=== PATIENT | female | born 1970 | race Caucasian/White ===

== ENCOUNTER 2017-06-13 14:27 | Emergency (ER) | payer SELFPAY ==
[~2017-06-13] VITALS: Ht 165.1 cm; Wt 84.9 kg
[2017-06-13 14:30] VITALS: TEMP 37.2; Ht 165.1 cm; Wt 84.9 kg
--- NOTE | 2017-06-13 15:01 | EMERGENCY ROOM VISIT NOTE ---
History Report prepared by Priyank: River Brasher Under the Supervision of: Dr. Armando Turner M.D. First contact with patient: 14:35 Chief Complaint: FOOT PAIN Stated Complaint: MIGHT HAVE INFECTION ON BILAT FEET History of Present Illness The patient is a 47 year old female who presents to the Emergency Room with complaints of worsening erythema on her feet bilaterally that began a week ago. She rates her discomfort as a 2/10 in severity. The patient states that seven weeks ago she noticed she developed nodules on her feet and palms. She states that the areas have been tender to touch. The patient states that her feet changed over the last week and became erythematous and started peeling. She reports that she has also been experiencing nausea and vomited multiple times. The patient states that her vomit has been "mucous like". She reports that her last episode of emesis was four days ago. The patient denies taking medications , fevers, chills, diarrhea, blood in stools, new soaps, using chemicals, and recent travels. The patient states that she has a history of Chron's and was diagnosed 30 years ago. She reports that she recently had a flair up in March with symptoms including nausea and diarrhea. The patient states that she has not been taking medications and has not seen a physician for her condition. She states she has not had health insurance and has not seen a physician regarding her Crohn's or any other medical complaints in quite some time. Source of History: patient Onset: a week ago Position: foot (bilateral) Symptom Intensity: 2/10 Quality: other (erythema) Timing: worsening Associated Symptoms: + nausea, + vomiting, No fevers, No chills, No diarrhea Review of Systems See HPI for pertinent positives and negatives. A total of ten systems were reviewed and were otherwise negative. Past Medical & Surgical Medical Problems: (1) Crohn's disease Family History Diabetes mellitus Social History Smoking Status: Current Every Day Smoker Alcohol Use: none Marital Status: single Housing Status: lives alone Occupation Status: employed Current/Historical Medications Scheduled Naproxen (Aleve), 440 MG PO prn ud Allergies Uncoded Allergies: SULFA (Allergy, Intermediate, rash to face, 06/13/17) Physical Exam Vital Signs Date Time Temp Pulse Resp B/P (MAP) Pulse Ox O2 Delivery O2 Flow Rate FiO2 06/13/17 19:46 153 16 115/72 98 Room Air 06/13/17 16:51 152 06/13/17 16:18 155 16 116/87 99 Room Air 06/13/17 14:30 37.2 98 18 136/97 98 Room Air Physical Exam Physical Exam GENERAL: She is oriented to person, place, and time. She appears well- developed and well-nourished. She does not appear distressed. ____ HENT: Exam performed. Head: Normocephalic and atraumatic. Right Ear: External ear normal. No mastoid tenderness. Left Ear: External ear normal. No mastoid tenderness. Mouth/Throat: The oropharynx is moist. Petechiae noted on the roof of her mouth over the hard and soft palate. No trismus in the jaw. No dental abscesses or uvula swelling. No oropharyngeal exudate or tonsillar abscesses. ____ EYES: Conjunctivae and EOM are normal. Pupils are equal, round, and reactive to light. Right eye exhibits no discharge. Left eye exhibits no discharge. No scleral icterus. ____ NECK: Normal range of motion. Neck supple. No JVD present. No spinous process tenderness present. No carotid bruit present. No rigidity. No tracheal deviation and normal range of motion present. No Brudzinski's sign and no Kernig 's sign noted. ____ CV: Normal rate, regular rhythm, normal heart sounds and intact distal pulses. There is no peripheral edema. Palpable radial pulses bue. ____ PULM/CHEST: Effort normal and breath sounds normal. No respiratory distress. No stridor. She has no wheezes. She has no rales. Chest Wall: She exhibits no tenderness. ____ ABD: The abdomen is soft. Bowel sounds are normal. She has no distension. No mass is present. There is no tenderness. There is no rebound, no guarding, no Alvarez's sign and no tenderness at McBurney's point. Rovsig negative MUSC/SKEL: Normal range of motion. There is no peripheral edema, tenderness or deformity. LYMPH: No cervical adenopathy. ____ NEURO: She is alert and oriented to person, place, and time. She has normal strength. No cranial nerve deficit or sensory deficit. Coordination and gait normal. GCS eye subscore is 4. GCS verbal subscore is 5. GCS motor subscore is 6. Cerebellar tests wnl. ____ SKIN: Over bilateral dorsal feet she has erythema with sloughing of the skin. Nikolsky positive. pustules with some drainage. Palms have nodules that are tender to touch and mildly erythematous. Erythema with mild sloughing around perianal area. Erythematous vulvar plax. ____ PSYCH: She has a normal mood and affect. Her behavior is normal. Judgment and thought content normal. ____ RECTAL: Hemoccult positive. Medical Decision & Procedures ER Provider Diagnostic Interpretation: Radiology results as stated below per my review and radiologist interpretation: RIGHT FOOT 3 VIEWS CLINICAL HISTORY: Foot infection. FINDINGS: 3 views of the right foot are obtained. No prior studies are available for comparison at the time of dictation. The skeletal structures are well mineralized. No fracture is seen. No bony erosion or periostitis is identified. An os naviculari is incidentally noted. The joint spaces of the foot are maintained. Soft tissue edema is present throughout the foot. IMPRESSION: Soft tissue edema with no acute bony abnormality identified. Electronically signed by: Brennan Colón M.D. 06/13/2017 3:35 PM Dictated Date/Time: 06/13/2017 3:34 PM LEFT FOOT 3 VIEWS CLINICAL HISTORY: Foot infection. FINDINGS: 3 views of the left foot are obtained. No prior studies are available for comparison at the time of dictation. The skeletal structures are well mineralized. No fracture is seen. No bony erosion or periostitis is identified. The joint spaces of the foot are maintained. Soft tissue edema is present throughout the foot. IMPRESSION: Soft tissue edema with no acute bony abnormality identified. Electronically signed by: Brennan Colón M.D. 06/13/2017 3:33 PM Dictated Date/Time: 06/13/2017 3:32 PM SINGLE VIEW CHEST CLINICAL HISTORY: Central venous catheter placement. FINDINGS: An AP, portable, upright chest radiograph is obtained. No prior studies are available for comparison at the time of dictation. The examination is degraded by portable technique and patient rotation. A right internal jugular central venous catheter is in place. The tip of the catheter projects over the right atrium. The cardiomediastinal silhouette is unremarkable. The lungs and pleural spaces are clear. No pneumothorax is seen. The bony thorax is grossly intact. There is mild to moderate S-shaped thoracolumbar scoliosis. IMPRESSION: 1. A right internal jugular central venous catheter has been placed. The tip of the catheter projects over the right atrium. 2. No pneumothorax is seen post procedure. 3. The lungs are clear. Electronically signed by: Brennan Colón M.D. 06/13/2017 7:49 PM Dictated Date/Time: 06/13/2017 7:48 PM Laboratory Results 06/13/17 18:35 Red Blood Count 3.08, Mean Corpuscular Volume 72.7, Mean Corpuscular Hemoglobin 22.4, Mean Corpuscular Hemoglobin Concent 30.8, Mean Platelet Volume 7.3, Neutrophils (%) (Auto) 72.3, Lymphocytes (%) (Auto) 11.4, Monocytes (%) (Auto) 13.4, Eosinophils (%) (Auto) 1.2, Basophils (%) (Auto) 0.7, Neutrophils # (Auto ) 4.30, Lymphocytes # (Auto) 0.68, Monocytes # (Auto) 0.80, Eosinophils # (Auto ) 0.07, Basophils # (Auto) 0.04 06/13/17 14:58 Test 06/13/17 14:58 06/13/17 15:57 06/13/17 17:02 06/13/17 17:22 Erythrocyte Sedimentation Rate > 90 mm/hr (0-21) Prothrombin Time 11.9 SECONDS (9.0-12.0) Prothromb Time International Ratio 1.1 (0.9-1.1) Activated Partial Thromboplast Time 28.7 SECONDS (21.0-31.0) Partial Thromboplastin Ratio 1.1 Est Creatinine Clear Calc Drug Dose 86.1 ml/min Estimated GFR () 93.3 Estimated GFR (Non- 80.5 BUN/Creatinine Ratio 8.7 (10-20) Calcium Level 7.8 mg/dl (8.5-10.1) Total Bilirubin 0.3 mg/dl (0.2-1) Direct Bilirubin 0.1 mg/dl (0-0.2) Aspartate Amino Transf (AST/SGOT) 10 U/L (15-37) Alanine Aminotransferase (ALT/SGPT) 10 U/L (12-78) Alkaline Phosphatase 114 U/L (45-117) C-Reactive Protein 22.30 mg/dl (0-0.29) Total Protein 6.9 gm/dl (6.4-8.2) Albumin 1.6 gm/dl (3.4-5.0) Lipase 64 U/L (73-393) Lyme Disease IgG Antibody NEG (NEG) Lyme Disease IgM Antibody NEG (NEG) Monoscreen NEG (NEG) Influenza Type A Antigen Neg for Influ A (NEG) Influenza Type B Antigen Neg for Influ B (NEG) Anti-Streptolysin O Antibody Screen NEG IU/ml (<200 IU) Urine Color YELLOW Urine Appearance CLEAR (CLEAR) Urine pH 6.0 (4.5-7.5) Urine Specific [place] 1.006 (1.000-1.030) Urine Protein NEG (NEG) Urine Glucose (UA) NEG (NEG) Urine Ketones NEG (NEG) Urine Occult Blood NEG (NEG) Urine Nitrite NEG (NEG) Urine Bilirubin NEG (NEG) Urine Urobilinogen NEG (NEG) Urine Leukocyte Esterase NEG (NEG) Urine Test NEG (NEG) Bedside Hemoglobin 9.2 g/dl (12.0-16.0) Bedside Hematocrit 27 % (37-47) Bedside Sodium 137 mEq/L (135-144) Bedside Potassium 3.4 mEq/L (3.3-5.0) Bedside Chloride 102 mEq/L (101-112) Bedside Total CO2 27 mEq/l (24-31) Anion Gap 13.0 mmol/L (16-25) Bedside Blood Urea Nitrogen 5 mg/dl (7-18) Bedside Creatinine 0.7 mg/dl (0.6-1.3) Bedside Glucose (other) 95 mg/dl (70-99) Bedside Ionized Calcium (Beny) 1.08 mmol/l (1.12-1.32) Bedside Troponin I < 0.030 ng/ml (0-0.045) Test 06/13/17 17:27 06/13/17 18:35 06/13/17 18:42 Bedside Lactic Acid Venous 10.33 mmol/L (0.90-1.70) White Blood Count 5.95 K/uL (4.8-10.8) Red Blood Count 3.08 M/uL (4.2-5.4) Hemoglobin 6.9 g/dL (12.0-16.0) Hematocrit 22.4 % (37-47) Mean Corpuscular Volume 72.7 fL (80-100) Mean Corpuscular Hemoglobin 22.4 pg (25-34) Mean Corpuscular Hemoglobin Concent 30.8 g/dl (32-36) Platelet Count 727 K/uL (130-400) Mean Platelet Volume 7.3 fL (7.4-10.4) Neutrophils (%) (Auto) 72.3 % Lymphocytes (%) (Auto) 11.4 % Monocytes (%) (Auto) 13.4 % Eosinophils (%) (Auto) 1.2 % Basophils (%) (Auto) 0.7 % Neutrophils # (Auto) 4.30 K/uL (1.4-6.5) Lymphocytes # (Auto) 0.68 K/uL (1.2-3.4) Monocytes # (Auto) 0.80 K/uL (0.11-0.59) Eosinophils # (Auto) 0.07 K/uL (0-0.5) Basophils # (Auto) 0.04 K/uL (0-0.2) RDW Standard Deviation 42.4 fL (36.4-46.3) RDW Coefficient of Variation 15.7 % (11.5-14.5) Immature Granulocyte % (Auto) 1.0 % Immature Granulocyte # (Auto) 0.06 K/uL (0.00-0.02) Dohle Bodies 1+ Hypochromasia PRESENT Lactic Acid Level 0.4 mmol/L (0.4-2.0) Laboratory results reviewed by me Medications Administered Medications (Trade) Dose Ordered Sig/Allan Route Start Time Stop Time Status Last Admin Dose Admin Sodium Chloride 1,000 ml @ 125 mls/hr Q8H STAT IV 06/13/17 15:04 06/13/17 20:51 DC 06/13/17 15:21 125 MLS/HR Vancomycin HCl 1000 mg/Sodium Chloride 270 ml @ 125 mls/hr NOW STAT IV 06/13/17 16:32 06/13/17 18:41 DC 06/13/17 16:32 125 MLS/HR Potassium Chloride (Klor-Con M10) 40 meq NOW STAT PO 06/13/17 16:38 06/13/17 16:40 DC 06/13/17 16:38 40 MEQ Pantoprazole Sodium 40 mg/ Dextrose 100 ml @ 20 mls/hr Q5H IV 06/13/17 17:15 06/13/17 20:51 DC 06/13/17 17:15 20 MLS/HR Sodium Chloride 1,000 ml @ 125 mls/hr Q8H STAT IV 06/13/17 17:11 06/13/17 20:51 DC 06/13/17 17:11 125 MLS/HR Procedure Central Venous Catheter Indication: Tachycardia and venous access Catheter type: triple lumen Location: right internal jugular Verbal consent was obtained after the risks and benefits were explained, including but not limited to pneumothorax, hemothorax, vessel injury, bleeding, scarring, infection, pain, and bone/joint/nerve damage. At this time, the risks of the procedure are less than the risks of NOT performing the procedure. A time out was taken and the correct patient and site identified. The patient was placed in the Trendelenburg position and the skin was prepped in the standard fashion with chlorhexidine and full sterile drapes applied. The proper landmarks were identified with ultrasound, anesthetized with 1% lidocaine without epinephrine, and the needle was inserted through the skin in the standard fashion. The needle was carefully advanced into blood vessel lumen under ultrasound guidance. The guidewire was placed uneventfully. The vessel is dilated and the catheter was placed. It was sutured into position. There was good blood return from all ports. The patient tolerated the procedure well and there were no complications. Post procedure x-ray was normal. ECG Per My Interpretation Indication: tachycardia Rate (beats per minute): 158 Rhythm: sinus tachycardia Findings: other (FL, QTC, QRS WNL // No ST elevation or depression) Change: REPEAT EKG: ST 144, FL QRS QTC WNL// No ST elevation or depression ED Course 1437: The patient was evaluated in room A11B. A complete history and physical exam was performed. 1504: Ordered Sodium Chloride 1000 ml @ 125 mls/hr IV. 1627: Called to bedside by nursing. The patient was found to be tachycardic with a rate of 150-160. She is not complaining of chest pain, shortness of breath, palpitations, or being anxious. Labs show hemoglobin of 7.9. Platelets 834. ESR elevated greater than 90 CRP elevated at 22.3. Potassium 3.1. Coags within normal limits. Influenza negative. Urine negative. ASO, Lyme, mono negative. Rapid strep negative. RPR, syphilis antibody, rickettsial antibody pending. Normal saline boluses ordered. 1632: Ordered Vancomycin HCl 1000 mg/ Sodium Chloride 270 ml @ 125 mls/hr IV, Pantoprazole Sodium 1 each IV. 1638: Ordered Potassium Chloride 40 meq PO. 1700: Ordered Pantoprazole Sodium 80 mg/Dextrose 120 ml @ 480 mls/hr IV. 1711: Ordered Sodium Chloride 1000 ml @ 125 mls/hr IV. 1715: Ordered Pantoprazole Sodium 40 mg/ Dextrose 100 ml @ 20 mls/hr IV. 1730: Ordered Zosyn 4.5 gm IV. 1736: I discussed the patients case with Dr. Rinaldi, [facility] Learning And Development Officer. He believes the patient should be transferred and assessed at the burn center as he does not feel comfortable admitting the patient. He recommends starting the patient on Clindamycin in addition to the Zosyn and vancomycin. 1741: Ordered Sodium Chloride 1000 ml @ 999 mls/hr IV. 1745: Contacted [facility] transfer center due to the patient having TEN versus staph scalded skin syndrome versus Clarke-Jackson syndrome. Transfer said they will get in touch with the burn center and call me back. 1800: Ordered Clindamycin Phosphate 600 mg/Dextrose 54 ml @ 108 mls/hr IV. 1804: I discussed the patients case with Dr. Brennan, [facility] Surgery. He understands the patient's condition and agrees to accept the patient. The patient will be transferred. He recommends no more intravenous fluids and to transfuse the patient packed red blood cells. 1841: Peripheral IV line infiltrated. I attempted to place a ultrasound peripheral IV but was unsuccessful. 1938: I performed a central line placement. See procedure notes for further detail.The x-ray reviewed by me shows central line is in place. Good flush. Air transfer team is here. Protonix drip is in place. Her repeat hemoglobin was 6.9 and her lactic acid is in normal limits. the POC lactic acid was thought to be due to a lab error. Blood transfusion was ordered for blood cell replacement but blood bank says it will take 30 more minutes for blood to be ready. Given the critical nature of the patient, we have decided to not wait for the packed blood cells to be available. The team flying the patient will be able to transfuse on board with O negative. Vancomycin and Zosyn was given and Clindamycin is running. Medical Decision On presentation the differential diagnosis was initially concerning for toxic epidermal necrolysis versus staphylococcal/streptococcal scalded skin syndrome versus Clarke-Jackson syndrome versus ITP versus TTP. The patient's labs were not concerning for TTP or ITP given her platelets were elevated. Her hemoglobin was low initially at 7.9. Rectal exam was Hemoccult positive, at that time the decision was made to begin Protonix. ESR and CRP were both greatly elevated. Given the concern for a staphylococcal/streptococcal infection, broad-spectrum antibiotics were initiated vancomycin and Zosyn. Initial lactic acid was within normal limits. Initial potassium was low at 3.1 , replaced in the emergency department. During the patient's emergency department stay, she became tachycardic in the 150s. Her tachycardia did not improve with multiple intravenous fluid boluses. Repeat [id number] testing showed a hemoglobin of 9.2 and a lactic acid 10.3, this was thought to be extremely unlikely given that the patient had initial lower hemoglobin and initial lower lactic acid, it was thought that the blood samples were hemolyzed that ran on the [id number] machines. I did discuss the case with the ICU attending at [facility] who stated he thought that the patient would be best treated at a tertiary care center and he did not feel comfortable admitting the patient to the ICU here. He also recommended adding clindamycin to the Zosyn and vancomycin. I contacted [facility] given that they were associated with being a burn center and the possibility of the patient having TEN versus SJS versus severe staph/strep infection. After discussing with Dr. Brennan, burn center specialist to [facility], he advised to give no more fluid boluses and advised to give packed red blood cell transfusion. Patient was made aware of the plan to transfer her and transfuse her packed red blood cells, she and family member at bedside agreed and signed consent. During this time, the patient's peripheral access in her left AC was lost and infiltrated. Her peripheral access in her right AC was still continuing to work fine. We attempted to place an ultrasound-guided peripheral IV, however we were unable to successfully place the peripheral IV under ultrasound. Repeat hemoglobin was 6.9. And lactic acid repeat was 0.4, confirming the inaccuracy of the POC test ran earlier. Given the patient's criticality and the necessity for blood products, antibiotics, Protonix, and other medications, central line was placed. Chest x-ray did show that the central line was in place. After central line was placed near transfer arrived. The patient was transferred to [facility]. Medication Reconcilliation Current Medication List: was personally reviewed by me Blood Pressure Screening Patient's blood pressure: Elevated blood pressure Blood pressure disposition: Elevated BP felt to be situational Consults Time Called: 1725 Consulting Physician: Dr. Rinaldi, [facility] Learning And Development Officer Returned Call: 1736 I discussed the patients case with Dr. Rinaldi [facility] Learning And Development Officer. He believes the patient should be transferred and assessed at the burn center as he does not feel comfortable assessing the patient. He recommends starting the patient on Clindamycin in addition to the Zosyn and vancomycin. Additional Consults: Time Called: 1745 Consulted Physician: Dr. Brennan, [facility] Surgery Returned Call: 1806 Additional Comments: I discussed the patients case with Dr. Brennan, [facility] Surgery. He understands the patient's condition and agrees to accept the patient. The patient will be transferred. Impression Primary Impression: Toxic epidermal necrolysis Additional Impression: GI bleed Critical Care I have personally spent greater than 120 minutes of critical care time in the direct management of this patient. This includes bedside care, interpretation of diagnostic studies, and testing, discussion with consultants, patient, and family members, and other required patient management activities. This 120 minutes is in excess of all separately billable procedures. Scribe Attestation The scribe's documentation has been prepared under my direction and personally reviewed by me in its entirety. I confirm that the note above accurately reflects all work, treatment, procedures, and medical decision making performed by me. The chart was completed utilizing [employer] voice recognition software. Grammatical errors, random word insertions, pronoun errors, and incomplete sentences are an occasional consequence of this system due to software limitations, ambient noise, and hardware issues. Any formal questions or concerns about the content, text, or information contained within the body of this dictation should be directly addressed to the physician for clarification. Departure Information Dispostion Transfer Acute Care Facility Patient Instructions My [facility] Problem Qualifiers Additional Impression: GI bleed GI bleed type/associated pathology: unspecified gastrointestinal hemorrhage type Qualified Codes: K92.2 - Gastrointestinal hemorrhage, unspecified
[2017-06-13] MEDS ORDERED: SODIUM CHLORIDE 0.9% 1000ML 1,000 ML IV STA ×3 (15:04→17:41)
[2017-06-13] MEDS ORDERED: NAPR1TAB9 PO (15:07)
[2017-06-13 15:12] LABS: HEMATOCRIT 26.2 % (37-47); HEMOGLOBIN 7.9 g/dL (12.0-16.0); MEAN CELL VOLUME 74.4 fL (80-100); MEAN CORPUSCULAR HEMOGLOBIN 22.4 pg (25-34); MEAN CORPUSCULAR HGB CONC 30.2 g/dl (32-36); MEAN PLATELET VOLUME 7.6 fL (7.4-10.4); PLATELET COUNT 834 K/uL (130-400); RED CELL DISTRIBUTION WIDTH CV 15.7 % (11.5-14.5); RED CELL DISTRIBUTION WIDTH SD 42.9 fL (36.4-46.3); WHITE BLOOD COUNT 7.85 K/uL (4.8-10.8)
--- NOTE | 2017-06-13 15:34 | DIAGNOSTIC IMAGING REPORT ---
LEFT FOOT 3 VIEWS CLINICAL HISTORY: Foot infection. FINDINGS: 3 views of the left foot are obtained. No prior studies are available for comparison at the time of dictation. The skeletal structures are well mineralized. No fracture is seen. No bony erosion or periostitis is identified. The joint spaces of the foot are maintained. Soft tissue edema is present throughout the foot. IMPRESSION: Soft tissue edema with no acute bony abnormality identified. Electronically signed by: Brennan Colón M.D. 06/13/2017 3:33 PM Dictated Date/Time: 06/13/2017 3:32 PM
[2017-06-13 15:36] LABS: ALBUMIN 1.6 gm/dl (3.4-5.0); BASO % 0.5 %; BASO ABS # 0.04 K/uL (0-0.2); CALCIUM 7.8 mg/dl (8.5-10.1); CREATININE 0.85 mg/dl (0.60-1.20); EOS % 1.1 %; EOS ABS # 0.09 K/uL (0-0.5); IG# 0.03 K/uL (0.00-0.02); LYMPH % 7.5 %; LYMPH ABS # 0.59 K/uL (1.2-3.4); MONO % 11.6 %; MONO ABS # 0.91 K/uL (0.11-0.59); NEUT % 78.9 %; NEUT ABS # 6.19 K/uL (1.4-6.5); POTASSIUM 3.1 mmol/L (3.5-5.1)
--- NOTE | 2017-06-13 15:37 | DIAGNOSTIC IMAGING REPORT ---
RIGHT FOOT 3 VIEWS CLINICAL HISTORY: Foot infection. FINDINGS: 3 views of the right foot are obtained. No prior studies are available for comparison at the time of dictation. The skeletal structures are well mineralized. No fracture is seen. No bony erosion or periostitis is identified. An os naviculari is incidentally noted. The joint spaces of the foot are maintained. Soft tissue edema is present throughout the foot. IMPRESSION: Soft tissue edema with no acute bony abnormality identified. Electronically signed by: Brennan Colón M.D. 06/13/2017 3:35 PM Dictated Date/Time: 06/13/2017 3:34 PM
[2017-06-13 15:40] LABS: MONOSPOT NEG (NEG)
[2017-06-13 15:41] LABS: INR 1.1 (0.9-1.1); PTT PATIENT 28.7 SECONDS (21.0-31.0)
[2017-06-13 15:43] LABS: TOTAL PROTEIN 6.9 gm/dl (6.4-8.2)
[2017-06-13 15:51] LABS: INFLUENZA B ANTIGEN Neg for Influ B (NEG)
[2017-06-13] MEDS ORDERED: VANCOMYCIN IV 1,000 MG in SODIUM CHLORIDE 0.9% 250ML 250 ML IV STA (16:32)
[2017-06-13] MEDS ORDERED: POTASSIUM CHLORIDE 10 MEQ TABCR PO STA (16:38)
[2017-06-13] MEDS ORDERED: VANCOMYCIN CONSULT ACTIVE PRN (16:45)
[2017-06-13] MEDS ORDERED: PANTOprazole INJ 80 MG in DEXTROSE 5% 100ML IV ONE (17:00)
[2017-06-13] MEDS ORDERED: PANTOprazole INJ 40 MG in DEXTROSE 5% 100ML IV SCH (17:15)
[2017-06-13 17:17] LABS: ISTAT CREATININE 0.7 mg/dl (0.6-1.3); ISTAT IONIZED CALCIUM 1.08 mmol/l (1.12-1.32); ISTAT POTASSIUM 3.4 mEq/L (3.3-5.0)
[2017-06-13] MEDS ORDERED: PIPERACILLIN/TAZOBACTAM 4.5 GM/100ML D5W IV STA (17:30)
[2017-06-13] MEDS ORDERED: CLINDAMYCIN 600 MG/54 ML D5W IV ONE (17:45)
[2017-06-13] MEDS ORDERED: CLINDAMYCIN IV 600 MG in DEXTROSE 5% 50ML 50 ML IV ONE (18:00)
[2017-06-13 19:01] LABS: HEMATOCRIT 22.4 % (37-47); HEMOGLOBIN 6.9 g/dL (12.0-16.0); MEAN CELL VOLUME 72.7 fL (80-100); MEAN CORPUSCULAR HEMOGLOBIN 22.4 pg (25-34); MEAN CORPUSCULAR HGB CONC 30.8 g/dl (32-36); MEAN PLATELET VOLUME 7.3 fL (7.4-10.4); PLATELET COUNT 727 K/uL (130-400); RED CELL DISTRIBUTION WIDTH CV 15.7 % (11.5-14.5); RED CELL DISTRIBUTION WIDTH SD 42.4 fL (36.4-46.3); WHITE BLOOD COUNT 5.95 K/uL (4.8-10.8)
[2017-06-13 19:27] LABS: BASO % 0.7 %; BASO ABS # 0.04 K/uL (0-0.2); EOS % 1.2 %; EOS ABS # 0.07 K/uL (0-0.5); IG# 0.06 K/uL (0.00-0.02); LYMPH % 11.4 %; LYMPH ABS # 0.68 K/uL (1.2-3.4); MONO % 13.4 %; NEUT % 72.3 %
[2017-06-13 19:46] VITALS: BP 115/72; PULSE 153; O2SAT 98
--- NOTE | 2017-06-13 19:50 | DIAGNOSTIC IMAGING REPORT ---
SINGLE VIEW CHEST CLINICAL HISTORY: Central venous catheter placement. FINDINGS: An AP, portable, upright chest radiograph is obtained. No prior studies are available for comparison at the time of dictation. The examination is degraded by portable technique and patient rotation. A right internal jugular central venous catheter is in place. The tip of the catheter projects over the right atrium. The cardiomediastinal silhouette is unremarkable. The lungs and pleural spaces are clear. No pneumothorax is seen. The bony thorax is grossly intact. There is mild to moderate S-shaped thoracolumbar scoliosis. IMPRESSION: 1. A right internal jugular central venous catheter has been placed. The tip of the catheter projects over the right atrium. 2. No pneumothorax is seen post procedure. 3. The lungs are clear. Electronically signed by: Brennan Colón M.D. 06/13/2017 7:49 PM Dictated Date/Time: 06/13/2017 7:48 PM
[2017-06-15 03:10] LABS: RAPID PLASMA REAGIN NONREACTIVE (NONREACT)
[2017-06-16 23:06] LABS: R. TYPHI IgG AB Not Detected (Not Detected); R. TYPHI IgM AB Not Detected (Not Detected); RMSF IgG AB Not Detected (Not Detected); RMSF IgM AB Not Detected (Not Detected)
== END 2017-06-13 20:00 | disposition short-term general hospital (02) ==
LOC: C.EDB 14:28 → C.EDA 20:00
DX: L51.2 Toxic epidermal necrolysis [Lyell] (principal); K92.2 Gastrointestinal hemorrhage, unspecified; K50.90 Crohn's disease, unspecified, without complications; Z83.3 Family history of diabetes mellitus; F17.210 Nicotine dependence, cigarettes, uncomplicated; Z88.2 Allergy status to sulfonamides

== ENCOUNTER 2019-11-10 10:37 | Inpatient (IN) ==
--- NOTE | 2019-11-10 11:33 | XRay Report ---
SINGLE VIEW CHEST CLINICAL HISTORY: Sepsis. FINDINGS: An AP, portable, upright chest radiograph is compared to study dated 11/06/2019. The examina tion is degraded by portable technique and patient rotation. The cardiomediastinal silhouette is unr emarkable. Low lung volumes are noted. There are layering pleural effusions with bibasilar atelectasi s. No pneumothorax is seen. The skeletal structures are osteopenic. The bony thorax is grossly intact . IMPRESSION: Layering pleural effusions with bibasilar atelectasis. ACT 112: Negative or not required by law. Electronically signed by: Brennan Colón M.D. 11/10/2019 11:32 AM
--- NOTE | 2019-11-10 11:58 | Emergency Department Note ---
Impression & Plan Atrial tachycardia, UTI (urinary tract infection), Anemia, Hypokalemia, Hypoglycemia ED Provider Note NAME: MORAIMA WISEMAN AGE: 49 SEX: F : 1970 ARRIVES VIA: Ambulance INFORMANT: Patient ED PROVIDER(S): Sundeep Ewing DO CHIEF COMPLAINT: Chest pain and elevated heart rate HPI: Patient is a 53-year-old female who presents to the ER for chest pain. She notes that the symptoms that have been there for the past several days to a week. She is truly uncertain. She also admits that her heart rate has been up. She denies any headache, change in vision, nausea vomiting or diarrhea. No dysuria urgency or frequency. No other exacerbating or remitting factors. History of a CVA with a right-sided deficit and difficulty talking. No other exacerbating or remitting factors. She was sent from [facility] for the elevated heart rate and hypotension. Patient denies any new weakness or numbness. ROS: See above HPI for pertinent positives & negatives. A total of 10 systems reviewed and were otherwise negative. PAST MEDICAL HISTORY:See Below PAST SURGICAL HISTORY:See Below FAMILY HISTORY:See Below SOCIAL HISTORY:See Below HOME MEDICATIONS:See Below ALLERGIES:See Below VITALS:See Below PHYSICAL EXAMINATION: GENERAL: Sitting up in bed, alert, well appearing, well nourished, no distress, non-toxic EYE EXAM: normal conjunctiva. OROPHARYNX: no exudate, no erythema, lips, buccal mucosa, and tongue normal and mucous membranes are moist NECK: supple, no nuchal rigidity, no adenopathy, non-tender LUNGS: Clear to auscultation. Normal chest wall mechanics HEART: Tachycardic, S1 normal and S2 normal ABDOMEN: abdomen soft, non-tender, normo-active bowel sounds, no masses, no rebound or guarding. BACK: Back is symmetrical on inspection and there is no deformity, no midline tenderness, no CVA tenderness. SKIN: no rashes and no bruising UPPER EXTREMITIES: upper extremities are grossly normal. LOWER EXTREMITIES: Bilateral pitting edema. Calves are equal bilateral NEURO EXAM: Awake alert following commands difficulty with speech not moving r ight side MEDICAL DECISION MAKING: Patient is a 49-year-old female who presents the ER for tachycardia and hypotension. She was seen here about 4 days ago and diagnosed with a UTI. IV was established blood work was obtained. Labs show no significant leukocytosis and mild anemia 11.2. INR was unremarkable. BMP with mild hypokalemia. Glucose was low at 69. Patient was given oral Replacement. Lactate was normal. LFTs and troponin were unremarkable. She denies all complaints with the exception of chest pain. EKG appeared to be consistent with previous and showed a sinus tachycardia It was difficult to interpret but in lead II P waves were visualized. Patient was given IV fluids x1 L and heart rate improved mildly. On previous visit this improved significantly. Chest x-ray shows pleural effusion which appears to be worsening.Patient was updated bedside. Patient was given a gram of Rocephin due to the previous UTI. She was discussed with hospitalist and admitted for further work-up. Triage Nursing notes reviewed. Prior medical records reviewed Vital Signs: reviewed and remarkable for Tachycardic Differential diagnosis: Differential diagnoses includes but is not limited to acute coronary syndrome, myocardial infarction, pericarditis, pulmonary embolus, aortic dissection, pneumonia, pneumothorax, musculoskeletal, shingles, esophageal. ER treatment provided: See below Diagnostics interpreted by me: ECG: Sinus tachycardia rate of 130 Normal axis No PVCs Normal QTC TWI in the septal anterior leads EKG #2Sinus rhythm rate of 130 Low voltage Normal axis T wave flattening in the lateral leads No PVCs Normal QTC Cardiac Monitoring: An order was placed for continuous cardiac monitoring. The monitor shows a rate of 133 with sinus rhythm. Laboratory studies: As stated above and show below. Imaging studies: Portable AP upright 1 view the chest shows pleural effusion Consultation(s): Discussed with hospitalist for admission ED COURSE: Procedures: none Critical Care: None Past Med/Surg History Medical History (Updated 11/10/19 @ 17:28 by Sundeep Ewing DO) Aphasia Cerebral infarct Constipation Crohn's disease Dysphagia GERD (gastroesophageal reflux disease) Hemiplegia and hemiparesis following cerebral infarction affecting right dominant side Iron deficiency anemia Major depressive disorder Non-traumatic intracranial hemorrhage senior living resident [facility] [facility] 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 Unspecified severe protein-calorie malnutrition Ventricular tachycardia Surgical History Presence of other cardiac implants and grafts Social History Smoking Status: Former smoker Smoking End Date: years ago; Hx Alcohol Use: No Hx Substance Use: No Preferred Language: Urdu Communication Ability: dysphasia Glass Setter Required: No Beliefs That Will Affect Care: None Current Living Situation: Half-Way Current Living Situation Comment: [facility] resident Other Information That Helps Us Care for You: No Feels Safe at Home: Yes Safety Concerns: Feels Safe At This Time Allergies Allergies Allergy/AdvReac Type Severity Reaction Status Date / Time Sulfa (Sulfonamide Allergy Intermediate RASH TO Verified 11/10/19 12:36 Antibiotics) FACE Home Meds Home Medications Medication Instructions Recorded Confirmed Calmoseptine 1 applic TOPICAL TID PRN 11/02/19 11/10/19 Fleet Enema 118 ml [place] DAILY PRN 11/02/19 11/10/19 Lactobacillus acidoph-L.bulgar 1 tab PO QDL 11/02/19 11/10/19 [Floranex] acetaminophen [Tylenol] 325 mg PO QID PRN 11/02/19 11/10/19 aspirin 81 mg PO QAM 11/02/19 11/10/19 atorvastatin 40 mg PO PM 11/02/19 11/10/19 bisacodyl 5 mg [place] BID PRN 11/02/19 11/10/19 bisacodyl 20 mg PO HS 11/02/19 11/10/19 fluoxetine 20 mg PO QAM 11/02/19 11/10/19 gabapentin 100 mg PO PM 11/02/19 11/10/19 loperamide 2 mg PO TID 11/02/19 11/10/19 magnesium hydroxide [Milk Of 30 ml PO DAILY PRN 11/02/19 11/10/19 Magnesia Concentrated] mirtazapine 15 mg PO PM 11/02/19 11/10/19 ondansetron HCl [Zofran] 4 mg PO Q6H PRN 11/02/19 11/10/19 pantoprazole 20 mg PO QAM 11/02/19 11/10/19 polyethylene glycol 3350 [Miralax] 17 g PO ONCE 11/02/19 11/10/19 thiamine HCl (vitamin B1) 100 mg PO QAM 11/02/19 11/10/19 enoxaparin 40 mg SUBCUT DAILY 11/06/19 11/10/19 metoprolol tartrate 12.5 mg PO BID 11/06/19 11/10/19 multivitamin 1 tab PO DAILY 11/06/19 11/10/19 Previous Rx's Medication Instructions Recorded Saccharomyces samirulardii [Florastor] 250 mg PO BID #20 cap 11/06/19 cefdinir 300 mg PO BID 7 Days #14 cap 11/06/19 Results & Data (ED) Vital Signs Vital Signs - 24 hr 11/10/19 10:44 11/10/19 10:45 11/10/19 10:51 Temperature 36.9 C Temperature Source Oral Pulse Rate 124 H 133 H 134 H Pulse Rate [Left] Pulse Rate from SpO2 Sensor 133 H 133 H Pulse Rhythm [Left] Pulse Strength [Left] Respiratory Rate 20 14 13 Respiratory Effort / Characteristics Non-Labored Spontaneous Respiratory Depth Normal Respiratory Pattern Regular Blood Pressure 116/76 108/77 Blood Pressure [Left Arm] Blood Pressure Mean 89 84 Blood Pressure Mean [Left Arm] Blood Pressure Position [Left Arm] Pulse Oximetry 98 99 99 Oxygen Delivery Method Room Air Sepsis Recent Fever Within 48 Hours No Sepsis New/Unexplained Change in Mental Status No Sepsis Action Taken by Nursing No Action Required 11/10/19 12:05 11/10/19 13:49 Temperature Temperature Source Pulse Rate Pulse Rate [Left] 140 H Pulse Rate from SpO2 Sensor Pulse Rhythm [Left] Regular Pulse Strength [Left] Normal Respiratory Rate 18 Respiratory Effort / Characteristics Non-Labored Spontaneous Respiratory Depth Normal Respiratory Pattern Blood Pressure Blood Pressure [Left Arm] 90/74 L Blood Pressure Mean Blood Pressure Mean [Left Arm] 79 Blood Pressure Position [Left Arm] Lying Pulse Oximetry 98 Oxygen Delivery Method Room Air Room Air Sepsis Recent Fever Within 48 Hours Sepsis New/Unexplained Change in Mental Status Sepsis Action Taken by Nursing Laboratory Data Result diagrams: 11/10/19 12:27 11/10/19 12:27 Lab Results 11/10/19 11/10/19 11/10/19 Range/Units 12:27 12:27 12:27 WBC 6.67 (4.8-10.8) K/uL RBC 3.95 L (4.2-5.4) M/uL Hgb 11.2 L (12.0-16.0) g/dL POC Hgb (12.0-16.0) g/dl Hct 33.1 L (37-47) % POC Hct (37-47) % MCV 83.8 (80-100) fL MCH 28.4 (25-34) pg MCHC 33.8 (32-36) g/dL RDW Std Deviation 50.7 H (36.4-46.3) fL RDW Coeff of Marcelina 16.6 H (11.5-14.5) % Plt Count 334 (130-400) K/uL MPV 9.2 (7.4-10.4) fL Immature Gran % (Auto) 0.1 % Neut % (Auto) 83.2 % Lymph % (Auto) 9.9 % Ward % (Auto) 5.1 % Eos % (Auto) 1.0 % Baso % (Auto) 0.7 % Neut # (Auto) 5.54 (1.4-6.5) K/uL Lymph # (Auto) 0.66 L (1.2-3.4) K/uL Ward # (Auto) 0.34 (0.11-0.59) K/uL Eos # (Auto) 0.07 (0-0.5) K/uL Baso # (Auto) 0.05 (0-0.2) K/uL Immature Gran # (Auto) 0.01 (0.00-0.02) K/uL PT 14.9 H (9.0-12.0) Seconds INR 1.4 H (0.9-1.1) APTT 28.6 (21.0-31.0) Seconds PTT Ratio 1.0 POC Sodium (135-144) mmol/L Sodium 139 (136-145) mmol/L POC Potassium (3.3-5.0) mmol/L Potassium 3.4 L (3.5-5.1) mmol/L POC Chloride (101-112) mmol/L Chloride 110 H (98-107) mmol/L Carbon Dioxide 22 (21-32) mmol/L POC Total CO2 (24-31) mmol/L Anion Gap 7.0 (3-11) POC Anion Gap (16-25) mmol/L POC BUN (7-18) mg/dl BUN 11 (7-18) mg/dl Creatinine 0.61 (0.6-1.2) mg/dl POC Creatinine (0.6-1.3) mg/dl Est Cr Clr Drug Dosing 117.3 ml/min Est GFR ( Amer) 121.7 Est GFR (Non-Af Amer) 105.0 BUN/Creatinine Ratio 17.8 (10-20) Glucose 62 L (70-99) mg/dl POC Glucose (other) (70-99) mg/dl Lactate (0.4-2.0) mmol/L Calcium 7.0 L (8.5-10.1) mg/dl POC Ioniz Calcium Beny (1.12-1.32) mmol/l Magnesium 2.3 (1.8-2.4) mg/dl Total Bilirubin 0.3 (0.2-1) mg/dl AST 61 H (15-37) U/L ALT 42 (12-78) U/L Alkaline Phosphatase 170 H (45-117) U/L Troponin I < 0.015 (0-0.045) ng/ml Total Protein 4.3 L (6.4-8.2) gm/dl Albumin 0.8 L (3.4-5.0) gm/dl Globulin 3.5 (2.5-4.0) gm/dl Albumin/Globulin Ratio 0.2 L (0.9-2) 11/10/19 11/10/19 Range/Units 12:39 12:44 WBC (4.8-10.8) K/uL RBC (4.2-5.4) M/uL Hgb (12.0-16.0) g/dL POC Hgb 11.2 L (12.0-16.0) g/dl Hct (37-47) % POC Hct 33 L (37-47) % MCV (80-100) fL MCH (25-34) pg MCHC (32-36) g/dL RDW Std Deviation (36.4-46.3) fL RDW Coeff of Marcelina (11.5-14.5) % Plt Count (130-400) K/uL MPV (7.4-10.4) fL Immature Gran % (Auto) % Neut % (Auto) % Lymph % (Auto) % Ward % (Auto) % Eos % (Auto) % Baso % (Auto) % Neut # (Auto) (1.4-6.5) K/uL Lymph # (Auto) (1.2-3.4) K/uL Ward # (Auto) (0.11-0.59) K/uL Eos # (Auto) (0-0.5) K/uL Baso # (Auto) (0-0.2) K/uL Immature Gran # (Auto) (0.00-0.02) K/uL PT (9.0-12.0) Seconds INR (0.9-1.1) APTT (21.0-31.0) Seconds PTT Ratio POC Sodium 137 (135-144) mmol/L Sodium (136-145) mmol/L POC Potassium 3.3 (3.3-5.0) mmol/L Potassium (3.5-5.1) mmol/L POC Chloride 102 (101-112) mmol/L Chloride (98-107) mmol/L Carbon Dioxide (21-32) mmol/L POC Total CO2 20 L (24-31) mmol/L Anion Gap (3-11) POC Anion Gap 19.0 (16-25) mmol/L POC BUN 10 (7-18) mg/dl BUN (7-18) mg/dl Creatinine (0.6-1.2) mg/dl POC Creatinine 0.7 (0.6-1.3) mg/dl Est Cr Clr Drug Dosing ml/min Est GFR ( Amer) Est GFR (Non-Af Amer) BUN/Creatinine Ratio (10-20) Glucose (70-99) mg/dl POC Glucose (other) 67 L* (70-99) mg/dl Lactate 0.9 (0.4-2.0) mmol/L Calcium (8.5-10.1) mg/dl POC Ioniz Calcium Beny 1.11 L (1.12-1.32) mmol/l Magnesium (1.8-2.4) mg/dl Total Bilirubin (0.2-1) mg/dl AST (15-37) U/L ALT (12-78) U/L Alkaline Phosphatase (45-117) U/L Troponin I (0-0.045) ng/ml Total Protein (6.4-8.2) gm/dl Albumin (3.4-5.0) gm/dl Globulin (2.5-4.0) gm/dl Albumin/Globulin Ratio (0.9-2) Administered Medications Discontinued Medications Sodium Chloride (Nss 1000ml) 1,000 mls @ 999 mls/hr IV .Q1H1M ONE Stop: 11/10/19 13:00 Last Infusion: 11/10/19 14:42 Dose: 0 mls/hr Documented by: [id number] Admin: 11/10/19 13:41 Dose: 999 mls/hr Documented by: [id number] Ceftriaxone Sodium (Rocephin) 1,000 mg in 50 mls @ 100 mls/hr IV NOW STA Stop: 11/10/19 12:30 Last Infusion: 11/10/19 14:12 Dose: 0 mls/hr Documented by: [id number] Admin: 11/10/19 13:42 Dose: 100 mls/hr Documented by: [id number] Sodium Chloride (Nss 1000ml) 1,000 mls @ 999 mls/hr IV .Q1H1M ONE Stop: 11/10/19 14:28 Last Infusion: 11/10/19 14:44 Dose: 0 mls/hr Documented by: [id number] Admin: 11/10/19 13:43 Dose: 999 mls/hr Documented by: [id number] Discharge Plan Visit Data Chief Complaint: Tachycardia ED Provider: Sundeep Ewing Discharge Problem: Atrial tachycardia, UTI (urinary tract infection), Anemia, Hypokalemia, Hypoglycemia Patient Disposition: Admitted As Inpatient Discharge Instructions Interventions: ED Discharge Assessment Last Done: 11/10/19 15:43 Discharge Problem: UTI (urinary tract infection) Qualifiers: Urinary tract infection type: acute cystitis Hematuria presence: with hematuria Qualified Code(s): N30.01 - Acute cystitis with hematuria Anemia Qualifiers: Anemia type: unspecified type Qualified Code(s): D64.9 - Anemia, unspecified
[2019-11-10] MEDS ORDERED: SODIUM CHLORIDE 0.9% 1000ML 1,000 ML IV ONE ×2 (12:00→13:28)
[2019-11-10] MEDS ORDERED: cefTRIAXone SODIUM 1,000 MG/50 ML BAG IV STA (12:01)
[2019-11-10 12:56] LABS: iSTAT Creatinine 0.7 mg/dl (0.6-1.3); iSTAT Hemoglobin 11.2 g/dl (12.0-16.0); iSTAT Ionized Calcium 1.11 mmol/l (1.12-1.32); iSTAT Potassium 3.3 mmol/L (3.3-5.0)
[2019-11-10 12:56] LABS: Basophils # (auto) 0.05 K/uL (0-0.2); Basophils % (auto) 0.7 %; Eosinophils # (auto) 0.07 K/uL (0-0.5); Hematocrit (blood only) 33.1 % (37-47); Hemoglobin 11.2 g/dL (12.0-16.0); Immature Granulocytes # (auto) 0.01 K/uL (0.00-0.02); Immature Granulocytes % (auto) 0.1 %; Lymphocytes # (auto) 0.66 K/uL (1.2-3.4); Lymphocytes % (auto) 9.9 %; Mean Corpuscular Hemoglobin 28.4 pg (25-34); Mean Corpuscular Hgb Conc 33.8 g/dL (32-36); Mean Corpuscular Volume 83.8 fL (80-100); Mean Platelet Volume 9.2 fL (7.4-10.4); Monocytes # (auto) 0.34 K/uL (0.11-0.59); Monocytes % (auto) 5.1 %; Neutrophils # (auto) 5.54 K/uL (1.4-6.5); Neutrophils % (auto) 83.2 %; Platelet Count 334 K/uL (130-400); RDW Coefficient of Variation 16.6 % (11.5-14.5); RDW Standard Deviation 50.7 fL (36.4-46.3); Red Blood Count 3.95 M/uL (4.2-5.4); White Blood Count 6.67 K/uL (4.8-10.8)
[2019-11-10 13:04] LABS: INR 1.4 (0.9-1.1); Partial Thromboplastin Time 28.6 Seconds (21.0-31.0); Prothrombin Time 14.9 Seconds (9.0-12.0)
[2019-11-10 13:15] LABS: Alanine Aminotransferase 42 U/L (12-78); Albumin Level 0.8 gm/dl (3.4-5.0); Aspartate Aminotransferase 61 U/L (15-37); BUN Creatinine Ratio 17.8 (10-20); Blood Urea Nitrogen 11 mg/dl (7-18); Carbon Dioxide 22 mmol/L (21-32); Chloride 110 mmol/L (98-107); Creatinine Clr Calc Pharmacy 117.3 ml/min; Est GFR (African American) 121.7; Glucose 62 mg/dl (70-99); Magnesium 2.3 mg/dl (1.8-2.4); Potassium 3.4 mmol/L (3.5-5.1); Sodium 139 mmol/L (136-145)
[2019-11-10 13:20] LABS: Albumin Globulin Ratio 0.2 (0.9-2); Alkaline Phosphatase 170 U/L (45-117); Bilirubin,Total 0.3 mg/dl (0.2-1); Globulin 3.5 gm/dl (2.5-4.0); Total Protein 4.3 gm/dl (6.4-8.2); Troponin I < 0.015 ng/ml (0-0.045)
--- NOTE | 2019-11-10 13:45 | Electrocardiogram Report ---
Test Reason : Blood Pressure : / mmHG Vent. Rate : 130 BPM Atrial Rate : 144 BPM P-R Int : 000 ms QRS Dur : 074 ms QT Int : 312 ms P-R-T Axes : 000 028 -46 degrees QTc Int : 459 ms Poor data quality, interpretation may be adversely affected Sinus tachycardia Low voltage QRS Diffuse Minor Nonspecific T wave abnormality Abnormal ECG When compared with ECG of 06-NOV-2019 13:58, No significant change Confirmed by Jaden Tapia ([id number]) on 11/10/2019 1:45:18 PM Referred By: [facility] Confirmed By:Jaden Tapia
--- NOTE | 2019-11-10 13:52 | History & Physical Report ---
Date of Service November 10, 2019 Assessment & Plan (1) Sinus tachycardia: Emergency department requested observation for sinus tachycardia in a patient with a history of the same. He was evaluation on 05 November revealed UTI. Patient was hydrated at that time with some modest improvement of her tachycardia and treated with cephalosporin for an E. coli UTI that was resistant to penicillin and Bactrim. Subsequently in the interim the patient had an endoscopy and colonoscopy due to her history of reflux and anemia with a history of Crohn's disease. Upper endoscopy was normal biopsies were taken. Colonoscopy revealed a poor prep but the examined distal colon was normal Given her sinus tachycardia this point time there is no defined cause or source will have her on the monitor hydrate her escalate doses of beta-blockers. Last TSH check was November 05 which was normal Possible CT angiogram will be undertaken although she has been on prophylactic Lovenox while at the detention has bilateral lower extremity edema, and the exact duration of any lower extremity edema is unknown, ERIC Kumar also orderedr (2) UTI (urinary tract infection): Patient has an E. coli UTI document 04/07 unclear whether this was a play in her tachycardia she has had 3 days of treatment we will continue to treat her for total course of 7 days with ceftriaxone (3) History of cerebrovascular accident: Unfortunate history of cerebrovascular accidents he is maintained on aspirin 81 atorvastatin 40 (4) Dysphagia: Aspiration precautions were undertaken (5) GERD (gastroesophageal reflux disease): Patient continues on pantoprazole (6) Major depressive disorder: Mirtazapine 15 at bedtime gabapentin 100 p.m. fluoxetine 20 every morning (7) DVT prophylaxis: Lovenox for DVT prevention has been at the detention and will be continued History of Present Illness Primary Care Provider: [facility] Allergies Allergy/AdvReac Type Severity Reaction Status Date / Time Sulfa (Sulfonamide Allergy Intermediate RASH TO Verified 11/10/19 12:36 Antibiotics) FACE Home Medications Home Medications Medication Instructions Recorded Confirmed Type Calmoseptine 1 applic TOPICAL TID PRN 11/02/19 11/10/19 History Fleet Enema 118 ml [place] DAILY PRN 11/02/19 11/10/19 History Lactobacillus acidoph-L.bulgar 1 tab PO QDL 11/02/19 11/10/19 History [Floranex] acetaminophen [Tylenol] 325 mg PO QID PRN 11/02/19 11/10/19 History aspirin 81 mg PO QAM 11/02/19 11/10/19 History atorvastatin 40 mg PO PM 11/02/19 11/10/19 History bisacodyl 5 mg [place] BID PRN 11/02/19 11/10/19 History bisacodyl 20 mg PO HS 11/02/19 11/10/19 History fluoxetine 20 mg PO QAM 11/02/19 11/10/19 History gabapentin 100 mg PO PM 11/02/19 11/10/19 History loperamide 2 mg PO TID 11/02/19 11/10/19 History magnesium hydroxide [Milk Of 30 ml PO DAILY PRN 11/02/19 11/10/19 History Magnesia Concentrated] mirtazapine 15 mg PO PM 11/02/19 11/10/19 History ondansetron HCl [Zofran] 4 mg PO Q6H PRN 11/02/19 11/10/19 History pantoprazole 20 mg PO QAM 11/02/19 11/10/19 History polyethylene glycol 3350 [Miralax] 17 g PO ONCE 11/02/19 11/10/19 History thiamine HCl (vitamin B1) 100 mg PO QAM 11/02/19 11/10/19 History Saccharomyces boulardii [Florastor] 250 mg PO BID #20 cap 11/06/19 11/10/19 Rx cefdinir 300 mg PO BID 7 Days #14 cap 11/06/19 11/10/19 Rx enoxaparin 40 mg SUBCUT DAILY 11/06/19 11/10/19 History metoprolol tartrate 12.5 mg PO BID 11/06/19 11/10/19 History multivitamin 1 tab PO DAILY 11/06/19 11/10/19 History Past Med/Surg History Medical History (Updated 11/10/19 @ 17:28 by Sundeep Ewing DO) Aphasia Cerebral infarct Constipation Crohn's disease Dysphagia GERD (gastroesophageal reflux disease) Hemiplegia and hemiparesis following cerebral infarction affecting right dominant side Iron deficiency anemia Major depressive disorder Non-traumatic intracranial hemorrhage longterm resident [place] [facility] 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 Unspecified severe protein-calorie malnutrition Ventricular tachycardia Surgical History Presence of other cardiac implants and grafts Social History Smoking Status: Former smoker Smoking End Date: years ago; Hx Alcohol Use: No Hx Substance Use: No Preferred Language: Nigerien Communication Ability: dysphasia Metal Checker Required: No Beliefs That Will Affect Care: None Current Living Situation: Prison Current Living Situation Comment: [facility] resident Other Information That Helps Us Care for You: No Feels Safe at Home: Yes Safety Concerns: Feels Safe At This Time Review of Systems Review of Systems: Mild distress and fatigue no headache, blurry or double vision no speech or swallowing issues no chest pain, pressure or palpitations no shortness of breath, cough or wheezes no abdominal pain, nausea or vomiting, diarrhea or constipation no dysuria, hematuria or frequency no focal joint pain or swelling no back pain, CVA tenderness or radicular pain no bruising, bleeding or rashes no focal signs of weakness or numbness or altered sensation no complaints or anxiety or depression. Physical Exam Physical Exam: The patient appeared well nourished and normally developed. Vital signs as documented. Head exam is normocephalic atraumatic no scleral icterus Neck is without JVD, thyromegaly, or carotid bruits. Lungs are clear to auscultation, no focal loss of breath sounds Cardiac exam, Rhythm is regular.. No murmurs, rubs or gallops. Abdominal exam reveals normal bowel sounds, soft non tender, no masses Extremities are nonedematous and both pedal pulses are normal. Neurologic exam is alert and oriented, no focal loss of strength or sensation Skin is without bruises or rashes Psychologically is without concerns for anxiety or depression. Results & Data Results & Data ([facility]) Vital Signs (Past 12 Hours) Vital Signs Temp Pulse Pulse Resp BP BP Pulse Ox 11/10/19 13:49 140 H 18 90/74 L 98 11/10/19 10:51 134 H 13 99 11/10/19 10:45 133 H 14 108/77 99 11/10/19 10:44 98.4 F 124 H 20 116/76 98 chest x-ray performed 11/10/2019 shows layering pleural effusions with bibasilar atelectasis no infiltrates EKG shows sinus tachycardia PG Care Time/CCT Total # of Minutes Spent Total Time Spent with Patient: Total time spent is greater than 50% in coordination of care (as documented) at patient's floor/unit and/or counseling patient: Coding Level of Care Code 21574 OBS Care - Level 3 Diagnoses Sinus tachycardia R00.0 UTI (urinary tract infection) N30.00 Hematuria presence: without hematuria Urinary tract infection type: acute cystitis History of cerebrovascular accident Z86.73 Dysphagia R13.10 GERD (gastroesophageal reflux disease) K21.9 Major depressive disorder F32.9 DVT prophylaxis Z29.9 (1) UTI (urinary tract infection) Hematuria presence: without hematuria Urinary tract infection type: acute cystitis Qualified Code(s): N30.00 - Acute cystitis without hematuria
--- NOTE | 2019-11-10 14:05 | Electrocardiogram Report ---
Test Reason : Blood Pressure : / mmHG Vent. Rate : 139 BPM Atrial Rate : 139 BPM P-R Int : 100 ms QRS Dur : 074 ms QT Int : 310 ms P-R-T Axes : 038 015 -82 degrees QTc Int : 471 ms Probable Sinus tachycardia Low voltage QRS Diffuse Minor Nonspecific T wave abnormality Abnormal ECG When compared with ECG of 10-NOV-2019 10:44, No significant change Confirmed by Jaden Tapia ([id number]) on 11/10/2019 2:04:51 PM Referred By: [facility] Confirmed By:Jaden Tapia
[2019-11-10] MEDS ORDERED: NON-FORMULARY MEDICATION (Acetaminophen [Tylenol] 325 MG) PO PRN (16:10)
[2019-11-10] MEDS ORDERED: ENOXAPARIN INJ 40 MG/0.4 ML SYR SQ SCH (16:10)
[2019-11-10] MEDS ORDERED: ALUMINUM/MAGNESIUM SUSP 30 ML UDC PO PRN (16:10)
[2019-11-10] MEDS ORDERED: METOPROLOL TARTRATE 1 MG/ML VIAL IV PRN (16:10)
[2019-11-10] MEDS ORDERED: bisacodyL 5 MG TABEC PO PRN (16:15)
[2019-11-10] MEDS ORDERED: ONDANSETRON 4 MG OD TAB PO PRN (16:19)
[2019-11-10] MEDS ORDERED: LOPERAMIDE HCL 2 MG CAP PO PRN (16:22)
[2019-11-10] MEDS: SACCHAROMYCES BOULARDII 250 MG CAP PO SCH (20:33)
[2019-11-10] MEDS: MIRTAZAPINE TAB 15 MG TAB PO SCH (20:33)
[2019-11-10] MEDS: METOPROLOL TARTRATE 25 MG TAB PO SCH (20:33)
[2019-11-10] MEDS: GABAPENTIN 100 MG CAP PO SCH (20:33)
[2019-11-10] MEDS: ATORVASTATIN 40 MG TAB PO SCH (20:34)
[2019-11-10] MEDS ORDERED: bisacodyL 5 MG TABEC PO SCH (21:00)
[2019-11-10] MEDS ORDERED: OPTIRAY 320 125ml IV ONE (22:37)
--- NOTE | 2019-11-11 01:09 | Communication Note ---
Date of Service: November 11, 2019 Received a call from STAT RAD physician Dr. Eloy Roldan MD at 1:10am. CTA of Chest showing left lower lobe embolism (small clot burden). Venous duplex positive for non-occlusive DVT in left distal popliteal vein. Initiated Heparin ggt. Consult placed for case management to help assess DOAC coverage upon discharge. Resident Activity Tracking Resident Involvement: Resident Care Provided Care Provided: Adult Hospital Medicine
[2019-11-11] MEDS ORDERED: HEPARIN IV BOLUS 5,000 UNITS in SYRINGE 0 ML IV ONE (01:45)
[2019-11-11] MEDS: HEPARIN SODIUM/DEXTROSE 25,000 UNITS/500 ML BAG IV SCH ×3 (01:59→23:19)
--- NOTE | 2019-11-11 06:54 | Communication Note ---
Date of Service: November 11, 2019 Nurse called and informed that ever since patient was started on heparin drip overnight, she developed bruising on L arm, above and below IV site. Bruising progressive (expansion up and down arm and getting darker) since it first appeared. Heparin drip held. Recommend day team reassess and consider Lovenox vs. Doac.
--- NOTE | 2019-11-11 06:55 | Ultrasound Report ---
ULTRASOUND BILATERAL LOWER EXTREMITY VENOUS CLINICAL HISTORY: Lower extremity edema. COMPARISON STUDY: No priors. TECHNIQUE: Real-time, grayscale, and color Doppler sonography of the deep veins of the right and left lower extremity was performed from the inguinal crease to the calf. Compression and augmentation wer e utilized. FINDINGS: Right lower extremity: There is no sonographic evidence of deep venous thrombosis identified througho ut the right lower extremity. The common femoral, superficial femoral, and popliteal veins are patent and normally compressible. The greater saphenous vein and the profunda femoris vein at the junction with the common femoral vein are clear. The visualized calf veins are patent. Soft tissue edema is no jax throughout the right leg. Left lower extremity: There is nearly occlusive deep venous thrombosis identified in the distal left popliteal vein. This extends into the calf within the posterior tibial, peroneal, and anterior tibial veins. The common femoral and superficial femoral veins are patent and normally compressible. The gr eater saphenous vein and the profunda femoris vein at the junction with the common femoral vein are c lear. Soft tissue edema is noted throughout the left leg. IMPRESSION: 1. There is nearly occlusive deep venous thrombosis identified in the left popliteal vein which exten ds into the calf. 2. There is no sonographic evidence of deep venous thrombosis identified in the right lower extremity . ACT 112: Negative or not required by law. Electronically signed by: Brennan Colón M.D. 11/11/2019 6:54 AM
--- NOTE | 2019-11-11 07:42 | CT Scan Report ---
CT ANGIOGRAM OF THE CHEST CLINICAL HISTORY: Dyspnea. COMPARISON STUDY: Chest x-ray dated 11/10/2019. TECHNIQUE: Following the IV administration of 118 cc of Optiray 320, CT angiogram of the chest was pe rformed from the upper abdomen to the thoracic inlet utilizing the pulmonary embolus protocol. Images are reviewed in the axial, sagittal, and coronal planes. 3-D MIPS images are created and assessed. I V contrast was administered without complication. A dose lowering technique was utilized adhering to the principles of ALARA. The examination is compromised by motion artifact. CT DOSE: 355.00 mGy.cm FINDINGS: Thyroid: Imaged portions of the thyroid gland are normal in size and heterogeneous in attenuation. Thoracic aorta: The thoracic aorta is normal in caliber and demonstrates 4-vessel variant arch anatom y. An aberrant right subclavian artery arises as a fourth branch and courses posterior to the esophag us. The arch vessels are patent. No dissection is seen. Pulmonary vasculature: The pulmonary trunk is normal in caliber. There are segmental and subsegmental pulmonary emboli within branches of the right middle, right lower, left upper, and left lower lobe p ulmonary arteries. Heart: The heart is normal in size and there is a small pericardial effusion. Lungs and pleural spaces: Evaluation of the lung parenchyma is degraded by motion artifact. The trach ea and central airways are clear. There are moderate to large bilateral pleural effusions with associ ated atelectasis. Mediastinum: There is no mediastinal lymphadenopathy. Marychuy: Clear. Axillae: There is no axillary lymphadenopathy. Upper abdomen: The liver is steatotic. A small volume of ascites is noted in the upper abdomen. A sma ll hiatal hernia is noted. Skeletal structures: The skeletal structures are osteopenic. Degenerative change and kyphoscoliosis a re noted in the thoracic spine. No lytic or blastic bony lesions are seen. IMPRESSION: 1. There are bilateral segmental and subsegmental pulmonary emboli as above. 2. Moderate to large bilateral pleural effusions with associated atelectasis. 3. Hepatic steatosis. 4. Ascites is noted in the upper abdomen. ACT 112: Negative or not required by law. Electronically signed by: Brennan Colón M.D. 11/11/2019 7:40 AM
[2019-11-11 08:36] LABS: Hematocrit (blood only) 29.7 % (37-47); Hemoglobin 9.9 g/dL (12.0-16.0); Mean Corpuscular Hgb Conc 33.3 g/dL (32-36); Mean Corpuscular Volume 83.9 fL (80-100); Mean Platelet Volume 9.2 fL (7.4-10.4); Platelet Count 284 K/uL (130-400); RDW Coefficient of Variation 16.6 % (11.5-14.5); Red Blood Count 3.54 M/uL (4.2-5.4); White Blood Count 5.15 K/uL (4.8-10.8)
[2019-11-11] MEDS: SACCHAROMYCES BOULARDII 250 MG CAP PO SCH ×2 (08:39→20:18)
[2019-11-11] MEDS: METOPROLOL TARTRATE 25 MG TAB PO SCH ×2 (08:39→20:21)
[2019-11-11] MEDS: ASPIRIN 81 MG ECTAB PO SCH (08:39)
[2019-11-11] MEDS: PANTOprazole 40 MG TAB PO SCH (08:40)
[2019-11-11] MEDS: FLUOXETINE HCL 20 MG CAP PO SCH (08:40)
[2019-11-11] MEDS: MULTIVITAMIN TAB PO SCH (08:40)
[2019-11-11] MEDS: THIAMINE HCL 100 MG TAB PO SCH (08:40)
[2019-11-11] MEDS: LACTOBACILLUS ACIDOPHILUS (FLORANEX) TAB PO SCH (08:40)
[2019-11-11] MEDS ORDERED: ENOXAPARIN INJ 40 MG/0.4 ML SYR SQ SCH (09:00)
[2019-11-11] MEDS ORDERED: SODIUM CHLORIDE 0.9% 1000ML 1,000 ML IV ONE (09:00)
[2019-11-11 09:07] LABS: BUN Creatinine Ratio 17.6 (10-20); Calcium 6.7 mg/dl (8.5-10.1); Creatinine Clr Calc Pharmacy 119.3 ml/min; Est GFR (African American) 122.3; Est GFR (Non-African American) 105.5; Potassium 3.3 mmol/L (3.5-5.1)
[2019-11-11 09:29] LABS: Partial Thromboplastin Ratio > 5.0; Partial Thromboplastin Time > 139.0 Seconds (21.0-31.0)
[2019-11-11 09:35] LABS: Hemoglobin 10.4 g/dL (12.0-16.0); Mean Corpuscular Hemoglobin 28.1 pg (25-34); Mean Corpuscular Volume 83.8 fL (80-100); Mean Platelet Volume 9.5 fL (7.4-10.4); Platelet Count 307 K/uL (130-400); RDW Coefficient of Variation 16.5 % (11.5-14.5); RDW Standard Deviation 50.5 fL (36.4-46.3); White Blood Count 5.07 K/uL (4.8-10.8)
[2019-11-11 09:39] LABS: Mean Corpuscular Hgb Conc 33.5 g/dL (32-36)
--- NOTE | 2019-11-11 10:33 | CT Scan Report ---
CT SCAN OF THE ABDOMEN AND PELVIS WITHOUT IV CONTRAST CLINICAL HISTORY: Abdominal bruising. COMPARISON STUDY: Pelvic ultrasound dated 08/11/2005. TECHNIQUE: CT scan of the abdomen and pelvis is performed from the lung bases to the proximal femora. Images are reviewed in the axial, sagittal, and coronal planes. IV contrast was not administered for this examination as per the referring clinician. The examination is degraded by streak artifact from the arms which could not elevated above the abdomen. There is also mild motion artifact. A dose lowe ring technique was utilized adhering to the principles of ALARA. CT DOSE: 1121.94 mGy.cm FINDINGS: Lung bases: The heart is normal in size noting a small pericardial effusion. There are coronary arter y calcifications. There are moderate pleural effusions with bibasilar consolidation. An electronic de vice is noted in the left chest wall. Liver: The unenhanced liver is normal in size and demonstrates diffusely diminished attenuation consi stent with severe hepatic steatosis. There is no intrahepatic biliary ductal dilatation. Gallbladder: Unremarkable. Spleen: Normal in size and attenuation. Pancreas: The unenhanced pancreas is atrophic and grossly unremarkable. Adrenal glands: Unremarkable. Kidneys: The unenhanced kidneys demonstrate cortical atrophy and are without hydronephrosis. There is retained cortical contrast, is also excreted IV contrast within the renal collecting systems and ure ters. The presence of renal calculi cannot be assessed. There is no evidence of contour deforming lopez al mass lesion. Abdominal vasculature: The abdominal aorta is normal in course and caliber. Bowel: Mild wall thickening suggested throughout the colon, greatest from the transverse colon to the sigmoid. There is minimal pericolonic infiltration. The appearance suggests a mild nonspecific colit is. No bowel obstruction is seen. The appendix is partially visualized and grossly unremarkable. Peritoneum/retroperitoneum: There is a small volume of abdominopelvic ascites. No intraperitoneal melida e air is seen. No hyperdense fluid collection is identified in the peritoneum or retroperitoneal spac e to suggest hematoma. Lymphadenopathy: None. Pelvic viscera: The bladder is normal as visualized, and is filled with excreted IV contrast. The yun favian and adnexa are normal as imaged. Skeletal structures: The skeletal structures are osteopenic. Mild lumbosacral spondylosis is observed . No lytic or blastic lesions are seen. Soft tissues: There is body wall edema. IMPRESSION: 1. Findings suggest a nonspecific colitis. Clinical correlation will be required. 2. Severe hepatic steatosis. 3. There is evidence of fluid overload including body wall edema, moderate pleural effusions, and a s mall volume of abdominopelvic ascites. 4. Retained cortical contrast is noted in the kidneys. This could be seen in the setting of acute lopez al injury and clinical correlation will be required. 5. There is no hyperdense fluid collection identified to suggest hematoma. 6. Additional findings as above. ACT 112: Negative or not required by law. Electronically signed by: Brennan Colón M.D. 11/11/2019 10:32 AM
[2019-11-11] MEDS ORDERED: SODIUM CHLORIDE 0.9% 1000ML 500 ML IV ONE (11:38)
[2019-11-11] MEDS: cefTRIAXone SODIUM 2,000 MG in DEXTROSE 5% 50 ML IV SCH (11:39)
[2019-11-11] MEDS ORDERED: CALCIUM GLUCONATE 10% 10 ML VIAL IV STA (12:24)
[2019-11-11] MEDS ORDERED: ALBUMIN 5% 250 ML IV STA (12:26)
[2019-11-11 12:56] LABS: Partial Thromboplastin Time 55.1 Seconds (21.0-31.0)
[2019-11-11] MEDS ORDERED: CALCIUM GLUCONATE 10% 2,000 MG in SODIUM CHLORIDE 0.9% 50 ML IV SCH (13:00)
--- NOTE | 2019-11-11 13:24 | Electrocardiogram Report ---
Test Reason : Blood Pressure : / mmHG Vent. Rate : 070 BPM Atrial Rate : 072 BPM P-R Int : 000 ms QRS Dur : 074 ms QT Int : 438 ms P-R-T Axes : 000 059 049 degrees QTc Int : 473 ms Poor data quality, interpretation may be adversely affected Probably NSR with sinus arrhythmia Low voltage QRS Nonspecific T wave abnormality Abnormal ECG When compared with ECG of 10-NOV-2019 11:54, No significant change was found Vent. rate has decreased BY 69 BPM Repeat tracing with better baseline Confirmed by Jonnathan Lopes ([id number]) on 11/11/2019 1:24:01 PM Referred By: [facility] Confirmed By:Jonnathan Lopes
[2019-11-11] MEDS ORDERED: POTASSIUM CHLORIDE 20 MEQ TABCR PO STA (13:27)
--- NOTE | 2019-11-11 15:53 | Hospitalist Progress Note ---
Date of Service November 11, 2019 Assessment & Plan (1) Hypotension: Manual BP in both arms read 70/40s. 1L IV bolus immediately begun. Ddx as follows: * Obstructive - Known PE & DVT; however, clot burden relatively small and TTE showed good EF with no indication of RV overload. No pericardial effusion. * Distributive - No indication of sepsis causing low BP. No indication of anaphylaxis. Cortisol was 10 (normal for time of day). * Cardiogenic - TTE showed EF 50-55%. Troponin negative. * Hypovolemic - No indication of RP bleed on CT a/p. Hgb stable. Lactate was normal at 1.5 and she maintained mental status and UOP throughout. In the end, thought to be hypovolemia from colonoscopy prep and being NPO. Her BP responded to fluids. This case was discussed with Dr. Krishnamurthy who felt that without signs of end-organ damage, the patient did not warrant ICU status. Her right leg BP was also slightly higher pointing toward difficult readings with arm blood pressures. (2) Pulmonary embolism: CTA chest on 11/09 shows bilateral pulmonary emboli. Doppler on 11/09 showed left popliteal DVT. - Heparin gtt started on admission; held temporarily due to concern for life- threatening bleed, then restarted the morning of 11/10. - Continue heparin gtt -> Transition to DOAC once stable and if neurology approves. (3) History of cerebrovascular accident: History of large left MCA stroke in 05/2019, treated at [facility]. Had hemorrhagic conversion of the stroke. Thought to be thrombotic. Hypercoagulable work-up was largely negative with some testing planned to be repeated in 12 weeks after discharge. Unclear if any of this was done. - Continue ASA, statin - Neurology consult to weigh in on anticoagulation given the hemorrhagic conversion (4) Sinus tachycardia: Patient has a known history of atrial tachycardia. Implanted loop recorder put in at [facility] during admission for CVA. - HR at [facility] was reportedly as high as 150, again possibly due to hypovolemia and PE. - Today generally normal. High as 115 in context of low BP above. Sometimes down in the 70 range, but then will bump up to 110 again. - Defer cardiology consult at this point given known issue which seems to be returning to normal with treatment of her other medical issues. (5) UTI (urinary tract infection): Patient has an E. coli UTI documented on 11/05. She had 3 days of cefdinir prior to admission. (Started on 11/05). - Continue ceftriaxone for now. (6) Dysphagia: Due to prior stroke. - Aspiration precautions were undertaken - DAM T[employer]ER consulted (7) GERD (gastroesophageal reflux disease): - Continue pantoprazole (8) Major depressive disorder: Pleasant affect today despite medical issues. - Continue fluoxetine, mirtazapine, and gabapentin I spent 75 minutes in the critical care of this patient's life-threatening hypotension including bedside assessment, ordering and interpreting tests, and discussing her care with specialty providers. Admission and Anticipated Discharge Date Admission Date: November 11, 2019 Subjective Called to patient's room by RN at approx. 8:30am for BP 72/60. Patient reports being slightly dizzy and tired, but otherwise denies focal complaints. Reports no fevers/chills, chest pain, shortness of breath, abdominal pain, nausea, or vomiting. Physical Exam Constitutional: WD/WN, vitals as above Eyes: EOM intact bilaterally; no conjunctival abnormality ENMT: external ear and nose normal, oropharynx normal Neck: trachea midline, no thyromegaly normal visual inspection Respiratory: normal respiratory effort, lungs clear to auscultation no respiratory distress Cardiovascular: RRR, no murmur, no edema Gastrointestinal (Abdomen): Inspection/Auscultation: abdomen normal to inspection; abdomen not distended Musculoskeletal: no cyanosis or clubbing, extremities motor strength 5/5 Skin: no rashes, warm and dry Neurologic: awake; + does not move all extremities (Right hemiplegia) Psychiatric: Orientation: alert, oriented to person and cooperative Results & Data Results & Data ([facility]) Vital Signs (Past 12 Hours) Vital Signs Temp Pulse Pulse Resp BP BP Pulse Ox 11/11/19 15:35 36.6 C 109 H 105 H 20 92/66 L 95 11/11/19 14:58 89/50 L 11/11/19 14:50 36.8 C 106 H 20 80/50 L 98 11/11/19 13:50 86/67 L 11/11/19 12:10 84/61 L 11/11/19 11:42 36.7 C 78 17 74/52 L 98 11/11/19 11:30 36.6 C 86 16 82/62 L 100 11/11/19 10:27 74 80/54 L 11/11/19 08:35 72/63 L 11/11/19 07:52 68 11/11/19 07:00 36.6 C 108 H 16 71/58 L 94 11/11/19 05:48 74 16 11/11/19 05:00 68 11/11/19 04:37 36.8 C 56 L 18 96/56 L 96 PG Care Time/CCT Total # of Minutes Spent Total Time Spent with Patient: Total time spent is greater than 50% in coordination of care (as documented) at patient's floor/unit and/or counseling patient: Critical Care Time: Yes Total Critical Care Time: 75 Coding Level of Care Code 37188 Subseq Hosp Care Lvl 3 Diagnoses Hypotension I95.9 Pulmonary embolism I26.99 History of cerebrovascular accident Z86.73 Sinus tachycardia R00.0 UTI (urinary tract infection) N30.00 Hematuria presence: without hematuria Urinary tract infection type: acute cystitis Dysphagia R13.10 GERD (gastroesophageal reflux disease) K21.9 Major depressive disorder F32.9 Additional Codes Critical Care Time - Critical Care Time: Yes ([id number]) (1) UTI (urinary tract infection) Hematuria presence: without hematuria Urinary tract infection type: acute cystitis Qualified Code(s): N30.00 - Acute cystitis without hematuria
[2019-11-11] MEDS ORDERED: VANCOMYCIN CONSULT ACTIVE PRN (18:29)
[2019-11-11] MEDS ORDERED: VANCOMYCIN HCL 2,000 MG in SODIUM CHLORIDE 0.9% 500 ML IV ONE (19:15)
[2019-11-11] MEDS: ATORVASTATIN 40 MG TAB PO SCH (20:18)
[2019-11-11] MEDS: GABAPENTIN 100 MG CAP PO SCH (20:18)
[2019-11-11] MEDS: MIRTAZAPINE TAB 15 MG TAB PO SCH (20:19)
[2019-11-11 22:37] LABS: Partial Thromboplastin Ratio > 5.0
[2019-11-11 22:38] LABS: Partial Thromboplastin Time > 139.0 Seconds (21.0-31.0)
[2019-11-12 01:00] LABS: Partial Thromboplastin Ratio > 5.0
[2019-11-12 01:03] LABS: Partial Thromboplastin Time > 139.0 Seconds (21.0-31.0)
[2019-11-12 02:24] LABS: Partial Thromboplastin Ratio 3.3
[2019-11-12 02:31] LABS: Partial Thromboplastin Time 93.4 Seconds (21.0-31.0)
[2019-11-12] MEDS: VANCOMYCIN HCL 1,000 MG in SODIUM CHLORIDE 0.9% 250 ML IV SCH ×3 (04:01→19:49)
[2019-11-12] MEDS: METOPROLOL TARTRATE 25 MG TAB PO SCH ×2 (05:32→08:06)
[2019-11-12 06:30] LABS: Hematocrit (blood only) 25.1 % (37-47); Hemoglobin 8.4 g/dL (12.0-16.0); Mean Corpuscular Hemoglobin 28.4 pg (25-34); Mean Corpuscular Hgb Conc 33.5 g/dL (32-36); Mean Corpuscular Volume 84.8 fL (80-100); Mean Platelet Volume 9.2 fL (7.4-10.4); Platelet Count 250 K/uL (130-400); RDW Coefficient of Variation 16.6 % (11.5-14.5); RDW Standard Deviation 51.6 fL (36.4-46.3); Red Blood Count 2.96 M/uL (4.2-5.4); White Blood Count 4.05 K/uL (4.8-10.8)
[2019-11-12 06:48] LABS: Albumin Level 0.8 gm/dl (3.4-5.0); BUN Creatinine Ratio 17.1 (10-20); Calcium 6.7 mg/dl (8.5-10.1); Creatinine Clr Calc Pharmacy 148.3 ml/min; Est GFR (African American) 129.9; Est GFR (Non-African American) 112.1; Magnesium 1.8 mg/dl (1.8-2.4); Potassium 3.3 mmol/L (3.5-5.1)
[2019-11-12 06:51] LABS: Albumin Globulin Ratio 0.3 (0.9-2); Bilirubin,Total 0.3 mg/dl (0.2-1); Globulin 2.5 gm/dl (2.5-4.0); Phosphorus 2.5 mg/dl (2.5-4.9); Total Protein 3.3 gm/dl (6.4-8.2)
[2019-11-12] MEDS: FLUOXETINE HCL 20 MG CAP PO SCH (08:06)
[2019-11-12] MEDS: LACTOBACILLUS ACIDOPHILUS (FLORANEX) TAB PO SCH (08:07)
[2019-11-12] MEDS: PANTOprazole 40 MG TAB PO SCH (08:07)
[2019-11-12] MEDS: MULTIVITAMIN TAB PO SCH (08:08)
[2019-11-12] MEDS: THIAMINE HCL 100 MG TAB PO SCH (08:08)
[2019-11-12] MEDS: ASPIRIN 81 MG ECTAB PO SCH (08:08)
[2019-11-12] MEDS: SACCHAROMYCES BOULARDII 250 MG CAP PO SCH ×2 (08:08→19:41)
[2019-11-12 09:26] LABS: Partial Thromboplastin Ratio > 5.0
[2019-11-12 09:28] LABS: Partial Thromboplastin Time > 139.0 Seconds (21.0-31.0)
--- NOTE | 2019-11-12 09:51 | Neurology Consultation ---
Date of Consultation November 12, 2019 Assessment & Plan (1) Pulmonary embolism: Ileana Churchill is a 49 yo woman w/ PMH of prior L MCA stroke c/b hemorrhagic conversion with residual aphasia and right sided weakness, Crohn's disease, GERD, urinary retention, h/o VT, and baseline anemia who initially p/t [facility] with chest pain and tachycardia, found to have bilateral PEs a/w LLE DVT. # H/o L MCA stroke c/b hemorrhagic conversion with residual aphasia/right sided weakness: unfortunately, now has a DVT/bilateral PE and needs to be anticoagulated. She is greater than 3 months outside of her hemorrhagic conversion and the PE definitely requires AC. - continue with heparin high risk gtt - would plan on transitioning to warfarin instead of DOAC in case there is a recurrent ICH as that is easier to reverse if needed - would also have her complete outpatient cancer screening (mammo, gynecologic cancers, colonoscopy) as her stroke and now DVT/PE without a clear cause would be c/f underlying cancer as a trigger - would hold home BP meds given her ongoing hypotension Thank you for this interesting consult. Plan of care discussed with primary team. Please call or text with questions. (2) History of cerebrovascular accident: (3) Hypoalbuminemia due to protein-calorie malnutrition: History of Present Illness Attending Physician: Kyrie Cordero History of Present Illness Ileana Churchill is a 49 yo woman w/ PMH of prior L MCA stroke c/b hemorrhagic conversion with residual aphasia and right sided weakness, Crohn's disease, GERD, urinary retention, h/o VT, and baseline anemia who initially p/t [facility] with chest pain and tachycardia, found to have bilateral PEs a/w LLE DVT. Neurology consulted due to need for anticoagulation in the setting of prior hemorrhagic conversion of large MCA stroke. On examination today, she reports that she is at her baseline in terms of neurologic deficits (aphasia, right sided weakness). Denies any headache, new numbness, tingling or weakness. Review of labs shows WBC 4.05, Hb 9 (down from 10.4), Plts 250, Na 142, K 33, Cl 115, Cr 0.5, glucose 70, calcium 6.7 (low), AST elevated at 58, Alk Phos 138, ALT WNL, albumin low at 0.8, COVID negative. Independently reviewed CT head from 11/06/2019 shows a large area of encephalomalacia in the superior division of the left MCA, small chronic right frontal infarct, no signs of acute hemorrhagic at that time. CTA H&N shows diminutive vessels in the left MCA territory but otherwise no LVO, high grade stenosis or aneurysm noted. She was started on heparin high risk gtt for new PE/DVT on 11/11/19. Repeat CTH on 11/12/19 stable with no new hemorrhage or infarct noted. She is reportedly being transitioned to lovenox temporarily for over-shooting the PTT values. Allergies Allergy/AdvReac Type Severity Reaction Status Date / Time Sulfa (Sulfonamide Allergy Intermediate RASH TO Verified 11/10/19 12:36 Antibiotics) FACE Home Medications Home Medications Medication Instructions Recorded Confirmed Type Calmoseptine 1 applic TOPICAL TID PRN 11/02/19 11/10/19 History Fleet Enema 118 ml MA DAILY PRN 11/02/19 11/10/19 History Lactobacillus acidoph-L.bulgar 1 tab PO QDL 11/02/19 11/10/19 History [Floranex] acetaminophen [Tylenol] 325 mg PO QID PRN 11/02/19 11/10/19 History aspirin 81 mg PO QAM 11/02/19 11/10/19 History atorvastatin 40 mg PO PM 11/02/19 11/10/19 History bisacodyl 5 mg MA BID PRN 11/02/19 11/10/19 History bisacodyl 20 mg PO HS 11/02/19 11/10/19 History fluoxetine 20 mg PO QAM 11/02/19 11/10/19 History gabapentin 100 mg PO PM 11/02/19 11/10/19 History loperamide 2 mg PO TID 11/02/19 11/10/19 History magnesium hydroxide [Milk Of 30 ml PO DAILY PRN 11/02/19 11/10/19 History Magnesia Concentrated] mirtazapine 15 mg PO PM 11/02/19 11/10/19 History ondansetron HCl [Zofran] 4 mg PO Q6H PRN 11/02/19 11/10/19 History pantoprazole 20 mg PO QAM 11/02/19 11/10/19 History polyethylene glycol 3350 [Miralax] 17 g PO ONCE 11/02/19 11/10/19 History thiamine HCl (vitamin B1) 100 mg PO QAM 11/02/19 11/10/19 History Saccharomyces boulardii [Florastor] 250 mg PO BID #20 cap 11/06/19 11/10/19 Rx cefdinir 300 mg PO BID 7 Days #14 cap 11/06/19 11/10/19 Rx enoxaparin 40 mg SUBCUT DAILY 11/06/19 11/10/19 History metoprolol tartrate 12.5 mg PO BID 11/06/19 11/10/19 History multivitamin 1 tab PO DAILY 11/06/19 11/10/19 History Patient History Medical History Aphasia Cerebral infarct Constipation Crohn's disease Dysphagia GERD (gastroesophageal reflux disease) Hemiplegia and hemiparesis following cerebral infarction affecting right dominant side Iron deficiency anemia Major depressive disorder Non-traumatic intracranial hemorrhage skilled nursing resident [facility] 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 Unspecified severe protein-calorie malnutrition Ventricular tachycardia Surgical History Presence of other cardiac implants and grafts Social History Smoking Status: Former smoker Smoking End Date: years ago; Hx Alcohol Use: No Hx Substance Use: No Preferred Language: Vietnamese Communication Ability: Effective Emissions Engineer Required: No Beliefs That Will Affect Care: None Current Living Situation: [facility] Current Living Situation Comment: [facility] resident Other Information That Helps Us Care for You: No Feels Safe at Home: Yes Safety Concerns: Feels Safe At This Time Review of Systems Review of Systems: Difficult to assess 2/2 aphasia but did appear to appropriately answer questions when (see HPI for full 10 point ROS) Exam (Neuro) Physical Exam: General Exam: GEN: NAD, sitting in bed. HEENT: No conjunctival injection, no rhinorrhea. CV: RRR, no peripheral edema PULM: Nonlabored respirations on room air. Neuro Exam: MS: Awake and Alert. Oriented to person, place, and date. Speech fluent and appropriate without dysarthria or paraphasic errors. Language intact including naming, comprehension, repetition. Cognition and memory grossly intact. Attention intact. No neglect. CN: Slight right eye, right visual field cut. No extinction to double simultaneous stimuli. No optic disc edema on fundoscopic exam. PERRLA OU. EOMI without nystagmus. Facial sensation intact to LT. R FP. Hearing intact to conversation. Uvula midline with symmetric palatal elevation. Shoulder shrug normal on the left. Tongue midline. MOTOR: Normal bulk and tone. No pronator drift. LUE strength 5/5 at deltoids, b iceps, triceps, wrist flexors and extensors, and hand grasp. RUE flaccid with increased tone (early spasticity noted). LLE strength 5/5 at iliopsoas, hamstrings, quadriceps, tibialis anterior, and gastrocnemius; RLE strength 5-/5 at iliopsoas/hamstrings/quadriceps/TA/gastroc. REFLEXES: 2+ at L biceps, triceps, brachioradialis, 1+ L patella and trace Achilles; 2+ and brisk in R biceps/triceps/brachioradialis/patella, 2+ R Achilles. Flexor plantar responses in left, right toe mute. SENSORY: Intact to LT without extinction to double simultaneous stimuli. Vibration intact throughout. COORDINATION: No dysmetria or ataxia on [id number] in the LUE. Normal Rick in left hand. GAIT: deferred given physical status Results & Data ([facility]) Vital Signs (Past 12 Hours) Vital Signs Temp Pulse Pulse Resp BP Pulse Ox 11/12/19 08:25 36.8 C 126 H 20 95/63 L 98 11/12/19 03:05 36.6 C 73 20 89/61 L 96 11/11/19 23:31 36.8 C 101 H 20 86/61 L 96 11/11/19 23:27 79 PG Care Time/CCT Total # of Minutes Spent Total Time Spent with Patient: Total time spent is greater than 50% in coordination of care (as documented) at patient's floor/unit and/or counseling patient: Coding Level of Care Code 63003 Initial Inpt Care Lvl 3 Diagnoses Pulmonary embolism I26.99 History of cerebrovascular accident Z86.73 Hypoalbuminemia due to protein-calorie malnutrition E88.09; E46
--- NOTE | 2019-11-12 10:06 | CT Scan Report ---
CT head/brain wo con CLINICAL HISTORY: Stroke. Evaluate for hemorrhage. COMPARISON STUDY: 11/05/1929 TECHNIQUE: Axial CT of the brain is performed from the vertex to the skull base. IV contrast was not administered for this examination. A dose lowering technique was utilized adhering to the principles of ALARA. CT DOSE: 720.23 mGy.cm FINDINGS: No intra or extra-axial mass lesions are visualized. There is no CT evidence of acute cortical infarc tion. There is no evidence of midline shift. There is no acute hemorrhage. No calvarial fractures ar e visualized. There is continued evidence for extensive left MCA distribution infarct. There is an old small right frontal lobe infarct. There is no evidence of pathologic ventricular dilatation. There is no evidence of acute sinusitis IMPRESSION: 1. No significant change in the old large left MCA distribution infarct an old right frontal lobe inf arct 2. No evidence of acute hemorrhage ACT 112: Negative or not required by law. Electronically signed by: Elfego Conn M.D. 11/12/2019 10:05 AM
[2019-11-12 10:17] LABS: Partial Thromboplastin Ratio 1.9
[2019-11-12 10:20] LABS: Partial Thromboplastin Time 52.1 Seconds (21.0-31.0)
--- NOTE | 2019-11-12 10:27 | Electrocardiogram Report ---
Test Reason : Blood Pressure : / mmHG Vent. Rate : 077 BPM Atrial Rate : 241 BPM P-R Int : 000 ms QRS Dur : 076 ms QT Int : 404 ms P-R-T Axes : 000 072 058 degrees QTc Int : 457 ms Normal sinus rhythm Low voltage QRS Septal infarct , age undetermined Nonspecific T wave abnormality Abnormal ECG When compared with ECG of 11-NOV-2019 07:02, No significant change was found Confirmed by Jonnathan Lopes ([id number]) on 11/12/2019 10:27:07 AM Referred By: [facility] Confirmed By:Jonnathan Lopes
[2019-11-12] MEDS ORDERED: Nursing to Pharmacy Communication SCH (10:30)
[2019-11-12] MEDS: cefTRIAXone SODIUM 2,000 MG in DEXTROSE 5% 50 ML IV SCH (11:15)
[2019-11-12] MEDS: ENOXAPARIN 80 MG/0.8 ML SYR SQ SCH ×2 (11:18→19:40)
[2019-11-12 11:52] LABS: Hematocrit (blood only) 27.1 % (37-47)
--- NOTE | 2019-11-12 12:44 | Pharmacy Report ---
Pharmacy Abx Initial Consult - Date of Service November 12, 2019 - Pharmacy Dosing Scope Date of Consult: 11/11/19 Consultation requested by: Dr. Villalpando Pharmacy is consulted to initiate Vancomycin IV dosing therapy, order appropriate labs and adjust drug dose/frequency. - Subjective The patient is a 49 year old F admitted on 11/11/19 11:38. - Objective Height: 5 ft 7 in Weight: 84 kg Vital Signs (Past 12hrs): Vital Signs Temp Pulse Resp BP Pulse Ox 11/12/19 12:20 36.8 C 69 17 87/54 L 99 11/12/19 08:25 36.8 C 126 H 20 95/63 L 98 11/12/19 03:05 36.6 C 73 20 89/61 L 96 Lab Results (24hrs): Laboratory Tests (24 Hours) 11/12/19 11/12/19 11/11/19 06:21 06:21 20:57 WBC 4.05 L Creatinine 0.50 L Est Cr Clr Drug Dosing 148.3 Procalcitonin 0.22 Micro Results: 11/12/19 08:44 Aerobic Blood Culture - Pending Blood Anaerobic Blood Culture - Pending 11/12/19 06:12 Aerobic Blood Culture - Pending Blood Anaerobic Blood Culture - Pending 11/10/19 13:17 Anaerobic Blood Culture - Final Blood - Risk Factors for Resistance * Resident in a halfway or extended-care facility * Antimicrobial use within the last 90 days- Cefdinir (Rx on 11/06/19) for E coli UTI had for 3 days before admission. - Assessment & Plan Assessment 49 year old F, halfway resident, admitted with UTI and bacteremia (blood cxs 1/2 growing gram positive bacilli). Repeat blood cxs drawn today. Vancomycin ordered yesterday. Procalcitonin = 0.22 yesterday. Low likelihood of bacteremia but will await blood culture results. Patient is also on Rocephin daily. Plan Vancomycin IV * Estimated PK Parameters: Vd 0.6 L/kg, [place]iston 0.094 hr-1, t1/2 7.4 hr * Loading dose: 2000 mg (25 mg/kg) * Maintenance dose: 1000 mg IV (13 mg/kg) every 8 hours * Goal trough level for bacteremia: 15 to 20 mcg/mL * Trough level ordered for 11/13/19 before 4th maintenance dose at 0400. Pharmacy will continue to follow and will adjust dose/frequency as necessary. Thank you.
[2019-11-12 16:00] LABS: Hematocrit (blood only) 28.7 % (37-47); Hemoglobin 9.3 g/dL (12.0-16.0)
[2019-11-12] MEDS: GABAPENTIN 100 MG CAP PO SCH (19:41)
[2019-11-12] MEDS: MIRTAZAPINE TAB 15 MG TAB PO SCH (19:42)
[2019-11-12] MEDS: ATORVASTATIN 40 MG TAB PO SCH (19:42)
[2019-11-12] MEDS: POTASSIUM CHLORIDE 20 MEQ TABCR PO SCH (19:42)
[2019-11-12] MEDS: METOPROLOL SUCC 25MG EXT REL TAB PO SCH (19:43)
[2019-11-12 19:56] LABS: Hematocrit (blood only) 29.7 % (37-47); Hemoglobin 9.5 g/dL (12.0-16.0)
--- NOTE | 2019-11-12 22:05 | Hospitalist Progress Note ---
Date of Service November 12, 2019 Assessment & Plan (1) Hypotension: Manual BP in both arms read 70/40s. 1L IV bolus immediately begun. Ddx as follows: * Obstructive - Known PE & DVT; however, clot burden relatively small and TTE showed good EF with no indication of RV overload. No pericardial effusion. * Distributive - No indication of sepsis causing low BP. No indication of anaphylaxis. Cortisol was 10 (normal for time of day). * Cardiogenic - TTE showed EF 50-55%. Troponin negative. * Hypovolemic - No indication of RP bleed on CT a/p. Hgb stable. On day of 11/10 Lactate was normal at 1.5 and she maintained mental status and UOP throughout. In the end, thought to be hypovolemia from colonoscopy prep and being NPO. Her BP responded to fluids. This case was discussed with Dr. Krishnamurthy who felt that without signs of end-organ damage, the patient did not warrant ICU status. Her right leg BP was also slightly higher pointing toward difficult readings with arm blood pressures. On day of 11/11: BP is slightly better, will continue to monitor, due to atrial tachycardia will add long acting metoprolol which should help control heart rate and may have decrease effect on BP. (2) Pulmonary embolism: CTA chest on 11/09 shows bilateral pulmonary emboli. Doppler on 11/09 showed left popliteal DVT. - Heparin gtt started on admission; held temporarily due to concern for life- threatening bleed, then restarted the morning of 11/10. - Patient will need to be transitioned to likely warfarin. will start warfarin 10 mg PO in AM. Will also transition heparin to lovenox as her PTT has remained elevated. (3) History of cerebrovascular accident: History of large left MCA stroke in 05/2019, treated at [facility]. Had hemorrhagic conversion of the stroke. Thought to be thrombotic. Hypercoagulable work-up was largely negative with some testing planned to be repeated in 12 weeks after discharge. Unclear if any of this was done. - Continue ASA, statin - Neurology consult to weigh in on anticoagulation given the hemorrhagic conversion (4) Sinus tachycardia: Patient has a known history of atrial tachycardia. Implanted loop recorder put in at [place] during admission for CVA. - HR at [facility] was reportedly as high as 150, again possibly due to hypovolemia and PE. - Today generally normal. High as 115 in context of low BP above. Sometimes down in the 70 range, but then will bump up to 110 again. - Defer cardiology consult at this point given known issue which seems to be returning to normal with treatment of her other medical issues. Better controlled, will place on toprol XL 25 mg PO PM (5) UTI (urinary tract infection): Patient has an E. coli UTI documented on 11/05. She had 3 days of cefdinir prior to admission. (Started on 11/05). - Continue ceftriaxone for now. (6) Dysphagia: Due to prior stroke. - Aspiration precautions were undertaken - BANK MANAGER consulted (7) GERD (gastroesophageal reflux disease): - Continue pantoprazole (8) Major depressive disorder: Pleasant affect today despite medical issues. - Continue fluoxetine, mirtazapine, and gabapentin Admission and Anticipated Discharge Date Admission Date: November 11, 2019 Subjective 49 yo female reports reports no new symptoms today. As per her monitor, she was tachycardic today. She improved with metoprolol Review of Systems Review of Systems: Mild distress and fatigue no headache, blurry or double vision no speech or swallowing issues no chest pain, pressure or palpitations no shortness of breath, cough or wheezes no abdominal pain, nausea or vomiting, diarrhea or constipation no dysuria, hematuria or frequency no focal joint pain or swelling no back pain, CVA tenderness or radicular pain no bruising, bleeding or rashes no focal signs of weakness or numbness or altered sensation no complaints or anxiety or depression. Physical Exam Physical Exam: Constitutional: WD/WN, vitals as above Eyes: EOM intact bilaterally; no conjunctival abnormality ENMT: external ear and nose normal, oropharynx normal Neck: trachea midline, no thyromegaly normal visual inspection Respiratory: normal respiratory effort, lungs clear to auscultation no respiratory distress Cardiovascular: RRR, no murmur, no edema Gastrointestinal (Abdomen): Inspection/Auscultation: abdomen normal to inspection; abdomen not distended Musculoskeletal: no cyanosis or clubbing, extremities motor strength 5/5 Skin: no rashes, warm and dry Neurologic: awake; + does not move all extremities (Right hemiplegia) Psychiatric: Orientation: alert, oriented to person and cooperative Results & Data Results & Data ([facility]) Vital Signs (Past 12 Hours) Vital Signs Temp Pulse Resp BP Pulse Ox 11/12/19 19:02 36.7 C 80 18 90/58 L 96 11/12/19 15:13 36.4 C L 81 18 88/54 L 96 11/12/19 12:20 36.8 C 69 17 87/54 L 99 PG Care Time/CCT Total # of Minutes Spent Total Time Spent with Patient: Total time spent is greater than 50% in coordination of care (as documented) at patient's floor/unit and/or counseling patient: Coding Level of Care Code 82784 Subseq Hosp Care Lvl 3 Diagnoses Hypotension I95.9 Pulmonary embolism I26.99 History of cerebrovascular accident Z86.73 Sinus tachycardia R00.0 UTI (urinary tract infection) N30.00 Hematuria presence: without hematuria Urinary tract infection type: acute cystitis Dysphagia R13.10 GERD (gastroesophageal reflux disease) K21.9 Major depressive disorder F32.9 Time Spent (min) 35 (1) UTI (urinary tract infection) Hematuria presence: without hematuria Urinary tract infection type: acute cystitis Qualified Code(s): N30.00 - Acute cystitis without hematuria
[2019-11-13 00:09] LABS: Hematocrit (blood only) 27.1 % (37-47); Hemoglobin 8.6 g/dL (12.0-16.0)
[2019-11-13] MEDS: VANCOMYCIN HCL 1,000 MG in SODIUM CHLORIDE 0.9% 250 ML IV SCH (03:25)
[2019-11-13] MEDS ORDERED: VANCOMYCIN TROUGH ONE (03:30)
[2019-11-13 06:04] LABS: BUN Creatinine Ratio 16.2 (10-20); Calcium 6.6 mg/dl (8.5-10.1); Creatinine Clr Calc Pharmacy 157.7 ml/min; Est GFR (African American) 132.6; Est GFR (Non-African American) 114.4; Potassium 3.9 mmol/L (3.5-5.1)
[2019-11-13 06:20] LABS: Hematocrit (blood only) 25.2 % (37-47); Hemoglobin 7.9 g/dL (12.0-16.0); Mean Corpuscular Hemoglobin 27.1 pg (25-34); Mean Corpuscular Hgb Conc 31.3 g/dL (32-36); Mean Corpuscular Volume 86.3 fL (80-100); Platelet Count 102 K/uL (130-400); Platelet Estimate Decreased (Normal); Red Blood Count 2.92 M/uL (4.2-5.4)
[2019-11-13] MEDS: POTASSIUM CHLORIDE 20 MEQ TABCR PO SCH ×2 (07:45→20:02)
[2019-11-13] MEDS: SACCHAROMYCES BOULARDII 250 MG CAP PO SCH ×2 (07:46→20:01)
[2019-11-13] MEDS: THIAMINE HCL 100 MG TAB PO SCH (07:46)
[2019-11-13] MEDS: ENOXAPARIN 80 MG/0.8 ML SYR SQ SCH ×2 (07:46→19:59)
[2019-11-13] MEDS: FLUOXETINE HCL 20 MG CAP PO SCH (07:46)
[2019-11-13] MEDS: ASPIRIN 81 MG ECTAB PO SCH (07:46)
[2019-11-13] MEDS: PANTOprazole 40 MG TAB PO SCH (07:46)
[2019-11-13] MEDS: MULTIVITAMIN TAB PO SCH (07:46)
[2019-11-13] MEDS ORDERED: WARFARIN SOD 5 MG TAB PO ONE (09:07)
[2019-11-13 10:16] LABS: INR 1.4 (0.9-1.1); Prothrombin Time 14.6 Seconds (9.0-12.0)
[2019-11-13 10:33] LABS: Ferritin 343.1 ng/ml (8-388)
[2019-11-13] MEDS: cefTRIAXone SODIUM 2,000 MG in DEXTROSE 5% 50 ML IV SCH (12:19)
[2019-11-13] MEDS: LACTOBACILLUS ACIDOPHILUS (FLORANEX) TAB PO SCH (12:19)
--- NOTE | 2019-11-13 15:04 | Pharmacy Report ---
Pharmacy Abx Dose Short Note - Date of Service November 13, 2019 - Assessment & Plan Assessment 49 year old F receiving vancomycin and ceftriaxone IV empirically for possible sepsis (unknown source) Patient is hypotensive, 1 of 2 blood cultures growing corynebacterium species, follow-up blood cultures show no growth at 24 hours. Patient has been afebrile for duration of admission with no leukocytosis. Questionable need for continued vancomycin at this time. Day # 3 of antimicrobial therapy. Plan Vancomycin * Trough level of 32.6 mcg/mL with recheck of 34.1 is supratherapeutic - this is very surprising given rather conservative dosing of vancomycin * Suspect pre-renal JAIME as patient has been hypotensive. SCr has been stable, but urine output documented as minimal and concentrated overnight. Will monitor. * Will hold vancomycin until random vanco level is below 20 mcg/mL * Recheck random vanco level tomorrow morning * Goal trough level for sepsis : 15 to 20 mcg/mL Ceftriaxone * 2 g IV q24h for continued treatment of outpatient UTI Pharmacy will continue to follow and will adjust dose/frequency as necessary. Thank you.
[2019-11-13] MEDS: MIRTAZAPINE TAB 15 MG TAB PO SCH (20:00)
[2019-11-13] MEDS: GABAPENTIN 100 MG CAP PO SCH (20:00)
[2019-11-13] MEDS: ATORVASTATIN 40 MG TAB PO SCH (20:02)
[2019-11-13] MEDS: METOPROLOL SUCC 25MG EXT REL TAB PO SCH (20:04)
[2019-11-13] MEDS: ONDANSETRON INJ 2 MG/ML 2 ML VIAL IV PRN (20:24)
--- NOTE | 2019-11-13 22:10 | Hospitalist Progress Note ---
Date of Service November 13, 2019 Assessment & Plan (1) Hypotension: Manual BP in both arms read 70/40s. 1L IV bolus immediately begun. Ddx as follows: * Obstructive - Known PE & DVT; however, clot burden relatively small and TTE showed good EF with no indication of RV overload. No pericardial effusion. * Distributive - No indication of sepsis causing low BP. No indication of anaphylaxis. Cortisol was 10 (normal for time of day). * Cardiogenic - TTE showed EF 50-55%. Troponin negative. * Hypovolemic - No indication of RP bleed on CT a/p. Hgb stable. On day of 11/10 Lactate was normal at 1.5 and she maintained mental status and UOP throughout. In the end, thought to be hypovolemia from colonoscopy prep and being NPO. Her BP responded to fluids. This case was discussed with Dr. Krishnamurthy who felt that without signs of end-organ damage, the patient did not warrant ICU status. Her right leg BP was also slightly higher pointing toward difficult readings with arm blood pressures. On day of 11/11: BP is slightly better, will continue to monitor, due to atrial tachycardia will add long acting metoprolol which should help control heart rate and may have decrease effect on BP. on 11/12: BP is borderline. HR is controlled, will continue warfarin. (2) Pulmonary embolism: CTA chest on 11/09 shows bilateral pulmonary emboli. Doppler on 11/09 showed left popliteal DVT. - Heparin gtt started on admission; held temporarily due to concern for life-threatening bleed, then restarted the morning of 11/10. - Patient will need to be transitioned to likely warfarin. will start warfarin 10 mg PO in AM. Will also transition heparin to lovenox as her PTT has remained elevated. (3) History of cerebrovascular accident: History of large left MCA stroke in 05/2019, treated at [facility]. Had hemorrhagic conversion of the stroke. Thought to be thrombotic. Hypercoagulable work-up was largely negative with some testing planned to be repeated in 12 weeks after discharge. Unclear if any of this was done. - Continue ASA, statin - Neurology consult to weigh in on anticoagulation given the hemorrhagic conversion (4) Sinus tachycardia: Patient has a known history of atrial tachycardia. Implanted loop recorder put in at [place] during admission for CVA. - HR at [facility] was reportedly as high as 150, again possibly due to hypovolemia and PE. - Today generally normal. High as 115 in context of low BP above. Sometimes down in the 70 range, but then will bump up to 110 again. - Defer cardiology consult at this point given known issue which seems to be returning to normal with treatment of her other medical issues. Better controlled, will place on toprol XL 25 mg PO PM (5) UTI (urinary tract infection): Patient has an E. coli UTI documented on 11/05. She had 3 days of cefdinir prior to admission. (Started on 11/05). - Continue ceftriaxone for now. (6) Dysphagia: Due to prior stroke. - Aspiration precautions were undertaken - [employer] consulted (7) GERD (gastroesophageal reflux disease): - Continue pantoprazole (8) Major depressive disorder: Pleasant affect today despite medical issues. - Continue fluoxetine, mirtazapine, and gabapentin Admission and Anticipated Discharge Date Admission Date: November 11, 2019 Subjective 49 yo f, reports no new symptoms. Review of Systems Review of Systems: All systems reviewed & are unremarkable except as noted in HPI & below Physical Exam Physical Exam: Constitutional: WD/WN, vitals as above Eyes: EOM intact bilaterally; no conjunctival abnormality ENMT: external ear and nose normal, oropharynx normal Neck: trachea midline, no thyromegaly normal visual inspection Respiratory: normal respiratory effort, lungs clear to auscultation no respiratory distress Cardiovascular: RRR, no murmur, no edema Gastrointestinal (Abdomen): Inspection/Auscultation: abdomen normal to inspection; abdomen not distended Musculoskeletal: no cyanosis or clubbing, extremities motor strength 5/5 Skin: no rashes, warm and dry Neurologic: awake; + does not move all extremities (Right hemiplegia) Psychiatric: Orientation: alert, oriented to person and cooperative Results & Data Results & Data ([facility]) Vital Signs (Past 12 Hours) Vital Signs Temp Pulse Pulse Resp BP Pulse Ox 11/13/19 20:10 37.1 C 70 18 92/60 L 93 11/13/19 16:00 85 11/13/19 15:41 37 C 83 18 89/59 L 92 11/13/19 11:48 36.5 C 82 18 105/71 99 PG Care Time/CCT Total # of Minutes Spent Total Time Spent with Patient: Total time spent is greater than 50% in coordination of care (as documented) at patient's floor/unit and/or counseling patient: Coding Level of Care Code 39863 Subseq Hosp Care Lvl 2 Diagnoses Hypotension I95.9 Pulmonary embolism I26.99 History of cerebrovascular accident Z86.73 Sinus tachycardia R00.0 UTI (urinary tract infection) N30.00 Hematuria presence: without hematuria Urinary tract infection type: acute cystitis Dysphagia R13.10 GERD (gastroesophageal reflux disease) K21.9 Major depressive disorder F32.9 (1) UTI (urinary tract infection) Hematuria presence: without hematuria Urinary tract infection type: acute cystitis Qualified Code(s): N30.00 - Acute cystitis without hematuria
[2019-11-14 06:16] LABS: Hematocrit (blood only) 26.5 % (37-47); Hemoglobin 8.7 g/dL (12.0-16.0); Mean Corpuscular Hemoglobin 28.4 pg (25-34); Mean Corpuscular Hgb Conc 32.8 g/dL (32-36); Mean Corpuscular Volume 86.6 fL (80-100); Mean Platelet Volume 10.3 fL (7.4-10.4); Platelet Count 281 K/uL (130-400); RDW Coefficient of Variation 16.6 % (11.5-14.5); RDW Standard Deviation 52.9 fL (36.4-46.3); Red Blood Count 3.06 M/uL (4.2-5.4); White Blood Count 4.93 K/uL (4.8-10.8)
[2019-11-14 06:20] LABS: INR 2.4 (0.9-1.1); Prothrombin Time 23.9 Seconds (9.0-12.0)
[2019-11-14 06:46] LABS: BUN Creatinine Ratio 17.2 (10-20); Calcium 6.8 mg/dl (8.5-10.1); Creatinine Clr Calc Pharmacy 146.2 ml/min; Est GFR (African American) 129.9; Est GFR (Non-African American) 112.1; Potassium 4.1 mmol/L (3.5-5.1)
[2019-11-14] MEDS: POTASSIUM CHLORIDE 20 MEQ TABCR PO SCH ×3 (07:47→22:08)
[2019-11-14] MEDS: FLUOXETINE HCL 20 MG CAP PO SCH (07:47)
[2019-11-14] MEDS: SACCHAROMYCES BOULARDII 250 MG CAP PO SCH ×3 (07:47→22:08)
[2019-11-14] MEDS: PANTOprazole 40 MG TAB PO SCH (07:47)
[2019-11-14] MEDS: ASPIRIN 81 MG ECTAB PO SCH (07:47)
[2019-11-14] MEDS: MULTIVITAMIN TAB PO SCH (07:47)
[2019-11-14] MEDS: ENOXAPARIN 80 MG/0.8 ML SYR SQ SCH ×2 (07:48→21:40)
[2019-11-14] MEDS: THIAMINE HCL 100 MG TAB PO SCH (07:50)
[2019-11-14] MEDS: LACTOBACILLUS ACIDOPHILUS (FLORANEX) TAB PO SCH (12:03)
--- NOTE | 2019-11-14 12:11 | Gastrointestinal Consultation ---
Date of Consultation November 14, 2019 Assessment & Plan (1) Hepatic steatosis: It is unlikely that her coagulopathy is caused by cirrhosis as not seen on CT, platelets are normal and EGD w/o evidence of portal HTN. 1. Recommend OP fibroscan to document fibrosis if present thought pt does not believe that she would be able to arrange a ride to [place] and this technology is not available in [place]. 2. A review or [facility] records shows that she has been seen by Romain Carrington hemato logy/oncology for thromobocytosis a few months ago. Consider hematology follow up. 3. Consider nutritional cause of elevated INR. Consider Vit K 5mg/day for a week. If improves INR, then likely caused by nutritional issues. Present on Admission?: Yes Supervising Physician Co-Signing Physician Notes I saw and evaluated the patient. We were consulted for evaluation of a slight elevation of the patient's baseline INR to 1.4. She has no known history of liver disease and has been seen in the past by Dr. Carrera had arranged a recent upper endoscopy and colonoscopy. The upper endoscopy was notable for no evidence of portal gastropathy or varices. The patient's colonoscopy was not completed as the bowel preparation was poor. The patient does have a history of an aphasia as result of a prior stroke involving her MCA over 6 months ago. The patient does not recall any history of liver disease but does have imaging which does show steatosis of the liver. Physical examination No scleral icterus Patient with an obvious aphasia, mobility issue noted No spider nevi noted Impression: Patient with a question of a slight elevation of her INR without any obvious evidence of liver disease as her labs are within normal limits and she has no thrombocytopenia. It would certainly be reasonable to do an outpatient evaluation with a fiber scan to see if there is significant scarring within the liver as she does have steatosis. Regard to the elevated INR I would suggest an evaluation by hematology as they may be more good to find an etiology for your service. Please call with any questions or concerns patient to follow-up with Dr. Carrera as an outpatient History of Present Illness Reason for Consultation: INR 1.4 ? cirrhosis Requesting Physician: Dr. Cordero Attending Physician: Kyrie Cordero History of Present Illness Ms. Ileana Churchill is a 49 yr old female with a hx of CVA, GERD, dysphagia, hyperlipidemia and Crohn's who was admitted on 11/09 for tachycardia. She has had excessive bruising and GI is consulted with the question - is her elevated INR secondary to cirrhosis. CT on arrival with IV contrast suggested severe steatosis but no mention of cirrhosis. Platelets are normal (typically decreased in cirrhosis) and she had a recent EGD w/o any evidence of portal HTN or cirrhosis. Regarding risks for cirrhosis, pt does not have a family hx of liver disease or DM. She does not have a personal hx of increased alcohol intake or obesity of DM. She also recently underwent colonoscopy for anemia but not completed due to poor prep. She follows with Dr. Carrera who saw her most recently for Crohn's, mentioned her coagulopathy as w/o a clear cause. Allergies Allergy/AdvReac Type Severity Reaction Status Date / Time Sulfa (Sulfonamide Allergy Intermediate RASH TO Verified 11/10/19 12:36 Antibiotics) FACE Home Medications Home Medications Medication Instructions Recorded Confirmed Type Calmoseptine 1 applic TOPICAL TID PRN 11/02/19 11/10/19 History Fleet Enema 118 ml SC DAILY PRN 11/02/19 11/10/19 History Lactobacillus acidoph-L.bulgar 1 tab PO QDL 11/02/19 11/10/19 History [Floranex] acetaminophen [Tylenol] 325 mg PO QID PRN 11/02/19 11/10/19 History aspirin 81 mg PO QAM 11/02/19 11/10/19 History atorvastatin 40 mg PO PM 11/02/19 11/10/19 History bisacodyl 5 mg SC BID PRN 11/02/19 11/10/19 History bisacodyl 20 mg PO HS 11/02/19 11/10/19 History fluoxetine 20 mg PO QAM 11/02/19 11/10/19 History gabapentin 100 mg PO PM 11/02/19 11/10/19 History loperamide 2 mg PO TID 11/02/19 11/10/19 History magnesium hydroxide [Milk Of 30 ml PO DAILY PRN 11/02/19 11/10/19 History Magnesia Concentrated] mirtazapine 15 mg PO PM 11/02/19 11/10/19 History ondansetron HCl [Zofran] 4 mg PO Q6H PRN 11/02/19 11/10/19 History pantoprazole 20 mg PO QAM 11/02/19 11/10/19 History polyethylene glycol 3350 [Miralax] 17 g PO ONCE 11/02/19 11/10/19 History thiamine HCl (vitamin B1) 100 mg PO QAM 11/02/19 11/10/19 History Saccharomyces boulardii [Florastor] 250 mg PO BID #20 cap 11/06/19 11/10/19 Rx cefdinir 300 mg PO BID 7 Days #14 cap 11/06/19 11/10/19 Rx enoxaparin 40 mg SUBCUT DAILY 11/06/19 11/10/19 History metoprolol tartrate 12.5 mg PO BID 11/06/19 11/10/19 History multivitamin 1 tab PO DAILY 11/06/19 11/10/19 History Patient History Medical History Aphasia Cerebral infarct Constipation Crohn's disease Dysphagia GERD (gastroesophageal reflux disease) Hemiplegia and hemiparesis following cerebral infarction affecting right dominant side Iron deficiency anemia Major depressive disorder Non-traumatic intracranial hemorrhage assisted resident [place] 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 Unspecified severe protein-calorie malnutrition Ventricular tachycardia Surgical History Presence of other cardiac implants and grafts Social History Smoking Status: Former smoker Smoking End Date: years ago; Hx Alcohol Use: No Hx Substance Use: No Preferred Language: British Communication Ability: Effective Hebrew Teacher Required: No Beliefs That Will Affect Care: None Current Living Situation: Retirement Current Living Situation Comment: [facility] resident Other Information That Helps Us Care for You: No Feels Safe at Home: Yes Safety Concerns: Feels Safe At This Time Review of Systems Review of Systems: Gen: weakness from CVA. No fevers/chills/sweats Skin: Increased bruising, unsure for how long. Denies any yellow skin or eyes. No diffuse pruritus. Neuro: debilitated from VCA with general weakness, and right sided right sided arm weakness, aphasic. GI: no nausea/vomiting. No melena or hematochezia. No abdominal pain. Card: + fast heart beats prior to admission, no pain. Resp: no SOB, no cough Ext: no edema Physical Exam Constitutional: + ill appearing (chronically) and average body habitus aphasic, able to speak slowly, parts of words, uses her left hand to try to spell out words Eyes: PERRL, conjunctivae normal, anicteric sclerae ENMT: external ear and nose normal, oropharynx normal Neck: trachea midline, no thyromegaly Respiratory: normal respiratory effort, lungs clear to auscultation Cardiovascular: RRR, no murmur, no edema Gastrointestinal (Abdomen): normal bowel sounds, soft, nontender, no hepatosplenomegaly Musculoskeletal: Extremities: + abnormal strength (right sided weakness) Skin: multiple bruises Neurologic: general weakness, aphasic, right arm weakness Psychiatric: A+Ox3, euthymic affect Lymphatic: no cervical or axillary lymphadenopathy Results & Data ([facility]) Vital Signs (Past 12 Hours) Vital Signs Temp Pulse Pulse Resp BP Pulse Ox 11/14/19 07:14 37.0 C 91 H 14 85/57 L 98 11/14/19 03:59 37.2 C 88 16 88/56 L 94 11/14/19 00:50 82 Laboratory Results WBC 4, Hb 8, Hct 26, Plts 281, Na 141, K 4.1, BUN 4, Cr 0.5. Diagnostic Findings CT abd/pelvis with IV contrast: 1. Findings suggest a nonspecific colitis. Clinical correlation will be required. 2. Severe hepatic steatosis. 3. There is evidence of fluid overload including body wall edema, moderate pleural effusions, and a small volume of abdominopelvic ascites. 4. Retained cortical contrast is noted in the kidneys. This could be seen in the setting of acute renal injury and clinical correlation will be required. 5. There is no hyperdense fluid collection identified to suggest hematoma. 6. Additional findings as above.
--- NOTE | 2019-11-14 18:19 | Critical Care Consultation ---
Date of Consultation November 14, 2019 Assessment & Plan (1) Pulmonary embolism: Reason Critically Ill: Patient is a 49y/o female with past history significant for large L MCA and small R MCA stroke with cerebral edema, and subsequent hemorrhagic conversion (05/2019); transferred to the ICU for concern of undifferentiated shock in the setting of persistent tachycardia, and hypotension with limited urinary output and increasing peripheral edema. Neuro: - CAM ICU negative - baseline of expressive aphasia, with R-sided hemiparesis Cardiac/Vascular: - tachycardic, hypotensive, and with 2+ pitting edema to b/l lower extremities and RUE - Venous doppler (11/09) demonstrated: 1. There is nearly occlusive deep venous thrombosis identified in the left popliteal vein which extends into the calf. 2. There is no sonographic evidence of deep venous thrombosis identified in the right lower extremity. - Echo (11/10) - EF 50-55%, no evidence of right ventricular pressure or volume overload, normal RV size and function - EKG (11/13) sinus tachycardia, no ST abnormalities - 1L NSS bolus given relative increase in tachycardia (150s) upon presentation to ICU, spontaneous reversion to 110s after 0.5L of NSS - Albumin 1.0 - negative troponin, negative BNP - repeat Echo in AM given worsening peripheral edema with persistent tachycardia Respiratory: - Chest CTA 11/09 demonstrated bilateral segmental and subsegmental pulmonary emboli, moderate to large pleural effusions - no increased oxygen requirements GI/Nutrition: - history of Crohn's disease - CT abd/pelv 11/10 demonstrated: 1. Findings suggest a nonspecific colitis. Clinical correlation will be required. 2. Severe hepatic steatosis. 3. There is evidence of fluid overload including body wall edema, moderate pleural effusions, and a small volume of abdominopelvic ascites. 4. Retained cortical contrast is noted in the kidneys. This could be seen in the setting of acute renal injury and clinical correlation will be required. 5. There is no hyperdense fluid collection identified to suggest hematoma. Renal/Lytes: - no significant electrolyte abnormalities : - Plata catheter (placed 11/10) - continue to monitor output ENDO: - TSH 2.67 on admission, no previous history - random Cortisol 23.99 HEME: - Hgd stable, no signs of active bleeding - coagulopathy without clear source; hyper-coag work-up negative per review of [facility] records - INR 2.4 (received Warfarin 5mg on 11/12) - anti-Xa level 1.29 ID: - pro-samantha 0.2 - no current abx, received three days of Rocephin (11/10-11/12) - Blood culture from 11/11 with no growth at 48hrs Lines/IV Access: - PIVx1 LUE DVT Prophylaxis: - Lovenox (2) UTI (urinary tract infection): (3) Dysphagia: (4) History of cerebrovascular accident: (5) Hypoalbuminemia due to protein-calorie malnutrition: (6) Hypotension: Supervising Physician Co-Signing Physician Notes Dr. Carter was resident physician during care of patient. I separately evaluated patient for armstrong portions of the history and the exam. I was present during the critical portion of medical decision making, and I discussed the case with the resident. I generally agree with the findings and plan. Patient becoming more hypotensive, will obtain repeat labs, random cortisol, procalcitonin, I believe this is a pump related issue and anticipate a limited echo tomorrow. We will start with volume expansion and may need to transition to vasoactive medication. Given her venous thromboembolism's and diffuse swelling in extremities I am holding off advanced axis until which time we need to administer vasoactive medications. Patient is critically ill due to hypotension in the setting of acute venous thromboembolic disease. I have personally spent 70 minutes of critical care time in the direct management of this patient. This is a life/limb threatening event. This includes time spent evaluating patient, direct bedside care, chart review, placing orders, interpretation of diagnostic studies, discussion with consultants, patient, and/or family members regarding treatment decisions, as well as other required patient management activities. This time is exclusive of all separately billable procedures, and teaching time and separate from and in addition to any other critical care service time. History of Present Illness Attending Physician: Kyrie Cordero History of Present Illness Patient is a 49y/o female with past history significant for large L MCA and small R MCA stroke with cerebral edema, and subsequent hemorrhagic conversion (05/2019) with residual expressive aphasia and right sided hemiparesis. Transferred to the ICU for concern of shock in the setting of persistent tachycardia (110s), with persistent hypotension, limited urinary output, and increasing peripheral edema. Is able to respond in yes or no statements, and denies pain, shortness of breath. Had two episodes of vomiting this AM, with no associated nausea or abdominal pain. Upon presentation to the ICU, tachycardia worsened to 150s, with continued hypotension, continued to deny chest pain, shortness of breath, nausea, vomiting, dizziness, light-headedness, changes in vision. Allergies Allergy/AdvReac Type Severity Reaction Status Date / Time Sulfa (Sulfonamide Allergy Intermediate RASH TO Verified 11/10/19 12:36 Antibiotics) FACE Home Medications Home Medications Medication Instructions Recorded Confirmed Type Calmoseptine 1 applic TOPICAL TID PRN 11/02/19 11/10/19 History Fleet Enema 118 ml [place] DAILY PRN 11/02/19 11/10/19 History Lactobacillus acidoph-L.bulgar 1 tab PO QDL 11/02/19 11/10/19 History [Floranex] acetaminophen [Tylenol] 325 mg PO QID PRN 11/02/19 11/10/19 History aspirin 81 mg PO QAM 11/02/19 11/10/19 History atorvastatin 40 mg PO PM 11/02/19 11/10/19 History bisacodyl 5 mg [place] BID PRN 11/02/19 11/10/19 History bisacodyl 20 mg PO HS 11/02/19 11/10/19 History fluoxetine 20 mg PO QAM 11/02/19 11/10/19 History gabapentin 100 mg PO PM 11/02/19 11/10/19 History loperamide 2 mg PO TID 11/02/19 11/10/19 History magnesium hydroxide [Milk Of 30 ml PO DAILY PRN 11/02/19 11/10/19 History Magnesia Concentrated] mirtazapine 15 mg PO PM 11/02/19 11/10/19 History ondansetron HCl [Zofran] 4 mg PO Q6H PRN 11/02/19 11/10/19 History pantoprazole 20 mg PO QAM 11/02/19 11/10/19 History polyethylene glycol 3350 [Miralax] 17 g PO ONCE 11/02/19 11/10/19 History thiamine HCl (vitamin B1) 100 mg PO QAM 11/02/19 11/10/19 History Saccharomyces boulardii [Florastor] 250 mg PO BID #20 cap 11/06/19 11/10/19 Rx cefdinir 300 mg PO BID 7 Days #14 cap 11/06/19 11/10/19 Rx enoxaparin 40 mg SUBCUT DAILY 11/06/19 11/10/19 History metoprolol tartrate 12.5 mg PO BID 11/06/19 11/10/19 History multivitamin 1 tab PO DAILY 11/06/19 11/10/19 History Patient History Medical History (Updated 11/15/19 @ 12:02 by Nishant Chou MD) Anemia Aphasia Cerebral infarct Constipation Crohn's disease Dysphagia GERD (gastroesophageal reflux disease) Hemiplegia and hemiparesis following cerebral infarction affecting right dominant side Hepatic steatosis Iron deficiency anemia Major depressive disorder Non-traumatic intracranial hemorrhage [facility] Other secondary thrombocytopenia Pulmonary embolism Retention of urine Status post placement of implantable loop recorder Toxic epidermal necrolysis Unspecified severe protein-calorie malnutrition Social History Smoking Status: Former smoker Smoking End Date: years ago; Hx Alcohol Use: No Hx Substance Use: No Preferred Language: Bruneian Communication Ability: Effective Historical Interpreter Required: No Beliefs That Will Affect Care: None Current Living Situation: [facility] Current Living Situation Comment: [facility] resident Other Information That Helps Us Care for You: No Feels Safe at Home: Yes Safety Concerns: Feels Safe At This Time Review of Systems Review of Systems: All systems reviewed & are unremarkable except as noted in Subjective Physical Exam Constitutional: WD/WN, vitals as above + physical limitations Eyes: PERRL, conjunctivae normal, anicteric sclerae Neck: trachea midline, no thyromegaly Respiratory: normal respiratory effort; no respiratory distress, no labored breathing and no cough Auscultation: no diminished lung sounds, no crackles, no rales and no wheezes Cardiovascular: Rate/Rhythm: + tachycardic Heart Sounds: no gallop, no murmur and no cardiac rub Vessels: no JVD Extremities: + edema (b/l 3+ pitting edema to thigh, 2+ pitting edema to RUE) Gastrointestinal (Abdomen): normal bowel sounds, soft, nontender, no hepatosplenomegaly Musculoskeletal: Extremities: + limited ROM of extremities (RUE & RLE) Skin: + ecchymosis (LUE) Neurologic: + focal motor deficit (R sided hemiparesis) Speech / Cognition: + abnormal speech (expressive aphasia) Cranial Nerves: PERRL, EOM intact bilaterally, normal facial strength, tongue midline, normal hearing, able to rotate head bilaterally and able to elevate shoulders bilaterally Results & Data Results & Data ([facility]) Vital Signs (Past 12 Hours) Vital Signs Temp Pulse Pulse Pulse Resp BP Pulse Ox 11/14/19 17:33 37 C 109 H 109 H 17 96/68 L 99 11/14/19 16:35 110 H 20 81/48 L 100 11/14/19 16:00 122 H 11/14/19 15:39 86/59 L 11/14/19 15:38 36.6 C 113 H 18 74/55 L 98 11/14/19 12:05 36.7 C 113 H 19 87/64 L 99 11/14/19 07:14 37.0 C 91 H 14 85/57 L 98 Laboratory Results 11/14/19 11/14/19 11/14/19 Range/Units 18:09 18:09 18:09 WBC 12.10 H (4.8-10.8) K/uL RBC 3.44 L (4.2-5.4) M/uL Hgb 9.5 L (12.0-16.0) g/dL Hct 29.2 L (37-47) % MCV 84.9 (80-100) fL MCH 27.6 (25-34) pg MCHC 32.5 (32-36) g/dL RDW Std Deviation 51.7 H (36.4-46.3) fL RDW Coeff of Marcelina 16.7 H (11.5-14.5) % Plt Count 351 (130-400) K/uL MPV 10.2 (7.4-10.4) fL Immature Gran % (Auto) 0.3 % Neut % (Auto) 89.2 % Lymph % (Auto) 6.0 % [place] % (Auto) 4.0 % Eos % (Auto) 0.2 % Baso % (Auto) 0.3 % Neut # (Auto) 10.78 H (1.4-6.5) K/uL Lymph # (Auto) 0.73 L (1.2-3.4) K/uL [place] # (Auto) 0.49 (0.11-0.59) K/uL Eos # (Auto) 0.02 (0-0.5) K/uL Baso # (Auto) 0.04 (0-0.2) K/uL Immature Gran # (Auto) 0.04 H (0.00-0.02) K/uL PT (9.0-12.0) Seconds INR (0.9-1.1) Heparin Anti-Xa, LM Wt (< 0.10) IU/ML VBG pH 7.42 H (7.36-7.41) VBG pCO2 33 L (38-50) mmHg VBG pO2 26 mmHg VBG HCO3 21 mmol/L VBG O2 Saturation < 60.0 % VBG Base Excess -3.0 mEq/L Barometric Pressure 733.0 mm/Hg Sodium 141 (136-145) mmol/L Potassium 4.4 (3.5-5.1) mmol/L Chloride 114 H (98-107) mmol/L Carbon Dioxide 21 (21-32) mmol/L Anion Gap 6.0 (3-11) BUN 9 (7-18) mg/dl Creatinine 0.77 (0.6-1.2) mg/dl Est Cr Clr Drug Dosing 94.9 ml/min Est GFR ( Amer) 103.6 Est GFR (Non-Af Amer) 89.4 BUN/Creatinine Ratio 12.0 (10-20) Glucose 105 H (70-99) mg/dl Lactate (0.4-2.0) mmol/L Calcium 7.1 L (8.5-10.1) mg/dl Ionized Calcium (1.12-1.32) mmol/L Total Bilirubin 0.2 (0.2-1) mg/dl AST 71 H (15-37) U/L ALT 58 (12-78) U/L Alkaline Phosphatase 178 H (45-117) U/L Troponin I (0-0.045) ng/ml NT-Pro-B Natriuret Pep (0-900) pg/ml Total Protein 4.4 L (6.4-8.2) gm/dl Albumin 1.0 L (3.4-5.0) gm/dl Globulin 3.4 (2.5-4.0) gm/dl Albumin/Globulin Ratio 0.3 L (0.9-2) Procalcitonin (0-0.5) ng/ml Random Cortisol Nasal Screen MRSA (PCR) (Negative) Random Vancomycin mcg/ml 11/14/19 11/14/19 11/14/19 Range/Units 18:05 18:05 18:05 WBC (4.8-10.8) K/uL RBC (4.2-5.4) M/uL Hgb (12.0-16.0) g/dL Hct (37-47) % MCV (80-100) fL MCH (25-34) pg MCHC (32-36) g/dL RDW Std Deviation (36.4-46.3) fL RDW Coeff of Marcelina (11.5-14.5) % Plt Count (130-400) K/uL MPV (7.4-10.4) fL Immature Gran % (Auto) % Neut % (Auto) % Lymph % (Auto) % [place] % (Auto) % Eos % (Auto) % Baso % (Auto) % Neut # (Auto) (1.4-6.5) K/uL Lymph # (Auto) (1.2-3.4) K/uL [place] # (Auto) (0.11-0.59) K/uL Eos # (Auto) (0-0.5) K/uL Baso # (Auto) (0-0.2) K/uL Immature Gran # (Auto) (0.00-0.02) K/uL PT (9.0-12.0) Seconds INR (0.9-1.1) Heparin Anti-Xa, LM Wt (< 0.10) IU/ML VBG pH (7.36-7.41) VBG pCO2 (38-50) mmHg VBG pO2 mmHg VBG HCO3 mmol/L VBG O2 Saturation % VBG Base Excess mEq/L Barometric Pressure mm/Hg Sodium (136-145) mmol/L Potassium (3.5-5.1) mmol/L Chloride (98-107) mmol/L Carbon Dioxide (21-32) mmol/L Anion Gap (3-11) BUN (7-18) mg/dl Creatinine (0.6-1.2) mg/dl Est Cr Clr Drug Dosing ml/min Est GFR ( Amer) Est GFR (Non-Af Amer) BUN/Creatinine Ratio (10-20) Glucose (70-99) mg/dl Lactate 2.2 H* (0.4-2.0) mmol/L Calcium (8.5-10.1) mg/dl Ionized Calcium 1.06 L (1.12-1.32) mmol/L Total Bilirubin (0.2-1) mg/dl AST (15-37) U/L ALT (12-78) U/L Alkaline Phosphatase (45-117) U/L Troponin I < 0.015 (0-0.045) ng/ml NT-Pro-B Natriuret Pep 659 (0-900) pg/ml Total Protein (6.4-8.2) gm/dl Albumin (3.4-5.0) gm/dl Globulin (2.5-4.0) gm/dl Albumin/Globulin Ratio (0.9-2) Procalcitonin (0-0.5) ng/ml Random Cortisol Nasal Screen MRSA (PCR) (Negative) Random Vancomycin mcg/ml 11/14/19 11/14/19 11/14/19 Range/Units 18:05 18:05 18:05 WBC (4.8-10.8) K/uL RBC (4.2-5.4) M/uL Hgb (12.0-16.0) g/dL Hct (37-47) % MCV (80-100) fL MCH (25-34) pg MCHC (32-36) g/dL RDW Std Deviation (36.4-46.3) fL RDW Coeff of Marcelina (11.5-14.5) % Plt Count (130-400) K/uL MPV (7.4-10.4) fL Immature Gran % (Auto) % Neut % (Auto) % Lymph % (Auto) % [place] % (Auto) % Eos % (Auto) % Baso % (Auto) % Neut # (Auto) (1.4-6.5) K/uL Lymph # (Auto) (1.2-3.4) K/uL [place] # (Auto) (0.11-0.59) K/uL Eos # (Auto) (0-0.5) K/uL Baso # (Auto) (0-0.2) K/uL Immature Gran # (Auto) (0.00-0.02) K/uL PT (9.0-12.0) Seconds INR (0.9-1.1) Heparin Anti-Xa, LM Wt 1.29 (< 0.10) IU/ML VBG pH (7.36-7.41) VBG pCO2 (38-50) mmHg VBG pO2 mmHg VBG HCO3 mmol/L VBG O2 Saturation % VBG Base Excess mEq/L Barometric Pressure mm/Hg Sodium (136-145) mmol/L Potassium (3.5-5.1) mmol/L Chloride (98-107) mmol/L Carbon Dioxide (21-32) mmol/L Anion Gap (3-11) BUN (7-18) mg/dl Creatinine (0.6-1.2) mg/dl Est Cr Clr Drug Dosing ml/min Est GFR ( Amer) Est GFR (Non-Af Amer) BUN/Creatinine Ratio (10-20) Glucose (70-99) mg/dl Lactate (0.4-2.0) mmol/L Calcium (8.5-10.1) mg/dl Ionized Calcium (1.12-1.32) mmol/L Total Bilirubin (0.2-1) mg/dl AST (15-37) U/L ALT (12-78) U/L Alkaline Phosphatase (45-117) U/L Troponin I (0-0.045) ng/ml NT-Pro-B Natriuret Pep (0-900) pg/ml Total Protein (6.4-8.2) gm/dl Albumin (3.4-5.0) gm/dl Globulin (2.5-4.0) gm/dl Albumin/Globulin Ratio (0.9-2) Procalcitonin 0.20 (0-0.5) ng/ml Random Cortisol Pending Nasal Screen MRSA (PCR) (Negative) Random Vancomycin mcg/ml 11/14/19 11/14/19 11/14/19 Range/Units 17:20 05:22 05:22 WBC (4.8-10.8) K/uL RBC (4.2-5.4) M/uL Hgb (12.0-16.0) g/dL Hct (37-47) % MCV (80-100) fL MCH (25-34) pg MCHC (32-36) g/dL RDW Std Deviation (36.4-46.3) fL RDW Coeff of Marcelina (11.5-14.5) % Plt Count (130-400) K/uL MPV (7.4-10.4) fL Immature Gran % (Auto) % Neut % (Auto) % Lymph % (Auto) % [place] % (Auto) % Eos % (Auto) % Baso % (Auto) % Neut # (Auto) (1.4-6.5) K/uL Lymph # (Auto) (1.2-3.4) K/uL [place] # (Auto) (0.11-0.59) K/uL Eos # (Auto) (0-0.5) K/uL Baso # (Auto) (0-0.2) K/uL Immature Gran # (Auto) (0.00-0.02) K/uL PT 23.9 H (9.0-12.0) Seconds INR 2.4 H (0.9-1.1) Heparin Anti-Xa, LM Wt (< 0.10) IU/ML VBG pH (7.36-7.41) VBG pCO2 (38-50) mmHg VBG pO2 mmHg VBG HCO3 mmol/L VBG O2 Saturation % VBG Base Excess mEq/L Barometric Pressure mm/Hg Sodium (136-145) mmol/L Potassium (3.5-5.1) mmol/L Chloride (98-107) mmol/L Carbon Dioxide (21-32) mmol/L Anion Gap (3-11) BUN (7-18) mg/dl Creatinine (0.6-1.2) mg/dl Est Cr Clr Drug Dosing ml/min Est GFR ( Amer) Est GFR (Non-Af Amer) BUN/Creatinine Ratio (10-20) Glucose (70-99) mg/dl Lactate (0.4-2.0) mmol/L Calcium (8.5-10.1) mg/dl Ionized Calcium (1.12-1.32) mmol/L Total Bilirubin (0.2-1) mg/dl AST (15-37) U/L ALT (12-78) U/L Alkaline Phosphatase (45-117) U/L Troponin I (0-0.045) ng/ml NT-Pro-B Natriuret Pep (0-900) pg/ml Total Protein (6.4-8.2) gm/dl Albumin (3.4-5.0) gm/dl Globulin (2.5-4.0) gm/dl Albumin/Globulin Ratio (0.9-2) Procalcitonin (0-0.5) ng/ml Random Cortisol Nasal Screen MRSA (PCR) Negative (Negative) Random Vancomycin 24.6 mcg/ml 11/14/19 11/14/19 Range/Units 05:22 05:22 WBC 4.93 (4.8-10.8) K/uL RBC 3.06 L (4.2-5.4) M/uL Hgb 8.7 L (12.0-16.0) g/dL Hct 26.5 L (37-47) % MCV 86.6 (80-100) fL MCH 28.4 (25-34) pg MCHC 32.8 (32-36) g/dL RDW Std Deviation 52.9 H (36.4-46.3) fL RDW Coeff of Marcelina 16.6 H (11.5-14.5) % Plt Count 281 D (130-400) K/uL MPV 10.3 (7.4-10.4) fL Immature Gran % (Auto) % Neut % (Auto) % Lymph % (Auto) % [place] % (Auto) % Eos % (Auto) % Baso % (Auto) % Neut # (Auto) (1.4-6.5) K/uL Lymph # (Auto) (1.2-3.4) K/uL [place] # (Auto) (0.11-0.59) K/uL Eos # (Auto) (0-0.5) K/uL Baso # (Auto) (0-0.2) K/uL Immature Gran # (Auto) (0.00-0.02) K/uL PT (9.0-12.0) Seconds INR (0.9-1.1) Heparin Anti-Xa, LM Wt (< 0.10) IU/ML VBG pH (7.36-7.41) VBG pCO2 (38-50) mmHg VBG pO2 mmHg VBG HCO3 mmol/L VBG O2 Saturation % VBG Base Excess mEq/L Barometric Pressure mm/Hg Sodium 144 (136-145) mmol/L Potassium 4.1 (3.5-5.1) mmol/L Chloride 117 H (98-107) mmol/L Carbon Dioxide 23 (21-32) mmol/L Anion Gap 4.0 (3-11) BUN 9 (7-18) mg/dl Creatinine 0.50 L (0.6-1.2) mg/dl Est Cr Clr Drug Dosing 146.2 ml/min Est GFR ( Amer) 129.9 Est GFR (Non-Af Amer) 112.1 BUN/Creatinine Ratio 17.2 (10-20) Glucose 74 (70-99) mg/dl Lactate (0.4-2.0) mmol/L Calcium 6.8 L (8.5-10.1) mg/dl Ionized Calcium (1.12-1.32) mmol/L Total Bilirubin (0.2-1) mg/dl AST (15-37) U/L ALT (12-78) U/L Alkaline Phosphatase (45-117) U/L Troponin I (0-0.045) ng/ml NT-Pro-B Natriuret Pep (0-900) pg/ml Total Protein (6.4-8.2) gm/dl Albumin (3.4-5.0) gm/dl Globulin (2.5-4.0) gm/dl Albumin/Globulin Ratio (0.9-2) Procalcitonin (0-0.5) ng/ml Random Cortisol Nasal Screen MRSA (PCR) (Negative) Random Vancomycin mcg/ml Medications Administered Current Inpatient Medications Acetaminophen (Acetaminophen 325 Mg Tab) 650 mg PO Q4H PRN PRN Reason: Pain or Fever Stop: 12/10/19 16:09 Al Hydrox/Mg Hydrox/Simethicone (Aluminum/Magnesium Susp 30 Ml Udc) 15 ml PO Q4H PRN PRN Reason: Dyspepsia Stop: 12/10/19 16:09 Aspirin (Aspirin 81 Mg Ectab) 81 mg PO QAM [facility] Stop: 12/11/19 08:59 Last Admin: 11/14/19 07:47 Dose: 81 mg Documented by: Atorvastatin Calcium (Atorvastatin 40 Mg Tab) 40 mg PO PM [facility]LE[facility] Stop: 12/10/19 20:59 Last Admin: 11/13/19 20:02 Dose: 40 mg Documented by: Bisacodyl (Bisacodyl 5 Mg Tabec) 5 mg PO BID PRN PRN Reason: Constipation Stop: 12/10/19 16:14 Calamine/Phenol (Menthol-Zinc Oxide 360 Appln/120 Gm Tube) 1 appln EXT TID PRN PRN Reason: Skin Irritation Stop: 12/10/19 16:09 Enoxaparin Sodium (Enoxaparin 80 Mg/0.8 Ml Syr) 80 mg SQ Q12 [facility] Stop: 12/12/19 10:59 Last Admin: 11/14/19 07:48 Dose: 80 mg Documented by: Fluoxetine HCl (Fluoxetine Hcl 20 Mg Cap) 20 mg PO QAM [facility] Stop: 12/11/19 08:59 Last Admin: 11/14/19 07:47 Dose: 20 mg Documented by: Gabapentin (Gabapentin 100 Mg Cap) 100 mg PO PM@2029 [facility] Stop: 12/10/19 20:29 Last Admin: 11/13/19 20:00 Dose: 100 mg Documented by: Sodium Chloride (Nss 1000ml) 1,000 mls @ 999 mls/hr IV .Q1H1M [facility] Stop: 11/14/19 19:46 Lactobacillus Acidophilus (Lactobacillus Acidophilus (Floranex) Tab) 4 tab PO QDL [facility] Stop: 12/11/19 11:29 Last Admin: 11/14/19 12:03 Dose: 4 tab Documented by: Loperamide HCl (Loperamide Hcl 2 Mg Cap) 2 mg PO TID PRN PRN Reason: Diarrhea Stop: 12/10/19 16:21 Metoprolol Succinate (Metoprolol Succ 25mg Ext Rel Tab) 25 mg PO QPM [facility] Stop: 12/12/19 20:59 Last Admin: 11/13/19 20:04 Dose: Not Given Documented by: Metoprolol Tartrate (Metoprolol Tartrate 1 Mg/Ml Vial) 5 mg IV Q4 PRN PRN Reason: sbp> 185, dbp >95, HR >120 Stop: 12/10/19 16:09 Metoprolol Tartrate (Metoprolol Tartrate 25 Mg Tab) 12.5 mg PO Q8 [facility] Stop: 12/11/19 20:59 Last Admin: 11/12/19 08:06 Dose: 12.5 mg Documented by: Mirtazapine (Mirtazapine Tab 15 Mg Tab) 15 mg PO PM@2029 [facility] Stop: 12/10/19 20:29 Last Admin: 11/13/19 20:00 Dose: 15 mg Documented by: Multivitamins (Multivitamin Tab) 1 tab PO DAILY [facility] Stop: 12/11/19 08:59 Last Admin: 11/14/19 07:47 Dose: 1 tab Documented by: Ondansetron HCl (Ondansetron 4 Mg Od Tab) 4 mg PO Q6H PRN PRN Reason: Nausea Stop: 12/10/19 16:18 Ondansetron HCl (Ondansetron Inj 2 Mg/Ml 2 Ml Vial) 4 mg IV Q6H PRN PRN Reason: Nausea Stop: 12/10/19 16:09 Last Admin: 11/13/19 20:24 Dose: 4 mg Documented by: Pantoprazole Sodium (Pantoprazole 40 Mg Tab) 40 mg PO QAM [facility] Stop: 12/11/19 08:59 Last Admin: 11/14/19 07:47 Dose: 40 mg Documented by: Potassium Chloride (Potassium Chloride 20 Meq Tabcr) 20 meq PO BID [facility] Stop: 11/15/19 09:01 Last Admin: 11/14/19 07:47 Dose: 20 meq Documented by: Saccharomyces Boulardii (Saccharomyces Boulardii 250 Mg Cap) 250 mg PO BID [facility] Stop: 12/10/19 20:59 Last Admin: 11/14/19 07:47 Dose: 250 mg Documented by: Thiamine HCl (Thiamine Hcl 100 Mg Tab) 100 mg PO QAM [facility] Stop: 12/11/19 08:59 Last Admin: 11/14/19 07:50 Dose: 100 mg Documented by: Resident Activity Tracking Resident Involvement: Resident Care Provided Care Provided: Adult Hospital Medicine (Critical Care) (1) UTI (urinary tract infection) Hematuria presence: with hematuria Urinary tract infection type: acute cystitis Qualified Code(s): N30.01 - Acute cystitis with hematuria
[2019-11-14 18:23] LABS: Basophils # (auto) 0.04 K/uL (0-0.2); Basophils % (auto) 0.3 %; Eosinophils # (auto) 0.02 K/uL (0-0.5); Eosinophils % (auto) 0.2 %; Hematocrit (blood only) 29.2 % (37-47); Hemoglobin 9.5 g/dL (12.0-16.0); Immature Granulocytes # (auto) 0.04 K/uL (0.00-0.02); Immature Granulocytes % (auto) 0.3 %; Lymphocytes # (auto) 0.73 K/uL (1.2-3.4); Mean Corpuscular Hemoglobin 27.6 pg (25-34); Mean Corpuscular Volume 84.9 fL (80-100); Mean Platelet Volume 10.2 fL (7.4-10.4); Monocytes # (auto) 0.49 K/uL (0.11-0.59); Neutrophils # (auto) 10.78 K/uL (1.4-6.5); Neutrophils % (auto) 89.2 %; Platelet Count 351 K/uL (130-400); RDW Coefficient of Variation 16.7 % (11.5-14.5); RDW Standard Deviation 51.7 fL (36.4-46.3); Red Blood Count 3.44 M/uL (4.2-5.4)
--- NOTE | 2019-11-14 18:24 | Cardiology Consultation ---
Date of Consultation November 14, 2019 Assessment & Plan (1) Atrial tachycardia: (2) Hypotension: (3) Pulmonary embolism: (4) Sinus tachycardia: (5) Edema: (6) Status post placement of implantable loop recorder: ASSESSMENT/PLAN: 1. Paroxysmal atrial tachycardia: This was diagnosed at [facility] and was noted on telemetry here but no significant episodes since 11/12/2019. If blood pressure improves, would attempt low-dose beta-billy. Because she has not had any significant episode in the past 2 days, would not necessarily require any treatment currently. If blood pressure remains low and she requires treatment due to symptoms, prolonged episode, or unstable situation, could use amiodarone if necessary but for now, no changes recommended. She has a loop recorder in place from [facility] and this should be followed over time. It would not be unusual for to have more episodes of atrial tachycardia while presenting with pulmonary emboli as she did during this hospitalization. 2. Sinus tachycardia: She does have mild sinus tachycardia at times. This is likely due to her other comorbidities including pulmonary emboli, significant malnutrition, and hypotension. Would not specifically treat the sinus tachycardia, but rather underlying causes. 3. Pulmonary embolism: As per primary service. 4. Hypotension: Etiology uncertain. She is asymptomatic. There is no arrhythmia to explain her continued hypotension. Although she has significant edema, she may be intravascularly hypovolemic. She has no JVD. She is on antibiotics as she did have positive urine culture and blood culture from last week. Unfortunately, given her profound hypoalbuminemia, she will likely con tinue to third space, but if necessary, consider IV fluids to maintain appropriate blood pressure. 5. Edema: Likely due to profound hypoalbuminemia 0.8 on 11/12/2019. 6. Loop recorder: Placed by [facility] electrophysiology. It is unclear if she has follow-up arranged and she is not sure. Will touch base with Dr. Lopes. 7. Disposition: Unfortunately, she has had several significant issues over the past few months including large stroke with resulting expressive aphasia and right hemiparesis and now significant malnutrition. We did discuss today potential for palliative care consultation to help assist in any needs now or in the future but she declines. With lack of adequate nutrition, would expect poor prognosis. Please call with any other questions or concerns from a cardiology perspective. Cardiology will otherwise sign off at this time. Thank you for allowing me to participate in the care of your patient. Please call for any other questions or concerns. Sincerely, Alvin Almeida M.D. History of Present Illness Reason for Consultation: Atrial tachycardia Requesting Physician: Kyrie Cordero Attending Physician: Kyrie Cordero History of Present Illness Ms. Churchill is a pleasant 49-year-old female with history significant for large left MCA and small right MCA ischemic stroke with cerebral edema/brain compression and hemorrhagic conversion in May of 2019, Crohn disease, thrombocytosis, SVT/atrial tachycardia, severe protein caloric malnutrition, right hemiparesis, and loop recorder implantation at [facility] in June of 2019. She was seen in her hospital, 229 bed 1 earlier this afternoon at approximately 3:00 p.m.. On 06/09/2019, she was admitted at [facility] for a large MCA ischemic stroke with hemorrhagic conversion in the left basal ganglia. During her hospital stay, she reportedly was noted to have atrial tachycardia with heart rates as high as 140s that would self terminate after 1-2 minutes. She was treated with metoprolol 37.5 mg twice daily. Cardiology was consulted and placed a loop recorder on 06/15/2019. While hospitalized there, she was seen by Hematology. Iron transfusions were given for anemia and she was evaluated for her thrombocytosis. Neurology followed her for her stroke and hypercoagulable evaluation was performed. She underwent transthoracic ECHO on 06/10/2019 which demonstrated low-normal LV systolic function with mild septal hypokinesis verses abnormal motion consistent with bundle-branch block. EF was 55%. There were no significant valvular abnormalities and no right to left shunt demonstrated with agitated saline administration. She was admitted here on 11/10/2019 with reported chest pain and concern of atrial tachycardia which had been previously diagnosed at [facility]. She was tori gnosed with bilateral segmental and subsegmental pulmonary emboli with moderate to large bilateral pleural effusions as well as hepatic steatosis on CT a on 11/10/2019. Lower extremity ultrasound demonstrated nearly occlusive DVT in the left popliteal vein, extending into the calf on 11/10/2019. She was placed on anticoagulation therapy by primary service. Cardiology was consulted today for atrial tachycardia. She was noted to have episodes of tachycardia, with the most recent spike in heart rate being on 11/12/2019. Based on telemetry, rhythm appeared to be sinus and then she would have abrupt episodes of tachycardia that were self-limiting after several minutes. When her heart rate improved, there was once again an abrupt decrease in heart rate. On telemetry, there appeared to be P waves noted throughout the episodes of tachycardia but given the abrupt change, concern for atrial tachycardia. She has otherwise demonstrated normal sinus rhythm and sinus tachycardia. She has been having issues with hypotension and severe malnutrition. She was given metoprolol succinate 25 mg on 11/12/2019 but this has since been held due to hypotension. She has been completely asymptomatic during the episodes of atrial tachycardia. She has expressive aphasia but is able to answer questions. She denies chest pain, shortness of breath, syncope, near-syncope, palpitations. She is unable to move her right extremities. She has been unable to walk since her stroke. She has been residing at [facility] she has been evaluated here by Neurology and Gastroenterology. IV fluid has been administered with her hypotension and she has had a net positive balance of 6.8 L per documented I&Os. She states that she has not been eating much for the past 2 months. She has no appetite. She reports no issues with swallowing. Review of systems: As above. Review of systems otherwise negative/unremarkable. Family history: No known premature CAD. No history of bleeding or clotting disorder. Social history: She quit smoking in approximately 1999 after approximately 20 pack years. No significant alcohol or drug abuse. She has not been . No children. She currently resides at [facility] since her discharge from the hospital with stroke in June of 2019. She states that she formally worked at [employer]. She was unaccompanied today. She has no siblings. Her parents are alive. Allergies Allergy/AdvReac Type Severity Reaction Status Date / Time Sulfa (Sulfonamide Allergy Intermediate RASH TO Verified 11/10/19 12:36 Antibiotics) FACE Home Medications Home Medications Medication Instructions Recorded Confirmed Type Calmoseptine 1 applic TOPICAL TID PRN 11/02/19 11/10/19 History Fleet Enema 118 ml WI DAILY PRN 11/02/19 11/10/19 History Lactobacillus acidoph-L.bulgar 1 tab PO QDL 11/02/19 11/10/19 History [Floranex] acetaminophen [Tylenol] 325 mg PO QID PRN 11/02/19 11/10/19 History aspirin 81 mg PO QAM 11/02/19 11/10/19 History atorvastatin 40 mg PO PM 11/02/19 11/10/19 History bisacodyl 5 mg WI BID PRN 11/02/19 11/10/19 History bisacodyl 20 mg PO HS 11/02/19 11/10/19 History fluoxetine 20 mg PO QAM 11/02/19 11/10/19 History gabapentin 100 mg PO PM 11/02/19 11/10/19 History loperamide 2 mg PO TID 11/02/19 11/10/19 History magnesium hydroxide [Milk Of 30 ml PO DAILY PRN 11/02/19 11/10/19 History Magnesia Concentrated] mirtazapine 15 mg PO PM 11/02/19 11/10/19 History ondansetron HCl [Zofran] 4 mg PO Q6H PRN 11/02/19 11/10/19 History pantoprazole 20 mg PO QAM 11/02/19 11/10/19 History polyethylene glycol 3350 [Miralax] 17 g PO ONCE 11/02/19 11/10/19 History thiamine HCl (vitamin B1) 100 mg PO QAM 11/02/19 11/10/19 History Saccharomyces boulardii [Florastor] 250 mg PO BID #20 cap 11/06/19 11/10/19 Rx cefdinir 300 mg PO BID 7 Days #14 cap 11/06/19 11/10/19 Rx enoxaparin 40 mg SUBCUT DAILY 11/06/19 11/10/19 History metoprolol tartrate 12.5 mg PO BID 11/06/19 11/10/19 History multivitamin 1 tab PO DAILY 11/06/19 11/10/19 History Patient History Medical History Aphasia Cerebral infarct Constipation Crohn's disease Dysphagia GERD (gastroesophageal reflux disease) Hemiplegia and hemiparesis following cerebral infarction affecting right domina nt side Iron deficiency anemia Major depressive disorder Non-traumatic intracranial hemorrhage residential resident [facility] 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 Unspecified severe protein-calorie malnutrition Ventricular tachycardia Surgical History Presence of other cardiac implants and grafts Social History Smoking Status: Former smoker Smoking End Date: years ago; Hx Alcohol Use: No Hx Substance Use: No Preferred Language: Rwandan Communication Ability: Effective Dispatch Supervisor Required: No Beliefs That Will Affect Care: None Current Living Situation: [facility] Current Living Situation Comment: [facility] resident Other Information That Helps Us Care for You: No Feels Safe at Home: Yes Safety Concerns: Feels Safe At This Time Physical Exam Physical Exam: Gen.: No acute distress. Alert. Expressive aphasia noted. Frail-appearing. HEENT: Anicteric sclera. Neck: No JVD. No bruits. Normal carotid upstrokes bilaterally. Cardiac: PMI was nondisplaced. No ventricular heave. Regular. Normal S1-S2. No murmurs, rubs, or gallops. Pulmonary: Clear to auscultation bilaterally without wheezes, rales, or rhonchi. Abdomen: Soft, nontender, nondistended, with normoactive bowel sounds. No bruits noted. 1+ body wall edema noted. Extremities: 1+ radial pulses bilaterally. 1+ posterior tibialis pulses bilaterally. 3+ bilateral lower extremity edema to the hips. No cyanosis. Psychiatric: Affect appears appropriate. Results & Data ([facility]) Vital Signs (Past 12 Hours) Vital Signs Temp Pulse Pulse Pulse Resp BP Pulse Ox 11/14/19 17:33 37 C 109 H 109 H 17 96/68 L 99 11/14/19 16:35 110 H 20 81/48 L 100 11/14/19 16:00 122 H 11/14/19 15:39 86/59 L 11/14/19 15:38 36.6 C 113 H 18 74/55 L 98 11/14/19 12:05 36.7 C 113 H 19 87/64 L 99 11/14/19 07:14 37.0 C 91 H 14 85/57 L 98 Intake & Output 11/12/19 11/13/19 11/14/19 11/15/19 06:59 06:59 06:59 06:59 Intake Total 3087 / 3087 1773.000 / 1773.000 800 / 800 260 / 260 Output Total 716 / 716 352 / 352 352 / 352 Balance 2371 / 2371 1421.000 / 1421.000 448 / 448 240 / 240 Weight 84 kg 81 kg 81.5 kg Laboratory Results Laboratory Results - last 24 hr 11/14/19 11/14/19 11/14/19 05:22 05:22 05:22 WBC 4.93 RBC 3.06 L Hgb 8.7 L Hct 26.5 L MCV 86.6 MCH 28.4 MCHC 32.8 RDW Std Deviation 52.9 H RDW Coeff of Marcelina 16.6 H Plt Count 281 D MPV 10.3 Immature Gran % (Auto) Neut % (Auto) Lymph % (Auto) Glasscock % (Auto) Eos % (Auto) Baso % (Auto) Neut # (Auto) Lymph # (Auto) Glasscock # (Auto) Eos # (Auto) Baso # (Auto) Immature Gran # (Auto) PT INR Heparin Anti-Xa, LM Wt VBG pH VBG pCO2 VBG pO2 VBG HCO3 VBG O2 Saturation VBG Base Excess Barometric Pressure Sodium 144 Potassium 4.1 Chloride 117 H Carbon Dioxide 23 Anion Gap 4.0 BUN 9 Creatinine 0.50 L Est Cr Clr Drug Dosing 146.2 Est GFR ( Amer) 129.9 Est GFR (Non-Af Amer) 112.1 BUN/Creatinine Ratio 17.2 Glucose 74 Lactate Calcium 6.8 L Ionized Calcium Total Bilirubin AST ALT Alkaline Phosphatase Troponin I NT-Pro-B Natriuret Pep Total Protein Albumin Globulin Albumin/Globulin Ratio Procalcitonin Random Cortisol Nasal Screen MRSA (PCR) Random Vancomycin 24.6 11/14/19 11/14/19 11/14/19 05:22 17:20 18:05 WBC RBC Hgb Hct MCV MCH MCHC RDW Std Deviation RDW Coeff of Marcelina Plt Count MPV Immature Gran % (Auto) Neut % (Auto) Lymph % (Auto) Glasscock % (Auto) Eos % (Auto) Baso % (Auto) Neut # (Auto) Lymph # (Auto) Glasscock # (Auto) Eos # (Auto) Baso # (Auto) Immature Gran # (Auto) PT 23.9 H INR 2.4 H Heparin Anti-Xa, LM Wt VBG pH VBG pCO2 VBG pO2 VBG HCO3 VBG O2 Saturation VBG Base Excess Barometric Pressure Sodium Potassium Chloride Carbon Dioxide Anion Gap BUN Creatinine Est Cr Clr Drug Dosing Est GFR ( Amer) Est GFR (Non-Af Amer) BUN/Creatinine Ratio Glucose Lactate Calcium Ionized Calcium Total Bilirubin AST ALT Alkaline Phosphatase Troponin I NT-Pro-B Natriuret Pep Total Protein Albumin Globulin Albumin/Globulin Ratio Procalcitonin Random Cortisol Pending Nasal Screen MRSA (PCR) Pending Random Vancomycin 11/14/19 11/14/19 11/14/19 18:05 18:05 18:05 WBC RBC Hgb Hct MCV MCH MCHC RDW Std Deviation RDW Coeff of Marcelina Plt Count MPV Immature Gran % (Auto) Neut % (Auto) Lymph % (Auto) Glasscock % (Auto) Eos % (Auto) Baso % (Auto) Neut # (Auto) Lymph # (Auto) Glasscock # (Auto) Eos # (Auto) Baso # (Auto) Immature Gran # (Auto) PT INR Heparin Anti-Xa, LM Wt Pending VBG pH VBG pCO2 VBG pO2 VBG HCO3 VBG O2 Saturation VBG Base Excess Barometric Pressure Sodium Potassium Chloride Carbon Dioxide Anion Gap BUN Creatinine Est Cr Clr Drug Dosing Est GFR ( Amer) Est GFR (Non-Af Amer) BUN/Creatinine Ratio Glucose Lactate Pending Calcium Ionized Calcium Total Bilirubin AST ALT Alkaline Phosphatase Troponin I NT-Pro-B Natriuret Pep Total Protein Albumin Globulin Albumin/Globulin Ratio Procalcitonin Pending Random Cortisol Nasal Screen MRSA (PCR) Random Vancomycin 11/14/19 11/14/19 11/14/19 18:05 18:05 18:09 WBC 12.10 H RBC 3.44 L Hgb 9.5 L Hct 29.2 L MCV 84.9 MCH 27.6 MCHC 32.5 RDW Std Deviation 51.7 H RDW Coeff of Marcelina 16.7 H Plt Count 351 MPV 10.2 Immature Gran % (Auto) 0.3 Neut % (Auto) 89.2 Lymph % (Auto) 6.0 Glasscock % (Auto) 4.0 Eos % (Auto) 0.2 Baso % (Auto) 0.3 Neut # (Auto) 10.78 H Lymph # (Auto) 0.73 L Glasscock # (Auto) 0.49 Eos # (Auto) 0.02 Baso # (Auto) 0.04 Immature Gran # (Auto) 0.04 H PT INR Heparin Anti-Xa, LM Wt VBG pH VBG pCO2 VBG pO2 VBG HCO3 VBG O2 Saturation VBG Base Excess Barometric Pressure Sodium Potassium Chloride Carbon Dioxide Anion Gap BUN Creatinine Est Cr Clr Drug Dosing Est GFR ( Amer) Est GFR (Non-Af Amer) BUN/Creatinine Ratio Glucose Lactate Calcium Ionized Calcium 1.06 L Total Bilirubin AST ALT Alkaline Phosphatase Troponin I Pending NT-Pro-B Natriuret Pep Pending Total Protein Albumin Globulin Albumin/Globulin Ratio Procalcitonin Random Cortisol Nasal Screen MRSA (PCR) Random Vancomycin 11/14/19 11/14/19 18:09 18:09 WBC RBC Hgb Hct MCV MCH MCHC RDW Std Deviation RDW Coeff of Marcelina Plt Count MPV Immature Gran % (Auto) Neut % (Auto) Lymph % (Auto) Glasscock % (Auto) Eos % (Auto) Baso % (Auto) Neut # (Auto) Lymph # (Auto) Glasscock # (Auto) Eos # (Auto) Baso # (Auto) Immature Gran # (Auto) PT INR Heparin Anti-Xa, LM Wt VBG pH 7.42 H VBG pCO2 33 L VBG pO2 26 VBG HCO3 21 VBG O2 Saturation < 60.0 VBG Base Excess -3.0 Barometric Pressure 733.0 Sodium Pending Potassium Pending Chloride Pending Carbon Dioxide Pending Anion Gap Pending BUN Pending Creatinine Pending Est Cr Clr Drug Dosing Pending Est GFR ( Amer) Pending Est GFR (Non-Af Amer) Pending BUN/Creatinine Ratio Pending Glucose Pending Lactate Calcium Pending Ionized Calcium Total Bilirubin Pending AST Pending ALT Pending Alkaline Phosphatase Pending Troponin I NT-Pro-B Natriuret Pep Total Protein Pending Albumin Pending Globulin Pending Albumin/Globulin Ratio Pending Procalcitonin Random Cortisol Nasal Screen MRSA (PCR) Random Vancomycin Diagnostic Findings Predominantly sinus rhythm with episodes of sinus tachycardia and abrupt increases in heart rate, suspicious for atrial tachycardia. Her most prominent episodes of possible atrial tachycardia occurred last on 11/12/2019. CTA of the chest from 11/10/2019 reviewed as noted above in HPI. Lower extremity Doppler from 11/10/2019 reviewed as noted above. Echo 11/11/2019: Normal LV systolic function and wall motion. EF 50-55%. Limited 2D echo. Full echo report from May of 2019 [facility] reviewed as noted above. ECGs personally reviewed: ECG 11/10/2019 at 11:54 a.m.: Possible atrial tachycardia 139 beats per minute. Nonspecific T-wave abnormality. ECG 11/10/2019 at 10:44 a.m.: Sinus tachycardia versus atrial tachycardia at 130 beats per minute. Nonspecific T-wave abnormality. ECG 11/11/2019 at 7:02 a.m.: Probable sinus rhythm 70 beats per minute. Low voltage. Nonspecific T-wave abnormality. ECG 11/11/2026 1:00 a.m.: Sinus rhythm 77 beats per minute. Nonspecific T-wave abnormality. Medications Administered Current Inpatient Medications Acetaminophen (Acetaminophen 325 Mg Tab) 650 mg PO Q4H PRN PRN Reason: Pain or Fever Stop: 12/10/19 16:09 Al Hydrox/Mg Hydrox/Simethicone (Aluminum/Magnesium Susp 30 Ml Udc) 15 ml PO Q4H PRN PRN Reason: Dyspepsia Stop: 12/10/19 16:09 Aspirin (Aspirin 81 Mg Ectab) 81 mg PO QAM [facility] Stop: 12/11/19 08:59 Last Admin: 11/14/19 07:47 Dose: 81 mg Documented by: Atorvastatin Calcium (Atorvastatin 40 Mg Tab) 40 mg PO PM [facility] Stop: 12/10/19 20:59 Last Admin: 11/13/19 20:02 Dose: 40 mg Documented by: Bisacodyl (Bisacodyl 5 Mg Tabec) 5 mg PO BID PRN PRN Reason: Constipation Stop: 12/10/19 16:14 Calamine/Phenol (Menthol-Zinc Oxide 360 Appln/120 Gm Tube) 1 appln EXT TID PRN PRN Reason: Skin Irritation Stop: 12/10/19 16:09 Enoxaparin Sodium (Enoxaparin 80 Mg/0.8 Ml Syr) 80 mg SQ Q12 [facility] Stop: 12/12/19 10:59 Last Admin: 11/14/19 07:48 Dose: 80 mg Documented by: Fluoxetine HCl (Fluoxetine Hcl 20 Mg Cap) 20 mg PO QAM [facility] Stop: 12/11/19 08:59 Last Admin: 11/14/19 07:47 Dose: 20 mg Documented by: Gabapentin (Gabapentin 100 Mg Cap) 100 mg PO PM@2029 [facility] Stop: 12/10/19 20:29 Last Admin: 11/13/19 20:00 Dose: 100 mg Documented by: Lactobacillus Acidophilus (Lactobacillus Acidophilus (Floranex) Tab) 4 tab PO QDL [facility] Stop: 12/11/19 11:29 Last Admin: 11/14/19 12:03 Dose: 4 tab Documented by: Loperamide HCl (Loperamide Hcl 2 Mg Cap) 2 mg PO TID PRN PRN Reason: Diarrhea Stop: 12/10/19 16:21 Metoprolol Succinate (Metoprolol Succ 25mg Ext Rel Tab) 25 mg PO QPM [facility] Stop: 12/12/19 20:59 Last Admin: 11/13/19 20:04 Dose: Not Given Documented by: Metoprolol Tartrate (Metoprolol Tartrate 1 Mg/Ml Vial) 5 mg IV Q4 PRN PRN Reason: sbp> 185, dbp >95, HR >120 Stop: 12/10/19 16:09 Metoprolol Tartrate (Metoprolol Tartrate 25 Mg Tab) 12.5 mg PO Q8 [facility] Stop: 12/11/19 20:59 Last Admin: 11/12/19 08:06 Dose: 12.5 mg Documented by: Mirtazapine (Mirtazapine Tab 15 Mg Tab) 15 mg PO PM@2030 [facility] Stop: 12/10/19 20:29 Last Admin: 11/13/19 20:00 Dose: 15 mg Documented by: Multivitamins (Multivitamin Tab) 1 tab PO DAILY [facility] Stop: 12/11/19 08:59 Last Admin: 11/14/19 07:47 Dose: 1 tab Documented by: Ondansetron HCl (Ondansetron 4 Mg Od Tab) 4 mg PO Q6H PRN PRN Reason: Nausea Stop: 12/10/19 16:18 Ondansetron HCl (Ondansetron Inj 2 Mg/Ml 2 Ml Vial) 4 mg IV Q6H PRN PRN Reason: Nausea Stop: 12/10/19 16:09 Last Admin: 11/13/19 20:24 Dose: 4 mg Documented by: Pantoprazole Sodium (Pantoprazole 40 Mg Tab) 40 mg PO QAM [facility] Stop: 12/11/19 08:59 Last Admin: 11/14/19 07:47 Dose: 40 mg Documented by: Potassium Chloride (Potassium Chloride 20 Meq Tabcr) 20 meq PO BID [facility] Stop: 11/15/19 09:01 Last Admin: 11/14/19 07:47 Dose: 20 meq Documented by: Saccharomyces Boulardii (Saccharomyces Boulardii 250 Mg Cap) 250 mg PO BID [facility] Stop: 09/27/20 20:59 Last Admin: 11/14/19 07:47 Dose: 250 mg Documented by: Thiamine HCl (Thiamine Hcl 100 Mg Tab) 100 mg PO QAM [facility] Stop: 12/11/19 08:59 Last Admin: 11/14/19 07:50 Dose: 100 mg Documented by: PG Care Time/CCT Total # of Minutes Spent Total Time Spent with Patient: Total time spent is greater than 50% in coordination of care (as documented) at patient's floor/unit and/or counseling patient: Coding Level of Care Code 42415 Initial Inpt Care Lvl 3 Diagnoses Atrial tachycardia I47.1 Hypotension I95.9 Pulmonary embolism I26.99 Sinus tachycardia R00.0 Edema R60.9 Status post placement of implantable loop recorder Z95.818
[2019-11-14 18:27] LABS: HCO3 VBG 21 mmol/L; PCO2 VBG 33 mmHg (38-50); PO2 VBG 26 mmHg; pH VBG 7.42 (7.36-7.41)
[2019-11-14 18:28] LABS: Mean Corpuscular Hgb Conc 32.5 g/dL (32-36)
[2019-11-14 18:29] LABS: Oxygen Saturation VBG < 60.0 %
[2019-11-14] MEDS ORDERED: SODIUM CHLORIDE 0.9% 1000ML 1,000 ML IV SCH (18:46)
[2019-11-14 18:56] LABS: Calcium 7.1 mg/dl (8.5-10.1); Creatinine Clr Calc Pharmacy 94.9 ml/min; Est GFR (African American) 103.6; Est GFR (Non-African American) 89.4; Potassium 4.4 mmol/L (3.5-5.1)
[2019-11-14 18:59] LABS: NT Pro B Type Natriuretic Pept 659 pg/ml (0-900); Troponin I < 0.015 ng/ml (0-0.045)
[2019-11-14 19:06] LABS: Albumin Globulin Ratio 0.3 (0.9-2); Bilirubin,Total 0.2 mg/dl (0.2-1); Globulin 3.4 gm/dl (2.5-4.0); Total Protein 4.4 gm/dl (6.4-8.2)
--- NOTE | 2019-11-14 19:19 | XRay Report ---
SINGLE VIEW CHEST CLINICAL HISTORY: Tachycardia. Hypotension. FINDINGS: An AP, portable, upright chest radiograph is compared to study dated 11/10/2019 and correlat ed with chest CT dated 11/11/2019. The examination is degraded by portable technique and patient rotat ion. The cardiomediastinal silhouette is unremarkable. There are low lung volumes. There are layerin g pleural effusions with bibasilar atelectasis. No pneumothorax is seen. The skeletal structures are osteopenic. The bony thorax is grossly intact. IMPRESSION: Layering pleural effusions with bibasilar atelectasis. This is similar to previous. ACT 112: Negative or not required by law. Electronically signed by: Brennan Colón M.D. 11/14/2019 7:18 PM
[2019-11-14] MEDS: ATORVASTATIN 40 MG TAB PO SCH ×2 (21:29→22:08)
[2019-11-14] MEDS: MIRTAZAPINE TAB 15 MG TAB PO SCH ×2 (21:29→22:08)
[2019-11-14] MEDS: GABAPENTIN 100 MG CAP PO SCH ×2 (21:29→22:08)
[2019-11-14] MEDS: METOPROLOL SUCC 25MG EXT REL TAB PO SCH (21:31)
[2019-11-14] MEDS: ONDANSETRON INJ 2 MG/ML 2 ML VIAL IV PRN (21:39)
--- NOTE | 2019-11-14 21:51 | Hospitalist Progress Note ---
Date of Service November 14, 2019 Assessment & Plan (1) Hypotension: Manual BP in both arms read 70/40s. 1L IV bolus immediately begun. Ddx as follows: * Obstructive - Known PE & DVT; however, clot burden relatively small and TTE showed good EF with no indication of RV overload. No pericardial effusion. * Distributive - No indication of sepsis causing low BP. No indication of anaphylaxis. Cortisol was 10 (normal for time of day). * Cardiogenic - TTE showed EF 50-55%. Troponin negative. * Hypovolemic - No indication of RP bleed on CT a/p. Hgb stable. On day of 11/10 Lactate was normal at 1.5 and she maintained mental status and UOP throughout. In the end, thought to be hypovolemia from colonoscopy prep and being NPO. Her BP responded to fluids. This case was discussed with Dr. Krishnamurthy who felt that without signs of end-organ damage, the patient did not warrant ICU status. Her right leg BP was also slightly higher pointing toward difficult readings with arm blood pressures. On day of 11/11: BP is slightly better, will continue to monitor, due to atrial tachycardia will add long acting metoprolol which should help control heart rate and may have decrease effect on BP. on 11/12: BP is borderline. HR is controlled, warfarin 5 mg 11/13 Patient remains hypotensive, not making urine. will transfer to ICU. (2) Pulmonary embolism: CTA chest on 11/09 shows bilateral pulmonary emboli. Doppler on 11/09 showed left popliteal DVT. - Heparin gtt started on admission; held temporarily due to concern for life- threatening bleed, then restarted the morning of 11/10. - Patient will need to be transitioned to likely warfarin. received 5 mg of warfarin. continue lovenox (3) History of cerebrovascular accident: History of large left MCA stroke in 05/2019, treated at [facility]. Had hemorrhagic conversion of the stroke. Thought to be thrombotic. Hypercoagulable work-up was largely negative with some testing planned to be repeated in 12 weeks after discharge. Unclear if any of this was done. - Continue ASA, statin - Neurology consult to weigh in on anticoagulation given the hemorrhagic conversion (4) Sinus tachycardia: Patient has a known history of atrial tachycardia. Implanted loop recorder put in at [employer] during admission for CVA. - HR at [place] was reportedly as high as 150, again possibly due to hypovolemia and PE. - Today generally normal. High as 115 in context of low BP above. Sometimes down in the 70 range, but then will bump up to 110 again. - Defer cardiology consult at this point given known issue which seems to be returning to normal with treatment of her other medical issues. Better controlled, will place on toprol XL 25 mg PO PM (5) UTI (urinary tract infection): Patient has an E. coli UTI documented on 11/05. She had 3 days of cefdinir prior to admission. (Started on 11/05). - Continue ceftriaxone for now. (6) Dysphagia: Due to prior stroke. - Aspiration precautions were undertaken - SENIOR GL ACCOUNTANT consulted (7) GERD (gastroesophageal reflux disease): - Continue pantoprazole (8) Major depressive disorder: Pleasant affect today despite medical issues. - Continue fluoxetine, mirtazapine, and gabapentin Admission and Anticipated Discharge Date Admission Date: November 11, 2019 Subjective Patient reports no new symptoms. D/W nursing, psatient is not making much urine. Review of Systems Review of Systems: All systems reviewed & are unremarkable except as noted in HPI & below Physical Exam Physical Exam: Constitutional: WD/WN, vitals as above Eyes: EOM intact bilaterally; no conjunctival abnormality ENMT: external ear and nose normal, oropharynx normal Neck: trachea midline, no thyromegaly normal visual inspection Respiratory: normal respiratory effort, lungs clear to auscultation no respiratory distress Cardiovascular: RRR, no murmur, no edema Gastrointestinal (Abdomen): Inspection/Auscultation: abdomen normal to inspection; abdomen not distended Musculoskeletal: no cyanosis or clubbing, extremities motor strength 5/5 Skin: no rashes, warm and dry Neurologic: awake; + does not move all extremities (Right hemiplegia) Psychiatric: Orientation: alert, oriented to person and cooperative Results & Data Results & Data ([facility]) Vital Signs (Past 12 Hours) Vital Signs Temp Pulse Pulse Pulse Resp BP Pulse Ox 11/14/19 20:00 36.8 C 11/14/19 17:33 37 C 109 H 109 H 17 96/68 L 99 11/14/19 16:35 110 H 20 81/48 L 100 11/14/19 16:00 122 H 11/14/19 15:39 86/59 L 11/14/19 15:38 36.6 C 113 H 18 74/55 L 98 11/14/19 12:05 36.7 C 113 H 19 87/64 L 99 PG Care Time/CCT Total # of Minutes Spent Total Time Spent with Patient: Total time spent is greater than 50% in coordination of care (as documented) at patient's floor/unit and/or counseling patient: Coding Level of Care Code 40299 Subseq Hosp Care Lvl 3 Diagnoses Hypotension I95.9 Pulmonary embolism I26.99 History of cerebrovascular accident Z86.73 Sinus tachycardia R00.0 UTI (urinary tract infection) N30.00 Hematuria presence: without hematuria Urinary tract infection type: acute cystitis Dysphagia R13.10 GERD (gastroesophageal reflux disease) K21.9 Major depressive disorder F32.9 Time Spent (min) 35 (1) UTI (urinary tract infection) Hematuria presence: without hematuria Urinary tract infection type: acute cystitis Qualified Code(s): N30.00 - Acute cystitis without hematuria
[2019-11-14] MEDS ORDERED: PIPERACILL/TAZOBAC CONSULT ACTIVE PRN (22:05)
[2019-11-14] MEDS ORDERED: STAT IV Infusion **Titration per Protocol STA (22:06)
[2019-11-14] MEDS ORDERED: PIPERACILLIN/TAZOBACTAM 4.5 GM in DEXTROSE 5% 100 ML IV ONE (22:30)
[2019-11-14] MEDS: NOREPINEPHRINE BIT INJ 8 MG in DEXTROSE 5% 500 ML IV SCH (22:50)
--- NOTE | 2019-11-14 22:51 | Procedure Note ---
Procedure Note Date of Service November 14, 2019 Note INTERNAL JUGULAR CENTRAL LINE PROCEDURE NOTE: Procedure: Internal Jugular Central Line Placement Attending: Dr. Domenic Rinaldi Provider: DEAN Bennett Indication: Central Drug Administration, Poor Venous Access, Multiple Lab Draws Necessary Anesthesia: Lidocaine 1% Line was placed emergently as patient is hypotensive and tachycardic requiring vasopressors, with limited peripheral access and multiple failed attempts to establish additional IV access. A time-out was completed verifying correct patient, procedure, site, positioning, and implants(s) or special equipment if applicable. Patients right neck was cleansed and draped in the typical sterile fashion using Chloraprep. The Internal Jugular Vein and Carotid Artery were identified using ultrasound. The superficial tissue was anesthetized using 3 mL of 1% lidocaine without epinephrine under direct visualization with the ultrasound. After adequate anesthetization was achieved, the Internal Jugular vein was cannulated under direct ultrasound guidance using an introducer needle on a syringe. Good venous blood return was maintained prior to removal of syringe from introducer needle. Using Seldinger Technique, a guide wire was advanced through the introducer needle without resistance. The introducer needle was removed and ultrasound images were obtained of the guide wire within the Internal Jugular Vein and saved to the patients medical record. A small incision was made in penetrating fashion at the guide wire insertion site utilizing an 11 blade scalpel. The dilator was advanced to the vessel without resistance. The dilator was exchanged for the triple lumen catheter which was advanced into the vessel without resistance. The guide wire was removed intact from the catheter without issue. Claves were placed on each catheter tip with confirmation of good blood flow from each lumen. Each port was easily flushed with sterile saline. The catheter was placed at 15 cm and sutured in place. BioPatch was applied to the catheter and a sterile Tegaderm dressing was applied over the catheter with careful attention to sterility. Patient tolerated procedure well. No immediate complications were met. Post procedure x-ray was completed, placement was appropriate and no pneumothorax was noted. Images obtained are saved for permanent record Procedural Ultrasound Guidance: Procedure Date: 11/14/2019 Indication: Central line insertion Attending: Dr. Domenic Rinaldi Provider: DEAN Bennett Artery AND Vein visualized: Yes Compressible Vein: Yes Guidewire or Short Catheter seen in vein prior to dilation: Yes Line confirmed in Vein with ultrasound: Yes Images obtained are saved for permanent record. Coding CPT Codes Tubes, Drains, and Vasc Access - Tubes, Drains, and Vasc Access: [id number] Place catheter in vein superior or inferior vena cava ([id number]) Tubes, Drains, and Vasc Access - Tubes, Drains, and Vasc Access: [id number] Ultrasound Guidance For Vascular ([id number]) [facility] [place] Procedure Codes (Charges) Tubes, Drains, and Vasc Access Procedure 1: Tubes, Drains, and Vasc Access: [id number] Place catheter in vein superior or inferior vena cava Procedure 2: Tubes, Drains, and Vasc Access: [id number] Ultrasound Guidance For Vascular
[2019-11-14] MEDS: NORMOSOL-R 1,000 ML IV SCH (23:29)
[2019-11-14] MEDS ORDERED: ALBUMIN 5% 250 ML IV ONE (23:45)
[2019-11-15] MEDS ORDERED: PIPERACILLIN/TAZOBACTAM 4.5 GM in DEXTROSE 5% 100 ML IV SCH (04:00)
[2019-11-15 04:51] LABS: Prothrombin Time 29.7 Seconds (9.0-12.0)
[2019-11-15 04:52] LABS: Hematocrit (blood only) 19.2 % (37-47); Hemoglobin 6.4 g/dL (12.0-16.0); Mean Corpuscular Hemoglobin 28.1 pg (25-34); Mean Corpuscular Hgb Conc 33.3 g/dL (32-36); Mean Corpuscular Volume 84.2 fL (80-100); Mean Platelet Volume 9.9 fL (7.4-10.4); Platelet Count 288 K/uL (130-400); RDW Coefficient of Variation 16.6 % (11.5-14.5); RDW Standard Deviation 50.6 fL (36.4-46.3); Red Blood Count 2.28 M/uL (4.2-5.4)
[2019-11-15 05:01] LABS: Albumin Level 1.2 gm/dl (3.4-5.0); BUN Creatinine Ratio 15.1 (10-20); Bilirubin Direct 0.1 mg/dl (0-0.2); Calcium 6.6 mg/dl (8.5-10.1); Creatinine Clr Calc Pharmacy 119.8 ml/min; Est GFR (African American) 121.7; Magnesium 1.9 mg/dl (1.8-2.4)
[2019-11-15 05:03] LABS: Bilirubin,Total 0.4 mg/dl (0.2-1); Phosphorus 2.7 mg/dl (2.5-4.9); Total Protein 3.6 gm/dl (6.4-8.2)
[2019-11-15 05:16] LABS: Basophils # (auto) 0.03 K/uL (0-0.2); Basophils % (auto) 0.3 %; Eosinophils # (auto) 0.03 K/uL (0-0.5); Eosinophils % (auto) 0.3 %; Immature Granulocytes # (auto) 0.03 K/uL (0.00-0.02); Immature Granulocytes % (auto) 0.3 %; Lymphocytes # (auto) 0.71 K/uL (1.2-3.4); Lymphocytes % (auto) 7.1 %; Monocytes # (auto) 0.42 K/uL (0.11-0.59); Monocytes % (auto) 4.2 %; Neutrophils # (auto) 8.78 K/uL (1.4-6.5); Neutrophils % (auto) 87.8 %; Polychromasia 1+
[2019-11-15] MEDS ORDERED: SODIUM CHLORIDE 0.9% 250 ML IV PRN ×6 (05:27→14:08)
[2019-11-15] MEDS: NORMOSOL-R 1,000 ML IV SCH ×3 (06:26→21:58)
--- NOTE | 2019-11-15 06:58 | XRay Report ---
XR chest 1V portable CLINICAL HISTORY: Line placement COMPARISON STUDY: 11/14/2019 FINDINGS: The cardiac and mediastinal contours remain stable. There is been interval placement of a r ight internal jugular central venous catheter. The tip projects over the atriocaval junction. There i s no pneumothorax. There are bilateral pleural effusions with hazy basilar opacities likely represent ing compressive atelectasis.[ IMPRESSION: Interval placement of a right internal jugular central venous catheter. No evidence of pn eumothorax ACT 112: Negative or not required by law. Electronically signed by: Elfego Conn M.D. 11/15/2019 6:56 AM
--- NOTE | 2019-11-15 07:12 | CT Scan Report ---
ABDOMEN AND PELVIS CT WITHOUT CONTRAST CT DOSE: 1329.19 mGy.cm HISTORY: Hypotension with possible abdominal hemorrhage hypotension, acute hemmorhage TECHNIQUE: Multiaxial CT images of the abdomen and pelvis were performed without contrast. A dose lo wering technique was utilized adhering to the principles of ALARA. COMPARISON STUDY: CT abdomen and pelvis 11/11/2019 FINDINGS: Moderate pleural effusions with dependent bibasilar consolidation. Limited exam secondary to upper ex tremity positioning and lack of IV contrast. No pneumatosis or pneumoperitoneum. Coronary artery calc ifications. Trace pericardial effusion. Diminutive spleen. Pancreas and adrenal glands are unremarkable. Visualized gallbladder is unremarkab le. Severe hepatic steatosis. Kidneys are unremarkable without hydronephrosis. Decompressed or bladde r with Plata catheter. Air within the nondependent bladder is likely secondary to instrumentation. Un remarkable uterus and adnexa. No aortic aneurysm or adenopathy. There is an acute retroperitoneal hem atoma within the right iliacus distribution measuring up to 7.2 x 3.7 x 14.1 cm. [Acute hemorrhage is also noted within the right psoas and iliopsoas distributions. Small hiatal hernia. Small volume of abdominal pelvic ascites. There is wall thickening again noted t hroughout the colon and rectum. Additional wall thickening is noted within several loops of proximal and mid jejunum. Moderate generalized body wall edema. Scattered bone islands of the pelvis. Deminera lized appearance of the bones. Severe disc space narrowing at L5-S1. IMPRESSION: 1. Acute retroperitoneal hematoma of the right iliacus muscle and to a lesser extent within the psoas and iliopsoas distributions. 2. Wall thickening throughout the colon is redemonstrated. New areas of wall thickening are noted wit hin several loops of jejunum. Findings are suggestive of a nonspecific enterocolitis. 3. Fluid overload with moderate pleural effusions, anasarca and small volume of abdominopelvic ascite s. 4. Severe hepatic steatosis. 5. Additional findings as above. ACT 112: Negative or not required by law. The above report was generated using voice recognition software. It may contain grammatical, syntax o r spelling errors. Electronically signed by: Rodolfo Douglass M.D. 11/15/2019 7:10 AM
[2019-11-15] MEDS ORDERED: ACETAMINOPHEN 1000 MG/100 ML IV IV ONE (07:44)
[2019-11-15] MEDS ORDERED: PHYTONADIONE 2.5 MG in SODIUM CHLORIDE 0.9% 50 ML IV SCH (08:00)
--- NOTE | 2019-11-15 08:05 | Critical Care Progress Note ---
Date of Service November 15, 2019 Assessment & Plan (1) Pulmonary embolism: Reason Critically Ill: Patient is a 49y/o female with past history significant for large L MCA and small R MCA stroke with cerebral edema, and subsequent hemorrhagic conversion (05/2019); transferred to the ICU for concern of undifferentiated shock in the setting of persistent tachycardia, and hypotension with limited urinary output and increasing peripheral edema. Now with acute retroperitoneal hematoma, demonstrated on CT from 11/14 and in the setting of continued worsening anemia. Started on transfusion protocol has received 3 units of PRBCs, and 4 units of FFP. 2 units of PRBCs on hold as needed for continued transfusion, if continued worsening despite repletion consideration of repeat CT abdomen reviewed for determination of need for interventional radiology drainage of retroperitoneal hematoma. Neuro: - CAM ICU negative - baseline of expressive aphasia, with R-sided hemiparesis Cardiac/Vascular: - tachycardic, hypotensive, and with 2+ pitting edema to b/l lower extremities and RUE - Venous doppler (11/09) demonstrated: 1. There is nearly occlusive deep venous thrombosis identified in the left popliteal vein which extends into the calf. 2. There is no sonographic evidence of deep venous thrombosis identified in the right lower extremity. - Echo (11/10): EF 50-55%, no evidence of right ventricular pressure or volume overload, normal RV size and function - repeat Echo today demonstrated - EKG (11/13) sinus tachycardia, no ST abnormalities - started on Amiodarone bolus and drip for persistent tachycardia and hypotension, with resultant improvement in her heart rate and hypotension - Albumin 1.0 - negative troponin, negative BNP - repeat Echo in AM given worsening peripheral edema with persistent tachycardia - Vascular surgery consulted; placed IVC filter today Respiratory: - Chest CTA 11/09 demonstrated bilateral segmental and subsegmental pulmonary emboli, moderate to large pleural effusions - no increased oxygen requirements GI/Nutrition: - history of Crohn's disease - Acute retroperitoneal hematoma established on CT from 11/14 - CT abd/pelv 11/10 demonstrated: 1. Findings suggest a nonspecific colitis. Clinical correlation will be required. 2. Severe hepatic steatosis. 3. There is evidence of fluid overload including body wall edema, moderate pleural effusions, and a small volume of abdominopelvic ascites. 4. Retained cortical contrast is noted in the kidneys. This could be seen in the setting of acute renal injury and clinical correlation will be required. 5. There is no hyperdense fluid collection identified to suggest hematoma. - CT abd/pelv 11/14 demonstrated: 1. Acute retroperitoneal hematoma of the right iliacus muscle and to a lesser extent within the psoas and iliopsoas distributions. 2. Wall thickening throughout the colon is redemonstrated. New areas of wall thickening are noted within several loops of jejunum. Findings are suggestive of a nonspecific enterocolitis. 3. Fluid overload with moderate pleural effusions, anasarca and small volume of abdominopelvic ascites. 4. Severe hepatic steatosis. - Tolerating oral intake Renal/Lytes: - no significant electrolyte abnormalities : - Plata catheter (placed 11/10) - continue to monitor output ENDO: - TSH 2.67 on admission, no previous history - random Cortisol 23.99 HEME: - Hgd downtrending to 5.9 - received 3 unit of PRBCs, and 4 units of FFP, and 2.5mg of Vitamin K - continue to monitor H/H q4h - coagulopathy without clear source; hyper-coag work-up negative per review of [facility] [place] - INR 3.0 (received only Warfarin 5mg on 11/12) - anti-Xa level 1.29 ID: - pro-samantha 0.2 - prior to hospitalization had a non-complicated UTI that was treated as an outpatient with cefdinir before admission and then completed treatment with three days of Rocephin (11/10-11/12) - no current infectious source of - Blood culture from 11/11 with no growth at 48hrs Lines/IV Access: - PIV x1 DVT Prophylaxis: - Hold Lovenox in the setting of acute retroperitoneal bleed (2) UTI (urinary tract infection): (3) Dysphagia: (4) History of cerebrovascular accident: (5) Hypoalbuminemia due to protein-calorie malnutrition: (6) Hypotension: Admission and Anticipated Discharge Date Admission Date: November 11, 2019 Supervising Physician Co-Signing Physician Notes Dr. Carter was resident physician during care of patient. I separately evaluated patient for armstrong portions of the history and the exam. I was present during the critical portion of medical decision making, and I discussed the case with the resident. I generally agree with the findings and plan. Patient was discussed on multidisciplinary rounds. She was found to have a retroperitoneal hematoma, we have started blood transfusion. This is difficult because the patient has acute venous thromboembolic disease, we have consulted vascular surgery for a IVC filter placement. She is anticoagulated after a single dose of 5 mg of warfarin, I believe aggressive vitamin K repletion may be prothrombotic therefore we will give her 2.5 mg IV and bridge with FFP. I do not believe PCC should be administered given the thromboembolic disease burden. We will continue to closely monitor her H&H and transfuse as necessary. If the patient decompensates or has continued retroperitoneal bleeding transfer for possible IR intervention might be needed however this in and of itself would be rather difficult. Subjective Overnight had continued intermittent tachycardia persistent hypotension, was given 250mLs of Albumin and transfused 1 unit of PRBCs, additionally had worsening of her INR to 3.0, with no obvious signs of bleed. Was taken for CT of her abdomen given worsening of her anemia. Denies abdominal pain, nausea, vomiting, changes in vision, dizziness, chest pain, shortness of breath. Review of Systems Review of Systems: All systems reviewed & are unremarkable except as noted in Subjective Physical Exam Constitutional: WD/WN, vitals as above + physical limitations Eyes: PERRL, conjunctivae normal, anicteric sclerae Neck: trachea midline, no thyromegaly Respiratory: normal respiratory effort; no respiratory distress, no labored breathing and no cough Auscultation: no diminished lung sounds, no crackles, no rales and no wheezes Cardiovascular: Rate/Rhythm: + tachycardic Heart Sounds: no gallop, no murmur and no cardiac rub Vessels: no JVD Extremities: + edema (b/l 3+ pitting edema to thigh, 2+ pitting edema to RUE) Gastrointestinal (Abdomen): normal bowel sounds, soft, nontender, no hepatosplenomegaly Musculoskeletal: Extremities: + limited ROM of extremities (RUE & RLE) Skin: + ecchymosis (LUE) Neurologic: + focal motor deficit (R sided hemiparesis) Speech / Cognition: + abnormal speech (expressive aphasia) Cranial Nerves: PERRL, EOM intact bilaterally, normal facial strength, tongue midline, normal hearing, able to rotate head bilaterally and able to elevate shoulders bilaterally Results & Data Results & Data ([facility]) Vital Signs (Past 12 Hours) Vital Signs Temp Pulse Resp BP Pulse Ox 11/15/19 07:06 37.1 C 127 H 13 101/73 100 09/02/20 06:50 37.2 C 129 H 17 104/64 98 11/15/19 06:30 87 14 99 11/15/19 06:27 89 16 98/69 L 98 11/15/19 06:25 91 H 17 121/62 98 11/15/19 05:57 93 H 19 94/59 L 95 11/15/19 05:45 117 H 15 98 11/15/19 05:42 113 H 14 83/67 L 98 11/15/19 05:30 90 18 98 11/15/19 05:27 92 H 19 96/55 L 97 11/15/19 05:15 87 19 99 11/15/19 05:12 97 H 13 97/64 L 99 11/15/19 05:00 105 H 16 99 11/15/19 04:57 86 19 95/65 L 100 11/15/19 04:45 92 H 15 97 11/15/19 04:42 99 H 17 101/59 L 96 11/15/19 04:30 104 H 14 99 11/15/19 04:27 126 H 15 94/60 L 98 11/15/19 04:15 124 H 14 97 11/15/19 04:12 121 H 15 86/61 L 96 11/15/19 04:00 124 H 15 95 11/15/19 03:57 124 H 17 89/63 L 95 11/15/19 03:42 86 16 96/60 L 97 11/15/19 03:39 37.2 C 11/15/19 03:30 91 H 16 99 11/15/19 03:27 104 H 16 95/63 L 11/15/19 03:15 97 H 18 97 11/15/19 03:11 91 H 17 104/58 L 98 11/15/19 03:00 95 H 16 98 11/15/19 02:56 92 H 16 101/64 98 11/15/19 02:45 133 H 14 99 11/15/19 02:41 124 H 16 102/61 97 11/15/19 02:30 123 H 14 98 11/15/19 02:26 117 H 14 90/63 L 99 11/15/19 02:15 126 H 15 97 11/15/19 02:11 126 H 17 88/63 L 97 11/15/19 02:00 130 H 16 96 11/15/19 01:57 133 H 16 101/63 97 11/15/19 01:45 94 H 17 99 11/15/19 01:41 99 H 16 118/66 100 11/15/19 01:30 95 H 15 100 11/15/19 01:26 130 H 15 94/71 L 99 11/15/19 01:15 124 H 16 98 11/15/19 01:11 132 H 12 99/66 L 100 11/15/19 01:00 124 H 13 99 11/15/19 00:56 131 H 14 97/64 L 99 11/15/19 00:45 133 H 17 100 11/15/19 00:41 126 H 13 95/69 L 100 11/15/19 00:30 126 H 14 100 11/15/19 00:26 130 H 13 97/69 L 100 11/15/19 00:15 118 H 17 100 11/15/19 00:12 128 H 18 92/64 L 90 11/15/19 00:00 36.6 C 96 H 15 97 11/14/19 23:57 94 H 14 96/61 L 11/14/19 23:45 95 H 14 98 11/14/19 23:41 94 H 16 100/64 98 11/14/19 23:33 100 H 11/14/19 23:30 100 H 14 98 11/14/19 23:27 96 H 16 84/72 L 100 11/14/19 23:15 103 H 16 98 11/14/19 23:12 96 H 13 78/67 L 100 11/14/19 23:00 95 H 15 100 11/14/19 22:57 103 H 15 58/28 L 95 11/14/19 22:45 114 H 14 98 11/14/19 22:31 103 H 22 87/56 L 99 11/14/19 22:30 141 H 19 99 11/14/19 22:22 144 H 17 82/57 L 99 11/14/19 22:05 151 H 16 78/58 L 97 11/14/19 22:03 155 H 18 77/56 L 11/14/19 22:02 159 H 20 11/14/19 21:30 125 H 21 72/52 L 97 11/14/19 21:00 121 H 14 11/14/19 20:30 111 H 15 Laboratory Results 11/15/19 11/15/19 11/15/19 Range/Units 12:01 05:16 04:26 WBC (4.8-10.8) K/uL RBC (4.2-5.4) M/uL Hgb 5.9 L* (12.0-16.0) g/dL Hct 17.4 L* (37-47) % MCV (80-100) fL MCH (25-34) pg MCHC (32-36) g/dL RDW Std Deviation (36.4-46.3) fL RDW Coeff of Marcelina (11.5-14.5) % Plt Count (130-400) K/uL MPV (7.4-10.4) fL Immature Gran % (Auto) % Neut % (Auto) % Lymph % (Auto) % [place] % (Auto) % Eos % (Auto) % Baso % (Auto) % Neut # (Auto) (1.4-6.5) K/uL Lymph # (Auto) (1.2-3.4) K/uL [place] # (Auto) (0.11-0.59) K/uL Eos # (Auto) (0-0.5) K/uL Baso # (Auto) (0-0.2) K/uL Immature Gran # (Auto) (0.00-0.02) K/uL Polychromasia PT (9.0-12.0) Seconds INR (0.9-1.1) Heparin Anti-Xa, LM Wt (< 0.10) IU/ML VBG pH (7.36-7.41) VBG pCO2 (38-50) mmHg VBG pO2 mmHg VBG HCO3 mmol/L VBG O2 Saturation % VBG Base Excess mEq/L Barometric Pressure mm/Hg Sodium (136-145) mmol/L Potassium (3.5-5.1) mmol/L Chloride (98-107) mmol/L Carbon Dioxide (21-32) mmol/L Anion Gap (3-11) BUN (7-18) mg/dl Creatinine (0.6-1.2) mg/dl Est Cr Clr Drug Dosing ml/min Est GFR ( Amer) Est GFR (Non-Af Amer) BUN/Creatinine Ratio (10-20) Glucose (70-99) mg/dl POC Glucose 119 H (70-99) mg/dl Lactate (0.4-2.0) mmol/L Calcium (8.5-10.1) mg/dl Ionized Calcium (1.12-1.32) mmol/L Phosphorus (2.5-4.9) mg/dl Magnesium (1.8-2.4) mg/dl Total Bilirubin (0.2-1) mg/dl Direct Bilirubin (0-0.2) mg/dl AST (15-37) U/L ALT (12-78) U/L Alkaline Phosphatase (45-117) U/L Troponin I (0-0.045) ng/ml NT-Pro-B Natriuret Pep (0-900) pg/ml Total Protein (6.4-8.2) gm/dl Albumin (3.4-5.0) gm/dl Globulin (2.5-4.0) gm/dl Albumin/Globulin Ratio (0.9-2) Procalcitonin 0.17 (0-0.5) ng/ml Random Cortisol mcg/dl Nasal Screen MRSA (PCR) (Negative) Blood Type Antibody Screen Crossmatch 11/15/19 11/15/19 11/15/19 Range/Units 04:26 04:26 04:26 WBC 10.00 (4.8-10.8) K/uL RBC 2.28 L (4.2-5.4) M/uL Hgb 6.4 L* D (12.0-16.0) g/dL Hct 19.2 L* (37-47) % MCV 84.2 (80-100) fL MCH 28.1 (25-34) pg MCHC 33.3 (32-36) g/dL RDW Std Deviation 50.6 H (36.4-46.3) fL RDW Coeff of Marcelina 16.6 H (11.5-14.5) % Plt Count 288 (130-400) K/uL MPV 9.9 (7.4-10.4) fL Immature Gran % (Auto) 0.3 % Neut % (Auto) 87.8 % Lymph % (Auto) 7.1 % [place] % (Auto) 4.2 % Eos % (Auto) 0.3 % Baso % (Auto) 0.3 % Neut # (Auto) 8.78 H (1.4-6.5) K/uL Lymph # (Auto) 0.71 L (1.2-3.4) K/uL [place] # (Auto) 0.42 (0.11-0.59) K/uL Eos # (Auto) 0.03 (0-0.5) K/uL Baso # (Auto) 0.03 (0-0.2) K/uL Immature Gran # (Auto) 0.03 H (0.00-0.02) K/uL Polychromasia 1+ PT 29.7 H (9.0-12.0) Seconds INR 3.0 H (0.9-1.1) Heparin Anti-Xa, LM Wt (< 0.10) IU/ML VBG pH (7.36-7.41) VBG pCO2 (38-50) mmHg VBG pO2 mmHg VBG HCO3 mmol/L VBG O2 Saturation % VBG Base Excess mEq/L Barometric Pressure mm/Hg Sodium 141 (136-145) mmol/L Potassium 4.0 (3.5-5.1) mmol/L Chloride 115 H (98-107) mmol/L Carbon Dioxide 21 (21-32) mmol/L Anion Gap 5.0 (3-11) BUN 9 (7-18) mg/dl Creatinine 0.61 (0.6-1.2) mg/dl Est Cr Clr Drug Dosing 119.8 ml/min Est GFR ( Amer) 121.7 Est GFR (Non-Af Amer) 105.0 BUN/Creatinine Ratio 15.1 (10-20) Glucose 115 H (70-99) mg/dl POC Glucose (70-99) mg/dl Lactate (0.4-2.0) mmol/L Calcium 6.6 L (8.5-10.1) mg/dl Ionized Calcium (1.12-1.32) mmol/L Phosphorus 2.7 (2.5-4.9) mg/dl Magnesium 1.9 (1.8-2.4) mg/dl Total Bilirubin 0.4 (0.2-1) mg/dl Direct Bilirubin 0.1 (0-0.2) mg/dl AST 38 H (15-37) U/L ALT 36 (12-78) U/L Alkaline Phosphatase 117 (45-117) U/L Troponin I (0-0.045) ng/ml NT-Pro-B Natriuret Pep (0-900) pg/ml Total Protein 3.6 L (6.4-8.2) gm/dl Albumin 1.2 L (3.4-5.0) gm/dl Globulin (2.5-4.0) gm/dl Albumin/Globulin Ratio (0.9-2) Procalcitonin (0-0.5) ng/ml Random Cortisol mcg/dl Nasal Screen MRSA (PCR) (Negative) Blood Type Antibody Screen Crossmatch 11/15/19 11/14/19 11/14/19 Range/Units 01:01 23:19 18:09 WBC (4.8-10.8) K/uL RBC (4.2-5.4) M/uL Hgb (12.0-16.0) g/dL Hct (37-47) % MCV (80-100) fL MCH (25-34) pg MCHC (32-36) g/dL RDW Std Deviation (36.4-46.3) fL RDW Coeff of Marcelina (11.5-14.5) % Plt Count (130-400) K/uL MPV (7.4-10.4) fL Immature Gran % (Auto) % Neut % (Auto) % Lymph % (Auto) % [place] % (Auto) % Eos % (Auto) % Baso % (Auto) % Neut # (Auto) (1.4-6.5) K/uL Lymph # (Auto) (1.2-3.4) K/uL [place] # (Auto) (0.11-0.59) K/uL Eos # (Auto) (0-0.5) K/uL Baso # (Auto) (0-0.2) K/uL Immature Gran # (Auto) (0.00-0.02) K/uL Polychromasia PT (9.0-12.0) Seconds INR (0.9-1.1) Heparin Anti-Xa, LM Wt (< 0.10) IU/ML VBG pH 7.42 H (7.36-7.41) VBG pCO2 33 L (38-50) mmHg VBG pO2 26 mmHg VBG HCO3 21 mmol/L VBG O2 Saturation < 60.0 % VBG Base Excess -3.0 mEq/L Barometric Pressure 733.0 mm/Hg Sodium (136-145) mmol/L Potassium (3.5-5.1) mmol/L Chloride (98-107) mmol/L Carbon Dioxide (21-32) mmol/L Anion Gap (3-11) BUN (7-18) mg/dl Creatinine (0.6-1.2) mg/dl Est Cr Clr Drug Dosing ml/min Est GFR ( Amer) Est GFR (Non-Af Amer) BUN/Creatinine Ratio (10-20) Glucose (70-99) mg/dl POC Glucose 118 H (70-99) mg/dl Lactate 1.5 (0.4-2.0) mmol/L Calcium (8.5-10.1) mg/dl Ionized Calcium (1.12-1.32) mmol/L Phosphorus (2.5-4.9) mg/dl Magnesium (1.8-2.4) mg/dl Total Bilirubin (0.2-1) mg/dl Direct Bilirubin (0-0.2) mg/dl AST (15-37) U/L ALT (12-78) U/L Alkaline Phosphatase (45-117) U/L Troponin I (0-0.045) ng/ml NT-Pro-B Natriuret Pep (0-900) pg/ml Total Protein (6.4-8.2) gm/dl Albumin (3.4-5.0) gm/dl Globulin (2.5-4.0) gm/dl Albumin/Globulin Ratio (0.9-2) Procalcitonin (0-0.5) ng/ml Random Cortisol mcg/dl Nasal Screen MRSA (PCR) (Negative) Blood Type Antibody Screen Crossmatch 11/14/19 11/14/19 11/14/19 Range/Units 18:09 18:09 18:05 WBC 12.10 H (4.8-10.8) K/uL RBC 3.44 L (4.2-5.4) M/uL Hgb 9.5 L (12.0-16.0) g/dL Hct 29.2 L (37-47) % MCV 84.9 (80-100) fL MCH 27.6 (25-34) pg MCHC 32.5 (32-36) g/dL RDW Std Deviation 51.7 H (36.4-46.3) fL RDW Coeff of Marcelina 16.7 H (11.5-14.5) % Plt Count 351 (130-400) K/uL MPV 10.2 (7.4-10.4) fL Immature Gran % (Auto) 0.3 % Neut % (Auto) 89.2 % Lymph % (Auto) 6.0 % [place] % (Auto) 4.0 % Eos % (Auto) 0.2 % Baso % (Auto) 0.3 % Neut # (Auto) 10.78 H (1.4-6.5) K/uL Lymph # (Auto) 0.73 L (1.2-3.4) K/uL [place] # (Auto) 0.49 (0.11-0.59) K/uL Eos # (Auto) 0.02 (0-0.5) K/uL Baso # (Auto) 0.04 (0-0.2) K/uL Immature Gran # (Auto) 0.04 H (0.00-0.02) K/uL Polychromasia PT (9.0-12.0) Seconds INR (0.9-1.1) Heparin Anti-Xa, LM Wt (< 0.10) IU/ML VBG pH (7.36-7.41) VBG pCO2 (38-50) mmHg VBG pO2 mmHg VBG HCO3 mmol/L VBG O2 Saturation % VBG Base Excess mEq/L Barometric Pressure mm/Hg Sodium 141 (136-145) mmol/L Potassium 4.4 (3.5-5.1) mmol/L Chloride 114 H (98-107) mmol/L Carbon Dioxide 21 (21-32) mmol/L Anion Gap 6.0 (3-11) BUN 9 (7-18) mg/dl Creatinine 0.77 (0.6-1.2) mg/dl Est Cr Clr Drug Dosing 94.9 ml/min Est GFR ( Amer) 103.6 Est GFR (Non-Af Amer) 89.4 BUN/Creatinine Ratio 12.0 (10-20) Glucose 105 H (70-99) mg/dl POC Glucose (70-99) mg/dl Lactate (0.4-2.0) mmol/L Calcium 7.1 L (8.5-10.1) mg/dl Ionized Calcium (1.12-1.32) mmol/L Phosphorus (2.5-4.9) mg/dl Magnesium (1.8-2.4) mg/dl Total Bilirubin 0.2 (0.2-1) mg/dl Direct Bilirubin (0-0.2) mg/dl AST 71 H (15-37) U/L ALT 58 (12-78) U/L Alkaline Phosphatase 178 H (45-117) U/L Troponin I (0-0.045) ng/ml NT-Pro-B Natriuret Pep (0-900) pg/ml Total Protein 4.4 L (6.4-8.2) gm/dl Albumin 1.0 L (3.4-5.0) gm/dl Globulin 3.4 (2.5-4.0) gm/dl Albumin/Globulin Ratio 0.3 L (0.9-2) Procalcitonin (0-0.5) ng/ml Random Cortisol mcg/dl Nasal Screen MRSA (PCR) (Negative) Blood Type A Positive Antibody Screen NEGATIVE Crossmatch See Detail 11/14/19 11/14/19 11/14/19 Range/Units 18:05 18:05 18:05 WBC (4.8-10.8) K/uL RBC (4.2-5.4) M/uL Hgb (12.0-16.0) g/dL Hct (37-47) % MCV (80-100) fL MCH (25-34) pg MCHC (32-36) g/dL RDW Std Deviation (36.4-46.3) fL RDW Coeff of Marcelina (11.5-14.5) % Plt Count (130-400) K/uL MPV (7.4-10.4) fL Immature Gran % (Auto) % Neut % (Auto) % Lymph % (Auto) % [place] % (Auto) % Eos % (Auto) % Baso % (Auto) % Neut # (Auto) (1.4-6.5) K/uL Lymph # (Auto) (1.2-3.4) K/uL [place] # (Auto) (0.11-0.59) K/uL Eos # (Auto) (0-0.5) K/uL Baso # (Auto) (0-0.2) K/uL Immature Gran # (Auto) (0.00-0.02) K/uL Polychromasia PT (9.0-12.0) Seconds INR (0.9-1.1) Heparin Anti-Xa, LM Wt (< 0.10) IU/ML VBG pH (7.36-7.41) VBG pCO2 (38-50) mmHg VBG pO2 mmHg VBG HCO3 mmol/L VBG O2 Saturation % VBG Base Excess mEq/L Barometric Pressure mm/Hg Sodium (136-145) mmol/L Potassium (3.5-5.1) mmol/L Chloride (98-107) mmol/L Carbon Dioxide (21-32) mmol/L Anion Gap (3-11) BUN (7-18) mg/dl Creatinine (0.6-1.2) mg/dl Est Cr Clr Drug Dosing ml/min Est GFR ( Amer) Est GFR (Non-Af Amer) BUN/Creatinine Ratio (10-20) Glucose (70-99) mg/dl POC Glucose (70-99) mg/dl Lactate 2.2 H* (0.4-2.0) mmol/L Calcium (8.5-10.1) mg/dl Ionized Calcium 1.06 L (1.12-1.32) mmol/L Phosphorus (2.5-4.9) mg/dl Magnesium (1.8-2.4) mg/dl Total Bilirubin (0.2-1) mg/dl Direct Bilirubin (0-0.2) mg/dl AST (15-37) U/L ALT (12-78) U/L Alkaline Phosphatase (45-117) U/L Troponin I < 0.015 (0-0.045) ng/ml NT-Pro-B Natriuret Pep 659 (0-900) pg/ml Total Protein (6.4-8.2) gm/dl Albumin (3.4-5.0) gm/dl Globulin (2.5-4.0) gm/dl Albumin/Globulin Ratio (0.9-2) Procalcitonin (0-0.5) ng/ml Random Cortisol mcg/dl Nasal Screen MRSA (PCR) (Negative) Blood Type Antibody Screen Crossmatch 11/14/19 11/14/19 11/14/19 Range/Units 18:05 18:05 18:05 WBC (4.8-10.8) K/uL RBC (4.2-5.4) M/uL Hgb (12.0-16.0) g/dL Hct (37-47) % MCV (80-100) fL MCH (25-34) pg MCHC (32-36) g/dL RDW Std Deviation (36.4-46.3) fL RDW Coeff of Marcelina (11.5-14.5) % Plt Count (130-400) K/uL MPV (7.4-10.4) fL Immature Gran % (Auto) % Neut % (Auto) % Lymph % (Auto) % [place] % (Auto) % Eos % (Auto) % Baso % (Auto) % Neut # (Auto) (1.4-6.5) K/uL Lymph # (Auto) (1.2-3.4) K/uL [place] # (Auto) (0.11-0.59) K/uL Eos # (Auto) (0-0.5) K/uL Baso # (Auto) (0-0.2) K/uL Immature Gran # (Auto) (0.00-0.02) K/uL Polychromasia PT (9.0-12.0) Seconds INR (0.9-1.1) Heparin Anti-Xa, LM Wt 1.29 (< 0.10) IU/ML VBG pH (7.36-7.41) VBG pCO2 (38-50) mmHg VBG pO2 mmHg VBG HCO3 mmol/L VBG O2 Saturation % VBG Base Excess mEq/L Barometric Pressure mm/Hg Sodium (136-145) mmol/L Potassium (3.5-5.1) mmol/L Chloride (98-107) mmol/L Carbon Dioxide (21-32) mmol/L Anion Gap (3-11) BUN (7-18) mg/dl Creatinine (0.6-1.2) mg/dl Est Cr Clr Drug Dosing ml/min Est GFR ( Amer) Est GFR (Non-Af Amer) BUN/Creatinine Ratio (10-20) Glucose (70-99) mg/dl POC Glucose (70-99) mg/dl Lactate (0.4-2.0) mmol/L Calcium (8.5-10.1) mg/dl Ionized Calcium (1.12-1.32) mmol/L Phosphorus (2.5-4.9) mg/dl Magnesium (1.8-2.4) mg/dl Total Bilirubin (0.2-1) mg/dl Direct Bilirubin (0-0.2) mg/dl AST (15-37) U/L ALT (12-78) U/L Alkaline Phosphatase (45-117) U/L Troponin I (0-0.045) ng/ml NT-Pro-B Natriuret Pep (0-900) pg/ml Total Protein (6.4-8.2) gm/dl Albumin (3.4-5.0) gm/dl Globulin (2.5-4.0) gm/dl Albumin/Globulin Ratio (0.9-2) Procalcitonin 0.20 (0-0.5) ng/ml Random Cortisol 23.99 mcg/dl Nasal Screen MRSA (PCR) (Negative) Blood Type Antibody Screen Crossmatch 11/14/19 Range/Units 17:20 WBC (4.8-10.8) K/uL RBC (4.2-5.4) M/uL Hgb (12.0-16.0) g/dL Hct (37-47) % MCV (80-100) fL MCH (25-34) pg MCHC (32-36) g/dL RDW Std Deviation (36.4-46.3) fL RDW Coeff of Marcelina (11.5-14.5) % Plt Count (130-400) K/uL MPV (7.4-10.4) fL Immature Gran % (Auto) % Neut % (Auto) % Lymph % (Auto) % [place] % (Auto) % Eos % (Auto) % Baso % (Auto) % Neut # (Auto) (1.4-6.5) K/uL Lymph # (Auto) (1.2-3.4) K/uL [place] # (Auto) (0.11-0.59) K/uL Eos # (Auto) (0-0.5) K/uL Baso # (Auto) (0-0.2) K/uL Immature Gran # (Auto) (0.00-0.02) K/uL Polychromasia PT (9.0-12.0) Seconds INR (0.9-1.1) Heparin Anti-Xa, LM Wt (< 0.10) IU/ML VBG pH (7.36-7.41) VBG pCO2 (38-50) mmHg VBG pO2 mmHg VBG HCO3 mmol/L VBG O2 Saturation % VBG Base Excess mEq/L Barometric Pressure mm/Hg Sodium (136-145) mmol/L Potassium (3.5-5.1) mmol/L Chloride (98-107) mmol/L Carbon Dioxide (21-32) mmol/L Anion Gap (3-11) BUN (7-18) mg/dl Creatinine (0.6-1.2) mg/dl Est Cr Clr Drug Dosing ml/min Est GFR ( Amer) Est GFR (Non-Af Amer) BUN/Creatinine Ratio (10-20) Glucose (70-99) mg/dl POC Glucose (70-99) mg/dl Lactate (0.4-2.0) mmol/L Calcium (8.5-10.1) mg/dl Ionized Calcium (1.12-1.32) mmol/L Phosphorus (2.5-4.9) mg/dl Magnesium (1.8-2.4) mg/dl Total Bilirubin (0.2-1) mg/dl Direct Bilirubin (0-0.2) mg/dl AST (15-37) U/L ALT (12-78) U/L Alkaline Phosphatase (45-117) U/L Troponin I (0-0.045) ng/ml NT-Pro-B Natriuret Pep (0-900) pg/ml Total Protein (6.4-8.2) gm/dl Albumin (3.4-5.0) gm/dl Globulin (2.5-4.0) gm/dl Albumin/Globulin Ratio (0.9-2) Procalcitonin (0-0.5) ng/ml Random Cortisol mcg/dl Nasal Screen MRSA (PCR) Negative (Negative) Blood Type Antibody Screen Crossmatch Medications Administered Current Inpatient Medications Acetaminophen (Acetaminophen 325 Mg Tab) 650 mg PO Q4H PRN PRN Reason: Pain or Fever Stop: 12/10/19 16:09 Al Hydrox/Mg Hydrox/Simethicone (Aluminum/Magnesium Susp 30 Ml Udc) 15 ml PO Q4H PRN PRN Reason: Dyspepsia Stop: 12/10/19 16:09 Aspirin (Aspirin 81 Mg Ectab) 81 mg PO QAM [facility] Stop: 12/11/19 08:59 Last Admin: 11/15/19 09:11 Dose: Not Given Documented by: Atorvastatin Calcium (Atorvastatin 40 Mg Tab) 40 mg PO PM [facility] Stop: 12/10/19 20:59 Last Admin: 11/14/19 22:08 Dose: Not Given Documented by: Bisacodyl (Bisacodyl 5 Mg Tabec) 5 mg PO BID PRN PRN Reason: Constipation Stop: 12/10/19 16:14 Calamine/Phenol (Menthol-Zinc Oxide 360 Appln/120 Gm Tube) 1 appln EXT TID PRN PRN Reason: Skin Irritation Stop: 12/10/19 16:09 Enoxaparin Sodium (Enoxaparin 80 Mg/0.8 Ml Syr) 80 mg SQ Q12 [facility] Stop: 12/12/19 10:59 Last Admin: 11/14/19 21:40 Dose: 80 mg Documented by: Fluoxetine HCl (Fluoxetine Hcl 20 Mg Cap) [facility] Stop: 12/11/19 08:59 Last Admin: 11/15/19 09:12 Dose: Not Given Documented by: Gabapentin (Gabapentin 100 Mg Cap) 100 mg PO PM@2030 [facility] Stop: 12/10/19 20:29 Last Admin: 11/14/19 22:08 Dose: Not Given Documented by: Norepinephrine Bitartrate 8 mg (/ Dextrose) 508 mls @ 9.315 mls/hr IV .Q24H [facility]; Protocol Stop: 12/14/19 22:14 Last Titration: 11/15/19 07:14 Dose: 0.03 mcg/kg/min, 9.3 mls/hr Documented by: Parenteral Electrolytes (Normosol-R) 1,000 mls @ 125 mls/hr IV .Q8H [facility] Stop: 12/14/19 23:14 Last Admin: 11/15/19 06:26 Dose: 125 mls/hr Documented by: Sodium Chloride (Nss) 250 mls @ 15 mls/hr IV .[id number] PRN PRN Reason: For Transfusion Stop: 11/15/19 15:27 Sodium Chloride (Nss) 250 mls @ 15 mls/hr IV .[id number] PRN PRN Reason: For Transfusion Stop: 11/15/19 17:31 Amiodarone HCl/Dextrose (Nexterone / D5w) 360 mg in 200 mls @ 33.333 mls/hr IV ONE ONE Stop: 11/15/19 14:23 Last Admin: 11/15/19 09:09 Dose: 33.3 mls/hr Documented by: Amiodarone HCl/Dextrose (Nexterone / D5w) 360 mg in 200 mls @ 16.667 mls/hr IV .Q12H [facility] Stop: 12/15/19 14:44 Sodium Chloride (Nss) 250 mls @ 15 mls/hr IV .[id number] PRN PRN Reason: For Transfusion Stop: 11/15/19 20:20 Loperamide HCl (Loperamide Hcl 2 Mg Cap) 2 mg PO TID PRN PRN Reason: Diarrhea Stop: 12/10/19 16:21 Metoprolol Succinate (Metoprolol Succ 25mg Ext Rel Tab) 25 mg PO QPM [facility] Stop: 12/12/19 20:59 Last Admin: 11/14/19 21:31 Dose: Not Given Documented by: Metoprolol Tartrate (Metoprolol Tartrate 1 Mg/Ml Vial) 5 mg IV Q4 PRN PRN Reason: sbp> 185, dbp >95, HR >120 Stop: 12/10/19 16:09 Metoprolol Tartrate (Metoprolol Tartrate 25 Mg Tab) 12.5 mg PO Q8 [facility] Stop: 12/11/19 20:59 Last Admin: 11/12/19 08:06 Dose: 12.5 mg Documented by: Mirtazapine (Mirtazapine Tab 15 Mg Tab) 15 mg PO PM@2030 [facility] Stop: 12/10/19 20:29 Last Admin: 11/14/19 22:08 Dose: Not Given Documented by: Multivitamins (Multivitamin Tab) 1 tab PO DAILY [facility] Stop: 12/11/19 08:59 Last Admin: 11/15/19 09:11 Dose: Not Given Documented by: Ondansetron HCl (Ondansetron 4 Mg Od Tab) 4 mg PO Q6H PRN PRN Reason: Nausea Stop: 12/10/19 16:18 Ondansetron HCl (Ondansetron Inj 2 Mg/Ml 2 Ml Vial) 4 mg IV Q6H PRN PRN Reason: Nausea Stop: 12/10/19 16:09 Last Admin: 11/14/19 21:39 Dose: 4 mg Documented by: Pantoprazole Sodium ([facility]oprazole 40 Mg Tab) [facility] Stop: 12/11/19 08:59 Last Admin: 11/15/19 09:11 Dose: Not Given Documented by: Thiamine HCl (Thiamine Hcl 100 Mg Tab) [facility] Stop: 12/11/19 08:59 Last Admin: 11/15/19 09:12 Dose: Not Given Documented by: Critical Care Time Critical Care Time: Yes Total Critical Care Time: 95 I have personally spent 95 minutes of critical care time in the direct management of this patient. This is a life/limb threatening event. This includes time spent evaluating patient, direct bedside care, chart review, placing orders, interpretation of diagnostic studies, discussion with consultants, patient, and/or family members regarding treatment decisions, as well as other required patient management activities. This time is exclusive of all separately billable procedures, and teaching time and separate from and in addition to any other critical care service time. Resident Activity Tracking Resident Involvement: Resident Care Provided Care Provided: Adult Hospital Medicine (Critical Care) (1) UTI (urinary tract infection) Hematuria presence: with hematuria Urinary tract infection type: acute cystitis Qualified Code(s): N30.01 - Acute cystitis with hematuria
[2019-11-15] MEDS ORDERED: AMIODARONE / D5W 150 MG/100 ML BAG IV STA (08:24)
[2019-11-15] MEDS ORDERED: STAT IV Infusion **Titration per Protocol STA (08:24)
[2019-11-15] MEDS ORDERED: AMIODARONE IV BOLUS & DRIP IV STA (08:24)
[2019-11-15] MEDS ORDERED: AMIODARONE / D5W 360 MG/200 ML BAG IV ONE (08:24)
[2019-11-15] MEDS ORDERED: 0.2 MICRON FILTER SET 1 EA IV ONE (09:00)
[2019-11-15] MEDS: ASPIRIN 81 MG ECTAB PO SCH (09:11)
[2019-11-15] MEDS: PANTOprazole 40 MG TAB PO SCH (09:11)
[2019-11-15] MEDS: SACCHAROMYCES BOULARDII 250 MG CAP PO SCH (09:11)
[2019-11-15] MEDS: MULTIVITAMIN TAB PO SCH (09:11)
[2019-11-15] MEDS: POTASSIUM CHLORIDE 20 MEQ TABCR PO SCH (09:11)
[2019-11-15] MEDS: FLUOXETINE HCL 20 MG CAP PO SCH (09:12)
[2019-11-15] MEDS: THIAMINE HCL 100 MG TAB PO SCH (09:12)
--- NOTE | 2019-11-15 10:08 | Billing Data ---
Date of Service November 15, 2019 Coding Level of Care Code Critical Care 1st 30-74 mins Time Spent (min) 55
--- NOTE | 2019-11-15 10:09 | Billing Data ---
Date of Service November 14, 2019 Coding Level of Care Code Critical Care 1st 30-74 mins Time Spent (min) 70
--- NOTE | 2019-11-15 10:32 | XCELERA ---
[id number]
[2019-11-15] MEDS ORDERED: CEFAZOLIN 1000MG 1,000 MG/7.5 ML SYR IV ONE (11:08)
--- NOTE | 2019-11-15 11:08 | Consultation ---
Date of Consultation November 15, 2019 Assessment & Plan (1) Pulmonary embolism: Pt with PE, and now with severe anemia d/t acute bleeding and coagulopathy. AC stopped currently. Recommend IVC filter insertion by Dr Covarrubias. Planning for later today. Will discuss with her POA for consent. Patient was seen, examined, and chart reviewed. Agree with exam and treatment plan of the Vascular PA. I have discussed the risks options and benefits of the procedure with the patient's mother. The patient's mother understands the risks options and benefits and agrees to the procedure. (2) Anemia: see above Anemia type: unspecified type Qualified Code(s): D64.9 - Anemia, unspecified History of Present Illness Reason for Consultation: PE, iliac/psoas bleed, anemia Attending Physician: Kyrie Cordero History of Present Illness 49 yo f with multiple medical problems, including crohn's disease, GERD, hx of CVA in 05/2019 and subsequent R sided hemiplegia, admitted with PE and severe sinus tachycardia, seen in consultation today after her hgb decreased to 6.4 this AM and AC was stopped. Pt unable to verbalize anything at this time d/t somnolence and hepatic encephalopathy. According to pt chart, pt found to have acute bleeding in R iliac and psoas muscles on CT this morning. INR is elevated at 3, but platelets are normal. Unknown if previous hx of DVT/PE in past. Allergies Allergy/AdvReac Type Severity Reaction Status Date / Time Sulfa (Sulfonamide Allergy Intermediate RASH TO Verified 11/10/19 12:36 Antibiotics) FACE Home Medications Home Medications Medication Instructions Recorded Confirmed Type Calmoseptine 1 applic TOPICAL TID PRN 11/02/19 11/10/19 History Fleet Enema 118 ml FL DAILY PRN 11/02/19 11/10/19 History Lactobacillus acidoph-L.bulgar 1 tab PO QDL 11/02/19 11/10/19 History [Floranex] acetaminophen [Tylenol] 325 mg PO QID PRN 11/02/19 11/10/19 History aspirin 81 mg PO QAM 11/02/19 11/10/19 History atorvastatin 40 mg PO PM 11/02/19 11/10/19 History bisacodyl 5 mg FL BID PRN 11/02/19 11/10/19 History bisacodyl 20 mg PO HS 11/02/19 11/10/19 History fluoxetine 20 mg PO QAM 11/02/19 11/10/19 History gabapentin 100 mg PO PM 11/02/19 11/10/19 History loperamide 2 mg PO TID 11/02/19 11/10/19 History magnesium hydroxide [Milk Of 30 ml PO DAILY PRN 11/02/19 11/10/19 History Magnesia Concentrated] mirtazapine 15 mg PO PM 11/02/19 11/10/19 History ondansetron HCl [Zofran] 4 mg PO Q6H PRN 11/02/19 11/10/19 History pantoprazole 20 mg PO QAM 11/02/19 11/10/19 History polyethylene glycol 3350 [Miralax] 17 g PO ONCE 11/02/19 11/10/19 History thiamine HCl (vitamin B1) 100 mg PO QAM 11/02/19 11/10/19 History Saccharomyces boulardii [Florastor] 250 mg PO BID #20 cap 11/06/19 11/10/19 Rx cefdinir 300 mg PO BID 7 Days #14 cap 11/06/19 11/10/19 Rx enoxaparin 40 mg SUBCUT DAILY 11/06/19 11/10/19 History metoprolol tartrate 12.5 mg PO BID 11/06/19 11/10/19 History multivitamin 1 tab PO DAILY 11/06/19 11/10/19 History Patient History Medical History Aphasia Cerebral infarct Constipation Crohn's disease Dysphagia GERD (gastroesophageal reflux disease) Hemiplegia and hemiparesis following cerebral infarction affecting right dominant side Iron deficiency anemia Major depressive disorder Non-traumatic intracranial hemorrhage correction resident [facility] Other secondary thrombocytopenia Retention of urine Status post placement of implantable loop recorder Toxic epidermal necrolysis Unspecified severe protein-calorie malnutrition Social History Smoking Status: Former smoker Smoking End Date: years ago; Hx Alcohol Use: No Hx Substance Use: No Preferred Language: Frisian Communication Ability: Effective Specialty Department Supervisor Required: No Beliefs That Will Affect Care: None Current Living Situation: Group Home Current Living Situation Comment: [facility] resident Other Information That Helps Us Care for You: No Feels Safe at Home: Yes Safety Concerns: Feels Safe At This Time Review of Systems Review of Systems: Unobtainable due to cognitive status Physical Exam Constitutional: + ill appearing, + disheveled, + lethargic and + edematous (general); + uncooperative and not in distress Neck: normal visual inspection (R central line noted) Respiratory: normal respiratory effort; no respiratory distress Auscultation: + diminished lung sounds and + crackles (bases) Cardiovascular: Rate/Rhythm: + tachycardic Vessels: posterior tibial pulses present, dorsalis pedis pulses present, brachial pulses present and radial pulses present; + abnormal peripheral pulses Extremities: normal capillary refill and + edema (+4 BLE, BUE) Gastrointestinal (Abdomen): Inspection/Auscultation: normal bowel sounds Percussion/Palpation: abdomen nontender Skin: no rashes, warm and dry Neurologic: + focal motor deficit, + confused and + obtunded; + does not move all extremities Psychiatric: Orientation: + not alert and + not oriented x 3 Results & Data ([facility]) Vital Signs (Past 12 Hours) Vital Signs Temp Pulse Resp BP Pulse Ox 11/15/19 10:33 37.1 C 103 H 14 109/71 99 11/15/19 09:57 37.3 C 118 H 18 113/67 99 11/15/19 09:40 37.3 C 20 99/73 L 100 11/15/19 09:04 36.9 C 116 H 14 102/74 98 11/15/19 08:54 37.0 C 122 H 15 102/74 95 11/15/19 08:26 36.9 C 127 H 18 113/69 99 11/15/19 07:21 36.9 C 106 H 14 100/76 99 11/15/19 07:06 37.1 C 127 H 13 101/73 100 11/15/19 06:50 37.2 C 129 H 17 104/64 98 11/15/19 06:30 87 14 99 11/15/19 06:27 89 16 98/69 L 98 11/15/19 06:25 91 H 17 121/62 98 11/15/19 05:57 93 H 19 94/59 L 95 11/15/19 05:45 117 H 15 98 11/15/19 05:42 113 H 14 83/67 L 98 11/15/19 05:30 90 18 98 11/15/19 05:27 92 H 19 96/55 L 97 11/15/19 05:15 87 19 99 11/15/19 05:12 97 H 13 97/64 L 99 11/15/19 05:00 105 H 16 99 11/15/19 04:57 86 19 95/65 L 100 11/15/19 04:45 92 H 15 97 11/15/19 04:42 99 H 17 101/59 L 96 11/15/19 04:30 104 H 14 99 11/15/19 04:27 126 H 15 94/60 L 98 11/15/19 04:15 124 H 14 97 11/15/19 04:12 121 H 15 86/61 L 96 11/15/19 04:00 124 H 15 95 11/15/19 03:57 124 H 17 89/63 L 95 11/15/19 03:42 86 16 96/60 L 97 11/15/19 03:39 37.2 C 11/15/19 03:30 91 H 16 99 11/15/19 03:27 104 H 16 95/63 L 11/15/19 03:15 97 H 18 97 11/15/19 03:11 91 H 17 104/58 L 98 11/15/19 03:00 95 H 16 98 11/15/19 02:56 92 H 16 101/64 98 11/15/19 02:45 133 H 14 99 11/15/19 02:41 124 H 16 102/61 97 11/15/19 02:30 123 H 14 98 11/15/19 02:26 117 H 14 90/63 L 99 11/15/19 02:15 126 H 15 97 11/15/19 02:11 126 H 17 88/63 L 97 11/15/19 02:00 130 H 16 96 11/15/19 01:57 133 H 16 101/63 97 11/15/19 01:45 94 H 17 99 11/15/19 01:41 99 H 16 118/66 100 11/15/19 01:30 95 H 15 100 11/15/19 01:26 130 H 15 94/71 L 99 11/15/19 01:15 124 H 16 98 11/15/19 01:11 132 H 12 99/66 L 100 11/15/19 01:00 124 H 13 99 11/15/19 00:56 131 H 14 97/64 L 99 11/15/19 00:45 133 H 17 100 11/15/19 00:41 126 H 13 95/69 L 100 11/15/19 00:30 126 H 14 100 11/15/19 00:26 130 H 13 97/69 L 100 11/15/19 00:15 118 H 17 100 11/15/19 00:12 128 H 18 92/64 L 90 11/15/19 00:00 36.6 C 96 H 15 97 11/14/19 23:57 94 H 14 96/61 L 11/14/19 23:45 95 H 14 98 11/14/19 23:41 94 H 16 100/64 98 11/14/19 23:33 100 H 11/14/19 23:30 100 H 14 98 11/14/19 23:27 96 H 16 84/72 L 100 11/14/19 23:15 103 H 16 98 11/14/19 23:12 96 H 13 78/67 L 100 11/14/19 23:00 95 H 15 100 11/14/19 22:57 103 H 15 58/28 L 95
[2019-11-15] MEDS ORDERED: LIDOCAINE HCL 1% 20 ML VIAL ONE (11:26)
[2019-11-15] MEDS ORDERED: MIDAZOLAM HCL 1 MG/ML 2ML VIAL ONE (11:40)
[2019-11-15] MEDS ORDERED: LIDOCAINE HCL 2% 2 ML VIAL/AMP(20MG/ML) INFIL ONE (11:40)
[2019-11-15] MEDS ORDERED: PROPOFOL IV EMULSION 10 MG/ML 20 ML VIAL IV ONE (11:40)
[2019-11-15] MEDS ORDERED: ONDANSETRON INJ 2 MG/ML 2 ML VIAL ONE (11:40)
[2019-11-15] MEDS ORDERED: fentaNYL citrate 100 MCG/2 ML VIAL ONE (11:41)
--- NOTE | 2019-11-15 12:05 | Anesthesiology Consultation ---
Date of Service November 15, 2019 Assessment & Plan (1) Encounter for pre-operative examination: Chart Review Chart Review: Acceptable Risk for Surgery and Patient NOT seen in Pre Admission Testing covid negative. Patient's mother consented on patient's behalf as patient is unable to do so herself. She is very high risk and plan is for local only with anesthesia monitoring given her instability. She has received 1 unit PRBC today and given her elevated INR she was given dose of vitamin K and is on her third unit of FFP. Consults Requested none History Surgery Operation Date: 11/15/19 11:40 Proposed Procedures p Inferior Vena Cava Filter Placement - Bear Covarrubias MD Height/Weight Height: 5 ft 7 in Weight: 84.5 kg Allergies Allergy/AdvReac Type Severity Reaction Status Date / Time Sulfa (Sulfonamide Allergy Intermediate RASH TO Verified 11/10/19 12:36 Antibiotics) FACE Medications Home Medications Medication Instructions Recorded Confirmed Last Taken Calmoseptine 1 applic TOPICAL TID PRN 11/02/19 11/10/19 11/05/19 Fleet Enema 118 ml DC DAILY PRN 11/02/19 11/10/19 Unknown Lactobacillus acidoph-L.bulgar 1 tab PO QDL 11/02/19 11/10/19 11/09/19 [Floranex] acetaminophen [Tylenol] 325 mg PO QID PRN 11/02/19 11/10/19 11/08/19 aspirin 81 mg PO QAM 11/02/19 11/10/19 11/08/19 08:00 atorvastatin 40 mg PO PM 11/02/19 11/10/19 11/09/19 bisacodyl 5 mg DC BID PRN 11/02/19 11/10/19 Unknown bisacodyl 20 mg PO HS 11/02/19 11/10/19 11/08/19 fluoxetine 20 mg PO QAM 11/02/19 11/10/19 11/09/19 gabapentin 100 mg PO PM 11/02/19 11/10/19 11/09/19 loperamide 2 mg PO TID 11/02/19 11/10/19 11/08/19 12:30 magnesium hydroxide [Milk Of 30 ml PO DAILY PRN 11/02/19 11/10/19 Unknown Magnesia Concentrated] mirtazapine 15 mg PO PM 11/02/19 11/10/19 11/09/19 ondansetron HCl [Zofran] 4 mg PO Q6H PRN 11/02/19 11/10/19 11/02/19 12:37 pantoprazole 20 mg PO QAM 11/02/19 11/10/19 11/10/19 polyethylene glycol 3350 [Miralax] 17 g PO ONCE 11/02/19 11/10/19 11/08/19 thiamine HCl (vitamin B1) 100 mg PO QAM 11/02/19 11/10/19 11/06/19 Saccharomyces boulardii [Florastor] 250 mg PO BID #20 cap 11/06/19 11/10/19 11/09/19 cefdinir 300 mg PO BID 7 Days #14 cap 11/06/19 11/10/19 11/09/19 enoxaparin 40 mg SUBCUT DAILY 11/06/19 11/10/19 10/25/19 metoprolol tartrate 12.5 mg PO BID 11/06/19 11/10/19 10/30/19 13:00 multivitamin 1 tab PO DAILY 11/06/19 11/10/19 11/09/19 Active Medications Generic Name Dose Route Start Last Admin Trade Name Freq PRN Reason Stop Dose Admin Aspirin 81 mg 11/11/19 09:00 11/15/19 09:11 Aspirin 81 Mg Ectab PO 12/11/19 08:59 Not Given QAM HARLEEN Atorvastatin Calcium 40 mg 11/10/19 21:00 11/14/19 22:08 Atorvastatin 40 Mg Tab PO 12/10/19 20:59 Not Given PM HARLEEN Enoxaparin Sodium 80 mg 11/12/19 11:00 11/14/19 21:40 Enoxaparin 80 Mg/0.8 Ml Syr SQ 12/12/19 10:59 80 mg Q12 HARLEEN Administration Fluoxetine HCl 20 mg 11/11/19 09:00 11/15/19 09:12 Fluoxetine Hcl 20 Mg Cap PO 12/11/19 08:59 Not Given QAM HARLEEN Gabapentin 100 mg 11/10/19 20:30 11/14/19 22:08 Gabapentin 100 Mg Cap PO 12/10/19 20:29 Not Given PM@2030 HARLEEN Norepinephrine Bitartrate 8 mg 508 mls @ 9.315 mls/hr 11/14/19 22:15 11/15/19 07:14 / Dextrose IV 12/14/19 22:14 0.03 mcg/kg/min .Q24H HARLEEN 9.3 mls/hr Titration Protocol 0.03 MCG/KG/MIN Parenteral Electrolytes 1,000 mls @ 125 mls/hr 11/14/19 23:15 11/15/19 06:26 Normosol-R IV 12/14/19 23:14 125 mls/hr .Q8H HARLEEN Administration Amiodarone HCl/Dextrose 360 mg in 200 mls @ 33.333 mls/hr 11/15/19 08:24 11/15/19 09:09 Nexterone / D5w IV 11/15/19 14:23 33.3 mls/hr ONE ONE Administration Metoprolol Succinate 25 mg 11/12/19 21:00 11/14/19 21:31 Metoprolol Succ 25mg Ext Rel Tab PO 12/12/19 20:59 Not Given QPM HARLEEN Metoprolol Tartrate 12.5 mg 11/11/19 21:00 11/12/19 08:06 Metoprolol Tartrate 25 Mg Tab PO 12/11/19 20:59 12.5 mg Q8 HARLEEN Administration Mirtazapine 15 mg 11/10/19 20:30 11/14/19 22:08 Mirtazapine Tab 15 Mg Tab PO 12/10/19 20:29 Not Given PM@2030 HARLEEN Multivitamins 1 tab 11/11/19 09:00 11/15/19 09:11 Multivitamin Tab PO 12/11/19 08:59 Not Given DAILY [facility] Ondansetron HCl 4 mg 11/10/19 16:10 11/14/19 21:39 Ondansetron Inj 2 Mg/Ml 2 Ml Vial IV 12/10/19 16:09 4 mg Q6H PRN Administration Nausea Pantoprazole Sodium 40 mg 11/11/19 09:00 11/15/19 09:11 Pantoprazole 40 Mg Tab PO 12/11/19 08:59 Not Given QAM HARLEEN Thiamine HCl 100 mg 11/11/19 09:00 11/15/19 09:12 Thiamine Hcl 100 Mg Tab PO 12/11/19 08:59 Not Given QAM HARLEEN Past Medical History Medical History (Updated 11/15/19 @ 12:02 by Nishant Chou MD) Anemia Aphasia Cerebral infarct Constipation Crohn's disease Dysphagia GERD (gastroesophageal reflux disease) Hemiplegia and hemiparesis following cerebral infarction affecting right dominant side Hepatic steatosis Iron deficiency anemia Major depressive disorder Non-traumatic intracranial hemorrhage [facility] Other secondary thrombocytopenia Pulmonary embolism Retention of urine Status post placement of implantable loop recorder Toxic epidermal necrolysis Unspecified severe protein-calorie malnutrition Past Surgical History colonoscopy/EGD recently without issue. Presence of cardiac implant and grafts. Social History Smoking Status: Former smoker Smoking End Date: years ago Hx Alcohol Use: No Hx Substance Use: No Physical Exam Vital Signs Last Vital Signs Temp 37.2 C 11/15/19 11:38 Pulse 73 11/15/19 11:38 Resp 12 11/15/19 11:38 BP 94/63 L 11/15/19 11:38 Pulse Ox 98 11/15/19 11:38 Testing Laboratory Results 11/15/19 04:26 11/15/19 04:26 PT 29.7 Seconds (9.0-12.0) H 11/15/19 04:26 INR 3.0 (0.9-1.1) H 11/15/19 04:26 APTT 52.1 Seconds (21.0-31.0) H* 11/12/19 09:41 Blood Type A Positive 11/14/19 18:05 Antibody Screen NEGATIVE 11/14/19 18:05 11/12/19 08:44 Aerobic Blood Culture - Preliminary Blood No growth in Aerobic bottle after 48 hours. Anaerobic Blood Culture - Preliminary No growth in Anaerobic bottle after 48 hours. 11/12/19 06:12 Aerobic Blood Culture - Preliminary Blood No growth in Aerobic bottle after 48 hours. Anaerobic Blood Culture - Preliminary No growth in Anaerobic bottle after 48 hours. 11/10/19 12:27 Aerobic Blood Culture - Preliminary Blood No growth in Aerobic bottle after 48 hours. Anaerobic Blood Culture - Preliminary Corynebacterium species 11/10/19 13:17 Aerobic Blood Culture - Preliminary Blood No growth in Aerobic bottle after 48 hours. Anaerobic Blood Culture - Final 11/15/19 05:16 POC Glucose 119 H Electrocardiogram Date: 11/14/19 Findings: + ST @ Nonspecific T wave abnormality. Chest X-Ray Date: 11/14/19 XR chest 1V portable CLINICAL HISTORY: Line placement COMPARISON STUDY: 11/14/2019 FINDINGS: The cardiac and mediastinal contours remain stable. There is been interval placement of a right internal jugular central venous catheter. The tip projects over the atriocaval junction. There is no pneumothorax. There are bilateral pleural effusions with hazy basilar opacities likely representing compressive atelectasis.[ IMPRESSION: Interval placement of a right internal jugular central venous catheter. No evidence of pneumothorax Echocardiogram Date: 11/15/19 Normal LV zie and function. EF 55-60%. No RWMA. Mild LVH No valvular regurg.
[2019-11-15 12:27] LABS: Hematocrit (blood only) 17.4 % (37-47); Hemoglobin 5.9 g/dL (12.0-16.0)
[2019-11-15] MEDS ORDERED: VISIPAQUE IV ONE (12:44)
--- NOTE | 2019-11-15 12:50 | Post Operative Brief Note ---
Immediate Post Op Note v1 Date of Surgery November 15, 2019 Pre & Post Diagnosis Operation Date: 11/15/19 11:40 Pre-Op Diagnosis: Acute Deep Vein Thrombosis and Pulmonary Emboli, Contra-indication for Anticoagulation Post-Op Diagnosis: Acute Deep Vein Thrombosis and Pulmonary Emboli, Contra-indication for Anticoagulation I identified the patient and participated in the time-out.: Yes Procedure Operation Date: 11/15/19 11:40 Actual Procedures p Inferior Vena Cava Filter Placement, Right Femoral Approach, Ultrasound for Localization, Fluoroscopy for Positioning(Right) - Bear Covarrubias MD Surgeon Bear Covarrubias MD Director Housekeeping MD Analy Estimated Blood Loss 0 Findings Consistent with Post-Op Diagnosis Anesthesia Type Local Complications none Disposition Accompanied Patient To Recovery: No Disposition: Recovery Room
--- NOTE | 2019-11-15 12:56 | Operative Report ---
Post Operative Report Pre & Post Diagnosis Operation Date: 11/15/19 11:40 Pre-Op Diagnosis: Acute Deep Vein Thrombosis and Pulmonary Emboli, Contra-indication for Anticoagulation Post-Op Diagnosis: Acute Deep Vein Thrombosis and Pulmonary Emboli, Contra-indication for A nticoagulation I identified the patient and participated in the time-out.: Yes Procedure Operation Date: 11/15/19 11:40 Actual Procedures p Inferior Vena Cava Filter Placement, Right Femoral Approach, Ultrasound for Localization, Fluoroscopy for Positioning(Right) - Bear Covarrubias MD Surgeon Bear Covarrubias MD Director Employee Safety And Health MD Analy Estimated Blood Loss 0 Findings Consistent with Post-Op Diagnosis Specimens none Anesthesia Type General Complications none Disposition Disposition: Surgical ICU Indications This is a 49 yo female who has dvt and pe and has a contraindication for heparin. Filter was recommended. Description of Procedure The patient was brought to the angio suite and placed in the supine position. The patient was identified and a timeout performed. The right groin was prepped and draped in the usual fashion. The right femoral vein was located with ultrasound. It was patent, compressed easily, and had no filling defects. The vein was then punctured under ultrasound visualization. A guidewire was then passed centrally into the inferior vena cava under fluoroscopic guidance. The puncture site was then dilated and the filter sheath inserted. It was passed to the infra renal vena cava. A venacavagram was done which showed no cava clot and an acceptable size. The renal veins were identified. The filter was then passed through the sheath and deployed in the infra renal vena cava in an upright position. Satisfied with the positioning of the filter, the sheath was removed. Pressure was applied to the puncture site. Adequate hemostasis was obtained and a sterile dressing was applied. The patient left the operation room in satisfactory condition and tolerated the procedure well. All needle and sponge counts were correct at the end of the procedure. I attest to the content of the Intraoperative Record and any orders documented therein. Any exceptions are noted below.
--- NOTE | 2019-11-15 14:18 | Billing Data ---
Date of Service November 15, 2019 Coding Level of Care Code Critical Care ea addt'l 30 min Time Spent (min) 95
[2019-11-15] MEDS: AMIODARONE / D5W 360 MG/200 ML BAG IV SCH (14:29)
--- NOTE | 2019-11-15 15:10 | Anesthesiology Progress Note ---
Date of Service November 15, 2019 Anesthesia Post Procedure Vital Signs Vital Signs: Temp Pulse Pulse Pulse Resp BP BP 11/15/19 14:58 36.9 C 71 17 86/53 L 11/15/19 14:43 36.9 C 71 12 92/54 L 11/15/19 14:27 36.6 C 82 16 90/61 L 11/15/19 14:21 36.6 C 83 15 90/61 L 11/15/19 14:12 36.6 C 108 H 17 91/69 L 11/15/19 13:45 36.5 C 99 H 17 88/61 L 11/15/19 13:37 36.6 C 106 H 19 91/69 L 11/15/19 13:02 36.4 C L 103 H 20 89/55 L 11/15/19 11:59 37 C 85 18 98/67 L 11/15/19 11:56 37.2 C 108 H 17 96/70 L 11/15/19 11:38 37.2 C 73 12 94/63 L 11/15/19 10:33 37.1 C 103 H 14 109/71 11/15/19 09:57 37.3 C 118 H 18 113/67 11/15/19 09:40 37.3 C 20 99/73 L 11/15/19 09:04 36.9 C 116 H 14 102/74 11/15/19 08:54 37.0 C 122 H 15 102/74 11/15/19 08:26 36.9 C 127 H 18 113/69 11/15/19 08:00 85 11/15/19 07:21 36.9 C 106 H 14 100/76 11/15/19 07:06 37.1 C 127 H 13 101/73 11/15/19 06:50 37.2 C 129 H 17 104/64 11/15/19 06:30 87 14 11/15/19 06:27 89 16 98/69 L 11/15/19 06:25 91 H 17 121/62 11/15/19 05:57 93 H 19 94/59 L 11/15/19 05:45 117 H 15 11/15/19 05:42 113 H 14 83/67 L 11/15/19 05:30 90 18 11/15/19 05:27 92 H 19 96/55 L 11/15/19 05:15 87 19 09/02/20 05:12 97 H 13 97/64 L 11/15/19 05:00 105 H 16 11/15/19 04:57 86 19 95/65 L 11/15/19 04:45 92 H 15 11/15/19 04:42 99 H 17 101/59 L 11/15/19 04:30 104 H 14 11/15/19 04:27 126 H 15 94/60 L 11/15/19 04:15 124 H 14 11/15/19 04:12 121 H 15 86/61 L 11/15/19 04:00 124 H 15 11/15/19 03:57 124 H 17 89/63 L 11/15/19 03:42 86 16 96/60 L 11/15/19 03:39 37.2 C 11/15/19 03:30 91 H 16 11/15/19 03:27 104 H 16 95/63 L 11/15/19 03:15 97 H 18 11/15/19 03:11 91 H 17 104/58 L 11/15/19 03:00 95 H 16 11/15/19 02:56 92 H 16 101/64 11/15/19 02:45 133 H 14 11/15/19 02:41 124 H 16 102/61 11/15/19 02:30 123 H 14 11/15/19 02:26 117 H 14 90/63 L 11/15/19 02:15 126 H 15 11/15/19 02:11 126 H 17 88/63 L 11/15/19 02:00 130 H 16 11/15/19 01:57 133 H 16 101/63 11/15/19 01:45 94 H 17 11/15/19 01:41 99 H 16 118/66 11/15/19 01:30 95 H 15 11/15/19 01:26 130 H 15 94/71 L 11/15/19 01:15 124 H 16 11/15/19 01:11 132 H 12 99/66 L 11/15/19 01:00 124 H 13 11/15/19 00:56 131 H 14 97/64 L 11/15/19 00:45 133 H 17 11/15/19 00:41 126 H 13 95/69 L 11/15/19 00:30 126 H 14 11/15/19 00:26 130 H 13 97/69 L 11/15/19 00:15 118 H 17 11/15/19 00:12 128 H 18 92/64 L 11/15/19 00:00 36.6 C 96 H 15 11/14/19 23:57 94 H 14 96/61 L 11/14/19 23:45 95 H 14 11/14/19 23:41 94 H 16 100/64 11/14/19 23:33 100 H 11/14/19 23:30 100 H 14 11/14/19 23:27 96 H 16 84/72 L 11/14/19 23:15 103 H 16 11/14/19 23:12 96 H 13 78/67 L 11/14/19 23:00 95 H 15 11/14/19 22:57 103 H 15 58/28 L 11/14/19 22:45 114 H 14 11/14/19 22:31 103 H 22 87/56 L 11/14/19 22:30 141 H 19 11/14/19 22:22 144 H 17 82/57 L 11/14/19 22:05 151 H 16 78/58 L 11/14/19 22:03 155 H 18 77/56 L 11/14/19 22:02 159 H 20 11/14/19 21:30 125 H 21 72/52 L 11/14/19 21:00 121 H 14 11/14/19 20:30 111 H 15 11/14/19 20:00 36.8 C 130 H 16 11/14/19 19:42 154 H 22 95/55 L 11/14/19 19:30 146 H 11 L 11/14/19 19:00 159 H 23 11/14/19 17:33 37 C 109 H 109 H 17 96/68 L 11/14/19 16:35 110 H 20 81/48 L 11/14/19 16:00 122 H 11/14/19 15:39 86/59 L 11/14/19 15:38 36.6 C 113 H 18 74/55 L Pulse Ox 11/15/19 14:58 96 11/15/19 14:43 97 11/15/19 14:27 94 11/15/19 14:21 92 11/15/19 14:12 93 11/15/19 13:45 94 11/15/19 13:37 93 11/15/19 13:02 95 11/15/19 11:59 100 11/15/19 11:56 100 11/15/19 11:38 98 11/15/19 10:33 99 11/15/19 09:57 99 11/15/19 09:40 100 11/15/19 09:04 98 11/15/19 08:54 95 11/15/19 08:26 99 11/15/19 08:00 11/15/19 07:21 99 11/15/19 07:06 100 11/15/19 06:50 98 11/15/19 06:30 99 11/15/19 06:27 98 11/15/19 06:25 98 11/15/19 05:57 95 11/15/19 05:45 98 11/15/19 05:42 98 11/15/19 05:30 98 11/15/19 05:27 97 11/15/19 05:15 99 11/15/19 05:12 99 11/15/19 05:00 99 11/15/19 04:57 100 11/15/19 04:45 97 11/15/19 04:42 96 11/15/19 04:30 99 11/15/19 04:27 98 11/15/19 04:15 97 11/15/19 04:12 96 11/15/19 04:00 95 11/15/19 03:57 95 11/15/19 03:42 97 11/15/19 03:39 11/15/19 03:30 99 11/15/19 03:27 11/15/19 03:15 97 11/15/19 03:11 98 11/15/19 03:00 98 11/15/19 02:56 98 11/15/19 02:45 99 11/15/19 02:41 97 11/15/19 02:30 98 11/15/19 02:26 99 11/15/19 02:15 97 11/15/19 02:11 97 11/15/19 02:00 96 11/15/19 01:57 97 11/15/19 01:45 99 11/15/19 01:41 100 11/15/19 01:30 100 11/15/19 01:26 99 11/15/19 01:15 98 11/15/19 01:11 100 11/15/19 01:00 99 11/15/19 00:56 99 11/15/19 00:45 100 11/15/19 00:41 100 11/15/19 00:30 100 11/15/19 00:26 100 11/15/19 00:15 100 11/15/19 00:12 90 11/15/19 00:00 97 11/14/19 23:57 11/14/19 23:45 98 11/14/19 23:41 98 11/14/19 23:33 11/14/19 23:30 98 11/14/19 23:27 100 11/14/19 23:15 98 11/14/19 23:12 100 11/14/19 23:00 100 11/14/19 22:57 95 11/14/19 22:45 98 11/14/19 22:31 99 11/14/19 22:30 99 11/14/19 22:22 99 11/14/19 22:05 97 11/14/19 22:03 11/14/19 22:02 11/14/19 21:30 97 11/14/19 21:00 11/14/19 20:30 11/14/19 20:00 100 11/14/19 19:42 99 11/14/19 19:30 98 11/14/19 19:00 97 11/14/19 17:33 99 11/14/19 16:35 100 11/14/19 16:00 11/14/19 15:39 11/14/19 15:38 98 Transfer of Care Handoff Completed per policy Notes Mental Status: alert / awake / arousable and participated in evaluation Patient Amnestic to Procedure: Yes Nausea / Vomiting: adequately controlled Pain: adequately controlled Airway Patency, RR, SpO2: stable & adequate BP & HR: stable & adequate Hydration State: stable & adequate Anesthetic Complications: no major complications apparent and Pt Satisfied with anesthetic care
[2019-11-15] MEDS: MIRTAZAPINE TAB 15 MG TAB PO SCH (20:42)
[2019-11-15] MEDS: METOPROLOL SUCC 25MG EXT REL TAB PO SCH (20:42)
[2019-11-15] MEDS: ATORVASTATIN 40 MG TAB PO SCH (20:42)
--- NOTE | 2019-11-15 21:07 | Electrocardiogram Report ---
Test Reason : Blood Pressure : / mmHG Vent. Rate : 156 BPM Atrial Rate : 156 BPM P-R Int : 128 ms QRS Dur : 066 ms QT Int : 256 ms P-R-T Axes : 046 022 212 degrees QTc Int : 412 ms Possible Atrial tachycardia Low voltage QRS Nonspecific T wave abnormality Abnormal ECG When compared with ECG of 12-NOV-2019 07:01, Vent. rate has increased BY 79 BPM Criteria for Septal infarct are no longer Present Atrial tachycardia has replaced Sinus rhythm Confirmed by Ward Almeida ([id number]) on 11/15/2019 9:06:42 PM Referred By: [facility] Confirmed By:Ward Almeida
--- NOTE | 2019-11-15 22:45 | Hospitalist Progress Note ---
Date of Service November 15, 2019 Assessment & Plan (1) Hypotension: Manual BP in both arms read 70/40s. 1L IV bolus immediately begun. Ddx as follows: * Obstructive - Known PE & DVT; however, clot burden relatively small and TTE showed good EF with no indication of RV overload. No pericardial effusion. * Distributive - No indication of sepsis causing low BP. No indication of anaphylaxis. Cortisol was 10 (normal for time of day). * Cardiogenic - TTE showed EF 50-55%. Troponin negative. * Hypovolemic - No indication of RP bleed on CT a/p. Hgb stable. On day of 11/10 Lactate was normal at 1.5 and she maintained mental status and UOP throughout. In the end, thought to be hypovolemia from colonoscopy prep and being NPO. Her BP responded to fluids. This case was discussed with Dr. Krishnamurthy who felt that without signs of end-organ damage, the patient did not warrant ICU status. Her right leg BP was also slightly higher pointing toward difficult readings with arm blood pressures. On day of 11/11: BP is slightly better, will continue to monitor, due to atrial tachycardia will add long acting metoprolol which should help control heart rate and may have decrease effect on BP. on 11/12: BP is borderline. HR is controlled, warfarin 5 mg 11/13 Patient remains hypotensive, not making urine. will transfer to ICU. 11/14 Patient found to have hematoma and anemia. Anticoagulant is stopped. Plan is for possible IVC filter On vasopressors (2) Pulmonary embolism: CTA chest on 11/09 shows bilateral pulmonary emboli. Doppler on 11/09 showed left popliteal DVT. - Heparin gtt started on admission; held temporarily due to concern for life- threatening bleed, then restarted the morning of 11/10. - stop lovenox as stated above. (3) History of cerebrovascular accident: History of large left MCA stroke in 05/2019, treated at [facility]. Had hemorrhagic conversion of the stroke. Thought to be thrombotic. Hypercoagulable work-up was largely negative with some testing planned to be repeated in 12 weeks after discharge. Unclear if any of this was done. - Continue ASA, statin - Neurology consult to weigh in on anticoagulation given the hemorrhagic conversion (4) Sinus tachycardia: Patient has a known history of atrial tachycardia. Implanted loop recorder put in at [facility] during admission for CVA. - HR at [facility] was reportedly as high as 150, again possibly due to hypovolemia and PE. - Today generally normal. High as 115 in context of low BP above. Sometimes down in the 70 range, but then will bump up to 110 again. - Defer cardiology consult at this point given known issue which seems to be returning to normal with treatment of her other medical issues. Better controlled, toprol on hold (5) UTI (urinary tract infection): Patient has an E. coli UTI documented on 11/05. She had 3 days of cefdinir prior to admission. (Started on 11/05). - Continue ceftriaxone for now. (6) Dysphagia: Due to prior stroke. 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 - Continue fluoxetine, mirtazapine, and gabapentin Admission and Anticipated Discharge Date Admission Date: November 11, 2019 Subjective Patient reports no new complaints. Review of Systems Review of Systems: All systems reviewed & are unremarkable except as noted in HPI & below Physical Exam Physical Exam: Constitutional: WD/WN, vitals as above Eyes: EOM intact bilaterally; no conjunctival abnormality ENMT: external ear and nose normal, oropharynx normal Neck: trachea midline, no thyromegaly normal visual inspection Respiratory: normal respiratory effort, lungs clear to auscultation no respiratory distress Cardiovascular: RRR, no murmur, no edema Gastrointestinal (Abdomen): Inspection/Auscultation: abdomen normal to inspection; abdomen not distended Musculoskeletal: no cyanosis or clubbing, extremities motor strength 5/5 Skin: no rashes, warm and dry Neurologic: awake; + does not move all extremities (Right hemiplegia) Psychiatric: Orientation: alert, oriented to person and cooperative Results & Data Results & Data ([facility]) Vital Signs (Past 12 Hours) Vital Signs Temp Pulse Pulse Resp BP BP Pulse Ox 11/15/19 21:49 79 16 84/58 L 99 11/15/19 21:45 82 17 99 11/15/19 21:34 81 16 87/56 L 98 11/15/19 21:30 80 16 99 11/15/19 21:19 82 17 85/60 L 99 11/15/19 21:15 79 17 99 09/02/20 21:04 96 H 16 92/69 L 99 11/15/19 21:00 80 17 100 11/15/19 20:49 77 17 97/66 L 99 11/15/19 20:45 88 19 98 11/15/19 20:35 95 H 20 106/67 11/15/19 20:00 36.8 C 11/15/19 19:49 77 17 92/62 L 99 11/15/19 19:45 81 18 100 11/15/19 19:34 78 16 91/62 L 99 11/15/19 19:19 77 16 92/71 L 99 11/15/19 18:04 36.9 C 73 17 106/63 99 11/15/19 17:04 90 17 111/58 L 100 11/15/19 16:46 36.9 C 109 H 17 106/78 97 11/15/19 16:31 37.0 C 70 16 106/78 97 11/15/19 16:16 36.9 C 71 16 101/71 98 11/15/19 16:00 36.9 C 71 22 102/67 99 11/15/19 15:28 36.9 C 71 24 102/67 97 11/15/19 14:58 36.9 C 71 17 86/53 L 96 11/15/19 14:43 36.9 C 71 12 92/54 L 97 11/15/19 14:27 36.6 C 82 16 90/61 L 94 11/15/19 14:21 36.6 C 83 15 90/61 L 92 11/15/19 14:12 36.6 C 108 H 17 91/69 L 93 11/15/19 13:45 36.5 C 99 H 17 88/61 L 94 11/15/19 13:37 36.6 C 106 H 19 91/69 L 93 11/15/19 13:02 36.4 C L 103 H 20 89/55 L 95 11/15/19 11:59 37 C 85 18 98/67 L 100 11/15/19 11:56 37.2 C 108 H 17 96/70 L 100 11/15/19 11:38 37.2 C 73 12 94/63 L 98 PG Care Time/CCT Total # of Minutes Spent Total Time Spent with Patient: Total time spent is greater than 50% in coordination of care (as documented) at patient's floor/unit and/or counseling patient: Coding Level of Care Code 27010 Subseq Hosp Care Lvl 3 Diagnoses Hypotension I95.9 Pulmonary embolism I26.99 History of cerebrovascular accident Z86.73 Sinus tachycardia R00.0 UTI (urinary tract infection) N30.00 Hematuria presence: without hematuria Urinary tract infection type: acute cystitis Dysphagia R13.10 GERD (gastroesophageal reflux disease) K21.9 Major depressive disorder F32.9 Time Spent (min) 35 (1) UTI (urinary tract infection) Hematuria presence: without hematuria Urinary tract infection type: acute cystitis Qualified Code(s): N30.00 - Acute cystitis without hematuria
[2019-11-16] MEDS: NOREPINEPHRINE BIT INJ 8 MG in DEXTROSE 5% 500 ML IV SCH (00:40)
[2019-11-16] MEDS: AMIODARONE / D5W 360 MG/200 ML BAG IV SCH ×2 (01:58→15:05)
[2019-11-16] MEDS ORDERED: MoRPHine SULFATE 2 MG/ML CARP IV STA (02:26)
[2019-11-16] MEDS ORDERED: MoRPHine SULFATE 2 MG/ML CARP ONE (02:29)
[2019-11-16 04:54] LABS: INR 1.4 (0.9-1.1); Prothrombin Time 14.8 Seconds (9.0-12.0)
[2019-11-16 05:03] LABS: Hematocrit (blood only) 18.7 % (37-47); Hemoglobin 6.6 g/dL (12.0-16.0); Mean Corpuscular Hemoglobin 30.1 pg (25-34); Mean Corpuscular Hgb Conc 35.3 g/dL (32-36); Mean Corpuscular Volume 85.4 fL (80-100); Mean Platelet Volume 9.3 fL (7.4-10.4); Platelet Count 169 K/uL (130-400); RDW Coefficient of Variation 15.8 % (11.5-14.5); RDW Standard Deviation 49.1 fL (36.4-46.3); Red Blood Count 2.19 M/uL (4.2-5.4); White Blood Count 8.68 K/uL (4.8-10.8)
[2019-11-16 05:05] LABS: Basophils # (auto) 0.03 K/uL (0-0.2); Basophils % (auto) 0.3 %; Eosinophils # (auto) 0.08 K/uL (0-0.5); Eosinophils % (auto) 0.9 %; Immature Granulocytes # (auto) 0.05 K/uL (0.00-0.02); Immature Granulocytes % (auto) 0.6 %; Lymphocytes # (auto) 0.39 K/uL (1.2-3.4); Lymphocytes % (auto) 4.5 %; Monocytes # (auto) 0.38 K/uL (0.11-0.59); Monocytes % (auto) 4.4 %; Neutrophils # (auto) 7.75 K/uL (1.4-6.5); Neutrophils % (auto) 89.3 %; RBC Morphology Unremarkable
[2019-11-16] MEDS ORDERED: SODIUM CHLORIDE 0.9% 250 ML IV PRN ×3 (05:07→07:49)
[2019-11-16 05:08] LABS: BUN Creatinine Ratio 15.3 (10-20); Calcium 6.4 mg/dl (8.5-10.1); Creatinine Clr Calc Pharmacy 154.9 ml/min; Est GFR (African American) 131.6; Est GFR (Non-African American) 113.6; Magnesium 1.8 mg/dl (1.8-2.4); Phosphorus 2.1 mg/dl (2.5-4.9); Potassium 2.9 mmol/L (3.5-5.1)
[2019-11-16] MEDS ORDERED: POTASSIUM PHOS 3 MMOL/1 ML INFUSION IV STA (05:14)
[2019-11-16] MEDS ORDERED: MAGNESIUM SULFATE / D5W 1 GM/100 ML BAG IV ONE (05:30)
[2019-11-16] MEDS: POTASSIUM CHLORIDE / WTR 20 MEQ/100 ML PLCT IV SCH ×2 (05:45→08:07)
[2019-11-16] MEDS: NORMOSOL-R 1,000 ML IV SCH ×2 (05:48→20:09)
[2019-11-16] MEDS ORDERED: POTASSIUM PHOSPHATE 15 MMOL in SODIUM CHLORIDE 0.9% 250 ML IV ONE (06:00)
[2019-11-16 07:07] LABS: Fibrinogen 129 mg/dl (184-400)
[2019-11-16] MEDS: ASPIRIN 81 MG ECTAB PO SCH (08:37)
[2019-11-16] MEDS: PANTOprazole 40 MG TAB PO SCH (08:37)
[2019-11-16] MEDS: FLUOXETINE HCL 20 MG CAP PO SCH (08:37)
[2019-11-16] MEDS: MULTIVITAMIN TAB PO SCH (08:37)
[2019-11-16] MEDS: THIAMINE HCL 100 MG TAB PO SCH (08:38)
--- NOTE | 2019-11-16 08:44 | Critical Care Progress Note ---
Date of Service November 16, 2019 Assessment & Plan (1) Pulmonary embolism: Reason Critically Ill: Patient is a 49y/o female with past history significant for large L MCA and small R MCA stroke with cerebral edema, and subsequent hemorrhagic conversion (05/2019); transferred to the ICU for concern of undifferentiated shock in the setting of persistent tachycardia, and hypotension with limited urinary output and increasing peripheral edema. Now with acute retroperitoneal hematoma, demonstrated on CT from 11/14 and in the setting of continued worsening anemia. Started on transfusion protocol has received total 5 units of PRBCs, and 4 units of FFP. Neuro: - CAM ICU negative - baseline of expressive aphasia, with R-sided hemiparesis Cardiac/Vascular: - Improved tachycardia, hypotensive, and with 2+ pitting edema to b/l lower extremities and RUE - Venous doppler (11/09) demonstrated: 1. There is nearly occlusive deep venous thrombosis identified in the left popliteal vein which extends into the calf. 2. There is no sonographic evidence of deep venous thrombosis identified in t he right lower extremity. - Echo (11/10): EF 50-55%, no evidence of right ventricular pressure or volume overload, normal RV size and function - repeat Echo today demonstrated - EKG (11/13) sinus tachycardia, no ST abnormalities - completed 24-hour amiodarone load, transition to 200 mg p.o. amiodarone - Albumin 1.0 - IVC filter placed on 11/14 by vascular surgery Respiratory: - Chest CTA 11/09 demonstrated bilateral segmental and subsegmental pulmonary emboli, moderate to large pleural effusions - CXR did not demonstrate concern for pneumothorax following loss of right IJ - no increased oxygen requirements GI/Nutrition: - history of Crohn's disease - Acute retroperitoneal hematoma established on CT from 11/14 - CT abd/pelv 11/10 demonstrated: 1. Findings suggest a nonspecific colitis. Clinical correlation will be required. 2. Severe hepatic steatosis. 3. There is evidence of fluid overload including body wall edema, moderate pleural effusions, and a small volume of abdominopelvic ascites. 4. Retained cortical contrast is noted in the kidneys. This could be seen in the setting of acute renal injury and clinical correlation will be required. 5. There is no hyperdense fluid collection identified to suggest hematoma. - CT abd/pelv 11/14 demonstrated: 1. Acute retroperitoneal hematoma of the right iliacus muscle and to a lesser extent within the psoas and iliopsoas distributions. 2. Wall thickening throughout the colon is re-demonstrated. New areas of wall thickening are noted within several loops of jejunum. Findings are suggestive of a nonspecific enterocolitis. 3. Fluid overload with moderate pleural effusions, anasarca and small volume of abdominopelvic ascites. 4. Severe hepatic steatosis. - Tolerating oral intake Renal/Lytes: - no significant electrolyte abnormalities : - Plata catheter (placed 11/10) - continue to monitor output ENDO: - TSH 2.67 on admission, no previous history - random Cortisol 23.99 - Gave 50 mg Solu-Cortef x1 HEME: - Hgd 6.6, platelet 169, fibrinogen 120 - received total of 5 unit of PRBCs, and 4 units of FFP, 2.5mg of Vitamin K, and 1 unit cryoprecipitate - Transfusion reaction labs - H/H to be checked at 1400, with continued monitoring H/H q6h - coagulopathy without clear source; hyper-coag work-up negative per review of [facility] records - INR downtrending to 1.4 (received only Warfarin 5mg on 11/12) - anti-Xa level 1.29 ID: - pro-samantha 0.2 - prior to hospitalization had a non-complicated UTI that was treated as an outpatient with cefdinir before admission and then completed treatment with three days of Rocephin (11/10-11/12) - no current infectious source - Blood culture from 11/11 with no growth at 48hrs Lines/IV Access: - PIV x1 - Right IJ incidentally pulled, will attempt to secure new central DVT Prophylaxis: - Hold Lovenox in the setting of acute retroperitoneal bleed Admission and Anticipated Discharge Date Admission Date: November 11, 2019 Supervising Physician Co-Signing Physician Notes Dr. Carter was resident physician during care of patient. I separately evaluated patient for armstrong portions of the history and the exam. I was present during the critical portion of medical decision making, and I discussed the case with the resident. I generally agree with the findings and plan. Patient was discussed on multidisciplinary rounds. Patient tolerated her IVC filter yesterday Continued blood loss will give additional 2 units for ongoing hemorrhage, I still believe that this can be managed conservatively with blood transfusion: IVC filter was certainly necessary, this would complicate IR approach. If there continues to be ongoing blood loss will consider transfer, FFP for hypofibrinogenemia. Later patient did have acute hypoxia after pulling out central line. FFP infusion was almost completed, we sent labs for possible transfusion reaction I believe that to be less likely. Other considerations could be worsening venous thromboembolic burden and poor forward flow given recurrent tachycardia. Previously the patient had bouts of tachycardia and became rather symptomatic, and treating the patient with beta-blockers it improved not only her discomfort but also improved her oxygenation. Subjective Overnight patient required additional transfusion for continued treatment of her anemia. In total she has received 5 units of PRBCs, 4 units of FFP, 2.5mg of vitamin K. She continues to feel relatively improved/okay from previous worsening. Event report: At approximately 1150, patient pulled right IJ. Brennan Randle PA-C, was at bedside, and called for implementation project coordinator team to report to bedside, Dr. Rinaldi and myself reported to bedside. Pressure was applied to supraclavicular space where IJ previously resided for 10 minutes, with Tegaderm placed over site. Simultaneously to IJ removal patient had development of hypoxia requiring oxygen supplementation and was in sinus tachycardic to the 150s on monitor. 2.5 mg of IV Lopressor was given, this initially made no change to her heart rate, and a second round of 2.5 mg IV Lopressor was ultimately given, which resulted in improvement of her overall tachycardia. Chest x-ray was obtained demonstrating no concern for pneumothorax, or mediastinal shifting. Review of Systems Review of Systems: All systems reviewed & are unremarkable except as noted in Subjective Physical Exam Constitutional: WD/WN, vitals as above + physical limitations Eyes: PERRL, conjunctivae normal, anicteric sclerae Neck: trachea midline, no thyromegaly Respiratory: normal respiratory effort; no respiratory distress, no labored breathing and no cough Auscultation: no diminished lung sounds, no crackles, no rales and no wheezes Cardiovascular: Rate/Rhythm: + tachycardic Heart Sounds: no gallop, no murmur and no cardiac rub Vessels: no JVD Extremities: + edema (b/l 3+ pitting edema to thigh, 2+ pitting edema to RUE) Gastrointestinal (Abdomen): normal bowel sounds, soft, nontender, no hepatosplenomegaly Musculoskeletal: Extremities: + limited ROM of extremities (RUE & RLE) Skin: + ecchymosis (LUE) Neurologic: + focal motor deficit (R sided hemiparesis) Speech / Cognition: + abnormal speech (expressive aphasia) Cranial Nerves: PERRL, EOM intact bilaterally, normal facial strength, tongue midline, normal hearing, able to rotate head bilaterally and able to elevate shoulders bilaterally Results & Data Results & Data ([facility]) Vital Signs (Past 12 Hours) Vital Signs Temp Pulse Resp BP Pulse Ox 11/16/19 08:30 37 C 78 18 113/84 98 11/16/19 08:15 36.7 C 84 20 106/86 95 11/16/19 08:00 36.7 C 110 H 16 105/73 98 11/16/19 06:38 36.9 C 77 16 109/70 98 11/16/19 06:20 81 16 105/64 99 11/16/19 06:15 86 16 99 11/16/19 06:08 36.9 C 84 16 108/65 98 11/16/19 06:05 87 15 108/65 98 11/16/19 06:00 86 15 99 11/16/19 05:53 36.9 C 86 16 99/71 L 99 11/16/19 05:49 81 16 99/71 L 98 11/16/19 05:45 84 15 99 11/16/19 05:37 36.8 C 90 15 97/68 L 98 11/16/19 05:34 85 15 97/68 L 97 11/16/19 05:30 90 16 97 11/16/19 05:20 87 15 84/70 L 98 11/16/19 05:15 93 H 16 97 11/16/19 05:05 89 16 92/65 L 98 11/16/19 04:49 92 H 22 107/81 98 11/16/19 04:35 91 H 17 94/75 L 98 11/16/19 04:19 81 17 91/66 L 97 11/16/19 04:04 82 17 90/60 L 98 11/16/19 04:00 36.8 C 11/16/19 03:50 81 20 94/62 L 97 11/16/19 03:35 80 18 94/70 L 98 11/16/19 03:20 92 H 16 112/47 L 97 11/16/19 03:05 91 H 21 100/65 98 11/16/19 02:50 91 H 16 92/63 L 100 11/16/19 02:34 87 18 91/66 L 11/16/19 02:19 87 18 96/65 L 100 11/16/19 02:15 88 22 97 11/16/19 02:05 93 H 23 106/63 99 11/16/19 02:00 91 H 17 99 11/16/19 01:49 82 15 100/66 98 11/16/19 01:45 85 15 98 11/16/19 01:34 87 15 90/60 L 98 11/16/19 01:30 86 15 98 11/16/19 01:19 82 15 87/57 L 98 11/16/19 01:15 82 17 97 11/16/19 01:04 102 H 20 90/64 L 98 11/16/19 00:49 80 16 95/69 L 98 11/16/19 00:34 79 16 88/63 L 100 11/16/19 00:19 74 16 97/60 L 99 11/16/19 00:04 73 16 90/65 L 99 11/16/19 00:00 36.8 C 11/15/19 23:59 82 11/15/19 23:49 98 H 16 96/63 L 96 11/15/19 23:34 69 14 95/58 L 99 11/15/19 23:19 77 23 98/55 L 97 11/15/19 23:04 77 20 95/57 L 97 11/15/19 22:49 74 28 H 86/58 L 97 11/15/19 22:34 72 18 84/52 L 100 11/15/19 22:19 73 16 102/56 L 100 11/15/19 22:04 81 17 83/52 L 97 11/15/19 21:49 79 16 84/58 L 99 11/15/19 21:45 82 17 99 11/15/19 21:34 81 16 87/56 L 98 11/15/19 21:30 80 16 99 11/15/19 21:19 82 17 85/60 L 99 11/15/19 21:15 79 17 99 11/15/19 21:04 96 H 16 92/69 L 99 11/15/19 21:00 80 17 100 11/15/19 20:49 77 17 97/66 L 99 11/15/19 20:45 88 19 98 Critical Care Time Critical Care Time: Yes Total Critical Care Time: 100 I have personally spent 100 minutes of critical care time in the direct management of this patient. This is a life/limb threatening event. This includes time spent evaluating patient, direct bedside care, chart review, placing orders, interpretation of diagnostic studies, discussion with consultants, patient, and/or family members regarding treatment decisions, as well as other required patient management activities. This time is exclusive of all separately billable procedures, and teaching time and separate from and in addition to any other critical care service time. Resident Activity Tracking Resident Involvement: Resident Care Provided Care Provided: Adult Hospital Medicine (Critical Care)
--- NOTE | 2019-11-16 09:40 | Billing Data ---
Date of Service November 16, 2019 Coding Level of Care Code Critical Care 1st - mins
[2019-11-16] MEDS ORDERED: HYDROCORTISONE SOD 100 MG in SYRINGE 0 ML IV STA (09:57)
[2019-11-16] MEDS ORDERED: HYDROCORTISONE SOD 50 MG in SYRINGE 0 ML IV STA (10:01)
[2019-11-16] MEDS ORDERED: ADENOSINE IV SOLN 3 MG/ML 2 ML VIAL IV ONE (11:40)
[2019-11-16] MEDS ORDERED: METOPROLOL TARTRATE 1 MG/ML VIAL IV STA ×2 (11:45→11:52)
--- NOTE | 2019-11-16 13:14 | XRay Report ---
XR chest 1V portable HISTORY: 49 years-old Female Pulled IJ, hypoxia acute hypoxia. Right IJ central venous catheter jennifer ellyn COMPARISON: Chest radiograph 11/14/2019 TECHNIQUE: Portable AP view of the chest FINDINGS: Cardiac silhouette is upper limits of normal in size. Hypoinflation. Pulmonary vascular congestion. L ayering pleural effusions with bibasilar consolidative opacities. Interval removal of the right IJ ce ntral venous catheter. No pneumothorax. Degenerative changes of the shoulders and spine. Loop recorde r device. IVC filter. Convex right curvature of the midthoracic spine. IMPRESSION: 1. Interval removal of the right IJ central venous catheter. No pneumothorax. 2. Pulmonary vascular congestion. 3. Layering pleural effusions with persistent bibasilar consolidative opacities. ACT 112: Negative or not required by law. The above report was generated using voice recognition software. It may contain grammatical, syntax o r spelling errors. Electronically signed by: Rodolfo Douglass M.D. 11/16/2019 12:50 PM
[2019-11-16 13:47] LABS: Blood Urine Trace (Negative)
[2019-11-16] MEDS ORDERED: [UNRECOGNIZED DRUG - REMARK] ONE (15:00)
[2019-11-16 15:40] LABS: Hematocrit (blood only) 29.3 % (37-47); Hemoglobin 10.3 g/dL (12.0-16.0)
[2019-11-16] MEDS: AMIODARONE 200 MG TAB PO SCH (17:22)
[2019-11-16 19:46] LABS: Fibrinogen 178 mg/dl (184-400); INR 1.2 (0.9-1.1)
[2019-11-16] MEDS: ATORVASTATIN 40 MG TAB PO SCH (20:09)
[2019-11-16] MEDS: MIRTAZAPINE TAB 15 MG TAB PO SCH (20:10)
[2019-11-16 22:37] LABS: Hematocrit (blood only) 25.6 % (37-47); Hemoglobin 9.2 g/dL (12.0-16.0)
--- NOTE | 2019-11-16 22:50 | Hospitalist Progress Note ---
Date of Service November 16, 2019 Assessment & Plan (1) Hypotension: Patient is a 49y/o female with past history significant for large L MCA and small R MCA stroke with cerebral edema, and subsequent hemorrhagic conversion (05/2019); Patient became hypotensive and was having low urine output . Patient was found to have acute retroperitoneal hematoma, demonstrated on CT from 11/14 and in the setting of continued worsening anemia. Transfusion protocol was started by the ICU team: total of 5 units of PRBCs, and 4 units of FFP have been transfused. Hold anticoagulation. Plan is for IVC filter (2) Pulmonary embolism: CTA chest on 11/09 shows bilateral pulmonary emboli. Doppler on 11/09 showed left popliteal DVT. - Heparin gtt started on admission; then lovenox, then warfarin. However, due to hematoma, this is being held. (3) History of cerebrovascular accident: History of large left MCA stroke in 05/2019, treated at [facility]. Had hemorrhagic conversion of the stroke. Thought to be thrombotic. Hypercoagulable work-up was largely negative with some testing planned to be repeated in 12 weeks after discharge. Unclear if any of this was done. - Continue ASA, statin - Neurology consult to weigh in on anticoagulation given the hemorrhagic conversion (4) Sinus tachycardia: Patient has a known history of atrial tachycardia. Implanted loop recorder put in at [facility] during admission for CVA. - HR at [facility] was reportedly as high as 150, again possibly due to hypovolemia and PE. - Today generally normal. High as 115 in context of low BP above. Sometimes down in the 70 range, but then will bump up to 110 again. - Defer cardiology consult at this point given known issue which seems to be returning to normal with treatment of her other medical issues. Toprol is held due to hypotension Amiodarone has been started (5) UTI (urinary tract infection): Patient has an E. coli UTI documented on 11/05. She had 3 days of cefdinir prior to admission. (Started on 11/05). - completed treatment (6) Dysphagia: Due to prior stroke. - Aspiration precautions were undertaken - SURGICAL TECHNOLOGY INSTRUCTOR consulted (7) GERD (gastroesophageal reflux disease): - Continue pantoprazole (8) Major depressive disorder: Pleasant affect today despite medical issues. - Continue fluoxetine, mirtazapine, and gabapentin Admission and Anticipated Discharge Date Admission Date: November 11, 2019 Subjective Patient reports no new symptoms. Review of Systems Review of Systems: All systems reviewed & are unremarkable except as noted in HPI & below Physical Exam Physical Exam: Constitutional: WD/WN, vitals as above Eyes: EOM intact bilaterally; no conjunctival abnormality ENMT: external ear and nose normal, oropharynx normal Neck: trachea midline, no thyromegaly normal visual inspection Respiratory: normal respiratory effort, lungs clear to auscultation no respiratory distress Cardiovascular: RRR, no murmur, no edema Gastrointestinal (Abdomen): Inspection/Auscultation: abdomen normal to inspection; abdomen not distended Musculoskeletal: no cyanosis or clubbing, extremities motor strength 5/5 Skin: no rashes, warm and dry Neurologic: awake; + does not move all extremities (Right hemiplegia) Psychiatric: Orientation: alert, oriented to person and cooperative Results & Data Results & Data ([facility]) Vital Signs (Past 12 Hours) Vital Signs Temp Pulse Resp BP Pulse Ox 11/16/19 22:07 113 H 16 95/66 L 95 11/16/19 21:59 115 H 17 100/67 94 11/16/19 21:00 81 17 96 11/16/19 20:00 37 C 86 17 103/64 97 11/16/19 19:00 87 17 97 11/16/19 17:44 83 18 95/75 L 96 11/16/19 17:29 82 16 106/78 97 11/16/19 17:14 87 18 94/72 L 91 11/16/19 17:00 94 H 18 98/78 L 96 11/16/19 16:29 85 15 98/73 L 95 11/16/19 16:14 36.8 C 86 28 H 96/70 L 95 11/16/19 16:01 82 18 95 11/16/19 15:59 81 15 105/71 95 11/16/19 15:44 87 30 H 100/80 94 11/16/19 15:29 87 30 H 87/71 L 95 11/16/19 15:01 87 30 H 94 11/16/19 14:59 87 31 H 91/63 L 94 11/16/19 14:44 85 19 87/67 L 94 11/16/19 14:33 78 17 106/70 95 11/16/19 14:00 83 19 96 11/16/19 13:44 84 15 89/67 L 94 11/16/19 13:31 82 17 95 11/16/19 13:29 79 17 93/67 L 95 11/16/19 13:14 112 H 20 98/63 L 95 11/16/19 13:00 118 H 21 11/16/19 12:52 110 H 11/16/19 12:44 94 H 19 105/74 11/16/19 12:31 90 22 94 11/16/19 12:29 89 20 101/66 93 11/16/19 12:13 129 H 26 H 136/77 96 11/16/19 12:08 36.8 C 117 H 24 112/87 86 L 11/16/19 12:00 132 H 28 H 96 11/16/19 11:55 124 H 26 H 92 11/16/19 11:51 134 H 112/87 11/16/19 11:44 144 H 29 H 112/87 85 L 11/16/19 11:34 139 H 21 107/80 86 L 11/16/19 11:30 135 H 18 89 L 11/16/19 11:29 129 H 29 H 91/80 L 89 L 11/16/19 11:13 120 H 16 111/82 96 11/16/19 11:00 81 17 98 11/16/19 10:58 37 C 83 16 100/78 97 PG Care Time/CCT Total # of Minutes Spent Total Time Spent with Patient: Total time spent is greater than 50% in coordination of care (as documented) at patient's floor/unit and/or counseling patient: Coding Level of Care Code 07260 Subseq Hosp Care Lvl 3 Diagnoses Hypotension I95.9 Pulmonary embolism I26.99 History of cerebrovascular accident Z86.73 Sinus tachycardia R00.0 UTI (urinary tract infection) N30.00 Hematuria presence: without hematuria Urinary tract infection type: acute cystitis Dysphagia R13.10 GERD (gastroesophageal reflux disease) K21.9 Major depressive disorder F32.9 Time Spent (min) 35 (1) UTI (urinary tract infection) Hematuria presence: without hematuria Urinary tract infection type: acute cystitis Qualified Code(s): N30.00 - Acute cystitis without hematuria
[2019-11-16] MEDS ORDERED: CALCIUM GLUCONATE 10% 1,000 MG in SODIUM CHLORIDE 0.9% 50 ML IV ONE (23:30)
[2019-11-17] MEDS: NORMOSOL-R 1,000 ML IV SCH ×2 (04:06→08:05)
[2019-11-17 04:18] LABS: Hematocrit (blood only) 26.2 % (37-47); Hemoglobin 9.3 g/dL (12.0-16.0)
[2019-11-17 04:42] LABS: Albumin Globulin Ratio 0.5 (0.9-2); Albumin Level 1.2 gm/dl (3.4-5.0); Bilirubin,Total 0.5 mg/dl (0.2-1); Calcium 6.6 mg/dl (8.5-10.1); Creatinine Clr Calc Pharmacy 134.3 ml/min; Est GFR (African American) 125.1; Globulin 2.3 gm/dl (2.5-4.0); Magnesium 2.1 mg/dl (1.8-2.4); Phosphorus 2.7 mg/dl (2.5-4.9); Potassium 4.2 mmol/L (3.5-5.1); Total Protein 3.5 gm/dl (6.4-8.2)
[2019-11-17 04:58] LABS: Fibrinogen 178 mg/dl (184-400); INR 1.2 (0.9-1.1); Prothrombin Time 12.4 Seconds (9.0-12.0)
--- NOTE | 2019-11-17 06:24 | Critical Care Progress Note ---
Date of Service November 17, 2019 Assessment & Plan (1) Pulmonary embolism: Reason Critically Ill: Patient is a 49y/o female with past history significant for large L MCA and small R MCA stroke with cerebral edema, and subsequent hemorrhagic conversion (05/2019); transferred to the ICU for concern of undifferentiated shock in the setting of persistent tachycardia, and hypotension with limited urinary output and increasing peripheral edema. Now with acute retroperitoneal hematoma, demonstrated on CT from 11/14 and in the setting of continued worsening anemia. Started on transfusion protocol has received total 5 units of PRBCs, and 4 units of FFP. Neuro: - CAM ICU negative - baseline of expressive aphasia, with R-sided hemiparesis Cardiac/Vascular: - Improved tachycardia, hypotensive, and with 2+ pitting edema to b/l lower extremities and RUE - Venous doppler (11/09) demonstrated: 1. There is nearly occlusive deep venous thrombosis identified in the left popliteal vein which extends into the calf. 2. There is no sonographic evidence of deep venous thrombosis identified in t he right lower extremity. - Echo (11/10): EF 50-55%, no evidence of right ventricular pressure or volume overload, normal RV size and function - repeat Echo today demonstrated - EKG (11/13) sinus tachycardia, no ST abnormalities - completed 24-hour amiodarone load, transition to 200 mg p.o. amiodarone - Albumin 1.0 - IVC filter placed on 11/14 by vascular surgery Respiratory: - Chest CTA 11/09 demonstrated bilateral segmental and subsegmental pulmonary emboli, moderate to large pleural effusions - CXR did not demonstrate concern for pneumothorax following loss of right IJ - no increased oxygen requirements GI/Nutrition: - history of Crohn's disease - Acute retroperitoneal hematoma established on CT from 11/14 - CT abd/pelv 11/10 demonstrated: 1. Findings suggest a nonspecific colitis. Clinical correlation will be required. 2. Severe hepatic steatosis. 3. There is evidence of fluid overload including body wall edema, moderate pleural effusions, and a small volume of abdominopelvic ascites. 4. Retained cortical contrast is noted in the kidneys. This could be seen in the setting of acute renal injury and clinical correlation will be required. 5. There is no hyperdense fluid collection identified to suggest hematoma. - CT abd/pelv 11/14 demonstrated: 1. Acute retroperitoneal hematoma of the right iliacus muscle and to a lesser extent within the psoas and iliopsoas distributions. 2. Wall thickening throughout the colon is re-demonstrated. New areas of wall thickening are noted within several loops of jejunum. Findings are suggestive of a nonspecific enterocolitis. 3. Fluid overload with moderate pleural effusions, anasarca and small volume of abdominopelvic ascites. 4. Severe hepatic steatosis. - Tolerating oral intake Renal/Lytes: -Calcium 6.6, mag 2.1, phos 2.7 -Received 1 g IV calcium gluconate overnight -likely contributions from transfusions -Continue to monitor and replete per ICU protocol : - Plata catheter (placed 11/10) - continue to monitor output ENDO: - TSH 2.67 on admission, no previous history of diabetes or thyroid disorder - random Cortisol 23.99 - Received 50 mg Solu-Cortef x1 yesterday HEME: - Hgd 9.3, fibrinogen 178 - received total of 5 unit of PRBCs, and 4 units of FFP, 2.5mg of Vitamin K, and 1 unit cryoprecipitate - Transfusion reaction labs - H/H to be checked at 1400, with continued monitoring H/H q6h - coagulopathy without clear source; hyper-coag work-up negative per review of [facility] [place] - INR downtrending to 1.2 (received only Warfarin 5mg on 11/12) ID: - pro-samantha 0.2 - prior to hospitalization had a non-complicated UTI that was treated as an outpatient with cefdinir before admission and then completed treatment with three days of Rocephin (11/10-11/12) - no current concern for infectious source - Blood culture from 11/11 with no growth at 48hrs Lines/IV Access: - PIV x1 - Right IJ incidentally pulled, will attempt to secure new central DVT Prophylaxis: - Hold Lovenox in the setting of acute retroperitoneal bleed Admission and Anticipated Discharge Date Admission Date: November 11, 2019 Supervising Physician Co-Signing Physician Notes Dr. Carter was resident physician during care of patient. I separately evaluated patient for armstrong portions of the history and the exam. I was present during the critical portion of medical decision making, and I discussed the case with the resident. I generally agree with the findings and plan. Patient was discussed on multidisciplinary rounds. Patient's blood counts have stabilized in the last 24 hours. She remains a little low with fibrinogen and I believe there is reason for fibrinogen consumption given the large retroperitoneal hematoma. At this point I believe conservative treatment has succeeded. She has finished her amiodarone infusion and is on oral amiodarone in hopes to prevent recurrent tachycardia. If her blood pressures remain stable we will attempt to start some beta-blockade. Beta-blockade may be better long-term than amiodarone. Unfortunately the patient is at risk for both bleeding as well as venous thromboemboli and 1 could argue arterial thrombi given her recent stroke. She has an IVC filter in place and at this time systemic anticoagulation is contraindicated given her retroperitoneal hematoma. We will continue with antiplatelet medication. Palliative care has seen the patient, a repeat visit may be prudent as the additional conditions that the patient has acquired might change her outlook on aggressive resuscitative efforts and events of cardiac arrest. Given the multiple significant and life-threatening comorbidities I do not believe the patient has a likelihood of survival given current statistics of in-hospital cardiac arrest survivability in the general population. Most significantly right now if the patient were to suffer massive pulmonary embolism TPA would be very controversial given previous hemorrhagic transformation of the stroke. Patient remains critically ill due to pulmonary embolism, acute retroperitoneal hematoma while on systemic anticoagulation, ongoing hemorrhage and acute hypoxic respiratory failure. Subjective Patient with no acute events overnight, did not require any additional transfus ions. Denies abdominal pain, nausea, vomiting, shortness breath, dizziness, lightheadedness, chest pain, palpitations. Was repleted with 1 g IV calcium gluconate for continued symptomatic hypocalcemia. Review of Systems Review of Systems: All systems reviewed & are unremarkable except as noted in Subjective Physical Exam Constitutional: WD/WN, vitals as above + physical limitations Eyes: PERRL, conjunctivae normal, anicteric sclerae Neck: trachea midline, no thyromegaly Respiratory: normal respiratory effort; no respiratory distress, no labored breathing and no cough Auscultation: no diminished lung sounds, no crackles, no rales and no wheezes Cardiovascular: Rate/Rhythm: + tachycardic Heart Sounds: no gallop, no murmur and no cardiac rub Vessels: no JVD Extremities: + edema (b/l 3+ pitting edema to thigh, 2+ pitting edema to RUE) Gastrointestinal (Abdomen): normal bowel sounds, soft, nontender, no h epatosplenomegaly Musculoskeletal: Extremities: + limited ROM of extremities (RUE & RLE) Skin: + ecchymosis (LUE) Neurologic: + focal motor deficit (R sided hemiparesis) Speech / Cognition: + abnormal speech (expressive aphasia) Cranial Nerves: PERRL, EOM intact bilaterally, normal facial strength, tongue midline, normal hearing, able to rotate head bilaterally and able to elevate shoulders bilaterally Results & Data Results & Data ([facility]) Vital Signs (Past 12 Hours) Vital Signs Temp Pulse Resp BP Pulse Ox 11/17/19 06:00 80 13 92/54 L 94 11/17/19 05:00 81 16 95 11/17/19 04:00 36.7 C 88 14 117/67 92 11/17/19 03:00 72 15 92/53 L 93 11/17/19 02:00 77 24 93/60 L 93 11/17/19 01:00 94 H 13 92 11/17/19 00:00 36.9 C 90 17 106/61 92 11/16/19 23:00 83 16 94 11/16/19 22:07 113 H 16 95/66 L 95 11/16/19 21:59 115 H 17 100/67 94 11/16/19 21:00 81 17 96 11/16/19 20:00 37 C 86 17 103/64 97 11/16/19 19:00 87 17 97 Laboratory Results 11/17/19 11/17/19 11/17/19 Range/Units 04:09 04:09 04:09 Hgb 9.3 L Hct 26.2 L PT (9.0-12.0) Seconds INR (0.9-1.1) Fibrinogen (184-400) mg/dl Sodium 142 (136-145) mmol/L Potassium 4.2 D (3.5-5.1) mmol/L Chloride 113 H (98-107) mmol/L Carbon Dioxide 22 (21-32) mmol/L Anion Gap 7.0 (3-11) BUN 7 (7-18) mg/dl Creatinine 0.56 L (0.6-1.2) mg/dl Est Cr Clr Drug Dosing 134.3 ml/min Est GFR ( Amer) 125.1 Est GFR (Non-Af Amer) 108.0 BUN/Creatinine Ratio 12.0 (10-20) Glucose 92 (70-99) mg/dl Calcium 6.6 L (8.5-10.1) mg/dl Ionized Calcium 1.05 L (1.12-1.32) mmol/L Phosphorus 2.7 (2.5-4.9) mg/dl Magnesium 2.1 (1.8-2.4) mg/dl Total Bilirubin 0.5 (0.2-1) mg/dl AST 30 (15-37) U/L ALT 22 (12-78) U/L Alkaline Phosphatase 93 (45-117) U/L Total Protein 3.5 L (6.4-8.2) gm/dl Albumin 1.2 L (3.4-5.0) gm/dl Globulin 2.3 L (2.5-4.0) gm/dl Albumin/Globulin Ratio 0.5 L (0.9-2) Urine Blood (Negative) Urine RBC (Auto) (0-4) /hpf Blood Type Antibody Screen Crossmatch Transfusion React Date Transfusion React Time Tx React Symptoms Reaction Clerical Check Lab Clerical Err Check React Component Return Volume Returned Pre-Trans Blood Type Pre-Trans Vis Hemolysis Pre-Trans DANTE (Negative) Pre-Trans DANTE IgG (Negative) Pre-Trans DANTE Poly (Negative) Pre-Trans DANTE C3b, C3d (Negative) Post-Trans Blood Type Post-Tx Visible Hemolys Post-Trans DANTE (Negative) Post-Trans DANTE IgG (Negative) Post-Trans DANTE Poly (Negative) Post-Trans DANTE C3b, C3d (Negative) Post-Trans Ur Hemoglobin Reaction Path Interpret Transfusion Serv Com 11/17/19 11/16/19 11/16/19 Range/Units 04:09 22:21 22:21 Hgb 9.2 L Hct 25.6 L PT 12.4 H (9.0-12.0) Seconds INR 1.2 H (0.9-1.1) Fibrinogen 178 L (184-400) mg/dl Sodium (136-145) mmol/L Potassium (3.5-5.1) mmol/L Chloride (98-107) mmol/L Carbon Dioxide (21-32) mmol/L Anion Gap (3-11) BUN (7-18) mg/dl Creatinine (0.6-1.2) mg/dl Est Cr Clr Drug Dosing ml/min Est GFR ( Amer) Est GFR (Non-Af Amer) BUN/Creatinine Ratio (10-20) Glucose (70-99) mg/dl Calcium (8.5-10.1) mg/dl Ionized Calcium 1.01 L (1.12-1.32) mmol/L Phosphorus (2.5-4.9) mg/dl Magnesium (1.8-2.4) mg/dl Total Bilirubin (0.2-1) mg/dl AST (15-37) U/L ALT (12-78) U/L Alkaline Phosphatase (45-117) U/L Total Protein (6.4-8.2) gm/dl Albumin (3.4-5.0) gm/dl Globulin (2.5-4.0) gm/dl Albumin/Globulin Ratio (0.9-2) Urine Blood (Negative) Urine RBC (Auto) (0-4) /hpf Blood Type Antibody Screen Crossmatch Transfusion React Date Transfusion React Time Tx React Symptoms Reaction Clerical Check Lab Clerical Err Check React Component Return Volume Returned Pre-Trans Blood Type Pre-Trans Vis Hemolysis Pre-Trans DANTE (Negative) Pre-Trans DANTE IgG (Negative) Pre-Trans DANTE Poly (Negative) Pre-Trans DANTE C3b, C3d (Negative) Post-Trans Blood Type Post-Tx Visible Hemolys Post-Trans DANTE (Negative) Post-Trans DANTE IgG (Negative) Post-Trans DANTE Poly (Negative) Post-Trans DANTE C3b, C3d (Negative) Post-Trans Ur Hemoglobin Reaction Path Interpret Transfusion Serv Com 11/16/19 11/16/19 11/16/19 Range/Units 18:51 18:51 15:22 Hgb 10.3 L D Hct 29.3 L PT 13.0 H (9.0-12.0) Seconds INR 1.2 H (0.9-1.1) Fibrinogen 178 L D Cancelled (184-400) mg/dl Sodium (136-145) mmol/L Potassium (3.5-5.1) mmol/L Chloride (98-107) mmol/L Carbon Dioxide (21-32) mmol/L Anion Gap (3-11) BUN (7-18) mg/dl Creatinine (0.6-1.2) mg/dl Est Cr Clr Drug Dosing ml/min Est GFR ( Amer) Est GFR (Non-Af Amer) BUN/Creatinine Ratio (10-20) Glucose (70-99) mg/dl Calcium (8.5-10.1) mg/dl Ionized Calcium (1.12-1.32) mmol/L Phosphorus (2.5-4.9) mg/dl Magnesium (1.8-2.4) mg/dl Total Bilirubin (0.2-1) mg/dl AST (15-37) U/L ALT (12-78) U/L Alkaline Phosphatase (45-117) U/L Total Protein (6.4-8.2) gm/dl Albumin (3.4-5.0) gm/dl Globulin (2.5-4.0) gm/dl Albumin/Globulin Ratio (0.9-2) Urine Blood (Negative) Urine RBC (Auto) (0-4) /hpf Blood Type Antibody Screen Crossmatch Transfusion React Date Transfusion React Time Tx React Symptoms Reaction Clerical Check Lab Clerical Err Check React Component Return Volume Returned Pre-Trans Blood Type Pre-Trans Vis Hemolysis Pre-Trans DANTE (Negative) Pre-Trans DANTE IgG (Negative) Pre-Trans DANTE Poly (Negative) Pre-Trans DANTE C3b, C3d (Negative) Post-Trans Blood Type Post-Tx Visible Hemolys Post-Trans DANTE (Negative) Post-Trans DANTE IgG (Negative) Post-Trans DANTE Poly (Negative) Post-Trans DANTE C3b, C3d (Negative) Post-Trans Ur Hemoglobin Reaction Path Interpret Transfusion Serv Com 11/16/19 11/16/19 11/16/19 Range/Units 14:21 14:21 13:25 Hgb Cancelled Hct Cancelled PT (9.0-12.0) Seconds INR (0.9-1.1) Fibrinogen (184-400) mg/dl Sodium (136-145) mmol/L Potassium (3.5-5.1) mmol/L Chloride (98-107) mmol/L Carbon Dioxide (21-32) mmol/L Anion Gap (3-11) BUN (7-18) mg/dl Creatinine (0.6-1.2) mg/dl Est Cr Clr Drug Dosing ml/min Est GFR ( Amer) Est GFR (Non-Af Amer) BUN/Creatinine Ratio (10-20) Glucose (70-99) mg/dl Calcium (8.5-10.1) mg/dl Ionized Calcium 0.99 L (1.12-1.32) mmol/L Phosphorus (2.5-4.9) mg/dl Magnesium (1.8-2.4) mg/dl Total Bilirubin (0.2-1) mg/dl AST (15-37) U/L ALT (12-78) U/L Alkaline Phosphatase (45-117) U/L Total Protein (6.4-8.2) gm/dl Albumin (3.4-5.0) gm/dl Globulin (2.5-4.0) gm/dl Albumin/Globulin Ratio (0.9-2) Urine Blood Trace H (Negative) Urine RBC (Auto) 10-30 H (0-4) /hpf Blood Type Antibody Screen Crossmatch Transfusion React Date Transfusion React Time Tx React Symptoms Reaction Clerical Check Lab Clerical Err Check React Component Return Volume Returned Pre-Trans Blood Type Pre-Trans Vis Hemolysis Pre-Trans DANTE (Negative) Pre-Trans DANTE IgG (Negative) Pre-Trans DANTE Poly (Negative) Pre-Trans DANTE C3b, C3d (Negative) Post-Trans Blood Type Post-Tx Visible Hemolys Post-Trans DANTE (Negative) Post-Trans DANTE IgG (Negative) Post-Trans DANTE Poly (Negative) Post-Trans DANTE C3b, C3d (Negative) Post-Trans Ur Hemoglobin Reaction Path Interpret Transfusion Serv Com 11/16/19 11/16/19 11/14/19 Range/Units 12:28 04:26 18:05 Hgb Hct PT (9.0-12.0) Seconds INR (0.9-1.1) Fibrinogen 129 L (184-400) mg/dl Sodium (136-145) mmol/L Potassium (3.5-5.1) mmol/L Chloride (98-107) mmol/L Carbon Dioxide (21-32) mmol/L Anion Gap (3-11) BUN (7-18) mg/dl Creatinine (0.6-1.2) mg/dl Est Cr Clr Drug Dosing ml/min Est GFR ( Amer) Est GFR (Non-Af Amer) BUN/Creatinine Ratio (10-20) Glucose (70-99) mg/dl Calcium (8.5-10.1) mg/dl Ionized Calcium (1.12-1.32) mmol/L Phosphorus (2.5-4.9) mg/dl Magnesium (1.8-2.4) mg/dl Total Bilirubin (0.2-1) mg/dl AST (15-37) U/L ALT (12-78) U/L Alkaline Phosphatase (45-117) U/L Total Protein (6.4-8.2) gm/dl Albumin (3.4-5.0) gm/dl Globulin (2.5-4.0) gm/dl Albumin/Globulin Ratio (0.9-2) Urine Blood (Negative) Urine RBC (Auto) (0-4) /hpf Blood Type A Positive Antibody Screen NEGATIVE Crossmatch See Detail Transfusion React Date 11/16/19 Transfusion React Time 1208 Tx React Symptoms HYPOXIA Reaction Clerical Check None Found Lab Clerical Err Check None Found React Component Return POOLED CRYO Volume Returned 10 Pre-Trans Blood Type A POSITIVE Pre-Trans Vis Hemolysis No Pre-Trans DANTE Negative (Negative) Pre-Trans DANTE IgG Neg (Negative) Pre-Trans DANTE Poly Neg (Negative) Pre-Trans DANTE C3b, C3d Neg (Negative) Post-Trans Blood Type A POSITIVE Post-Tx Visible Hemolys No Post-Trans DANTE Negative (Negative) Post-Trans DANTE IgG Neg (Negative) Post-Trans DANTE Poly Neg (Negative) Post-Trans DANTE C3b, C3d Neg (Negative) Post-Trans Ur Hemoglobin TRACE BLOOD Reaction Path Interpret Transfusion Serv Com Pending Medications Administered Current Inpatient Medications Acetaminophen (Acetaminophen 325 Mg Tab) 650 mg PO Q4H PRN PRN Reason: Pain or Fever Stop: 12/10/19 16:09 Al Hydrox/Mg Hydrox/Simethicone (Aluminum/Magnesium Susp 30 Ml Udc) 15 ml PO Q4H PRN PRN Reason: Dyspepsia Stop: 12/10/19 16:09 Amiodarone HCl (Amiodarone 200 Mg Tab) 200 mg PO BIDM [facility] Stop: 12/16/19 16:59 Last Admin: 11/16/19 17:22 Dose: 200 mg Documented by: Aspirin (Aspirin 81 Mg Ectab) 81 mg PO QAM [facility] Stop: 12/11/19 08:59 Last Admin: 11/16/19 08:37 Dose: 81 mg Documented by: Atorvastatin Calcium (Atorvastatin 40 Mg Tab) 40 mg PO PM [facility] Stop: 12/10/19 20:59 Last Admin: 11/16/19 20:09 Dose: 40 mg Documented by: Bisacodyl (Bisacodyl 5 Mg Tabec) 5 mg PO BID PRN PRN Reason: Constipation Stop: 12/10/19 16:14 Calamine/Phenol (Menthol-Zinc Oxide 360 Appln/120 Gm Tube) 1 appln EXT TID PRN PRN Reason: Skin Irritation Stop: 12/10/19 16:09 Enoxaparin Sodium (Enoxaparin 80 Mg/0.8 Ml Syr) 80 mg SQ Q12 [facility] Stop: 12/12/19 10:59 Last Admin: 11/14/19 21:40 Dose: 80 mg Documented by: Fluoxetine HCl (Fluoxetine Hcl 20 Mg Cap) 20 mg PO QAM [facility] Stop: 12/11/19 08:59 Last Admin: 11/16/19 08:37 Dose: 20 mg Documented by: Gabapentin (Gabapentin 100 Mg Cap) 100 mg PO PM@2030 [facility] Stop: 12/10/19 20:29 Last Admin: 11/14/19 22:08 Dose: Not Given Documented by: Heparin Sodium (Beef Lung) (Heparin 10 Unit/Ml 5 Ml Flush) 5 ml FLUSH PRN PRN PRN Reason: Flush Stop: 12/15/19 22:46 Norepinephrine Bitartrate 8 mg (/ Dextrose) 508 mls @ 15.526 mls/hr IV .Q24H [facility]; Protocol Stop: 12/14/19 22:14 Last Titration: 11/16/19 11:35 Dose: Infused Documented by: Parenteral Electrolytes (Normosol-R) 1,000 mls @ 125 mls/hr IV .Q8H [facility] Stop: 12/14/19 23:14 Last Admin: 11/17/19 04:06 Dose: 125 mls/hr Documented by: Loperamide HCl (Loperamide Hcl 2 Mg Cap) 2 mg PO TID PRN PRN Reason: Diarrhea Stop: 12/10/19 16:21 Metoprolol Succinate (Metoprolol Succ 25mg Ext Rel Tab) 25 mg PO QPM [facility] Stop: 12/12/19 20:59 Last Admin: 11/14/19 21:31 Dose: Not Given Documented by: Metoprolol Tartrate (Metoprolol Tartrate 1 Mg/Ml Vial) 5 mg IV Q4 PRN PRN Reason: sbp> 185, dbp >95, HR >120 Stop: 12/10/19 16:09 Metoprolol Tartrate (Metoprolol Tartrate 25 Mg Tab) 12.5 mg PO Q8 [facility] Stop: 12/11/19 20:59 Last Admin: 11/12/19 08:06 Dose: 12.5 mg Documented by: Mirtazapine (Mirtazapine Tab 15 Mg Tab) 15 mg PO PM@2030 [facility] Stop: 12/10/19 20:29 Last Admin: 11/16/19 20:10 Dose: 15 mg Documented by: Multivitamins (Multivitamin Tab) 1 tab PO DAILY [facility] Stop: 12/11/19 08:59 Last Admin: 11/16/19 08:37 Dose: 1 tab Documented by: Ondansetron HCl (Ondansetron 4 Mg Od Tab) 4 mg PO Q6H PRN PRN Reason: Nausea Stop: 12/10/19 16:18 Ondansetron HCl (Ondansetron Inj 2 Mg/Ml 2 Ml Vial) 4 mg IV Q6H PRN PRN Reason: Nausea Stop: 12/10/19 16:09 Last Admin: 11/14/19 21:39 Dose: 4 mg Documented by: Pantoprazole Sodium (Pantoprazole 40 Mg Tab) 40 mg PO QAM [facility] Stop: 12/11/19 08:59 Last Admin: 11/16/19 08:37 Dose: 40 mg Documented by: Thiamine HCl (Thiamine Hcl 100 Mg Tab) 100 mg PO QAM [facility] Stop: 12/11/19 08:59 Last Admin: 11/16/19 08:38 Dose: 100 mg Documented by: Critical Care Time Critical Care Time: Yes Total Critical Care Time: 50 I have personally spent 50 minutes of critical care time in the direct management of this patient. This is a life/limb threatening event. This includes time spent evaluating patient, direct bedside care, chart review, placing orders, interpretation of diagnostic studies, discussion with consultants, patient, and/or family members regarding treatment decisions, as well as other required patient management activities. This time is exclusive of all separately billable procedures, and teaching time and separate from and in addition to any other critical care service time. Resident Activity Tracking Resident Involvement: Resident Care Provided Care Provided: Adult [facility] Medicine (Critical Care)
[2019-11-17] MEDS: NOREPINEPHRINE BIT INJ 8 MG in DEXTROSE 5% 500 ML IV SCH (07:13)
[2019-11-17] MEDS: MULTIVITAMIN TAB PO SCH (08:07)
[2019-11-17] MEDS: ASPIRIN 81 MG ECTAB PO SCH (08:07)
[2019-11-17] MEDS: FLUOXETINE HCL 20 MG CAP PO SCH (08:07)
[2019-11-17] MEDS: AMIODARONE 200 MG TAB PO SCH ×2 (08:07→18:01)
[2019-11-17] MEDS: PANTOprazole 40 MG TAB PO SCH (08:07)
[2019-11-17] MEDS: THIAMINE HCL 100 MG TAB PO SCH (08:07)
--- NOTE | 2019-11-17 09:32 | Billing Data ---
Date of Service November 17, 2019 Coding Level of Care Code Critical Care 1st - mins
[2019-11-17] MEDS ORDERED: CALCIUM GLUCONATE 10% 1,000 MG in SODIUM CHLORIDE 0.9% 50 ML IV ONE (10:00)
[2019-11-17 10:08] LABS: Hematocrit (blood only) 24.8 % (37-47); Hemoglobin 8.7 g/dL (12.0-16.0)
[2019-11-17] MEDS: METOPROLOL TARTRATE 25 MG TAB PO SCH ×2 (10:52→21:07)
--- NOTE | 2019-11-17 15:12 | Hospitalist Progress Note ---
Date of Service November 17, 2019 Assessment & Plan (1) Retroperitoneal bleed: Noted on CT a/p on 11/14. - Required 5 units PRBCs, 4 FFP, and 1 cryo all on 11/14 & 11/15. - IVC filter placed on 11/[address] Covarrubias - Now off all anticoagulation (2) Pulmonary embolism: CTA chest on 11/09 shows bilateral pulmonary emboli. Doppler on 11/09 showed left popliteal DVT. - Heparin gtt started on admission; held temporarily due to concern for life-threatening bleed, then restarted the morning of 11/10. - Stopped for good on 11/14 with RP bleed - Now with IVC filter (3) History of cerebrovascular accident: History of large left MCA stroke in 05/2019, treated at [facility]. Had hemorrhagic conversion of the stroke. Thought to be thrombotic. Hypercoagulable work-up was largely negative with some testing planned to be repeated in 12 weeks after discharge. Unclear if any of this was done. - Continue ASA, statin - Neurology consulted - Appreciate consult (4) Sinus tachycardia: Patient has a known history of atrial tachycardia. Implanted loop recorder put in at [place] during admission for CVA. - HR at [facility] was reportedly as high as 150, again possibly due to hypovolemia and PE. - Today generally normal. High as 115 in context of low BP above. Sometimes down in the 70 range, but then will bump up to 110 again. - Cardiology consulted -> Appreciate recs (5) UTI (urinary tract infection): Patient has an E. coli UTI documented on 11/05. She had 3 days of cefdinir prior to admission. (Started on 11/05). - Finished ceftriaxone x 3 days (6) Dysphagia: Due to prior stroke. - Aspiration precautions were undertaken - PERSONAL INVESTMENT ADVISER consulted - Appreciate recs (7) GERD (gastroesophageal reflux disease): - Continue pantoprazole (8) Major depressive disorder: Pleasant affect today despite medical issues. - Continue fluoxetine, mirtazapine, and gabapentin Admission and Anticipated Discharge Date Admission Date: November 11, 2019 Subjective No major issues today. Reports no fevers/chills, chest pain, shortness of breath, abdominal pain, nausea, or vomiting. Physical Exam Constitutional: WD/WN, vitals as above Eyes: EOM intact bilaterally; no conjunctival abnormality ENMT: external ear and nose normal, oropharynx normal Neck: trachea midline, no thyromegaly normal visual inspection Respiratory: normal respiratory effort, lungs clear to auscultation no respiratory distress Cardiovascular: RRR, no murmur, no edema Gastrointestinal (Abdomen): Inspection/Auscultation: abdomen normal to inspection; abdomen not distended Musculoskeletal: no cyanosis or clubbing, extremities motor strength 5/5 Skin: no rashes, warm and dry Neurologic: awake; + does not move all extremities (Right hemiplegia) Psychiatric: Orientation: alert, oriented to person and cooperative Results & Data Results & Data ([facility]) Vital Signs (Past 12 Hours) Vital Signs Temp Pulse Resp BP Pulse Ox 11/17/19 14:07 75 20 95/58 L 94 11/17/19 12:07 36.9 C 78 16 94/63 L 97 11/17/19 10:07 83 15 122/65 94 11/17/19 10:00 102 H 15 95 11/17/19 08:07 73 17 101/69 94 11/17/19 08:00 67 11/17/19 06:00 80 13 92/54 L 94 11/17/19 05:00 81 16 95 11/17/19 04:00 36.7 C 88 14 117/67 92 PG Care Time/CCT Total # of Minutes Spent Total Time Spent with Patient: Total time spent is greater than 50% in coordination of care (as documented) at patient's floor/unit and/or counseling patient: Coding Level of Care Code 93295 Subseq Hosp Care Lvl 3 Diagnoses Retroperitoneal bleed R58 Pulmonary embolism I26.99 History of cerebrovascular accident Z86.73 Sinus tachycardia R00.0 UTI (urinary tract infection) N30.00 Hematuria presence: without hematuria Urinary tract infection type: acute cystitis Dysphagia R13.10 GERD (gastroesophageal reflux disease) K21.9 Major depressive disorder F32.9 (1) UTI (urinary tract infection) Hematuria presence: without hematuria Urinary tract infection type: acute cystitis Qualified Code(s): N30.00 - Acute cystitis without hematuria
[2019-11-17 16:59] LABS: Hematocrit (blood only) 28.4 % (37-47); Hemoglobin 9.8 g/dL (12.0-16.0)
[2019-11-17] MEDS: ATORVASTATIN 40 MG TAB PO SCH (21:06)
[2019-11-17] MEDS: MIRTAZAPINE TAB 15 MG TAB PO SCH (21:07)
--- NOTE | 2019-11-18 05:42 | Critical Care Progress Note ---
Date of Service November 18, 2019 Assessment & Plan (1) Pulmonary embolism: Reason Critically Ill: Patient is a 49y/o female with past history significant for large L MCA and small R MCA stroke with cerebral edema, and subsequent hemorrhagic conversion (05/2019); transferred to the ICU for concern of undifferentiated shock in the setting of persistent tachycardia, and hypotension with limited urinary output and increasing peripheral edema. Now with acute retroperitoneal hematoma, demonstrated on CT from 11/14 and in the setting of continued worsening anemia. Started on transfusion protocol has received total 5 units of PRBCs, and 4 units of FFP. Neuro: - CAM ICU negative - baseline of expressive aphasia, with R-sided hemiparesis Cardiac/Vascular: - Improved tachycardia, hypotensive, and with 2+ pitting edema to b/l lower extremities and RUE - Venous doppler (11/09) demonstrated: 1. There is nearly occlusive deep venous thrombosis identified in the left popliteal vein which extends into the calf. 2. There is no sonographic evidence of deep venous thrombosis identified in t he right lower extremity. - Echo (11/10): EF 50-55%, no evidence of right ventricular pressure or volume overload, normal RV size and function - repeat Echo today demonstrated - EKG (11/13) sinus tachycardia, no ST abnormalities - Transitioned to 200 mg p.o. amiodarone twice daily for control of tachycardia - IVC filter placed on 11/14 by vascular surgery - Started on midodrine 5 mg 3 times daily, for overall improvement in cardiac output -Given patient's low protein and albumin, increasing fluid load with potentially increase overall peripheral edema and increased congestion -Given propensity for sinus tachycardia/SVT, heart rate modulators would be counterproductive Respiratory: - Chest CTA 11/09 demonstrated bilateral segmental and subsegmental pulmonary emboli, moderate to large pleural effusions - CXR did not demonstrate concern for pneumothorax following loss of right IJ - no increased oxygen requirements GI/Nutrition: - history of Crohn's disease - Acute retroperitoneal hematoma established on CT from 11/14 - CT abd/pelv 11/10 demonstrated: 1. Findings suggest a nonspecific colitis. Clinical correlation will be required. 2. Severe hepatic steatosis. 3. There is evidence of fluid overload including body wall edema, moderate pleural effusions, and a small volume of abdominopelvic ascites. 4. Retained cortical contrast is noted in the kidneys. This could be seen in the setting of acute renal injury and clinical correlation will be required. 5. There is no hyperdense fluid collection identified to suggest hematoma. - CT abd/pelv 11/14 demonstrated: 1. Acute retroperitoneal hematoma of the right iliacus muscle and to a lesser extent within the psoas and iliopsoas distributions. 2. Wall thickening throughout the colon is re-demonstrated. New areas of wall thickening are noted within several loops of jejunum. Findings are suggestive of a nonspecific enterocolitis. 3. Fluid overload with moderate pleural effusions, anasarca and small volume of abdominopelvic ascites. 4. Severe hepatic steatosis. 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, and loss of overall muscle mass demonstrated by cheek and temporal wasting, in the setting of hypoproteinemia and hypoalbuminemia Renal/Lytes: -Calcium 6.6, mag 2.1, phos 2.7 -Received 1 g IV calcium gluconate overnight -likely contributions from transfusions -Continue to monitor and replete per ICU protocol : - Plata catheter (placed 11/10) -Continues to have low urinary output - continue to monitor output ENDO: - TSH 2.67 on admission, no previous history of diabetes or thyroid disorder - random Cortisol 23.99 - Received 50 mg Solu-Cortef x1 HEME: - Hgd 8.6, fibrinogen 178 - received total of 5 unit of PRBCs, and 4 units of FFP, 2.5mg of Vitamin K, and 1 unit cryoprecipitate - Transfusion reaction labs negative - coagulopathy without clear source; hyper-coag work-up negative per review of [facility] records - INR downtrending to 1.2 (received only Warfarin 5mg on 11/12) ID: - pro-samantha 0.2 - prior to hospitalization had a non-complicated UTI that was treated as an outpatient with cefdinir before admission and then completed treatment with three days of Rocephin (11/10-11/12) - no current concern for infectious source - Blood culture from 11/11 with no growth at 48hrs Lines/IV Access: - PIV x1 DVT Prophylaxis: - Hold Lovenox in the setting of retroperitoneal bleed, in future could be restarted on Lovenox as outpatient after continuing to remain stable - IVC filter (2) Protein calorie malnutrition: Admission and Anticipated Discharge Date Admission Date: November 11, 2019 Supervising Physician Co-Signing Physician Notes Dr. Carter was resident physician during care of patient. I separately evaluated patient for armstrong portions of the history and the exam. I was present during the critical portion of medical decision making, and I discussed the case with the resident. I generally agree with the findings and plan. Patient has had marginal urine output however creatinine still appropriate. We will start midodrine today for relative hypotension, echo reviewed: Minimal concern for inability to tolerate increased afterload from left-sided heart. No obvious pulmonary hypertension from thromboembolic disease noted. Patient remains critically ill due to hypotension. Subjective Patient with no acute events overnight, did not require any additional transfusions. Denies abdominal pain, nausea, vomiting, shortness breath, dizziness, lightheadedness, chest pain, palpitations. Review of Systems Review of Systems: All systems reviewed & are unremarkable except as noted in Subjective Physical Exam Constitutional: WD/WN, vitals as above + malnourished Temporal & cheek wasting Eyes: PERRL, conjunctivae normal, anicteric sclerae Neck: trachea midline, no thyromegaly Respiratory: normal respiratory effort; no respiratory distress, no labored breathing and no cough Auscultation: no diminished lung sounds, no crackles, no rales and no wheezes Cardiovascular: Rate/Rhythm: + tachycardic Heart Sounds: no gallop, no murmur and no cardiac rub Vessels: no JVD Extremities: + edema (b/l 3+ pitting edema to thigh, 2+ pitting edema to RUE) Gastrointestinal (Abdomen): normal bowel sounds, soft, nontender, no hepatosplenomegaly Musculoskeletal: Extremities: + limited ROM of extremities (RUE & RLE) Skin: + ecchymosis (LUE) Neurologic: + focal motor deficit (R sided hemiparesis) Speech / Cognition: + abnormal speech (expressive aphasia) Cranial Nerves: PERRL, EOM intact bilaterally, normal facial strength, tongue midline, normal hearing, able to rotate head bilaterally and able to elevate shoulders bilaterally Results & Data Results & Data ([facility]) Vital Signs (Past 12 Hours) Vital Signs Temp Pulse Resp BP Pulse Ox 11/18/19 00:07 65 17 78/54 L 11/18/19 00:00 68 14 11/17/19 23:00 104 H 18 95 11/17/19 22:30 71 16 95 11/17/19 22:07 77 17 99/60 L 95 11/17/19 22:00 76 19 95 11/17/19 21:30 76 16 94 11/17/19 21:05 103 H 16 101/66 96 11/17/19 21:00 74 16 96 11/17/19 20:30 75 17 96 11/17/19 20:07 74 17 97/65 L 97 11/17/19 20:00 36.8 C 83 16 99 11/17/19 19:30 87 18 95 11/17/19 19:00 80 17 96 11/17/19 18:30 88 19 93 11/17/19 18:07 109 H 14 106/73 95 11/17/19 18:00 116 H 17 94 Laboratory Results 11/18/19 11/18/19 11/18/19 Range/Units 05:08 05:08 05:08 Hgb 8.6 L (12.0-16.0) g/dL Hct 25.2 L (37-47) % PT 12.1 H (9.0-12.0) Seconds INR 1.2 H (0.9-1.1) Sodium 142 (136-145) mmol/L Potassium 3.2 L D (3.5-5.1) mmol/L Chloride 114 H (98-107) mmol/L Carbon Dioxide 25 (21-32) mmol/L Anion Gap 3.0 (3-11) BUN 8 (7-18) mg/dl Creatinine 0.47 L (0.6-1.2) mg/dl Est Cr Clr Drug Dosing 161.0 ml/min Est GFR ( Amer) 132.6 Est GFR (Non-Af Amer) 114.4 BUN/Creatinine Ratio 16.9 (10-20) Glucose 69 L (70-99) mg/dl Calcium 6.8 L (8.5-10.1) mg/dl Ionized Calcium (1.12-1.32) mmol/L Phosphorus 1.9 L (2.5-4.9) mg/dl Magnesium 2.1 (1.8-2.4) mg/dl Total Bilirubin 0.7 (0.2-1) mg/dl AST 27 (15-37) U/L ALT 20 (12-78) U/L Alkaline Phosphatase 105 (45-117) U/L Total Protein 3.6 L (6.4-8.2) gm/dl Albumin 1.1 L (3.4-5.0) gm/dl Globulin 2.5 (2.5-4.0) gm/dl Albumin/Globulin Ratio 0.4 L (0.9-2) Crossmatch 11/17/19 11/17/19 11/17/19 Range/Units 16:49 16:13 16:13 Hgb 9.8 L Cancelled (12.0-16.0) g/dL Hct 28.4 L Cancelled (37-47) % PT (9.0-12.0) Seconds INR (0.9-1.1) Sodium (136-145) mmol/L Potassium (3.5-5.1) mmol/L Chloride (98-107) mmol/L Carbon Dioxide (21-32) mmol/L Anion Gap (3-11) BUN (7-18) mg/dl Creatinine (0.6-1.2) mg/dl Est Cr Clr Drug Dosing ml/min Est GFR ( Amer) Est GFR (Non-Af Amer) BUN/Creatinine Ratio (10-20) Glucose (70-99) mg/dl Calcium (8.5-10.1) mg/dl Ionized Calcium 1.06 L (1.12-1.32) mmol/L Phosphorus (2.5-4.9) mg/dl Magnesium (1.8-2.4) mg/dl Total Bilirubin (0.2-1) mg/dl AST (15-37) U/L ALT (12-78) U/L Alkaline Phosphatase (45-117) U/L Total Protein (6.4-8.2) gm/dl Albumin (3.4-5.0) gm/dl Globulin (2.5-4.0) gm/dl Albumin/Globulin Ratio (0.9-2) Crossmatch 11/17/19 11/17/19 11/14/19 Range/Units 09:48 09:48 18:05 Hgb 8.7 L (12.0-16.0) g/dL Hct 24.8 L (37-47) % PT (9.0-12.0) Seconds INR (0.9-1.1) Sodium (136-145) mmol/L Potassium (3.5-5.1) mmol/L Chloride (98-107) mmol/L Carbon Dioxide (21-32) mmol/L Anion Gap (3-11) BUN (7-18) mg/dl Creatinine (0.6-1.2) mg/dl Est Cr Clr Drug Dosing ml/min Est GFR ( Amer) Est GFR (Non-Af Amer) BUN/Creatinine Ratio (10-20) Glucose (70-99) mg/dl Calcium (8.5-10.1) mg/dl Ionized Calcium 1.08 L (1.12-1.32) mmol/L Phosphorus (2.5-4.9) mg/dl Magnesium (1.8-2.4) mg/dl Total Bilirubin (0.2-1) mg/dl AST (15-37) U/L ALT (12-78) U/L Alkaline Phosphatase (45-117) U/L Total Protein (6.4-8.2) gm/dl Albumin (3.4-5.0) gm/dl Globulin (2.5-4.0) gm/dl Albumin/Globulin Ratio (0.9-2) Crossmatch See Detail Medications Administered Current Inpatient Medications Acetaminophen (Acetaminophen 325 Mg Tab) 650 mg PO Q4H PRN PRN Reason: Pain or Fever Stop: 12/10/19 16:09 Al Hydrox/Mg Hydrox/Simethicone (Aluminum/Magnesium Susp 30 Ml Udc) 15 ml PO Q4H PRN PRN Reason: Dyspepsia Stop: 12/10/19 16:09 Amiodarone HCl (Amiodarone 200 Mg Tab) 200 mg PO BIDM REPLACED BY [facility] Stop: 12/16/19 16:59 Last Admin: 11/18/19 08:06 Dose: 200 mg Documented by: Aspirin (Aspirin 81 Mg Ectab) 81 mg PO QAM REPLACED BY [facility] Stop: 12/11/19 08:59 Last Admin: 11/18/19 08:06 Dose: 81 mg Documented by: Atorvastatin Calcium (Atorvastatin 40 Mg Tab) 40 mg PO PM REPLACED BY [facility] Stop: 12/10/19 20:59 Last Admin: 11/17/19 21:06 Dose: 40 mg Documented by: Bisacodyl (Bisacodyl 5 Mg Tabec) 5 mg PO BID PRN PRN Reason: Constipation Stop: 12/10/19 16:14 Calamine/Phenol (Menthol-Zinc Oxide 360 Appln/120 Gm Tube) 1 appln EXT TID PRN PRN Reason: Skin Irritation Stop: 12/10/19 16:09 Fluoxetine HCl (Fluoxetine Hcl 20 Mg Cap) 20 mg PO QAM REPLACED BY [facility] Stop: 12/11/19 08:59 Last Admin: 11/18/19 08:06 Dose: 20 mg Documented by: Heparin Sodium (Beef Lung) (Heparin 10 Unit/Ml 5 Ml Flush) 5 ml FLUSH PRN PRN PRN Reason: Flush Stop: 12/15/19 22:46 Loperamide HCl (Loperamide Hcl 2 Mg Cap) 2 mg PO TID PRN PRN Reason: Diarrhea Stop: 12/10/19 16:21 Metoprolol Tartrate (Metoprolol Tartrate 25 Mg Tab) 12.5 mg PO BID REPLACED BY [facility] Stop: 12/17/19 09:59 Last Admin: 11/18/19 08:06 Dose: Not Given Documented by: Midodrine (Midodrine Hcl 2.5 Mg Tab) 5 mg PO TID@0800,1200,1700 REPLACED BY [facility] Stop: 12/18/19 11:59 Last Admin: 11/18/19 09:40 Dose: 5 mg Documented by: Mirtazapine (Mirtazapine Tab 15 Mg Tab) 15 mg PO PM@2030 REPLACED BY [facility] Stop: 12/10/19 20:29 Last Admin: 11/17/19 21:07 Dose: 15 mg Documented by: Multivitamins (Multivitamin Tab) 1 tab PO DAILY REPLACED BY [facility] Stop: 12/11/19 08:59 Last Admin: 11/18/19 08:06 Dose: 1 tab Documented by: Ondansetron HCl (Ondansetron 4 Mg Od Tab) 4 mg PO Q6H PRN PRN Reason: Nausea Stop: 12/10/19 16:18 Ondansetron HCl (Ondansetron Inj 2 Mg/Ml 2 Ml Vial) 4 mg IV Q6H PRN PRN Reason: Nausea Stop: 12/10/19 16:09 Last Admin: 11/14/19 21:39 Dose: 4 mg Documented by: Pantoprazole Sodium (Pantoprazole 40 Mg Tab) 40 mg PO QAM REPLACED BY [facility] Stop: 12/11/19 08:59 Last Admin: 11/18/19 08:06 Dose: 40 mg Documented by: Thiamine HCl (Thiamine Hcl 100 Mg Tab) 100 mg PO QAM [facility] Stop: 12/11/19 08:59 Last Admin: 11/18/19 08:06 Dose: 100 mg Documented by: Critical Care Time Critical Care Time: Yes Total Critical Care Time: 40 I have personally spent 40 minutes of critical care time in the direct management of this patient. This is a life/limb threatening event. This includes time spent evaluating patient, direct bedside care, chart review, placing orders, interpretation of diagnostic studies, discussion with consultants, patient, and/or family members regarding treatment decisions, as well as other required patient management activities. This time is exclusive of all separately billable procedures, and teaching time and separate from and in addition to any other critical care service time. Resident Activity Tracking Resident Involvement: Resident Care Provided Care Provided: Adult [facility] Medicine (Critical Care)
[2019-11-18 05:43] LABS: INR 1.2 (0.9-1.1); Prothrombin Time 12.1 Seconds (9.0-12.0)
[2019-11-18 05:52] LABS: Albumin Globulin Ratio 0.4 (0.9-2); Albumin Level 1.1 gm/dl (3.4-5.0); BUN Creatinine Ratio 16.9 (10-20); Bilirubin,Total 0.7 mg/dl (0.2-1); Calcium 6.8 mg/dl (8.5-10.1); Est GFR (African American) 132.6; Est GFR (Non-African American) 114.4; Globulin 2.5 gm/dl (2.5-4.0); Magnesium 2.1 mg/dl (1.8-2.4); Phosphorus 1.9 mg/dl (2.5-4.9); Potassium 3.2 mmol/L (3.5-5.1); Total Protein 3.6 gm/dl (6.4-8.2)
[2019-11-18 06:08] LABS: Hematocrit (blood only) 25.2 % (37-47); Hemoglobin 8.6 g/dL (12.0-16.0)
[2019-11-18] MEDS: AMIODARONE 200 MG TAB PO SCH ×2 (08:06→17:32)
[2019-11-18] MEDS: ASPIRIN 81 MG ECTAB PO SCH (08:06)
[2019-11-18] MEDS: FLUOXETINE HCL 20 MG CAP PO SCH (08:06)
[2019-11-18] MEDS: METOPROLOL TARTRATE 25 MG TAB PO SCH ×2 (08:06→20:33)
[2019-11-18] MEDS: PANTOprazole 40 MG TAB PO SCH (08:06)
[2019-11-18] MEDS: MULTIVITAMIN TAB PO SCH (08:06)
[2019-11-18] MEDS: THIAMINE HCL 100 MG TAB PO SCH (08:06)
[2019-11-18] MEDS: MIDODRINE HCL 2.5 MG TAB PO SCH ×2 (09:40→17:31)
--- NOTE | 2019-11-18 09:48 | Billing Data ---
Date of Service November 18, 2019 Coding Level of Care Code 45251 Subseq Hosp Care Lvl 3
--- NOTE | 2019-11-18 14:10 | Hospitalist Progress Note ---
Date of Service November 18, 2019 Assessment & Plan (1) Retroperitoneal bleed: Noted on CT a/p on 11/14. - Required 5 units PRBCs, 4 FFP, and 1 cryo all on 11/14 & 11/15. - IVC filter placed on 11/[address] Covarrubias - Now off all anticoagulation -> Hgb down 1 point today to 8.6, though bouncing slightly. (2) Pulmonary embolism: CTA chest on 11/09 shows bilateral pulmonary emboli. Doppler on 11/09 showed left popliteal DVT. - Heparin gtt started on admission; held temporarily due to concern for life- threatening bleed, then restarted the morning of 11/10. - Stopped for good on 11/14 with RP bleed - Now with IVC filter (3) History of cerebrovascular accident: History of large left MCA stroke in 05/2019, treated at [facility]. Had hemorrhagic conversion of the stroke. Thought to be thrombotic. Hypercoagulable work-up was largely negative with some testing planned to be repeated in 12 weeks after discharge. Unclear if any of this was done. - Continue ASA, statin - Neurology consulted - Appreciate consult (4) Sinus tachycardia: Patient has a known history of atrial tachycardia. Implanted loop recorder put in at [place] during admission for CVA. - HR at [place] was reportedly as high as 150, again possibly due to hypovolemia and PE. - Today generally normal. High as 115 in context of low BP above. Sometimes down in the 70 range, but then will bump up to 110 again. - Cardiology consulted -> Appreciate recs - Started amiodarone 200 mg PO BID on 11/15; metoprolol 12.5 mg PO BID on 11/16. Midodrine 5 mg PO BID started on 11/17 for continued low blood pressure. (5) UTI (urinary tract infection): Patient has an E. coli UTI documented on 11/05. She had 3 days of cefdinir prior to admission. (Started on 11/05). - Finished ceftriaxone x 3 days (6) Dysphagia: Due to prior stroke. 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 * Alternate solids and liquids * Alert and upright for meals * Meds in a carrier (applesauce/pudding) * Single bites/small sips (7) GERD (gastroesophageal reflux disease): - Continue pantoprazole (8) Major depressive disorder: Pleasant affect today despite medical issues. - Continue fluoxetine, mirtazapine, and gabapentin Admission and Anticipated Discharge Date Admission Date: November 11, 2019 Subjective Reports some mild shortness of breath, but no cough. Otherwise stable. Reports no fevers/chills, chest pain, abdominal pain, nausea, or vomiting. Physical Exam Constitutional: WD/WN, vitals as above Eyes: EOM intact bilaterally; no conjunctival abnormality ENMT: external ear and nose normal, oropharynx normal Neck: trachea midline, no thyromegaly normal visual inspection Respiratory: normal respiratory effort, lungs clear to auscultation no respiratory distress Cardiovascular: RRR, no murmur, no edema Gastrointestinal (Abdomen): Inspection/Auscultation: abdomen normal to inspection; abdomen not distended Musculoskeletal: no cyanosis or clubbing, extremities motor strength 5/5 Skin: no rashes, warm and dry Neurologic: awake; + does not move all extremities (Right hemiplegia) Psychiatric: Orientation: alert, oriented to person and cooperative Results & Data Results & Data ([facility]) Vital Signs (Past 12 Hours) Vital Signs Pulse Resp BP Pulse Ox 11/18/19 06:00 68 14 96 11/18/19 05:00 72 15 99 11/18/19 04:05 64 14 92/54 L 96 11/18/19 04:00 64 14 96 11/18/19 03:49 62 23 78/54 L 95 11/18/19 03:00 67 13 94 PG Care Time/CCT Total # of Minutes Spent Total Time Spent with Patient: Total time spent is greater than 50% in coordination of care (as documented) at patient's floor/unit and/or counseling patient: Coding Level of Care Code 89274 Subseq Hosp Care Lvl 3 Diagnoses Retroperitoneal bleed R58 Pulmonary embolism I26.99 History of cerebrovascular accident Z86.73 Sinus tachycardia R00.0 UTI (urinary tract infection) N30.00 Hematuria presence: without hematuria Urinary tract infection type: acute cystitis Dysphagia R13.10 GERD (gastroesophageal reflux disease) K21.9 Major depressive disorder F32.9 (1) UTI (urinary tract infection) Hematuria presence: without hematuria Urinary tract infection type: acute cystitis Qualified Code(s): N30.00 - Acute cystitis without hematuria
[2019-11-18] MEDS: MIRTAZAPINE TAB 15 MG TAB PO SCH (20:33)
[2019-11-18] MEDS: ATORVASTATIN 40 MG TAB PO SCH (20:33)
[2019-11-19 04:24] LABS: Hematocrit (blood only) 27.5 % (37-47); Hemoglobin 9.2 g/dL (12.0-16.0)
[2019-11-19 04:33] LABS: INR 1.1 (0.9-1.1); Prothrombin Time 11.9 Seconds (9.0-12.0)
[2019-11-19 04:41] LABS: Albumin Level 1.1 gm/dl (3.4-5.0); BUN Creatinine Ratio 19.8 (10-20); Calcium 6.8 mg/dl (8.5-10.1); Creatinine Clr Calc Pharmacy 161.6 ml/min; Est GFR (African American) 132.6; Est GFR (Non-African American) 114.4; Potassium 3.5 mmol/L (3.5-5.1)
[2019-11-19 04:45] LABS: Albumin Globulin Ratio 0.4 (0.9-2); Globulin 2.8 gm/dl (2.5-4.0); Phosphorus 1.9 mg/dl (2.5-4.9); Total Protein 3.9 gm/dl (6.4-8.2)
[2019-11-19] MEDS ORDERED: POTASSIUM PHOS 3 MMOL/1 ML INFUSION IV STA (05:03)
[2019-11-19] MEDS ORDERED: POTASSIUM PHOSPHATE 21 MMOL in SODIUM CHLORIDE 0.9% 500 ML IV ONE (05:30)
[2019-11-19] MEDS: METOPROLOL TARTRATE 25 MG TAB PO SCH ×3 (08:05→20:46)
[2019-11-19] MEDS: AMIODARONE 200 MG TAB PO SCH ×2 (08:05→17:15)
[2019-11-19] MEDS: MULTIVITAMIN TAB PO SCH (08:05)
[2019-11-19] MEDS: FLUOXETINE HCL 20 MG CAP PO SCH (08:06)
[2019-11-19] MEDS: THIAMINE HCL 100 MG TAB PO SCH (08:06)
[2019-11-19] MEDS: ASPIRIN 81 MG ECTAB PO SCH (08:06)
[2019-11-19] MEDS: PANTOprazole 40 MG TAB PO SCH (08:06)
[2019-11-19] MEDS: MIDODRINE HCL 2.5 MG TAB PO SCH ×3 (08:06→17:14)
--- NOTE | 2019-11-19 09:26 | Critical Care Progress Note ---
Date of Service November 19, 2019 Assessment & Plan (1) Pulmonary embolism: Reason Critically Ill: [] PLAN: Neuro: History of CVA followed with hemorrhagic conversion -This is a medical contraindication to thrombolytic therapy Hemiplegia and hemiparesis following cerebral infarction affecting right dominant side -Physical therapy and Occupational Therapy shelter resident secondary to significant functional deficits Resp: Bilateral pleural effusions -As a consequence of severe protein calorie malnutrition -Given chronic appearance and lack of fever I do not believe these represent empyemas -Given significant protein calorie malnutrition I do not believe drainage of these would be advisable at risk for increased protein loss Pulmonary embolism -Systemic anticoagulation therapy contraindicated secondary to retroperitoneal hematoma -Suspect secondary to venous thromboembolism: IVC filter placed this admission CV: Hypotension: Resolved Sinus tachycardia -Reviewed cardiology notes -Continue amiodarone as beta-billy contraindicated at this time -Patient appears to be hypoperfused when tachycardia exceeds 120s Fluids/Renal: Hypophosphatemia -Enteral electrolyte replacement to minimize additional fluid Intravascular volume depletion -Complicated by severe protein calorie malnutrition and failure to thrive -Large amount of insensible losses: Weeping from IV sites: Significant peripheral edema ID: Concern for possible urinary tract infection -Completed 3 days of Rocephin which would provide adequate coverage for non-complicated UTI Afebrile GI/Nutrition: Severe protein calorie malnutrition as evidenced by albumin 1, severe peripheral edema Failure to thrive -Severe functional limitations -Severe protein calorie malnutrition -Diagnosed with major depressive disorder Heme: Acute blood loss anemia in the setting of chronic anemia -From spontaneous retroperitoneal hematoma Left popliteal DVT Pulmonary embolism -Systemic anticoagulation contraindicated secondary to retroperitoneal bleeding -Thrombolytic therapy contraindicated given history of hemorrhagic conversion of stroke -Mechanical DVT prophylaxis contraindicated secondary to venous thromboembolic disease Need for systemic anticoagulation -This will need to be addressed by primary care physician weeks to months down the road DVT prophylaxis: Pharmacologic and mechanical prophylaxis contraindicated, IVC filter in place Endocrine: ICU hyperglycemia protocol TSH within normal limits Vascular access: Peripheral IV -No vessel of adequate size for PICC line -Patient self discontinued CVC Code Status: Full -Previously refused palliative care evaluation -With additional complications it may be prudent to discuss goals of care, I believe the patient is at very high risk for both medical complications and morbidity and mortality Disposition: Acute medical conditions appear to have stabilized and is stable for downgrade out of ICU (2) Protein calorie malnutrition: (3) Retroperitoneal bleed: (4) Edema: (5) Atrial tachycardia: (6) Major depressive disorder: (7) Hypoalbuminemia due to protein-calorie malnutrition: (8) History of cerebrovascular accident: (9) Failure to thrive in adult: (10) Contraindication to anticoagulation therapy: (11) S/P insertion of IVC (inferior vena caval) filter: (12) Deep vein thrombosis (DVT) of popliteal vein of left lower extremity: (13) Contraindication to thrombolytic therapy: (14) Acute blood loss anemia: Admission and Anticipated Discharge Date Admission Date: November 11, 2019 Subjective Blood pressure improved today Patient with no acute events overnight, did not require any additional transf usions. Denies abdominal pain, nausea, vomiting, shortness breath, dizziness, lightheadedness, chest pain, palpitations. Review of Systems Review of Systems: All systems reviewed & are unremarkable except as noted in Subjective Physical Exam Physical Exam: General: No acute distress, appears older than stated age I have reviewed the recorded vital signs Neurological: RASS score: 0, Moves all left-sided extremities, Psychological: GCS 15 following complex commands Eyes: Pupils are equal, round and reactive to light, anicteric sclera. Symmetrical lids. HENT: Oropharynx Clear, moist Mucous Membranes. Neck: Supple. Symmetric. trachea midline. No thyromegaly. Cardiovascular: Normal peripheral perfusion. Distal pulses and capillary refill intact. No JVD. Respiratory: Respirations are non-labored, no accessory muscle use. Breath sounds are equal. Gastrointestinal: Soft. Non-distended. Lymphatic: No cervical lymphadenopathy. Musculoskeletal: No deformity. Severe generalized peripheral edema Constitutional: WD/WN, vitals as above + physical limitations Eyes: PERRL, conjunctivae normal, anicteric sclerae Neck: trachea midline, no thyromegaly Respiratory: normal respiratory effort; no respiratory distress, no labored breathing and no cough Auscultation: no diminished lung sounds, no crackles, no rales and no wheezes Cardiovascular: Heart Sounds: no gallop, no murmur and no cardiac rub Vessels: no JVD Extremities: + edema (b/l 3+ pitting edema to thigh, 2+ pitting edema to RUE) Gastrointestinal (Abdomen): normal bowel sounds, soft, nontender, no hepatosplenomegaly Musculoskeletal: Extremities: + limited ROM of extremities (RUE & RLE) Skin: + ecchymosis (LUE) Neurologic: + focal motor deficit (R sided hemiparesis) Speech / Cognition: + abnormal speech (expressive aphasia) Cranial Nerves: PERRL, EOM intact bilaterally, normal facial strength, tongue midline, normal hearing and able to rotate head bilaterally Results & Data Results & Data ([facility]) Vital Signs (Past 12 Hours) Vital Signs Temp Pulse Resp BP Pulse Ox 11/19/19 06:00 36.8 C 87 18 96 11/19/19 05:51 102 H 28 H 103/69 91 11/19/19 05:21 88 13 95/65 L 94 11/19/19 05:00 91 H 13 93 11/19/19 04:51 85 13 92/64 L 95 11/19/19 04:06 93 H 14 96/60 L 93 11/19/19 04:00 88 12 94 11/19/19 03:06 81 13 84/64 L 92 11/19/19 03:00 79 13 93 11/19/19 02:06 81 12 99/58 L 95 11/19/19 02:00 36.6 C 86 14 93 11/19/19 01:06 84 13 101/52 L 95 11/19/19 01:00 88 13 94 Laboratory Results 11/19/19 11/19/19 11/19/19 Range/Units 04:03 04:03 04:03 Hgb 9.2 L (12.0-16.0) g/dL Hct 27.5 L (37-47) % PT 11.9 (9.0-12.0) Seconds INR 1.1 (0.9-1.1) Sodium 142 (136-145) mmol/L Potassium 3.5 (3.5-5.1) mmol/L Chloride 114 H (98-107) mmol/L Carbon Dioxide 25 (21-32) mmol/L Anion Gap 3.0 (3-11) BUN 9 (7-18) mg/dl Creatinine 0.47 L (0.6-1.2) mg/dl Est Cr Clr Drug Dosing 161.6 ml/min Est GFR ( Amer) 132.6 Est GFR (Non-Af Amer) 114.4 BUN/Creatinine Ratio 19.8 (10-20) Glucose 75 (70-99) mg/dl Calcium 6.8 L (8.5-10.1) mg/dl Phosphorus 1.9 L (2.5-4.9) mg/dl Magnesium 2.0 (1.8-2.4) mg/dl Total Bilirubin 1.0 (0.2-1) mg/dl AST 32 (15-37) U/L ALT 21 (12-78) U/L Alkaline Phosphatase 123 H (45-117) U/L Total Protein 3.9 L (6.4-8.2) gm/dl Albumin 1.1 L (3.4-5.0) gm/dl Globulin 2.8 (2.5-4.0) gm/dl Albumin/Globulin Ratio 0.4 L (0.9-2) Coding Level of Care Code 35993 Subseq Hosp Care Lvl 3 Diagnoses Pulmonary embolism I26.99 Protein calorie malnutrition E46 Retroperitoneal bleed R58 Edema R60.9 Atrial tachycardia I47.1 Major depressive disorder F32.9 Hypoalbuminemia due to protein-calorie malnutrition E88.09; E46 History of cerebrovascular accident Z86.73 Failure to thrive in adult R62.7 Contraindication to anticoagulation therapy Z53.09 S/P insertion of IVC (inferior vena caval) filter Z95.828 Deep vein thrombosis (DVT) of popliteal vein of left lower extremity I82.432 Contraindication to thrombolytic therapy Z53.09 Acute blood loss anemia D62
--- NOTE | 2019-11-19 13:33 | Hospitalist Progress Note ---
Date of Service November 19, 2019 Assessment & Plan (1) Edema: NOT heart failure. Iatrogenic in the context of multiple transfusions for RP bleed. - Gentle Lasix given baseline low blood pressure. Will trial 10 mg IV and assess response. (2) Hypotension: Ongoing issue. On 11/10, she seemed to have acute change in her BP from 100/70 to 70/60. However, she continued to mentate well, lactate was normal, and no other evidence of end-organ damage. CT a/p showed no RP bleed (at that time) and stat echo showed good EF, no effusion, no right-heart strain. At that time, pulm/cc doctor did NOT feel her BP represented shock and declined ICU transfer. With small fluid boluses, she eventually maintained a BP ~90/60 and did ok. - Presently BP sitting around 90/60, with some lower readings in the 80s. - Continue midodrine - Continue low dose beta-billy and amiodarone for atrial tachycardia. When HR > 120 from tachycardia, she seems to lose perfusion. (3) Retroperitoneal bleed: Noted on CT a/p on 11/14. - Required 5 units PRBCs, 4 FFP, and 1 cryo all on 11/14 & 11/15. - IVC filter placed on 11/[address] Covarrubias. - Now off all anticoagulation -> Hgb stable today at 9.2, though bouncing slightly. (4) Pulmonary embolism: CTA chest on 11/09 shows bilateral pulmonary emboli. Doppler on 11/09 showed left popliteal DVT. - Heparin gtt started on admission; held temporarily due to concern for life- threatening bleed, then restarted the morning of 11/10. - Stopped for good on 11/14 with RP bleed - Now with IVC filter (5) Sinus tachycardia: Patient has a known history of atrial tachycardia. Implanted loop recorder put in at [place] during admission for CVA. - HR at [place] was reportedly as high as 150, again possibly due to hypovolemia and PE. - Cardiology consulted -> Appreciate recs - Started amiodarone 200 mg PO BID on 11/15; metoprolol 12.5 mg PO BID on 11/16. Midodrine 5 mg PO TID started on 11/17 for continued low blood pressure. (6) History of cerebrovascular accident: History of large left MCA stroke in 05/2019, treated at [facility]. Had hemorrhagic conversion of the stroke. Thought to be thrombotic. Hypercoagulable work-up was largely negative with some testing planned to be repeated in 12 weeks after discharge. Unclear if any of this was done. - Continue ASA, statin - Neurology consulted - Appreciate consult (7) UTI (urinary tract infection): Patient has an E. coli UTI documented on 11/05. She had 3 days of cefdinir prior to admission. (Started on 11/05). - Finished ceftriaxone x 3 days (8) Dysphagia: Due to prior stroke. - Aspiration precautions were undertaken - CENTRIFUGAL SEPARATOR consulted - Appreciate recs; no major concerns. * Alternate solids and liquids * Alert and upright for meals * Meds in a carrier (applesauce/pudding) * Single bites/small sips (9) GERD (gastroesophageal reflux disease): - Continue pantoprazole (10) Major depressive disorder: Pleasant affect today despite medical issues. - Continue fluoxetine, mirtazapine, and gabapentin Admission and Anticipated Discharge Date Admission Date: November 11, 2019 Subjective Still feels breathing is ok, but not ideal. Does feel swelling in the arms/legs is still present. Reports no fevers/chills, chest pain, abdominal pain, nausea, or vomiting. Physical Exam Constitutional: WD/WN, vitals as above Eyes: EOM intact bilaterally; no conjunctival abnormality ENMT: external ear and nose normal, oropharynx normal Neck: trachea midline, no thyromegaly normal visual inspection Respiratory: normal respiratory effort, lungs clear to auscultation no respiratory distress Cardiovascular: RRR, no murmur, no edema Gastrointestinal (Abdomen): Inspection/Auscultation: abdomen normal to ins pection; abdomen not distended Musculoskeletal: no cyanosis or clubbing, extremities motor strength 5/5 Skin: no rashes, warm and dry Neurologic: awake; + does not move all extremities (Right hemiplegia) Psychiatric: Orientation: alert, oriented to person and cooperative Results & Data Results & Data ([facility]) Vital Signs (Past 12 Hours) Vital Signs Temp Pulse Resp BP Pulse Ox 11/19/19 13:00 79 15 97 11/19/19 12:51 84 15 89/58 L 95 11/19/19 12:21 82 17 82/53 L 98 11/19/19 12:00 78 16 98 11/19/19 11:51 84 16 86/55 L 98 11/19/19 11:30 78 17 97 11/19/19 11:22 78 18 82/53 L 95 11/19/19 11:00 74 14 96 11/19/19 10:51 73 15 76/47 L 97 11/19/19 10:30 79 15 97 11/19/19 10:21 75 15 86/58 L 96 11/19/19 10:00 74 15 96 11/19/19 09:51 75 15 93/58 L 96 11/19/19 09:30 74 14 98 11/19/19 09:21 71 13 85/60 L 98 11/19/19 09:00 76 16 97 11/19/19 08:52 81 23 88/55 L 96 11/19/19 08:30 97 H 19 94 11/19/19 08:00 97 H 14 95 11/19/19 07:51 92 H 15 91/62 L 96 11/19/19 07:30 107 H 16 96 11/19/19 07:20 90 14 92/55 L 96 11/19/19 07:00 89 15 97 11/19/19 06:51 83 14 89/64 L 96 11/19/19 06:30 85 14 97 11/19/19 06:20 88 13 96/58 L 97 11/19/19 06:00 36.8 C 87 18 96 11/19/19 05:51 102 H 28 H 103/69 91 11/19/19 05:21 88 13 95/65 L 94 11/19/19 05:00 91 H 13 93 11/19/19 04:51 85 13 92/64 L 95 11/19/19 04:06 93 H 14 96/60 L 93 11/19/19 04:00 88 12 94 11/19/19 03:06 81 13 84/64 L 92 11/19/19 03:00 79 13 93 11/19/19 02:06 81 12 99/58 L 95 11/19/19 02:00 36.6 C 86 14 93 PG Care Time/CCT Total # of Minutes Spent Total Time Spent with Patient: Total time spent is greater than 50% in coordination of care (as documented) at patient's floor/unit and/or counseling patient: Coding Level of Care Code 69091 Subseq Hosp Care Lvl 3 Diagnoses Edema R60.9 Hypotension I95.9 Retroperitoneal bleed R58 Pulmonary embolism I26.99 Sinus tachycardia R00.0 History of cerebrovascular accident Z86.73 UTI (urinary tract infection) N30.00 Hematuria presence: without hematuria Urinary tract infection type: acute cystitis Dysphagia R13.10 GERD (gastroesophageal reflux disease) K21.9 Major depressive disorder F32.9 (1) UTI (urinary tract infection) Hematuria presence: without hematuria Urinary tract infection type: acute cystitis Qualified Code(s): N30.00 - Acute cystitis without hematuria
[2019-11-19] MEDS ORDERED: FUROSEMIDE 10 MG in SYRINGE 0 ML IV ONE (15:15)
[2019-11-19] MEDS: MIRTAZAPINE TAB 15 MG TAB PO SCH (20:47)
[2019-11-19] MEDS: ATORVASTATIN 40 MG TAB PO SCH (20:47)
[2019-11-20 06:20] LABS: Hematocrit (blood only) 31.5 % (37-47); Hemoglobin 10.1 g/dL (12.0-16.0); Mean Corpuscular Hemoglobin 30.2 pg (25-34); Mean Corpuscular Hgb Conc 32.1 g/dL (32-36); Mean Corpuscular Volume 94.3 fL (80-100); Mean Platelet Volume 9.9 fL (7.4-10.4); Platelet Count 271 K/uL (130-400); RDW Coefficient of Variation 18.7 % (11.5-14.5); RDW Standard Deviation 60.3 fL (36.4-46.3); Red Blood Count 3.34 M/uL (4.2-5.4); White Blood Count 2.54 K/uL (4.8-10.8)
[2019-11-20 06:31] LABS: INR 1.4 (0.9-1.1); Prothrombin Time 14.2 Seconds (9.0-12.0)
[2019-11-20 06:51] LABS: BUN Creatinine Ratio 17.8 (10-20); Calcium 7.3 mg/dl (8.5-10.1); Creatinine Clr Calc Pharmacy 121.7 ml/min; Est GFR (African American) 121.7; Magnesium 1.9 mg/dl (1.8-2.4); Potassium 3.9 mmol/L (3.5-5.1)
[2019-11-20 06:59] LABS: Albumin Globulin Ratio 0.3 (0.9-2); Bilirubin,Total 1.3 mg/dl (0.2-1); Globulin 3.1 gm/dl (2.5-4.0); Phosphorus 2.9 mg/dl (2.5-4.9); Total Protein 4.1 gm/dl (6.4-8.2)
[2019-11-20] MEDS: METOPROLOL TARTRATE 25 MG TAB PO SCH (08:05)
[2019-11-20] MEDS: MIDODRINE HCL 2.5 MG TAB PO SCH ×3 (08:05→17:53)
[2019-11-20] MEDS: MULTIVITAMIN TAB PO SCH (08:06)
[2019-11-20] MEDS: FLUOXETINE HCL 20 MG CAP PO SCH (08:06)
[2019-11-20] MEDS: AMIODARONE 200 MG TAB PO SCH ×2 (08:06→17:53)
[2019-11-20] MEDS: THIAMINE HCL 100 MG TAB PO SCH (08:06)
[2019-11-20] MEDS: ASPIRIN 81 MG ECTAB PO SCH (08:06)
[2019-11-20] MEDS: PANTOprazole 40 MG TAB PO SCH (08:06)
[2019-11-20] MEDS: ONDANSETRON INJ 2 MG/ML 2 ML VIAL IV PRN (08:18)
--- NOTE | 2019-11-20 09:39 | Hospitalist Progress Note ---
Date of Service November 20, 2019 Assessment & Plan (1) Abdominal pain: With worsening lower abdominal pain on the morning of 11/19 with nausea and vomiting. Repeat CT scan of the abdomen/pelvis shows significant increase in right-sided retroperitoneal hemorrhage impaired previous as well as increased right-sided intramuscular hemorrhage in the iliopsoas and iliacus No other cause found for nausea on CT scan-no obstruction or evidence of infection. -Blood pressures are too low to tolerate any opioid pain medications-if absolutely necessary, could trial low-dose of fentanyl IV -Discussed case with brush cutter at [facility] who said no indication for IR unless hemoglobin was dropping -Follow CBC serially (2) Nausea & vomiting: Secondary to abdominal pain worsening retroperitoneal bleed Zofran as needed (3) Hypotension: Ongoing issue. On 11/10, she seemed to have acute change in her BP from 100/70 to 70/60. However, she continued to mentate well, lactate was normal, and no other evidence of end-organ damage. CT a/p showed no RP bleed (at that time) and stat echo showed good EF, no effusion, no right-heart strain. At that time, pulm/cc doctor did NOT feel her BP represented shock and declined ICU transfer. With small fluid boluses, she eventually maintained a BP ~90/60 and did ok. Blood pressure back now consistently in the 70s-80s systolic with slight drop in hemoglobin and increase in retroperitoneal bleed since 5 days ago Severe hypoalbuminemia is contributing as well She is mentating well, lactate is normal again on 11/19 -Gave 1 bolus of IV albumin as per brush cutter - Continue midodrine 5 mg p.o. 3 times daily and wean off as able to -No indication for vasopressors at this time as per brush cutter -Hold low dose beta-billy -Can continue amiodarone for atrial tachycardia (4) Retroperitoneal bleed: Noted on CT a/p on 11/14. - Required 5 units PRBCs, 4 FFP, and 1 cryo all on 11/14 & 11/15. - IVC filter placed on 11/[address] Covarrubias due to DVT/PE and inability to anticoagulate. -Remains off all anticoagulation -> Hgb dropped slightly through the day today at 8.8 from 10.1 yesterday With worsening of RP and pelvic intramuscular bleed as above on CT scan on 11/19 -No indication for IR at this time as per my discussion with [facility] brush cutter unless hemoglobin drops further -Follow CBC (5) Pulmonary embolism: CTA chest on 11/09 shows bilateral pulmonary emboli. Doppler on 11/09 showed left popliteal DVT. - Heparin gtt started on admission; held temporarily due to concern for life- threatening bleed, then restarted the morning of 11/10. - Stopped for good on 11/14 with RP bleed - Now with IVC filter in place (6) Sinus tachycardia: Patient has a known history of atrial tachycardia. Implanted loop recorder put in at [place] during admission for CVA. - HR at [place] was reportedly as high as 150, again possibly due to hypovolemia and PE. - Cardiology consulted -> Appreciate recs No PAT in many days - Started amiodarone 200 mg PO BID on 11/15; metoprolol 12.5 mg PO BID on 11/16. Midodrine 5 mg PO TID started on 11/17 for continued low blood pressure. -Hold metoprolol (7) History of cerebrovascular accident: History of large left MCA stroke in 05/2019, treated at [facility]. Had hemorrhagic conversion of the stroke. Thought to be thrombotic. Hypercoagulable work-up was largely negative with some testing planned to be repeated in 12 weeks after discharge. Unclear if any of this was done. - Continue ASA cautiously in the setting of bleed, statin - Neurology consulted - Appreciate consult (8) UTI (urinary tract infection): Patient has an E. coli UTI documented on 11/05. She had 3 days of cefdinir prior to admission. (Started on 11/05). - Finished ceftriaxone x 3 days (9) Dysphagia: Due to prior stroke. 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 * Alternate solids and liquids * Alert and upright for meals * Meds in a carrier (applesauce/pudding) * Single bites/small sips (10) GERD (gastroesophageal reflux disease): - Continue pantoprazole (11) Major depressive disorder: Pleasant affect today despite medical issues. - Continue fluoxetine, mirtazapine, and gabapentin (12) Edema: NOT heart failure. Iatrogenic in the context of multiple transfusions for RP bleed. - Gentle Lasix given baseline low blood pressure x10 mg IV was given on 11/18 -Giving IV albumin today Follow urine output-seems low at this point, unclear if accurately recorded (13) DVT prophylaxis: None Disposition-transferred to ICU Admission and Anticipated Discharge Date Admission Date: November 11, 2019 Subjective Pt developed lower abd pain and nausea with dry heaving this AM. She felt a little lightheaded.Because of her expressive aphasia, communication was difficult but it seemed as if the abd pain was new. She denied chest pain or SOB. BPs still low but was mentating. Repeat STAT CBC showed hgb was stable, but repeat CT abd/pel showed significant increase in RP bleed and intramuscular bleed in pelvis. I discussed the case with the [place] [employer] and she was transferred down to the ICU for hypotension, worsening bleed. I also called to [facility] and discussed the case with the employee relations director [place] [employer] who suggested no transfer unless hgb drops as IR would not be indicated. Hypotension most likely from hypoalbuminemia. Review of Systems Review of Systems: All systems reviewed & are unremarkable except as noted in HPI & below Physical Exam Constitutional: cooperative and + edematous; no acute distress, + not healthy appearing and not lethargic Eyes: + eyelid abnormality (right periorbital ecchymosis) and + anicteric sclerae ENMT: external ear and nose normal, oropharynx normal Neck: trachea midline, no thyromegaly Respiratory: normal respiratory effort, lungs clear to auscultation Cardiovascular: Rate/Rhythm: regular rate and regular rhythm Heart Sounds: no murmur Extremities: + edema (3+ pitting edema in all extremities) Chest (Breasts): Chest: normal inspection of chest Gastrointestinal (Abdomen): Inspection/Auscultation: normal bowel sounds; abdomen not distended Percussion/Palpation: + abdomen tender (Across lower abdomen) and abdomen soft; no guarding and abdomen not rigid Musculoskeletal: Extremities: no cyanosis and no clubbing Skin: no rashes, warm and dry Neurologic: + focal motor deficit (Right-sided hemiparesis) and awake; not confused Speech / Cognition: + expressive aphasia; normal cognition Psychiatric: Orientation: alert, oriented to person, oriented to place and cooperative Affect: euthymic affect Lymphatic: no lymphedema Results & Data Results & Data ([facility]) Vital Signs (Past 12 Hours) Vital Signs Temp Pulse Resp BP Pulse Ox 11/20/19 07:18 37.4 C 98 H 18 83/43 L 95 11/20/19 03:11 37 C 87 16 83/52 L 97 11/19/19 23:42 36.8 C 80 18 80/44 L 96 Laboratory Results 11/20/19 11/20/19 11/20/19 Range/Units 14:18 14:18 11:38 WBC (4.8-10.8) K/uL RBC (4.2-5.4) M/uL Hgb 8.8 L (12.0-16.0) g/dL Hct 27.0 L (37-47) % MCV (80-100) fL MCH (25-34) pg MCHC (32-36) g/dL RDW Std Deviation (36.4-46.3) fL RDW Coeff of Marcelina (11.5-14.5) % Plt Count (130-400) K/uL MPV (7.4-10.4) fL PT (9.0-12.0) Seconds INR (0.9-1.1) Sodium (136-145) mmol/L Potassium (3.5-5.1) mmol/L Chloride (98-107) mmol/L Carbon Dioxide (21-32) mmol/L Anion Gap (3-11) BUN (7-18) mg/dl Creatinine (0.6-1.2) mg/dl Est Cr Clr Drug Dosing ml/min Est GFR ( Amer) Est GFR (Non-Af Amer) BUN/Creatinine Ratio (10-20) Glucose (70-99) mg/dl Lactate 1.4 (0.4-2.0) mmol/L Calcium (8.5-10.1) mg/dl Phosphorus (2.5-4.9) mg/dl Magnesium (1.8-2.4) mg/dl Total Bilirubin (0.2-1) mg/dl AST (15-37) U/L ALT (12-78) U/L Alkaline Phosphatase (45-117) U/L Total Protein (6.4-8.2) gm/dl Albumin (3.4-5.0) gm/dl Globulin (2.5-4.0) gm/dl Albumin/Globulin Ratio (0.9-2) Random Cortisol 37.39 mcg/dl Cortisol AM Sample (4.3-22.4) mcg/dl 11/20/19 11/20/19 11/20/19 Range/Units 09:53 09:53 09:29 WBC 3.04 L (4.8-10.8) K/uL RBC 3.18 L (4.2-5.4) M/uL Hgb 9.8 L (12.0-16.0) g/dL Hct 29.7 L (37-47) % MCV 93.4 (80-100) fL MCH 30.8 (25-34) pg MCHC 33.0 (32-36) g/dL RDW Std Deviation 60.6 H (36.4-46.3) fL RDW Coeff of Marcelina 18.7 H (11.5-14.5) % Plt Count 246 (130-400) K/uL MPV 9.9 (7.4-10.4) fL PT (9.0-12.0) Seconds INR (0.9-1.1) Sodium (136-145) mmol/L Potassium (3.5-5.1) mmol/L Chloride (98-107) mmol/L Carbon Dioxide (21-32) mmol/L Anion Gap (3-11) BUN (7-18) mg/dl Creatinine (0.6-1.2) mg/dl Est Cr Clr Drug Dosing ml/min Est GFR ( Amer) Est GFR (Non-Af Amer) BUN/Creatinine Ratio (10-20) Glucose (70-99) mg/dl Lactate 1.6 (0.4-2.0) mmol/L Calcium (8.5-10.1) mg/dl Phosphorus (2.5-4.9) mg/dl Magnesium (1.8-2.4) mg/dl Total Bilirubin (0.2-1) mg/dl AST (15-37) U/L ALT (12-78) U/L Alkaline Phosphatase (45-117) U/L Total Protein (6.4-8.2) gm/dl Albumin (3.4-5.0) gm/dl Globulin (2.5-4.0) gm/dl Albumin/Globulin Ratio (0.9-2) Random Cortisol mcg/dl Cortisol AM Sample 38.55 H (4.3-22.4) mcg/dl 11/20/19 11/20/19 11/20/19 Range/Units 05:56 05:56 05:56 WBC 2.54 L (4.8-10.8) K/uL RBC 3.34 L (4.2-5.4) M/uL Hgb 10.1 L (12.0-16.0) g/dL Hct 31.5 L (37-47) % MCV 94.3 (80-100) fL MCH 30.2 (25-34) pg MCHC 32.1 (32-36) g/dL RDW Std Deviation 60.3 H (36.4-46.3) fL RDW Coeff of Marcelina 18.7 H (11.5-14.5) % Plt Count 271 (130-400) K/uL MPV 9.9 (7.4-10.4) fL PT 14.2 H (9.0-12.0) Seconds INR 1.4 H (0.9-1.1) Sodium 138 (136-145) mmol/L Potassium 3.9 (3.5-5.1) mmol/L Chloride 109 H (98-107) mmol/L Carbon Dioxide 22 (21-32) mmol/L Anion Gap 7.0 (3-11) BUN 11 (7-18) mg/dl Creatinine 0.61 (0.6-1.2) mg/dl Est Cr Clr Drug Dosing 121.7 ml/min Est GFR ( Amer) 121.7 Est GFR (Non-Af Amer) 105.0 BUN/Creatinine Ratio 17.8 (10-20) Glucose 59 L (70-99) mg/dl Lactate (0.4-2.0) mmol/L Calcium 7.3 L (8.5-10.1) mg/dl Phosphorus 2.9 D (2.5-4.9) mg/dl Magnesium 1.9 (1.8-2.4) mg/dl Total Bilirubin 1.3 H (0.2-1) mg/dl AST 23 (15-37) U/L ALT 17 (12-78) U/L Alkaline Phosphatase 115 (45-117) U/L Total Protein 4.1 L (6.4-8.2) gm/dl Albumin 1.0 L (3.4-5.0) gm/dl Globulin 3.1 (2.5-4.0) gm/dl Albumin/Globulin Ratio 0.3 L (0.9-2) Random Cortisol mcg/dl Cortisol AM Sample (4.3-22.4) mcg/dl Diagnostic Findings CT abdomen/pelvis noncontrast: IMPRESSION: 1. There has been a significant increase in right-sided retroperitoneal hemorrhage as compared to the 11/15/2019 examination. Right-sided intramuscular hemorrhage (iliopsoas and iliacus) has also modestly increased. 2. A small volume of abdominopelvic ascites, moderate pleural effusions, body wall edema are similar to previous and suggest fluid overload. 3. An IVC filter is new from previous. 4. Severe hepatic steatosis. 5. Colonic wall thickening appears improved from previous. PG Care Time/CCT Total # of Minutes Spent Total Time Spent with Patient: Total time spent is greater than 50% in coordination of care (as documented) at patient's floor/unit and/or counseling patient: Coding Level of Care Code 73396 Subseq Hosp Care Lvl 3 Diagnoses Abdominal pain R10.9 Nausea & vomiting R11.2 Hypotension I95.9 Retroperitoneal bleed R58 Pulmonary embolism I26.99 Sinus tachycardia R00.0 History of cerebrovascular accident Z86.73 UTI (urinary tract infection) N30.00 Hematuria presence: without hematuria Urinary tract infection type: acute cystitis Dysphagia R13.10 GERD (gastroesophageal reflux disease) K21.9 Major depressive disorder F32.9 Edema R60.9 DVT prophylaxis Z29.9 (1) UTI (urinary tract infection) Hematuria presence: without hematuria Urinary tract infection type: acute cystitis Qualified Code(s): N30.00 - Acute cystitis without hematuria
[2019-11-20 09:42] LABS: Hematocrit (blood only) 29.7 % (37-47); Hemoglobin 9.8 g/dL (12.0-16.0); Mean Corpuscular Hemoglobin 30.8 pg (25-34); Mean Corpuscular Volume 93.4 fL (80-100); Mean Platelet Volume 9.9 fL (7.4-10.4); Platelet Count 246 K/uL (130-400); RDW Coefficient of Variation 18.7 % (11.5-14.5); RDW Standard Deviation 60.6 fL (36.4-46.3); Red Blood Count 3.18 M/uL (4.2-5.4); White Blood Count 3.04 K/uL (4.8-10.8)
[2019-11-20] MEDS ORDERED: ALBUMIN 5% 250 ML IV SCH (10:00)
[2019-11-20] MEDS: ALBUMIN 5% 250 ML IV SCH ×2 (10:31→11:40)
--- NOTE | 2019-11-20 11:06 | CT Scan Report ---
CT SCAN OF THE ABDOMEN AND PELVIS WITHOUT IV CONTRAST CLINICAL HISTORY: Follow-up retroperitoneal hematoma. COMPARISON STUDY: Abdominal CT scans dated 11/15/2019 and 11/11/2019. TECHNIQUE: CT scan of the abdomen and pelvis is performed from the lung bases to the proximal femora. Images are reviewed in the axial, sagittal, and coronal planes. IV contrast was not administered for this examination as per the referring clinician. The examination is degraded by streak artifact from the arms which could not elevated above the abdomen. There is also mild motion artifact. A dose lowe ring technique was utilized adhering to the principles of ALARA. CT DOSE: 966.02 mGy.cm FINDINGS: Lung bases: The heart is normal in size noting a small pericardial effusion. There are coronary arter y calcifications. There are moderate pleural effusions with bibasilar consolidation. An electronic de vice is noted in the left chest wall. Liver: The unenhanced liver is normal in size and demonstrates diffusely diminished attenuation consi stent with severe hepatic steatosis. There is no intrahepatic biliary ductal dilatation. Gallbladder: Unremarkable. Spleen: Normal in size and attenuation. Pancreas: The unenhanced pancreas is atrophic and grossly unremarkable. Adrenal glands: Unremarkable. Kidneys: The unenhanced kidneys demonstrate cortical atrophy and are without hydronephrosis. No renal calculi are identified. There is no evidence of contour deforming renal mass lesion. Abdominal vasculature: The abdominal aorta is normal in course and caliber. An IVC filter is new from previous. Bowel: There is no bowel obstruction. Colonic wall thickening appears improved from previous. The octaviano endix is not clearly visualized. Peritoneum/retroperitoneum: No intraperitoneal free air is seen. Intramuscular hemorrhage is again se en within the right iliopsoas and iliacus muscles. This appears to have modestly increased from the examination. There has been a significant increase in the right-sided retroperitoneal hemorrh age, with layering blood products hematocrit level seen anterior to the iliopsoas musculature and wit h blood products layering in the right paracolic gutter. The retroperitoneal hemorrhage measures at l east 13 cm in craniocaudal length. There is a small volume of perihepatic, perisplenic, and pelvic as cites. No intraperitoneal hemorrhage is clearly identified. Lymphadenopathy: None. Pelvic viscera: The bladder is decompressed around a Plata catheter and not well evaluated. Foci of i ntraluminal gas are likely related to instrumentation. The uterus and adnexa are normal as imaged. Skeletal structures: The skeletal structures are osteopenic. Mild lumbosacral spondylosis is observed . No lytic or blastic lesions are seen. Soft tissues: There is body wall edema. IMPRESSION: 1. There has been a significant increase in right-sided retroperitoneal hemorrhage as compared to the 11/15/2019 examination. Right-sided intramuscular hemorrhage (iliopsoas and iliacus) has also modestly increased. 2. A small volume of abdominopelvic ascites, moderate pleural effusions, body wall edema are similar to previous and suggest fluid overload. 3. An IVC filter is new from previous. 4. Severe hepatic steatosis. 5. Colonic wall thickening appears improved from previous. 6. Additional findings as above. ACT 112: Negative or not required by law. Electronically signed by: Brennan Colón M.D. 11/20/2019 11:04 AM
--- NOTE | 2019-11-20 11:45 | Critical Care Progress Note ---
Date of Service November 20, 2019 Assessment & Plan (1) Hypotension: 49-year-old female with past medical history of large left MCA and small right MCA stroke with cerebral edema and subsequent hemorrhagic conversion May 2019, she was initially in the ICU and downgraded yesterday which is 11/19/2019 for persistent tachycardia and undifferentiated shock and retroperitoneal hematoma which was found on CT 11/15/2019. Patient also has history of pulmonary embolism diagnosed 828 with left popliteal DVT Patient had received total 5 units PRBC and 4 units of FFP. IVC filter was plac ed 11/15/[address] Covarrubias Patient was downgraded on 11/19/2019 on midodrine 5 mg 3 times daily. She was started on metoprolol 12.5 mg twice daily as well. 11/20/2019 is when ICU was recalled given the patient was again hypotensive. Patient was awake alert oriented. Not in any acute distress. --Hypotension Undifferentiated Patient got Lasix 10 mg 09/02/2019 Patient has been on metoprolol 12.5 every 12 hours with last dose being 11/20/2019 8 AM The above could be the most likely cause of hypotension given that lactic acid is within normal limit 1.6 and cortisol is 35.5 Patient has no other signs of sepsis. Afebrile, respiratory rate within normal limit. Patient's hemoglobin has been stable. PT/INR 14.2/1.4 11/20/19 CT abdomen pelvis 11/20/2019: Increasing right-sided retroperitoneal hemorrhage as compared to 11/15/2019. Right-sided intramuscular hemorrhage has also modestly increased. --Retroperitoneal bleed Initially noted on CT 11/15/2019 Increase in size compared to CT chest 11/15/2019 --Acute PE with left popliteal DVT Contraindication to anticoagulation given retroperitoneal bleed as well as history of hemorrhagic conversion of MCA Status post IVC filter placement 11/15/2019 Currently off anticoagulation --Anasarca with bilateral pleural effusion Likely secondary to protein calorie malnutrition with albumin of 1 Continue with nutrition Echo showed EF 55-60% with mild LVH and small pericardial effusion, right ventricular size and function were normal. --History of CVA Large MCA 06/02/2019 --Prophylaxis VTE: Contraindicated GI: Pantoprazole Lines: Peripheral Diet: Regular Plan: Given the patient got metoprolol in the morning. I will give the patient 5% albumin 500 mL IV. Will think about giving IV glucagon if there is any signs of endorgan damage. Given the lactate is normal at 1.6 and cortisol is high and patient maintaining her mental status, I do not think there is endorgan damage currently. No need for any vasopressor support for the time being. There is increasing right-sided retroperitoneal hemorrhage along with modestly increase in the intramuscular hematoma. Repeat H&H later today. Patient's INR is 1.4. I am going to give patient vitamin K 2.5 mg IV to reverse the INR. Given there is increase in size of retroperitoneal bleed although there is no drop in hemoglobin. Will get an opinion from IR to see if they might be able to embolize the vessel which might be oozing. Unfortunately we do not have IR here. Patient might need to be transferred for that purpose if any intervention is indicated. I have personally spent 63 minutes of critical care time in the direct ma nagement of this patient. This is a life/limb threatening event. This includes time spent evaluating patient, direct bedside care, chart review, placing orders, interpretation of diagnostic studies, discussion with consultants, patient, and family members, as well as other required patient management activities. This time is exclusive of all separately billable procedures, and teaching time and separate from and in addition to any other critical care service time. Please note the above document was generated using voice recognition software. It may contain grammatical, syntax or spelling errors. (2) Deep vein thrombosis (DVT) of popliteal vein of left lower extremity: (3) Hemiplegia and hemiparesis following cerebral infarction affecting right dominant side: Admission and Anticipated Discharge Date Admission Date: November 11, 2019 Subjective I was called to evaluate the patient on the floor as a systolic blood pressure was in the mid 60s with map being in the low 50s to high 40s. At the time of examination patient was awake alert oriented x3. She was moving her left extremity. She denied any dizziness, no chest pain, no nausea or vomiting. No headache. Blood pressure was 65/45 which improved to 72/46 with leg raise. Patient was verbalizing. There was no new deficit. Patient's heart rate was in the low 80s. Patient has got Lasix on 11/19/2019 as well as metoprolol 12.5 mg in the morning. Review of Systems Review of Systems: All systems reviewed & are unremarkable except as noted in Subjective Physical Exam Physical Exam: Constitutional: No acute distress HEENT: EOMI, PERRLA Respiratory system: Decreased air entry bilaterally, no wheeze, no rhonchi, no crackles CVS: S1-S2 positive, no murmurs or gallops Abdomen: Soft, nontender, nondistended, positive bowel sounds x4 Extremities: +1 pulses bilaterally radialis/dorsalis pedis, no cyanosis, +3 pitting edema bilateral lower extremity as well as right upper extremity. Anasarca Right groin has dressing on which is oozing blood-tinged fluid. Left upper extremity strength 5 out of 5, left lower extremity strength 4 out of 5, right upper extremity and right lower extremity strength 2 out of 5 Neuro: Awake alert oriented x3 Psych: Normal mood and affect G/U: Positive Plata Skin: no rashes, warm and dry Lymphatic: + lymphedema Results & Data Results & Data ([facility]) Vital Signs (Past 12 Hours) Vital Signs Temp Pulse Resp BP Pulse Ox 11/20/19 07:18 37.4 C 98 H 18 83/43 L 95 11/20/19 03:11 37 C 87 16 83/52 L 97 11/19/19 23:42 36.8 C 80 18 80/44 L 96 11/20/19 09:29 11/20/19 05:56 Coding Level of Care Code Critical Care 1st 30-74 mins Diagnoses Hypotension I95.9 Deep vein thrombosis (DVT) of popliteal vein of left lower extremity I82.432 Hemiplegia and hemiparesis following cerebral infarction affecting right dominant side I69.351 Time Spent (min) 63
[2019-11-20] MEDS ORDERED: PHYTONADIONE 2.5 MG in SODIUM CHLORIDE 0.9% 50 ML IV ONE (12:30)
[2019-11-20 14:29] LABS: Hemoglobin 8.8 g/dL (12.0-16.0)
[2019-11-20 19:42] LABS: Hematocrit (blood only) 29.7 % (37-47); Hemoglobin 9.9 g/dL (12.0-16.0); Mean Corpuscular Hemoglobin 30.5 pg (25-34); Mean Corpuscular Hgb Conc 33.3 g/dL (32-36); Mean Corpuscular Volume 91.4 fL (80-100); Mean Platelet Volume 10.4 fL (7.4-10.4); Platelet Count 212 K/uL (130-400); RDW Standard Deviation 60.7 fL (36.4-46.3); Red Blood Count 3.25 M/uL (4.2-5.4); White Blood Count 7.94 K/uL (4.8-10.8)
[2019-11-20 19:43] LABS: Platelet Estimate Normal (Normal)
[2019-11-20] MEDS: ATORVASTATIN 40 MG TAB PO SCH (21:01)
[2019-11-20] MEDS: MIRTAZAPINE TAB 15 MG TAB PO SCH (21:01)
[2019-11-20] MEDS ORDERED: ALBUMIN 5% 250 ML IV ONE (22:30)
--- NOTE | 2019-11-21 00:46 | Procedure Note ---
Procedure Note Date of Service November 21, 2019 Procedure: [facility] Home Indwelling Peripherally Inserted IV Catheter Placement Attending: Dr. Cramer APC: Michele Del Rio PA-C Indication: Need for IV Access, Poor Vascular Access Anesthesia: None Verbal consent was obtained from patient prior to performing the procedure. A time-out was completed verifying correct patient, procedure, site, positioning, and implant(s) or special equipment if applicable. Utilizing bedside ultrasound, vascularity of the RIGHT upper extremity was assessed. V essel size was noted for appropriate catheter selection and skin was marked with gentle pressure. Patients RIGHT upper extremity was prepped and draped in the usual sterile fashion utilizing chlorhexidine. Ultrasound guidance was used to aid needle placement. A 22 g Endurance Catheter was introduced into the RIGHT brachial vein under direct ultrasound guidance. Guide wire was easily deployed without resistance. Catheter was threaded over the guide wire without resistance and the entire apparatus was removed intact. Good venous blood return was noted in the catheter. The IV catheter was easily flushed with sterile saline flush. Sterile clave was attached to the end of the catheter and good blood return was again noted. Tourniquet was released. StatLock device and sterile dressing were applied. The patient tolerated the procedure well. Blood Loss: Minimal Complications: None Procedural Ultrasound Guidance: Procedure Date: 11/21/2019 Indication: Poor Vascular Access Attending: Dr. Cramer APC: Michele Del Rio PA-C Artery/Veins Identified: YES Access confirmed in Vein with ultrasound: YES Complications: NONE Patient tolerated procedure: WELL Coding CPT Codes Tubes, Drains, and Vasc Access - Tubes, Drains, and Vasc Access: [id number] Venipuncture, Age 1/>Req phys skill, (sep proc), Dx/Tx (not rtn) ([id number]) [facility] [place]odes (Charges) Tubes, Drains, and Vasc Access Procedure 3: Tubes, Drains, and Vasc Access: [id number] Venipuncture, Age 1/>Req phys skill, (sep proc), Dx/Tx (not rtn)
[2019-11-21] MEDS ORDERED: ALBUMIN 5% 250 ML IV ONE (01:30)
[2019-11-21 04:44] LABS: Basophils # (auto) 0.01 K/uL (0-0.2); Basophils % (auto) 0.3 %; Eosinophils # (auto) 0.02 K/uL (0-0.5); Eosinophils % (auto) 0.5 %; Hematocrit (blood only) 24.1 % (37-47); Hemoglobin 7.8 g/dL (12.0-16.0); Immature Granulocytes # (auto) 0.02 K/uL (0.00-0.02); Immature Granulocytes % (auto) 0.5 %; Lymphocytes # (auto) 0.25 K/uL (1.2-3.4); Lymphocytes % (auto) 6.3 %; Mean Corpuscular Hemoglobin 30.5 pg (25-34); Mean Corpuscular Hgb Conc 32.4 g/dL (32-36); Mean Corpuscular Volume 94.1 fL (80-100); Mean Platelet Volume 9.6 fL (7.4-10.4); Monocytes # (auto) 0.14 K/uL (0.11-0.59); Monocytes % (auto) 3.5 %; Neutrophils # (auto) 3.56 K/uL (1.4-6.5); Neutrophils % (auto) 88.9 %; Platelet Count 221 K/uL (130-400); RDW Coefficient of Variation 18.9 % (11.5-14.5); RDW Standard Deviation 62.8 fL (36.4-46.3); Red Blood Count 2.56 M/uL (4.2-5.4)
[2019-11-21 04:54] LABS: INR 1.6 (0.9-1.1); Prothrombin Time 16.1 Seconds (9.0-12.0)
[2019-11-21 05:04] LABS: Basophilic Stippling 1+; Dohle Bodies 1+
[2019-11-21 05:07] LABS: BUN Creatinine Ratio 21.7 (10-20); Calcium 6.9 mg/dl (8.5-10.1); Creatinine Clr Calc Pharmacy 137.4 ml/min; Est GFR (African American) 126.6; Est GFR (Non-African American) 109.3; Magnesium 1.8 mg/dl (1.8-2.4); Potassium 3.9 mmol/L (3.5-5.1)
[2019-11-21] MEDS ORDERED: DEXTROSE 50% 50 ML SYRINGE IV ONE (05:11)
[2019-11-21] MEDS ORDERED: PHYTONADIONE 2.5 MG in SODIUM CHLORIDE 0.9% 50 ML IV ONE (07:45)
[2019-11-21] MEDS: PANTOprazole 40 MG TAB PO SCH (07:58)
[2019-11-21] MEDS: FLUOXETINE HCL 20 MG CAP PO SCH (07:58)
[2019-11-21] MEDS: ASPIRIN 81 MG ECTAB PO SCH (07:58)
[2019-11-21] MEDS: MULTIVITAMIN TAB PO SCH (07:58)
[2019-11-21] MEDS: THIAMINE HCL 100 MG TAB PO SCH (07:59)
[2019-11-21] MEDS: AMIODARONE 200 MG TAB PO SCH (07:59)
[2019-11-21] MEDS: MIDODRINE HCL 2.5 MG TAB PO SCH ×3 (07:59→16:04)
[2019-11-21 08:33] LABS: Albumin Level 1.3 gm/dl (3.4-5.0); Bilirubin Direct 0.5 mg/dl (0-0.2); Bilirubin,Total 1.5 mg/dl (0.2-1); Total Protein 3.9 gm/dl (6.4-8.2)
--- NOTE | 2019-11-21 08:58 | Critical Care Progress Note ---
Date of Service November 21, 2019 Assessment & Plan (1) Hypotension: 49-year-old female with past medical history of large left MCA and small right MCA stroke with cerebral edema and subsequent hemorrhagic conversion May 2019, she was initially in the ICU and downgraded yesterday which is 11/19/2019 for persistent tachycardia and undifferentiated shock and retroperitoneal hematoma which was found on CT 11/15/2019. Patient also has history of pulmonary embolism diagnosed 828 with left popliteal DVT Patient had received total 5 units PRBC and 4 units of FFP. IVC filter was plac ed 11/15/[address] Covarrubias Patient was downgraded on 11/19/2019 on midodrine 5 mg 3 times daily. She was started on metoprolol 12.5 mg twice daily as well. 11/20/2019 is when ICU was recalled given the patient was again hypotensive. Patient was awake alert oriented. Not in any acute distress. --Hypotension Undifferentiated Patient got Lasix 10 mg 11/19/2019 Patient has been on metoprolol 12.5 every 12 hours with last dose being 11/20/2019 8 AM The above could be the most likely cause of hypotension given that lactic acid is within normal limit and cortisol is 35.5 Patient has no other signs of sepsis. Afebrile, respiratory rate within normal limit. Patient's hemoglobin has been stable. CT abdomen pelvis 11/20/2019: Increasing right-sided retroperitoneal hemorrhage as compared to 11/15/2019. Right-sided intramuscular hemorrhage has also modestly increased. --Retroperitoneal bleed Initially noted on CT 11/15/2019 Increase in size compared to CT chest 11/15/2019 [facility] was called by Dr. Calles for possible IR guided intervention. They said as there is no drop in hemoglobin there is no indication right now. Patient hemoglobin is gradually trending down. --Hyperbilirubinemia T bili of 1.5, direct bili of 0.5 Reticulocyte has been ordered It could be from amiodarone that the patient is getting Given that the AST, ALT and alk phos are within normal that I do not think this is secondary to hypertension or gallbladder issues. --Acute PE with left popliteal DVT Contraindication to anticoagulation given retroperitoneal bleed as well as history of hemorrhagic conversion of MCA Status post IVC filter placement 11/15/2019 Currently off anticoagulation --Anasarca with bilateral pleural effusion Likely secondary to protein calorie malnutrition with albumin of 1 Continue with nutrition Echo showed EF 55-60% with mild LVH and small pericardial effusion, right ventricular size and function were normal. --History of CVA Large MCA 06/02/2019 --Prophylaxis VTE: Contraindicated because of active bleed GI: Pantoprazole Lines: Peripheral Diet: Regular Plan: In/out: +1025, urine output 100 mL Patient lactate has been within normal limits of 1.4. No endorgan damage. I will increase her midodrine to 7.5 mg every 8 hours. Bilirubin has been trending up gradually. She came in with bilirubin of 0.4 right now is 1.5 with direct bili of 0.5. Patient has been started on amiodarone because of sinus tachycardia as per the notes. I will hold amiodarone and trended. Follow-up reticulocyte count. AST, ALT and alk phos are within normal limit. INR today was 1.6 and will give another 2.5 mg of vitamin K IV Hemoglobin today 7.8 it has gone down gradually from 9.9. I will repeat H&H at 12. If it is still trending down will need to speak with IR. Patient has been having episodes of hypoglycemia because of poor intake. On asking patient today why she not eating she says she is sometimes having difficulty swallowing just the reason. The main problem with the patient is nutrition given her albumin is only 1.3. I will put an NGT in the patient and start her on feeding to increase her nutrition. Nutrition consult. We will also get GI involved again to see if they are able to put a PEG tube in her for nutrition purposes. I have personally spent 37 minutes of critical care time in the direct labert gement of this patient. This is a life/limb threatening event. This includes time spent evaluating patient, direct bedside care, chart review, placing orders, interpretation of diagnostic studies, discussion with consultants, patient, and family members, as well as other required patient management activities. This time is exclusive of all separately billable procedures, and teaching time and separate from and in addition to any other critical care service time. Please note the above document was generated using voice recognition software. It may contain grammatical, syntax or spelling errors. (2) Deep vein thrombosis (DVT) of popliteal vein of left lower extremity: (3) Hemiplegia and hemiparesis following cerebral infarction affecting right dominant side: Admission and Anticipated Discharge Date Admission Date: November 11, 2019 Physical Exam Physical Exam: Constitutional: No acute distress HEENT: EOMI, PERRLA, right periorbital bruise Respiratory system: Decreased air entry bilaterally, no wheeze, no rhonchi, no crackles CVS: S1-S2 positive, no murmurs or gallops Abdomen: Soft, right lower quadrant tenderness, no rebound, positive bowel sounds x4 Extremities: +1 pulses bilaterally radialis/dorsalis pedis, no cyanosis, +3 pitting edema bilateral lower extremity as well as right upper extremity. Anasarca Right groin has dressing on which is oozing blood-tinged fluid. Left upper extremity strength 5 out of 5, left lower extremity strength 4 out of 5, right upper extremity and right lower extremity strength 2 out of 5 Neuro: Awake alert oriented x3 Psych: Normal mood and affect G/U: Positive Plata Skin: no rashes, warm and dry Lymphatic: + lymphedema Results & Data Results & Data ([facility]) Vital Signs (Past 12 Hours) Vital Signs Temp Pulse Resp BP Pulse Ox 11/21/19 06:31 86 17 83/57 L 97 11/21/19 05:31 85 19 89/45 L 97 11/21/19 04:32 88 16 80/46 L 98 11/21/19 03:00 87 15 97/39 L 97 11/21/19 02:18 86 15 85/36 L 98 11/21/19 01:43 87 19 73/45 L 11/21/19 01:29 99 H 31 H 96/72 L 98 11/21/19 01:13 95 H 19 97/49 L 99 11/21/19 00:00 37.1 C 89 17 87/44 L 98 11/20/19 23:04 81 17 82/55 L 100 11/20/19 22:54 86 17 80/48 L 100 11/20/19 22:14 79 14 74/42 L 98 11/20/19 21:51 79 16 77/44 L 98 11/20/19 20:52 36.7 C 82 16 82/59 L 97 11/21/19 04:36 11/21/19 04:36 Coding Level of Care Code Critical Care 1st 30-74 mins Diagnoses Hypotension I95.9 Deep vein thrombosis (DVT) of popliteal vein of left lower extremity I82.432 Hemiplegia and hemiparesis following cerebral infarction affecting right dominant side I69.351 Time Spent (min) 37
[2019-11-21 09:36] LABS: Reticulocyte % 7.6 % (0.5-2.0); Reticulocytes # 0.21 10^6/uL (0.02-0.10)
[2019-11-21] MEDS: CARBOHYDRATES FOR HYPOGLYCEMIA PO PRN (11:35)
--- NOTE | 2019-11-21 12:01 | XRay Report ---
SINGLE VIEW CHEST CLINICAL HISTORY: PICC placement. FINDINGS: An AP, portable, upright chest radiograph is compared to study dated 11/16/2019. The examinat ion is degraded by portable technique and patient rotation. An enteric tube has been placed. The tip projects below the diaphragm over the stomach. A right PICC line has been placed. The tip projects ov er the right atrium. The cardiomediastinal silhouette is partially obscured. The pulmonary vasculatur e is congested. Low lung volumes are noted. There are layering pleural effusions with bibasilar conso lidation. No pneumothorax is seen. The skeletal structures are osteopenic. The bony thorax is grossly intact. IMPRESSION: 1. A right PICC line and an enteric tube have been placed as above. 2. There is pulmonary vascular congestion. 3. Layering pleural effusions with bibasilar consolidation. ACT 112: Negative or not required by law. Electronically signed by: Brennan Colón M.D. 11/21/2019 11:59 AM
[2019-11-21] MEDS: PEPTAMEN INTENSE VHP 1.0 CAL 1,000 ML BAG OG SCH (12:02)
[2019-11-21 12:26] LABS: Hematocrit (blood only) 27.8 % (37-47); Hemoglobin 9.3 g/dL (12.0-16.0)
[2019-11-21] MEDS: ALBUMIN 25% 50 ML IV SCH ×2 (15:26→16:04)
--- NOTE | 2019-11-21 16:04 | Hospitalist Progress Note ---
Date of Service November 21, 2019 Assessment & Plan (1) Abdominal pain: With worsening lower abdominal pain on the morning of 11/19 with nausea and vomiting. Repeat CT scan of the abdomen/pelvis shows significant increase in right-sided retroperitoneal hemorrhage impaired previous as well as increased right-sided intramuscular hemorrhage in the iliopsoas and iliacus No other cause found for nausea on CT scan-no obstruction or evidence of infection. Improved today, no transfer for IR as hgb remains fairly stable -Discussed case with gas roller operator at [facility] who said no indication for IR unless hemoglobin was dropping -Follow CBC serially -ensure moving bowels (2) Nausea & vomiting: Secondary to abdominal pain worsening retroperitoneal bleed although had another episode today and hgb remains stable -unclear if from pain? Constipation? Zofran as needed (3) Hypotension: Ongoing issue. On 11/10, she seemed to have acute change in her BP from 100/70 to 70/60. However, she continued to mentate well, lactate was normal, and no other evidence of end-organ damage. CT a/p showed no RP bleed (at that time) and stat echo showed good EF, no effusion, no right-heart strain. At that time, pulm/cc doctor did NOT feel her BP represented shock and declined ICU transfer. With small fluid boluses, she eventually maintained a BP ~90/60 and did ok. Blood pressure on 11/19 back consistently in the 70s-80s systolic with slight drop in hemoglobin and increase in retroperitoneal bleed since 5 days prior Severe hypoalbuminemia is contributing as well Continues to be mentating well, lactate is again normal, hemoglobin only slight drop from yesterday -Gave 1 bolus of IV albumin as per gas roller operator on 11/19 -Giving IV albumin and Lasix today given anasarca -Increase midodrine to 7.5 mg p.o. 3 times daily and wean off as able to -No indication for vasopressors at this time as per gas roller operator and can transfer out of the ICU -Continue to hold low dose beta-billy (4) Retroperitoneal bleed: Noted on CT a/p on 11/14. - Required 5 units PRBCs, 4 FFP, and 1 cryo all on 11/14 & 11/15. - IVC filter placed on 11/[address] Covarrubias due to DVT/PE and inability to antic oagulate. -Remains off all anticoagulation -> Hgb dropped slightly again today this morning to 7.8, but then repeat later in the day was back up to 9.3-likely lab error With worsening of RP and pelvic intramuscular bleed as above on CT scan on 11/19, abdominal pain improved today as above, hopefully has stabilized -No indication for IR at this time as per my discussion with [facility] gas roller operator unless hemoglobin drops further -Okay to continue aspirin given history of large stroke -Follow CBC (5) Pulmonary embolism: Was originally admitted for sinus tachycardia and found to have DVT and bilateral PEs CTA chest on 11/09 shows bilateral pulmonary emboli. Doppler on 11/09 showed left popliteal DVT. - Heparin gtt started on admission; held temporarily due to concern for life- threatening bleed, then restarted the morning of 11/10. - Stopped for good on 11/14 with RP bleed - Now with IVC filter in place (6) Anasarca: Secondary to hypoalbuminemia from very poor nutrition -IV albumin, Lasix Starting tube feeds (7) Sinus tachycardia: Patient has a known history of paroxysmal atrial tachycardia. Implanted loop recorder put in at [place] during admission for CVA. - HR at [place] [place] was reportedly as high as 150, again possibly due to hypovolemia and PE as well as atrial tachycardia. - Cardiology consulted -> Appreciate recs No PAT in many days except briefly with PICC line placement today - Started amiodarone 200 mg PO BID on 11/15; metoprolol 12.5 mg PO BID on 11/16. Midodrine started on 11/17 for continued low blood pressure. -Now with hypotension, continue to hold metoprolol -Amiodarone on hold now due to elevated bilirubin (8) History of cerebrovascular accident: History of large left MCA stroke in 05/2019, treated at [facility]. Had hemorrhagic conversion of the stroke. Thought to be thrombotic. Hypercoagulable work-up was largely negative with some testing planned to be repeated in 12 weeks after discharge. Unclear if any of this was done. - Continue ASA cautiously in the setting of bleed, continue statin - Neurology consulted - Appreciate consult (9) Hypoglycemia: With hypoglycemia on 11/20, very poor p.o. intake -Starting tube feeds -Order Accu-Cheks every 4 hours, glucagon and D50 protocol as needed (10) Atrial tachycardia: As above, paroxysmal atrial tachycardia Holding amiodarone now Monitor on telemetry (11) Acute blood loss anemia: Hemoglobin dropped due to retroperitoneal bleed as above -Stabilized -Follow CBC (12) Deep vein thrombosis (DVT) of popliteal vein of left lower extremity: Left, secondary to hypoproteinemia, massive anasarca -No anticoagulation as above secondary to severe retroperitoneal bleed Now with IVC filter in place (13) S/P insertion of IVC (inferior vena caval) filter: As above (14) Hemiplegia and hemiparesis following cerebral infarction affecting right dominant side: As above, secondary to left MCA stroke Bedbound, total care Continue aspirin, statin (15) Protein calorie malnutrition: With severe protein calorie malnutrition Albumin 1.0, with anasarca, hypoglycemia, and starvation ketoacidosis Starting tube feeds today through NG tube She is able to swallow as per speech evaluation, but perhaps major depressive disorder is contributing -She does not want a PEG tube ever Reminded her that NG tube is temporary -Continue Remeron and consider increasing to 30 mg (16) Coagulopathy: INR remains elevated, worse today 1.6 Was given IV vitamin K on 11/19 and again today 11/20 We will start tube feeds which should help -Add p.o. vitamin K daily tomorrow if INR remains elevated (17) Hyperbilirubinemia: Bilirubin up to 1.5 today, direct bilirubin mildly elevated at 0.5 Other LFTs negative/normal Reticulocyte count elevated but would be appropriate for acute bleed Could be from amiodarone-gas roller operator has held this for now Follow LFTs in the morning (18) GERD (gastroesophageal reflux disease): - Continue pantoprazole (19) UTI (urinary tract infection): Patient has an E. coli UTI documented on 11/05. She had 3 days of cefdinir prior to admission. (Started on 11/05). - Finished ceftriaxone x 3 days (20) Major depressive disorder: With depressed affect, minimal p.o. intake - Continue fluoxetine, mirtazapine, and gabapentin -Consider increasing mirtazapine as above (21) Dysphagia: Due to prior stroke. - Aspiration precautions were undertaken - [employer]IA PROGRAM DIRECTOR consulted - Appreciate recs; no major concerns. Thinks she may need psychiatric consultation * Alternate solids and liquids * Alert and upright for meals * Meds in a carrier (applesauce/pudding) * Single bites/small sips (22) DVT prophylaxis: None due to existing DVT and extremely delicate skin with anasarca as well as acute bleed Disposition-stable for downgrade from ICU to PCU Continued stay Admission and Anticipated Discharge Date Admission Date: November 11, 2019 Subjective Pt had lost her IV last night and had PICC line placed. Had some atrial tach to 120s and this resolved with pulling back PICC line. BPs remain low but slightly improved. She reports her abd pain is improved. She did vomit again today and has been hypoglycemic. She is really eating minimally. Pail Tester placed an NGT and pt agreeable to starting tube feeds that way, but ONLY temporary. SHe absolutely does not want to discuss having a PEG tube and says she would never want that. Overall nutritional status very poor. Review of Systems Review of Systems: All systems reviewed & are unremarkable except as noted in HPI & below Physical Exam Constitutional: cooperative and + edematous; no acute distress, + not healthy appearing and not lethargic Eyes: + eyelid abnormality (right periorbital ecchymosis) and + anicteric sclerae ENMT: Nose: + external nose abnormality (NGT in place) Neck: trachea midline, no thyromegaly Respiratory: normal respiratory effort, lungs clear to auscultation Cardiovascular: Rate/Rhythm: regular rate and regular rhythm Heart Sounds: no murmur Extremities: + edema (3+ pitting edema in all extremities) Chest (Breasts): Chest: normal inspection of chest Gastrointestinal (Abdomen): Inspection/Auscultation: normal bowel sounds; abdomen not distended Percussion/Palpation: + abdomen tender (Across lower abdomen, minimal, improved) and abdomen soft; no guarding and abdomen not rigid Musculoskeletal: Extremities: no cyanosis and no clubbing Skin: no rashes, warm and dry Neurologic: + focal motor deficit (Right-sided hemiparesis) and awake; not confused Speech / Cognition: + expressive aphasia; normal cognition Psychiatric: Orientation: alert and cooperative Affect: + depressed affect Genitourinary: Plata in place Lymphatic: no lymphedema Results & Data Results & Data ([facility]) Vital Signs (Past 12 Hours) Vital Signs Temp Pulse Pulse Resp BP BP Pulse Ox 11/21/19 12:00 130 H 11/21/19 10:22 86 15 87/43 L 100 11/21/19 10:00 82 17 100 11/21/19 09:31 36.6 C 91 H 20 78/46 L 99 11/21/19 09:00 87 16 99 11/21/19 08:31 83 20 75/49 L 100 11/21/19 08:00 37.2 C 82 90 17 84/45 L 99 11/21/19 07:31 83 16 84/45 L 100 11/21/19 06:31 86 17 83/57 L 97 11/21/19 05:31 85 19 89/45 L 97 11/21/19 04:32 88 16 80/46 L 98 PG Care Time/CCT Total # of Minutes Spent Total Time Spent with Patient: Total time spent is greater than 50% in coordination of care (as documented) at patient's floor/unit and/or counseling patient: Coding Level of Care Code 48643 Subseq Hosp Care Lvl 3 Diagnoses Abdominal pain R10.9 Nausea & vomiting R11.2 Hypotension I95.9 Retroperitoneal bleed R58 Pulmonary embolism I26.99 Anasarca R60.1 Sinus tachycardia R00.0 History of cerebrovascular accident Z86.73 Hypoglycemia E16.2 Atrial tachycardia I47.1 Acute blood loss anemia D62 Deep vein thrombosis (DVT) of popliteal vein of left lower extremity I82.432 S/P insertion of IVC (inferior vena caval) filter Z95.828 Hemiplegia and hemiparesis following cerebral infarction affecting right dominant side I69.351 Protein calorie malnutrition E46 Coagulopathy D68.9 Hyperbilirubinemia E80.6 GERD (gastroesophageal reflux disease) K21.9 UTI (urinary tract infection) N30.00 Hematuria presence: without hematuria Urinary tract infection type: acute cystitis Major depressive disorder F32.9 Dysphagia R13.10 DVT prophylaxis Z29.9 (1) UTI (urinary tract infection) Hematuria presence: without hematuria Urinary tract infection type: acute cystitis Qualified Code(s): N30.00 - Acute cystitis without hematuria
[2019-11-21] MEDS ORDERED: FUROSEMIDE 20 MG in SYRINGE 0 ML IV ONE (17:15)
[2019-11-21] MEDS ORDERED: GLUCAGON FOR INJ 1 MG VIAL SQ PRN (17:21)
[2019-11-21] MEDS ORDERED: GLUCOSE 40% GEL 15 GM TUBE PO PRN (17:21)
[2019-11-21] MEDS ORDERED: GLUCOSE 10 TABS/TUBE PO PRN (17:21)
[2019-11-21] MEDS ORDERED: DEXTROSE 50% 50 ML SYRINGE IV PRN (17:21)
--- NOTE | 2019-11-21 18:17 | Electrocardiogram Report ---
Test Reason : Blood Pressure : / mmHG Vent. Rate : 134 BPM Atrial Rate : 134 BPM P-R Int : 126 ms QRS Dur : 070 ms QT Int : 270 ms P-R-T Axes : 041 033 057 degrees QTc Int : 403 ms Poor data quality, interpretation may be adversely affected Sinus tachycardia Low voltage QRS Nonspecific ST and T wave abnormality Abnormal ECG Confirmed by Uche Pennington ([id number]) on 11/21/2019 6:16:58 PM Referred By: [facility] Confirmed By:Jose Pennington
[2019-11-21] MEDS: MIRTAZAPINE TAB 15 MG TAB PO SCH (20:17)
[2019-11-21] MEDS: ATORVASTATIN 40 MG TAB PO SCH (20:17)
[2019-11-21] MEDS: ACETAMINOPHEN 325 MG TAB PO PRN (23:47)
[2019-11-22] MEDS ORDERED: ALBUMIN 5% 250 ML IV ONE ×2 (02:15→04:30)
[2019-11-22 02:29] LABS: Hematocrit (blood only) 23.8 % (37-47); Hemoglobin 8.1 g/dL (12.0-16.0)
[2019-11-22] MEDS ORDERED: IOVERSOL 100ml IV ONE (03:21)
[2019-11-22 03:53] LABS: Appearance Urine Cloudy (Clear); Bacteria Urine Automated 4+ (Negative); Blood Urine Negative (Negative); Color Urine Orange; Glucose Urine UA Negative (Negative); Ketones Urine Negative (Negative); Leukocyte Esterase Urine 2+ (Negative); Nitrite Urine Positive (Negative); Protein Urine Trace (Negative); RBC Urine Automated >30 /hpf (0-4); Specific Gravity Urine 1.035 (1.000-1.030); Urobilinogen Urine Negative (Negative); WBC Urine Automated >30 /hpf (0-5)
[2019-11-22] MEDS ORDERED: cefTRIAXone SODIUM 2,000 MG in DEXTROSE 5% 50 ML IV SCH (04:00)
[2019-11-22 04:06] LABS: Bilirubin Urine Negative (Negative); Ictotest Urine Negative (Negative)
[2019-11-22] MEDS ORDERED: STAT IV Infusion **Titration per Protocol STA ×2 (04:29→07:48)
--- NOTE | 2019-11-22 04:30 | Critical Care Progress Note ---
Date of Service November 22, 2019 Assessment & Plan (1) Hypotension: 49-year-old female with past medical history of large left MCA and small right MCA stroke with cerebral edema and subsequent hemorrhagic conversion May 2019, she was initially in the ICU and downgraded yesterday which is 11/19/2019 for persistent tachycardia and undifferentiated shock and retroperitoneal hematoma which was found on CT 11/15/2019. Patient also has history of pulmonary embolism diagnosed 11/09 with left popliteal DVT Patient had received total 5 units PRBC and 4 units of FFP. IVC filter was placed 11/15/[address] Covarrubias Patient was downgraded on 11/19/2019 on midodrine 5 mg 3 times daily. She was started on metoprolol 12.5 mg twice daily as well. 11/20/2019 is when ICU was recalled given the patient was again hypotensive. Patient was awake alert oriented. Not in any acute distress. --Hypotension Undifferentiated Patient developed tachycardia overnight as well as worsening hypotensive with systolic blood pressures in the 50s to 60s. She is symptomatic as she has had lightheadedness and complaints of feeling dizzy which is new from her baseline. Fever is new as well. Possibly sepsis from unknown source at this time. Received appropriate doses of albumin for volume expansion. H&H concerning for acute drop. CT of the abdomen pelvis demonstrated no change in retroperitoneal bleeding. Transfuse PRBCs. Lactate elevated likely in the setting of ischemia possibly from hypoperfusion. Currently on Levophed. --Retroperitoneal bleed Initially noted on CT 11/15/2019 Increase in size compared to CT chest 11/15/2019. Repeat CT today demonstrates no significant change at this time. Chen was called by Dr. Calles for possible IR guided intervention. They said as there is no drop in hemoglobin there is no indication right now. --Acute PE with left popliteal DVT Contraindication to anticoagulation given retroperitoneal bleed as well as history of hemorrhagic conversion of MCA Status post IVC filter placement 11/15/2019 Currently off anticoagulation --Anasarca with bilateral pleural effusion Likely secondary to protein calorie malnutrition with albumin of 1 Continue with nutrition Echo showed EF 55-60% with mild LVH and small pericardial effusion, right ventricular size and function were normal. --History of CVA Large MCA 06/02/2019 --Prophylaxis VTE: Contraindicated because of active bleed GI: Pantoprazole Lines: Peripheral Diet: Regular Plan: Patient presents to the ICU with worsening hypotensive with systolic blood pressures in the 50s. This is worsening from her baseline over the last 48 hours and the patient is now complaining of dizziness and lightheadedness which is new for her. Additionally, the patient has developed fevers. Blood cultures were obtained. Orders were placed for broad-spectrum antibiotics to include Zosyn as well as vancomycin which are appropriate in the patient's condition and recent long-term stay in the hospital. Patient has a single-lumen PICC line at 22-gauge catheter in her right hand. Patient consents verbally to emergent LEFT internal jugular CVL placement as well as arterial line placement. Will transfuse PRBCs. Trend lactate. Broad-spectrum antibiotics. Case reviewed with general surgery. They are reviewing films, however it does not suggest worsening RP bleeding. Will continue to cover with antibiotics regardless. Initial discussions with Rena were regarding IR. While this certainly could be a consideration, the RP bleed does not appear to have worsened which would have prompted the need for transfer. Appreciate general surgery's ongoing input. At this point, we will continue to aggressively resuscitate and cover for the likelihood of sepsis. I have personally spent 65 minutes of critical care time in the direct management of this patient. This is a life/limb threatening event. This includes time spent evaluating patient, direct bedside care, chart review, placing orders, interpretation of diagnostic studies, discussion with consultants, patient, and family members, as well as other required patient management activities. This time is exclusive of all separately billable procedures, and teaching time and separate from and in addition to any other critical care service time. (2) Deep vein thrombosis (DVT) of popliteal vein of left lower extremity: (3) Hemiplegia and hemiparesis following cerebral infarction affecting right dominant side: Admission and Anticipated Discharge Date Admission Date: November 11, 2019 Subjective Patient had been transferred to the telemetry floor during previous shift. Throughout the night, patient developed worsening hypotension with sustained blood pressures in the 50s systolically. Previously, the patient had maintained systolic blood pressures in the 60s and 70s without any significant symptoms. Of concern, the patient developed a heart rate into the 140s in addition to a fever in excess of 38 C. Patient was treated with albumin on the floor as well as Tylenol. Despite these measures, the patient maintained with blood pressures in the 50s to 60s consistently and complaints of lightheadedness. I was approached by hospitalist staff as they were concerned with ongoing presentation and new onset of fever. CT of the abdomen pelvis was obtained as the patient did have a drop in her H&H. Antibiotics were ordered as were blood cultures. Patient was transferred to the ICU. Review of Systems Review of Systems: Unobtainable due to cognitive status Physical Exam Physical Exam: VITAL SIGNS - Vital signs and nursing notes were reviewed. GENERAL - 49-year-old female appearing her stated age who is in moderate distress. Aphasic. SKIN - Diffuse body edema with skin weeping. HEAD - NC/AT. EYES - PERRL with EOMI bilaterally. Palpebral conjunctiva pale and moist with no injection noted. EARS - No deformities of external structures noted on gross examination bilaterally. NOSE - Midline and without cyanosis. MOUTH/OROPHARYNX - Without perioral cyanosis. NECK - Neck with FROM. Supple to palpation. No nuchal rigidity. LUNGS - Chest wall symmetric without accessory muscle use, intercostals retractions, or central cyanosis. Breath sounds distant bilaterally. CARDIAC - RRR with S1/S2. No murmur, rubs, or gallops appreciated. ABDOMEN - Abdominal contour flat without pulsations or visible masses. Negative Justin's or Qiu Kasper's Signs. BS normoactive all four quadrants. Moderate tenderness to palpation appreciated in the RLQ. No guarding. No Rebound Tenderness. Negative Vovsing's. Negative Alvarez's. No palpable masses, hepatosplenomegaly, or ascites noted. EXTREMITIES - Diffuse edema to the upper and lower extremities bilaterally. +2/5 radial and dorsalis pedis pulses palpated throughout. RIGHT sided hemiparesis. NEUROLOGIC - RIGHT sided hemiparesis noted. Expressive aphasia. Generalized weakness. PSYCH - A&O to person and place. Able to answer "YES/NO" questions appropriately. Results & Data Results & Data ([facility]) Vital Signs (Past 12 Hours) Vital Signs Temp Pulse Pulse Resp BP BP Pulse Ox 11/22/19 04:09 123 H 63/35 L 11/22/19 03:52 122 H 55/31 L 90 11/22/19 03:18 36.7 C 121 H 77/47 L 92 11/22/19 00:50 38.1 C H 132 H 16 99/65 L 96 11/21/19 23:47 38.7 C H 128 H 22 104/68 96 11/21/19 20:00 104 H 11/21/19 19:46 37.2 C 99 H 20 81/49 L 93 11/21/19 18:22 100 H 20 88/49 L 98 11/21/19 18:00 102 H 19 98 11/21/19 17:52 101 H 18 93/51 L 97 11/21/19 17:22 101 H 17 88/54 L 98 11/21/19 17:00 105 H 17 99 11/21/19 16:52 102 H 17 91/47 L 99 Coding Level of Care Code Critical Care 1st 30-74 mins Diagnoses Hypotension I95.9 Deep vein thrombosis (DVT) of popliteal vein of left lower extremity I82.432 Hemiplegia and hemiparesis following cerebral infarction affecting right dominant side I69.351 Time Spent (min) 65
[2019-11-22] MEDS ORDERED: VANCOMYCIN CONSULT ACTIVE PRN ×2 (04:33→04:37)
[2019-11-22] MEDS ORDERED: PIPERACILL/TAZOBAC CONSULT ACTIVE PRN ×2 (04:33→04:37)
[2019-11-22] MEDS ORDERED: PIPERACILLIN/TAZOBACTAM 4.5 GM in DEXTROSE 5% 100 ML IV STA (04:36)
[2019-11-22] MEDS ORDERED: VANCOMYCIN HCL 2,000 MG in SODIUM CHLORIDE 0.9% 500 ML IV ONE (04:37)
[2019-11-22] MEDS ORDERED: VANCOMYCIN HCL 2,000 MG in SODIUM CHLORIDE 0.9% 500 ML IV STA (04:43)
[2019-11-22 04:44] LABS: Hematocrit (blood only) 21.5 % (37-47); Hematocrit (blood only) 21.6 % (37-47); Hemoglobin 7.1 g/dL (12.0-16.0); Mean Corpuscular Hemoglobin 30.3 pg (25-34); Mean Corpuscular Volume 91.9 fL (80-100); Mean Platelet Volume 9.5 fL (7.4-10.4); Platelet Count 165 K/uL (130-400); RDW Coefficient of Variation 18.6 % (11.5-14.5); RDW Standard Deviation 61.2 fL (36.4-46.3); Red Blood Count 2.34 M/uL (4.2-5.4); Reticulocyte % 5.5 % (0.5-2.0); Reticulocytes # 0.13 10^6/uL (0.02-0.10); White Blood Count 2.26 K/uL (4.8-10.8)
[2019-11-22] MEDS ORDERED: SODIUM CHLORIDE 0.9% 250 ML IV PRN (04:46)
--- NOTE | 2019-11-22 04:46 | Communication Note ---
Date of Service: November 22, 2019 Evaluated patient secondary to decreasing blood pressure, tachycardia to the 130's and symptomatic lightheadedness and abdominal pain. on my exam patient was very lighheaded and lethargic, abdomen very tender and right flank tender. sent for stat CT which shows a stable retroperitoneal hemorrhage and large b/l pleural effusions. Respiratory status okay Infused bolus of albumin pressures continued to drop as low as 55/31 and got H and H showing a drop from 8.1 to 7.1. Transferred patient to ICU.
[2019-11-22] MEDS: NOREPINEPHRINE BIT INJ 8 MG in DEXTROSE 5% 500 ML IV SCH ×2 (04:53→12:36)
[2019-11-22 04:54] LABS: INR 1.6 (0.9-1.1)
[2019-11-22 05:06] LABS: BUN Creatinine Ratio 15.6 (10-20); Calcium 7.1 mg/dl (8.5-10.1); Creatinine Clr Calc Pharmacy 89.4 ml/min; Est GFR (African American) 94.6; Est GFR (Non-African American) 81.6; Magnesium 1.7 mg/dl (1.8-2.4); Potassium 3.2 mmol/L (3.5-5.1)
--- NOTE | 2019-11-22 05:06 | Procedure Note ---
Procedure Note Date of Service November 22, 2019 Procedure: Arterial Line Placement Attending: Dr. Cramer APC: Michele Del Rio PA-C Indication: Monitoring on Pressors Anesthesia: Lidocaine 1% Emergent consent implied in the setting of worsening clinical status and need for close hemodynamic monitoring in the acutely anemic patient with possible underlying sepsis syndrome. A time-out was completed verifying correct patient, procedure, site, positioning, and implant(s) or special equipment if applicable. Allens test was performed to ensure adequate perfusion. Patients LEFT wrist was prepped and draped in the usual sterile fashion. Ultrasound guidance was used to aid needle placement. A 20g Arrow arterial line was introduced into the LEFT Radial artery. Catheter was threaded, and the needle was removed with appropriate blood return. Good waveform was observed. The patient tolerated the procedure well. Confirmation of placement with ultrasound. Blood Loss: Minimal Complications: None Procedural Ultrasound Guidance: Procedure Date: 11/22/2019 Indication: Pressors, ABGs, Frequent labs, Poor Access Attending: Dr. Cramer APC: Michele Del Rio PA-C Artery Identified: YES Line confirmed in Artery with ultrasound: YES Complications: NONE Patient tolerated procedure: WELL Coding CPT Codes Tubes, Drains, and Vasc Access - Tubes, Drains, and Vasc Access: [id number] Place Catheter In Artery ([id number]) [facility] [place] Codes (Charges) Tubes, Drains, and Vasc Access Procedure 4: Tubes, Drains, and Vasc Access: [id number] Place Catheter In Artery
[2019-11-22 05:07] LABS: Albumin Level 1.6 gm/dl (3.4-5.0); BUN Creatinine Ratio 14.7 (10-20); Calcium 7.1 mg/dl (8.5-10.1); Creatinine Clr Calc Pharmacy 89.4 ml/min; Est GFR (African American) 94.6; Est GFR (Non-African American) 81.6; Magnesium 1.6 mg/dl (1.8-2.4); Potassium 3.3 mmol/L (3.5-5.1)
[2019-11-22 05:11] LABS: Dohle Bodies 1+; Immature Granulocytes # (auto) 0.02 K/uL (0.00-0.02); Immature Granulocytes % (auto) 0.9 %; Lymphocytes # (auto) 0.12 K/uL (1.2-3.4); Lymphocytes % (auto) 5.3 %; Monocytes # (auto) 0.13 K/uL (0.11-0.59); Monocytes % (auto) 5.8 %; Neutrophils # (auto) 1.99 K/uL (1.4-6.5)
[2019-11-22 05:22] LABS: Bilirubin,Total 2.4 mg/dl (0.2-1); Phosphorus 1.5 mg/dl (2.5-4.9); Total Protein 3.7 gm/dl (6.4-8.2)
[2019-11-22 05:24] LABS: Phosphorus 1.5 mg/dl (2.5-4.9)
--- NOTE | 2019-11-22 05:44 | Procedure Note ---
Procedure Note Date of Service November 22, 2019 Procedure: Internal Jugular Central Line Placement Attending: Dr. Cramer APC: Michele Del Rio PA-C Indication: Central Drug Administration, Poor Venous Access, Multiple Lab Draws Necessary, etc. Anesthesia: Lidocaine 1% Emergent consent implied in the setting of profound hypotension and poor peripheral access requiring the initiation of vasopressors as well as multiple medications including antibiotics, blood products, etc. A time-out was completed verifying correct patient, procedure, site, positioning, and implants(s) or special equipment if applicable. Patients LEFT Neck was cleansed and draped in the typical sterile fashion using Chloraprep. The Internal Jugular Vein and Carotid Artery were identified using ultrasound. The superficial tissue was anesthetized using 3.0 mL of 1% lidocaine without epinephrine under direct visualization with the ultrasound. After adequate anes thetization was achieved, the Internal Jugular vein was cannulated under direct ultrasound guidance using an introducer needle on a syringe. Good venous blood return was maintained prior to removal of syringe from introducer needle. Using Seldinger Technique, a guide wire was advanced through the introducer needle without resistance. The introducer needle was removed and ultrasound images were obtained of the guide wire within the Internal Jugular Vein and saved to the patients medical record. The dilator was advanced to the vessel without resistance. The dilator was exchanged for the triple lumen catheter which was advanced into the vessel without resistance. The guide wire was removed intact from the catheter without issue. Claves were placed on each catheter tip with confirmation of good blood flow from each lumen. Each port was easily flushed with sterile saline. The catheter was placed at 18 cm and sutured in place. BioPatch was applied to the catheter and a sterile Tegaderm dressing was applied over the catheter with careful attention to sterility. Patient tolerated procedure well. No immediate complications were met. Post procedure x-ray was completed, placement was appropriate and no pneumothorax was noted. Images obtained are saved for permanent record Procedural Ultrasound Guidance: Procedure Date: 11/22/2019 Indication: Pressors, Poor Peripheral Access, Multiple lab draws Attending: Dr. Cramer APC: Michele Del Rio PA-C Artery AND Vein visualized: YES Compressible Vein: YES Guidewire or Short Catheter seen in vein prior to dilation: YES Line confirmed in Vein with ultrasound: YES Images obtained are saved for permanent record. Coding CPT Codes Tubes, Drains, and Vasc Access - Tubes, Drains, and Vasc Access: [id number] Insertion Of Non-tunneled Catheter Age 3 Yrs> ([id number]) [facility] [place] Codes (Charges) Tubes, Drains, and Vasc Access Procedure 5: Tubes, Drains, and Vasc Access: [id number] Insertion Of Non-tunneled Catheter Age 3 Yrs>
[2019-11-22] MEDS ORDERED: MAGNESIUM SULFATE / D5W 1 GM/100 ML BAG IV ONE ×3 (05:47→11:00)
[2019-11-22] MEDS ORDERED: POTASSIUM PHOS 3 MMOL/1 ML INFUSION IV STA ×2 (05:47→09:59)
[2019-11-22] MEDS ORDERED: POTASSIUM PHOSPHATE 24 MMOL in SODIUM CHLORIDE 0.9% 500 ML IV ONE (06:30)
--- NOTE | 2019-11-22 06:52 | Surgery Consultation ---
Date of Consultation November 22, 2019 Assessment & Plan (1) Retroperitoneal hemorrhage: It does not appear the patient has a difficult increase in her retroperitoneal hematoma-I will review her CAT scan with the radiologist when they arrive-the reading shows no significant increase from 11/20/2019 If it did show ongoing bleeding the initial treatment would be interventional radiology-she would be a very poor risk for surgical intervention Her underlying myelopathy and severely low albumin added to her inability to produce clotting factors The PET fact that she has ascites can lead to some abdominal pain I do not believe surgical intervention will improve this situation History of Present Illness Attending Physician: Libra Calles MD History of Present Illness 49-year-old female we are asked to evaluate for retroperitoneal hemorrhage and a drop in her H&H In May she sustained a severe left CVA with right hemiparesis She was admitted in late October with shortness of breath and found to have pulmonary emboli and anticoagulated She developed a drop in her hemoglobin and found to have a right retroperitoneal hemorrhage on CAT scan 11/15/2019 A Lidia filter was placed On 11/20/2019 she underwent repeat CAT scan which showed some enlargement of the retroperitoneal hemorrhage There is been some consideration of IR in [place] however it did not appear her blood count changed drastically She had some recent hypotension with a fluctuation in her H&H since 11/20/2019 and repeat CAT scan today on 11/22/2019 Does not show significant change in the retroperitoneal hemorrhage to my reading She does have very large bilateral pleural effusions and intra-abdominal ascites with anasarca Her albumin on admission was 0.8 and has increased to 1.6 but fluctuated up and down Her pro time is 16 showing underlying coagulopathy Allergies Allergy/AdvReac Type Severity Reaction Status Date / Time Sulfa (Sulfonamide Allergy Intermediate RASH TO Verified 11/10/19 12:36 Antibiotics) FACE Home Medications Home Medications Medication Instructions Recorded Confirmed Type Calmoseptine 1 applic TOPICAL TID PRN 11/02/19 11/10/19 History Fleet Enema 118 ml MT DAILY PRN 11/02/19 11/10/19 History Lactobacillus acidoph-L.bulgar 1 tab PO QDL 11/02/19 11/10/19 History [Floranex] acetaminophen [Tylenol] 325 mg PO QID PRN 11/02/19 11/10/19 History aspirin 81 mg PO QAM 11/02/19 11/10/19 History atorvastatin 40 mg PO PM 11/02/19 11/10/19 History bisacodyl 5 mg MT BID PRN 11/02/19 11/10/19 History bisacodyl 20 mg PO HS 11/02/19 11/10/19 History fluoxetine 20 mg PO QAM 11/02/19 11/10/19 History gabapentin 100 mg PO PM 11/02/19 11/10/19 History loperamide 2 mg PO TID 11/02/19 11/10/19 History magnesium hydroxide [Milk Of 30 ml PO DAILY PRN 11/02/19 11/10/19 History Magnesia Concentrated] mirtazapine 15 mg PO PM 11/02/19 11/10/19 History ondansetron HCl [Zofran] 4 mg PO Q6H PRN 11/02/19 11/10/19 History pantoprazole 20 mg PO QAM 11/02/19 11/10/19 History polyethylene glycol 3350 [Miralax] 17 g PO ONCE 11/02/19 11/10/19 History thiamine HCl (vitamin B1) 100 mg PO QAM 11/02/19 11/10/19 History Saccharomyces boulardii [Florastor] 250 mg PO BID #20 cap 11/06/19 11/10/19 Rx enoxaparin 40 mg SUBCUT DAILY 11/06/19 11/10/19 History metoprolol tartrate 12.5 mg PO BID 11/06/19 11/10/19 History multivitamin 1 tab PO DAILY 11/06/19 11/10/19 History Patient History Medical History (Updated 11/22/19 @ 06:49 by Darío Cast MD, FACS) Anemia Aphasia Cerebral infarct Constipation Crohn's disease Dysphagia GERD (gastroesophageal reflux disease) Hemiplegia and hemiparesis following cerebral infarction affecting right dominant side Hepatic steatosis Iron deficiency anemia Major depressive disorder Non-traumatic intracranial hemorrhage correction resident [place] [facility] Other secondary thrombocytopenia Pulmonary embolism Retention of urine Status post placement of implantable loop recorder Toxic epidermal necrolysis Unspecified severe protein-calorie malnutrition Social History Smoking Status: Former smoker Smoking End Date: years ago; Hx Alcohol Use: No Hx Substance Use: No Preferred Language: Algerian Communication Ability: Effective Automobile Inspector Required: No Beliefs That Will Affect Care: None Current Living Situation: Intermediate Current Living Situation Comment: [facility] resident Other Information That Helps Us Care for You: No Feels Safe at Home: Yes Safety Concerns: Feels Safe At This Time Review of Systems Review of Systems: All systems reviewed & are unremarkable except as noted in HPI & below Physical Exam Physical Exam: Patient is responsive, she appears critically ill She is on Levophed Constitutional: + ill appearing; no acute distress Eyes: + anicteric sclerae Respiratory: + labored breathing (Mild labored breathing) Cardiovascular: Rate/Rhythm: + tachycardic Gastrointestinal (Abdomen): Abdomen is moderately distended she does not have any peritoneal signs Skin: Patient has significant edema and skin is cool no cyanosis Neurologic: awake Results & Data ([facility]) Vital Signs (Past 12 Hours) Vital Signs Temp Pulse Pulse Resp BP BP Pulse Ox 11/22/19 06:38 36.7 C 119 H 16 98/51 L 96 11/22/19 06:15 36.6 C 130 H 18 90/46 L 94 11/22/19 06:00 36.6 C 123 H 22 91/45 L 93 11/22/19 05:43 36.6 C 117 H 26 H 96/40 L 92 11/22/19 05:15 110 H 26 H 92 11/22/19 05:00 109 H 29 H 97 11/22/19 04:45 126 H 29 H 91 11/22/19 04:30 121 H 30 H 96 11/22/19 04:25 120 H 34 H 74/29 L 88 L 11/22/19 04:24 114 H 27 H 66/50 L 11/22/19 04:22 105 H 15 11/22/19 04:09 123 H 63/35 L 11/22/19 04:00 122 H 92/42 L 11/22/19 03:52 122 H 55/31 L 90 11/22/19 03:45 123 H 11/22/19 03:30 128 H 11/22/19 03:18 36.7 C 121 H 77/47 L 92 11/22/19 03:15 126 H 11/22/19 03:00 121 H 11/22/19 02:58 124 H 11/22/19 02:15 135 H 11/22/19 02:00 129 H 11/22/19 01:45 131 H 11/22/19 01:30 131 H 11/22/19 01:15 127 H 11/22/19 01:00 129 H 11/22/19 00:50 38.1 C H 132 H 16 99/65 L 96 11/22/19 00:45 132 H 11/22/19 00:30 134 H 11/22/19 00:15 132 H 11/22/19 00:00 133 H 11/21/19 23:50 133 H 11/21/19 23:47 38.7 C H 128 H 22 104/68 96 11/21/19 23:30 125 H 11/21/19 23:15 124 H 11/21/19 23:00 122 H 11/21/19 22:45 120 H 11/21/19 22:30 120 H 11/21/19 22:15 114 H 11/21/19 22:00 117 H 11/21/19 21:45 113 H 11/21/19 21:30 103 H 11/21/19 21:15 113 H 11/21/19 21:00 110 H 11/21/19 20:45 102 H 11/21/19 20:30 94 H 11/21/19 20:15 101 H 11/21/19 20:00 97 H 11/21/19 19:46 37.2 C 99 H 20 81/49 L 93 11/21/19 19:45 99 H 11/21/19 19:35 100 H 11/21/19 19:22 91 H 19 81/46 L 98 11/21/19 19:15 101 H 17 98 11/21/19 19:00 106 H 19 98 11/21/19 18:52 102 H 19 92/48 L 98 11/21/19 18:45 103 H 17 99 PG Care Time/CCT Total # of Minutes Spent Total Time Spent with Patient: Total time spent is greater than 50% in coordination of care (as documented) at patient's floor/unit and/or counseling patient: Coding Level of Care Code 90839 Inpt Consult Level 4 Diagnoses Retroperitoneal hemorrhage R58
[2019-11-22 06:55] LABS: Toxic Vacuolation 1+
--- NOTE | 2019-11-22 07:32 | CT Scan Report ---
CT SCAN OF THE ABDOMEN AND PELVIS WITH IV CONTRAST CLINICAL HISTORY: Follow-up retroperitoneal hematoma. COMPARISON STUDY: Abdominal CT scans dated 11/20/2019, 11/15/2019, and 11/11/2019. TECHNIQUE: Following the IV administration of 93 cc of Optiray 320, CT scan of the abdomen and pelvis is performed from the lung bases to the proximal femora. Images are reviewed in the axial, sagittal, and coronal planes. IV contrast was administered without complication. The examination is degraded b y streak artifact from the arms which could not elevated above the abdomen. There is also mild motion artifact. A dose lowering technique was utilized adhering to the principles of ALARA. CT DOSE: 1087.78 mGycm FINDINGS: Lung bases: The heart is normal in size noting a small pericardial effusion. There are coronary arter y calcifications. There are moderate to large pleural effusions with bibasilar consolidation. An elec tronic device is noted in the left chest wall. Liver: The contrast-enhanced liver is normal in size and demonstrates diffusely diminished attenuatio n consistent with severe hepatic steatosis. There is no intrahepatic biliary ductal dilatation. The h epatic veins and portal veins are patent. Gallbladder: Unremarkable. Spleen: Normal in size and attenuation. Pancreas: The pancreas is atrophic and grossly unremarkable. Adrenal glands: Unremarkable. Kidneys: The contrast-enhanced kidneys demonstrate cortical atrophy and are without hydronephrosis. T he kidneys enhance symmetrically. Abdominal vasculature: The abdominal aorta is normal in course and caliber. An IVC filter is in place . Question deep venous thrombosis versus artifact within the right common femoral vein on axial image #[id number]. Bowel: An enteric tube is new from previous and terminates in the stomach. There is no bowel obstruct ion. Circumferential rectal wall thickening is noted. The appendix is not clearly visualized. Peritoneum/retroperitoneum: No intraperitoneal free air is seen. Intramuscular hemorrhage is again id entified within the right iliopsoas and iliacus muscles. This has not appreciably changed as compared to 11/20/2019 examination. There has been no significant change in the appearance of a right-sided ret roperitoneal hemorrhage, with layering blood products/hematocrit level seen anterior to the iliopsoas musculature and with blood products layering in the right paracolic gutter. The retroperitoneal hemo rrhage measures at least 13 cm in craniocaudal length. No active extravasation is identified at the t blanca of examination. There is a small volume of perihepatic, perisplenic, and pelvic ascites which is unchanged. No intraperitoneal hemorrhage is clearly identified. Lymphadenopathy: None. Pelvic viscera: The bladder is decompressed around a Plata catheter and not well evaluated. Foci of i ntraluminal gas are likely related to instrumentation. The uterus and adnexa are normal as imaged. Skeletal structures: The skeletal structures are osteopenic. Mild lumbosacral spondylosis is observed . No lytic or blastic lesions are seen. Soft tissues: There is body wall edema. IMPRESSION: 1. There has been no significant change in the appearance of right-sided retroperitoneal hemorrhage a nd intramuscular hemorrhage when compared to 11/20/2019 examination. 2. A small volume of abdominopelvic ascites, moderate to large pleural effusions, body wall edema are also similar to previous and suggest fluid overload. 3. Question artifact versus deep venous thrombosis in the right common femoral vein. 4. Severe hepatic steatosis. 5. Circumferential thickening of the rectal wall is again noted. 6. Additional findings as above. ACT 112: Negative or not required by law. Electronically signed by: Brennan Colón M.D. 11/22/2019 7:31 AM
[2019-11-22] MEDS: MIDODRINE HCL 2.5 MG TAB PO SCH ×3 (07:55→18:27)
[2019-11-22] MEDS: THIAMINE HCL 100 MG TAB PO SCH (07:56)
--- NOTE | 2019-11-22 08:00 | XRay Report ---
SINGLE VIEW CHEST CLINICAL HISTORY: Central venous catheter placement. FINDINGS: An AP, portable, upright chest radiograph is compared to study dated 11/16/2019. The examinat ion is degraded by portable technique and patient rotation. A right PICC line and an enteric tube are unchanged in position. A left internal jugular central venous catheter has been placed. The tip proj ects over the cavoatrial junction. The cardiomediastinal silhouette is partially obscured. There is p ulmonary vascular congestion. Low lung volumes are noted. There are layering pleural effusions with b ibasilar consolidation. No pneumothorax is seen. The skeletal structures are osteopenic. The bony tho rax is grossly intact. IMPRESSION: 1. A left internal jugular central venous catheter has been placed as above. No pneumothorax is seen post procedure. 2. Pulmonary vascular congestion is unchanged to slightly worsened from yesterday. 3. Layering pleural effusions with bibasilar consolidation. ACT 112: Negative or not required by law. Electronically signed by: Brennan Colón M.D. 11/22/2019 7:58 AM
[2019-11-22 08:35] LABS: Fibrinogen 268 mg/dl (184-400)
[2019-11-22] MEDS ORDERED: FUROSEMIDE 20 MG in SYRINGE 0 ML IV ONE ×2 (09:15→18:35)
[2019-11-22] MEDS: PIPERACILLIN/TAZOBACTAM 4.5 GM in DEXTROSE 5% 100 ML IV SCH ×2 (09:40→17:59)
[2019-11-22] MEDS ORDERED: PHYTONADIONE 2.5 MG in SODIUM CHLORIDE 0.9% 50 ML IV ONE (10:30)
[2019-11-22] MEDS ORDERED: POTASSIUM PHOSPHATE 40 MMOL in SODIUM CHLORIDE 0.9% 1000ML 1,000 ML IV ONE (10:30)
--- NOTE | 2019-11-22 10:30 | Communication Note ---
Date of Service: November 22, 2019 49-year-old female with past medical history of large left MCA and small right MCA stroke with cerebral edema and subsequent hemorrhagic conversion May 2019, she was initially in the ICU and downgraded yesterday which is 11/19/2019 for persistent tachycardia and undifferentiated shock and retroperitoneal hematoma which was found on CT 11/15/2019. Patient also has history of pulmonary embolism diagnosed 828 with left popliteal DVT Patient had received total 5 units PRBC and 4 units of FFP. IVC filter was placed 11/15/[address] Covarrubias Patient was downgraded on 11/19/2019 on midodrine 5 mg 3 times daily. She was started on metoprolol 12.5 mg twice daily as well. 11/20/2019 is when ICU was recalled given the patient was again hypotensive. Patient was awake alert oriented. Not in any acute distress. 11/21/2019: During the ICU stay patient was hemodynamically stable and subsequently downgraded later in the evening. 11/22/2019: Early in the morning patient was found to be hypotensive systolic blood pressure in the 55, lethargic and complaining of dizziness. This is the first time the patient has complained of dizziness with low blood pressure. H&H repeat was 7.1 which had gone down from 8.8. Patient got 2 more units of PRBC Repeat CT abdomen pelvis showed 13 cm retroperitoneal bleed which has not hopper ed significantly from 11/20/2019. --New onset fever with shock With elevated procalcitonin and lactic acidosis. Patient has hx of low BP but never had lactic acidosis before Fever could be from retroperitoneal bleed itself. Retroperitoneal bleed has been found to cause fever The CT abdomen pelvis also showed possibility of right lower extremity DVT which can also cause fever The only question is why the procalcitonin elevated. For the time being I will continue with broad-spectrum antibiotics and follow-up septic work-up Patient has significant bilateral pleural effusions at the time of admission most likely because of her underlying albumin. I do not think that they are the cause of sepsis. But I would like to get some volume out to make sure that they are not the cause of it. --Retroperitoneal bleed With a drop in hemoglobin Surgery has been on board did not think she will be a surgical candidate given the significant low albumin If the hemoglobin keeps on dropping the next best step would be to have IR to embolize the vessel which might be using. Patient got 2 more units of PRBC 11/22/2019 Plan: Continue with broad-spectrum antibiotics. Continue with vasopressor support to keep map greater than 60 Patient got 2 units of PRBC already We will try to diurese the patient. Possible thoracentesis today when the patient is more alert. Overall prognosis of the patient is guarded. I have personally spent 27 minutes of critical care time in the direct management of this patient. This is a life/limb threatening event. This includes time spent evaluating patient, direct bedside care, chart review, placing orders, interpretation of diagnostic studies, discussion with consultants, patient, and family members, as well as other required patient management activities. This time is exclusive of all separately billable procedures, and teaching time and separate from and in addition to any other critical care service time. Please note the above document was generated using voice recognition software. It may contain grammatical, syntax or spelling errors. Coding Level of Care Code Critical Care jim devlin'l 30 min Time Spent (min) 27
--- NOTE | 2019-11-22 11:15 | Ultrasound Report ---
RIGHT LOWER EXTREMITY VENOUS DOPPLER CLINICAL HISTORY: Potential femoral thrombosis COMPARISON STUDY: Bilateral lower extremity venous Doppler ultrasound November 10, 2019. CT of the abd omen and pelvis November 22, 2019. TECHNIQUE: Sonography of the deep venous system of the right lower extremity was performed. Compress ion and augmentation were evaluated. FINDINGS: Note is made of a small focus of nonocclusive thrombus within the right common femoral vein as shown on CT of November 22, 2019. No additional sites of deep venous thrombus within the right lo wer extremity are noted. Right lower extremity edema is noted. IMPRESSION: Small focus of nonocclusive deep venous thrombus within the right common femoral vein, as shown on CT of November 22, 2019. ACT 112: Negative or not required by law. Electronically signed by: Grupo Hopper M.D. 11/22/2019 11:14 AM
[2019-11-22] MEDS: PANTOprazole 40 MG in SYRINGE 0 ML IV SCH (11:19)
--- NOTE | 2019-11-22 12:26 | Pharmacy Report ---
Pharmacy Abx Dose Short Note - Date of Service November 22, 2019 - Assessment & Plan Assessment * 49 year old F receiving VANCOMYCIN + ZOSYN for treatment of sepsis/septic shock of unknown origin. Patient developed new fever, tachycardia and procal his risen acutely to 13.18 in the setting of increased pressor requirements * Multiple risk factors for resistant organism: hospitalized > 5 days, [place] resident, receipt of IV abx in last 90 days, etc * MRSA nasal swab negative x 2 however last performed > 1 week ago * UA did show pyuria * Blood and urine cx's are pending * SCr did increase from 0.54 to 0.83 in last 24 hrs which could be significant given this patient's underlying malnutrition. UOP remains poor < 0.5mL/kg/hr. Plan Vancomycin * This patient was given vancomycin earlier this admission and was dosed using AUC method which led to supratherapeutic levels (dose used was 1gm Q 8 hrs). In fact, based upon multiple random levels obtained it appears the half-life for vancomycin exceeds 24hrs in this patient. * Patient did receive a loading dose 2000mg (~24mg/kg) x 1 this AM * Will check random level w/ AM labs tomorrow. * Plan is to redose vancomycin when level 15-20 or anticipated to fall within this range * Goal trough level for septic shock of unknown origin : 15 to 20 mcg/mL Zosyn * eCrCl > 20, BMI < 35, however critically ill. Reasonable to continue 4.5gm ext-infusion Q 8 hrs at this time Pharmacy will continue to follow and will adjust dose/frequency as necessary. Thank you.
[2019-11-22] MEDS: MULTI VIT W/MINERALS LIQUID 15 ML UDP NG SCH (12:35)
[2019-11-22] MEDS: FLUOXETINE HCL 20 MG/5 ML UDP NG SCH (12:35)
[2019-11-22] MEDS ORDERED: VANCOMYCIN HCL 1,500 MG in SODIUM CHLORIDE 0.9% 500 ML IV SCH (14:00)
[2019-11-22] MEDS ORDERED: VANCOMYCIN HCL 1,000 MG in SODIUM CHLORIDE 0.9% 250 ML IV SCH (14:00)
[2019-11-22] MEDS: VASOPRESSIN 20 UNITS in 0.9 % SODIUM CHLORIDE 100 ML IV SCH ×2 (14:49→17:59)
[2019-11-22] MEDS: MULTIVITAMIN TAB PO SCH (14:57)
[2019-11-22] MEDS: FLUOXETINE HCL 20 MG CAP PO SCH (14:58)
[2019-11-22] MEDS: PANTOprazole 40 MG TAB PO SCH (14:58)
--- NOTE | 2019-11-22 16:08 | Hospitalist Progress Note ---
Date of Service November 22, 2019 Assessment & Plan (1) Hypotension: This patient is a 49-year-old female with a history of large left MCA territory and small right MCA territory strokes with right-sided hemiplegia, depression, who presented from a [facility] initially with sinus tachycardia and was found to have left lower extremity DVT and multiple bilateral PEs. She is gone on to have a prolonged hospital stay due to a spontaneous retroperitoneal hemorrhage and ongoing hypotension. Ongoing issue. Now critically ill on vasopressors as of 11/20 On 11/10, she seemed to have acute change in her BP from 100/70 to 70/60. However, she continued to mentate well, lactate was normal, and no other evidence of end-organ damage. CT a/p showed no RP bleed (at that time) and stat echo showed good EF, no effusion, no right-heart strain. At that time, pulm/cc doctor did NOT feel her BP represented shock and declined ICU transfer. With small fluid boluses, she eventually maintained a BP ~90/60 and did ok. Blood pressure on 11/19 back consistently in the 70s-80s systolic with slight drop in hemoglobin and increase in retroperitoneal bleed since 5 days prior Severe hypoalbuminemia is contributing as well as anemia and bleeding On 11/20, spiked fever and suspected sepsis with UTI although fever from RP bleed cannot be ruled out. Blood pressures again dropped to the 50s systolic and she had a central line placed and was started on Levophed Lactate is elevated secondary to hypoperfusion. Arterial line was placed on 11/20. Mentation is now improving on 11/21 and blood pressures are improved back to the 80s systolic Transfused 2 units PRBCs on 11/21 Has received a couple of intermittent boluses of IV albumin -Continue midodrine to 7.5 mg per NG tube 3 times daily and wean off as able to -Continue Levophed and wean off as able to -Unable to give tube feeds at this time to increase albumin as she has refeeding syndrome (2) Fever: As above, spiked fever on the evening of 11/20. Chest x-ray with large bilateral pleural effusions although critical care does not think this is infected. Urinalysis seems positive for UTI, although has had Plata catheter in place for extended period of time and could be contamination Does have diarrhea-check for C. difficile which was negative No wounds or skin breakdown or cellulitis areas Could also be fever from retroperitoneal hemorrhage; could also have seeded infection in the RP bleed -Follow urine culture, blood cultures -Continue empiric Zosyn and vancomycin -Pulmonology is considering performing thoracentesis to rule out parapneumonic effusion -Consider exchanging out Plata catheter Tylenol as needed for fever (3) Abdominal pain: With worsening lower abdominal pain on the morning of 11/19 with nausea and vomiting. Repeat CT scan of the abdomen/pelvis showed significant increase in right-sided retroperitoneal hemorrhage compared to previous as well as increased right-sided intramuscular hemorrhage in the iliopsoas and iliacus No other cause found for nausea on CT scan-no obstruction or evidence of infection. -Discussed case with hot packer at [facility] on 11/19 who said no indication for IR unless hemoglobin was dropping Hemoglobin did drop today, but could be from receiving IV albumin bolus and hemodilution especially given that repeat CT of the abdomen/pelvis on 11/21 shows no increase in size of bleed -Follow CBC serially Abdominal pain is improved now (4) Nausea & vomiting: Possibly secondary to abdominal pain and worsening retroperitoneal bleed- now improved Zofran as needed Keeping n.p.o. Has NG tube in place but tube feeds are on hold (5) Retroperitoneal bleed: Noted on CT a/p on 11/14. - Required 5 units PRBCs, 4 FFP, and 1 cryo all on 11/14 & 11/15. - IVC filter placed on 11/[address] Covarrubias due to DVT/PE and inability to anticoagulate. With worsening of RP and pelvic intramuscular bleed as above on CT scan on 11/[address] scan on 11/21 stable from 11/19 Now with hemoglobin slightly down to 7.1 as above-transfuse another 2 units on 11/21 of PRBCs -Okay to continue aspirin given history of large stroke -Follow CBC (6) Pulmonary embolism: Was originally admitted for sinus tachycardia and found to have DVT and bilateral PEs CTA chest on 11/09 shows bilateral pulmonary emboli. Doppler on 11/09 showed left popliteal DVT. - Heparin gtt started on admission; held temporarily due to concern for life- threatening bleed, then restarted the morning of 11/10. - Stopped for good on 11/14 with RP bleed - Now with IVC filter in place CT abdomen/pelvis on 11/21 shows suspected right common femoral vein DVT. Lower extremity venous Doppler on 11/21 confirms DVT now in the right common femoral vein-this could also be causing fever (7) Anasarca: Secondary to profound hypoalbuminemia from very poor nutrition. Patient's mother reports that she has not been eating much for over a year. Suspect that depression plays a role in this especially in the setting of significant stroke -IV albumin has been given, Lasix was given x1 but then had severe hypotension- we will hold off in any further at this time Tube feeds were started on 11/20 but now on hold due to hypotension, refeeding syndrome, and on vasopressors (8) Sinus tachycardia: Patient has a known history of paroxysmal atrial tachycardia. Implanted loop recorder put in at [place] during admission for CVA. - HR at [place] was reportedly as high as 150, again possibly due to hypovolemia and PE as well as atrial tachycardia. - Cardiology consulted -> Appreciate recs With some tachycardia with profound hypotension, now improved - Started amiodarone 200 mg PO BID on 11/15; metoprolol 12.5 mg PO BID on 11/16. Midodrine started on 11/17 for continued low blood pressure. -Now with hypotension, continue to hold metoprolol -Amiodarone on hold now due to elevated bilirubin (9) History of cerebrovascular accident: History of large left MCA stroke and smaller right MCA distribution stroke in 05/2019, treated at [facility]. Had hemorrhagic conversion of the stroke. Thought to be thrombotic possibly due to reactive thrombocytosis to severe anemia. Hypercoagulable work-up was largely negative with some testing planned to be repeated in 12 weeks after discharge. Unclear if any of this was done. She has a loop recorder which is only showing paroxysmal atrial tachycardia but no atrial fibrillation or flutter -TRE was mildly positive at that time and will now be repeated - Continue ASA cautiously in the setting of bleed, continue statin - Neurology consulted - Appreciate consult (10) Hypoglycemia: With hypoglycemia on 11/20 and some on 11/21, very poor p.o. intake -Tube feeds have been started as above but are now on hold again due to ref eeding syndrome -Continue Accu-Cheks every 4 hours, glucagon and D50 protocol as needed (11) Atrial tachycardia: As above, paroxysmal atrial tachycardia Holding amiodarone now Monitor on telemetry (12) Acute blood loss anemia: Hemoglobin dropped due to retroperitoneal bleed as above As above, transfuse again today for hemoglobin 7.1 -Follow CBC (13) Deep vein thrombosis (DVT) of popliteal vein of left lower extremity: Left, secondary to hypoproteinemia, massive anasarca Also now with new DVT on 11/21 and right common femoral vein -No anticoagulation as above secondary to severe retroperitoneal bleed Now with IVC filter in place (14) S/P insertion of IVC (inferior vena caval) filter: As above (15) Hemiplegia and hemiparesis following cerebral infarction affecting right dominant side: As above, secondary to left MCA stroke Bedbound, total care Continue aspirin, statin (16) Protein calorie malnutrition: With severe protein calorie malnutrition Albumin 1.0 and now up to 1.6 with IV albumin, with anasarca, hypoglycemia, and starvation ketoacidosis Started tube feeds on 11/20 through NG tube, but now on hold for refeeding syndr ome She is able to swallow as per speech evaluation, but perhaps major depressive disorder is contributing -She does not want a PEG tube ever Reminded her that NG tube is temporary -Continue Remeron and consider increasing to 30 mg Replace electrolytes including phosphorus, potassium (17) Coagulopathy: INR remains elevated, again today 1.6. Likely a nutritional deficiency of vitamin K, but also with some possible hepatic congestion contributing to coagulopathy Was given IV vitamin K on 11/19 and again on 11/20 Tube feeds for nutrition are now on hold -Giving another dose of vitamin K 2.5 mg IV today (18) Hyperbilirubinemia: Bilirubin continues to increase up to 2.4 today, direct bilirubin elevated at 1.0 Other LFTs negative/normal Reticulocyte count elevated but would be appropriate for acute bleed Could be from amiodarone-hot packer has held this for now Could also be hypoperfusion of the liver from hypotension Follow LFTs in the morning (19) GERD (gastroesophageal reflux disease): - Continue pantoprazole through the IV (20) UTI (urinary tract infection): Patient had an E. coli UTI documented on 11/05. She had 3 days of cefdinir prior to admission. (Started on 11/05). -She had finished ceftriaxone x 3 days here early in the course Now with repeat UA on 11/21 that seems positive for recurrent infection although she has had Plata catheter in place throughout the admission -Follow urine culture -Now on Zosyn and vancomycin as above (21) Major depressive disorder: With depressed affect, minimal p.o. intake - Continue fluoxetine, mirtazapine, and gabapentin -Consider increasing mirtazapine as above (22) Dysphagia: Due to prior stroke. - Aspiration precautions were undertaken - [employer] consulted - Appreciate recs; no major concerns. Thinks she may need psychiatric consultation * Alternate solids and liquids * Alert and upright for meals * Meds in a carrier (applesauce/pudding) * Single bites/small sips (23) DVT prophylaxis: None due to existing DVTs bilaterally and extremely delicate skin with anasarca as well as acute bleed Disposition-continued stay in the ICU Discussed her condition with the patient's permission with her mother, Rosalind, at phone number [phone]. Rosalind states that she will come to try to visit she has not seen her daughter except for one brief visit through a window at the rehab several months ago. She did not understand that her daughter was total care and had right-sided hemiplegia as she was asking questions such as when can the patient come home and will she be able to drive a car again. I feel that she will better understand the patient's poor prognosis when she sees her in person. Patient reiterates again today that she is a full code Admission and Anticipated Discharge Date Admission Date: November 11, 2019 Subjective Patient became severely hypotensive into the 50s systolic overnight and spiked a fever. She was lightheaded and had a decrease in her mental status. She was again transferred down to the ICU and had a central line placed in the left internal jugular vein as well as an arterial line. She was started on Levophed, Zosyn, vancomycin, and given further IV albumin. She had a repeat CT scan of the abdomen pelvis which showed an unchanged retroperitoneal hemorrhage from previous. Urinalysis was collected which did seem consistent with a UTI although was collected from a Plata catheter which is been in place since admission. When I saw her later in the day, she was mentating better. Said she still had some abdominal pain but was improved. No further nausea or vomiting but her tub e feeds had been held for refeeding syndrome. She denied chest pain or shortness of breath. She also started having frequent loose stools today and a C. difficile test was negative. I discussed the case with the hot packer. Review of Systems Review of Systems: All systems reviewed & are unremarkable except as noted in HPI & below Physical Exam Constitutional: cooperative and + edematous; no acute distress, + not healthy appearing and not lethargic Eyes: + eyelid abnormality (right periorbital ecchymosis) and + anicteric sclerae ENMT: Nose: + external nose abnormality (NGT in place) Neck: trachea midline, no thyromegaly Respiratory: normal respiratory effort; no respiratory distress Auscultation: + diminished lung sounds (At the bases bilaterally); no crackles, no rhonchi and no wheezes Cardiovascular: Rate/Rhythm: regular rhythm and + tachycardic Heart Sounds: no murmur Extremities: + edema (3+ pitting edema in all extremities) Chest (Breasts): Chest: normal inspection of chest Gastrointestinal (Abdomen): normal bowel sounds, soft, nontender, no hepatosplenomegaly Inspection/Auscultation: normal bowel sounds; abdomen not distended Percussion/Palpation: + abdomen tender (Across lower abdomen, minimal, improved) and abdomen soft; no guarding and abdomen not rigid Musculoskeletal: Extremities: no cyanosis and no clubbing Skin: no rashes, warm and dry Neurologic: + focal motor deficit (Right-sided hemiparesis) and awake; not confused Speech / Cognition: + expressive aphasia; normal cognition Psychiatric: Orientation: alert and cooperative Affect: + depressed affect Genitourinary: Plata catheter in place draining clear yellow urine Results & Data Results & Data ([facility]) Vital Signs (Past 12 Hours) Vital Signs Temp Pulse Pulse Resp BP BP Pulse Ox 11/22/19 14:15 105 H 31 H 92 11/22/19 14:01 104 H 28 H 98 11/22/19 14:00 94 H 27 H 84/57 L 97 11/22/19 13:45 101 H 26 H 97 11/22/19 13:30 107 H 29 H 96 11/22/19 13:15 100 H 26 H 97 11/22/19 13:01 95 H 26 H 97 11/22/19 13:00 101 H 27 H 88/55 L 97 11/22/19 12:45 101 H 26 H 97 11/22/19 12:30 110 H 21 96 11/22/19 12:15 107 H 20 96 11/22/19 12:01 135 H 23 96 11/22/19 12:00 131 H 23 81/57 L 96 11/22/19 11:45 137 H 21 96 11/22/19 11:30 135 H 23 96 11/22/19 11:15 134 H 26 H 95 11/22/19 11:01 130 H 27 H 103/60 95 11/22/19 11:00 36.9 C 117 H 27 H 88/56 L 95 11/22/19 10:45 139 H 31 H 96 11/22/19 10:30 36.9 C 135 H 26 H 93/54 L 95 11/22/19 10:15 130 H 29 H 95 11/22/19 10:01 131 H 30 H 93 11/22/19 10:00 37 C 129 H 30 H 102/66 94 11/22/19 09:45 133 H 24 93 11/22/19 09:30 37.1 C 127 H 20 95/59 L 92 11/22/19 09:15 124 H 20 91 11/22/19 09:01 127 H 24 93 11/22/19 09:00 124 H 22 98/66 L 91 11/22/19 08:59 37.1 C 126 H 16 99/60 L 91 11/22/19 08:45 126 H 20 91 11/22/19 08:41 37.1 C 130 H 16 100/59 L 91 11/22/19 08:30 130 H 20 90 11/22/19 08:23 37.1 C 124 H 16 101/60 91 11/22/19 08:15 125 H 21 90 11/22/19 08:01 129 H 23 91 11/22/19 08:00 132 H 26 H 99/63 L 92 11/22/19 07:45 115 H 20 90 11/22/19 07:30 115 H 20 91 11/22/19 07:15 118 H 20 90 11/22/19 07:13 36.7 C 115 H 16 98/50 L 97 11/22/19 07:01 118 H 21 91 11/22/19 07:00 117 H 21 97/54 L 91 11/22/19 06:45 36.7 C 119 H 16 104/51 L 97 11/22/19 06:38 36.7 C 119 H 16 98/51 L 96 11/22/19 06:15 36.6 C 130 H 18 90/46 L 94 11/22/19 06:00 36.6 C 123 H 22 91/45 L 93 11/22/19 05:43 36.6 C 117 H 26 H 96/40 L 92 11/22/19 05:15 110 H 26 H 92 11/22/19 05:00 109 H 29 H 97 11/22/19 04:45 126 H 29 H 91 11/22/19 04:30 121 H 30 H 96 11/22/19 04:25 120 H 34 H 74/29 L 88 L 11/22/19 04:24 114 H 27 H 66/50 L 11/22/19 04:22 105 H 15 11/22/19 04:09 123 H 63/35 L Laboratory Results Laboratory results reviewed Diagnostic Findings Chest x-ray and CT abdomen/pelvis images personally reviewed by me PG Care Time/CCT Total # of Minutes Spent Total Time Spent with Patient: Total time spent is greater than 50% in coordination of care (as documented) at patient's floor/unit and/or counseling patient: Coding Level of Care Code 27827 Subseq Hosp Care Lvl 3 Diagnoses Hypotension I95.9 Fever R50.9 Abdominal pain R10.9 Nausea & vomiting R11.2 Retroperitoneal bleed R58 Pulmonary embolism I26.99 Anasarca R60.1 Sinus tachycardia R00.0 History of cerebrovascular accident Z86.73 Hypoglycemia E16.2 Atrial tachycardia I47.1 Acute blood loss anemia D62 Deep vein thrombosis (DVT) of popliteal vein of left lower extremity I82.432 S/P insertion of IVC (inferior vena caval) filter Z95.828 Hemiplegia and hemiparesis following cerebral infarction affecting right dominant side I69.351 Protein calorie malnutrition E46 Coagulopathy D68.9 Hyperbilirubinemia E80.6 GERD (gastroesophageal reflux disease) K21.9 UTI (urinary tract infection) N30.00 Hematuria presence: without hematuria Urinary tract infection type: acute cystitis Major depressive disorder F32.9 Dysphagia R13.10 DVT prophylaxis Z29.9 (1) UTI (urinary tract infection) Hematuria presence: without hematuria Urinary tract infection type: acute cystitis Qualified Code(s): N30.00 - Acute cystitis without hematuria
[2019-11-22] MEDS: MENTHOL-ZINC OXIDE 360 APPLN/120 GM TUBE EXT PRN (17:58)
[2019-11-22 18:15] LABS: BUN Creatinine Ratio 14.8 (10-20); Calcium 6.8 mg/dl (8.5-10.1); Creatinine Clr Calc Pharmacy 96.1 ml/min; Est GFR (African American) 108.7; Est GFR (Non-African American) 93.8; Magnesium 2.6 mg/dl (1.8-2.4); Phosphorus 5.1 mg/dl (2.5-4.9); Potassium 4.1 mmol/L (3.5-5.1)
[2019-11-22] MEDS ORDERED: LOPERAMIDE HCL 2 MG CAP PO STA (18:33)
[2019-11-22] MEDS ORDERED: LOPERAMIDE HCL 2 MG CAP PO PRN (18:34)
[2019-11-22] MEDS ORDERED: ALBUMIN 25% 50 ML IV ONE (18:45)
[2019-11-22] MEDS ORDERED: FUROSEMIDE 40 MG/4 ML VIAL IV ONE (18:45)
[2019-11-22 19:58] LABS: Hematocrit (blood only) 35.8 % (37-47); Hemoglobin 12.1 g/dL (12.0-16.0)
[2019-11-22] MEDS: MIRTAZAPINE TAB 15 MG TAB NG SCH (20:53)
[2019-11-22] MEDS: ATORVASTATIN 40 MG TAB NG SCH (20:53)
[2019-11-22] MEDS: THIAMINE HCL 100 MG TAB NG SCH (20:54)
[2019-11-23 00:12] LABS: Hematocrit (blood only) 35.9 % (37-47); Hemoglobin 12.3 g/dL (12.0-16.0)
[2019-11-23] MEDS: VASOPRESSIN 20 UNITS in 0.9 % SODIUM CHLORIDE 100 ML IV SCH ×3 (01:30→19:34)
[2019-11-23] MEDS: PIPERACILLIN/TAZOBACTAM 4.5 GM in DEXTROSE 5% 100 ML IV SCH ×3 (01:32→17:14)
[2019-11-23] MEDS: NOREPINEPHRINE BIT INJ 8 MG in DEXTROSE 5% 500 ML IV SCH ×2 (02:51→03:00)
[2019-11-23 05:10] LABS: INR 1.6 (0.9-1.1); Prothrombin Time 16.9 Seconds (9.0-12.0)
[2019-11-23 05:11] LABS: Basophils # (auto) 0.01 K/uL (0-0.2); Basophils % (auto) 0.1 %; Eosinophils # (auto) 0.02 K/uL (0-0.5); Eosinophils % (auto) 0.1 %; Hematocrit (blood only) 36.2 % (37-47); Hemoglobin 12.4 g/dL (12.0-16.0); Immature Granulocytes # (auto) 0.29 K/uL (0.00-0.02); Immature Granulocytes % (auto) 1.9 %; Lymphocytes # (auto) 0.41 K/uL (1.2-3.4); Lymphocytes % (auto) 2.6 %; Mean Corpuscular Hemoglobin 30.5 pg (25-34); Mean Corpuscular Hgb Conc 34.3 g/dL (32-36); Mean Corpuscular Volume 89.2 fL (80-100); Mean Platelet Volume 10.5 fL (7.4-10.4); Monocytes # (auto) 0.68 K/uL (0.11-0.59); Monocytes % (auto) 4.3 %; Neutrophils # (auto) 14.23 K/uL (1.4-6.5); Nucleated RBC # (auto) 0.02 K/uL (0-0); Nucleated RBC % (auto) 0.1 %; Platelet Count 107 K/uL (130-400); RDW Coefficient of Variation 17.7 % (11.5-14.5); RDW Standard Deviation 56.7 fL (36.4-46.3); Red Blood Count 4.06 M/uL (4.2-5.4); White Blood Count 15.64 K/uL (4.8-10.8)
[2019-11-23 06:00] LABS: Albumin Level 1.7 gm/dl (3.4-5.0); BUN Creatinine Ratio 15.5 (10-20); Bilirubin Direct 1.3 mg/dl (0-0.2); Bilirubin,Total 2.7 mg/dl (0.2-1); Calcium 6.8 mg/dl (8.5-10.1); Creatinine Clr Calc Pharmacy 101.6 ml/min; Est GFR (African American) 116.3; Est GFR (Non-African American) 100.3; Magnesium 2.2 mg/dl (1.8-2.4); Phosphorus 4.7 mg/dl (2.5-4.9); Total Protein 4.1 gm/dl (6.4-8.2)
[2019-11-23] MEDS ORDERED: CALCIUM GLUCONATE 10% 10 ML VIAL IV STA (06:11)
[2019-11-23 06:23] LABS: Potassium 3.4 mmol/L (3.5-5.1)
[2019-11-23] MEDS ORDERED: CALCIUM GLUCONATE 10% 1,000 MG in SODIUM CHLORIDE 0.9% 50 ML IV SCH (06:30)
--- NOTE | 2019-11-23 07:41 | Surgery Progress Note ---
Date of Service November 23, 2019 Assessment & Plan (1) Retroperitoneal hemorrhage: Patient does not appear to have ongoing bleeding into her retroperitoneum Her H&H has stabilized She continues with underlying coagulopathy and severe hypoalbuminemia Continues to require pressure support Appears renal function is adequate with good urine output and some diuresis We will continue to follow her Admission and Anticipated Discharge Date Admission Date: November 11, 2019 Subjective Hematocrit is 36 Patient responsive Continues on IV pressure support Her H&H is stable and actually increased from her transfusions Hematocrit is 36 Physical Exam Physical Exam: She has minimal abdominal distention Constitutional: + ill appearing; no acute distress Eyes: + anicteric sclerae Respiratory: no respiratory distress Cardiovascular: Rate/Rhythm: regular rate Skin: no rashes, warm and dry Neurologic: Lethargic Results & Data ([facility]) Vital Signs (Past 12 Hours) Vital Signs Temp Pulse Resp BP Pulse Ox 11/23/19 06:00 78 18 11/23/19 05:00 79 19 96 11/23/19 04:00 36.8 C 80 20 95 11/23/19 03:00 80 20 95 11/23/19 02:00 82 21 96 11/23/19 01:02 83 20 96 11/23/19 01:01 83 20 84/60 L 96 11/23/19 01:00 81 21 96 11/23/19 00:01 82 20 11/23/19 00:00 36.9 C 82 18 92 11/22/19 23:00 81 20 95 11/22/19 22:15 82 24 97 11/22/19 21:45 91 H 30 H 96 11/22/19 21:30 96 H 28 H 97 11/22/19 21:15 99 H 37 H 96 11/22/19 21:00 94 H 33 H 97 11/22/19 20:30 102 H 32 H 95 11/22/19 20:02 36.7 C 99 H 31 H 103/83 98 PG Care Time/CCT Total # of Minutes Spent Total Time Spent with Patient: Total time spent is greater than 50% in coordination of care (as documented) at patient's floor/unit and/or counseling patient: Coding Level of Care Code 47948 Subseq Hosp Care Lvl 3 Diagnoses Retroperitoneal hemorrhage R58
[2019-11-23] MEDS ORDERED: VANCOMYCIN HCL 1,000 MG in SODIUM CHLORIDE 0.9% 250 ML IV ONE (07:45)
[2019-11-23] MEDS: ALBUMIN 25% 50 ML IV SCH ×2 (08:07→21:19)
[2019-11-23] MEDS: MULTI VIT W/MINERALS LIQUID 15 ML UDP NG SCH (08:10)
[2019-11-23] MEDS: FLUOXETINE HCL 20 MG/5 ML UDP NG SCH (08:10)
[2019-11-23] MEDS: MIDODRINE HCL 2.5 MG TAB PO SCH ×3 (08:11→17:07)
[2019-11-23] MEDS: THIAMINE HCL 100 MG TAB NG SCH ×2 (08:12→21:19)
[2019-11-23] MEDS: FUROSEMIDE 40 MG in SYRINGE 0 ML IV SCH ×2 (08:54→22:31)
--- NOTE | 2019-11-23 08:57 | Critical Care Progress Note ---
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 Patient also has history of pulmonary embolism diagnosed 828 with left popliteal DVT Patient had received total 5 units PRBC and 4 units of FFP. IVC filter was barry warren 11/15/[address] Covarrubias Patient was downgraded on 11/19/2019 on midodrine 5 mg 3 times daily. She was started on metoprolol 12.5 mg twice daily as well. 11/20/2019 is when ICU was recalled given the patient was again hypotensive. Patient was awake alert oriented. Not in any acute distress. 11/21/2019: During the ICU stay patient was hemodynamically stable and subsequently downgraded later in the evening. 11/22/2019: Early in the morning patient was found to be hypotensive systolic blood pressure in the 55, lethargic and complaining of dizziness. This is the first time the patient has complained of dizziness with low blood pressure. H&H repeat was 7.1 which had gone down from 8.8. --New onset fever with shock Urine culture growing gram-negative bacilli With elevated procalcitonin and lactic acidosis. Patient has hx of low BP but never had lactic acidosis before Fever could be from retroperitoneal bleed itself. Retroperitoneal bleed has been found to cause fever Right lower extremity DVT which can also cause fever Continue with antibiotics Procalcitonin > 200 Patient has significant bilateral pleural effusions at the time of admission most likely because of her underlying albumin. I do not think that they are the cause of sepsis. --Retroperitoneal bleed Initially noted on CT 11/15/2019 with increased in size on 11/20/19. Repeat CT 11/22/19 showed stability of the retroperitoneal bled with drop in Hb Surgery has been on board did not think she will be a surgical candidate given the significant low albumin If the hemoglobin keeps on dropping the next best step would be to have IR to embolize the vessel which might be using. Patient got 2 more units of PRBC 11/22/2019 --Refeeding syndrome Patient was started on NGT feeding to increase her nutritional status but developed significant electrolyte abnormality This is most likely from refeeding syndrome. Would like to have potassium greater than 4, phosphorus greater than 3, magnesium greater than 2 for at least 24-48 hours before starting full feedings. Currently continue with D5 to keep blood sugar between 100-140. --Hyperbilirubinemia T bili of 2.7, direct bili of 1.3 It could be from amiodarone that the patient is getting Given that the AST, ALT and alk phos are within normal that I do not think this is secondary to hypertension or gallbladder issues. --Acute PE with left popliteal DVT and non occlusive Right common femoral DVT Contraindication to anticoagulation given retroperitoneal bleed as well as history of hemorrhagic conversion of MCA Status post IVC filter placement 11/15/2019 Currently off anticoagulation --Anasarca with bilateral pleural effusion Likely secondary to protein calorie malnutrition with albumin of 1 Continue with nutrition Echo showed EF 55-60% with mild LVH and small pericardial effusion, right ventricular size and function were normal. --History of CVA Large MCA 06/02/2019 --Prophylaxis VTE: Contraindicated because of active bleed GI: Pantoprazole Lines: Right arm pick, left IJ, left radial arterial, NGT, Plata Diet: Regular Plan: In/out: +3.6 L, urine output 1.5 L Patient's lactate has gone down back to 1.9. Procalcitonin is greater than 200 and urine culture is growing gram-negative bacilli. Patient had urinary catheter since the time of presentation. Most likely the source of infection is UTI. We will change the Plata catheter today. Continue with antibiotics. Will discontinue vancomycin. Hemoglobin is 12.1 today. Unsure of's hemoglobin is 7.1 was a true value given she got only 2 units of PRBC and it went from 7.1-12.1. We will repeat H&H later today. Patient's phosphorus and magnesium are within normal limit. We will try to restart topical feeds today. Will repeat BMP later today along with mag and Annmarie to make sure they are even repleted. Patient needs diuresis I am going to give patient 25% albumin followed by 40 of Lasix. We will try to do thoracentesis on the right side today. Her INR is 1.6 she has been getting vitamin K 2.5 IV since last 3 days with no change. Will give another 2.5 today. Overall prognosis of the patient is guarded. I have personally spent 33 minutes of critical care time in the direct management of this patient. This is a life/limb threatening event. This includes time spent evaluating patient, direct bedside care, chart review, placing orders, interpretation of diagnostic studies, discussion with consultants, patient, and family members, as well as other required patient management activities. This time is exclusive of all separately billable procedures, and teaching time and separate from and in addition to any other critical care service time. Please note the above document was generated using voice recognition software. It may contain grammatical, syntax or spelling errors. (2) Deep vein thrombosis (DVT) of popliteal vein of left lower extremity: (3) Hemiplegia and hemiparesis following cerebral infarction affecting right dominant side: Admission and Anticipated Discharge Date Admission Date: November 11, 2019 Subjective Patient seen and examined at bedside. No acute distress, no adverse events overnight. Patient got 2 units of PRBC yesterday hemoglobin today is 12.1. Patient is on 0.16 of levo fed and 0.04 units of vasopressin at the time of examination with map of 71 I advised the nurse to titrate down vasopressors to goal map between 60-65 Afebrile since coming to the ICU Review of Systems Review of Systems: All systems reviewed & are unremarkable except as noted in Subjective Physical Exam Physical Exam: Constitutional: No acute distress HEENT: EOMI, PERRLA, right periorbital bruise Respiratory system: Decreased air entry bilaterally, no wheeze, no rhonchi, minimal crackles bilateral lower lobes CVS: S1-S2 positive, no murmurs or gallops Abdomen: Soft, right lower quadrant tenderness, no rebound, positive bowel sounds x4 Extremities: +1 pulses bilaterally radialis/dorsalis pedis, no cyanosis, +3 pitting edema bilateral lower extremity as well as right upper extremity. Anasarca Left upper extremity strength 5 out of 5, left lower extremity strength 4 out of 5, right upper extremity and right lower extremity strength 2 out of 5 Neuro: Awake alert oriented x3 Psych: Normal mood and affect G/U: Positive Plata Skin: no rashes, warm and dry Lymphatic: + lymphedema Results & Data Results & Data ([facility]) Vital Signs (Past 12 Hours) Vital Signs Temp Pulse Resp BP Pulse Ox 09/10/20 06:00 78 18 11/23/19 05:00 79 19 96 11/23/19 04:00 36.8 C 80 20 95 11/23/19 03:00 80 20 95 11/23/19 02:00 82 21 96 11/23/19 01:02 83 20 96 11/23/19 01:01 83 20 84/60 L 96 11/23/19 01:00 81 21 96 11/23/19 00:01 82 20 11/23/19 00:00 36.9 C 82 18 92 11/22/19 23:00 81 20 95 11/22/19 22:15 82 24 97 11/22/19 21:45 91 H 30 H 96 11/22/19 21:30 96 H 28 H 97 11/22/19 21:15 99 H 37 H 96 11/22/19 21:00 94 H 33 H 97 11/23/19 04:45 11/23/19 04:45 Microbiology 11/22/19 03:45 Urine,Clean Catch Urine Culture - Preliminary Gram negative bacilli Coding Level of Care Code Critical Care 1st 30-74 mins Diagnoses Hypotension I95.9 Deep vein thrombosis (DVT) of popliteal vein of left lower extremity I82.432 Hemiplegia and hemiparesis following cerebral infarction affecting right domina nt side I69.351 Time Spent (min) 33
[2019-11-23] MEDS ORDERED: THIAMINE HCL 100 MG TAB NG SCH (09:00)
[2019-11-23] MEDS ORDERED: POTASSIUM PHOS 3 MMOL/1 ML INFUSION IV STA (09:37)
[2019-11-23] MEDS: POTASSIUM CHLORIDE / WTR 20 MEQ/100 ML PLCT IV SCH ×2 (10:08→12:38)
[2019-11-23] MEDS ORDERED: PHYTONADIONE 2.5 MG in SODIUM CHLORIDE 0.9% 50 ML IV ONE (10:15)
[2019-11-23 10:22] LABS: Anti Nuclear Antibody Screen NEGATIVE (NEGATIVE); Haptoglobin 98 mg/dL (43-212)
[2019-11-23] MEDS ORDERED: POTASSIUM PHOSPHATE 15 MMOL in SODIUM CHLORIDE 0.9% 250 ML IV ONE (10:30)
[2019-11-23] MEDS ORDERED: HEPARIN SQ 5000 UNIT HEART ALERT CARP ONE (11:34)
[2019-11-23] MEDS: PANTOprazole 40 MG in SYRINGE 0 ML IV SCH (11:37)
[2019-11-23] MEDS: NOREPINEPHRINE BIT INJ 16 MG in DEXTROSE 5% 500 ML IV SCH (11:45)
[2019-11-23] MEDS ORDERED: HEPARIN SOD 5,000 UNIT/0.5 ML VIAL SQ STA (11:45)
[2019-11-23] MEDS: ACETAMINOPHEN 325 MG TAB PO PRN (11:47)
--- NOTE | 2019-11-23 11:56 | Procedure Note ---
Procedure Note Date of Service November 23, 2019 Procedure: Diagnostic therapeutic ultrasound-guided catheter thoracentesis Impress Associate: Dr. Vashti Cramer Indication: Pleural effusion Consent: Signed by patient and verified with timeout prior to procedure Anesthesia: 1% lidocaine without epinephrine local. Procedure: Consent was verified and timeout performed. Appropriate imaging studies were reviewed prior to the procedure. Patient was placed in a seated position and limited thoracic ultrasound was performed of the left right chest. See separate imaging. Appropriate site above the diaphragm for thoracentesis was selected. The skin was prepped and draped in normal sterile fashion. Lidocaine was used for local analgesia. Fluid was aspirated via the finder needle. A small skin natalie was made with the scalpel and the catheter over the needle apparatus was advanced over the rib into the pleural space. Using the syringe one-way valve system, a total of 550 mL's of hemorrhagic fluid was removed. The catheter was removed and observed to be intact. A sterile dressing was applied. Post procedure chest x-ray was ordered. Fluid was sent for labs, culture and cytology. The patient tolerated the procedure without obvious complication Good lung sliding was appreciated postprocedure. I did not take too much fluid out given that it was hemorrhagic and patient has very low albumin and might be taking out oncotic pressure if I take too much fluid out. Unfortunately we are not able to do hematocrit on the fluid. Blood Loss: < 3cc Coding CPT Codes Pulmonary/Thoracic - Pulmonary and Thoracic: 94478 Thoracentesis w imaging ([id number]) [facility] [place] Procedure Codes (Charges) Pulmonary/Thoracic Procedure 1: Pulmonary and Thoracic: 59268 Thoracentesis w imaging
[2019-11-23 11:57] LABS: Hematocrit (blood only) 35.1 % (37-47); Hemoglobin 12.1 g/dL (12.0-16.0)
[2019-11-23 12:11] LABS: Glucose Pleural Fluid 114 mg/dl
--- NOTE | 2019-11-23 12:16 | XRay Report ---
XR chest 1V portable HISTORY: 49 years-old Female S/P Thoracentesis COMPARISON: Chest radiograph 11/22/2019 TECHNIQUE: Portable AP view of the chest FINDINGS: Patient is slightly rotated. Enteric tube is present with distal tip overlying the abdominal right up per quadrant in the expected location of the distal gastric lumen. A right-sided PICC is noted with d istal tip in the region of the right atrium. Left IJ central venous catheter distal tip terminates in the region of the mid SVC. Loop recorder device. No pneumothorax. Left greater than right pleural ef fusions with left midlung and left greater right bibasilar consolidation. Pulmonary vascular congesti on with interstitial coarsening. Ill-defined opacity of the right upper lung. Bones appear grossly in tact. IMPRESSION: 1. Cardiomegaly with persistent pulmonary edema. 2. Left greater than right pleural effusions with left midlung and bibasilar predominant consolidatio n. 3. Lines and tubes as above. 4. No pneumothorax. ACT 112: Negative or not required by law. The above report was generated using voice recognition software. It may contain grammatical, syntax o r spelling errors. Electronically signed by: Rodolfo Douglass M.D. 11/23/2019 12:15 PM
[2019-11-23 12:26] LABS: Albumin Level 1.7 gm/dl (3.4-5.0); Bilirubin,Total 2.7 mg/dl (0.2-1); Total Protein 3.6 gm/dl (6.4-8.2)
[2019-11-23 12:31] LABS: Appearance Pleural Fluid BLOODY; Basophils, Fluid 0 %; Color Pleural Fluid RED; Eosinophils, Fluid 0 %; Lymphocytes, Fluid 9 %; Mono,Macrophage,Mesothelial 21 %; Neutrophils, Fluid 70 %; RBC Pleural Fluid (A) 222000 /uL; Source Pleural Fluid RIGHT LUNG; WBC Pleural Fluid (A) 327 /uL
[2019-11-23 12:39] LABS: Amylase Pleural Fluid 14 U/L; LDH Pleural Fluid 91 U/L; Total Protein Pleural Fluid 0.8 g/dl
[2019-11-23] MEDS: MENTHOL-ZINC OXIDE 360 APPLN/120 GM TUBE EXT PRN ×2 (12:56→17:31)
[2019-11-23] MEDS: LOPERAMIDE LIQUID 120 ML BOTTLE PO PRN ×2 (17:25→21:46)
[2019-11-23] MEDS: PEPTAMEN INTENSE VHP 1.0 CAL 1,000 ML BAG OG SCH (17:33)
--- NOTE | 2019-11-23 18:25 | Hospitalist Progress Note ---
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 She has gone on to have a prolonged hospital stay due to a spontaneous retroperitoneal hemorrhage,ongoing hypotension, and now Plata catheter associated UTI and sepsis with septic shock. Ongoing issue. Now critically ill on vasopressors as of 11/20 On 11/10, she seemed to have acute change in her BP from 100/70 to 70/60. However, she continued to mentate well, lactate was normal, and no other evidence of end-organ damage. CT a/p showed no RP bleed (at that time) and stat echo showed good EF, no effusion, no right-heart strain. At that time, pulm/cc doctor did NOT feel her BP represented shock and declined ICU transfer. With small fluid boluses, she eventually maintained a BP ~90/60 and did ok. Blood pressure on 11/19 back consistently in the 70s-80s systolic with slight drop in hemoglobin and increase in retroperitoneal bleed since 5 days prior Severe hypoalbuminemia is contributing as well as anemia and bleeding On 11/20, spiked fever and now with sepsis with UTI although fever from RP bleed cannot be ruled out. Blood pressures again dropped to the 50s systolic and she had a central line placed and was started on Levophed and vasopressin Lactate is elevated secondary to hypoperfusion. Arterial line was placed on 11/20. Mentation is now improving on 11/21 and blood pressures are improved back to the 80s systolic Transfused 2 units PRBCs on 11/21 Has received a couple of intermittent boluses of IV albumin -Continue midodrine to 7.5 mg per NG tube 3 times daily and wean off as able to -Continue Levophed, vasopressin, and wean off as able to -Treating for sepsis with antibiotics as below (2) Sepsis: As above, spiked fever on the evening of 11/20. Chest x-ray with large bilateral pleural effusions although critical care does not think this is infected. Now status post thoracentesis on 11/22-pending cultures With septic shock as above Urinalysis seems positive for UTI, with Plata catheter in place for extended period of time-exchange Plata catheter today Does have diarrhea-check for C. difficile which was negative No wounds or skin breakdown or cellulitis areas Could also be fever from retroperitoneal hemorrhage; could also have seeded infection in the RP bleed -Follow urine culture-growing gram-negative rods -Follow blood cultures-no growth to date -Continue empiric Zosyn -Can now discontinue vancomycin (3) Pleural effusion: With large bilateral pleural effusions Now status post thoracentesis with 600 mLs removed from the left side on 11/22- bloody pleural fluid, pH 7.43, protein and LDH consistent with transudative process, amylase 14. Gram stain without organisms, culture pending, cytology pending. Follow cultures, AFB on pleural fluid HIV pending, hepatitis C negative Likely a result of low oncotic pressure from hypoalbuminemia plus also could have some, fluid coming from the retroperitoneal space which would account for the high RBCs in the setting of retroperitoneal bleeding (4) Abdominal pain: With worsening lower abdominal pain on the morning of 11/19 with nausea and vomiting. Repeat CT scan of the abdomen/pelvis showed significant increase in right-sided retroperitoneal hemorrhage compared to previous as well as increased right-sided intramuscular hemorrhage in the iliopsoas and iliacus No other cause found for nausea on CT scan-no obstruction or evidence of infection. -Discussed case with bowling ball grader at [facility] on 11/19 who said no indication for IR unless hemoglobin was dropping Hemoglobin did drop to 7.1 on 11/21, but could be from receiving IV albumin bolus and hemodilution especially given that repeat CT of the abdomen/pelvis on 11/21 shows no increase in size of bleed Hemoglobin significantly up today to 12.1 from 7.1 after only 2 units of PRBCs were given. Suspect spurious lab value either for the 7.1 or the 12.1 -Follow CBC serially Abdominal pain is improved now (5) Nausea & vomiting: Possibly secondary to abdominal pain and worsening retroperitoneal bleed- now improved Zofran as needed Can eat as tolerated Has NG tube in place but tube feeds were on hold for refeeding syndrome- replacing electrolytes and will restart feeds at low dose likely tomorrow (6) Retroperitoneal bleed: Noted on CT a/p on 11/14. - Required 5 units PRBCs, 4 FFP, and 1 cryo all on 11/14 & 11/15. - IVC filter placed on 11/[address] Covarrubias due to DVT/PE and inability to anticoagulate. With worsening of RP and pelvic intramuscular bleed as above on CT scan on 11/[address] scan on 11/21 stable from 11/19 Now with hemoglobin slightly down to 7.1 as above-transfused another 2 units on 11/21 of PRBCs -Okay to continue aspirin given history of large stroke -Follow CBC (7) Pulmonary embolism: Was originally admitted for sinus tachycardia and found to have DVT and bilateral PEs CTA chest on 11/09 shows bilateral pulmonary emboli. Doppler on 11/09 showed left popliteal DVT. - Heparin gtt started on admission; held temporarily due to concern for life- threatening bleed, then restarted the morning of 11/10. - Stopped for good on 11/14 with RP bleed - Now with IVC filter in place CT abdomen/pelvis on 11/21 shows suspected right common femoral vein DVT. Lower extremity venous Doppler on 11/21 confirms DVT now in the right common femoral vein-this could also be causing fever (8) Anasarca: Secondary to profound hypoalbuminemia from very poor nutrition. Patient's mother reports that she has not been eating much for over a year. Suspect that depression plays a role in this especially in the setting of significant stroke -IV albumin has been given on multiple occasions, now giving IV albumin and Lasix together and attempt to diurese as per bowling ball grader Tube feeds were started on 11/20 but now on hold due to hypotension, refeeding syndrome, and on vasopressors (9) Sinus tachycardia: Patient has a known history of paroxysmal atrial tachycardia. Implanted loop recorder put in at [place] during admission for CVA. - HR at [facility] was reportedly as high as 150, again possibly due to hypovolemia and PE as well as atrial tachycardia. - Cardiology consulted -> Appreciate recs With some tachycardia with profound hypotension, now improved - Started amiodarone 200 mg PO BID on 11/15; metoprolol 12.5 mg PO BID on 11/16. Midodrine started on 11/17 for continued low blood pressure. -Now with hypotension, continue to hold metoprolol -Amiodarone on hold now due to elevated bilirubin (10) History of cerebrovascular accident: History of large left MCA stroke and smaller right MCA distribution stroke in 05/2019, treated at [facility]. Had hemorrhagic conversion of the stroke. Thought to be thrombotic possibly due to reactive thrombocytosis to severe anemia. Hypercoagulable work-up was largely negative with some testing planned to be repeated in 12 weeks after discharge. Unclear if any of this was done. She has a loop recorder which is only showing paroxysmal atrial tachycardia but no atrial fibrillation or flutter -TRE was mildly positive at that time and is now negative - Continue ASA cautiously in the setting of bleed, continue statin - Neurology consulted - Appreciate consult (11) Hypoglycemia: With hypoglycemia on 11/20 and some on 11/21, very poor p.o. intake -Tube feeds were started as above but are now on hold again due to refeeding syndrome -Continue Accu-Cheks every 4 hours, glucagon and D50 protocol as needed, is now on D5W (12) Atrial tachycardia: As above, paroxysmal atrial tachycardia Holding amiodarone now Monitor on telemetry (13) Acute blood loss anemia: Hemoglobin dropped due to retroperitoneal bleed as above As above, transfused again for hemoglobin 7.1 on 11/21, hemoglobin now up to 12.1 as above, may be spurious -Follow CBC (14) Deep vein thrombosis (DVT) of popliteal vein of left lower extremity: Left, secondary to hypoproteinemia, massive anasarca Also now with new DVT on 11/21 and right common femoral vein -No anticoagulation as above secondary to severe retroperitoneal bleed Now with IVC filter in place (15) S/P insertion of IVC (inferior vena caval) filter: As above (16) Hemiplegia and hemiparesis following cerebral infarction affecting right dominant side: As above, secondary to left MCA stroke Bedbound, total care Continue aspirin, statin (17) Protein calorie malnutrition: With severe protein calorie malnutrition Albumin 1.0 and now up to 1.6 with IV albumin, with anasarca, hypoglycemia, and starvation ketoacidosis Started tube feeds on 11/20 through NG tube, but now on hold for refeeding syndrome She is able to swallow as per speech evaluation, but perhaps major depressive disorder is contributing -She does not want a PEG tube ever Reminded her that NG tube is temporary -Continue Remeron and consider increasing to 30 mg Replace electrolytes including phosphorus, potassium (18) Coagulopathy: INR remains elevated, again today 1.6 despite several days in a row of receiving IV vitamin K. Likely a nutritional deficiency of vitamin K, but also with some possible hepatic congestion contributing to coagulopathy Was given IV vitamin K on 11/19 and again on 11/20, 11/21 Tube feeds for nutrition are now on hold (19) Hyperbilirubinemia: Bilirubin continues to increase up to 2.7 today, direct bilirubin elevated at 1.3 Other LFTs negative/normal Reticulocyte count elevated but would be appropriate for acute bleed Could be from amiodarone-bowling ball grader has held this for now Could also be hypoperfusion of the liver from hypotension Follow LFTs in the morning (20) GERD (gastroesophageal reflux disease): - Continue pantoprazole through the IV (21) UTI (urinary tract infection): Patient had an E. coli UTI documented on 11/05. She had 3 days of cefdinir prior to admission. (Started on 11/05). -She had finished ceftriaxone x 3 days here early in the course Now with repeat UA on 11/21 is positive for recurrent infection-she has had Plata catheter in place throughout the admission-therefore this is a Plata catheter associated UTI -Follow urine culture-growing gram-negative rods -Continue Zosyn (22) Major depressive disorder: With depressed affect, minimal p.o. intake - Continue fluoxetine, mirtazapine, and gabapentin -Consider increasing mirtazapine as above (23) Dysphagia: Due to prior stroke. - Aspiration precautions were undertaken - WAREHOUSE SELECTOR consulted - Appreciate recs; no major concerns. Thinks she may need psychiatric consultation * Alternate solids and liquids * Alert and upright for meals * Meds in a carrier (applesauce/pudding) * Single bites/small sips (24) Thrombocytopenia: Platelets down to 107, fibrin degradation products are elevated, INR is elevated, fibrinogen is normal, may be secondary to sepsis or early DIC Follow CBC (25) DVT prophylaxis: None due to existing DVTs bilaterally and extremely delicate skin with anasarca as well as acute bleed Disposition-continued stay in the ICU, prognosis quite guarded Discussed her condition with the patient's permission with her mother, Rosalind, at phone number [phone] on 11/21. Rosalind states that she will come to try to visit she has not seen her daughter except for one brief visit through a window at the rehab several months ago. She did not understand that her daughter was total care and had right-sided hemiplegia as she was asking questions such as when can the patient come home and will she be able to drive a car again. I feel that she will better understand the patient's poor prognosis when she sees her in person. Patient is a full code Admission and Anticipated Discharge Date Admission Date: November 11, 2019 Physical Exam Constitutional: cooperative and + edematous; no acute distress, + not healthy appearing and not lethargic Eyes: + eyelid abnormality (right periorbital ecchymosis) and + anicteric sclerae ENMT: external ear and nose normal, oropharynx normal Nose: + external nose abnormality (NGT in place) Neck: trachea midline, no thyromegaly Respiratory: normal respiratory effort, lungs clear to auscultation normal respiratory effort; no respiratory distress Auscultation: + diminished lung sounds (At the bases bilaterally); no crackles, no rhonchi and no wheezes Cardiovascular: RRR, no murmur, no edema Rate/Rhythm: regular rhythm and + tachycardic Heart Sounds: no murmur Extremities: + edema (3+ pitting edema in all extremities) Chest (Breasts): Chest: normal inspection of chest Gastrointestinal (Abdomen): normal bowel sounds, soft, nontender, no hepatosplenomegaly Inspection/Auscultation: normal bowel sounds; abdomen not distended Percussion/Palpation: + abdomen tender (Across lower abdomen, minimal, improved) and abdomen soft; no guarding and abdomen not rigid Musculoskeletal: Extremities: no cyanosis and no clubbing Skin: no rashes, warm and dry Neurologic: + focal motor deficit (Right-sided hemiparesis) and awake; not confused Speech / Cognition: + expressive aphasia; normal cognition Psychiatric: A+Ox3, euthymic affect Orientation: alert and cooperative Affect: + depressed affect Lymphatic: no lymphedema Results & Data Results & Data ([facility]) Vital Signs (Past 12 Hours) Vital Signs Temp Pulse Resp Pulse Ox 11/23/19 15:38 103 H 11/23/19 14:00 103 H 21 94 11/23/19 13:45 100 H 23 94 11/23/19 13:30 99 H 24 96 11/23/19 13:15 98 H 24 96 11/23/19 13:00 93 H 26 H 96 11/23/19 12:45 111 H 32 H 94 11/23/19 12:30 91 H 29 H 11/23/19 12:15 99 H 30 H 11/23/19 12:00 37.1 C 109 H 36 H 95 11/23/19 11:45 100 H 33 H 96 11/23/19 11:30 97 H 32 H 11/23/19 11:15 142 H 34 H 11/23/19 11:00 112 H 26 H 94 11/23/19 10:45 126 H 28 H 94 11/23/19 10:30 129 H 31 H 94 11/23/19 10:15 116 H 28 H 94 11/23/19 10:00 117 H 34 H 94 11/23/19 09:45 106 H 26 H 94 11/23/19 09:30 106 H 27 H 94 11/23/19 09:15 108 H 27 H 94 11/23/19 09:00 108 H 24 11/23/19 08:45 108 H 25 H 90 11/23/19 08:30 95 H 27 H 95 11/23/19 08:15 97 H 22 96 11/23/19 08:00 93 H 23 96 11/23/19 07:45 37.2 C 86 20 95 11/23/19 07:30 81 20 93 11/23/19 07:15 82 20 95 11/23/19 07:00 79 19 95 PG Care Time/CCT Total # of Minutes Spent Total Time Spent with Patient: Total time spent is greater than 50% in coordination of care (as documented) at patient's floor/unit and/or counseling patient: Coding Level of Care Code 16294 Subseq Hosp Care Lvl 3 Diagnoses Hypotension I95.9 Sepsis A41.9 Pleural effusion J90 Abdominal pain R10.9 Nausea & vomiting R11.2 Retroperitoneal bleed R58 Pulmonary embolism I26.99 Anasarca R60.1 Sinus tachycardia R00.0 History of cerebrovascular accident Z86.73 Hypoglycemia E16.2 Atrial tachycardia I47.1 Acute blood loss anemia D62 Deep vein thrombosis (DVT) of popliteal vein of left lower extremity I82.432 S/P insertion of IVC (inferior vena caval) filter Z95.828 Hemiplegia and hemiparesis following cerebral infarction affecting right dominant side I69.351 Protein calorie malnutrition E46 Coagulopathy D68.9 Hyperbilirubinemia E80.6 GERD (gastroesophageal reflux disease) K21.9 UTI (urinary tract infection) N30.00 Hematuria presence: without hematuria Urinary tract infection type: acute cystitis Major depressive disorder F32.9 Dysphagia R13.10 Thrombocytopenia D69.6 DVT prophylaxis Z29.9 (1) UTI (urinary tract infection) Hematuria presence: without hematuria Urinary tract infection type: acute cystitis Qualified Code(s): N30.00 - Acute cystitis without hematuria
[2019-11-23] MEDS: MIRTAZAPINE TAB 15 MG TAB NG SCH (21:19)
[2019-11-23] MEDS: ATORVASTATIN 40 MG TAB NG SCH (21:20)
[2019-11-24] MEDS: PIPERACILLIN/TAZOBACTAM 4.5 GM in DEXTROSE 5% 100 ML IV SCH (02:13)
[2019-11-24] MEDS: VASOPRESSIN 20 UNITS in 0.9 % SODIUM CHLORIDE 100 ML IV SCH (04:03)
[2019-11-24 05:35] LABS: Bilirubin Direct 0.8 mg/dl (0-0.2)
[2019-11-24 05:37] LABS: Albumin Level 1.2 gm/dl (3.4-5.0); BUN Creatinine Ratio 21.7 (10-20); Bilirubin,Total 2.5 mg/dl (0.2-1); Calcium 5.1 mg/dl (8.5-10.1); Creatinine Clr Calc Pharmacy 179.9 ml/min; Est GFR (African American) 140.9; Est GFR (Non-African American) 121.6; Magnesium 1.4 mg/dl (1.8-2.4); Phosphorus 3.1 mg/dl (2.5-4.9); Potassium 2.6 mmol/L (3.5-5.1); Total Protein 2.9 gm/dl (6.4-8.2)
[2019-11-24 05:41] LABS: Hematocrit (blood only) 26.6 % (37-47); Hemoglobin 9.2 g/dL (12.0-16.0); Mean Corpuscular Hemoglobin 30.9 pg (25-34); Mean Corpuscular Hgb Conc 34.6 g/dL (32-36); Mean Corpuscular Volume 89.3 fL (80-100); Mean Platelet Volume 12.1 fL (7.4-10.4); Platelet Count 53 K/uL (130-400); RDW Coefficient of Variation 17.6 % (11.5-14.5); RDW Standard Deviation 57.5 fL (36.4-46.3); Red Blood Count 2.98 M/uL (4.2-5.4); White Blood Count 11.38 K/uL (4.8-10.8)
[2019-11-24 05:42] LABS: Eosinophils # (auto) 0.07 K/uL (0-0.5); Eosinophils % (auto) 0.6 %; Immature Granulocytes # (auto) 0.13 K/uL (0.00-0.02); Immature Granulocytes % (auto) 1.1 %; Lymphocytes # (auto) 0.38 K/uL (1.2-3.4); Lymphocytes % (auto) 3.3 %; Monocytes # (auto) 0.43 K/uL (0.11-0.59); Monocytes % (auto) 3.8 %; Neutrophils # (auto) 10.37 K/uL (1.4-6.5); Neutrophils % (auto) 91.2 %; Platelet Estimate Decreased (Normal)
--- NOTE | 2019-11-24 07:00 | Surgery Progress Note ---
Date of Service November 24, 2019 Assessment & Plan (1) Retroperitoneal hemorrhage: Admission and Anticipated Discharge Date Admission Date: November 11, 2019 I believe the patient's H&H fluctuates with her intravascular status Specifically depending on her albumin/IV albumin I doubt there is any acute bleeding into her retroperitoneum No urgent surgical intervention is planned Subjective Patient is lethargic but responsive He continues to be on pressors with hypotension Her heart rate is normal this morning Her hematocrit fluctuates-down some this morning She also has thrombocytopenia with a platelet count of 53 Physical Exam Constitutional: + ill appearing; no acute distress Eyes: + anicteric sclerae Respiratory: no respiratory distress Cardiovascular: Rate/Rhythm: regular rate Gastrointestinal (Abdomen): Inspection/Auscultation: abdomen not distended Results & Data ([facility]) Vital Signs (Past 12 Hours) Vital Signs Temp Pulse Resp Pulse Ox 11/24/19 06:00 87 17 96 11/24/19 05:00 92 H 20 11/24/19 04:00 36.8 C 70 16 94 11/24/19 03:00 72 18 94 11/24/19 02:00 73 18 94 11/24/19 01:00 77 18 93 11/24/19 00:00 36.6 C 82 21 94 11/23/19 23:00 79 20 95 11/23/19 22:00 78 24 96 11/23/19 21:00 81 28 H 96 11/23/19 20:00 94 H 31 H 94 11/23/19 19:54 103 H 11/23/19 19:00 76 19 95 PG Care Time/CCT Total # of Minutes Spent Total Time Spent with Patient: Total time spent is greater than 50% in coordination of care (as documented) at patient's floor/unit and/or counseling patient: Coding Level of Care Code 64713 Subseq Hosp Care Lvl 3 Diagnoses Retroperitoneal hemorrhage R58
--- NOTE | 2019-11-24 07:12 | XRay Report ---
XR chest 1V portable HISTORY: 49 years-old Female resp failure/ effusion acute respiratory failure COMPARISON: Chest radiograph 11/23/2019 TECHNIQUE: Portable AP view of the chest FINDINGS: Right sided PICC, left IJ central venous catheter and enteric tubes appear to be in unchanged positio darryl. Cardiomegaly with persistent bilateral mixed interstitial and alveolar opacities. Slightly prog ressed opacities throughout the right lung. No pneumothorax. Unchanged pleural effusions with bibasil ar consolidation. Sigmoidal thoracolumbar scoliosis. Bones appear grossly intact. Loop recorder [id number] [id number] IMPRESSION: 1. Stable positioning of life-support lines and tubes. 2. Cardiomegaly with persistent bilateral mixed interstitial and alveolar opacities, moderately worse matheus on the right suggestive of pulmonary edema and/or multifocal pneumonia. 3. Unchanged pleural effusions with bibasilar consolidation. ACT 112: Negative or not required by law. The above report was generated using voice recognition software. It may contain grammatical, syntax o r spelling errors. Electronically signed by: Rodolfo Douglass M.D. 11/24/2019 7:11 AM
[2019-11-24] MEDS: MAGNESIUM SULFATE / D5W 1 GM/100 ML BAG IV SCH ×3 (08:08→13:06)
[2019-11-24] MEDS: MIDODRINE HCL 2.5 MG TAB PO SCH ×3 (08:08→16:50)
[2019-11-24] MEDS: POTASSIUM CHLORIDE / WTR 20 MEQ/100 ML PLCT IV SCH ×2 (08:08→13:44)
[2019-11-24] MEDS: MULTI VIT W/MINERALS LIQUID 15 ML UDP NG SCH (08:09)
[2019-11-24] MEDS: FLUOXETINE HCL 20 MG/5 ML UDP NG SCH (08:09)
[2019-11-24] MEDS: THIAMINE HCL 100 MG TAB NG SCH ×2 (08:32→20:49)
[2019-11-24] MEDS: ERTAPENEM SODIUM 1,000 MG in SODIUM CHLORIDE 0.9% 50 ML IV SCH (08:32)
[2019-11-24] MEDS ORDERED: CALCIUM GLUCONATE 10% 2,000 MG in SODIUM CHLORIDE 0.9% 50 ML IV ONE (10:30)
--- NOTE | 2019-11-24 11:05 | Critical Care Progress Note ---
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 Patient also has history of pulmonary embolism diagnosed 828 with left popliteal DVT Patient had received total 5 units PRBC and 4 units of FFP. IVC filter was barry warren 11/15/[address] Covarrubias Patient was downgraded on 11/19/2019 on midodrine 5 mg 3 times daily. She was started on metoprolol 12.5 mg twice daily as well. 11/20/2019 is when ICU was recalled given the patient was again hypotensive. Patient was awake alert oriented. Not in any acute distress. 11/21/2019: During the ICU stay patient was hemodynamically stable and subsequently downgraded later in the evening. 11/22/2019: Early in the morning patient was found to be hypotensive systolic blood pressure in the 55, lethargic and complaining of dizziness. This is the first time the patient has complained of dizziness with low blood pressure. H&H repeat was 7.1 which had gone down from 8.8. --New onset fever with shock Urine culture growing gram-negative bacilli --> E. coli ESBL With elevated procalcitonin and lactic acidosis. Patient has hx of low BP but never had lactic acidosis before Fever could be from retroperitoneal bleed itself. Retroperitoneal bleed has been found to cause fever Right lower extremity DVT which can also cause fever Continue with antibiotics Procalcitonin > 200 --> 84 Patient has significant bilateral pleural effusions at the time of admission most likely because of her underlying albumin. I do not think that they are the cause of sepsis. --Bilateral pleural effusion Likely from her low albumin Status post right-sided thoracentesis 11/23/2019 showing hemorrhagic fluid but as per lights criteria it is transudative. Patient did not have hematocrit sign upon bedside ultrasound and there has been no hematocrit sign appreciated on multiple CT abdomen pelvis done on the lower part of the pleural effusion. I do not think this is hemothorax. This is most likely slow oozing from underlying chronic effusions that she has. Unfortunately we are not able to do hematocrit here. --Retroperitoneal bleed Initially noted on CT 11/15/2019 with increased in size on 11/20/19. Repeat CT 11/22/19 showed stability of the retroperitoneal bled with drop in Hb Surgery has been on board did not think she will be a surgical candidate given the significant low albumin If the hemoglobin keeps on dropping the next best step would be to have IR to embolize the vessel which might be using. Patient got 2 more units of PRBC 11/22/2019 --Refeeding syndrome Patient was started on NGT feeding to increase her nutritional status but developed significant electrolyte abnormality This is most likely from refeeding syndrome. Would like to have potassium greater than 4, phosphorus greater than 3, magnesium greater than 2 for at least 24-48 hours before starting full feedings. Currently continue with D5 to keep blood sugar between 100-140. --Hyperbilirubinemia Has started to trend down as of 11/24/2019 It could be from amiodarone that the patient is getting Given that the AST, ALT and alk phos are within normal that I do not think this is secondary to hypertension or gallbladder issues. --Acute PE with left popliteal DVT and non occlusive Right common femoral DVT Contraindication to anticoagulation given retroperitoneal bleed as well as history of hemorrhagic conversion of MCA Status post IVC filter placement 11/15/2019 Currently off anticoagulation --Anasarca with bilateral pleural effusion Likely secondary to protein calorie malnutrition with albumin of 1 Continue with nutrition Echo showed EF 55-60% with mild LVH and small pericardial effusion, right ventricular size and function were normal. --History of CVA Large MCA 06/02/2019 --Thrombocytopenia New in onset after coming to ICU on 11/22/2019 Patient had normal fibrinogen as well as haptoglobin and factor VIII on 11/22/2019 which rules out DIC. Seems to be sepsis induced Continue to monitor. --Prophylaxis VTE: Contraindicated because of active bleed GI: Pantoprazole Lines: Right arm pick, left IJ, left radial arterial, NGT, Plata Diet: Regular Plan: In/out: +1.4 L , urine output 995 mL Patient growing ESBL in the urine. Change antibiotics to ertapenem. High anion gap metabolic acidosis. Delta delta less than 1. Gap plus non-gap. Non-gap could be from the bowel movements that the patient had poor urine. We will get urine lites. Etiology of gap is unsure. Her lactate is 1.7 and beta hydroxybutyric acid is also within normal limit. Hemoglobin today is 9.2. We will repeat H&H later today. Potassium magnesium being replaced today. Diuretics and feeding on hold as the patient has severe electrolyte abnormalities. Chest x-ray from today shows reaccumulation of the right-sided pleural fluid. Overall prognosis of the patient is guarded. I think we need to get ethics committee involved in the patient's care. I have personally spent 35 minutes of critical care time in the direct management of this patient. This is a life/limb threatening event. This includes time spent evaluating patient, direct bedside care, chart review, placing orders, interpretation of diagnostic studies, discussion with consultants, patient, and family members, as well as other required patient management activities. This time is exclusive of all separately billable procedures, and teaching time and separate from and in addition to any other critical care service time. Please note the above document was generated using voice recognition software. It may contain grammatical, syntax or spelling errors. (2) Deep vein thrombosis (DVT) of popliteal vein of left lower extremity: (3) Hemiplegia and hemiparesis following cerebral infarction affecting right dominant side: Admission and Anticipated Discharge Date Admission Date: November 11, 2019 Subjective Patient seen and examined at bedside. On Levophed 0.04. Vasopressin has been stopped. Her systolic blood pressure in the 80s map around 60-62. Patient is in no acute distress. Says that the belly pain has gone down. She did have a thoracentesis done on the right side yesterday which showed hemorrhagic pleural effusion. Denies any shortness of breath no chest pain. Answer the questions in yes and no as she is patient has expressive aphasia. No fever since coming to the ICU. Review of Systems Review of Systems: All systems reviewed & are unremarkable except as noted in Subjective Physical Exam Physical Exam: Constitutional: No acute distress HEENT: EOMI, PERRLA, right periorbital bruise Respiratory system: Decreased air entry bilaterally, no wheeze, no rhonchi, minimal crackles bilateral lower lobes CVS: S1-S2 positive, no murmurs or gallops Abdomen: Soft, right lower quadrant tenderness, no rebound, positive bowel sounds x4 Extremities: +1 pulses bilaterally radialis/dorsalis pedis, no cyanosis, +3 pitting edema bilateral lower extremity as well as right upper extremity. Anasarca Left upper extremity strength 5 out of 5, left lower extremity strength 4 out of 5, right upper extremity and right lower extremity strength 2 out of 5 Patient has purplish hue of bilateral foot and distal toes with good capillary refill. Neuro: Awake alert oriented x3 Psych: Normal mood and affect G/U: Positive Plata changed 11/23/2019 Skin: no rashes, warm and dry Lymphatic: + lymphedema Results & Data Results & Data ([facility] [place]) Vital Signs (Past 12 Hours) Vital Signs Temp Pulse Resp Pulse Ox 11/24/19 10:00 81 16 97 11/24/19 09:30 89 18 98 11/24/19 08:30 81 20 95 11/24/19 08:00 37 C 81 16 95 11/24/19 07:30 74 16 92 11/24/19 07:00 74 19 96 11/24/19 06:30 75 17 94 11/24/19 06:00 87 17 96 11/24/19 05:00 92 H 20 11/24/19 04:00 36.8 C 70 16 94 11/24/19 03:00 72 18 94 11/24/19 02:00 73 18 94 11/24/19 01:00 77 18 93 11/24/19 00:00 36.6 C 82 21 94 11/23/19 23:00 79 20 95 11/24/19 04:42 11/24/19 04:42 Coding Level of Care Code Critical Care 1st 30-74 mins Diagnoses Hypotension I95.9 Deep vein thrombosis (DVT) of popliteal vein of left lower extremity I82.432 Hemiplegia and hemiparesis following cerebral infarction affecting right dominant side I69.351 Time Spent (min) 35
[2019-11-24] MEDS: POTASSIUM ACETATE 20 MEQ in 0.9 % SODIUM CHLORIDE 100 ML IV SCH ×2 (11:30→13:06)
[2019-11-24] MEDS: PANTOprazole 40 MG in SYRINGE 0 ML IV SCH (11:30)
[2019-11-24 12:11] LABS: Hematocrit (blood only) 33.2 % (37-47); Hemoglobin 11.4 g/dL (12.0-16.0); Mean Corpuscular Hemoglobin 30.6 pg (25-34); Mean Corpuscular Hgb Conc 34.3 g/dL (32-36); Mean Corpuscular Volume 89.2 fL (80-100); RDW Coefficient of Variation 17.7 % (11.5-14.5); RDW Standard Deviation 57.1 fL (36.4-46.3); Red Blood Count 3.72 M/uL (4.2-5.4); White Blood Count 16.63 K/uL (4.8-10.8)
[2019-11-24 12:17] LABS: Mean Platelet Volume 11.5 fL (7.4-10.4); Platelet Count 48 K/uL (130-400)
[2019-11-24 12:30] LABS: Eosinophils # (auto) 0.09 K/uL (0-0.5); Eosinophils % (auto) 0.5 %; Immature Granulocytes # (auto) 0.08 K/uL (0.00-0.02); Immature Granulocytes % (auto) 0.5 %; Lymphocytes # (auto) 0.42 K/uL (1.2-3.4); Lymphocytes % (auto) 2.5 %; Monocytes # (auto) 0.43 K/uL (0.11-0.59); Monocytes % (auto) 2.6 %; Neutrophils # (auto) 15.61 K/uL (1.4-6.5); Neutrophils % (auto) 93.9 %
[2019-11-24] MEDS: ACETAMINOPHEN 325 MG TAB PO PRN (14:41)
[2019-11-24] MEDS: NOREPINEPHRINE BIT INJ 16 MG in DEXTROSE 5% 500 ML IV SCH ×2 (17:03→19:12)
[2019-11-24 17:25] LABS: BUN Creatinine Ratio 14.7 (10-20); Calcium 7.1 mg/dl (8.5-10.1); Creatinine Clr Calc Pharmacy 104.7 ml/min; Est GFR (Non-African American) 101.8; Magnesium 2.6 mg/dl (1.8-2.4); Phosphorus 3.5 mg/dl (2.5-4.9); Potassium 3.9 mmol/L (3.5-5.1)
[2019-11-24] MEDS ORDERED: POTASSIUM PHOS 3 MMOL/1 ML INFUSION IV STA (17:34)
[2019-11-24] MEDS ORDERED: POTASSIUM PHOSPHATE 15 MMOL in SODIUM CHLORIDE 0.9% 250 ML IV ONE (18:00)
[2019-11-24] MEDS ORDERED: FUROSEMIDE 40 MG in SYRINGE 0 ML IV ONE (18:00)
--- NOTE | 2019-11-24 19:50 | Hospitalist Progress Note ---
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 She has gone on to have a prolonged hospital stay due to a spontaneous retroperitoneal hemorrhage,ongoing hypotension, and now Plata catheter associated UTI and sepsis with septic shock. Her course has also been complicated by profound protein calorie malnutrition and hypoalbuminemia with anasarca. Continues to remain and ongoing issue; critically ill on vasopressors as of 11/20 On 11/10, she seemed to have acute change in her BP from 100/70 to 70/60. However, she continued to mentate well, lactate was normal, and no other evidence of end-organ damage. CT a/p showed no RP bleed (at that time) and stat echo showed good EF, no effusion, no right-heart strain. At that time, pulm/cc doctor did NOT feel her BP represented shock and declined ICU transfer. With small fluid boluses, she eventually maintained a BP ~90/60 and did ok. Blood pressure on 11/19 back consistently in the 70s-80s systolic with slight drop in hemoglobin and increase in retroperitoneal bleed since 5 days prior Severe hypoalbuminemia is contributing as well as anemia and bleeding On 11/20, spiked fever and now with sepsis with UTI although fever from RP bleed cannot be ruled out. Blood pressures again dropped to the 50s systolic and she had a central line placed and was started on Levophed and vasopressin Lactate is elevated secondary to hypoperfusion. Arterial line was placed on 11/20. Mentation is now improved since 11/21 and blood pressures are remaining low, weaned off vasopressin and remains on Levophed Transfused 2 units PRBCs on 11/21 Has received a couple of intermittent boluses of IV albumin -Continue midodrine to 7.5 mg per NG tube 3 times daily and wean off as able to -Continue Levophed and wean off as able to -Treating for sepsis with antibiotics as below -Ultimately, needs improved nutrition to improve albumin which has been limited by refeeding syndrome (2) Sepsis: With septic shock and lactic acidosis as above Spiked fever on the evening of 11/20. Chest x-ray with large bilateral pleural effusions although critical care does not think this is infected. Now status post thoracentesis on 11/22-culture no growth to date. Negative for C. difficile despite diarrhea Urinalysis consistent with UTI, with Plata catheter in place for extended period of time-exchanged Plata catheter on 11/22 Urine culture growing ESBL E. coli Could also be fever from retroperitoneal hemorrhage; could also have seeded infection in the RP bleed Leukocytosis is worsening today, procalcitonin is down to 88 from greater than 200 -Was on Zosyn, now changed to ertapenem as per auto parts delivery driver presumably for less volume and once daily dosing/ease of administration -Follow blood cultures-no growth to date (3) UTI (urinary tract infection): Patient had an E. coli UTI documented on 11/05. She had 3 days of cefdinir prior to admission. (Started on 11/05). -She had finished ceftriaxone x 3 days here early in the course Now with repeat UA on 11/21 is positive for recurrent infection-she has had Plata catheter in place throughout the admission-therefore this is a Plata catheter associated UTI Urine culture as above with ESBL E. coli -Continue antibiotics in the form of ertapenem-would complete 14-day course as long as Plata catheter remains in place (4) Thrombocytopenia: Platelets down again today to 53, fibrin degradation products are elevate d, INR is elevated, fibrinogen is normal, factor VIII activity is normal/high, DIC is ruled out Likely secondary to sepsis No evidence of further bleeding at this time, hemoglobin is labile but stable overall Follow CBC (5) Pleural effusion: With large bilateral pleural effusions Now status post thoracentesis with 600 mLs removed from the left side on 11/22- bloody pleural fluid, pH 7.43, protein and LDH consistent with transudative process, amylase 14. Gram stain without organisms, culture pending, cytology negative Follow cultures, AFB on pleural fluid HIV negative, hepatitis C negative Likely a result of low oncotic pressure from hypoalbuminemia plus also could have some, fluid coming from the retroperitoneal space which would account for the high RBCs in the setting of retroperitoneal bleeding (6) Abdominal pain: With worsening lower abdominal pain on the morning of 11/19 with nausea and vomiting. Repeat CT scan of the abdomen/pelvis showed significant increase in right-sided retroperitoneal hemorrhage compared to previous as well as increased right-sided intramuscular hemorrhage in the iliopsoas and iliacus No other cause found for nausea on CT scan-no obstruction or evidence of infection. -Discussed case with auto parts delivery driver at [facility] on 11/19 who said no indication for IR unless hemoglobin was dropping Hemoglobin did drop to 7.1 on 11/21, but could be from receiving IV albumin bolus and hemodilution especially given that repeat CT of the abdomen/pelvis on 11/21 shows no increase in size of bleed. She was transfused 2 more units PRBCs on 11/21 Hemoglobin remains overall stable anywhere from - but is highly labile- curious if this is spurious from the lab? Abdominal pain is improved now. C. difficile is negative (7) Nausea & vomiting: Possibly secondary to abdominal pain and worsening retroperitoneal bleed- now improved but is also not eating anything by mouth and tube feeds have been turned off due to refeeding syndrome Zofran as needed Has NG tube in place (8) Retroperitoneal bleed: Noted on CT a/p on 11/14. - Required 5 units PRBCs, 4 FFP, and 1 cryo all on 11/14 & 11/15. - IVC filter placed on 11/[address] Covarrubias due to DVT/PE and inability to anticoagulate. With worsening of RP and pelvic intramuscular bleed as above on CT scan on 11/[address] scan on 11/21 stable from 11/19 Then with hemoglobin down to 7.1 on 11/21-transfused another 2 units on 11/21 of PRBCs Hemoglobin now up anywhere from - -Now holding aspirin due to thrombocytopenia -Follow CBC (9) Pulmonary embolism: Was originally admitted for sinus tachycardia and found to have DVT and bilateral PEs CTA chest on 11/09 shows bilateral pulmonary emboli. Doppler on 11/09 showed left popliteal DVT. - Heparin gtt started on admission; held temporarily due to concern for life- threatening bleed, then restarted the morning of 11/10. - Stopped for good on 11/14 with RP bleed - Now with IVC filter in place CT abdomen/pelvis on 11/21 shows suspected right common femoral vein DVT. Lower extremity venous Doppler on 11/21 confirms DVT now in the right common femoral vein Will never be a good candidate for anticoagulation (10) Anasarca: Secondary to profound hypoalbuminemia from very poor nutrition. Patient's mother reports that she has not been eating much for over a year even prior to her stroke. Suspect that depression plays a role in this especially in the setting of significant stroke -IV albumin has been given on multiple occasions, then received IV albumin and Lasix together and attempt to diurese as per auto parts delivery driver Today is receiving IV Lasix by itself as per auto parts delivery driver Tube feeds were started on 11/20 but then on hold due to hypotension, refeeding syndrome, and on vasopressors Tube feeds were restarted again on 11/22 and again had severe electrolyte abnormalities on 11/23 Tube feeds now on hold Patient is indeed able to eat by mouth and has no trouble with swallowing, but chooses to eat minimally. Will keep n.p.o. for now, no tube feeds, and continue to replace electrolytes before trial of feeding again (11) Acute blood loss anemia: Hemoglobin dropped due to retroperitoneal bleed as above As above, transfused again for hemoglobin 7.1 on 11/21, hemoglobin now up to 11 as above -Follow CBC (12) Deep vein thrombosis (DVT) of popliteal vein of left lower extremity: Left, secondary to hypoproteinemia, massive anasarca Also now with new DVT on 11/21 and right common femoral vein -No anticoagulation as above secondary to severe retroperitoneal bleed Now with IVC filter in place (13) S/P insertion of IVC (inferior vena caval) filter: As above (14) Hemiplegia and hemiparesis following cerebral infarction affecting right dominant side: As above, secondary to large left MCA stroke and small right MCA stroke with asymptomatic hemorrhagic conversion as per notes from [facility] Bedbound, total care Continue statin but now hold aspirin due to thrombocytopenia (15) Protein calorie malnutrition: With severe protein calorie malnutrition Albumin severely low at 1.1 with anasarca, intermittent hypoglycemia, and starvation ketoacidosis Started tube feeds on 11/20 through NG tube and again a trial on 11/22 which resulted in refeeding syndrome and severe electrolyte abnormalities each time She is able to swallow as per speech evaluation, but perhaps major depressive disorder is contributing -She does not want a PEG tube ever Reminded her that NG tube is temporary -Continue Remeron and consider increasing to 30 mg for appetite stimulation and to treat depression -Consider psychiatry consultation Continue to replace electrolytes including phosphorus, potassium, magnesium, calcium (16) Coagulopathy: INR remains elevated at 1.6 despite several days in a row of receiving IV vitamin K. Likely a nutritional deficiency of vitamin K, but also with some possible hepatic congestion contributing to coagulopathy Was given IV vitamin K on 11/19 and again on 11/20, 11/21 Tube feeds for nutrition are now on hold (17) Hyperbilirubinemia: Bilirubin peaked at 2.7, direct bilirubin elevated at 1.3, now both trending downward Other LFTs negative/normal Reticulocyte count elevated but would be appropriate for acute bleed Could be from amiodarone-auto parts delivery driver has held this for now Could also be hypoperfusion of the liver from hypotension Follow LFTs in the morning (18) GERD (gastroesophageal reflux disease): - Continue pantoprazole through the IV (19) Major depressive disorder: With depressed affect, minimal p.o. intake - Continue fluoxetine, mirtazapine, and gabapentin -Consider increasing mirtazapine as above Consider psychiatry consult as above (20) Dysphagia: Due to prior stroke. - Aspiration precautions were undertaken - STENOTYPE OPERATOR consulted - Appreciate recs; no major concerns. Thinks she may need psychiatric consultation * Alternate solids and liquids * Alert and upright for meals * Meds in a carrier (applesauce/pudding) * Single bites/small sips (21) Atrial tachycardia: As above, paroxysmal atrial tachycardia. Tachycardia has now improved Holding amiodarone now Monitor on telemetry (22) Hypoglycemia: With hypoglycemia on 11/20 and some on 11/21, very poor p.o. intake -Tube feeds were started as above but are now on hold again due to refeeding syndrome -Continue Accu-Cheks every 4 hours, glucagon and D50 protocol as needed (23) History of cerebrovascular accident: History of large left MCA stroke and smaller right MCA distribution stroke in 05/2019, treated at [facility]. Had hemorrhagic conversion of the stroke. Thought to be thrombotic possibly due to reactive thrombocytosis to severe anemia. Hypercoagulable work-up was largely negative with some testing planned to be repeated in 12 weeks after discharge. Unclear if any of this was done. She has a loop recorder which is only showing paroxysmal atrial tachycardia but no atrial fibrillation or flutter -TRE was mildly positive at that time and is now negative -Now holding ASA due to thrombocytopenia -Continue statin - Neurology consulted - Appreciate consult (24) Sinus tachycardia: Patient has a known history of paroxysmal atrial tachycardia. Implanted loop recorder put in at [facility] during admission for CVA. - HR at [facility] was reportedly as high as 150, again possibly due to hypovolemia and PE as well as atrial tachycardia. - Cardiology consulted -> Appreciate recs With some tachycardia with profound hypotension, now improved - Started amiodarone 200 mg PO BID on 11/15; metoprolol 12.5 mg PO BID on 11/16. Midodrine started on 11/17 for continued low blood pressure. -Now with hypotension, continue to hold metoprolol -Amiodarone on hold now due to elevated bilirubin (25) DVT prophylaxis: None due to existing DVTs bilaterally and extremely delicate skin with anasarca as well as acute bleed Disposition-continued stay in the ICU, prognosis quite guarded Discussed her condition with the patient's permission with her mother, Rosalind, at phone number [phone] on 11/21. Rosalind states that she will come to try to visit she has not seen her daughter except for one brief visit through a window at the rehab several months ago. She did not understand that her daughter was total care and had right-sided hemiplegia as she was asking questions such as when can the patient come home and will she be able to drive a car again. I feel that she will better understand the patient's poor prognosis when she sees her in person. Patient is a full code Jointer Operator would like to discuss her case with the ethics committee given that she is refusing to eat and refusing PEG tube, get once full escalation of care and is a full code as these are not congruent with each other. Apparently patient has declined palliative consultation in the past. Admission and Anticipated Discharge Date Admission Date: November 11, 2019 Subjective Patient was weaned off vasopressin today and was weaned down on Levophed to a low-dose, blood pressures remained quite low. She is mentating and awake and answers questions appropriately with her expressive aphasia mostly with one-word answers. She indicates that her abdominal pain is still there but improved. Denies chest pain, but does admit to some shortness of breath. She is not hypoxic. Review of Systems Review of Systems: All systems reviewed & are unremarkable except as noted in HPI & below Physical Exam Constitutional: cooperative and + edematous; no acute distress, + not healthy appearing and not lethargic Eyes: + eyelid abnormality (right periorbital ecchymosis) and + anicteric sclerae ENMT: Nose: + external nose abnormality (NGT in place) Neck: trachea midline, no thyromegaly + abnormal visual inspection (Left IJ central venous catheter present) Respiratory: normal respiratory effort; no respiratory distress Auscultation: + diminished lung sounds (At the bases bilaterally); no crackles, no rhonchi and no wheezes Cardiovascular: Rate/Rhythm: regular rate and regular rhythm Heart Sounds: no murmur Extremities: + edema (3+ pitting edema in all extremities) and + vascular access device (Right upper extremity PICC line) Chest (Breasts): Chest: normal inspection of chest Gastrointestinal (Abdomen): Inspection/Auscultation: normal bowel sounds; abdomen not distended Percussion/Palpation: + abdomen tender (Across lower abdomen, minimal, improved) and abdomen soft; no guarding and abdomen not rigid Musculoskeletal: Extremities: no cyanosis and no clubbing Skin: no rashes, warm and dry Neurologic: + focal motor deficit (Right-sided hemiparesis) and awake; not confused Speech / Cognition: + expressive aphasia; normal cognition Psychiatric: Orientation: alert and cooperative Affect: + depressed affect Genitourinary: Plata catheter in place Results & Data Results & Data ([facility]) Vital Signs (Past 12 Hours) Vital Signs Temp Pulse Resp Pulse Ox 11/24/19 19:30 86 18 100 11/24/19 19:00 78 14 99 11/24/19 18:30 77 13 99 11/24/19 18:00 82 16 99 11/24/19 17:00 86 20 99 11/24/19 16:00 36.3 C L 87 17 98 11/24/19 15:00 89 16 98 11/24/19 14:00 87 16 99 11/24/19 13:00 90 17 99 11/24/19 12:00 36.4 C L 85 19 98 11/24/19 11:00 94 H 17 96 11/24/19 10:00 81 16 97 11/24/19 09:30 89 18 98 11/24/19 08:30 81 20 95 11/24/19 08:00 37 C 81 16 95 Laboratory Results 11/24/19 11/24/19 11/24/19 Range/Units 16:57 16:57 12:20 WBC (4.8-10.8) K/uL RBC (4.2-5.4) M/uL Hgb (12.0-16.0) g/dL Hct (37-47) % MCV (80-100) fL MCH (25-34) pg MCHC (32-36) g/dL RDW Std Deviation (36.4-46.3) fL RDW Coeff of Marcelina (11.5-14.5) % Plt Count (130-400) K/uL MPV (7.4-10.4) fL Immature Gran % (Auto) % Neut % (Auto) % Lymph % (Auto) % [place] % (Auto) % Eos % (Auto) % Baso % (Auto) % Neut # (Auto) (1.4-6.5) K/uL Lymph # (Auto) (1.2-3.4) K/uL [place] # (Auto) (0.11-0.59) K/uL Eos # (Auto) (0-0.5) K/uL Baso # (Auto) (0-0.2) K/uL Immature Gran # (Auto) (0.00-0.02) K/uL Platelet Estimate (Normal) Sodium 139 (136-145) mmol/L Potassium 3.9 D (3.5-5.1) mmol/L Chloride 111 H (98-107) mmol/L Carbon Dioxide 20 L (21-32) mmol/L Anion Gap 8.0 (3-11) BUN 10 (7-18) mg/dl Creatinine 0.67 (0.6-1.2) mg/dl Est Cr Clr Drug Dosing 104.7 ml/min Est GFR ( Amer) 118.0 Est GFR (Non-Af Amer) 101.8 BUN/Creatinine Ratio 14.7 (10-20) Glucose 77 (70-99) mg/dl POC Glucose (other) 89 (70-99) mg/dl Lactate (0.4-2.0) mmol/L Calcium 7.1 L D (8.5-10.1) mg/dl Phosphorus 3.5 Cancelled (2.5-4.9) mg/dl Magnesium 2.6 H Cancelled (1.8-2.4) mg/dl Total Bilirubin (0.2-1) mg/dl Direct Bilirubin (0-0.2) mg/dl AST (15-37) U/L ALT (12-78) U/L Alkaline Phosphatase (45-117) U/L Total Protein (6.4-8.2) gm/dl Albumin (3.4-5.0) gm/dl Beta-Hydroxybutyric Acd (0.2-2.81) mg/dl Procalcitonin (0-0.5) ng/ml Random Vancomycin mcg/ml HIV 1&2 Ab/P24 Ag 4thGn (Neg) Ref Lab Test Result 11/24/19 11/24/19 11/24/19 Range/Units 12:02 10:08 08:29 WBC 16.63 H (4.8-10.8) K/uL RBC 3.72 L (4.2-5.4) M/uL Hgb 11.4 L (12.0-16.0) g/dL Hct 33.2 L (37-47) % MCV 89.2 (80-100) fL MCH 30.6 (25-34) pg MCHC 34.3 (32-36) g/dL RDW Std Deviation 57.1 H (36.4-46.3) fL RDW Coeff of Marcelina 17.7 H (11.5-14.5) % Plt Count 48 L (130-400) K/uL MPV 11.5 H (7.4-10.4) fL Immature Gran % (Auto) 0.5 % Neut % (Auto) 93.9 % Lymph % (Auto) 2.5 % Archuleta % (Auto) 2.6 % Eos % (Auto) 0.5 % Baso % (Auto) 0.0 % Neut # (Auto) 15.61 H (1.4-6.5) K/uL Lymph # (Auto) 0.42 L (1.2-3.4) K/uL [place] # (Auto) 0.43 (0.11-0.59) K/uL Eos # (Auto) 0.09 (0-0.5) K/uL Baso # (Auto) 0.00 (0-0.2) K/uL Immature Gran # (Auto) 0.08 H (0.00-0.02) K/uL Platelet Estimate (Normal) Sodium (136-145) mmol/L Potassium (3.5-5.1) mmol/L Chloride (98-107) mmol/L Carbon Dioxide (21-32) mmol/L Anion Gap (3-11) BUN (7-18) mg/dl Creatinine (0.6-1.2) mg/dl Est Cr Clr Drug Dosing ml/min Est GFR ( Amer) Est GFR (Non-Af Amer) BUN/Creatinine Ratio (10-20) Glucose (70-99) mg/dl POC Glucose (other) 84 (70-99) mg/dl Lactate (0.4-2.0) mmol/L Calcium (8.5-10.1) mg/dl Phosphorus (2.5-4.9) mg/dl Magnesium (1.8-2.4) mg/dl Total Bilirubin (0.2-1) mg/dl Direct Bilirubin (0-0.2) mg/dl AST (15-37) U/L ALT (12-78) U/L Alkaline Phosphatase (45-117) U/L Total Protein (6.4-8.2) gm/dl Albumin (3.4-5.0) gm/dl Beta-Hydroxybutyric Acd (0.2-2.81) mg/dl Procalcitonin (0-0.5) ng/ml Random Vancomycin mcg/ml HIV 1&2 Ab/P24 Ag 4thGn Neg (Neg) Ref Lab Test Result 11/24/19 11/24/19 11/24/19 Range/Units 08:15 08:15 04:42 WBC (4.8-10.8) K/uL RBC (4.2-5.4) M/uL Hgb (12.0-16.0) g/dL Hct (37-47) % MCV (80-100) fL MCH (25-34) pg MCHC (32-36) g/dL RDW Std Deviation (36.4-46.3) fL RDW Coeff of Marcelina (11.5-14.5) % Plt Count (130-400) K/uL MPV (7.4-10.4) fL Immature Gran % (Auto) % Neut % (Auto) % Lymph % (Auto) % [place] % (Auto) % Eos % (Auto) % Baso % (Auto) % Neut # (Auto) (1.4-6.5) K/uL Lymph # (Auto) (1.2-3.4) K/uL [place] # (Auto) (0.11-0.59) K/uL Eos # (Auto) (0-0.5) K/uL Baso # (Auto) (0-0.2) K/uL Immature Gran # (Auto) (0.00-0.02) K/uL Platelet Estimate (Normal) Sodium (136-145) mmol/L Potassium (3.5-5.1) mmol/L Chloride (98-107) mmol/L Carbon Dioxide (21-32) mmol/L Anion Gap (3-11) BUN (7-18) mg/dl Creatinine (0.6-1.2) mg/dl Est Cr Clr Drug Dosing ml/min Est GFR ( Amer) Est GFR (Non-Af Amer) BUN/Creatinine Ratio (10-20) Glucose (70-99) mg/dl POC Glucose (other) (70-99) mg/dl Lactate 1.7 (0.4-2.0) mmol/L Calcium (8.5-10.1) mg/dl Phosphorus (2.5-4.9) mg/dl Magnesium (1.8-2.4) mg/dl Total Bilirubin (0.2-1) mg/dl Direct Bilirubin (0-0.2) mg/dl AST (15-37) U/L ALT (12-78) U/L Alkaline Phosphatase (45-117) U/L Total Protein (6.4-8.2) gm/dl Albumin (3.4-5.0) gm/dl Beta-Hydroxybutyric Acd 2.77 (0.2-2.81) mg/dl Procalcitonin 84.75 H (0-0.5) ng/ml Random Vancomycin mcg/ml HIV 1&2 Ab/P24 Ag 4thGn (Neg) Ref Lab Test Result 11/24/19 11/24/19 11/24/19 Range/Units 04:42 04:42 04:42 WBC 11.38 H (4.8-10.8) K/uL RBC 2.98 L (4.2-5.4) M/uL Hgb 9.2 L (12.0-16.0) g/dL Hct 26.6 L (37-47) % MCV 89.3 (80-100) fL MCH 30.9 (25-34) pg MCHC 34.6 (32-36) g/dL RDW Std Deviation 57.5 H (36.4-46.3) fL RDW Coeff of Marcelina 17.6 H (11.5-14.5) % Plt Count 53 L D (130-400) K/uL MPV 12.1 H (7.4-10.4) fL Immature Gran % (Auto) 1.1 % Neut % (Auto) 91.2 % Lymph % (Auto) 3.3 % Archule[place] % (Auto) 3.8 % Eos % (Auto) 0.6 % Baso % (Auto) 0.0 % Neut # (Auto) 10.37 H (1.4-6.5) K/uL Lymph # (Auto) 0.38 L (1.2-3.4) K/uL [place] # (Auto) 0.43 (0.11-0.59) K/uL Eos # (Auto) 0.07 (0-0.5) K/uL Baso # (Auto) 0.00 (0-0.2) K/uL Immature Gran # (Auto) 0.13 H (0.00-0.02) K/uL Platelet Estimate Decreased L (Normal) Sodium 143 (136-145) mmol/L Potassium 2.6 L D (3.5-5.1) mmol/L Chloride 121 H (98-107) mmol/L Carbon Dioxide 13 L (21-32) mmol/L Anion Gap 9.0 (3-11) BUN 8 (7-18) mg/dl Creatinine 0.39 L D (0.6-1.2) mg/dl Est Cr Clr Drug Dosing 179.9 ml/min Est GFR ( Amer) 140.9 Est GFR (Non-Af Amer) 121.6 BUN/Creatinine Ratio 21.7 H (10-20) Glucose 78 (70-99) mg/dl POC Glucose (other) (70-99) mg/dl Lactate (0.4-2.0) mmol/L Calcium 5.1 L* D (8.5-10.1) mg/dl Phosphorus 3.1 D (2.5-4.9) mg/dl Magnesium 1.4 L (1.8-2.4) mg/dl Total Bilirubin 2.5 H (0.2-1) mg/dl Direct Bilirubin 0.8 H (0-0.2) mg/dl AST 15 (15-37) U/L ALT 7 L (12-78) U/L Alkaline Phosphatase 41 L (45-117) U/L Total Protein 2.9 L (6.4-8.2) gm/dl Albumin 1.2 L (3.4-5.0) gm/dl Beta-Hydroxybutyric Acd (0.2-2.81) mg/dl Procalcitonin (0-0.5) ng/ml Random Vancomycin 11.3 mcg/ml HIV 1&2 Ab/P24 Ag 4thGn (Neg) Ref Lab Test Result 11/24/19 11/23/19 11/23/19 Range/Units 04:10 23:40 21:05 WBC (4.8-10.8) K/uL RBC (4.2-5.4) M/uL Hgb (12.0-16.0) g/dL Hct (37-47) % MCV (80-100) fL MCH (25-34) pg MCHC (32-36) g/dL RDW Std Deviation (36.4-46.3) fL RDW Coeff of Marcelina (11.5-14.5) % Plt Count (130-400) K/uL MPV (7.4-10.4) fL Immature Gran % (Auto) % Neut % (Auto) % Lymph % (Auto) % [place] % (Auto) % Eos % (Auto) % Baso % (Auto) % Neut # (Auto) (1.4-6.5) K/uL Lymph # (Auto) (1.2-3.4) K/uL [place] # (Auto) (0.11-0.59) K/uL Eos # (Auto) (0-0.5) K/uL Baso # (Auto) (0-0.2) K/uL Immature Gran # (Auto) (0.00-0.02) K/uL Platelet Estimate (Normal) Sodium (136-145) mmol/L Potassium (3.5-5.1) mmol/L Chloride (98-107) mmol/L Carbon Dioxide (21-32) mmol/L Anion Gap (3-11) BUN (7-18) mg/dl Creatinine (0.6-1.2) mg/dl Est Cr Clr Drug Dosing ml/min Est GFR ( Amer) Est GFR (Non-Af Amer) BUN/Creatinine Ratio (10-20) Glucose (70-99) mg/dl POC Glucose (other) 96 91 91 (70-99) mg/dl Lactate (0.4-2.0) mmol/L Calcium (8.5-10.1) mg/dl Phosphorus (2.5-4.9) mg/dl Magnesium (1.8-2.4) mg/dl Total Bilirubin (0.2-1) mg/dl Direct Bilirubin (0-0.2) mg/dl AST (15-37) U/L ALT (12-78) U/L Alkaline Phosphatase (45-117) U/L Total Protein (6.4-8.2) gm/dl Albumin (3.4-5.0) gm/dl Beta-Hydroxybutyric Acd (0.2-2.81) mg/dl Procalcitonin (0-0.5) ng/ml Random Vancomycin mcg/ml HIV 1&2 Ab/P24 Ag 4thGn (Neg) Ref Lab Test Result 11/23/19 Range/Units 11:30 WBC (4.8-10.8) K/uL RBC (4.2-5.4) M/uL Hgb (12.0-16.0) g/dL Hct (37-47) % MCV (80-100) fL MCH (25-34) pg MCHC (32-36) g/dL RDW Std Deviation (36.4-46.3) fL RDW Coeff of Marcelina (11.5-14.5) % Plt Count (130-400) K/uL MPV (7.4-10.4) fL Immature Gran % (Auto) % Neut % (Auto) % Lymph % (Auto) % [place] % (Auto) % Eos % (Auto) % Baso % (Auto) % Neut # (Auto) (1.4-6.5) K/uL Lymph # (Auto) (1.2-3.4) K/uL [place] # (Auto) (0.11-0.59) K/uL Eos # (Auto) (0-0.5) K/uL Baso # (Auto) (0-0.2) K/uL Immature Gran # (Auto) (0.00-0.02) K/uL Platelet Estimate (Normal) Sodium (136-145) mmol/L Potassium (3.5-5.1) mmol/L Chloride (98-107) mmol/L Carbon Dioxide (21-32) mmol/L Anion Gap (3-11) BUN (7-18) mg/dl Creatinine (0.6-1.2) mg/dl Est Cr Clr Drug Dosing ml/min Est GFR ( Amer) Est GFR (Non-Af Amer) BUN/Creatinine Ratio (10-20) Glucose (70-99) mg/dl POC Glucose (other) (70-99) mg/dl Lactate (0.4-2.0) mmol/L Calcium (8.5-10.1) mg/dl Phosphorus (2.5-4.9) mg/dl Magnesium (1.8-2.4) mg/dl Total Bilirubin (0.2-1) mg/dl Direct Bilirubin (0-0.2) mg/dl AST (15-37) U/L ALT (12-78) U/L Alkaline Phosphatase (45-117) U/L Total Protein (6.4-8.2) gm/dl Albumin (3.4-5.0) gm/dl Beta-Hydroxybutyric Acd (0.2-2.81) mg/dl Procalcitonin (0-0.5) ng/ml Random Vancomycin mcg/ml HIV 1&2 Ab/P24 Ag 4thGn (Neg) Ref Lab Test Result Diagnostic Findings Chest x-ray image personally reviewed by me and agree with the following report: XR chest 1V portable HISTORY: 49 years-old Female resp failure/ effusion acute respiratory failure COMPARISON: Chest radiograph 11/23/2019 TECHNIQUE: Portable AP view of the chest FINDINGS: Right sided PICC, left IJ central venous catheter and enteric tubes appear to be in unchanged positioning. Cardiomegaly with persistent bilateral mixed interstitial and alveolar opacities. Slightly progressed opacities throughout the right lung. No pneumothorax. Unchanged pleural effusions with bibasilar consolidation. Sigmoidal thoracolumbar scoliosis. Bones appear grossly intact. Loop recorder device. IMPRESSION: 1. Stable positioning of life-support lines and tubes. 2. Cardiomegaly with persistent bilateral mixed interstitial and alveolar opacities, moderately worsened on the right suggestive of pulmonary edema and/or multifocal pneumonia. 3. Unchanged pleural effusions with bibasilar consolidation. PG Care Time/CCT Total # of Minutes Spent Total Time Spent with Patient: Total time spent is greater than 50% in coordination of care (as documented) at patient's floor/unit and/or counseling patient: Coding Level of Care Code 58153 Subseq Hosp Care Lvl 3 Diagnoses Hypotension I95.9 Sepsis A41.9 UTI (urinary tract infection) N30.00 Hematuria presence: without hematuria Urinary tract infection type: acute cystitis Thrombocytopenia D69.6 Pleural effusion J90 Abdominal pain R10.9 Nausea & vomiting R11.2 Retroperitoneal bleed R58 Pulmonary embolism I26.99 Anasarca R60.1 Acute blood loss anemia D62 Deep vein thrombosis (DVT) of popliteal vein of left lower extremity I82.432 S/P insertion of IVC (inferior vena caval) filter Z95.828 Hemiplegia and hemiparesis following cerebral infarction affecting right dominant side I69.351 Protein calorie malnutrition E46 Coagulopathy D68.9 Hyperbilirubinemia E80.6 GERD (gastroesophageal reflux disease) K21.9 Major depressive disorder F32.9 Dysphagia R13.10 Atrial tachycardia I47.1 Hypoglycemia E16.2 History of cerebrovascular accident Z86.73 Sinus tachycardia R00.0 DVT prophylaxis Z29.9 (1) UTI (urinary tract infection) Hematuria presence: without hematuria Urinary tract infection type: acute cystitis Qualified Code(s): N30.00 - Acute cystitis without hematuria
[2019-11-24] MEDS: MENTHOL-ZINC OXIDE 360 APPLN/120 GM TUBE EXT PRN (20:00)
[2019-11-24] MEDS: MIRTAZAPINE TAB 15 MG TAB NG SCH (20:48)
[2019-11-24] MEDS: ATORVASTATIN 40 MG TAB NG SCH (20:49)
[2019-11-24] MEDS: CARBOHYDRATES FOR HYPOGLYCEMIA PO PRN (23:59)
[2019-11-25] MEDS: MENTHOL-ZINC OXIDE 360 APPLN/120 GM TUBE EXT PRN ×4 (00:01→21:18)
[2019-11-25 05:02] LABS: Mean Corpuscular Hgb Conc 34.5 g/dL (32-36)
[2019-11-25 05:23] LABS: Hemoglobin 11.4 g/dL (12.0-16.0); Mean Corpuscular Hemoglobin 30.8 pg (25-34); Mean Corpuscular Volume 89.2 fL (80-100); RDW Coefficient of Variation 17.5 % (11.5-14.5); White Blood Count 11.97 K/uL (4.8-10.8)
[2019-11-25 05:46] LABS: Platelet Count 53 K/uL (130-400)
[2019-11-25 05:47] LABS: Echinocytes 1+; Eosinophils # (auto) 0.17 K/uL (0-0.5); Eosinophils % (auto) 1.4 %; Giant Platelets 1+; Immature Granulocytes # (auto) 0.04 K/uL (0.00-0.02); Immature Granulocytes % (auto) 0.3 %; Lymphocytes # (auto) 0.35 K/uL (1.2-3.4); Lymphocytes % (auto) 2.9 %; Monocytes # (auto) 0.38 K/uL (0.11-0.59); Monocytes % (auto) 3.2 %; Neutrophils # (auto) 11.03 K/uL (1.4-6.5); Neutrophils % (auto) 92.2 %; Platelet Estimate Decreased (Normal)
[2019-11-25 05:52] LABS: BUN Creatinine Ratio 12.4 (10-20); Calcium 7.1 mg/dl (8.5-10.1); Creatinine Clr Calc Pharmacy 97.4 ml/min; Est GFR (African American) 112.4; Magnesium 2.4 mg/dl (1.8-2.4); Phosphorus 3.9 mg/dl (2.5-4.9); Potassium 3.6 mmol/L (3.5-5.1)
[2019-11-25] MEDS ORDERED: ICU ELECTROLYTE REPLACEMENT PROTOCOL PRN (07:47)
[2019-11-25] MEDS: ERTAPENEM SODIUM 1,000 MG in SODIUM CHLORIDE 0.9% 50 ML IV SCH (08:22)
[2019-11-25] MEDS: MULTI VIT W/MINERALS LIQUID 15 ML UDP NG SCH (08:23)
[2019-11-25] MEDS: THIAMINE HCL 100 MG TAB NG SCH ×2 (08:23→21:55)
[2019-11-25] MEDS: ALBUMIN 25% 50 ML IV SCH ×2 (08:23→21:57)
[2019-11-25] MEDS: MIDODRINE HCL 2.5 MG TAB PO SCH ×3 (08:23→16:43)
[2019-11-25] MEDS ORDERED: POTASSIUM PHOS 3 MMOL/1 ML INFUSION IV STA (09:46)
[2019-11-25] MEDS ORDERED: POTASSIUM CHLORIDE / WTR 20 MEQ/100 ML PLCT IV SCH (10:00)
[2019-11-25] MEDS: FUROSEMIDE 40 MG in SYRINGE 0 ML IV SCH ×2 (10:12→23:18)
[2019-11-25] MEDS: FLUOXETINE HCL 20 MG/5 ML UDP NG SCH (10:12)
[2019-11-25] MEDS ORDERED: POTASSIUM PHOSPHATE 15 MMOL in SODIUM CHLORIDE 0.9% 250 ML IV ONE (10:30)
--- NOTE | 2019-11-25 11:01 | Critical Care Progress Note ---
Date of Service November 25, 2019 Assessment & Plan (1) Hypotension: 49-year-old female with past medical history of large left MCA and small right MCA stroke with cerebral edema and subsequent hemorrhagic conversion May 2019, she was initially in the ICU and downgraded yesterday which is 11/19/2019 for persistent tachycardia and undifferentiated shock and retroperitoneal hematoma which was found on CT 11/15/2019. Patient also has history of pulmonary embolism diagnosed 828 with left popliteal DVT Patient had received total 5 units PRBC and 4 units of FFP. IVC filter was barry warren 11/15/[address] Covarrubias Patient was downgraded on 11/19/2019 on midodrine 5 mg 3 times daily. She was started on metoprolol 12.5 mg twice daily as well. 11/20/2019 is when ICU was recalled given the patient was again hypotensive. Patient was awake alert oriented. Not in any acute distress. 11/21/2019: During the ICU stay patient was hemodynamically stable and subsequently downgraded later in the evening. 11/22/2019: Early in the morning patient was found to be hypotensive systolic blood pressure in the 55, lethargic and complaining of dizziness. This is the first time the patient has complained of dizziness with low blood pressure. H&H repeat was 7.1 which had gone down from 8.8. --Septic shock Urine culture growing gram-negative bacilli --> E. coli ESBL With elevated procalcitonin and lactic acidosis. Patient has hx of low BP but never had lactic acidosis before Fever could be from retroperitoneal bleed itself. Retroperitoneal bleed has been found to cause fever Right lower extremity DVT which can also cause fever Continue with antibiotics Procalcitonin > 200 --> 84 Patient has significant bilateral pleural effusions at the time of admission most likely because of her underlying albumin. I do not think that they are the cause of sepsis. --Bilateral pleural effusion Likely from her low albumin Status post right-sided thoracentesis 11/23/2019 showing hemorrhagic fluid but as per lights criteria it is transudative. Patient did not have hematocrit sign upon bedside ultrasound and there has been no hematocrit sign appreciated on multiple CT abdomen pelvis done on the lower part of the pleural effusion. I do not think this is hemothorax. This is most likely slow oozing from underlying chronic effusions that she has. Unfortunately we are not able to do hematocrit here. --Retroperitoneal bleed Initially noted on CT 11/15/2019 with increased in size on 11/20/19. Repeat CT 11/22/19 showed stability of the retroperitoneal bled with drop in Hb Surgery has been on board did not think she will be a surgical candidate given the significant low albumin If the hemoglobin keeps on dropping the next best step would be to have IR to embolize the vessel which might be using. Patient got 2 more units of PRBC 11/22/2019 --Refeeding syndrome Patient was started on NGT feeding to increase her nutritional status but developed significant electrolyte abnormality This is most likely from refeeding syndrome. Would like to have potassium greater than 4, phosphorus greater than 3, magnesium greater than 2 for at least 24-48 hours before starting full feedings. Currently continue with D5 to keep blood sugar between 100-140. --Hyperbilirubinemia Has started to trend down as of 11/24/2019 It could be from amiodarone that the patient is getting Given that the AST, ALT and alk phos are within normal that I do not think this is secondary to hypertension or gallbladder issues. --Acute PE with left popliteal DVT and non occlusive Right common femoral DVT Contraindication to anticoagulation given retroperitoneal bleed as well as history of hemorrhagic conversion of MCA Status post IVC filter placement 11/15/2019 Currently off anticoagulation --Anasarca with bilateral pleural effusion Likely secondary to protein calorie malnutrition with albumin of 1 Continue with nutrition Echo showed EF 55-60% with mild LVH and small pericardial effusion, right ventricular size and function were normal. --History of CVA Large MCA 06/02/2019 --Thrombocytopenia New in onset after coming to ICU on 11/22/2019 Patient had normal fibrinogen as well as haptoglobin and factor VIII on 11/22/2019 which rules out DIC. Seems to be sepsis induced Continue to monitor. --Prophylaxis VTE: Contraindicated because of active bleed GI: Pantoprazole Lines: Right arm picc, left IJ, left radial arterial, NGT, Plata Diet: Tube feeds trophic Plan: In/out: + 200 L , urine output 1455 mL Continue with antibiotics for ESBL E. coli in the urine. WBC trending down Hemoglobin is stable Diuretics and feeding on hold as the patient has severe electrolyte abnormali ties. Chest x-ray from today shows reaccumulation of the right-sided pleural fluid. Restart Lasix with 25% albumin twice daily. Try to keep patient negative balance. We will start the patient on potassium 20-minute equivalence twice daily via the NGT along with Mag-Ox 400 mg twice daily. Overall prognosis of the patient is guarded. We will need to get ethics committee involved to see what will be a goals of care going forward from here. I have personally spent 35 minutes of critical care time in the direct management of this patient. This is a life/limb threatening event. This includes time spent evaluating patient, direct bedside care, chart review, placing orders, interpretation of diagnostic studies, discussion with consultants, patient, and family members, as well as other required patient management activities. This time is exclusive of all separately billable procedures, and teaching time and separate from and in addition to any other critical care service time. Please note the above document was generated using voice recognition software. It may contain grammatical, syntax or spelling errors. (2) Deep vein thrombosis (DVT) of popliteal vein of left lower extremity: (3) Hemiplegia and hemiparesis following cerebral infarction affecting right dominant side: Admission and Anticipated Discharge Date Admission Date: November 11, 2019 Subjective Patient seen and examined at bedside. No acute distress, no adverse events overnight. Patient was on 0.02 Levophed at the time of examination. She was off vasopressor support for 5 to 6 hours yesterday but when her systolic blood pressure went to 70s she was restarted at low-dose. Patient answers questions with yes and no. Denies any significant abdominal pain. Denies any respiratory distress. No chest pain. Review of Systems Review of Systems: All systems reviewed & are unremarkable except as noted in Subjective Physical Exam Physical Exam: Constitutional: No acute distress HEENT: EOMI, PERRLA, right periorbital bruise Respiratory system: Decreased air entry bilaterally, no wheeze, no rhonchi, minimal crackles bilateral lower lobes CVS: S1-S2 positive, no murmurs or gallops Abdomen: Soft, right lower quadrant tenderness, no rebound, positive bowel sounds x4 Extremities: +1 pulses bilaterally radialis/dorsalis pedis, no cyanosis, +3 pitting edema bilateral lower extremity as well as right upper extremity. Anasarca Left upper extremity strength 5 out of 5, left lower extremity strength 4 out of 5, right upper extremity and right lower extremity strength 2 out of 5 Patient has purplish hue of bilateral foot and distal toes with good capillary refill. Neuro: Awake alert to self and place Psych: Normal mood and affect G/U: Positive Plata changed 11/23/2019 Skin: no rashes, warm and dry Lymphatic: + lymphedema Results & Data Results & Data ([facility]) Vital Signs (Past 12 Hours) Vital Signs Temp Pulse Resp BP Pulse Ox 11/25/19 10:15 96 H 16 97 11/25/19 10:00 36.9 C 89 16 98 11/25/19 09:45 96 H 14 97 11/25/19 09:30 89 13 97 11/25/19 09:15 93 H 13 96 11/25/19 09:00 91 H 14 97 11/25/19 08:45 94 H 15 98 11/25/19 08:30 94 H 16 97 11/25/19 08:15 95 H 15 97 11/25/19 08:00 91 H 16 97 11/25/19 07:45 98 H 17 97 11/25/19 07:30 94 H 17 98 11/25/19 07:15 85 13 98 11/25/19 07:00 87 12 98 11/25/19 06:00 87 15 99 11/25/19 05:00 88 20 97 11/25/19 04:51 100 H 17 130/79 89 L 11/25/19 04:50 101 H 19 125/82 11/25/19 04:00 87 14 95 11/25/19 03:00 97 H 14 95 11/25/19 02:00 98 H 14 95 11/25/19 01:00 91 H 16 98 11/25/19 00:00 36.3 C L 101 H 17 99 11/24/19 23:00 91 H 16 97 11/25/19 04:34 11/25/19 04:34 Coding Level of Care Code Critical Care 1st 30-74 mins Diagnoses Hypotension I95.9 Deep vein thrombosis (DVT) of popliteal vein of left lower extremity I82.432 Hemiplegia and hemiparesis following cerebral infarction affecting right dominant side I69.351 Time Spent (min) 35
[2019-11-25] MEDS: PANTOprazole 40 MG in SYRINGE 0 ML IV SCH (11:04)
[2019-11-25] MEDS ORDERED: POTASSIUM PHOSPHATE MONOBASIC 500 MG TAB PO SCH (12:00)
[2019-11-25] MEDS ORDERED: POT PHOSPHATE MONOBASIC W/ SOD TAB PO SCH (12:00)
[2019-11-25] MEDS: ACETAMINOPHEN 325 MG TAB PO PRN ×2 (12:09→17:34)
[2019-11-25] MEDS: LOPERAMIDE LIQUID 120 ML BOTTLE PO PRN (12:09)
[2019-11-25] MEDS: POT PHOSPHATE MONOBASIC W/ SOD TAB NG SCH ×2 (12:09→21:58)
[2019-11-25] MEDS ORDERED: PROSOURCE NO CARB 30 ML/PKT PO ONE (14:30)
[2019-11-25 14:39] LABS: Calcium 7.1 mg/dl (8.5-10.1); Creatinine Clr Calc Pharmacy 109.6 ml/min; Est GFR (African American) 119.7; Est GFR (Non-African American) 103.3; Magnesium 2.2 mg/dl (1.8-2.4); Potassium 3.4 mmol/L (3.5-5.1)
[2019-11-25 14:44] LABS: Phosphorus 5.1 mg/dl (2.5-4.9)
[2019-11-25] MEDS: POTASSIUM CHLORIDE / WTR 20 MEQ/100 ML PLCT IV SCH ×2 (15:22→17:08)
[2019-11-25] MEDS: PROSOURCE NO CARB 30 ML/PKT NG SCH (15:23)
[2019-11-25] MEDS: PEPTAMEN INTENSE VHP 1.0 CAL 1,000 ML BAG GT SCH (15:23)
--- NOTE | 2019-11-25 19:30 | Hospitalist Progress Note ---
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 She has gone on to have a prolonged hospital stay due to a spontaneous retroperitoneal hemorrhage,ongoing hypotension, and now Plata catheter associated UTI and sepsis with septic shock. Her course has also been complicated by profound protein calorie malnutrition and hypoalbuminemia with anasarca. Continues to remain an ongoing issue; was on vasopressors from 11/20, but weaned off on 11/24 On 11/10, she seemed to have acute change in her BP from 100/70 to 70/60. However, she continued to mentate well, lactate was normal, and no other evidence of end-organ damage. CT a/p showed no RP bleed (at that time) and stat echo showed good EF, no effusion, no right-heart strain. At that time, pulm/cc doctor did NOT feel her BP represented shock and declined ICU transfer. With small fluid boluses, she eventually maintained a BP ~90/60 and did ok. Blood pressure on 11/19 back consistently in the 70s-80s systolic with slight drop in hemoglobin and increase in retroperitoneal bleed since 5 days prior Severe hypoalbuminemia is contributing as well as anemia and bleeding On 11/20, spiked fever and then had hypotension secondary to sepsis with UTI although fever from RP bleed cannot be ruled out. Blood pressures again dropped to the 50s systolic and she had a central line placed and was started on Levophed and vasopressin Lactate is elevated secondary to hypoperfusion. Arterial line was placed on 11/20. Mentation is now improved since 11/21 and blood pressures are remaining low, weaned off vasopressin and now off Levophed Transfused 2 units PRBCs on 11/21 Has received intermittent boluses of IV albumin -Continue midodrine to 7.5 mg per NG tube 3 times daily and wean off as able to -Treating for sepsis with antibiotics as below -Ultimately, needs improved nutrition to improve albumin which has been limited by refeeding syndrome-this was reiterated today with the patient and her friend at the bedside who will encourage her to eat (2) Sepsis: With septic shock and lactic acidosis as above Spiked fever on the evening of 11/20. Chest x-ray with large bilateral pleural effusions although critical care does not think this is infected. Now status post thoracentesis on 11/22-culture no growth to date. Negative for C. difficile despite diarrhea Urinalysis consistent with UTI, with Plata catheter in place for extended period of time-exchanged Plata catheter on 11/22 Urine culture growing ESBL E. coli Could also be fever from retroperitoneal hemorrhage; could also have seeded infection in the RP bleed Leukocytosis is now improving, procalcitonin is down to 88 from greater than 200 -Was on Zosyn, now changed to ertapenem as per wet char conveyor tender presumably for less volume and once daily dosing/ease of administration -Follow blood cultures-no growth to date (3) UTI (urinary tract infection): Patient had an E. coli UTI documented on 11/05. She had 3 days of cefdinir prior to admission. (Started on 11/05). -She had finished ceftriaxone x 3 days here early in the course As above, now with repeat UA on 11/21 is positive for recurrent infection-she has had Plata catheter in place throughout the admission-therefore this is a Plata catheter associated UTI Urine culture as above with ESBL E. coli -Continue antibiotics in the form of ertapenem-would complete 14-day course as long as Plata catheter remains in place (4) Thrombocytopenia: Platelets improved to 53, fibrin degradation products are elevated, INR is elevated, fibrinogen is normal, factor VIII activity is normal/high, DIC is ruled out Likely secondary to sepsis No evidence of further bleeding at this time, hemoglobin is labile but stable overall Follow CBC (5) Pleural effusion: With large bilateral pleural effusions Now status post thoracentesis with 600 mLs removed from the left side on 11/22- bloody pleural fluid, pH 7.43, protein and LDH consistent with transudative process, amylase 14. Gram stain without organisms, culture pending, cytology negative Follow cultures, AFB on pleural fluid HIV negative, hepatitis C negative Likely a result of low oncotic pressure from hypoalbuminemia plus also could h ave some, fluid coming from the retroperitoneal space which would account for the high RBCs in the setting of retroperitoneal bleeding (6) Abdominal pain: With worsening lower abdominal pain on the morning of 9/7 with nausea and vomiting. Repeat CT scan of the abdomen/pelvis showed significant increase in right-sided retroperitoneal hemorrhage compared to previous as well as increased right-sided intramuscular hemorrhage in the iliopsoas and iliacus No other cause found for nausea on CT scan-no obstruction or evidence of infection. -Discussed case with wet char conveyor tender at [facility] on 11/19 who said no indication for IR unless hemoglobin was dropping Hemoglobin did drop to 7.1 on 11/21, but could be from receiving IV albumin bolus and hemodilution especially given that repeat CT of the abdomen/pelvis on 11/21 shows no increase in size of bleed. She was transfused 2 more units PRBCs on 11/21 Hemoglobin remains overall stable anywhere from - but is highly labile- curious if this is spurious from the lab? Abdominal pain is improved now. C. difficile is negative (7) Nausea & vomiting: Possibly secondary to abdominal pain and worsening retroperitoneal bleed- now resolved but has low appetite, refuses to eat by mouth Zofran as needed Has NG tube in place (8) Retroperitoneal bleed: Noted on CT a/p on 11/14. - Required 5 units PRBCs, 4 FFP, and 1 cryo all on 11/14 & 11/15. - IVC filter placed on 11/[address] Covarrubias due to DVT/PE and inability to anticoagulate. With worsening of RP and pelvic intramuscular bleed as above on CT scan on 11/[address] scan on 11/21 stable from 11/19 Then with hemoglobin down to 7.1 on 11/21-transfused another 2 units on 11/21 of CO BCs Hemoglobin now up and stable at 11 -Now holding aspirin due to thrombocytopenia -Follow CBC (9) Pulmonary embolism: Was originally admitted for sinus tachycardia and found to have DVT and bilateral PEs CTA chest on 11/09 shows bilateral pulmonary emboli. Doppler on 11/09 showed left popliteal DVT. - Heparin gtt started on admission; held temporarily due to concern for life- threatening bleed, then restarted the morning of 11/10. - Stopped for good on 11/14 with RP bleed - Now with IVC filter in place CT abdomen/pelvis on 11/21 shows suspected right common femoral vein DVT. Lower extremity venous Doppler on 11/21 confirms DVT now in the right common femoral vein Will never be a good candidate for anticoagulation (10) Anasarca: Secondary to profound hypoalbuminemia from very poor nutrition. Patient's mother reports that she has not been eating much for over a year even prior to her stroke. Suspect that depression plays a role in this especially in the setting of significant stroke-patient confirms and agrees with this assessment -IV albumin has been given on multiple occasions, then received IV albumin and Lasix together and attempt to diurese as per wet char conveyor tender Continue with IV albumin and Lasix today, is diuresing somewhat Tube feeds were started on 11/20 but then on hold due to hypotension, refeeding syndrome, and on vasopressors Tube feeds were restarted again on 11/22 and again had severe electrolyte abnormalities on 11/23 Tube feeds restarted at trophic rate on 11/24 Patient is indeed able to eat by mouth and has no trouble with swallowing, but chooses to eat minimally. Follow I's and O's, daily weights (11) Acute blood loss anemia: Hemoglobin dropped due to retroperitoneal bleed as above As above, transfused again for hemoglobin 7.1 on 11/21, hemoglobin now up to 11 as above -Follow CBC (12) Deep vein thrombosis (DVT) of popliteal vein of left lower extremity: Left, secondary to hypoproteinemia, massive anasarca Also now with new DVT on 11/21 and right common femoral vein -No anticoagulation as above secondary to severe retroperitoneal bleed Now with IVC filter in place (13) S/P insertion of IVC (inferior vena caval) filter: As above (14) Hemiplegia and hemiparesis following cerebral infarction affecting right dominant side: As above, secondary to large left MCA stroke and small right MCA stroke with asymptomatic hemorrhagic conversion as per notes from [facility] Bedbound, total care Continue statin but now hold aspirin due to thrombocytopenia (15) Protein calorie malnutrition: With severe protein calorie malnutrition Albumin severely low at 1.1 with anasarca, intermittent hypoglycemia, and starvation ketoacidosis Started tube feeds on 11/20 through NG tube and again a trial on 11/22 which resulted in refeeding syndrome and severe electrolyte abnormalities each time She is able to swallow as per speech evaluation, but perhaps major depressive disorder is contributing -She does not want a PEG tube ever Reminded her that NG tube is temporary -Continue Remeron and consider increasing to 30 mg for appetite stimulation and to treat depression-discussed with patient but will hold off on doing this for now as it can cause excessive sedation and may affect mental status -Consider psychiatry consultation Continue to replace electrolytes including phosphorus, potassium, magnesium, calcium (16) Coagulopathy: INR remains elevated at 1.6 despite several days in a row of receiving IV vitamin K. Likely a nutritional deficiency of vitamin K, but also with some possible hepatic congestion contributing to coagulopathy Was given IV vitamin K on 11/19 and again on 11/20, 11/21 Tube feeds restarted today (17) Hyperbilirubinemia: Bilirubin peaked at 2.7, direct bilirubin elevated at 1.3, now both trending downward Other LFTs negative/normal Reticulocyte count elevated but would be appropriate for acute bleed Could be from amiodarone-wet char conveyor tender has held this for now Could also be hypoperfusion of the liver from hypotension Follow LFTs in the morning (18) GERD (gastroesophageal reflux disease): - Continue pantoprazole through the IV (19) Major depressive disorder: With depressed affect, minimal p.o. intake - Continue fluoxetine, mirtazapine, and gabapentin -Consider increasing mirtazapine as above Consider psychiatry consult as above (20) Dysphagia: Due to prior stroke. - Aspiration precautions were undertaken - SCRIPT READER consulted - Appreciate recs; no major concerns. Thinks she may need psychiatric consultation * Alternate solids and liquids * Alert and upright for meals * Meds in a carrier (applesauce/pudding) * Single bites/small sips (21) Atrial tachycardia: As above, paroxysmal atrial tachycardia. Tachycardia has now improved Holding amiodarone now Monitor on telemetry (22) Hypoglycemia: With hypoglycemia on 11/20 and some on 11/21 and on the evening of 11/23, very poor p.o. intake -Tube feeds were started as above -Continue Accu-Cheks every 4 hours, glucagon and D50 protocol as needed (23) History of cerebrovascular accident: History of large left MCA stroke and smaller right MCA distribution stroke in 05/2019, treated at [facility]. Had hemorrhagic conversion of the stroke. Thought to be thrombotic possibly due to reactive thrombocytosis to severe anemia. Hypercoagulable work-up was largely negative with some testing p lanned to be repeated in 12 weeks after discharge. Unclear if any of this was done. She has a loop recorder which is only showing paroxysmal atrial tachycardia but no atrial fibrillation or flutter -TRE was mildly positive at that time and is now negative -Now holding ASA due to thrombocytopenia -Continue statin - Neurology consulted - Appreciate consult (24) Sinus tachycardia: Patient has a known history of paroxysmal atrial tachycardia. Implanted loop recorder put in at [facility] during admission for CVA. - HR at [facility] was reportedly as high as 150, again possibly due to hypovolemia and PE as well as atrial tachycardia. - Cardiology consulted -> Appreciate recs With some tachycardia with profound hypotension, now improved - Started amiodarone 200 mg PO BID on 11/15; metoprolol 12.5 mg PO BID on 11/16. Midodrine started on 11/17 for continued low blood pressure. -Now with hypotension, continue to hold metoprolol -Amiodarone on hold now due to elevated bilirubin (25) DVT prophylaxis: None due to existing DVTs bilaterally and extremely delicate skin with anasarca as well as acute bleed Disposition-continued stay in the ICU, prognosis quite guarded Discussed her condition with the patient's permission with her mother, Rosalind, at phone number [phone] on 11/21. Rosalind states that she will come to try to visit she has not seen her daughter except for one brief visit through a window at the rehab several months ago. She did not understand that her daughter was total care and had right-sided hemiplegia as she was asking questions such as when can the patient come home and will she be able to drive a car again. I feel that she will better understand the patient's poor prognosis when she sees her in person. Patient is a full code Rebeamer would like to discuss her case with the ethics committee given that she is refusing to eat and refusing PEG tube, get once full escalation of care and is a full code as these are not congruent with each other. Apparently patient has declined palliative consultation in the past. Admission and Anticipated Discharge Date Admission Date: November 11, 2019 Subjective Patient was weaned off Levophed today and blood pressures remain in the 80s systolic through the arterial line. She was started on trophic feeds through the tube again and electrolytes have been replaced. She reports only some abdominal pain. She had 1 bite of eggs today but refused to even have her food trays brought in the room. When asked if she has a poor appetite she says yes. When asked if she feels depressed she says yes. She thinks that her lack of eating comes from her depression when I asked if this is the case. She answers only yes and no questions. She was given IV Lasix today and is diuresing but continues to weep fluid from her extremities as per nursing. Review of Systems Review of Systems: All systems reviewed & are unremarkable except as noted in HPI & below Physical Exam Constitutional: cooperative and + edematous; no acute distress, + not healthy appearing and not lethargic Eyes: + eyelid abnormality (right periorbital ecchymosis) and + anicteric sclerae ENMT: Nose: + external nose abnormality (NGT in place) Neck: trachea midline, no thyromegaly + abnormal visual inspection (Left IJ central venous catheter present) Respiratory: normal respiratory effort; no respiratory distress Auscultation: + diminished lung sounds (At the bases bilaterally); no crackles, no rhonchi and no wheezes Cardiovascular: Rate/Rhythm: regular rate and regular rhythm Heart Sounds: no murmur Extremities: + edema (3+ pitting edema in all extremities) and + vascular access device (Right upper extremity PICC line) Chest (Breasts): Chest: normal inspection of chest Gastrointestinal (Abdomen): normal bowel sounds, soft, nontender, no hepatosplenomegaly Inspection/Auscultation: normal bowel sounds; abdomen not distended Percussion/Palpation: + abdomen tender (Across lower abdomen, minimal, improved) and abdomen soft; no guarding and abdomen not rigid Musculoskeletal: Extremities: no cyanosis and no clubbing Skin: no rashes, warm and dry Neurologic: + focal motor deficit (Right-sided hemiparesis) and awake; not confused Speech / Cognition: + expressive aphasia; normal cognition Psychiatric: Orientation: alert and cooperative Affect: + depressed affect Mood: + depressed mood Genitourinary: Plata catheter in place draining clear yellow urine Results & Data Results & Data ([facility]) Vital Signs (Past 12 Hours) Vital Signs Temp Pulse Resp Pulse Ox 11/25/19 18:30 95 H 17 98 11/25/19 18:15 105 H 21 97 11/25/19 18:00 86 11 L 100 11/25/19 17:45 89 16 100 11/25/19 17:30 89 21 98 11/25/19 17:15 87 18 90 11/25/19 17:00 36.9 C 84 13 100 11/25/19 16:45 83 16 99 11/25/19 16:30 85 13 98 11/25/19 16:15 89 14 100 11/25/19 16:00 86 15 100 11/25/19 15:30 86 15 100 11/25/19 15:00 88 13 100 11/25/19 14:30 85 13 98 11/25/19 14:00 36.9 C 82 13 98 11/25/19 13:30 81 15 98 11/25/19 13:00 84 13 97 11/25/19 12:30 92 H 17 99 11/25/19 12:00 36.7 C 94 H 19 98 11/25/19 11:30 95 H 19 95 11/25/19 11:00 93 H 16 98 11/25/19 10:30 89 14 98 11/25/19 10:15 96 H 16 97 11/25/19 10:00 36.9 C 89 16 98 11/25/19 09:45 96 H 14 97 11/25/19 09:30 89 13 97 11/25/19 09:15 93 H 13 96 11/25/19 09:00 91 H 14 97 11/25/19 08:45 94 H 15 98 11/25/19 08:30 94 H 16 97 11/25/19 08:15 95 H 15 97 11/25/19 08:00 91 H 16 97 11/25/19 07:45 98 H 17 97 11/25/19 07:30 94 H 17 98 Laboratory Results Laboratory values reviewed PG Care Time/CCT Total # of Minutes Spent Total Time Spent with Patient: Total time spent is greater than 50% in coordination of care (as documented) at patient's floor/unit and/or counseling patient: Coding Level of Care Code 10341 Subseq Hosp Care Lvl 3 Diagnoses Hypotension I95.9 Sepsis A41.9 UTI (urinary tract infection) N30.00 Hematuria presence: without hematuria Urinary tract infection type: acute cystitis Thrombocytopenia D69.6 Pleural effusion J90 Abdominal pain R10.9 Nausea & vomiting R11.2 Retroperitoneal bleed R58 Pulmonary embolism I26.99 Anasarca R60.1 Acute blood loss anemia D62 Deep vein thrombosis (DVT) of popliteal vein of left lower extremity I82.432 S/P insertion of IVC (inferior vena caval) filter Z95.828 Hemiplegia and hemiparesis following cerebral infarction affecting right dominant side I69.351 Protein calorie malnutrition E46 Coagulopathy D68.9 Hyperbilirubinemia E80.6 GERD (gastroesophageal reflux disease) K21.9 Major depressive disorder F32.9 Dysphagia R13.10 Atrial tachycardia I47.1 Hypoglycemia E16.2 History of cerebrovascular accident Z86.73 Sinus tachycardia R00.0 DVT prophylaxis Z29.9 (1) UTI (urinary tract infection) Hematuria presence: without hematuria Urinary tract infection type: acute cystitis Qualified Code(s): N30.00 - Acute cystitis without hematuria
[2019-11-25] MEDS ORDERED: LORazepam 2 MG/4 ML VIAL ONE (20:39)
[2019-11-25] MEDS ORDERED: LORazepam 2 MG/4 ML VIAL IV STA (20:44)
[2019-11-25] MEDS: CARBOHYDRATES FOR HYPOGLYCEMIA PO PRN (21:45)
[2019-11-25] MEDS: MIRTAZAPINE TAB 15 MG TAB NG SCH (21:52)
[2019-11-25] MEDS: ATORVASTATIN 40 MG TAB NG SCH (21:52)
[2019-11-25] MEDS: MAGNESIUM OXIDE 400 MG TAB PO SCH (21:53)
[2019-11-25] MEDS: POTASSIUM CHLORIDE 20 MEQ/15 ML UDC PO SCH (22:14)
[2019-11-25 23:49] LABS: BUN Creatinine Ratio 12.5 (10-20); Calcium 6.9 mg/dl (8.5-10.1); Creatinine Clr Calc Pharmacy 97.4 ml/min; Est GFR (African American) 112.4; Magnesium 2.2 mg/dl (1.8-2.4); Phosphorus 4.4 mg/dl (2.5-4.9); Potassium 4.1 mmol/L (3.5-5.1)
[2019-11-26] MEDS: MENTHOL-ZINC OXIDE 360 APPLN/120 GM TUBE EXT PRN ×3 (00:31→16:49)
[2019-11-26] MEDS: LOPERAMIDE LIQUID 120 ML BOTTLE PO PRN ×4 (00:31→20:21)
[2019-11-26 04:57] LABS: Mean Corpuscular Hgb Conc 33.3 g/dL (32-36)
[2019-11-26 05:02] LABS: Hematocrit (blood only) 30.6 % (37-47); Hemoglobin 10.2 g/dL (12.0-16.0); Mean Corpuscular Hemoglobin 30.4 pg (25-34); Mean Corpuscular Volume 91.1 fL (80-100); RDW Coefficient of Variation 17.8 % (11.5-14.5); RDW Standard Deviation 58.7 fL (36.4-46.3); Red Blood Count 3.36 M/uL (4.2-5.4); White Blood Count 14.62 K/uL (4.8-10.8)
[2019-11-26 05:03] LABS: Platelet Count 64 K/uL (130-400)
[2019-11-26 05:32] LABS: Basophils # (auto) 0.01 K/uL (0-0.2); Basophils % (auto) 0.1 %; Echinocytes 1+; Eosinophils # (auto) 0.19 K/uL (0-0.5); Eosinophils % (auto) 1.3 %; Immature Granulocytes # (auto) 0.08 K/uL (0.00-0.02); Immature Granulocytes % (auto) 0.5 %; Lymphocytes # (auto) 0.35 K/uL (1.2-3.4); Lymphocytes % (auto) 2.4 %; Monocytes # (auto) 0.29 K/uL (0.11-0.59); Neutrophils % (auto) 93.7 %
[2019-11-26 05:57] LABS: BUN Creatinine Ratio 12.9 (10-20); Calcium 7.3 mg/dl (8.5-10.1); Creatinine Clr Calc Pharmacy 109.6 ml/min; Est GFR (African American) 119.7; Est GFR (Non-African American) 103.3; Magnesium 2.2 mg/dl (1.8-2.4); Phosphorus 4.2 mg/dl (2.5-4.9); Potassium 3.4 mmol/L (3.5-5.1)
[2019-11-26] MEDS: POTASSIUM CHLORIDE / WTR 20 MEQ/100 ML PLCT IV SCH ×2 (06:36→08:24)
--- NOTE | 2019-11-26 07:19 | CT Scan Report ---
CT head/brain wo con CLINICAL HISTORY: new onset seizure COMPARISON STUDY: 11/12/2019 TECHNIQUE: Axial CT of the brain is performed from the vertex to the skull base. IV contrast was not administered for this examination. A dose lowering technique was utilized adhering to the principles of ALARA. CT DOSE: 729.78 mGycm FINDINGS: No intra or extra-axial mass lesions are visualized. There is no CT evidence of acute cortical infarc tion. There is no evidence of midline shift. There is no acute hemorrhage. No calvarial fractures ar e visualized. There is an old extensive left MCA distribution infarct. There is an old right frontal lobe infarct. There is compensatory dilatation of the left lateral ventricle. There is no significant hydrocephalus There is no evidence of acute sinusitis IMPRESSION: 1. No significant change from the prior study. Old left MCA distribution infarct an old right frontal lobe infarct 2. No acute intracranial findings ACT 112: Negative or not required by law. Electronically signed by: Elfego Conn M.D. 11/26/2019 7:18 AM
[2019-11-26] MEDS: FLUOXETINE HCL 20 MG/5 ML UDP NG SCH (08:23)
[2019-11-26] MEDS: THIAMINE HCL 100 MG TAB NG SCH ×2 (08:23→20:22)
[2019-11-26] MEDS: MULTI VIT W/MINERALS LIQUID 15 ML UDP NG SCH (08:23)
[2019-11-26] MEDS: MAGNESIUM OXIDE 400 MG TAB PO SCH ×2 (08:23→20:23)
[2019-11-26] MEDS: MIDODRINE HCL 2.5 MG TAB PO SCH ×3 (08:23→16:49)
[2019-11-26] MEDS: POTASSIUM CHLORIDE 20 MEQ/15 ML UDC PO SCH ×2 (08:23→20:21)
[2019-11-26] MEDS: CEFTOLOZANE/TAZOBACTAM 1,500 MG in DEXTROSE 5% 100 ML IV SCH ×2 (08:57→16:50)
[2019-11-26] MEDS ORDERED: levETIRAcetam 500 MG in 0.9 % SODIUM CHLORIDE 100 ML IV SCH (09:00)
--- NOTE | 2019-11-26 10:02 | Critical Care Progress Note ---
Date of Service November 26, 2019 Assessment & Plan (1) Hypotension: 49-year-old female with past medical history of large left MCA and small right MCA stroke with cerebral edema and subsequent hemorrhagic conversion May 2019, she was initially in the ICU and downgraded yesterday which is 11/19/2019 for persistent tachycardia and undifferentiated shock and retroperitoneal hematoma which was found on CT 11/15/2019. Patient also has history of pulmonary embolism diagnosed 828 with left popliteal DVT Patient had received total 5 units PRBC and 4 units of FFP. IVC filter was barry warren 11/15/[address] Covarrubias Patient was downgraded on 11/19/2019 on midodrine 5 mg 3 times daily. She was started on metoprolol 12.5 mg twice daily as well. 11/20/2019 is when ICU was recalled given the patient was again hypotensive. Patient was awake alert oriented. Not in any acute distress. 11/21/2019: During the ICU stay patient was hemodynamically stable and subsequently downgraded later in the evening. 11/22/2019: Early in the morning patient was found to be hypotensive systolic blood pressure in the 55, lethargic and complaining of dizziness. This is the first time the patient has complained of dizziness with low blood pressure. H&H repeat was 7.1 which had gone down from 8.8. --Septic shock Urine culture growing gram-negative bacilli --> E. coli ESBL With elevated procalcitonin and lactic acidosis. Patient has hx of low BP but never had lactic acidosis before Fever could be from retroperitoneal bleed itself. Retroperitoneal bleed has been found to cause fever Right lower extremity DVT which can also cause fever Continue with antibiotics Procalcitonin > 200 --> 84 Patient has significant bilateral pleural effusions at the time of admission most likely because of her underlying albumin. I do not think that they are the cause of sepsis. --New onset seizure lens blocker 11/26/2019 Patient's electrolytes were within normal limit CT head did not show any significant change compared to before Patient was started on ertapenem for ESBL I think this likely the cause of it. Will change to ceftalozone --Bilateral pleural effusion Likely from her low albumin Status post right-sided thoracentesis 11/23/2019 showing hemorrhagic fluid but as per lights criteria it is transudative. Patient did not have hematocrit sign upon bedside ultrasound and there has been no hematocrit sign appreciated on multiple CT abdomen pelvis done on the lower part of the pleural effusion. I do not think this is hemothorax. This is most likely slow oozing from underlying chronic effusions that she has. Unfortunately we are not able to do hematocrit here. --Retroperitoneal bleed Initially noted on CT 11/15/2019 with increased in size on 11/20/19. Repeat CT 11/22/19 showed stability of the retroperitoneal bled with drop in Hb Surgery has been on board did not think she will be a surgical candidate given the significant low albumin If the hemoglobin keeps on dropping the next best step would be to have IR to embolize the vessel which might be using. Patient got 2 more units of PRBC 11/22/2019 --Refeeding syndrome Patient was started on NGT feeding to increase her nutritional status but developed significant electrolyte abnormality This is most likely from refeeding syndrome. Would like to have potassium greater than 4, phosphorus greater than 3, magnesium greater than 2 for at least 24-48 hours before starting full feedings. Currently continue with D5 to keep blood sugar between 100-140. --Hyperbilirubinemia Has started to trend down as of 11/24/2019 It could be from amiodarone that the patient is getting Given that the AST, ALT and alk phos are within normal that I do not think this is secondary to hypertension or gallbladder issues. --Acute PE with left popliteal DVT and non occlusive Right common femoral DVT Contraindication to anticoagulation given retroperitoneal bleed as well as history of hemorrhagic conversion of MCA Status post IVC filter placement 11/15/2019 Currently off anticoagulation --Anasarca with bilateral pleural effusion Likely secondary to protein calorie malnutrition with albumin of 1 Continue with nutrition Echo showed EF 55-60% with mild LVH and small pericardial effusion, right ventricular size and function were normal. --History of CVA Large MCA 06/02/2019 --Thrombocytopenia New in onset after coming to ICU on 11/22/2019 Patient had normal fibrinogen as well as haptoglobin and factor VIII on 11/22/2019 which rules out DIC. Seems to be sepsis induced Continue to monitor. --Prophylaxis VTE: Contraindicated because of active bleed GI: Pantoprazole Lines: Right arm picc, left IJ, left radial arterial, NGT, Plata Diet: Tube feeds trophic Plan: In/out: -1 L, urine output [id number] This is a first-time patient has been negative balance. Continue with diuretics after giving 25% albumin twice daily. New onset seizures likely from ertapenem. Continue with Keppra for the time being. Follow-up with neurology recommendations. Ertapenem discontinued. Ceftolozane/tazobactam started for ESBL. Continue with replacing electrolytes keep potassium around 4, phosphorus greater than 3, magnesium greater than 2. Continue with trophic feeds Overall prognosis of the patient is guarded. Need to get ethics committee involved to see what will be a goals of care going forward from here. I have personally spent 33 minutes of critical care time in the direct man agement of this patient. This is a life/limb threatening event. This includes time spent evaluating patient, direct bedside care, chart review, placing orders, interpretation of diagnostic studies, discussion with consultants, patient, and family members, as well as other required patient management activities. This time is exclusive of all separately billable procedures, and teaching time and separate from and in addition to any other critical care service time. Please note the above document was generated using voice recognition software. It may contain grammatical, syntax or spelling errors. (2) Deep vein thrombosis (DVT) of popliteal vein of left lower extremity: (3) Hemiplegia and hemiparesis following cerebral infarction affecting right dominant side: Admission and Anticipated Discharge Date Admission Date: November 11, 2019 Subjective Patient seen and examined at bedside. No acute distress. Overnight patient had 1 episode of tonic-clonic seizure. She got 2 mg of Ativan around 3:30 AM At the time of examination patient was still somnolent from that likely. Pupils were dilated but reactive to light. Afebrile. Patient is making good amount of urine. Review of Systems Review of Systems: All systems reviewed & are unremarkable except as noted in Subjective Physical Exam Physical Exam: Constitutional: No acute distress HEENT: PERRLA, right periorbital bruise Respiratory system: Decreased air entry bilaterally, no wheeze, no rhonchi, minimal crackles bilateral lower lobes CVS: S1-S2 positive, no murmurs or gallops Abdomen: Soft, right lower quadrant tenderness, no rebound, positive bowel sounds x4 Extremities: +1 pulses bilaterally radialis/dorsalis pedis, no cyanosis, +3 pitting edema bilateral lower extremity as well as right upper extremity. Anasarca Left upper extremity strength 5 out of 5, left lower extremity strength 4 out of 5, right upper extremity and right lower extremity strength 2 out of 5 Purplish hue of bilateral foot has resolved Neuro: Somnolent, positive corneal, positive pupillary Psych: Unable to assess today G/U: Positive Plata changed 11/23/2019 Skin: no rashes, warm and dry Lymphatic: + lymphedema Results & Data Results & Data ([facility]) Vital Signs (Past 12 Hours) Vital Signs Temp Pulse Resp Pulse Ox 11/26/19 06:00 90 12 99 11/26/19 05:00 82 9 L 98 11/26/19 04:00 80 11 L 98 11/26/19 03:00 80 14 98 11/26/19 02:00 81 12 98 11/26/19 01:07 85 11/26/19 01:00 85 12 98 11/26/19 00:00 36.8 C 86 13 97 11/25/19 22:30 88 13 97 11/26/19 04:35 11/26/19 04:35 Coding Level of Care Code Critical Care 1st 30-74 mins Diagnoses Hypotension I95.9 Deep vein thrombosis (DVT) of popliteal vein of left lower extremity I82.432 Hemiplegia and hemiparesis following cerebral infarction affecting right dominant side I69.351 Time Spent (min) 33
[2019-11-26] MEDS: POT PHOSPHATE MONOBASIC W/ SOD TAB NG SCH ×2 (10:16→20:32)
[2019-11-26] MEDS: FUROSEMIDE 40 MG in SYRINGE 0 ML IV SCH ×2 (10:16→21:44)
--- NOTE | 2019-11-26 10:54 | Neurology Progress Note ---
Date of Service November 26, 2019 Assessment & Plan (1) New onset seizure: (2) History of cerebrovascular accident: (3) Pulmonary embolism: (4) Hypoalbuminemia due to protein-calorie malnutrition: This patient has a background of a large left middle cerebral artery stroke in May of 2019 ( as well as a small right posterior frontal stroke at the same time) resulting in severe expressive greater than receptive aphasia, severe right freddy paresis and right freddy sensory deficits. She has been stable with her neurologic deficits throughout this hospitalization, complicated by DVT, pulmonary emboli, hypoalbuminemia with protein calorie malnutrition and anasarca, E coli UTI leading to sepsis and thrombocytopenia. Last evening she had new onset of a seizure with seem generalized (although a focal component could have been missed by the time the nurse came into the room). Certainly, she has a number of reasons to explain seizures especially in lieu of her previous stroke. Antidepressant such as fluoxetine and mirtazapine can lower seizure threshold but she has been on these since May. Ertapenum is associated with seizures particularly in elderly patients with J[employer]IOR [employer]IMATOR injury. the patient has had no seizures since her initial event last night. Her neurologic examination is difficult, as I believe she is somewhat obtunded by the [address] scan of the head did not show any acute changes. Recommendations: 1. discontinue Keppra as this would not be a good anticonvulsant for someone with the depression and other mood issues she has. 2. she is off ertapenum 3. keep fluoxetine and mirtazapine for now. 4. hold on additional neurologic testing or anticonvulsants at this time. Should she have an additional seizure, then I would give her 1 gram of valproic acid IV followed by 250 milligrams IV Q 8 hours (checking daily a.m. levels ). Again, if she has another seizure we could consider repeat MRI and/or EEG. Overall, I spent a total of 110 minutes with this case including review of records, review of CT films, direct evaluation the patient at bedside, and discussing the case with RN at bedside, Dr. Cramer, and Dr. Calles, including differential diagnosis and treatment options. Admission and Anticipated Discharge Date Admission Date: November 11, 2019 Subjective Patient has suffered a large left middle cerebral artery stroke on June 09, 2019. at that time CT angiography showed occluded left middle cerebral artery with edema and some midline shift left to right. She was transferred to . MRI of the brain showed a large left middle cerebral artery stroke with secondary hemorrhagic conversion in the left basal ganglia. She also had a small right posterior frontal stroke noted. an echocardiogram showed no shunt she did have thrombocytosis and anemia. He was uncertain whether not the strokes or embolic verses thrombotic from hypotension. She was left with a dense expressive some receptive aphasia as well as right freddy paresis and right freddy sensory deficits. She was discharged on 81 milligram aspirin tablet daily as well as atorvastatin 40 milligrams a day and fluoxetine 20 milligrams a day. Patient was admitted November 10 with left lower extremity DVT resulting in multiple pulmonary emboli. She had right femoral vein pulmonary emboli as well. She is not an anticoagulant candidate so she was treated with IVC filter. She had a spontaneous retroperitoneal hemorrhage this hospitalization and has significant nutritional issues with hypoalbuminemia and anasarca. She had an E coli UTI with sepsis last week. Hypotension has been a significant problem for this patient and she has thrombocytopenia. She has been taken off aspirin. Patient initiated ertapenem on November 23. Her last dose was in the evening November 24. During the day November 24, she was as awake and alert as she has been this hospitalization. In the evening of November 24, around 1999 she was doing well. Nursing noted decreased responsiveness, head turning to the left, and jerking of all extremities lasting up to several minutes around 2034. she was given 2 milligrams of lorazepam intravenously , as well as 2 grams levetiracetam intravenously. She was then put on 500 milligrams levetiracetam every 12 hours. She has had no further seizures . A CT scan of the head showed no acute changes. Today, CBC shows anemia and white count of 14.6. Chem profile shows potassium of 3.4. Calcium was slightly low at 7.3 and phosphorus and magnesium were unremarkable. The patient is very sleepy from the Ativan and cannot give a history. Review of Systems Review of Systems: Unobtainable due to reduced consciousness Results & Data ([facility]) Vital Signs (Past 12 Hours) Vital Signs Temp Pulse Resp Pulse Ox 11/26/19 08:00 90 11/26/19 06:00 90 12 99 11/26/19 05:00 82 9 L 98 11/26/19 04:00 80 11 L 98 11/26/19 03:00 80 14 98 11/26/19 02:00 81 12 98 11/26/19 01:07 85 11/26/19 01:00 85 12 98 11/26/19 00:00 36.8 C 86 13 97 Exam (Neuro) Physical Exam: She is in bed with her eyes closed breathing regularly at a respiratory rate of about 14. she has little spontaneous movement. Her head is turned half way to the right. Pulse is regular in the 80s and blood pressure recently was 160/83. With voice she will open her eyes some but with stimulation ( shout and deep pain) she will not really alert more and drifts back to sleep easily. She has moaning and some withdrawal in all 4 limbs. She has increased tone and spasticity in the right arm and leg with decreased tone in the left arm and leg. Eyes are midline and she can track some to the right and fully to the left. She has positive corneal reflexes and has no facial asymmetry. She clenches her jaw shot and will not open her mouth. Reflexes are 2/4 on the right with a couple of beats of clonus in the right ankle and 1/4 on the left. Toes are neutral To plantar stimulation on the right and downgoing on the Left. PG Care Time/CCT Total # of Minutes Spent Total Time Spent with Patient: Total time spent is greater than 50% in coordination of care (as documented) at patient's floor/unit and/or counseling patient: Coding Level of Care Code 36350 Subseq Hosp Care Lvl 3 Diagnoses New onset seizure R56.9 History of cerebrovascular accident Z86.73 Pulmonary embolism I26.99 Hypoalbuminemia due to protein-calorie malnutrition E88.09; E46 Time Spent (min) 110 Comment Add [id number] and [id number] to the [id number]
[2019-11-26] MEDS: PANTOprazole 40 MG in SYRINGE 0 ML IV SCH (11:59)
[2019-11-26] MEDS: ACETAMINOPHEN 325 MG TAB PO PRN ×2 (11:59→16:50)
[2019-11-26 15:04] LABS: BUN Creatinine Ratio 12.7 (10-20); Calcium 7.1 mg/dl (8.5-10.1); Creatinine Clr Calc Pharmacy 107.9 ml/min; Est GFR (African American) 119.1; Est GFR (Non-African American) 102.8
[2019-11-26] MEDS: PROSOURCE NO CARB 30 ML/PKT NG SCH (16:49)
[2019-11-26] MEDS: MIRTAZAPINE TAB 15 MG TAB NG SCH (20:22)
[2019-11-26] MEDS: ATORVASTATIN 40 MG TAB NG SCH (20:22)
--- NOTE | 2019-11-26 20:40 | Hospitalist Progress Note ---
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 She has gone on to have a prolonged hospital stay due to a spontaneous retroperitoneal hemorrhage,ongoing hypotension, and now Plata catheter associated UTI and sepsis with septic shock. Her course has also been complicated by profound protein calorie malnutrition and hypoalbuminemia with anasarca. And now with new onset seizure on 11/24. Hypotension continues to remain an ongoing issue but is improving; was on vasopressors from 11/20, but weaned off on 11/24. Blood pressures remain soft. Historically on 11/10, she seemed to have acute change in her BP from 100/70 to 70/60. However, she continued to mentate well, lactate was normal, and no other evidence of end-organ damage. CT a/p showed no RP bleed (at that time) and stat echo showed good EF, no effusion, no right-heart strain. At that time, pulm/cc doctor did NOT feel her BP represented shock and declined ICU transfer. With small fluid boluses, she eventually maintained a BP ~90/60 and did ok. Blood pressure on 11/19 back consistently in the 70s-80s systolic with slight drop in hemoglobin and increase in retroperitoneal bleed since 5 days prior Severe hypoalbuminemia is contributing as well as anemia and bleeding On 11/20, spiked fever and then had hypotension secondary to sepsis with UTI alt dori fever from RP bleed cannot be ruled out. Blood pressures again dropped to the 50s systolic and she had a central line placed and was started on Levophed and vasopressin Lactate is elevated secondary to hypoperfusion. Arterial line was placed on 11/20. Mentation was then improved since 11/21, weaned off vasopressin and now off Levophed Transfused 2 units PRBCs on 11/21 Continues now on twice daily IV albumin with Lasix -Continue midodrine to 7.5 mg per NG tube 3 times daily and wean off as able to -Treating for sepsis with antibiotics as below -Ultimately, needs improved nutrition to improve albumin which has been limited by refeeding syndrome-this was reiterated today with the patient and her friend at the bedside who will encourage her to eat (2) Sepsis: With septic shock and lactic acidosis as above Spiked fever on the evening of 11/20. Chest x-ray with large bilateral pleural effusions although critical care does not think this is infected. Now status post thoracentesis on 11/22-culture no growth to date. Negative for C. difficile despite diarrhea Urinalysis consistent with UTI, with Plata catheter in place for extended period of time-exchanged Plata catheter on 11/22 Urine culture growing ESBL E. coli Could also be fever from retroperitoneal hemorrhage; could also have seeded infection in the RP bleed Leukocytosis is now improving, procalcitonin is down to 88 from greater than 200 -Was on Zosyn, then changed to ertapenem as per tumblers supervisor presumably for less volume and once daily dosing/ease of administration-however, ertapenem now felt to have caused seizure 11/24-changed to ceftolozane/tazobactam -Would finish out 14-day course of antibiotics-end date would be 12/04 -Follow blood cultures-no growth to date (3) New onset seizure: Had a generalized tonic-clonic seizure on the evening of 11/24, was given IV Ativan and has been obtunded since that time but maintaining airway -Initially was loaded with Keppra, but due to severe depression, we will not continue on Keppra as per neurology recommendations -Continue to observe, no EEG needed She has history of large left MCA territory stroke and small right frontal stroke in the past, therefore putting her at risk for seizure. Ertapenem was also felt to be contributing potentially and was discontinued -If has recurrent seizure, neurology recommends loading with Depakote (4) UTI (urinary tract infection): Patient had an E. coli UTI documented on 11/05. She had 3 days of cefdinir prior to admission. (Started on 11/05). -She had finished ceftriaxone x 3 days here early in the course As above, now with repeat UA on 11/21 is positive for recurrent infection-she has had Plata catheter in place throughout the admission-therefore this is a Plata catheter associated UTI Urine culture as above with ESBL E. coli -Continue antibiotics as above (5) Thrombocytopenia: Platelets improved to 64, fibrin degradation products are elevated, INR is elevated, fibrinogen is normal, factor VIII activity is normal/high, DIC is ruled out Likely secondary to sepsis No evidence of further bleeding at this time, hemoglobin is labile but stable overall Follow CBC (6) Pleural effusion: With large bilateral pleural effusions Now status post thoracentesis with 600 mLs removed from the left side on 11/22- bloody pleural fluid, pH 7.43, protein and LDH consistent with transudative process, amylase 14. Gram stain without organisms, culture pending, cytology negative Follow cultures, AFB on pleural fluid HIV negative, hepatitis C negative Likely a result of low oncotic pressure from hypoalbuminemia plus also could have some, fluid coming from the retroperitoneal space which would account for the high RBCs in the setting of retroperitoneal bleeding (7) Abdominal pain: With worsening lower abdominal pain on the morning of 11/19 with nausea and vomiting. Repeat CT scan of the abdomen/pelvis showed significant increase in right-sided retroperitoneal hemorrhage compared to previous as well as increased right-sided intramuscular hemorrhage in the iliopsoas and iliacus No other cause found for nausea on CT scan-no obstruction or evidence of infection. -Discussed case with tumblers supervisor at [facility] on 11/19 who said no indication for IR unless hemoglobin was dropping Hemoglobin did drop to 7.1 on 11/21, but could be from receiving IV albumin bolus and hemodilution especially given that repeat CT of the abdomen/pelvis on 11/21 shows no increase in size of bleed. She was transfused 2 more units PRBCs on 11/21 Hemoglobin remains overall stable at 10 Abdominal pain is now resolved C. difficile is negative (8) Nausea & vomiting: Possibly secondary to abdominal pain and worsening retroperitoneal bleed- now resolved but has low appetite, refuses to eat by mouth Zofran as needed Has NG tube in place Now resolved (9) Retroperitoneal bleed: Noted on CT a/p on 11/14. - Required 5 units PRBCs, 4 FFP, and 1 cryo all on 11/14 & 11/15. - IVC filter placed on 11/[address] Covarrubias due to DVT/PE and inability to anticoagulate. With worsening of RP and pelvic intramuscular bleed as above on CT scan on 11/[address] scan on 11/21 stable from 11/19 Then with hemoglobin down to 7.1 on 11/21-transfused another 2 units on 11/21 of PRBCs Hemoglobin now up and stable at 10 -Continue holding aspirin due to thrombocytopenia -Follow CBC (10) Pulmonary embolism: Was originally admitted for sinus tachycardia and found to have DVT and bilateral PEs CTA chest on 11/09 shows bilateral pulmonary emboli. Doppler on 11/09 showed left popliteal DVT. - Heparin gtt started on admission; held temporarily due to concern for life- threatening bleed, then restarted the morning of 11/10. - Stopped for good on 11/14 with RP bleed - Now with IVC filter in place CT abdomen/pelvis on 11/21 shows suspected right common femoral vein DVT. Lower extremity venous Doppler on 11/21 confirms DVT now in the right common femoral vein Will never be a good candidate for anticoagulation (11) Anasarca: Secondary to profound hypoalbuminemia from very poor nutrition. Patient's mother reports that she has not been eating much for over a year even prior to her stroke. Suspect that depression plays a role in this especially in the setting of significant stroke-patient confirms and agrees with this assessment -IV albumin has been given on multiple occasions, then received IV albumin and Lasix together and attempt to diurese as per tumblers supervisor Continue with IV albumin and Lasix today twice daily, is diuresing pretty well and edema finally seems improved on 11/25 Tube feeds were started on 11/20 but then on hold due to hypotension, refeeding syndrome, and on vasopressors Tube feeds were restarted again on 11/22 and again had severe electrolyte abnormalities on 11/23 Tube feeds restarted at trophic rate on 11/24 and continue Patient is indeed able to eat by mouth and has no trouble with swallowing, but chooses to eat minimally. Follow I's and O's, daily weights (12) Acute blood loss anemia: Hemoglobin dropped due to retroperitoneal bleed as above As above, transfused again for hemoglobin 7.1 on 11/21, hemoglobin now up to 10 as above -Follow CBC (13) Deep vein thrombosis (DVT) of popliteal vein of left lower extremity: Left, secondary to hypoproteinemia, massive anasarca Also now with new DVT on 11/21 and right common femoral vein -No anticoagulation as above secondary to severe retroperitoneal bleed Now with IVC filter in place (14) S/P insertion of IVC (inferior vena caval) filter: As above (15) Hemiplegia and hemiparesis following cerebral infarction affecting right dominant side: As above, secondary to large left MCA stroke and small right MCA stroke with asymptomatic hemorrhagic conversion as per notes from [facility] Bedbound, total care Continue statin but placed aspirin on hold due to thrombocytopenia-now that platelets are greater than 50,000, consider restarting aspirin (16) Protein calorie malnutrition: With severe protein calorie malnutrition Albumin severely low at 1.1 with anasarca, intermittent hypoglycemia, and starvation ketoacidosis Started tube feeds on 11/20 through NG tube and again a trial on 11/22 which resulted in refeeding syndrome and severe electrolyte abnormalities each time She is able to swallow as per speech evaluation, but perhaps major depressive disorder is contributing -She does not want a PEG tube ever Reminded her that NG tube is temporary -Continue Remeron and consider increasing to 30 mg for appetite stimulation and to treat depression-discussed with patient but will hold off on doing this for now as it can cause excessive sedation and may affect mental status -Consider psychiatry consultation Continue to replace electrolytes including phosphorus, potassium, magnesium, calcium (17) Coagulopathy: INR remains elevated at 1.6 despite several days in a row of receiving IV vitamin K. Likely a nutritional deficiency of vitamin K, but also with some possible hepatic congestion contributing to coagulopathy Was given IV vitamin K on 11/19 and again on 11/20, 11/21 Tube feeds restarted on 11/24 (18) Hyperbilirubinemia: Bilirubin peaked at 2.7, direct bilirubin elevated at 1.3, now both trending downward Other LFTs negative/normal Reticulocyte count elevated but would be appropriate for acute bleed Could be from amiodarone-tumblers supervisor has held this for now Could also be hypoperfusion of the liver from hypotension Follow LFTs in the morning (19) GERD (gastroesophageal reflux disease): - Continue pantoprazole through the IV (20) Major depressive disorder: With depressed affect, minimal p.o. intake - Continue fluoxetine, mirtazapine -Consider increasing mirtazapine as above although this can lower the seizure threshold Consider psychiatry consult as above (21) Dysphagia: Due to prior stroke. - Aspiration precautions were undertaken - AWAKE OVERNIGHT MONITOR consulted - Appreciate recs; no major concerns. Thinks she may need psychiatric consultation * Alternate solids and liquids * Alert and upright for meals * Meds in a carrier (applesauce/pudding) * Single bites/small sips (22) Atrial tachycardia: As above, paroxysmal atrial tachycardia. Tachycardia has now been resolved for many days Have since discontinued amiodarone due to elevated LFTs Continue to monitor on telemetry (23) Hypoglycemia: With hypoglycemia on 11/20 and some on 11/21 and on the evening of 11/23, very poor p.o. intake -Tube feeds were started as above and now improved -Continue Accu-Cheks every 4 hours, glucagon and D50 protocol as needed (24) History of cerebrovascular accident: History of large left MCA stroke and smaller right MCA distribution stroke in 05/2019, treated at [facility]. Had hemorrhagic conversion of the stroke. Thought to be thrombotic possibly due to reactive thrombocytosis to severe anemia. Hypercoagulable work-up was largely negative except for mildly positive TRE She has a loop recorder which is only showing paroxysmal atrial tachycardia but no atrial fibrillation or flutter -TRE was mildly positive at that time and is now negative -Now with generalized seizure as above -Now holding ASA due to thrombocytopenia-consider restarting again now that platelets are greater than 50,000 as above -Continue statin - Neurology consulted - Appreciate consult (25) Sinus tachycardia: Patient has a known history of paroxysmal atrial tachycardia. Implanted loop recorder put in at [place] during admission for CVA. - HR at [facility] was reportedly as high as 150, again possibly due to hypovolemia and PE as well as atrial tachycardia. - Cardiology consulted -> Appreciate recs With some tachycardia with profound hypotension, now improved - Started amiodarone 200 mg PO BID on 11/15; metoprolol 12.5 mg PO BID on 11/16. Midodrine started on 11/17 for continued low blood pressure. -Now with hypotension, continue to hold metoprolol -Amiodarone on hold now due to elevated bilirubin and does not need to be restarted (26) DVT prophylaxis: None due to existing DVTs bilaterally and extremely delicate skin with anasarca as well as acute bleed Disposition-continued stay in the ICU, prognosis quite guarded Discussed her condition with the patient's permission with her mother, Rosalind, at phone number [phone] on 11/21. Rosalind states that she will come to try to visit she has not seen her daughter except for one brief visit through a window at the rehab several months ago. She did not understand that her daughter was total care and had right-sided hemiplegia as she was asking questions such as when can the patient come home and will she be able to drive a car again. I feel that she will better understand the patient's poor prognosis when she sees her in person. Patient is a full code Letter Carrier would like to discuss her case with the ethics committee given that she is refusing to eat and refusing PEG tube, get once full escalation of care and is a full code as these are not congruent with each other. Apparently patient has declined palliative consultation in the past. Admission and Anticipated Discharge Date Admission Date: November 11, 2019 Subjective Patient had a generalized tonic-clonic seizure that lasted about 3 minutes last evening as per nursing report. She was given 2 mg of IV Ativan has been obtunded ever since. She would not wake up for me with loud verbal and with tactile stimuli. She did groan a little bit. Blood pressures remain soft but off Levophed now for 24 hours, arterial line in place and registering systolics as high as 90. She was loaded with Keppra but after my discussion with neurology this morning, given her severe depression, decided to discontinue Keppra. I also discussed the case with the tumblers supervisor who feels that perhaps the ertapenem caused the seizure. She also has a history of bilateral strokes and is at high risk for seizure. She is continuing to diurese today and her edema is significantly improved. Review of Systems Review of Systems: Unobtainable due to cognitive status and Unobtainable due to reduced consciousness Physical Exam Constitutional: + edematous; no acute distress and + not healthy appearing Eyes: + eyelid abnormality (right periorbital ecchymosis) and + anicteric sclerae ENMT: external ear and nose normal, oropharynx normal Nose: + external nose abnormality (NGT in place) Neck: trachea midline, no thyromegaly + abnormal visual inspection (Left IJ central venous catheter present) Respiratory: normal respiratory effort; no respiratory distress Au scultation: + diminished lung sounds (At the bases bilaterally); no crackles, no rhonchi and no wheezes Cardiovascular: Rate/Rhythm: regular rate and regular rhythm Heart Sounds: no murmur Extremities: + edema (2+ pitting edema in all extremities significantly improved from yesterday) and + vascular access device (Right upper extremity PICC line) Chest (Breasts): Chest: normal inspection of chest Gastrointestinal (Abdomen): normal bowel sounds, soft, nontender, no hepatosplenomegaly Musculoskeletal: Extremities: no cyanosis and no clubbing Skin: no rashes, warm and dry Neurologic: + obtunded; + not awake Genitourinary: Plata catheter in place draining clear yellow urine Results & Data Results & Data ([facility]) Vital Signs (Past 12 Hours) Vital Signs Temp Pulse Resp BP Pulse Ox 11/26/19 20:01 100 H 11 L 98 11/26/19 20:00 36.3 C L 100 H 11 L 109/70 98 11/26/19 19:00 36.3 C L 89 13 98 11/26/19 18:01 100 H 13 97 11/26/19 18:00 37.3 C 100 H 13 116/52 L 97 11/26/19 17:00 123 H 16 97 11/26/19 16:01 96 H 11 L 98 11/26/19 16:00 37.1 C 96 H 11 L 86/59 L 98 11/26/19 15:00 100 H 10 L 98 11/26/19 14:01 109 H 13 98 11/26/19 14:00 37.0 C 109 H 13 129/77 98 11/26/19 13:00 103 H 10 L 97 11/26/19 12:01 108 H 14 97 11/26/19 12:00 108 H 10 L 126/60 97 11/26/19 11:50 92 H 16 147/76 H 11/26/19 11:00 37.2 C 93 H 12 11/26/19 10:30 92 H 12 11/26/19 10:00 36.8 C 85 12 11/26/19 09:30 81 13 11/26/19 09:00 79 11 L Laboratory Results 11/26/19 11/26/19 11/26/19 Range/Units 20:18 16:36 14:27 WBC (4.8-10.8) K/uL RBC (4.2-5.4) M/uL Hgb (12.0-16.0) g/dL Hct (37-47) % MCV (80-100) fL MCH (25-34) pg MCHC (32-36) g/dL RDW Std Deviation (36.4-46.3) fL RDW Coeff of Marcelina (11.5-14.5) % Plt Count (130-400) K/uL Immature Gran % (Auto) % Neut % (Auto) % Lymph % (Auto) % Chambers % (Auto) % Eos % (Auto) % Baso % (Auto) % Neut # (Auto) (1.4-6.5) K/uL Lymph # (Auto) (1.2-3.4) K/uL Chambers # (Auto) (0.11-0.59) K/uL Eos # (Auto) (0-0.5) K/uL Baso # (Auto) (0-0.2) K/uL Immature Gran # (Auto) (0.00-0.02) K/uL Echinocytes Sodium 144 (136-145) mmol/L Potassium 4.0 D (3.5-5.1) mmol/L Chloride 113 H (98-107) mmol/L Carbon Dioxide 23 (21-32) mmol/L Anion Gap 8.0 (3-11) BUN 8 (7-18) mg/dl Creatinine 0.65 (0.6-1.2) mg/dl Est Cr Clr Drug Dosing 107.9 ml/min Est GFR ( Amer) 119.1 Est GFR (Non-Af Amer) 102.8 BUN/Creatinine Ratio 12.7 (10-20) Glucose 83 (70-99) mg/dl POC Glucose 85 75 (70-99) mg/dl Calcium 7.1 L (8.5-10.1) mg/dl Phosphorus (2.5-4.9) mg/dl Magnesium (1.8-2.4) mg/dl Specimen Hemolysis 11/26/19 11/26/19 11/26/19 Range/Units 11:03 04:35 04:35 WBC 14.62 H (4.8-10.8) K/uL RBC 3.36 L (4.2-5.4) M/uL Hgb 10.2 L (12.0-16.0) g/dL Hct 30.6 L (37-47) % MCV 91.1 (80-100) fL MCH 30.4 (25-34) pg MCHC 33.3 (32-36) g/dL RDW Std Deviation 58.7 H (36.4-46.3) fL RDW Coeff of Marcelina 17.8 H (11.5-14.5) % Plt Count 64 L (130-400) K/uL Immature Gran % (Auto) 0.5 % Neut % (Auto) 93.7 % Lymph % (Auto) 2.4 % Chambers % (Auto) 2.0 % Eos % (Auto) 1.3 % Baso % (Auto) 0.1 % Neut # (Auto) 13.70 H (1.4-6.5) K/uL Lymph # (Auto) 0.35 L (1.2-3.4) K/uL Chambers # (Auto) 0.29 (0.11-0.59) K/uL Eos # (Auto) 0.19 (0-0.5) K/uL Baso # (Auto) 0.01 (0-0.2) K/uL Immature Gran # (Auto) 0.08 H (0.00-0.02) K/uL Echinocytes 1+ Sodium 143 (136-145) mmol/L Potassium 3.4 L D (3.5-5.1) mmol/L Chloride 114 H (98-107) mmol/L Carbon Dioxide 22 (21-32) mmol/L Anion Gap 7.0 (3-11) BUN 8 (7-18) mg/dl Creatinine 0.64 (0.6-1.2) mg/dl Est Cr Clr Drug Dosing 109.6 ml/min Est GFR ( Amer) 119.7 Est GFR (Non-Af Amer) 103.3 BUN/Creatinine Ratio 12.9 (10-20) Glucose 92 (70-99) mg/dl POC Glucose 90 (70-99) mg/dl Calcium 7.3 L (8.5-10.1) mg/dl Phosphorus 4.2 (2.5-4.9) mg/dl Magnesium 2.2 (1.8-2.4) mg/dl Specimen Hemolysis 11/26/19 11/25/19 Range/Units 02:26 23:00 WBC (4.8-10.8) K/uL RBC (4.2-5.4) M/uL Hgb (12.0-16.0) g/dL Hct (37-47) % MCV (80-100) fL MCH (25-34) pg MCHC (32-36) g/dL RDW Std Deviation (36.4-46.3) fL RDW Coeff of Marcelina (11.5-14.5) % Plt Count (130-400) K/uL Immature Gran % (Auto) % Neut % (Auto) % Lymph % (Auto) % Chambers % (Auto) % Eos % (Auto) % Baso % (Auto) % Neut # (Auto) (1.4-6.5) K/uL Lymph # (Auto) (1.2-3.4) K/uL Chambers # (Auto) (0.11-0.59) K/uL Eos # (Auto) (0-0.5) K/uL Baso # (Auto) (0-0.2) K/uL Immature Gran # (Auto) (0.00-0.02) K/uL Echinocytes Sodium 143 (136-145) mmol/L Potassium 4.1 D (3.5-5.1) mmol/L Chloride 114 H (98-107) mmol/L Carbon Dioxide 22 (21-32) mmol/L Anion Gap 7.0 (3-11) BUN 9 (7-18) mg/dl Creatinine 0.72 (0.6-1.2) mg/dl Est Cr Clr Drug Dosing 97.4 ml/min Est GFR ( Amer) 112.4 Est GFR (Non-Af Amer) 97.0 BUN/Creatinine Ratio 12.5 (10-20) Glucose 86 (70-99) mg/dl POC Glucose 97 (70-99) mg/dl Calcium 6.9 L (8.5-10.1) mg/dl Phosphorus 4.4 (2.5-4.9) mg/dl Magnesium 2.2 (1.8-2.4) mg/dl Specimen Hemolysis PG Care Time/CCT Total # of Minutes Spent Total Time Spent with Patient: Total time spent is greater than 50% in coordination of care (as documented) at patient's floor/unit and/or counseling patient: Coding Level of Care Code 84766 Subseq Hosp Care Lvl 2 Diagnoses Hypotension I95.9 Sepsis A41.9 New onset seizure R56.9 UTI (urinary tract infection) N30.00 Hematuria presence: without hematuria Urinary tract infection type: acute cystitis Thrombocytopenia D69.6 Pleural effusion J90 Abdominal pain R10.9 Nausea & vomiting R11.2 Retroperitoneal bleed R58 Pulmonary embolism I26.99 Anasarca R60.1 Acute blood loss anemia D62 Deep vein thrombosis (DVT) of popliteal vein of left lower extremity I82.432 S/P insertion of IVC (inferior vena caval) filter Z95.828 Hemiplegia and hemiparesis following cerebral infarction affecting right dominant side I69.351 Protein calorie malnutrition E46 Coagulopathy D68.9 Hyperbilirubinemia E80.6 GERD (gastroesophageal reflux disease) K21.9 Major depressive disorder F32.9 Dysphagia R13.10 Atrial tachycardia I47.1 Hypoglycemia E16.2 History of cerebrovascular accident Z86.73 Sinus tachycardia R00.0 DVT prophylaxis Z29.9 (1) UTI (urinary tract infection) Hematuria presence: without hematuria Urinary tract infection type: acute cystitis Qualified Code(s): N30.00 - Acute cystitis without hematuria
[2019-11-26] MEDS: ALBUMIN 25% 50 ML IV SCH (21:23)
[2019-11-27] MEDS: CEFTOLOZANE/TAZOBACTAM 1,500 MG in DEXTROSE 5% 100 ML IV SCH ×3 (00:19→18:35)
[2019-11-27 05:55] LABS: Basophils # (auto) 0.02 K/uL (0-0.2); Basophils % (auto) 0.1 %; Eosinophils # (auto) 0.21 K/uL (0-0.5); Eosinophils % (auto) 1.5 %; Hematocrit (blood only) 31.9 % (37-47); Hemoglobin 10.6 g/dL (12.0-16.0); Immature Granulocytes # (auto) 0.09 K/uL (0.00-0.02); Immature Granulocytes % (auto) 0.6 %; Lymphocytes # (auto) 0.38 K/uL (1.2-3.4); Lymphocytes % (auto) 2.7 %; Mean Corpuscular Hemoglobin 30.6 pg (25-34); Mean Corpuscular Hgb Conc 33.2 g/dL (32-36); Mean Corpuscular Volume 92.2 fL (80-100); Mean Platelet Volume 13.4 fL (7.4-10.4); Monocytes # (auto) 0.24 K/uL (0.11-0.59); Monocytes % (auto) 1.7 %; Neutrophils # (auto) 13.01 K/uL (1.4-6.5); Neutrophils % (auto) 93.4 %; Platelet Count 106 K/uL (130-400); Platelet Estimate Decreased (Normal); RDW Standard Deviation 59.4 fL (36.4-46.3); Red Blood Count 3.46 M/uL (4.2-5.4); White Blood Count 13.95 K/uL (4.8-10.8)
[2019-11-27 06:17] LABS: Potassium 3.7 mmol/L (3.5-5.1)
[2019-11-27 06:18] LABS: BUN Creatinine Ratio 14.3 (10-20); Calcium 7.2 mg/dl (8.5-10.1); Creatinine Clr Calc Pharmacy 103.2 ml/min; Est GFR (African American) 117.4; Est GFR (Non-African American) 101.3
[2019-11-27] MEDS ORDERED: MAGNESIUM SULFATE / D5W 1 GM/100 ML BAG IV ONE (06:41)
[2019-11-27] MEDS ORDERED: POTASSIUM CHLORIDE / WTR 20 MEQ/100 ML PLCT IV ONE (06:41)
[2019-11-27] MEDS: MULTI VIT W/MINERALS LIQUID 15 ML UDP NG SCH (08:12)
[2019-11-27] MEDS: MIDODRINE HCL 2.5 MG TAB PO SCH (08:12)
[2019-11-27] MEDS: MAGNESIUM OXIDE 400 MG TAB PO SCH ×2 (08:13→20:57)
[2019-11-27] MEDS: THIAMINE HCL 100 MG TAB NG SCH ×2 (08:13→20:56)
[2019-11-27] MEDS: POTASSIUM CHLORIDE 20 MEQ/15 ML UDC PO SCH ×2 (08:13→20:57)
[2019-11-27] MEDS: MENTHOL-ZINC OXIDE 360 APPLN/120 GM TUBE EXT PRN (08:17)
--- NOTE | 2019-11-27 09:18 | Critical Care Progress Note ---
Date of Service November 27, 2019 Assessment & Plan (1) Hypotension: (2) Deep vein thrombosis (DVT) of popliteal vein of left lower extremity: Reason Critically Ill: CVA with residual deficits with subsequent hemorrhagic conversion with acute retroperitoneal hematoma complicated by failure to thrive, persistent hypotension, sinus tachycardia PLAN: Neuro: History of CVA followed with hemorrhagic conversion -This is a medical contraindication to thrombolytic therapy Hemiplegia and hemiparesis following cerebral infarction affecting right dominant side -Physical therapy and Occupational Therapy long-term resident secondary to significant functional deficits - 81 mg ASA: Reinitiated as general surgery does not believe there is ongoing hemorrhagic losses Possible seizure -Antibiotic change, reviewed neurology notes Resp: Bilateral pleural effusions -As a consequence of severe protein calorie malnutrition -Status post thoracentesis 11/22 -No growth to date Pulmonary embolism -Systemic anticoagulation therapy contraindicated secondary to retroperitoneal hematoma -Suspect secondary to venous thromboembolism: IVC filter 11/15/2019 Bilateral pleural effusions CV: Hypotension -Check lactic acid to evaluate for hypoperfusion -Lactate previously normal -Midodrine increased to 10 mg p.o. 3 times daily Sinus tachycardia: Resolved -Reviewed cardiology notes -Continue amiodarone as beta-billy contraindicated at this time -Patient appears to be hypoperfused when tachycardia exceeds 120s Fluids/Renal: Indwelling Plata -Severe skin/hygiene breakdown requiring continued Plata ID: Fourth-generation cephalosporin for ESBL E. coli: Complicated urinary tract infection GI/Nutrition: Severe protein calorie malnutrition -Peptamen VHP at 10 -Prosource no carb given in addition -Anabolic steroids contraindicated given venous thromboembolic disease Refeeding syndrome -Aggressive phosphate replacement Loose stools -Loperamide -Previous C. difficile negative no significant change in quantity or quality Anasarca Heme: Acute blood loss anemia -Vitamins and minerals to include iron and vitamin C DVT prophylaxis: Chemical prophylaxis and mechanical prophylaxis are contraindicated due to retroperitoneal bleeding and known lower extremity venous thromboembolism IVC filter in place Endocrine: ICU hyperglycemia protocol Skin: Multiple decubiti Vascular access: Right upper extremity PICC placed 11/21: Left internal jugular triple-lumen placed: 11/21 Code Status: Full code -Pending ethics and reevaluation by palliative care and capacity evaluation: Second physician by [facility] Disposition: ICU I believe the patient has reached an end-stage terminal condition without meaningful chance of recovery. She has had persistent ongoing functional deficits from her stroke and subsequent hemorrhagic conversion. She now has significant venous thromboembolic disease which precludes her from systemic anticoagulation as well as pro anabolic medications. She has significant protein calorie malnutrition ongoing losses and failure to thrive. We will attempt to have a discussion with the patient, her family, and multiple medical providers. (3) Hemiplegia and hemiparesis following cerebral infarction affecting right dominant side: Admission and Anticipated Discharge Date Admission Date: November 11, 2019 Supervising Physician Co-Signing Physician Notes Patient was discussed in multidisciplinary rounds. Physical Exam Physical Exam: General: No acute distress, appears older than stated age I have reviewed the recorded vital signs Neurological: RASS score: 0, Moves all left-sided extremities, Psychological: GCS 15 following complex commands Eyes: Pupils are equal, round and reactive to light, anicteric sclera. Symme trical lids. HENT: Oropharynx Clear, moist Mucous Membranes. Neck: Supple. Symmetric. trachea midline. No thyromegaly. Cardiovascular: Normal peripheral perfusion. Distal pulses and capillary refill intact. No JVD. Respiratory: Respirations are non-labored, no accessory muscle use. Breath sounds are equal. Gastrointestinal: Soft. Non-distended. Lymphatic: No cervical lymphadenopathy. Musculoskeletal: No deformity. Severe generalized peripheral edema Results & Data Results & Data ([facility]) Vital Signs (Past 12 Hours) Vital Signs Temp Pulse Resp BP Pulse Ox 11/27/19 07:38 106 H 11/27/19 06:01 106 H 12 95 11/27/19 06:00 105 H 12 114/69 95 11/27/19 05:05 103 H 13 134/67 94 11/27/19 05:00 93 H 12 94 11/27/19 04:00 116 H 19 93 11/27/19 03:00 36.8 C 91 H 11 L 94 11/27/19 02:30 89 11 L 95 11/27/19 02:15 91 H 11 L 95 11/27/19 02:00 83 13 78/45 L 96 11/27/19 01:00 89 11 L 97 11/27/19 00:01 91 H 11 L 97 11/27/19 00:00 36.6 C 88 10 L 80/61 L 98 11/26/19 23:00 88 12 97 11/26/19 22:00 93 H 10 L 90/59 L 98 Coding Level of Care Code Critical Care 1st 30-74 mins Diagnoses Hypotension I95.9 Deep vein thrombosis (DVT) of popliteal vein of left lower extremity I82.432 Hemiplegia and hemiparesis following cerebral infarction affecting right domin ant side I69.351 Time Spent (min) 50 Comment I have personally spent 50 minutes of critical care time in the direct management of this patient. This is a life/limb threatening event. This includes time spent evaluating patient, direct bedside care, chart review, placing orders, interpretation of diagnostic studies, discussion with consultants, patient, and/or family members regarding treatment decisions, as well as other required patient management activities. This time is exclusive of all separately billable procedures, and teaching time and separate from and in addition to any other critical care service time.
[2019-11-27] MEDS: FLUOXETINE HCL 20 MG/5 ML UDP NG SCH (12:15)
[2019-11-27] MEDS: PANTOprazole 40 MG in SYRINGE 0 ML IV SCH (12:17)
[2019-11-27] MEDS: ALBUMIN 25% 50 ML IV SCH ×2 (12:18→21:01)
[2019-11-27] MEDS: POT PHOSPHATE MONOBASIC W/ SOD TAB NG SCH ×2 (12:22→21:01)
--- NOTE | 2019-11-27 12:44 | Palliative Care Consultation ---
Date of Consultation November 27, 2019 Assessment & Plan (1) Goals of care, counseling/discussion: Patient is a 49-year-old female with a past medical history of a large left MCA CVA on June 09, 2019 with resultant dense right hemiparesis. Patient was at [facility] from 06/08- 06/28 and was transferred to [facility]. Patient was at [facility] until 07/25 when she was transferred to [facility] for further therapies. Patient was sent to [facility] on 11/09 for tachycardia, hypotension, and mild hypoxia. Patient's O2 sats were 88%, heart rate was between 150 and 170. Patient received IV hydration for hypotension- also required pressors, was weaned off pressors on 11/24, pressors were restarted. Patient had an echo which was within normal limits on 11/10, she had a recent colonoscopy with EGD prior to this admission 11/08 due to history of GERD and Crohn's-no abnormalities were found, biopsies were negative for malignancy or any acute issues. Due to hypoxia patient underwent a CTA that showed bilateral emboli with a moderate to large pleural effusion-she had her left pleural effusion tapped on 11/22-was 600 cc removed. Pleural fluid studies showed transudate. Patient had a Doppler was found to have a left distal nonocclusive popliteal vein thrombosis. Patient had been on Lovenox at [facility]. Patient was not on full AC due to prior CVA with hemorrhagic conversion in May. An IVC filter was placed on 11/14. While in the hospital she continued to be tachycardic with low blood pressures, she had decreased urine output and increased edema and was transferred to the ICU on 11/13. Patient's albumin on admission was 0.8, her hemoglobin continued to drop-she was found to have right retroperitoneal bleed extending into the muscle on 11/19-she was transfused 2 units on 11/21 for hemoglobin of 7.1. On 11/24 patient exhibited seizure activity- even though she is at risk for seizures due to her stroke she had not had any prior, it was felt that may be ertapenem had triggered a seizure-this was discontinued and patient was placed on Zerbaxa for ESBL E. coli UTI. Patient was noted to have a UTI prior to admission-despite antibiotics her urine was still positive on 11/21. -Saw patient in room 110-patient was mainly nonverbal, tried to mouth some words but were difficult to understand. Asked the patient yes and no questions, she would nod her head yes and would try to speak if the answer was other than yes. Asked her multiple times in several different ways regarding resuscitation- discussed with patient that resuscitation would likely bring her back at a lower functional status than she is right now-patient indicated she did not want to be resuscitated. CODE STATUS will be changed to DNR/DNI. Of note, admission records from [facility] show that she was a DNR there. Patient gave me permission to speak with her mother, Rosalind An, . Her mother stated that she will go along with Ileana's wishes. -Also talked with patient regarding transition to comfort care-she did indicate she would consider it, indicated she would like some time to think about it, we will follow-up with her tomorrow. Patient's mother stated she will try to get into visit. -Patient's mother reports she had been speaking to the patient daily by phone, was able to understand her speech on the phone-she is going to try to come in this evening and visit if her son can bring her in. -Increasing edema-patient is receiving IV albumin followed by IV Lasix-has only been able to diurese approximately 300 cc. -Hypotension-patient is on midodrine 10 mg 3 times daily, is also continue to require intermittent pressor support. -Nutrition-patient was taking some p.o., had been on dronabinol 5 mg 3 times daily at [facility]-was eating very little, is currently on NG tube feeds. Patient had previously made statements regarding no PEG tube-patient did indicate those continue to be her current wishes. -Patient was started on Prozac after her stroke for neuro restorative as well as depressive symptoms-she had been doing well at [facility]. -CVA-patient with dense right hemiparesis. Patient's expressive aphasia and dysphagia had improved while at [facility] -patient appears to have worsening deficits from when I was involved with her care at [facility]. -Will continue to follow and assist patient and family with medical decision making. PPS-30%, will review records from [facility] regarding functional status at the time of discharge on 07/25. (2) Hemiplegia and hemiparesis following cerebral infarction affecting right dominant side: (3) Deep vein thrombosis (DVT) of popliteal vein of left lower extremity: Not a candidate for AC (4) S/P insertion of IVC (inferior vena caval) filter: (5) Protein calorie malnutrition: Poor p.o. intake, had been on dronabinol prior to admission (6) Retroperitoneal bleed: Hemoglobin stable (7) UTI (urinary tract infection): E. coli ESBL-on 0 Baxa IV Hematuria presence: with hematuria Urinary tract infection type: acute cystitis Qualified Code(s): N30.01 - Acute cystitis with hematuria (8) Dysphagia: Able to take some p.o. (9) New onset seizure: (10) Pleural effusion: Status post TAB-600 cc removed on 11/22 (11) Retroperitoneal hemorrhage: Monitoring CBCs (12) Hypotension: On midodrine 10 mg 3 times daily plus pressors when needed (13) Anasarca: Attempting to diurese with IV albumin followed by IV Lasix-minimal increased urine output. History of Present Illness Reason for Consultation: Address CODE STATUS and Goals of care Requesting Physician: Brennan Randle PA-C Attending Physician: Sundeep Hagen DO History of Present Illness Patient is a 49-year-old female with a past medical history of a large left MCA CVA on June 09, 2019 with resultant dense right hemiparesis. Patient was at [facility] from 06/08- 06/28 and was transferred to [facility]. Patient was at [facility] until 07/25 when she was transferred to [facility] for further therapies. Patient was sent to [facility] on 11/09 for tachycardia, hypotension, and mild hypoxia. Patient's O2 sats were 88%, heart rate was between 150 and 170. Patient received IV hydration for hypotension-also required pressors, was weaned off pressors on 11/24, pressors were restarted. Patient had an echo which was within normal limits on 11/10, she had a recent colonoscopy with EGD prior to this admission 11/08 due to history of GERD and Crohn's-no abnormalities were found, biopsies were negative for malignancy or any acute issues. Due to hypoxia patient underwent a CTA that showed bilateral emboli with a moderate to large pleural effusion-she had her left pleural effusion tapped on 11/22-was 600 cc removed. Pleural fluid studies showed transudate. Patient had a Doppler was found to have a left distal nonocclusive popliteal vein thrombosis. Patient had been on Lovenox at [facility]. Patient was not on full AC due to prior CVA with hemorrhagic conversion in May. An IVC filter was placed on 11/14. While in the hospital she continued to be tachycardic with low blood pressures, she had decreased urine output and increased edema and was transferred to the ICU on 11/13. Patient's albumin on admission was 0.8, her hemoglobin continued to drop-she was found to have right retroperitoneal bleed extending into the muscle on 11/19-she was transfused 2 units on 11/21 for hemoglobin of 7.1. On 11/24 patient exhibited seizure activity- even though she is at risk for seizures due to her stroke she had not had any prior, it was felt that may be ertapenem had triggered a seizure-this was discontinued and patient was placed on Zerbaxa for ESBL E. coli UTI. Patient was noted to have a UTI prior to admission-despite antibiotics her urine was still positive on 11/21. -Saw patient in room 110-patient was mainly nonverbal, tried to mouth some words but were difficult to understand. Asked the patient yes and no questions, she would nod her head yes and would try to speak if the answer was other than yes. Asked her multiple times in several different ways regarding resuscitation- discussed with patient that resuscitation would likely bring her back at a lower functional status than she is right now-patient indicated she did not want to be resuscitated. CODE STATUS will be changed to DNR/DNI. Of note, admission records from [facility] show that she was a DNR there. Patient gave me permission to speak with her mother, Rosalind An, . Her mother stated that she will go along with Ileana's wishes. -Also talked with patient regarding transition to comfort care-she did indicate she would consider it, indicated she would like some time to think about it, we will follow-up with her tomorrow. Patient's mother stated she will try to get into visit. -Patient's mother reports she had been speaking to the patient daily by phone, was able to understand her speech on the phone-she is going to try to come in this evening and visit if her son can bring her in. -Increasing edema-patient is receiving IV albumin followed by IV Lasix-has only been able to diurese approximately 300 cc. -Hypotension-patient is on midodrine 10 mg 3 times daily, is also continue to require intermittent pressor support. -Nutrition-patient was taking some p.o., had been on dronabinol 5 mg 3 times daily at [facility]-was eating very little, is currently on NG tube feeds. Patient had previously made statements regarding no PEG tube-patient did indicate those continue to be her current wishes. -Patient was started on Prozac after her stroke for neuro restorative as well as depressive symptoms-she had been doing well at [facility]. -CVA-patient with dense right hemiparesis. Patient's expressive aphasia and dysphagia had improved while at [facility] -patient appears to have worsening deficits from when I was involved with her care at [facility]. -Will continue to follow and assist patient and family with medical decision making. PPS-30%, will review records from [facility] regarding functional status at the time of discharge on 07/25. Allergies Allergy/AdvReac Type Severity Reaction Status Date / Time Sulfa (Sulfonamide Allergy Intermediate RASH TO Verified 11/10/19 12:36 Antibiotics) FACE Home Medications Home Medications Medication Instructions Recorded Confirmed Type Calmoseptine 1 applic TOPICAL TID PRN 11/02/19 11/10/19 History Fleet Enema 118 ml VT DAILY PRN 11/02/19 11/10/19 History Lactobacillus acidoph-L.bulgar 1 tab PO QDL 11/02/19 11/10/19 History [Floranex] acetaminophen [Tylenol] 325 mg PO QID PRN 11/02/19 11/10/19 History aspirin 81 mg PO QAM 11/02/19 11/10/19 History atorvastatin 40 mg PO PM 11/02/19 11/10/19 History bisacodyl 5 mg VT BID PRN 11/02/19 11/10/19 History bisacodyl 20 mg PO HS 11/02/19 11/10/19 History fluoxetine 20 mg PO QAM 11/02/19 11/10/19 History gabapentin 100 mg PO PM 11/02/19 11/10/19 History loperamide 2 mg PO TID 11/02/19 11/10/19 History magnesium hydroxide [Milk Of 30 ml PO DAILY PRN 11/02/19 11/10/19 History Magnesia Concentrated] mirtazapine 15 mg PO PM 11/02/19 11/10/19 History ondansetron HCl [Zofran] 4 mg PO Q6H PRN 11/02/19 11/10/19 History pantoprazole 20 mg PO QAM 11/02/19 11/10/19 History polyethylene glycol 3350 [Miralax] 17 g PO ONCE 11/02/19 11/10/19 History thiamine HCl (vitamin B1) 100 mg PO QAM 11/02/19 11/10/19 History Saccharomyces boulardii [Florastor] 250 mg PO BID #20 cap 11/06/19 11/10/19 Rx enoxaparin 40 mg SUBCUT DAILY 11/06/19 11/10/19 History metoprolol tartrate 12.5 mg PO BID 11/06/19 11/10/19 History multivitamin 1 tab PO DAILY 11/06/19 11/10/19 History Patient History Medical History Anemia Aphasia Cerebral infarct Constipation Crohn's disease Dysphagia GERD (gastroesophageal reflux disease) Hemiplegia and hemiparesis following cerebral infarction affecting right dominant side Hepatic steatosis Iron deficiency anemia Major depressive disorder Non-traumatic intracranial hemorrhage [facility] resident [facility] Other secondary thrombocytopenia Pulmonary embolism Retention of urine Status post placement of implantable loop recorder Toxic epidermal necrolysis Unspecified severe protein-calorie malnutrition Social History Smoking Status: Former smoker Smoking End Date: years ago; Hx Alcohol Use: No Hx Substance Use: No Preferred Language: [place] Communication Ability: Effective Auto Emissions Technician Required: No Beliefs That Will Affect Care: None Current Living Situation: Group Home Current Living Situation Comment: [facility] resident Other Information That Helps Us Care for You: No Feels Safe at Home: Yes Safety Concerns: Feels Safe At This Time Review of Systems Review of Systems: Unobtainable due to cognitive status Physical Exam Physical Exam: PE: Patient awake, will open her eyes when speaking to her. HEENT: EOMI, hearing within normal limits Respirations: Unlabored, no rhonchi, diminished breath sounds at bases CV: Tachycardic, pitting edema to the level of the groin bilaterally Abdomen: Soft, nontender. Area of erythema right lower quadrant and right upper thigh Extremities: Appear well perfused, 3+ pitting edema Neuro: Patient unable to follow simple commands, asked her to blink twice-she blinked repetitively. She did not move fingers on either hand or toes Results & Data ([facility]) Vital Signs (Past 12 Hours) Vital Signs Temp Pulse Resp BP Pulse Ox 11/27/19 07:38 106 H 11/27/19 06:01 106 H 12 95 11/27/19 06:00 105 H 12 114/69 95 11/27/19 05:05 103 H 13 134/67 94 11/27/19 05:00 93 H 12 94 11/27/19 04:00 116 H 19 93 11/27/19 03:00 98.2 F 91 H 11 L 94 11/27/19 02:30 89 11 L 95 11/27/19 02:15 91 H 11 L 95 11/27/19 02:00 83 13 78/45 L 96 11/27/19 01:00 89 11 L 97 PG Care Time/CCT Total # of Minutes Spent Total Time Spent with Patient: Total time spent 100 minutes with greater than 50% of the time spent at bedside on 2 separate visits discussing goals of care and CODE STATUS with patient as well as collaborating with attending physicians and patient's mother by phone. Prolonged Care Time Prolonged Care Time: Yes Total Prolonged Care Time: 30 Coding Level of Care Code 73211 Inpt Consult Level 3 Diagnoses Goals of care, counseling/discussion Z71.89 Hemiplegia and hemiparesis following cerebral infarction affecting right dominant side I69.351 Deep vein thrombosis (DVT) of popliteal vein of left lower extremity I82.432 S/P insertion of IVC (inferior vena caval) filter Z95.828 Protein calorie malnutrition E46 Retroperitoneal bleed R58 UTI (urinary tract infection) N30.01 Hematuria presence: with hematuria Urinary tract infection type: acute cystitis Dysphagia R13.10 New onset seizure R56.9 Pleural effusion J90 Retroperitoneal hemorrhage R58 Hypotension I95.9 Anasarca R60.1 Additional Codes Prolonged Care Time - Prolonged Care Time: Yes ([id number]) Time Spent (min) 100 Critical Care Time Prolonged Care Time Prolonged Care Time: Yes Total Prolonged Care Time: 30 100
[2019-11-27] MEDS: MIDODRINE HCL 10 MG TAB PO SCH ×2 (12:56→18:37)
[2019-11-27] MEDS: FUROSEMIDE 40 MG in SYRINGE 0 ML IV SCH ×2 (12:57→21:56)
--- NOTE | 2019-11-27 13:28 | Neurology Progress Note ---
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 with chest pain and tachycardia, found to have bilateral PEs a/w LLE DVT. # H/o L MCA stroke c/b hemorrhagic conversion with residual aphasia/right sided weakness: unfortunately, now has a DVT/bilateral PE and needs to be anticoagulated. She is greater than 3 months outside of her hemorrhagic con version and there is no neurologic contraindication to AC if she needs it going forward (https://[email or web address].org/doi/pdf/[email or web address]/[email or web address]) - continue aspirin 81mg daily - if she survives this initial period, would recommend transitioning to warfarin instead of DOAC as that is easier to reverse if needed - would also have her complete outpatient cancer screening (mammo, gynecologic cancers, colonoscopy) as her stroke and now DVT/PE without a clear cause would be c/f underlying cancer as a trigger # Possible seizure: - agree with transitioning antibiotics as has already been completed - if she has another seizure, would recommend loading with 1g keppra and starting keppra 500mg bid (this would be preferred over depakote given age, co- morbidities with potential for side effects, and low albumin status) Thank you for this interesting consult. Plan of care discussed with primary team. Please call or text with questions. Admission and Anticipated Discharge Date Admission Date: November 11, 2019 Subjective NAEs overnight. No further seizures noted. She is significantly weaker on examination today than when I saw her about 2 weeks ago. She endorsed having a headache. Review of Systems Review of Systems: Difficult to assess 2/2 aphasia but did appear to appropriately answer questions when (see HPI for full 10 point ROS) Results & Data ([facility]) Vital Signs (Past 12 Hours) Vital Signs Temp Pulse Resp BP Pulse Ox 11/27/19 07:38 106 H 11/27/19 06:01 106 H 12 95 11/27/19 06:00 105 H 12 114/69 95 09/14/20 05:05 103 H 13 134/67 94 11/27/19 05:00 93 H 12 94 11/27/19 04:00 116 H 19 93 11/27/19 03:00 36.8 C 91 H 11 L 94 11/27/19 02:30 89 11 L 95 11/27/19 02:15 91 H 11 L 95 11/27/19 02:00 83 13 78/45 L 96 Exam (Neuro) Physical Exam: General Exam: GEN: NAD, sitting in bed. HEENT: No conjunctival injection, no rhinorrhea. CV: RRR, no peripheral edema PULM: Nonlabored respirations on room air. Neuro Exam: MS: Drowsy but easily arousable. Oriented to person, place, not date. Speech fluent without dysarthria, + paraphasic errors. Language intact including naming, comprehension, not repetition. Cognition and memory mildly impaired. Attention intact. No neglect. CN: Slight right eye, right visual field cut. PERRLA OU. EOMI without nystagmus. Facial sensation intact to LT. R FP. Hearing intact to conversation. Uvula midline with symmetric palatal elevation. Shoulder shrug normal on the left. Tongue midline. MOTOR: Normal bulk, decreased tone throughout. No pronator drift. LUE antigravity with drift to bed, 4-/5 hand grasp. RUE flaccid with increased tone (early spasticity noted). LLE strength 4-5/5 at iliopsoas, 3/5 tibialis anterior, and 4-/5 gastrocnemius; RLE strength 3/5 at iliopsoas/hamstrings/quadriceps/TA/gastroc. REFLEXES: 2+ at L biceps, triceps, brachioradialis, 1+ L patella and trace Achilles; 2+ and brisk in R biceps/triceps/brachioradialis/patella, 2+ R Achilles. Flexor plantar responses in left, right toe mute. SENSORY: Intact to LT without extinction to double simultaneous stimuli. Vibration intact throughout. COORDINATION: unable to assess 2/2 weakness GAIT: deferred given physical status PG Care Time/CCT Total # of Minutes Spent Total Time Spent with Patient: Total time spent is greater than 50% in coordination of care (as documented) at patient's floor/unit and/or counseling patient: Coding Level of Care Code 66538 Subseq Hosp Care Lvl 3 Diagnoses New onset seizure R56.9 History of cerebrovascular accident Z86.73 Pulmonary embolism I26.99
[2019-11-27] MEDS ORDERED: ACETAMINOPHEN 1,000 MG/100 ML VIAL IV PRN (15:55)
--- NOTE | 2019-11-27 16:56 | Electroencephalogram ---
EEG Procedure Note Date of Service November 27, 2019 Start / End Times Start Time: 6:06am End Time: 6:26am Referring Physician Addison Baez History possible seizure Home Medication List Home Medications Medication Instructions Recorded Confirmed Type Calmoseptine 1 applic TOPICAL TID PRN 11/02/19 11/10/19 History Fleet Enema 118 ml NJ DAILY PRN 11/02/19 11/10/19 History Lactobacillus acidoph-L.bulgar 1 tab PO QDL 11/02/19 11/10/19 History [Floranex] acetaminophen [Tylenol] 325 mg PO QID PRN 11/02/19 11/10/19 History aspirin 81 mg PO QAM 11/02/19 11/10/19 History atorvastatin 40 mg PO PM 11/02/19 11/10/19 History bisacodyl 5 mg NJ BID PRN 11/02/19 11/10/19 History bisacodyl 20 mg PO HS 11/02/19 11/10/19 History fluoxetine 20 mg PO QAM 11/02/19 11/10/19 History gabapentin 100 mg PO PM 11/02/19 11/10/19 History loperamide 2 mg PO TID 11/02/19 11/10/19 History magnesium hydroxide [Milk Of 30 ml PO DAILY PRN 11/02/19 11/10/19 History Magnesia Concentrated] mirtazapine 15 mg PO PM 11/02/19 11/10/19 History ondansetron HCl [Zofran] 4 mg PO Q6H PRN 11/02/19 11/10/19 History pantoprazole 20 mg PO QAM 11/02/19 11/10/19 History polyethylene glycol 3350 [Miralax] 17 g PO ONCE 11/02/19 11/10/19 History thiamine HCl (vitamin B1) 100 mg PO QAM 11/02/19 11/10/19 History Saccharomyces boulardii [Florastor] 250 mg PO BID #20 cap 11/06/19 11/10/19 Rx enoxaparin 40 mg SUBCUT DAILY 11/06/19 11/10/19 History metoprolol tartrate 12.5 mg PO BID 11/06/19 11/10/19 History multivitamin 1 tab PO DAILY 11/06/19 11/10/19 History Inpatient Medication List Acetaminophen (Acetaminophen 325 Mg Tab) 650 mg PO Q4H PRN PRN Reason: Pain or Fever Stop: 12/10/19 16:09 Last Admin: 11/26/19 16:50 Dose: 650 mg Documented by: [id number] Admin: 11/26/19 11:59 Dose: 650 mg Documented by: [id number] Admin: 11/25/19 17:34 Dose: 650 mg Documented by: [id number] Admin: 11/25/19 12:09 Dose: 650 mg Documented by: [id number] Admin: 11/24/19 14:41 Dose: 650 mg Documented by: [id number] Admin: 11/23/19 11:47 Dose: 650 mg Documented by: [id number] Admin: 11/21/19 23:47 Dose: 650 mg Documented by: [id number] Amiodarone HCl (Amiodarone 200 Mg Tab) 200 mg PO BIDM [facility] Stop: 12/16/19 16:59 Last Admin: 11/21/19 07:59 Dose: 200 mg Documented by: [id number] Admin: 11/20/19 17:53 Dose: 200 mg Documented by: [id number] Admin: 11/20/19 08:06 Dose: 200 mg Documented by: [id number] Admin: 11/19/19 17:15 Dose: 200 mg Documented by: [id number] Admin: 11/19/19 08:05 Dose: 200 mg Documented by: [id number] Admin: 11/18/19 17:32 Dose: 200 mg Documented by: [id number] Admin: 11/18/19 08:06 Dose: 200 mg Documented by: [id number] Admin: 11/17/19 18:01 Dose: 200 mg Documented by: [id number] Admin: 11/17/19 08:07 Dose: 200 mg Documented by: [id number] Admin: 11/16/19 17:22 Dose: 200 mg Documented by: [id number] Atorvastatin Calcium (Atorvastatin 40 Mg Tab) 40 mg NG PM [facility] Stop: 12/10/19 20:59 Last Admin: 11/26/19 20:22 Dose: 40 mg Documented by: [id number] Admin: 11/25/19 21:52 Dose: 40 mg Documented by: [id number] Admin: 11/24/19 20:49 Dose: 40 mg Documented by: [id number] Admin: 11/23/19 21:20 Dose: 40 mg Documented by: [id number] Admin: 11/22/19 20:53 Dose: 40 mg Documented by: [id number] Calamine/Phenol (Menthol-Zinc Oxide 360 Appln/120 Gm Tube) 1 appln EXT TID PRN PRN Reason: Skin Irritation Stop: 12/10/19 16:09 Last Admin: 11/27/19 08:17 Dose: 1 appln Documented by: [id number] Admin: 11/26/19 16:49 Dose: 1 appln Documented by: [id number] Admin: 11/26/19 08:30 Dose: 1 appln Documented by: [id number] Admin: 11/26/19 00:31 Dose: 1 appln Documented by: [id number] Admin: 11/25/19 21:18 Dose: 1 appln Documented by: [id number] Admin: 11/25/19 12:15 Dose: 1 appln Documented by: [id number] Admin: 11/25/19 04:00 Dose: 1 appln Documented by: [id number] Admin: 11/25/19 00:01 Dose: 1 appln Documented by: [id number] Admin: 11/24/19 20:00 Dose: 1 appln Documented by: [id number] Admin: 11/23/19 17:31 Dose: 1 appln Documented by: [id number] Admin: 11/23/19 12:56 Dose: 1 appln Documented by: [id number] Admin: 11/22/19 17:58 Dose: 1 appln Documented by: [id number] Dextrose (Dextrose 50% 50 Ml Syringe) 25 - 50 ml IV UD PRN; Protocol PRN Reason: Hypoglycemia Protocol Stop: 12/21/19 17:20 Last Admin: 11/21/19 20:33 Dose: 25 ml Documented by: [id number] Fluoxetine HCl (Fluoxetine Hcl 20 Mg/5 Ml Udp) 20 mg NG QAM [facility] Stop: 12/22/19 13:59 Last Admin: 11/27/19 12:15 Dose: 20 mg Documented by: [id number] Admin: 11/26/19 08:23 Dose: 20 mg Documented by: [id number] Admin: 11/25/19 10:12 Dose: 20 mg Documented by: [id number] Admin: 11/24/19 08:09 Dose: 20 mg Documented by: [id number] Admin: 11/23/19 08:10 Dose: 20 mg Documented by: [id number] Admin: 11/22/19 12:35 Dose: 20 mg Documented by: [id number] Pantoprazole Sodium 40 mg/ (Syringe) 10 mls @ 5 mls/min IV DAILY@1100 [facility] Stop: 12/22/19 10:59 Last Admin: 11/27/19 12:17 Dose: 5 mls/min Documented by: [id number] Admin: 11/26/19 11:59 Dose: 5 mls/min Documented by: [id number] Admin: 11/25/19 11:04 Dose: 5 mls/min Documented by: [id number] Admin: 11/24/19 11:30 Dose: 5 mls/min Documented by: [id number] Admin: 11/23/19 11:37 Dose: 5 mls/min Documented by: [id number] Admin: 11/22/19 11:19 Dose: 5 mls/min Documented by: [id number] Furosemide 40 mg/ Syringe 4 mls @ 4 mls/min IV BID@1000,2200 [facility] Stop: 12/23/19 09:59 Last Admin: 11/27/19 12:57 Dose: 4 mls/min Documented by: [id number] Admin: 11/26/19 21:44 Dose: 4 mls/min Documented by: [id number] Admin: 11/26/19 10:16 Dose: 4 mls/min Documented by: [id number] Admin: 11/25/19 23:18 Dose: 4 mls/min Documented by: [id number] Admin: 11/25/19 10:12 Dose: 4 mls/min Documented by: [id number] Admin: 11/23/19 22:31 Dose: 4 mls/min Documented by: [id number] Admin: 11/23/19 08:54 Dose: 4 mls/min Documented by: [id number] Norepinephrine Bitartrate 16 (mg/ Dextrose) 516 mls @ 0 mls/hr IV .Q0M [facility]; Pro tocol Stop: 12/23/19 11:14 Last Titration: 11/25/19 08:42 Dose: 0 mcg/kg/min, 0 mls/hr Documented by: [id number] Titration: 11/25/19 07:12 Dose: 0.02 mcg/kg/min, 3.3 mls/hr Documented by: [id number] Cosigned by: [id number] Titration: 11/25/19 05:00 Dose: 0.02 mcg/kg/min, 3.3 mls/hr Documented by: [id number] Titration: 11/25/19 02:00 Dose: 0.04 mcg/kg/min, 6.5 mls/hr Documented by: [id number] Admin: 11/24/19 19:12 Dose: 0.02 mcg/kg/min, 3.3 mls/hr Documented by: [id number] Cosigned by: [id number] Titration: 11/24/19 19:12 Dose: 0.02 mcg/kg/min, 3.3 mls/hr Documented by: [id number] Cosigned by: [id number] Admin: 11/24/19 17:03 Dose: Not Given Documented by: [id number] Titration: 11/24/19 12:51 Dose: 0.02 mcg/kg/min, 3.3 mls/hr Documented by: [id number] Titration: 11/24/19 09:24 Dose: 0.04 mcg/kg/min, 6.5 mls/hr Documented by: [id number] Titration: 11/24/19 07:10 Dose: 0.02 mcg/kg/min, 3.3 mls/hr Documented by: [id number] Cosigned by: [id number] Titration: 11/24/19 06:13 Dose: 0.02 mcg/kg/min, 3.3 mls/hr Documented by: [id number] Titration: 11/24/19 05:22 Dose: 0.03 mcg/kg/min, 4.9 mls/hr Documented by: [id number] Titration: 11/24/19 04:19 Dose: 0.05 mcg/kg/min, 8.1 mls/hr Documented by: [id number] Titration: 11/24/19 00:20 Dose: 0.07 mcg/kg/min, 11.4 mls/hr Documented by: [id number] Titration: 11/23/19 23:20 Dose: 0.09 mcg/kg/min, 14.7 mls/hr Documented by: [id number] Cosigned by: [id number] Titration: 11/23/19 21:53 Dose: 0.09 mcg/kg/min, 14.7 mls/hr Documented by: [id number] Titration: 11/23/19 17:31 Dose: 0.1 mcg/kg/min, 16.3 mls/hr Documented by: [id number] Titration: 11/23/19 15:54 Dose: 0.13 mcg/kg/min, 21.2 mls/hr Documented by: [id number] Titration: 11/23/19 15:10 Dose: 0.15 mcg/kg/min, 24.4 mls/hr Documented by: [id number] Cosigned by: [id number] Titration: 11/23/19 14:24 Dose: 0.15 mcg/kg/min, 24.4 mls/hr Documented by: [id number] Titration: 11/23/19 13:42 Dose: 0.1 mcg/kg/min, 16.3 mls/hr Documented by: [id number] Admin: 11/23/19 11:45 Dose: 0.12 mcg/kg/min, 19.6 mls/hr Documented by: [id number] Cosigned by: [id number] Ceftolozane/Tazobactam 1,500 (mg/ Dextrose) 111.4 mls @ 111.4 mls/hr IV Q8H [facility] Stop: 12/06/19 07:59 Last Infusion: 11/27/19 09:18 Dose: 0 mls/hr Documented by: [id number] Admin: 11/27/19 08:11 Dose: 111 mls/hr Documented by: [id number] Infusion: 11/27/19 01:20 Dose: 0 mls/hr Documented by: [id number] Admin: 11/27/19 00:19 Dose: 111 mls/hr Documented by: [id number] Infusion: 11/26/19 17:53 Dose: 0 mls/hr Documented by: [id number] Admin: 11/26/19 16:50 Dose: 111 mls/hr Documented by: [id number] Infusion: 11/26/19 10:11 Dose: 0 mls/hr Documented by: [id number] Admin: 11/26/19 08:57 Dose: 111.4 mls/hr Documented by: [id number] Albumin Human (Albumin 25%) 50 mls @ 200 mls/hr IV BID@0264,2652 [facility] Stop: 12/26/19 21:44 Last Infusion: 11/27/19 12:57 Dose: 0 mls/hr Documented by: [id number] Admin: 11/27/19 12:18 Dose: 200 mls/hr Documented by: [id number] Infusion: 11/26/19 21:38 Dose: 0 mls/hr Documented by: [id number] Admin: 11/26/19 21:23 Dose: 200 mls/hr Documented by: [id number] Loperamide HCl (Loperamide Liquid 120 Ml Bottle) 2 mg PO PRN PRN PRN Reason: loose stools Stop: 12/23/19 17:10 Last Admin: 11/26/19 20:21 Dose: 2 mg Documented by: [id number] Admin: 11/26/19 08:22 Dose: 2 mg Documented by: [id number] Admin: 11/26/19 02:27 Dose: 2 mg Documented by: [id number] Admin: 11/26/19 00:31 Dose: 2 mg Documented by: [id number] Admin: 11/25/19 12:09 Dose: 2 mg Documented by: [id number] Admin: 11/23/19 21:46 Dose: 2 mg Documented by: [id number] Admin: 11/23/19 17:25 Dose: 2 mg Documented by: [id number] Magnesium Oxide (Magnesium Oxide 400 Mg Tab) 400 mg PO BID [facility] Stop: 12/25/19 20:59 Last Admin: 11/27/19 08:13 Dose: 400 mg Documented by: [id number] Admin: 11/26/19 20:23 Dose: 400 mg Documented by: [id number] Admin: 11/26/19 08:23 Dose: 400 mg Documented by: [id number] Admin: 11/25/19 21:53 Dose: 400 mg Documented by: [id number] Midodrine (Midodrine Hcl 10 Mg Tab) 10 mg PO TID@0800,1200,1700 [facility] Stop: 12/27/19 11:59 Last Admin: 11/27/19 12:56 Dose: 10 mg Documented by: [id number] Mirtazapine (Mirtazapine Tab 15 Mg Tab) 15 mg NG PM@2030 [facility] Stop: 12/22/19 20:29 Last Admin: 11/26/19 20:22 Dose: 15 mg Documented by: [id number] Admin: 11/25/19 21:52 Dose: 15 mg Documented by: [id number] Admin: 11/24/19 20:48 Dose: 15 mg Documented by: [id number] Admin: 11/23/19 21:19 Dose: 15 mg Documented by: [id number] Admin: 11/22/19 20:53 Dose: 15 mg Documented by: [id number] Miscellaneous (Carbohydrates For Hypoglycemia ) 15 - 30 gm PO UD PRN PRN Reason: Hypoglycemia Protocol Stop: 12/21/19 17:20 Last Admin: 11/25/19 21:45 Dose: 15 gm Documented by: [id number] Admin: 11/24/19 23:59 Dose: 15 gm Documented by: [id number] Admin: 11/21/19 11:35 Dose: 15 gm Documented by: [id number] Miscellaneous (Icu Electrolyte Replacement Protocol) 1 ea N/A UD PRN PRN Reason: for e-lyte repletion Stop: 12/02/19 07:46 Last Admin: 11/25/19 08:55 Dose: 1 ea Documented by: [id number] Multivitamins/Minerals (Multi Vit W/Minerals Liquid 15 Ml Udp) 15 ml NG DAILY [facility] Stop: 12/22/19 13:59 Last Admin: 11/27/19 08:12 Dose: 15 ml Documented by: [id number] Admin: 11/26/19 08:23 Dose: 15 ml Documented by: [id number] Admin: 11/25/19 08:23 Dose: 15 ml Documented by: [id number] Admin: 11/24/19 08:09 Dose: 15 ml Documented by: [id number] Admin: 11/23/19 08:10 Dose: 15 ml Documented by: [id number] Admin: 11/22/19 12:35 Dose: 15 ml Documented by: [id number] Nutritional Formula (Peptamen Intense Vhp 1.0 Vitaliy 1,000 Ml Bag) 10 ml GT UD [facility]; Protocol Stop: 12/25/19 14:24 Last Admin: 11/25/19 15:23 Dose: 1,000 ml Documented by: [id number] Nutritional Formula (Prosource No Carb 30 Ml/Pkt) 30 ml NG DAILY@1600 [facility] Stop: 12/06/19 16:01 Last Admin: 11/26/19 16:49 Dose: 30 ml Documented by: [id number] Admin: 11/25/19 15:23 Dose: Not Given Documented by: [id number] Ondansetron HCl (Ondansetron Inj 2 Mg/Ml 2 Ml Vial) 4 mg IV Q6H PRN PRN Reason: Nausea Stop: 12/10/19 16:09 Last Admin: 11/20/19 08:18 Dose: 4 mg Documented by: [id number] Admin: 11/14/19 21:39 Dose: 4 mg Documented by: [id number] Admin: 11/13/19 20:24 Dose: 4 mg Documented by: [id number] Potassium Chloride (Potassium Chloride 20 Meq/15 Ml Udc) 20 meq PO BID [facility] Stop: 12/25/19 20:59 Last Admin: 11/27/19 08:13 Dose: 20 meq Documented by: [id number] Admin: 11/26/19 20:21 Dose: 20 meq Documented by: [id number] Admin: 11/26/19 08:23 Dose: 20 meq Documented by: [id number] Admin: 11/25/19 22:14 Dose: 20 meq Documented by: [id number] Potassium Phosphate (Pot Phosphate Monobasic W/ Sod Tab) 2 tab NG BID [facility] Stop: 12/25/19 11:59 Last Admin: 11/27/19 12:22 Dose: 2 tab Documented by: [id number] Admin: 11/26/19 20:32 Dose: 2 tab Documented by: [id number] Admin: 11/26/19 10:16 Dose: 2 tab Documented by: [id number] Admin: 11/25/19 21:58 Dose: 2 tab Documented by: [id number] Admin: 11/25/19 12:09 Dose: 2 tab Documented by: [id number] Thiamine HCl (Thiamine Hcl 100 Mg Tab) 100 mg NG BID [facility] Stop: 12/22/19 20:59 Last Admin: 11/27/19 08:13 Dose: 100 mg Documented by: [id number] Admin: 11/26/19 20:22 Dose: 100 mg Documented by: [id number] Admin: 11/26/19 08:23 Dose: 100 mg Documented by: [id number] Admin: 11/25/19 21:55 Dose: 100 mg Documented by: [id number] Admin: 11/25/19 08:23 Dose: 100 mg Documented by: [id number] Admin: 11/24/19 20:49 Dose: 100 mg Documented by: [id number] Admin: 11/24/19 08:32 Dose: 100 mg Documented by: [id number] Admin: 11/23/19 21:19 Dose: 100 mg Documented by: [id number] Admin: 11/23/19 08:12 Dose: 100 mg Documented by: [id number] Admin: 11/22/19 20:54 Dose: 100 mg Documented by: [id number] Discontinued Medications Acetaminophen (Acetaminophen 1000 Mg/100 Ml Iv) 1,000 mg IV ONCE ONE Stop: 11/15/19 07:45 Last Admin: 11/15/19 08:02 Dose: 1,000 mg Documented by: [id number] Adenosine (Adenosine Iv Soln 3 Mg/Ml 2 Ml Vial) Confirm Administered Dose 6 mg IV .STK-MED ONE Stop: 11/16/19 11:41 Last Admin: 11/16/19 12:48 Dose: Not Given Documented by: [id number] Aspirin (Aspirin 81 Mg Ectab) [facility] [place] Stop: 12/11/19 08:59 Last Admin: 11/21/19 07:58 Dose: 81 mg Documented by: [id number] Admin: 11/20/19 08:06 Dose: 81 mg Documented by: [id number] Admin: 11/19/19 08:06 Dose: 81 mg Documented by: [id number] Admin: 11/18/19 08:06 Dose: 81 mg Documented by: [id number] Admin: 11/17/19 08:07 Dose: 81 mg Documented by: [id number] Admin: 11/16/19 08:37 Dose: 81 mg Documented by: [id number] Admin: 11/15/19 09:11 Dose: Not Given Documented by: [id number] Admin: 11/14/19 07:47 Dose: 81 mg Documented by: [id number] Admin: 11/13/19 07:46 Dose: 81 mg Documented by: [id number] Admin: 11/12/19 08:08 Dose: 81 mg Documented by: [id number] Admin: 11/11/19 08:39 Dose: 81 mg Documented by: [id number] Atorvastatin Calcium (Atorvastatin 40 Mg Tab) 40 mg PO PM [facility] Stop: 12/10/19 20:59 Last Admin: 11/21/19 20:17 Dose: 40 mg Documented by: [id number] Admin: 11/20/19 21:01 Dose: 40 mg Documented by: [id number] Admin: 11/19/19 20:47 Dose: 40 mg Documented by: [id number] Admin: 11/18/19 20:33 Dose: 40 mg Documented by: [id number] Admin: 11/17/19 21:06 Dose: 40 mg Documented by: [id number] Admin: 11/16/19 20:09 Dose: 40 mg Documented by: [id number] Admin: 11/15/19 20:42 Dose: 40 mg Documented by: [id number] Admin: 11/14/19 22:08 Dose: Not Given Documented by: [id number] Admin: 11/13/19 20:02 Dose: 40 mg Documented by: [id number] Admin: 11/12/19 19:42 Dose: 40 mg Documented by: [id number] Admin: 11/11/19 20:18 Dose: 40 mg Documented by: [id number] Admin: 11/10/19 20:34 Dose: 40 mg Documented by: [id number] Dextrose (Dextrose 50% 50 Ml Syringe) Confirm Administered Dose 50 ml IV .STK- MED [facility] Stop: 11/21/19 05:12 Last Admin: 11/21/19 05:13 Dose: 50 ml Documented by: [id number] Enoxaparin Sodium (Enoxaparin 80 Mg/0.8 Ml Syr) 80 mg SQ Q12 [facility] Stop: 12/12/19 10:59 Last Admin: 11/14/19 21:40 Dose: 80 mg Documented by: [id number] Admin: 11/14/19 07:48 Dose: 80 mg Documented by: [id number] Admin: 11/13/19 19:59 Dose: 80 mg Documented by: [id number] Admin: 11/13/19 07:46 Dose: 80 mg Documented by: [id number] Admin: 11/12/19 19:40 Dose: 80 mg Documented by: [id number] Admin: 11/12/19 11:18 Dose: 80 mg Documented by: [id number] Fluoxetine HCl (Fluoxetine Hcl 20 Mg Cap) 20 mg PO QAM [facility] Stop: 12/11/19 08:59 Last Admin: 11/22/19 14:58 Dose: Not Given Documented by: [id number] Admin: 11/21/19 07:58 Dose: 20 mg Documented by: [id number] Admin: 11/20/19 08:06 Dose: 20 mg Documented by: [id number] Admin: 11/19/19 08:06 Dose: 20 mg Documented by: [id number] Admin: 11/18/19 08:06 Dose: 20 mg Documented by: [id number] Admin: 11/17/19 08:07 Dose: 20 mg Documented by: [id number] Admin: 11/16/19 08:37 Dose: 20 mg Documented by: [id number] Admin: 11/15/19 09:12 Dose: Not Given Documented by: [id number] Admin: 11/14/19 07:47 Dose: 20 mg Documented by: [id number] Admin: 11/13/19 07:46 Dose: 20 mg Documented by: [id number] Admin: 11/12/19 08:06 Dose: 20 mg Documented by: [id number] Admin: 11/11/19 08:40 Dose: 20 mg Documented by: [id number] Furosemide (Furosemide 40 Mg/4 Ml Vial) 20 mg IV 1845 ONE Stop: 11/22/19 18:46 Last Admin: 11/22/19 19:13 Dose: 20 mg Documented by: [id number] Gabapentin (Gabapentin 100 Mg Cap) 100 mg PO PM@2030 [facility] Stop: 12/10/19 20:29 Last Admin: 11/14/19 22:08 Dose: Not Given Documented by: [id number] Admin: 11/13/19 20:00 Dose: 100 mg Documented by: [id number] Admin: 11/12/19 19:41 Dose: 100 mg Documented by: [id number] Admin: 11/11/19 20:18 Dose: 100 mg Documented by: [id number] Admin: 11/10/19 20:33 Dose: 100 mg Documented by: [id number] Heparin Sodium (Beef Lung) (Heparin Sq 5000 Unit Heart Alert Carp) Confirm Administered Dose 5,000 units .ROUTE .STK-MED ONE Stop: 11/23/19 11:35 Last Admin: 11/23/19 12:49 Dose: Not Given Documented by: [id number] Heparin Sodium/Sodium Chloride (Heparin In Nss Infusion 1000 Unit/500 Ml (2 U/Ml) Bag) Confirm Administered Dose 1,000 units IV .STK-MED ONE Stop: 11/15/19 11:27 Last Admin: 11/15/19 12:46 Dose: 40 units Documented by: [id number] Sodium Chloride (Nss 1000ml) 1,000 mls @ 999 mls/hr IV .Q1H1M ONE Stop: 11/10/19 13:00 Last Infusion: 11/10/19 14:42 Dose: 0 mls/hr Documented by: [id number] Admin: 11/10/19 13:41 Dose: 999 mls/hr Documented by: [id number] Ceftriaxone Sodium (Rocephin) 1,000 mg in 50 mls @ 100 mls/hr IV NOW STA Stop: 11/10/19 12:30 Last Infusion: 11/10/19 14:12 Dose: 0 mls/hr Documented by: [id number] Admin: 11/10/19 13:42 Dose: 100 mls/hr Documented by: [id number] Sodium Chloride (Nss 1000ml) 1,000 mls @ 999 mls/hr IV .Q1H1M ONE Stop: 11/10/19 14:28 Last Infusion: 11/10/19 14:44 Dose: 0 mls/hr Documented by: [id number] Admin: 11/10/19 13:43 Dose: 999 mls/hr Documented by: [id number] Ceftriaxone Sodium 2,000 mg/ (Dextrose) 50 mls @ 100 mls/hr IV Q24H [facility]; Protocol Stop: 11/21/19 11:59 Last Infusion: 11/13/19 12:50 Dose: 0 mls/hr Documented by: [id number] Admin: 11/13/19 12:19 Dose: 100 mls/hr Documented by: [id number] Infusion: 11/12/19 11:48 Dose: 0 mls/hr Documented by: [id number] Admin: 11/12/19 11:15 Dose: 100 mls/hr Documented by: [id number] Infusion: 11/11/19 12:09 Dose: 0 mls/hr Documented by: [id number] Admin: 11/11/19 11:39 Dose: 100 mls/hr Documented by: [id number] Heparin Sodium/Dextrose (Heparin Sodium/Dextrose) 25,000 units in 500 mls @ 16 mls/hr IV .Q24H [facility]; Protocol Stop: 12/11/19 01:14 Last Titration: 11/12/19 09:53 Dose: 0 units/hr, 0 mls/hr Documented by: [id number] Cosigned by: [id number] Titration: 11/12/19 09:37 Dose: 0 units/hr, 0 mls/hr Documented by: [id number] Cosigned by: [id number] Titration: 11/12/19 02:35 Dose: 800 units/hr, 16 mls/hr Documented by: [id number] Cosigned by: [id number] Admin: 11/11/19 23:19 Dose: Not Given Documented by: [id number] Titration: 11/11/19 22:44 Dose: 0 units/hr, 0 mls/hr Documented by: [id number] Cosigned by: [id number] Admin: 11/11/19 14:53 Dose: 1,000 units/hr, 20 mls/hr Documented by: [id number] Cosigned by: [id number] Titration: 11/11/19 14:53 Dose: 0 units/hr, 0 mls/hr Documented by: [id number] Cosigned by: [id number] Titration: 11/11/19 06:30 Dose: 0 units/hr, 0 mls/hr Documented by: [id number] Cosigned by: [id number] Admin: 11/11/19 01:59 Dose: 1,200 units/hr, 24 mls/hr Documented by: [id number] Cosigned by: [id number] Heparin Sodium (Porcine) 5,000 (units/ Syringe) 5 mls @ 10 mls/min IV NOW ONE Stop: 11/11/19 01:46 Last Admin: 11/11/19 01:59 Dose: 10 mls/min Documented by: [id number] Cosigned by: [id number] Sodium Chloride (Nss 1000ml) 1,000 mls @ 999 mls/hr IV .Q1H1M ONE Stop: 11/11/19 10:00 Last Infusion: 11/11/19 10:06 Dose: 0 mls/hr Documented by: [id number] Admin: 11/11/19 09:05 Dose: 999 mls/hr Documented by: [id number] Sodium Chloride (Nss 1000ml) 500 mls @ 999 mls/hr IV .Q31M ONE Stop: 11/11/19 12:08 Last Infusion: 11/11/19 12:15 Dose: 0 mls/hr Documented by: [id number] Admin: 11/11/19 11:44 Dose: 999 mls/hr Documented by: [id number] Albumin Human (Albumin 5%) 250 mls @ 500 mls/hr IV NOW STA Stop: 11/11/19 12:55 Last Infusion: 11/11/19 14:01 Dose: 0 mls/hr Documented by: [id number] Admin: 11/11/19 13:31 Dose: 500 mls/hr Documented by: [id number] Calcium Gluconate 2,000 mg/ (Sodium Chloride) 70 mls @ 280 mls/hr IV TODAY@1300 [facility] Stop: 11/11/19 13:14 Last Infusion: 11/11/19 14:18 Dose: 0 mls/hr Documented by: [id number] Admin: 11/11/19 14:03 Dose: 280 mls/hr Documented by: [id number] Vancomycin HCl 2,000 mg/ (Sodium Chloride) 540 mls @ 200 mls/hr IV NOW ONE Stop: 11/11/19 21:56 Last Infusion: 11/11/19 22:59 Dose: 0 mls/hr Documented by: [id number] Admin: 11/11/19 20:17 Dose: 200 mls/hr Documented by: [id number] Vancomycin HCl 1,000 mg/ (Sodium Chloride) 270 mls @ 125 mls/hr IV Q8H [facility] Stop: 11/26/19 03:59 Last Infusion: 11/13/19 05:35 Dose: 0 mls/hr Documented by: [id number] Admin: 11/13/19 03:25 Dose: 125 mls/hr Documented by: [id number] Infusion: 11/12/19 21:59 Dose: 0 mls/hr Documented by: [id number] Admin: 11/12/19 19:49 Dose: 125 mls/hr Documented by: [id number] Infusion: 11/12/19 13:35 Dose: 0 mls/hr Documented by: [id number] Admin: 11/12/19 11:17 Dose: 125 mls/hr Documented by: [id number] Infusion: 11/12/19 06:11 Dose: 0 mls/hr Documented by: [id number] Admin: 11/12/19 04:01 Dose: 125 mls/hr Documented by: [id number] Sodium Chloride (Nss 1000ml) 1,000 mls @ 999 mls/hr IV .Q1H1M [facility] Stop: 11/14/19 19:46 Last Infusion: 11/14/19 23:06 Dose: 0 mls/hr Documented by: [id number] Infusion: 11/14/19 21:31 Dose: 250 mls/hr Documented by: [id number] Infusion: 11/14/19 19:46 Dose: 0 mls/hr Documented by: [id number] Admin: 11/14/19 19:15 Dose: 999 mls/hr Documented by: [id number] Piperacillin Sod/Tazobactam (Sod 4.5 gm/ Dextrose) 120 mls @ 30 mls/hr IV Q8H [facility]; Protocol Stop: 11/25/19 03:59 Last Infusion: 11/15/19 07:18 Dose: 0 mls/hr Documented by: [id number] Admin: 11/15/19 03:18 Dose: 30 mls/hr Documented by: [id number] Norepinephrine Bitartrate 8 mg (/ Dextrose) 508 mls @ 15.526 mls/hr IV .Q24H [facility]; Protocol Stop: 12/14/19 22:14 Last Admin: 11/17/19 07:13 Dose: Not Given Documented by: [id number] Titration: 11/16/19 11:35 Dose: 0 mcg/kg/min, 0 mls/hr Documented by: [id number] Titration: 11/16/19 07:18 Dose: 0.05 mcg/kg/min, 15.5 mls/hr Documented by: [id number] Cosigned by: [id number] Admin: 11/16/19 00:40 Dose: Not Given Documented by: [id number] Titration: 11/15/19 22:22 Dose: 0.05 mcg/kg/min, 15.5 mls/hr Documented by: [id number] Titration: 11/15/19 19:00 Dose: 0.03 mcg/kg/min, 9.3 mls/hr Documented by: [id number] Cosigned by: [id number] Titration: 11/15/19 07:14 Dose: 0.03 mcg/kg/min, 9.3 mls/hr Documented by: [id number] Cosigned by: [id number] Titration: 11/15/19 04:28 Dose: 0.03 mcg/kg/min, 9.3 mls/hr Documented by: [id number] Titration: 11/15/19 03:18 Dose: 0.02 mcg/kg/min, 6.2 mls/hr Documented by: [id number] Titration: 11/15/19 01:58 Dose: 0.03 mcg/kg/min, 9.3 mls/hr Documented by: [id number] Titration: 11/15/19 01:34 Dose: 0.04 mcg/kg/min, 12.4 mls/hr Documented by: [id number] Admin: 11/14/19 22:50 Dose: 0.05 mcg/kg/min, 15.5 mls/hr Documented by: [id number] Cosigned by: [id number] Piperacillin Sod/Tazobactam (Sod 4.5 gm/ Dextrose) 120 mls @ 200 mls/hr IV NOW ONE; Protocol Stop: 11/14/19 23:05 Last Infusion: 11/14/19 23:07 Dose: 0 mls/hr Documented by: [id number] Admin: 11/14/19 22:21 Dose: 200 mls/hr Documented by: [id number] Parenteral Electrolytes (Normosol-R) 1,000 mls @ 125 mls/hr IV .Q8H [facility] Stop: 12/14/19 23:14 Last Infusion: 11/17/19 09:47 Dose: 0 mls/hr Documented by: [id number] Admin: 11/17/19 08:05 Dose: Not Given Documented by: [id number] Admin: 11/17/19 04:06 Dose: 125 mls/hr Documented by: [id number] Infusion: 11/17/19 04:06 Dose: 125 mls/hr Documented by: [id number] Admin: 11/16/19 20:09 Dose: 125 mls/hr Documented by: [id number] Infusion: 11/16/19 13:48 Dose: 125 mls/hr Documented by: [id number] Admin: 11/16/19 05:48 Dose: 125 mls/hr Documented by: [id number] Infusion: 11/16/19 05:48 Dose: 125 mls/hr Documented by: [id number] Admin: 11/15/19 21:58 Dose: 125 mls/hr Documented by: [id number] Infusion: 11/15/19 21:58 Dose: 125 mls/hr Documented by: [id number] Infusion: 11/15/19 19:00 Dose: 125 mls/hr Documented by: [id number] Admin: 11/15/19 14:30 Dose: 125 mls/hr Documented by: [id number] Infusion: 11/15/19 14:26 Dose: 125 mls/hr Documented by: [id number] Admin: 11/15/19 06:26 Dose: 125 mls/hr Documented by: [id number] Infusion: 11/15/19 06:26 Dose: 125 mls/hr Documented by: [id number] Admin: 11/14/19 23:29 Dose: 125 mls/hr Documented by: [id number] Albumin Human (Albumin 5%) 250 mls @ 500 mls/hr IV NOW ONE Stop: 11/15/19 00:14 Last Infusion: 11/15/19 00:21 Dose: 0 mls/hr Documented by: [id number] Admin: 11/14/19 23:51 Dose: 500 mls/hr Documented by: [id number] Phytonadione 2.5 mg/ Sodium (Chloride) 50.25 mls @ 100.5 mls/hr IV TODAY@0800 [facility] Stop: 11/15/19 08:29 Last Infusion: 11/15/19 08:32 Dose: 0 mls/hr Documented by: [id number] Admin: 11/15/19 08:02 Dose: 100.5 mls/hr Documented by: [id number] Amiodarone HCl/Dextrose (Nexterone / D5w) 150 mg in 100 mls @ 600 mls/hr IV NOW STA Stop: 11/15/19 08:33 Last Infusion: 11/15/19 09:20 Dose: 0 mls/hr Documented by: [id number] Cosigned by: [id number] Admin: 11/15/19 09:09 Dose: 600 mls/hr Documented by: [id number] Cosigned by: [id number] Amiodarone HCl/Dextrose (Nexterone / D5w) 360 mg in 200 mls @ 33.333 mls/hr IV ONE ONE Stop: 11/15/19 14:23 Last Infusion: 11/15/19 14:45 Dose: 0 mls/hr Documented by: [id number] Cosigned by: [id number] Admin: 11/15/19 09:09 Dose: 33.3 mls/hr Documented by: [id number] Cosigned by: [id number] Amiodarone HCl/Dextrose (Nexterone / D5w) 360 mg in 200 mls @ 16.667 mls/hr IV .Q12H [facility] Stop: 11/16/19 15:00 Last Admin: 11/16/19 15:05 Dose: Not Given Documented by: [id number] Infusion: 11/16/19 15:02 Dose: 0 mg/min, 0 mls/hr Documented by: [id number] Cosigned by: [id number] Infusion: 11/16/19 07:18 Dose: 0.5 mg/min, 16.7 mls/hr Documented by: [id number] Cosigned by: [id number] Admin: 11/16/19 01:58 Dose: 0.5 mg/min, 16.7 mls/hr Documented by: [id number] Cosigned by: [id number] Infusion: 11/16/19 01:58 Dose: 0.5 mg/min, 16.7 mls/hr Documented by: [id number] Cosigned by: [id number] Infusion: 11/15/19 19:00 Dose: 0.5 mg/min, 16.7 mls/hr Documented by: [id number] Cosigned by: [id number] Admin: 11/15/19 14:29 Dose: 0.5 mg/min, 16.7 mls/hr Documented by: [id number] Cosigned by: [id number] Cefazolin Sodium (Ancef 1000mg) 1,000 mg in 7.5 mls @ 2.5 mls/min IV PREOP ONE; Protocol Stop: 11/15/19 11:10 Last Admin: 11/15/19 12:10 Dose: Not Given Documented by: [id number] Potassium Chloride (K Maged / Wtr) 20 meq in 100 mls @ 50 mls/hr IV Q2H [facility] Stop: 11/16/19 09:44 Last Infusion: 11/16/19 10:10 Dose: 0 mls/hr Documented by: [id number] Admin: 11/16/19 08:07 Dose: 50 mls/hr Documented by: [id number] Infusion: 11/16/19 07:45 Dose: 50 mls/hr Documented by: [id number] Admin: 11/16/19 05:45 Dose: 50 mls/hr Documented by: [id number] Magnesium Sulfate/Dextrose (Magnesium Sulfate / D5w) 1 gm in 100 mls @ 50 mls/hr IV ONE ONE Stop: 11/16/19 07:29 Last Infusion: 11/16/19 07:45 Dose: 0 mls/hr Documented by: [id number] Admin: 11/16/19 05:43 Dose: 50 mls/hr Documented by: [id number] Potassium Phosphate 15 mmol/ (Sodium Chloride) 255 mls @ 88 mls/hr IV ONE ONE Stop: 11/16/19 08:53 Last Infusion: 11/16/19 08:45 Dose: 0 mls/hr Documented by: [id number] Admin: 11/16/19 05:48 Dose: 88 mls/hr Documented by: [id number] Hydrocortisone Sodium (Succinate 100 mg/ Syringe) 2 mls @ 4 mls/min IV NOW STA Stop: 11/16/19 09:58 Last Admin: 11/17/19 07:57 Dose: Not Given Documented by: [id number] Hydrocortisone Sodium (Succinate 50 mg/ Syringe) 1 mls @ 4 mls/min IV NOW STA Stop: 11/16/19 10:02 Last Admin: 11/16/19 10:52 Dose: 4 mls/min Documented by: [id number] Calcium Gluconate 1,000 mg/ (Sodium Chloride) 60 mls @ 240 mls/hr IV NOW ONE Stop: 11/16/19 23:44 Last Infusion: 11/16/19 23:45 Dose: 0 mls/hr Documented by: [id number] Admin: 11/16/19 23:27 Dose: 240 mls/hr Documented by: [id number] Calcium Gluconate 1,000 mg/ (Sodium Chloride) 60 mls @ 240 mls/hr IV ONE ONE Stop: 11/17/19 10:14 Last Infusion: 11/17/19 10:53 Dose: 0 mls/hr Documented by: [id number] Admin: 11/17/19 10:14 Dose: 240 mls/hr Documented by: [id number] Potassium Phosphate 21 mmol/ (Sodium Chloride) 507 mls @ 88 mls/hr IV ONE ONE Stop: 11/19/19 11:15 Last Infusion: 11/19/19 12:43 Dose: 0 mls/hr Documented by: [id number] Admin: 11/19/19 06:43 Dose: 88 mls/hr Documented by: [id number] Furosemide 10 mg/ Syringe 1 mls @ 4 mls/min IV ONE ONE Stop: 11/19/19 15:16 Last Admin: 11/19/19 15:43 Dose: 4 mls/min Documented by: [id number] Albumin Human (Albumin 5%) 250 mls @ 240 mls/hr IV Q1H [facility] Stop: 11/20/19 12:14 Last Infusion: 11/20/19 12:52 Dose: 0 mls/hr Documented by: [id number] Admin: 11/20/19 11:40 Dose: 240 mls/hr Documented by: [id number] Infusion: 11/20/19 11:34 Dose: 240 mls/hr Documented by: [id number] Admin: 11/20/19 10:31 Dose: 240 mls/hr Documented by: [id number] Phytonadione 2.5 mg/ Sodium (Chloride) 50.25 mls @ 100.5 mls/hr IV 1230 ONE Stop: 11/20/19 12:59 Last Infusion: 11/20/19 13:50 Dose: 0 mls/hr Documented by: [id number] Admin: 11/20/19 12:32 Dose: 100.5 mls/hr Documented by: [id number] Albumin Human (Albumin 5%) 250 mls @ 500 mls/hr IV ONE ONE Stop: 11/20/19 22:59 Last Infusion: 11/20/19 23:16 Dose: 0 mls/hr Documented by: [id number] Admin: 11/20/19 22:38 Dose: 500 mls/hr Documented by: [id number] Albumin Human (Albumin 5%) 250 mls @ 500 mls/hr IV ONE ONE Stop: 11/21/19 01:59 Last Infusion: 11/21/19 03:19 Dose: 0 mls/hr Documented by: [id number] Admin: 11/21/19 01:45 Dose: 500 mls/hr Documented by: [id number] Phytonadione 2.5 mg/ Sodium (Chloride) 50.25 mls @ 100.5 mls/hr IV ONE ONE Stop: 11/21/19 08:14 Last Infusion: 11/21/19 08:30 Dose: 0 mls/hr Documented by: [id number] Admin: 11/21/19 07:59 Dose: 100.5 mls/hr Documented by: [id number] Albumin Human (Albumin 25%) 50 mls @ 50 mls/hr IV TODAY@1515,1615 [facility] Stop: 11/21/19 17:14 Last Infusion: 11/21/19 17:08 Dose: 0 mls/hr Documented by: [id number] Admin: 11/21/19 16:04 Dose: 50 mls/hr Documented by: [id number] Infusion: 11/21/19 16:04 Dose: 50 mls/hr Documented by: [id number] Admin: 11/21/19 15:26 Dose: 50 mls/hr Documented by: [id number] Furosemide 20 mg/ Syringe 2 mls @ 4 mls/min IV ONE ONE Stop: 11/21/19 17:16 Last Admin: 11/21/19 17:09 Dose: 4 mls/min Documented by: [id number] Albumin Human (Albumin 5%) 250 mls @ 500 mls/hr IV ONE ONE Stop: 11/22/19 02:44 Last Infusion: 11/22/19 03:56 Dose: 0 mls/hr Documented by: [id number] Admin: 11/22/19 03:15 Dose: 500 mls/hr Documented by: [id number] Ceftriaxone Sodium 2,000 mg/ (Dextrose) 70 mls @ 100 mls/hr IV Q24H [facility]; Cj col Stop: 11/27/19 03:59 Last Admin: 11/22/19 05:05 Dose: Not Given Documented by: [id number] Albumin Human (Albumin 5%) 250 mls @ 500 mls/hr IV ONE ONE Stop: 11/22/19 04:59 Last Infusion: 11/22/19 05:25 Dose: 0 mls/hr Documented by: [id number] Admin: 11/22/19 04:53 Dose: 500 mls/hr Documented by: [id number] Norepinephrine Bitartrate 8 mg (/ Dextrose) 508 mls @ 51.328 mls/hr IV .Q9H54M [facility]; Protocol Stop: 12/22/19 04:29 Last Titration: 11/23/19 15:10 Dose: 0 mcg/kg/min, 0 mls/hr Documented by: [id number] Titration: 11/23/19 07:11 Dose: 0.16 mcg/kg/min, 51.3 mls/hr Documented by: [id number] Cosigned by: [id number] Titration: 11/23/19 06:57 Dose: 0.16 mcg/kg/min, 51.3 mls/hr Documented by: [id number] Titration: 11/23/19 06:49 Dose: 0.14 mcg/kg/min, 44.9 mls/hr Documented by: [id number] Titration: 11/23/19 03:54 Dose: 0.16 mcg/kg/min, 51.3 mls/hr Documented by: [id number] Admin: 11/23/19 03:00 Dose: Not Given Documented by: [id number] Admin: 11/23/19 02:51 Dose: 0.18 mcg/kg/min, 57.7 mls/hr Documented by: [id number] Cosigned by: [id number] Titration: 11/23/19 02:51 Dose: 0.18 mcg/kg/min, 57.7 mls/hr Documented by: [id number] Cosigned by: [id number] Titration: 11/23/19 00:16 Dose: 0.18 mcg/kg/min, 57.7 mls/hr Documented by: [id number] Titration: 11/22/19 23:47 Dose: 0.16 mcg/kg/min, 51.3 mls/hr Documented by: [id number] Titration: 11/22/19 22:49 Dose: 0.14 mcg/kg/min, 44.9 mls/hr Documented by: [id number] Cosigned by: [id number] Titration: 11/22/19 22:26 Dose: 0.12 mcg/kg/min, 38.5 mls/hr Documented by: [id number] Titration: 11/22/19 17:43 Dose: 0.1 mcg/kg/min, 32.1 mls/hr Documented by: [id number] Titration: 11/22/19 16:36 Dose: 0.09 mcg/kg/min, 28.9 mls/hr Documented by: [id number] Titration: 11/22/19 14:56 Dose: 0.07 mcg/kg/min, 22.5 mls/hr Documented by: [id number] Cosigned by: [id number] Admin: 11/22/19 12:36 Dose: 0.07 mcg/kg/min, 22.5 mls/hr Documented by: [id number] Cosigned by: [id number] Titration: 11/22/19 12:36 Dose: 0.07 mcg/kg/min, 22.5 mls/hr Documented by: [id number] Cosigned by: [id number] Titration: 11/22/19 12:20 Dose: 0.07 mcg/kg/min, 22.5 mls/hr Documented by: [id number] Titration: 11/22/19 11:00 Dose: 0.05 mcg/kg/min, 16 mls/hr Documented by: [id number] Titration: 11/22/19 10:15 Dose: 0.12 mcg/kg/min, 38.5 mls/hr Documented by: [id number] Titration: 11/22/19 09:36 Dose: 0.17 mcg/kg/min, 54.5 mls/hr Documented by: [id number] Titration: 11/22/19 07:45 Dose: 0.22 mcg/kg/min, 70.6 mls/hr Documented by: [id number] Titration: 11/22/19 07:00 Dose: 0.26 mcg/kg/min, 83.4 mls/hr Documented by: [id number] Titration: 11/22/19 06:08 Dose: 0.3 mcg/kg/min, 96.2 mls/hr Documented by: [id number] Titration: 11/22/19 06:04 Dose: 0.25 mcg/kg/min, 80.2 mls/hr Documented by: [id number] Admin: 11/22/19 04:53 Dose: 0.05 mcg/kg/min, 16 mls/hr Documented by: [id number] Cosigned by: [id number] Piperacillin Sod/Tazobactam (Sod 4.5 gm/ Dextrose) 120 mls @ 240 mls/hr IV NOW STA; Protocol Stop: 11/22/19 05:05 Last Infusion: 11/22/19 05:46 Dose: 0 mls/hr Documented by: [id number] Admin: 11/22/19 05:26 Dose: 240 mls/hr Documented by: [id number] Vancomycin HCl 2,000 mg/ (Sodium Chloride) 540 mls @ 200 mls/hr IV NOW STA Stop: 11/22/19 07:24 Last Infusion: 11/22/19 08:15 Dose: 0 mls/hr Documented by: [id number] Admin: 11/22/19 05:26 Dose: 200 mls/hr Documented by: [id number] Piperacillin Sod/Tazobactam (Sod 4.5 gm/ Dextrose) 120 mls @ 30 mls/hr IV Q8H [facility]; Protocol Stop: 12/02/19 09:59 Last Infusion: 11/24/19 06:12 Dose: 0 mls/hr Documented by: [id number] Admin: 11/24/19 02:13 Dose: 30 mls/hr Documented by: [id number] Infusion: 11/23/19 21:20 Dose: 0 mls/hr Documented by: [id number] Admin: 11/23/19 17:14 Dose: 30 mls/hr Documented by: [id number] Infusion: 11/23/19 14:29 Dose: 0 mls/hr Documented by: [id number] Admin: 11/23/19 10:09 Dose: 30 mls/hr Documented by: [id number] Infusion: 11/23/19 06:00 Dose: 0 mls/hr Documented by: [id number] Admin: 11/23/19 01:32 Dose: 30 mls/hr Documented by: [id number] Infusion: 11/22/19 21:59 Dose: 0 mls/hr Documented by: [id number] Admin: 11/22/19 17:59 Dose: 30 mls/hr Documented by: [id number] Infusion: 11/22/19 13:45 Dose: 0 mls/hr Documented by: [id number] Admin: 11/22/19 09:40 Dose: 30 mls/hr Documented by: [id number] Magnesium Sulfate/Dextrose (Magnesium Sulfate / D5w) 1 gm in 100 mls @ 50 mls/hr IV ONE ONE Stop: 11/22/19 07:46 Last Infusion: 11/22/19 08:10 Dose: 0 mls/hr Documented by: [id number] Admin: 11/22/19 06:03 Dose: 50 mls/hr Documented by: [id number] Potassium Phosphate 24 mmol/ (Sodium Chloride) 508 mls @ 125 mls/hr IV ONE ONE Stop: 11/22/19 10:33 Last Infusion: 11/22/19 11:00 Dose: 0 mls/hr Documented by: [id number] Admin: 11/22/19 06:38 Dose: 125 mls/hr Documented by: [id number] Vasopressin 20 units/ Sodium (Chloride) 101 mls @ 12.12 mls/hr IV .Q8H20M [facility] Stop: 12/22/19 07:59 Last Infusion: 11/24/19 13:42 Dose: 0 unit/min, 0 mls/hr Documented by: [id number] Infusion: 11/24/19 07:10 Dose: 0.04 unit/min, 12.1 mls/hr Documented by: [id number] Cosigned by: [id number] Admin: 11/24/19 04:03 Dose: 0.04 unit/min, 12.1 mls/hr Documented by: [id number] Cosigned by: [id number] Infusion: 11/24/19 03:55 Dose: 0.04 unit/min, 12.1 mls/hr Documented by: [id number] Cosigned by: [id number] Infusion: 11/23/19 23:20 Dose: 0.04 unit/min, 12.1 mls/hr Documented by: [id number] Cosigned by: [id number] Admin: 11/23/19 19:34 Dose: 0.04 unit/min, 12.1 mls/hr Documented by: [id number] Cosigned by: [id number] Infusion: 11/23/19 19:16 Dose: 0.04 unit/min, 12.1 mls/hr Documented by: [id number] Cosigned by: [id number] Infusion: 11/23/19 15:10 Dose: 0.04 unit/min, 12.1 mls/hr Documented by: [id number] Cosigned by: [id number] Admin: 11/23/19 10:55 Dose: 0.04 unit/min, 12.1 mls/hr Documented by: [id number] Cosigned by: [id number] Infusion: 11/23/19 09:51 Dose: 0.04 unit/min, 12.1 mls/hr Documented by: [id number] Cosigned by: [id number] Infusion: 11/23/19 07:11 Dose: 0.04 unit/min, 12.1 mls/hr Documented by: [id number] Cosigned by: [id number] Admin: 11/23/19 01:30 Dose: 0.04 unit/min, 12.1 mls/hr Documented by: [id number] Cosigned by: [id number] Infusion: 11/23/19 01:30 Dose: 0.04 unit/min, 12.1 mls/hr Documented by: [id number] Cosigned by: [id number] Infusion: 11/22/19 22:49 Dose: 0.04 unit/min, 12.1 mls/hr Documented by: [id number] Cosigned by: [id number] Admin: 11/22/19 17:59 Dose: 0.04 unit/min, 12.1 mls/hr Documented by: [id number] Cosigned by: [id number] Admin: 11/22/19 14:49 Dose: Not Given Documented by: [id number] Magnesium Sulfate/Dextrose (Magnesium Sulfate / D5w) 1 gm in 100 mls @ 50 mls/hr IV ONE ONE Stop: 11/22/19 09:47 Last Infusion: 11/22/19 11:15 Dose: 0 mls/hr Documented by: [id number] Admin: 11/22/19 09:04 Dose: 50 mls/hr Documented by: [id number] Furosemide 20 mg/ Syringe 2 mls @ 4 mls/min IV ONE ONE Stop: 11/22/19 09:16 Last Admin: 11/22/19 09:37 Dose: 4 mls/min Documented by: [id number] Magnesium Sulfate/Dextrose (Magnesium Sulfate / D5w) 1 gm in 100 mls @ 50 mls/hr IV ONE ONE Stop: 11/22/19 12:59 Last Infusion: 11/22/19 13:22 Dose: 0 mls/hr Documented by: [id number] Admin: 11/22/19 11:22 Dose: 50 mls/hr Documented by: [id number] Phytonadione 2.5 mg/ Sodium (Chloride) 50.25 mls @ 100.5 mls/hr IV ONE ONE Stop: 11/22/19 10:59 Last Infusion: 11/22/19 11:10 Dose: 0 mls/hr Documented by: [id number] Admin: 11/22/19 10:37 Dose: 100.5 mls/hr Documented by: [id number] Potassium Phosphate 40 mmol/ (Sodium Chloride) 1,013.3333 mls @ 100 mls/hr IV ONE ONE Stop: 11/22/19 20:37 Last Infusion: 11/23/19 01:22 Dose: 0 mls/hr Documented by: [id number] Infusion: 11/22/19 20:46 Dose: 0 mls/hr Documented by: [id number] Admin: 11/22/19 10:38 Dose: 100 mls/hr Documented by: [id number] Albumin Human (Albumin 25%) 50 mls @ 50 mls/hr IV 1845 ONE Stop: 11/22/19 19:44 Last Infusion: 11/22/19 19:57 Dose: 0 mls/hr Documented by: [id number] Admin: 11/22/19 18:57 Dose: 50 mls/hr Documented by: [id number] Calcium Gluconate 1,000 mg/ (Sodium Chloride) 60 mls @ 240 mls/hr IV 0630 [facility] Stop: 11/23/19 06:44 Last Infusion: 11/23/19 06:57 Dose: 0 mls/hr Documented by: [id number] Admin: 11/23/19 06:39 Dose: 240 mls/hr Documented by: [id number] Vancomycin HCl 1,000 mg/ (Sodium Chloride) 270 mls @ 125 mls/hr IV ONE ONE Stop: 11/23/19 09:54 Last Infusion: 11/23/19 10:20 Dose: 0 mls/hr Documented by: [id number] Admin: 11/23/19 08:05 Dose: 125 mls/hr Documented by: [id number] Albumin Human (Albumin 25%) 50 mls @ 50 mls/hr IV BID [facility] Stop: 11/26/19 08:59 Last Infusion: 11/25/19 22:57 Dose: 0 mls/hr Documented by: [id number] Admin: 11/25/19 21:57 Dose: 50 mls/hr Documented by: [id number] Infusion: 11/25/19 09:41 Dose: 0 mls/hr Documented by: [id number] Admin: 11/25/19 08:23 Dose: 50 mls/hr Documented by: [id number] Infusion: 11/23/19 23:18 Dose: 0 mls/hr Documented by: [id number] Admin: 11/23/19 21:19 Dose: 50 mls/hr Documented by: [id number] Infusion: 11/23/19 09:15 Dose: 0 mls/hr Documented by: [id number] Admin: 11/23/19 08:07 Dose: 50 mls/hr Documented by: [id number] Potassium Chloride (K Maged / Wtr) 20 meq in 100 mls @ 50 mls/hr IV Q2H [facility] Stop: 11/23/19 13:59 Last Infusion: 11/23/19 15:10 Dose: 0 mls/hr Documented by: [id number] Admin: 11/23/19 12:38 Dose: 50 mls/hr Documented by: [id number] Infusion: 11/23/19 12:08 Dose: 50 mls/hr Documented by: [id number] Admin: 11/23/19 10:08 Dose: 50 mls/hr Documented by: [id number] Phytonadione 2.5 mg/ Sodium (Chloride) 50.25 mls @ 100.5 mls/hr IV ONE ONE Stop: 11/23/19 10:44 Last Infusion: 11/23/19 11:30 Dose: 0 mls/hr Documented by: [id number] Admin: 11/23/19 10:56 Dose: 100.5 mls/hr Documented by: [id number] Potassium Phosphate 15 mmol/ (Sodium Chloride) 255 mls @ 88 mls/hr IV ONE ONE Stop: 11/23/19 13:23 Last Infusion: 11/23/19 15:10 Dose: 0 mls/hr Documented by: [id number] Admin: 11/23/19 11:33 Dose: 88 mls/hr Documented by: [id number] Magnesium Sulfate/Dextrose (Magnesium Sulfate / D5w) 1 gm in 100 mls @ 50 mls/hr IV Q2H [facility] Stop: 11/24/19 13:59 Last Infusion: 11/24/19 15:11 Dose: 0 mls/hr Documented by: [id number] Admin: 11/24/19 13:06 Dose: 50 mls/hr Documented by: [id number] Infusion: 11/24/19 13:04 Dose: 50 mls/hr Documented by: [id number] Admin: 11/24/19 11:04 Dose: 50 mls/hr Documented by: [id number] Infusion: 11/24/19 10:08 Dose: 50 mls/hr Documented by: [id number] Admin: 11/24/19 08:08 Dose: 50 mls/hr Documented by: [id number] Potassium Chloride (K Maged / Wtr) 20 meq in 100 mls @ 50 mls/hr IV Q2H [facility] Stop: 11/24/19 13:59 Last Admin: 11/24/19 13:44 Dose: Not Given Documented by: [id number] Infusion: 11/24/19 13:43 Dose: 0 mls/hr Documented by: [id number] Admin: 11/24/19 08:08 Dose: 50 mls/hr Documented by: [id number] Ertapenem 1,000 mg/ Sodium (Chloride) 60 mls @ 120 mls/hr IV Q24H [facility] Stop: 12/04/19 07:59 Last Infusion: 11/25/19 08:58 Dose: 0 mls/hr Documented by: [id number] Admin: 11/25/19 08:22 Dose: 120 mls/hr Documented by: [id number] Infusion: 11/24/19 09:22 Dose: 0 mls/hr Documented by: [id number] Admin: 11/24/19 08:32 Dose: 120 mls/hr Documented by: [id number] Potassium Acetate 20 meq/ (Sodium Chloride) 110 mls @ 55 mls/hr IV Q2H [facility] Stop: 11/24/19 14:59 Last Infusion: 11/24/19 15:11 Dose: 0 mls/hr Documented by: [id number] Admin: 11/24/19 13:06 Dose: 55 mls/hr Documented by: [id number] Infusion: 11/24/19 13:06 Dose: 55 mls/hr Documented by: [id number] Admin: 11/24/19 11:30 Dose: 55 mls/hr Documented by: [id number] Calcium Gluconate 2,000 mg/ (Sodium Chloride) 70 mls @ 280 mls/hr IV NOW ONE Stop: 11/24/19 10:44 Last Infusion: 11/24/19 13:41 Dose: 0 mls/hr Documented by: [id number] Admin: 11/24/19 11:29 Dose: 280 mls/hr Documented by: [id number] Furosemide 40 mg/ Syringe 4 mls @ 4 mls/min IV ONE ONE Stop: 11/24/19 18:01 Last Admin: 11/24/19 20:48 Dose: 4 mls/min Documented by: [id number] Potassium Phosphate 15 mmol/ (Sodium Chloride) 255 mls @ 88 mls/hr IV ONE ONE Stop: 11/24/19 20:53 Last Infusion: 11/24/19 20:54 Dose: 0 mls/hr Documented by: [id number] Admin: 11/24/19 18:00 Dose: 88 mls/hr Documented by: [id number] Potassium Phosphate 15 mmol/ (Sodium Chloride) 255 mls @ 88 mls/hr IV ONE ONE Stop: 11/25/19 13:23 Last Infusion: 11/25/19 13:40 Dose: 0 mls/hr Documented by: [id number] Admin: 11/25/19 10:12 Dose: 88 mls/hr Documented by: [id number] Potassium Chloride (K Maged / Wtr) 20 meq in 100 mls @ 50 mls/hr IV Q2H [facility]; Protocol Stop: 11/25/19 19:29 Last Infusion: 11/25/19 19:08 Dose: 0 mls/hr Documented by: [id number] Admin: 11/25/19 17:08 Dose: 50 mls/hr Documented by: [id number] Infusion: 11/25/19 17:08 Dose: 50 mls/hr Documented by: [id number] Admin: 11/25/19 15:22 Dose: 50 mls/hr Documented by: [id number] Lorazepam (Ativan) 2 mg in 4 mls @ 4 mls/min IV NOW STA Stop: 11/25/19 20:45 Last Admin: 11/25/19 21:13 Dose: Not Given Documented by: [id number] Levetiracetam 2,000 mg/ Sodium (Chloride) 270 mls @ 999 mls/hr IV NOW STA; Protocol Stop: 11/25/19 20:59 Last Infusion: 11/25/19 21:12 Dose: 0 mls/hr Documented by: [id number] Admin: 11/25/19 20:55 Dose: 999 mls/hr Documented by: [id number] Levetiracetam 500 mg/ Sodium (Chloride) 105 mls @ 420 mls/hr IV Q12H [facility]; Protocol Stop: 12/26/19 08:59 Last Infusion: 11/26/19 08:54 Dose: 0 mls/hr Documented by: [id number] Admin: 11/26/19 08:23 Dose: 420 mls/hr Documented by: [id number] Potassium Chloride (K Maged / Wtr) 20 meq in 100 mls @ 50 mls/hr IV Q2H [facility] Stop: 11/26/19 10:05 Last Infusion: 11/26/19 10:12 Dose: 0 mls/hr Documented by: [id number] Admin: 11/26/19 08:24 Dose: 50 mls/hr Documented by: [id number] Infusion: 11/26/19 08:24 Dose: 50 mls/hr Documented by: [id number] Admin: 11/26/19 06:36 Dose: 50 mls/hr Documented by: [id number] Potassium Chloride (K Maged / Wtr) 20 meq in 100 mls @ 50 mls/hr IV ONE ONE Stop: 11/27/19 08:40 Last Infusion: 11/27/19 10:33 Dose: 0 mls/hr Documented by: [id number] Admin: 11/27/19 08:11 Dose: 50 mls/hr Documented by: [id number] Magnesium Sulfate/Dextrose (Magnesium Sulfate / D5w) 1 gm in 100 mls @ 50 mls/hr IV ONE ONE Stop: 11/27/19 08:40 Last Infusion: 11/27/19 10:33 Dose: 0 mls/hr Documented by: [id number] Admin: 11/27/19 08:11 Dose: 50 mls/hr Documented by: [id number] Iodixanol (Visipaque) 10 ml IV UD ONE Stop: 11/15/19 12:45 Last Admin: 11/15/19 12:45 Dose: 10 ml Documented by: [id number] Ioversol (Optiray 320 125ml) 118 ml IV ONCE ONE Stop: 11/10/19 22:38 Last Admin: 11/10/19 22:38 Dose: 1 ml Documented by: [id number] Ioversol (Ioversol 100ml) 100 ml IV ONCE ONE Stop: 11/22/19 03:22 Last Admin: 11/22/19 03:22 Dose: 93 ml Documented by: [id number] Lactobacillus Acidophilus (Lactobacillus Acidophilus (Floranex) Tab) 4 tab PO QDL [facility] Stop: 12/11/19 11:29 Last Admin: 11/14/19 12:03 Dose: 4 tab Documented by: [id number] Admin: 11/13/19 12:19 Dose: 4 tab Documented by: [id number] Admin: 11/12/19 08:07 Dose: 4 tab Documented by: [id number] Admin: 11/11/19 08:40 Dose: 4 tab Documented by: [id number] Lidocaine HCl (Lidocaine Hcl 1% 20 Ml Vial) Confirm Administered Dose 20 ml .ROUTE .STK-MED ONE Stop: 11/15/19 11:27 Last Admin: 11/15/19 12:45 Dose: 4 ml Documented by: [id number] Loperamide HCl (Loperamide Hcl 2 Mg Cap) 4 mg PO NOW STA Stop: 11/22/19 18:34 Last Admin: 11/22/19 18:57 Dose: 4 mg Documented by: [id number] Lorazepam (Lorazepam 2 Mg/4 Ml Vial) Confirm Administered Dose 2 mg .ROUTE .STK- MED ONE Stop: 11/25/19 20:40 Last Admin: 11/25/19 20:41 Dose: 2 mg Documented by: [id number] Metoprolol Succinate (Metoprolol Succ 25mg Ext Rel Tab) 25 mg PO QPM [facility] Stop: 12/12/19 20:59 Last Admin: 11/14/19 21:31 Dose: Not Given Documented by: [id number] Admin: 11/13/19 20:04 Dose: Not Given Documented by: [id number] Admin: 11/12/19 19:43 Dose: 25 mg Documented by: [id number] Metoprolol Tartrate (Metoprolol Tartrate 25 Mg Tab) 25 mg PO BID [facility] Stop: 12/10/19 20:59 Last Admin: 11/11/19 08:39 Dose: Not Given Documented by: [id number] Admin: 11/10/19 20:33 Dose: 25 mg Documented by: [id number] Metoprolol Tartrate (Metoprolol Tartrate 25 Mg Tab) 12.5 mg PO Q8 [facility] Stop: 12/11/19 20:59 Last Admin: 11/12/19 08:06 Dose: 12.5 mg Documented by: [id number] Admin: 11/12/19 05:32 Dose: Not Given Documented by: [id number] Admin: 11/11/19 20:21 Dose: Not Given Documented by: [id number] Metoprolol Tartrate (Metoprolol Tartrate 1 Mg/Ml Vial) 2.5 mg IV NOW STA Stop: 11/16/19 11:46 Last Admin: 11/16/19 11:51 Dose: 2.5 mg Documented by: [id number] Metoprolol Tartrate (Metoprolol Tartrate 1 Mg/Ml Vial) 2.5 mg IV NOW STA Stop: 11/16/19 11:53 Last Admin: 11/16/19 12:52 Dose: 2.5 mg Documented by: [id number] Metoprolol Tartrate (Metoprolol Tartrate 25 Mg Tab) 12.5 mg PO BID [facility] Stop: 12/17/19 09:59 Last Admin: 11/20/19 08:05 Dose: 12.5 mg Documented by: [id number] Admin: 11/19/19 20:46 Dose: 12.5 mg Documented by: [id number] Admin: 11/19/19 09:00 Dose: Not Given Documented by: [id number] Admin: 11/18/19 20:33 Dose: Not Given Documented by: [id number] Admin: 11/18/19 08:06 Dose: Not Given Documented by: [id number] Admin: 11/17/19 21:07 Dose: 12.5 mg Documented by: [id number] Admin: 11/17/19 10:52 Dose: 12.5 mg Documented by: [id number] Midodrine (Midodrine Hcl 2.5 Mg Tab) 5 mg PO TID@0800,1200,1700 [facility] Stop: 12/18/19 11:59 Last Admin: 11/20/19 17:53 Dose: 5 mg Documented by: [id number] Admin: 11/20/19 12:32 Dose: 5 mg Documented by: [id number] Admin: 11/20/19 08:05 Dose: 5 mg Documented by: [id number] Admin: 11/19/19 17:14 Dose: 5 mg Documented by: [id number] Admin: 11/19/19 12:09 Dose: 5 mg Documented by: [id number] Admin: 11/19/19 08:06 Dose: 5 mg Documented by: [id number] Admin: 11/18/19 17:31 Dose: 5 mg Documented by: [id number] Admin: 11/18/19 09:40 Dose: 5 mg Documented by: [id number] Midodrine (Midodrine Hcl 2.5 Mg Tab) 7.5 mg PO TID@0800,1200,1700 [facility] Stop: 12/21/19 07:59 Last Admin: 11/27/19 08:12 Dose: 7.5 mg Documented by: [id number] Admin: 11/26/19 16:49 Dose: 7.5 mg Documented by: [id number] Admin: 11/26/19 11:59 Dose: 7.5 mg Documented by: [id number] Admin: 11/26/19 08:23 Dose: 7.5 mg Documented by: [id number] Admin: 11/25/19 16:43 Dose: 7.5 mg Documented by: [id number] Admin: 11/25/19 11:04 Dose: 7.5 mg Documented by: [id number] Admin: 11/25/19 08:23 Dose: 7.5 mg Documented by: [id number] Admin: 11/24/19 16:50 Dose: 7.5 mg Documented by: [id number] Admin: 11/24/19 13:04 Dose: 7.5 mg Documented by: [id number] Admin: 11/24/19 08:08 Dose: 7.5 mg Documented by: [id number] Admin: 11/23/19 17:07 Dose: 7.5 mg Documented by: [id number] Admin: 11/23/19 11:47 Dose: 7.5 mg Documented by: [id number] Admin: 11/23/19 08:11 Dose: 7.5 mg Documented by: [id number] Admin: 11/22/19 18:27 Dose: 7.5 mg Documented by: [id number] Admin: 11/22/19 12:36 Dose: 7.5 mg Documented by: [id number] Admin: 11/22/19 07:55 Dose: 7.5 mg Documented by: [id number] Admin: 11/21/19 16:04 Dose: 7.5 mg Documented by: [id number] Admin: 11/21/19 12:04 Dose: 7.5 mg Documented by: [id number] Admin: 11/21/19 07:59 Dose: 7.5 mg Documented by: [id number] Mirtazapine (Mirtazapine Tab 15 Mg Tab) 15 mg PO PM@2030 [facility] Stop: 12/10/19 20:29 Last Admin: 11/21/19 20:17 Dose: 15 mg Documented by: [id number] Admin: 11/20/19 21:01 Dose: 15 mg Documented by: [id number] Admin: 11/19/19 20:47 Dose: 15 mg Documented by: [id number] Admin: 11/18/19 20:33 Dose: 15 mg Documented by: [id number] Admin: 11/17/19 21:07 Dose: 15 mg Documented by: [id number] Admin: 11/16/19 20:10 Dose: 15 mg Documented by: [id number] Admin: 11/15/19 20:42 Dose: 15 mg Documented by: [id number] Admin: 11/14/19 22:08 Dose: Not Given Documented by: [id number] Admin: 11/13/19 20:00 Dose: 15 mg Documented by: [id number] Admin: 11/12/19 19:42 Dose: 15 mg Documented by: [id number] Admin: 11/11/19 20:19 Dose: 15 mg Documented by: [id number] Admin: 11/10/19 20:33 Dose: 15 mg Documented by: [id number] Miscellaneous (Amiodarone Infusion~Stop Order) 1 ea N/A TODAY@1500 ONE Stop: 11/16/19 15:01 Last Admin: 11/16/19 15:02 Dose: 1 ea Documented by: [id number] Morphine Sulfate (Morphine Sulfate 2 Mg/Ml Carp) 1 mg IV NOW STA Stop: 11/16/19 02:27 Last Admin: 11/16/19 02:34 Dose: 1 mg Documented by: [id number] Morphine Sulfate (Morphine Sulfate 2 Mg/Ml Carp) Confirm Administered Dose 2 mg .ROUTE .STK-MED ONE Stop: 11/16/19 02:30 Last Admin: 11/16/19 02:33 Dose: Not Given Documented by: [id number] Multivitamins (Multivitamin Tab) 1 tab PO DAILY HARLEEN Stop: 12/11/19 08:59 Last Admin: 11/22/19 14:57 Dose: Not Given Documented by: [id number] Admin: 11/21/19 07:58 Dose: 1 tab Documented by: [id number] Admin: 11/20/19 08:06 Dose: 1 tab Documented by: [id number] Admin: 11/19/19 08:05 Dose: 1 tab Documented by: [id number] Admin: 11/18/19 08:06 Dose: 1 tab Documented by: [id number] Admin: 11/17/19 08:07 Dose: 1 tab Documented by: [id number] Admin: 11/16/19 08:37 Dose: 1 tab Documented by: [id number] Admin: 11/15/19 09:11 Dose: Not Given Documented by: [id number] Admin: 11/14/19 07:47 Dose: 1 tab Documented by: [id number] Admin: 11/13/19 07:46 Dose: 1 tab Documented by: [id number] Admin: 11/12/19 08:08 Dose: 1 tab Documented by: [id number] Admin: 11/11/19 08:40 Dose: 1 tab Documented by: [id number] Nutritional Formula (Peptamen Intense Vhp 1.0 Vitaliy 1,000 Ml Bag) 1,000 ml OG .CONTINUOUS HARLEEN; Protocol Stop: 12/21/19 10:59 Last Admin: 11/23/19 17:33 Dose: 1,000 ml Documented by: [id number] Admin: 11/21/19 12:02 Dose: 1,000 ml Documented by: [id number] Nutritional Formula (Prosource No Carb 30 Ml/Pkt) 30 ml PO ONE ONE Stop: 11/25/19 14:31 Last Admin: 11/25/19 15:23 Dose: 30 ml Documented by: [id number] Ondansetron HCl (Ondansetron 4 Mg Od Tab) 4 mg PO Q6H PRN PRN Reason: Nausea Stop: 12/10/19 16:18 Last Admin: 11/21/19 12:40 Dose: 4 mg Documented by: [id number] Pantoprazole Sodium (Pantoprazole 40 Mg Tab) 40 mg PO QAM HARLEEN Stop: 12/11/19 08:59 Last Admin: 11/22/19 14:58 Dose: Not Given Documented by: [id number] Admin: 11/21/19 07:58 Dose: 40 mg Documented by: [id number] Admin: 11/20/19 08:06 Dose: 40 mg Documented by: [id number] Admin: 11/19/19 08:06 Dose: 40 mg Documented by: [id number] Admin: 11/18/19 08:06 Dose: 40 mg Documented by: [id number] Admin: 11/17/19 08:07 Dose: 40 mg Documented by: [id number] Admin: 11/16/19 08:37 Dose: 40 mg Documented by: [id number] Admin: 11/15/19 09:11 Dose: Not Given Documented by: [id number] Admin: 11/14/19 07:47 Dose: 40 mg Documented by: [id number] Admin: 11/13/19 07:46 Dose: 40 mg Documented by: [id number] Admin: 11/12/19 08:07 Dose: 40 mg Documented by: [id number] Admin: 11/11/19 08:40 Dose: 40 mg Documented by: [id number] Potassium Chloride (Potassium Chloride 20 Meq Tabcr) 40 meq PO NOW STA Stop: 11/11/19 13:28 Last Admin: 11/11/19 14:55 Dose: 40 meq Documented by: [id number] Potassium Chloride (Potassium Chloride 20 Meq Tabcr) 20 meq PO BID HARLEEN Stop: 11/15/19 09:01 Last Admin: 11/15/19 09:11 Dose: Not Given Documented by: [id number] Admin: 11/14/19 22:08 Dose: Not Given Documented by: [id number] Admin: 11/14/19 07:47 Dose: 20 meq Documented by: [id number] Admin: 11/13/19 20:02 Dose: 20 meq Documented by: [id number] Admin: 11/13/19 07:45 Dose: 20 meq Documented by: [id number] Admin: 11/12/19 19:42 Dose: 20 meq Documented by: [id number] Saccharomyces Boulardii (Saccharomyces Boulardii 250 Mg Cap) 250 mg PO BID HARLEEN Stop: 12/10/19 20:59 Last Admin: 11/15/19 09:11 Dose: Not Given Documented by: [id number] Admin: 11/14/19 22:08 Dose: Not Given Documented by: [id number] Admin: 11/14/19 07:47 Dose: 250 mg Documented by: [id number] Admin: 11/13/19 20:01 Dose: 250 mg Documented by: [id number] Admin: 11/13/19 07:46 Dose: 250 mg Documented by: [id number] Admin: 11/12/19 19:41 Dose: 250 mg Documented by: [id number] Admin: 11/12/19 08:08 Dose: 250 mg Documented by: [id number] Admin: 11/11/19 20:18 Dose: 250 mg Documented by: [id number] Admin: 11/11/19 08:39 Dose: 250 mg Documented by: [id number] Admin: 11/10/19 20:33 Dose: 250 mg Documented by: [id number] Thiamine HCl (Thiamine Hcl 100 Mg Tab) [facility] [place] Stop: 12/11/19 08:59 Last Admin: 11/22/19 07:56 Dose: 100 mg Documented by: [id number] Admin: 11/21/19 07:59 Dose: 100 mg Documented by: [id number] Admin: 11/20/19 08:06 Dose: 100 mg Documented by: [id number] Admin: 11/19/19 08:06 Dose: 100 mg Documented by: [id number] Admin: 11/18/19 08:06 Dose: 100 mg Documented by: [id number] Admin: 11/17/19 08:07 Dose: 100 mg Documented by: [id number] Admin: 11/16/19 08:38 Dose: 100 mg Documented by: [id number] Admin: 11/15/19 09:12 Dose: Not Given Documented by: [id number] Admin: 11/14/19 07:50 Dose: 100 mg Documented by: [id number] Admin: 11/13/19 07:46 Dose: 100 mg Documented by: [id number] Admin: 11/12/19 08:08 Dose: 100 mg Documented by: [id number] Admin: 11/11/19 08:40 Dose: 100 mg Documented by: [id number] Warfarin Sodium (Warfarin Sod 5 Mg Tab) 5 mg PO NOW ONE Stop: 11/13/19 09:08 Last Admin: 11/13/19 10:21 Dose: 5 mg Documented by: [id number] Description This is a 21 electrode EEG with a single channel dedicated to limited EKG. The electrodes were placed in accordance with the International 10-20 system. History: sepsis 2/2 UTI, seizure Rx: ativan Start/Stop: 6:06am/6:26am Attending reading: Karen Avendaño EEG Description: EEG background: Background was intermixed 5-7 Hz theta slowing in the left hemisphere, 8-12 Hz alpha in the right hemisphere, with overriding very brief, 1-5 second episodes of 2-3 Hz generalized delta slowing (frontal predominant) with two instances of very brief 1 second generalized attenuation noted in the latter half of the recording. No clear well formed posterior dominant rhythm was observed. The EEG is nearly continuous. There is variability and reactivity present. Activation and reactivity: Photic stimulation performed without any abnormalities noted. No photic driving observed. Hyperventilation was not performed. Sleep: No sleep architecture was noted. Epileptiform discharges: No clear epileptiform discharges were observed. Rhythmic and periodic patterns: None Seizures: None Impression: This was an abnormal EEG given the left sided focal slowing (likely related to prior left MCA territory stroke), generalized slowing with very brief periods of attenuation consistent with a moderate toxic/metabolic encephalopathy. No clear seizures or epileptiform discharges were seen. [facility] EEG Procedure Codes Indication for Procedure (1) New onset seizure: (2) Sepsis: Neurology Neurology: [id number] EEG include record awake & drowsy
--- NOTE | 2019-11-27 18:15 | Hospitalist Progress Note ---
Date of Service November 27, 2019 Assessment & Plan (1) Retroperitoneal hemorrhage: This patient is a 49-year-old female with a Hx of stroke in May 2019, Crohn's disease, depression, with LLE DVT and multiple bilateral PEs. She has had a prolonged hospital stay due to a spontaneous retroperitoneal hemorrhage and septic shock secondary to a UTI. Her course has also been complicated by profound protein calorie malnutrition and hypoalbuminemia with anasarca and new onset seizure on 11/24. Sepsis with Septic Shock -Resolving -continue abx treatment per ICU recommendations Retroperitoneal Bleed -Hgb stable -follow CBC Seizure -new onset -hold ertapenem as potential cause -EEG ordered today -appreciate neurology consult PE -IVC filter in place currently Anasarca -due to profound hypoalbuminemia Hemiplegia and hemiparesis following cerebral infarction affecting right dominant side: - secondary to large left MCA stroke and small right MCA stroke with asymptomatic hemorrhagic conversion as per notes from [facility] GERD (gastroesophageal reflux disease): - Continue pantoprazole through the IV Major depressive disorder: -Continue fluoxetine, mirtazapine CODE STATUS: DNR/DNI Admission and Anticipated Discharge Date Admission Date: November 11, 2019 Supervising Physician Co-Signing Physician Notes I personally examined the patient and verified all armstrong points of history and exam, discussed case, and agree with decision making with Dr Ann. case d/w ICU and palliative. pt sleeping comfortably. vitals noted nad heent nc at mmm breathing unlabored NGT wtihout breakdown. shock/UTI/sepsis/retroperitoneal bleed/seizure - continue current care. d/w palliative - pt opted for DNR status and is considering ?ongoing care vs comfort measures only. does appear comfortable at this time and quite reasonable to continue current care as she weighs her options otherwise as above Subjective Pt laying in bed, nonverbal. responsive to questions by nodding, quickly falls back asleep. Review of Systems Review of Systems: Unobtainable due to cognitive status Physical Exam Physical Exam: General: Laying in bed, No acute distress Skin: No noted rashes or bruises Psych: Cannot be determined Neuro: lethargic HEENT: NC/AT Chest: Nontender to palpation. CV: RRR, Normal s1, s2. No murmurs appreciated Resp: Breath sounds clear bilaterally, no increased effort of breathing. Abdomen: Soft, nontender, nondistended. Extremities: ++ edema in lower extremities bilaterally. Results & Data Results & Data ([facility]) Vital Signs (Past 12 Hours) Vital Signs Pulse 11/27/19 12:00 106 H 11/27/19 07:38 106 H Resident Activity Tracking Resident Involvement: Resident Care Provided Care Provided: Adult Hospital Medicine
--- NOTE | 2019-11-27 18:30 | Billing Data ---
Date of Service November 27, 2019 Coding Level of Care Code 88703 Subseq Hosp Care Lvl 1
[2019-11-27] MEDS: PROSOURCE NO CARB 30 ML/PKT NG SCH (18:37)
[2019-11-27 20:31] LABS: HIV 1 RNA PCR Copies/ML <20 Copies/mL; HIV-1 RNA Log Copies/mL <1.30 Log cps/mL
[2019-11-27] MEDS: MIRTAZAPINE TAB 15 MG TAB NG SCH (20:57)
[2019-11-27] MEDS: ATORVASTATIN 40 MG TAB NG SCH (20:58)
[2019-11-28] MEDS: CEFTOLOZANE/TAZOBACTAM 1,500 MG in DEXTROSE 5% 100 ML IV SCH ×3 (00:41→15:24)
[2019-11-28] MEDS: LOPERAMIDE LIQUID 120 ML BOTTLE PO PRN (01:03)
[2019-11-28 04:27] LABS: Hematocrit (blood only) 28.9 % (37-47); Hemoglobin 9.6 g/dL (12.0-16.0); Mean Corpuscular Hemoglobin 30.5 pg (25-34); Mean Corpuscular Hgb Conc 33.2 g/dL (32-36); Mean Corpuscular Volume 91.7 fL (80-100); Mean Platelet Volume 12.8 fL (7.4-10.4); Platelet Count 136 K/uL (130-400); RDW Coefficient of Variation 17.9 % (11.5-14.5); RDW Standard Deviation 59.1 fL (36.4-46.3); Red Blood Count 3.15 M/uL (4.2-5.4); White Blood Count 12.95 K/uL (4.8-10.8)
[2019-11-28 04:50] LABS: BUN Creatinine Ratio 14.2 (10-20); Calcium 7.3 mg/dl (8.5-10.1); Creatinine Clr Calc Pharmacy 101.7 ml/min; Est GFR (African American) 116.8; Est GFR (Non-African American) 100.8; Magnesium 2.1 mg/dl (1.8-2.4); Phosphorus 3.8 mg/dl (2.5-4.9); Potassium 3.4 mmol/L (3.5-5.1)
[2019-11-28 04:56] LABS: Basophils # (auto) 0.01 K/uL (0-0.2); Basophils % (auto) 0.1 %; Eosinophils # (auto) 0.17 K/uL (0-0.5); Eosinophils % (auto) 1.3 %; Immature Granulocytes # (auto) 0.09 K/uL (0.00-0.02); Immature Granulocytes % (auto) 0.7 %; Lymphocytes % (auto) 3.1 %; Monocytes # (auto) 0.29 K/uL (0.11-0.59); Monocytes % (auto) 2.2 %; Neutrophils # (auto) 11.99 K/uL (1.4-6.5); Neutrophils % (auto) 92.6 %
[2019-11-28] MEDS: POTASSIUM CHLORIDE / WTR 20 MEQ/100 ML PLCT IV SCH ×2 (06:03→08:56)
[2019-11-28] MEDS: PEPTAMEN INTENSE VHP 1.0 CAL 1,000 ML BAG GT SCH (06:28)
[2019-11-28] MEDS: MAGNESIUM OXIDE 400 MG TAB PO SCH ×2 (08:57→21:40)
[2019-11-28] MEDS: MULTI VIT W/MINERALS LIQUID 15 ML UDP NG SCH (08:57)
[2019-11-28] MEDS: FERROUS SULFATE 325 MG/7.4 ML UDP PO SCH (08:58)
[2019-11-28] MEDS: ASPIRIN 81 MG CHEW NG SCH (08:58)
[2019-11-28] MEDS: FLUOXETINE HCL 20 MG/5 ML UDP NG SCH (08:58)
[2019-11-28] MEDS: MIDODRINE HCL 10 MG TAB PO SCH ×3 (08:58→16:39)
[2019-11-28] MEDS: POTASSIUM CHLORIDE 20 MEQ/15 ML UDC PO SCH ×2 (08:59→21:39)
[2019-11-28] MEDS: THIAMINE HCL 100 MG TAB NG SCH ×2 (08:59→21:41)
[2019-11-28] MEDS: ASCORBIC ACID 500 MG TAB PO SCH (08:59)
[2019-11-28] MEDS ORDERED: MULTI VIT W/MINERALS LIQUID 15 ML UDP PO SCH (09:00)
[2019-11-28] MEDS: POT PHOSPHATE MONOBASIC W/ SOD TAB NG SCH ×2 (09:04→21:53)
[2019-11-28] MEDS: ALBUMIN 25% 50 ML IV SCH (09:05)
[2019-11-28] MEDS: FUROSEMIDE 40 MG in SYRINGE 0 ML IV SCH (11:08)
[2019-11-28] MEDS: PANTOprazole 40 MG in SYRINGE 0 ML IV SCH (11:08)
--- NOTE | 2019-11-28 13:55 | Critical Care Progress Note ---
Date of Service November 28, 2019 Assessment & Plan (1) Hypotension: 49-year-old female with past medical history of large left MCA and small right MCA stroke with cerebral edema and subsequent hemorrhagic conversion May 2019, she was initially in the ICU and downgraded yesterday which is 11/19/2019 for persistent tachycardia and undifferentiated shock and retroperitoneal hematoma which was found on CT 11/15/2019. Patient also has history of pulmonary embolism diagnosed 828 with left popliteal DVT Patient with a very complex recent medical history and past medical history. In summary she is being treated for an ESBL UTI with ceftolozane/tazobactam. She continues to be minimally responsive and hypotensive. We are continuing IV diuresis. I decreased Lasix to 40 mg once daily given her hyponatremia. Continuing to p.o. amiodarone. Holding all anticoagulation given her recent retroperitoneal hematoma and hemorrhagic pleural effusion. Her prognosis is extremely poor. A full palliative approach with comfort measures only would be very appropriate. Palliative care is following the patient. She is currently DNR/DNI. She is being transferred to the floor. (2) Deep vein thrombosis (DVT) of popliteal vein of left lower extremity: (3) Hemiplegia and hemiparesis following cerebral infarction affecting right dominant side: Admission and Anticipated Discharge Date Admission Date: November 11, 2019 Subjective Patient very altered. Very lethagic. No acute events. Review of Systems Review of Systems: Unobtainable due to cognitive status Physical Exam Constitutional: chronically ill appearing Eyes: PERRL, conjunctivae normal, anicteric sclerae Respiratory: crackles b/l lower lobes Cardiovascular: RRR, no murmur, no edema Gastrointestinal (Abdomen): normal bowel sounds, soft, nontender, no hepatosplenomegaly Musculoskeletal: no cyanosis or clubbing, extremities motor strength 5/5 Skin: no rashes, warm and dry Neurologic: + obtunded Results & Data Results & Data ([facility]) Vital Signs (Past 12 Hours) Vital Signs Temp Pulse Resp BP Pulse Ox 11/28/19 06:01 97 H 12 96 11/28/19 06:00 99 H 11 L 103/60 96 11/28/19 04:01 98.2 F 95 H 12 94 11/28/19 04:00 91 H 12 98/53 L 95 11/28/19 03:00 93 H 12 94 11/28/19 02:01 104 H 11 L 93 11/28/19 02:00 99 H 10 L 108/54 L 94 Reviewed labs, vitals, imaging Coding Level of Care Code 21343 Subseq Hosp Care Lvl 2 Diagnoses Hypotension I95.9 Deep vein thrombosis (DVT) of popliteal vein of left lower extremity I82.432 Hemiplegia and hemiparesis following cerebral infarction affecting right dominant side I69.351
[2019-11-28] MEDS ORDERED: NYSTATIN POWDER 15GM BTL EXT PRN (15:28)
[2019-11-28] MEDS: PROSOURCE NO CARB 30 ML/PKT NG SCH (16:40)
--- NOTE | 2019-11-28 17:05 | Palliative Care Progress Note ---
Date of Service November 28, 2019 Assessment & Plan (1) Goals of care, counseling/discussion: Patient is a 49-year-old female with a past medical history of a large left MCA CVA on June 09, 2019 with resultant dense right hemiparesis. Patient was at [facility] from 06/08- 06/28 and was transferred to [facility]. Patient was at [facility] until 07/25 when she was transferred to [facility] for further therapies. Patient was sent to [facility] on 11/09 for tachycardia, hypotension, and mild hypoxia. Patient's O2 sats were 88%, heart rate was between 150 and 170. Patient received IV hydration for hypotension- also required pressors, was weaned off pressors on 11/24, pressors were restarted. Patient had an echo which was within normal limits on 11/10, she had a recent colonoscopy with EGD prior to this admission 11/08 due to history of GERD and Crohn's-no abnormalities were found, biopsies were negative for malignancy or any acute issues. Due to hypoxia patient underwent a CTA that showed bilateral emboli with a moderate to large pleural effusion-she had her left pleural effusion tapped on 11/22-was 600 cc removed. Pleural fluid studies showed transudate. Patient had a Doppler was found to have a left distal nonocclusive popliteal vein thrombosis. Patient had been on Lovenox at [facility]. Patient was not on full AC due to prior CVA with hemorrhagic conversion in May. An IVC filter was placed on 11/14. While in the hospital she continued to be tachycardic with low blood pressures, she had decreased urine output and increased edema and was transferred to the ICU on 11/13. Patient's albumin on admission was 0.8, her hemoglobin continued to drop-she was found to have right retroperitoneal bleed extending into the muscle on 11/19-she was transfused 2 units on 11/21 for hemoglobin of 7.1. On 11/24 patient exhibited seizure activity- even though she is at risk for seizures due to her stroke she had not had any prior, it was felt that may be ertapenem had triggered a seizure-this was discontinued and patient was placed on Zerbaxa for ESBL E. coli UTI. Patient was noted to have a UTI prior to admission-despite antibiotics her urine was still positive on 11/21. -Saw patient in room 110-patient was mainly nonverbal, tried to mouth some words but were difficult to understand. Asked the patient yes and no questions, she would nod her head yes and would try to speak if the answer was other than yes. - CODE STATUS changed to DNR/DNI on 11/26. Of note, admission records from [facility] show that she was a DNR there. -Also spoke with patient regarding transition to comfort care-she did indicate she would consider it, indicated she was not ready to transition to comfort care at this time, agreed to continue to consider it -Patient's mother reports she had been speaking to the patient daily by phone, was able to understand her speech on the phone-she is going to try to come in this evening and visit if her son can bring her in. -Increasing edema-patient is receiving IV albumin followed by IV Lasix-has only been able to diurese approximately 300 cc over the previous 24 hours-continue Lasix -Hypotension-patient is on midodrine 10 mg 3 times daily -Nutrition-patient was taking some p.o., had been on dronabinol 5 mg 3 times daily at [facility]-was eating very little, is currently on NG tube feeds. Patient had previously made statements regarding no PEG tube-patient did indicate those continue to be her current wishes. -Patient was started on Prozac after her stroke for neuro restorative as well as depressive symptoms-she had been doing well at [facility]. -CVA-patient with dense right hemiparesis. Patient's expressive aphasia and dysphagia had improved while at [facility] -patient appears to have worsening deficits from when I was involved with her care at [facility]. -Will continue to follow and assist patient and family with medical decision making. PPS-30% (2) Hemiplegia and hemiparesis following cerebral infarction affecting right dominant side: (3) Deep vein thrombosis (DVT) of popliteal vein of left lower extremity: Not a candidate for AC (4) S/P insertion of IVC (inferior vena caval) filter: (5) Protein calorie malnutrition: Poor p.o. intake, had been on dronabinol prior to admission (6) Retroperitoneal bleed: Hemoglobin stable (7) UTI (urinary tract infection): E. coli ESBL-on IV Zerbaxa (8) Dysphagia: Able to take some p.o. (9) New onset seizure: (10) Pleural effusion: Status post Tap-600 cc removed on 11/22 (11) Hypotension: On midodrine 10 mg 3 times daily (12) Anasarca: Continue diuresis Admission and Anticipated Discharge Date Admission Date: November 11, 2019 Subjective Patient arousable, able to respond by nodding, tries to speak at times, speech unclear. Spoke with patient yesterday regarding transitioning to comfort care-patient indicated she wanted to continue treatment at this time, did agree to continue to consider transitioning to comfort care. Patient understands she is not getting better, not making much progress with her current treatment. Review of Systems Review of Systems: Unable to obtain a reliable ROS as patient only able to nod, speech is not understandable Physical Exam Physical Exam: PE: Patient alert, appears comfortable HEENT: EOMI, gaze focused, NG tube in place Respirations: Diminished breath sounds bilaterally, poor inspiratory effort CV: Regular rate, 3+ pitting edema Abdomen: Soft, nontender Neuro: Appears to understand simple questions, able to nod yes, tries to speak but speech is mumbled. Results & Data ([facility]) Vital Signs (Past 12 Hours) Vital Signs Pulse Resp BP Pulse Ox 11/28/19 16:00 94 H 117/69 11/28/19 15:00 94 H 11 L 126/70 95 11/28/19 14:00 99 H 15 121/71 95 11/28/19 13:00 89 17 113/67 95 11/28/19 12:00 88 19 115/68 96 11/28/19 11:00 92 H 15 107/60 97 11/28/19 10:00 106 H 16 97/58 L 93 11/28/19 09:19 98 H 12 114/71 97 11/28/19 08:00 95 H 15 98/63 L 96 11/28/19 07:00 94 H 11/28/19 06:01 97 H 12 96 11/28/19 06:00 99 H 11 L 103/60 96 PG Care Time/CCT Total # of Minutes Spent Total Time Spent with Patient: Total time spent 35 minutes with greater than 50% of the time spent at bedside discussing patient's goals as well as collaborating with ICU attending physician on the unit. Coding Level of Care Code 86892 Subseq Hosp Care Lvl 3 Diagnoses Goals of care, counseling/discussion Z71.89 Hemiplegia and hemiparesis following cerebral infarction affecting right dominant side I69.351 Deep vein thrombosis (DVT) of popliteal vein of left lower extremity I82.432 S/P insertion of IVC (inferior vena caval) filter Z95.828 Protein calorie malnutrition E46 Retroperitoneal bleed R58 UTI (urinary tract infection) N30.01 Hematuria presence: with hematuria Urinary tract infection type: acute cystitis Dysphagia R13.10 New onset seizure R56.9 Pleural effusion J90 Hypotension I95.9 Anasarca R60.1 Time Spent (min) 35 (1) UTI (urinary tract infection) Hematuria presence: with hematuria Urinary tract infection type: acute cystitis Qualified Code(s): N30.01 - Acute cystitis with hematuria
--- NOTE | 2019-11-28 18:00 | Hospitalist Progress Note ---
Date of Service November 28, 2019 Assessment & Plan (1) Retroperitoneal hemorrhage: This patient is a 49-year-old female with a Hx of stroke in May 2019, Crohn's disease, depression, with LLE DVT and multiple bilateral PEs. She has had a prolonged hospital stay due to a spontaneous retroperitoneal hemorrhage and septic shock secondary to a UTI. Her course has also been complicated by profound protein calorie malnutrition and hypoalbuminemia with anasarca and new onset seizure on 11/24. Sepsis with Septic Shock -Resolving -continue abx treatment -stable for transfer to [facility] [place] Retroperitoneal Bleed -Hgb staying stable -follow CBC and clinical status Seizure -new onset -holding ertapenem as potential cause -EEG ordered today -appreciate neurology consult PE -IVC filter in place currently, breathing on room air Anasarca -due to profound hypoalbuminemia, follow, on tube feeds, cautious diuretic Hemiplegia and hemiparesis following cerebral infarction affecting right dominant side: - secondary to large left MCA stroke and small right MCA stroke with asymptomatic hemorrhagic conversion as per notes from [facility] GERD (gastroesophageal reflux disease): - Continue pantoprazole through the IV Major depressive disorder: -Continue fluoxetine, mirtazapine CODE STATUS: DNR/DNI stable for telemetry Admission and Anticipated Discharge Date Admission Date: November 11, 2019 Subjective resting comfortably. d/w nursing. no new problems. ICU input appreciated - safe for transfer out of ICU. palliative ongoing discussions w family Physical Exam Physical Exam: gen resting comfortably nad heent nc at mmm NGT without local breakdown. skin no pallor or icterus Results & Data Results & Data ([facility]) Vital Signs (Past 12 Hours) Vital Signs Pulse Resp BP Pulse Ox 11/28/19 16:00 94 H 117/69 11/28/19 15:00 94 H 11 L 126/70 95 11/28/19 14:00 99 H 15 121/71 95 11/28/19 13:00 89 17 113/67 95 11/28/19 12:00 88 19 115/68 96 11/28/19 11:00 92 H 15 107/60 97 11/28/19 10:00 106 H 16 97/58 L 93 11/28/19 09:19 98 H 12 114/71 97 11/28/19 08:00 95 H 15 98/63 L 96 11/28/19 07:00 94 H 11/28/19 06:01 97 H 12 96 11/28/19 06:00 99 H 11 L 103/60 96 PG Care Time/CCT Total # of Minutes Spent Total Time Spent with Patient: Total time spent is greater than 50% in coordination of care (as documented) at patient's floor/unit and/or counseling patient: Coding Level of Care Code 45825 Subseq Hosp Care Lvl 1 Diagnoses Retroperitoneal hemorrhage R58
[2019-11-28] MEDS: MIRTAZAPINE TAB 15 MG TAB NG SCH (21:40)
[2019-11-28] MEDS: ATORVASTATIN 40 MG TAB NG SCH (21:40)
[2019-11-29] MEDS: CEFTOLOZANE/TAZOBACTAM 1,500 MG in DEXTROSE 5% 100 ML IV SCH ×3 (00:55→17:18)
[2019-11-29 06:41] LABS: Hematocrit (blood only) 28.8 % (37-47); Hemoglobin 9.4 g/dL (12.0-16.0); Mean Corpuscular Hemoglobin 30.5 pg (25-34); Mean Corpuscular Hgb Conc 32.6 g/dL (32-36); Mean Corpuscular Volume 93.5 fL (80-100); Mean Platelet Volume 12.7 fL (7.4-10.4); Platelet Count 191 K/uL (130-400); RDW Coefficient of Variation 18.1 % (11.5-14.5); RDW Standard Deviation 60.5 fL (36.4-46.3); Red Blood Count 3.08 M/uL (4.2-5.4); White Blood Count 12.15 K/uL (4.8-10.8)
[2019-11-29 07:07] LABS: ALC (manual) 0.32 K/uL (1.2-3.4); ANC (manual) 11.51 K/uL (1.4-6.5); Anisocytosis Present; Eosinophils # (manual) 0.22 K/uL (0-0.5); Eosinophils % (manual) 1.8 %; Lymphocytes # (manual) 0.32 K/uL (1.2-3.4); Lymphocytes % (manual) 2.6 %; Monocytes # (manual) 0.11 K/uL (0.11-0.59); Monocytes % (manual) 0.9 %; Neutrophils # (manual) 11.51 K/uL (1.4-6.5); Neutrophils % (manual) 94.7 %; Poikilocytosis Present
[2019-11-29 07:09] LABS: BUN Creatinine Ratio 16.2 (10-20); Calcium 7.8 mg/dl (8.5-10.1); Est GFR (African American) 103.6; Est GFR (Non-African American) 89.4; Magnesium 2.1 mg/dl (1.8-2.4); Potassium 3.8 mmol/L (3.5-5.1)
[2019-11-29] MEDS: POT PHOSPHATE MONOBASIC W/ SOD TAB NG SCH ×2 (08:51→21:32)
[2019-11-29] MEDS: FUROSEMIDE 40 MG in SYRINGE 0 ML IV SCH (08:51)
[2019-11-29] MEDS: ASCORBIC ACID 500 MG TAB PO SCH (08:52)
[2019-11-29] MEDS: MULTI VIT W/MINERALS LIQUID 15 ML UDP NG SCH (08:52)
[2019-11-29] MEDS: FLUOXETINE HCL 20 MG/5 ML UDP NG SCH (08:52)
[2019-11-29] MEDS: FERROUS SULFATE 325 MG/7.4 ML UDP PO SCH (08:52)
[2019-11-29] MEDS: MAGNESIUM OXIDE 400 MG TAB PO SCH ×2 (08:53→21:32)
[2019-11-29] MEDS: ASPIRIN 81 MG CHEW NG SCH (08:53)
[2019-11-29] MEDS: MIDODRINE HCL 10 MG TAB PO SCH ×3 (08:53→17:18)
[2019-11-29] MEDS: THIAMINE HCL 100 MG TAB NG SCH ×2 (08:53→21:34)
[2019-11-29] MEDS: POTASSIUM CHLORIDE 20 MEQ/15 ML UDC PO SCH ×2 (08:54→21:31)
[2019-11-29] MEDS: PEPTAMEN INTENSE VHP 1.0 CAL 1,000 ML BAG GT SCH (10:57)
[2019-11-29] MEDS: PANTOprazole 40 MG in SYRINGE 0 ML IV SCH (12:46)
--- NOTE | 2019-11-29 12:53 | Hospitalist Progress Note ---
Date of Service November 29, 2019 Assessment & Plan (1) Retroperitoneal hemorrhage: This patient is a 49-year-old female with a Hx of stroke in May 2019, Crohn's disease, depression, with LLE DVT and multiple bilateral PEs. She has had a prolonged hospital stay due to a spontaneous retroperitoneal hemorrhage and septic shock secondary to a UTI. Her course has also been complicated by profound protein calorie malnutrition and hypoalbuminemia with anasarca and new onset seizure on 11/24. Sepsis with Septic Shock -Resolving -continue abx treatment - will increase tube feeds and work towards restarting PO intake Retroperitoneal Bleed -Hgb stable -follow CBC daily Seizure -new onset -hold ertapenem as potential cause -EEG completed -- no signs of seizure activity at that time -appreciate neurology consult PE -IVC filter in place currently Anasarca -due to profound hypoalbuminemia Hemiplegia and hemiparesis following cerebral infarction affecting right dominant side: - secondary to large left MCA stroke and small right MCA stroke with asymptomatic hemorrhagic conversion as per notes from [facility] GERD (gastroesophageal reflux disease): - Continue pantoprazole through the IV Major depressive disorder: -Continue fluoxetine, mirtazapine CODE STATUS: DNR/DNI Admission and Anticipated Discharge Date Admission Date: November 11, 2019 Supervising Physician Co-Signing Physician Notes I personally examined the patient and verified all armstrong points of history and exam, discussed case, and agree with decision making with Dr Lugo. sleeping comfortably no distress. vitals noted nad heent nc at mmm breathing unlabored NGT without breakdown. shock/UTI/sepsis/retroperitoneal bleed/seizure - continue current care. appears to be stabilizing from septic shock and retroperitoneal bleed. increasing tube feeds, will need to work to transition to PO intake eventually. goal return to SNF otherwise as above Subjective Patient seen and evaluated at bedside today. Upon arrival to the room, she was laying in bed, watching TV, alert, and in no acute distress. Patient is trying to verbally communicate more. She states that she slept "OK" last night. She does have OJ at bedside and she has been trying to take small sips of fluid. Pt has no complaints today. She denies any pain (including CP or abd pain), SOB, cough, or nausea. Review of Systems Review of Systems: see HPI above Physical Exam Physical Exam: GENERAL: No acute distress. Vital signs reviewed as above. EYES: Ecchymosis around right eye. HENT: Head is normocephalic. Dry mucous membranes. NG tube in place. RESPIRATORY: Diffuse rhonci. CARDIOVASCULAR: Regular rate and rhythm. No murmurs. ABDOMEN: Soft, non-tender and non-distended. No palpable masses. Hypoactive bowel sounds. EXTREMITIES: 3+ bilateral lower extremity edema with minimal TTP; no difference between RLE and LLE. NEUROLOGIC: Right upper extremity hemiparesis c/w previous stroke. Left respiratory care faculty strength 4/5. Pt able to wiggle toes both right foot and left foot. Results & Data Results & Data ([facility]) Vital Signs (Past 12 Hours) Vital Signs Temp Pulse Resp BP Pulse Ox 11/29/19 11:53 37.1 C 96 H 18 94/67 L 95 11/29/19 07:21 36.9 C 98 H 18 110/68 99 11/29/19 07:00 114 H 11/29/19 04:00 36.8 C 98 H 20 99/66 L 97
[2019-11-29] MEDS: ONDANSETRON INJ 2 MG/ML 2 ML VIAL IV PRN (17:15)
[2019-11-29] MEDS: PROSOURCE NO CARB 30 ML/PKT NG SCH (17:18)
--- NOTE | 2019-11-29 18:26 | Billing Data ---
Date of Service November 29, 2019 Coding Level of Care Code 13759 Subseq Hosp Care Lvl 2
[2019-11-29] MEDS: MIRTAZAPINE TAB 15 MG TAB NG SCH (21:32)
[2019-11-29] MEDS: ATORVASTATIN 40 MG TAB NG SCH (21:32)
[2019-11-29] MEDS: LOPERAMIDE LIQUID 120 ML BOTTLE PO PRN (21:34)
[2019-11-30] MEDS: CEFTOLOZANE/TAZOBACTAM 1,500 MG in DEXTROSE 5% 100 ML IV SCH ×3 (00:12→15:48)
[2019-11-30 05:59] LABS: Basophils # (auto) 0.06 K/uL (0-0.2); Basophils % (auto) 0.4 %; Eosinophils # (auto) 0.29 K/uL (0-0.5); Eosinophils % (auto) 2.1 %; Hematocrit (blood only) 28.4 % (37-47); Hemoglobin 9.1 g/dL (12.0-16.0); Immature Granulocytes # (auto) 0.23 K/uL (0.00-0.02); Immature Granulocytes % (auto) 1.7 %; Lymphocytes # (auto) 0.51 K/uL (1.2-3.4); Lymphocytes % (auto) 3.7 %; Mean Corpuscular Hemoglobin 30.1 pg (25-34); Mean Platelet Volume 11.8 fL (7.4-10.4); Monocytes # (auto) 0.52 K/uL (0.11-0.59); Monocytes % (auto) 3.8 %; Neutrophils % (auto) 88.3 %; Platelet Count 218 K/uL (130-400); RDW Coefficient of Variation 18.2 % (11.5-14.5); RDW Standard Deviation 60.5 fL (36.4-46.3); Red Blood Count 3.02 M/uL (4.2-5.4); White Blood Count 13.81 K/uL (4.8-10.8)
[2019-11-30 06:27] LABS: BUN Creatinine Ratio 18.5 (10-20); Calcium 7.1 mg/dl (8.5-10.1); Creatinine Clr Calc Pharmacy 77.2 ml/min; Est GFR (African American) 84.7; Est GFR (Non-African American) 73.1; Magnesium 2.1 mg/dl (1.8-2.4); Potassium 3.8 mmol/L (3.5-5.1)
[2019-11-30] MEDS: FUROSEMIDE 40 MG in SYRINGE 0 ML IV SCH (08:20)
[2019-11-30] MEDS: ASPIRIN 81 MG CHEW NG SCH (08:21)
[2019-11-30] MEDS: POT PHOSPHATE MONOBASIC W/ SOD TAB NG SCH ×2 (08:22→21:32)
[2019-11-30] MEDS: ASCORBIC ACID 500 MG TAB PO SCH (08:22)
[2019-11-30] MEDS: POTASSIUM CHLORIDE 20 MEQ/15 ML UDC PO SCH ×2 (08:22→21:32)
[2019-11-30] MEDS: FERROUS SULFATE 325 MG/7.4 ML UDP PO SCH (08:23)
[2019-11-30] MEDS: MAGNESIUM OXIDE 400 MG TAB PO SCH ×2 (08:23→21:32)
[2019-11-30] MEDS: MIDODRINE HCL 10 MG TAB PO SCH ×3 (08:23→15:57)
[2019-11-30] MEDS: FLUOXETINE HCL 20 MG/5 ML UDP NG SCH (08:23)
[2019-11-30] MEDS: MULTI VIT W/MINERALS LIQUID 15 ML UDP NG SCH (08:24)
[2019-11-30] MEDS: THIAMINE HCL 100 MG TAB NG SCH ×2 (08:24→21:32)
--- NOTE | 2019-11-30 10:38 | Hospitalist Progress Note ---
Date of Service November 30, 2019 Assessment & Plan (1) Retroperitoneal hemorrhage: This patient is a 49-year-old female with a Hx of stroke in May 2019, Crohn's disease, depression, with LLE DVT and multiple bilateral PEs. She has had a prolonged hospital stay due to a spontaneous retroperitoneal hemorrhage and septic shock secondary to a UTI. Her course has also been complicated by profound protein calorie malnutrition and hypoalbuminemia with anasarca and new onset seizure on 11/24. Sepsis with Septic Shock - Resolving - continue abx treatment - will increase tube feeds and work towards restarting PO intake - will order PT/OT/ST for evaluation and therapy as indicated - Recommend that nursing add 250 cc water w/ tube feeds to increase hydration status Retroperitoneal Bleed -Hgb stable -follow CBC daily Seizure -new onset -hold ertapenem as potential cause -EEG completed -- no signs of seizure activity at that time -appreciate neurology consult and recommendations PE -IVC filter in place currently Anasarca -due to profound hypoalbuminemia Hemiplegia and hemiparesis following cerebral infarction affecting right dominant side: - secondary to large left MCA stroke and small right MCA stroke with asymptomatic hemorrhagic conversion as per notes from [facility] GERD (gastroesophageal reflux disease): - Continue pantoprazole through the IV Major depressive disorder: -Continue fluoxetine, mirtazapine CODE STATUS: DNR/DNI Admission and Anticipated Discharge Date Admission Date: November 11, 2019 Supervising Physician Co-Signing Physician Notes I personally examined the patient and verified all armstrong points of history and exam, discussed case, and agree with decision making with Dr Lugo. awake, trying to interact. no distress. seems to offer no complaints. i try to discuss feeding goals/strategies vitals noted nad heent nc at mmm breathing unlabored NGT without breakdown. shock/UTI/sepsis/retroperitoneal bleed/seizure - continue current care. appears to be stabilizing from septic shock and retroperitoneal bleed. increasing tube feeds, will need to work to transition to PO intake eventually (speech input will be appreciated). goal return to SNF otherwise as above Subjective Patient seen and evaluated at bedside today. Upon arrival to the room, she was laying in bed, watching TV, alert, and in no acute distress. She slept "so so" last night. Patient is trying to verbally communicate but is still unable to pr oduce many words. She has been trying to take sips of fluid PO. She does have the NG tube in place still; pt reportedly does not feel hungry right now. She reports persistent b/l LE pain and swelling (unchanged) but she has no other complaints today. She denies any CP, abd pain, SOB, cough, nausea, or vomiting. Review of Systems Constitutional: + fatigue; no fever and no chills Respiratory: no cough and no dyspnea Cardiovascular: no chest pain Gastrointestinal: no abdominal pain, no nausea and no vomiting Musculoskeletal: + swelling Physical Exam Physical Exam: GENERAL: No acute distress. Vital signs reviewed as above. EYES: Ecchymosis around right eye. HENT: Head is normocephalic. Dry mucous membranes. NG tube in place. RESPIRATORY: Some diffuse crackles througout b/l lung correa. CARDIOVASCULAR: Regular rate and rhythm. No murmurs. ABDOMEN: Soft, non-tender and non-distended. No palpable masses. Hypoactive bowel sounds. EXTREMITIES: 3+ bilateral lower extremity edema with minimal TTP; no difference between RLE and LLE. NEUROLOGIC: Right upper extremity hemiparesis c/w previous stroke. Left control technician strength 4/5. Pt able to wiggle toes both right foot and left foot. Results & Data Results & Data ([facility]) Vital Signs (Past 12 Hours) Vital Signs Temp Pulse Resp BP Pulse Ox 11/30/19 08:00 36.5 C 86 18 90/63 L 99 11/30/19 04:00 36.9 C 86 18 97/59 L 94 11/29/19 23:13 37.0 C 84 19 119/70 95
[2019-11-30] MEDS: PANTOprazole 40 MG in SYRINGE 0 ML IV SCH (11:29)
--- NOTE | 2019-11-30 15:16 | Neurology Progress Note ---
Date of Service November 30, 2019 Assessment & Plan (1) New onset seizure: Ileana Churchill is a 49 yo woman w/ PMH of prior L MCA stroke c/b hemorrhagic conversion with residual aphasia and right sided weakness, Crohn's disease, GERD, urinary retention, h/o VT, and baseline anemia who initially p/t [facility] with chest pain and tachycardia, found to have bilateral PEs a/w LLE DVT. # H/o L MCA stroke c/b hemorrhagic conversion with residual aphasia/right sided weakness: unfortunately, now has a DVT/bilateral PE and needs to be anticoagulated. 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 Plan of care discussed with primary team. Please call or text with questions. (2) Sepsis: Admission and Anticipated Discharge Date Admission Date: November 11, 2019 Subjective NAEs overnight. Back on medicine stepdown. Slowly improving. Was tired this afternoon but was more able overall to participate in her examination and move her LUE/LLE extremities. No further seizure like activity. Review of Systems Review of Systems: Difficult to assess 2/2 aphasia but did appear to appropriately answer questions when (see HPI for full 10 point ROS) Results & Data ([facility]) Vital Signs (Past 12 Hours) Vital Signs Temp Pulse Resp BP Pulse Ox 11/30/19 12:00 36.9 C 65 16 180/71 H 95 11/30/19 11:03 37.4 C 95 H 18 90/60 L 94 11/30/19 08:00 36.5 C 86 18 90/63 L 99 11/30/19 04:00 36.9 C 86 18 97/59 L 94 Exam (Neuro) Physical Exam: General Exam: GEN: NAD, sitting in bed. HEENT: No conjunctival injection, no rhinorrhea. CV: RRR, no peripheral edema PULM: Nonlabored respirations on room air. Neuro Exam: MS: Drowsy but easily arousable. Oriented to person, place, not date. Speech fluent without dysarthria, + paraphasic errors. Language intact including naming, comprehension, not repetition. Cognition and memory mildly impaired. Attention intact. No neglect. CN: Slight right eye, right visual field cut. PERRLA OU. EOMI without nystagmus. Facial sensation intact to LT. R FP. Hearing intact to conversation. Uvula midline with symmetric palatal elevation. Shoulder shrug normal on the left. Tongue midline. MOTOR: Normal bulk, decreased tone throughout. No pronator drift. LUE antigravity with drift to bed, 4-/5 hand grasp. RUE flaccid with increased tone (early spasticity noted). LLE strength 4-5/5 at iliopsoas, 3/5 tibialis anterior, and 4-/5 gastrocnemius; RLE strength 3/5 at iliopsoas/hamstrings/ quadriceps/TA/gastroc. REFLEXES: 2+ at L biceps, triceps, brachioradialis, 1+ L patella and trace Achilles; 2+ and brisk in R biceps/triceps/brachioradialis/patella, 2+ R Achilles. Flexor plantar responses in left, right toe mute. SENSORY: Intact to LT without extinction to double simultaneous stimuli. Vibration intact throughout. COORDINATION: unable to assess 2/2 weakness GAIT: deferred given physical status PG Care Time/CCT Total # of Minutes Spent Total Time Spent with Patient: Total time spent is greater than 50% in coordination of care (as documented) at patient's floor/unit and/or counseling patient: Coding Level of Care Code 14400 Subseq Hosp Care Lvl 2 Diagnoses New onset seizure R56.9 Sepsis A41.9
[2019-11-30] MEDS: PROSOURCE NO CARB 30 ML/PKT NG SCH (15:55)
--- NOTE | 2019-11-30 17:08 | Palliative Care Progress Note ---
Date of Service November 30, 2019 Assessment & Plan (1) Goals of care, counseling/discussion: Patient is a 49-year-old female with a past medical history of a large left MCA CVA on June 09, 2019 with resultant dense right hemiparesis. Patient was at [facility] from 06/08- 06/28 and was transferred to [facility]. Patient was at [facility] until 07/25 when she was transferred to [facility] for further therapies. Patient was sent to [facility] on 11/09 for tachycardia, hypotension, and mild hypoxia. Patient's O2 sats were 88%, heart rate was between 150 and 170. Patient received IV hydration for hypotension- also required pressors, was weaned off pressors on 11/24, pressors were restarted. Patient had an echo which was within normal limits on 11/10, she had a recent colonoscopy with EGD prior to this admission 11/08 due to history of GERD and Crohn's-no abnormalities were found, biopsies were negative for malignancy or any acute issues. Due to hypoxia patient underwent a CTA that showed bilateral emboli with a moderate to large pleural effusion-she had her left pleural effusion tapped on 11/22-was 600 cc removed. Pleural fluid studies showed transudate. Patient had a Doppler was found to have a left distal nonocclusive popliteal vein thrombosis. Patient had been on Lovenox at [facility]. Patient was not on full AC due to prior CVA with hemorrhagic conversion in May. An IVC filter was placed on 11/14. While in the hospital she continued to be tachycardic with low blood pressures, she had decreased urine output and increased edema and was transferred to the ICU on 11/13. Patient's albumin on admission was 0.8, her hemoglobin continued to drop-she was found to have right retroperitoneal bleed extending into the muscle on 11/19-she was transfused 2 units on 11/21 for hemoglobin of 7.1. On 11/24 patient exhibited seizure activity- even though she is at risk for seizures due to her stroke she had not had any prior, it was felt that may be ertapenem had triggered a seizure-this was discontinued and patient was placed on Zerbaxa for ESBL E. coli UTI. Patient was noted to have a UTI prior to admission-despite antibiotics her urine was still positive on 11/21. -Saw patient in room 232-patient was mainly nonverbal, did not try to mouth some words as she did on prior exam. Asked the patient yes and no questions, she would nod her head yes to all questions - CODE STATUS changed to DNR/DNI on 11/26. -Also spoke with patient regarding transition to comfort care on last exam-she did indicate she would consider it, unable to discuss with patient today due to increased somnolence and lethargy -Increasing edema-patient is receiving IV albumin followed by IV Lasix-has only been able to diurese approximately 300 cc over the previous 24 hours-continue Lasix -Hypotension-patient is on midodrine 10 mg 3 times daily -Nutrition-patient was taking some p.o., had been on dronabinol 5 mg 3 times daily at [facility]-was eating very little, is currently on NG tube feeds. Patient had previously made statements regarding no PEG tube-patient did indicate those continue to be her current wishes. -Patient was started on Prozac after her stroke for neuro restorative as well as depressive symptoms-she had been doing well at [facility]. -CVA-patient with dense right hemiparesis. Patient's expressive aphasia and [facility]phagia [facility] -patient appears to have worsening deficits from when I was involved with her care at [facility]. -Will continue to follow and assist patient and family with medical decision making. PPS-30% (2) Hemiplegia and hemiparesis following cerebral infarction affecting right dom inant side: (3) Deep vein thrombosis (DVT) of popliteal vein of left lower extremity: Not a candidate for AC (4) S/P insertion of IVC (inferior vena caval) filter: (5) Protein calorie malnutrition: Poor p.o. intake, had been on dronabinol prior to admission (6) Retroperitoneal bleed: Hemoglobin stable (7) UTI (urinary tract infection): E. coli ESBL-on IV Zerbaxa (8) Dysphagia: Able to take some p.o. (9) New onset seizure: (10) Pleural effusion: Status post Tap-600 cc removed on 11/22 (11) Hypotension: On midodrine 10 mg 3 times daily (12) Anasarca: Continue diuresis Admission and Anticipated Discharge Date Admission Date: November 11, 2019 Subjective Patient seen and examined in room 232-patient more lethargic and appeared more confused, gaze appeared less to focus. Today on exam she nodded yes to all questions including that she feels she was doing better, did she feels she was doing worse, did she feels she was doing the same. On prior exams patient was able to nod yes, would try to speak if the answer was other than yes, able to understand 1 or 2 words. Patient has had a significant decline since her stay at [facility]. Was unable to have a further discussion regarding transition to comfort care, will continue to discuss with the patient. Patient's current CODE STATUS is DNR Review of Systems Review of Systems: Unobtainable due to cognitive status Physical Exam Physical Exam: PE: Patient arousable, more lethargic on exam today HEENT: EOMI, gaze unfocused, NG tube in place Respirations: Unlabored, diminished breath sounds bilateral bases CV: Regular rate, + pitting edema Abdomen: Soft, nontender Neuro: Less alert, more lethargic Results & Data ([facility]) Vital Signs (Past 12 Hours) Vital Signs Temp Pulse Resp BP Pulse Ox 11/30/19 15:36 99.0 F 88 20 90/60 L 93 11/30/19 12:00 98.4 F 65 16 180/71 H 95 11/30/19 11:03 99.3 F 95 H 18 90/60 L 94 11/30/19 08:00 97.7 F 86 18 90/63 L 99 PG Care Time/CCT Total # of Minutes Spent Total Time Spent with Patient: Total time spent 35 minutes with greater than 50% of the time spent at bedside attempting to discuss goals of care particularly transitioning to comfort care with patient, will continue to follow and assist patient and family with medical decision making Coding Level of Care Code 31481 Subseq Hosp Care Lvl 3 Diagnoses Goals of care, counseling/discussion Z71.89 Hemiplegia and hemiparesis following cerebral infarction affecting right dominant side I69.351 Deep vein thrombosis (DVT) of popliteal vein of left lower extremity I82.432 S/P insertion of IVC (inferior vena caval) filter Z95.828 Protein calorie malnutrition E46 Retroperitoneal bleed R58 UTI (urinary tract infection) N30.01 Hematuria presence: with hematuria Urinary tract infection type: acute cystitis Dysphagia R13.10 New onset seizure R56.9 Pleural effusion J90 Hypotension I95.9 Anasarca R60.1 Time Spent (min) 35 (1) UTI (urinary tract infection) Hematuria presence: with hematuria Urinary tract infection type: acute cystitis Qualified Code(s): N30.01 - Acute cystitis with hematuria
--- NOTE | 2019-11-30 19:34 | Billing Data ---
Date of Service November 30, 2019 Coding Level of Care Code 20369 Subseq Hosp Care Lvl 2
[2019-11-30] MEDS: MIRTAZAPINE TAB 15 MG TAB NG SCH (21:31)
[2019-11-30] MEDS: ATORVASTATIN 40 MG TAB NG SCH (21:32)
[2019-12-01] MEDS: CEFTOLOZANE/TAZOBACTAM 1,500 MG in DEXTROSE 5% 100 ML IV SCH ×4 (01:39→23:34)
[2019-12-01 07:42] LABS: Hematocrit (blood only) 30.2 % (37-47); Hemoglobin 9.8 g/dL (12.0-16.0); Mean Corpuscular Hemoglobin 30.5 pg (25-34); Mean Corpuscular Hgb Conc 32.5 g/dL (32-36); Mean Corpuscular Volume 94.1 fL (80-100); Mean Platelet Volume 11.3 fL (7.4-10.4); Platelet Count 262 K/uL (130-400); RDW Coefficient of Variation 19.1 % (11.5-14.5); RDW Standard Deviation 59.7 fL (36.4-46.3); Red Blood Count 3.21 M/uL (4.2-5.4); White Blood Count 12.87 K/uL (4.8-10.8)
[2019-12-01 08:08] LABS: Anisocytosis Present; Basophils # (auto) 0.04 K/uL (0-0.2); Basophils % (auto) 0.3 %; Eosinophils # (auto) 0.13 K/uL (0-0.5); Immature Granulocytes # (auto) 0.31 K/uL (0.00-0.02); Immature Granulocytes % (auto) 2.4 %; Lymphocytes % (auto) 3.9 %; Monocytes # (auto) 0.68 K/uL (0.11-0.59); Monocytes % (auto) 5.3 %; Neutrophils # (auto) 11.21 K/uL (1.4-6.5); Neutrophils % (auto) 87.1 %; Poikilocytosis Present
[2019-12-01 08:12] LABS: BUN Creatinine Ratio 29.3 (10-20); Calcium 7.8 mg/dl (8.5-10.1); Creatinine Clr Calc Pharmacy 79.5 ml/min; Magnesium 2.2 mg/dl (1.8-2.4); Phosphorus 3.7 mg/dl (2.5-4.9); Potassium 3.9 mmol/L (3.5-5.1)
[2019-12-01] MEDS: MIDODRINE HCL 10 MG TAB PO SCH ×3 (09:11→18:28)
[2019-12-01] MEDS: ASCORBIC ACID 500 MG TAB PO SCH (09:12)
[2019-12-01] MEDS: POT PHOSPHATE MONOBASIC W/ SOD TAB NG SCH ×2 (09:12→20:40)
[2019-12-01] MEDS: THIAMINE HCL 100 MG TAB NG SCH ×2 (09:12→20:40)
[2019-12-01] MEDS: MAGNESIUM OXIDE 400 MG TAB PO SCH ×2 (09:13→20:40)
[2019-12-01] MEDS: FERROUS SULFATE 325 MG/7.4 ML UDP PO SCH (09:13)
[2019-12-01] MEDS: FLUOXETINE HCL 20 MG/5 ML UDP NG SCH (09:14)
[2019-12-01] MEDS: POTASSIUM CHLORIDE 20 MEQ/15 ML UDC PO SCH ×2 (09:14→20:40)
[2019-12-01] MEDS: MULTI VIT W/MINERALS LIQUID 15 ML UDP NG SCH (09:14)
[2019-12-01] MEDS: ASPIRIN 81 MG CHEW NG SCH (11:29)
--- NOTE | 2019-12-01 13:22 | Hospitalist Progress Note ---
Date of Service December 01, 2019 Assessment & Plan (1) Retroperitoneal hemorrhage: This patient is a 49-year-old female with a Hx of stroke in May 2019, Crohn's disease, depression, with LLE DVT and multiple bilateral PEs. She has had a prolonged hospital stay due to a spontaneous retroperitoneal hemorrhage and septic shock secondary to a UTI. Her course has also been complicated by profound protein calorie malnutrition and hypoalbuminemia with anasarca and new onset seizure on 11/24. Sepsis with Septic Shock - Resolving - continue abx treatment - will increase tube feeds and work towards restarting PO intake - will order PT/OT/ST for evaluation and therapy as indicated - REMELT WORKER evaluated today per note, recommendations are as follows: - easy to chew diet - pt will need fed all meals - discontinue feeding through NG tube as directed by physician and dietary - safe swallow strategies (small bites, small sips, slow rate) - aspiration precautions as outlined - fully upright and alert for any intake and cue for swallow if noting oral hold - clean mouth after intake and check for pocketing - Will start advancing diet with easy to chew diet and thin liquids starting with dinner tonight - PT evaluated today -- recommending trial of acute care PT at frequency of 2-3 days/week progressing as per her tolerance. Recommend return to [facility] when medically stable. - Recommend that nursing add 250 cc water w/ tube feeds to increase hydration status. Also recommend that nursing urge patient to increase fluid PO intake for hydration. Retroperitoneal Bleed -Hgb stable -follow CBC daily Seizure -new onset -hold ertapenem as potential cause -EEG completed -- no signs of seizure activity at that time -appreciate neurology consult and recommendations PE -IVC filter in place currently Anasarca -due to profound hypoalbuminemia Hemiplegia and hemiparesis following cerebral infarction affecting right dominant side: - secondary to large left MCA stroke and small right MCA stroke with asymptomatic hemorrhagic conversion as per notes from [facility] GERD (gastroesophageal reflux disease): - Continue pantoprazole through the IV Major depressive disorder: -Continue fluoxetine, mirtazapine CODE STATUS: DNR/DNI Admission and Anticipated Discharge Date Admission Date: November 11, 2019 Supervising Physician Co-Signing Physician Notes I personally examined the patient and verified all armstrong points of history and exam, discussed case, and agree with decision making with Dr Lugo. sleeping comfortably when i saw her. d/w nursing she is able to swallow just not taking in much vitals noted nad heent nc at mmm breathing unlabored NGT without breakdown. shock/UTI/sepsis/retroperitoneal bleed/seizure - continue current care. appears to be stabilizing from septic shock and retroperitoneal bleed. continue tube feeds but working on PO nutrition. goal return to SNF otherwise as above Subjective Patient seen and evaluated in room today. Upon arrival to the room, she was laying in bed, watching TV, alert, and in no acute distress. She reports sleeping okay last night. Pt still with NG tube in place; she has not been attempting any PO intake. She has no acute complaints today. She denies any CP, abd pain, SOB, cough, nausea, or vomiting. Review of Systems Constitutional: no fever and no chills Respiratory: no cough and no dyspnea Cardiovascular: no chest pain Gastrointestinal: no abdominal pain, no nausea and no vomiting +NG tube in place Musculoskeletal: + swelling Physical Exam Physical Exam: GENERAL: No acute distress. Vital signs reviewed as above. EYES: Ecchymosis around right eye. HENT: Head is normocephalic. Dry mucous membranes. NG tube in place. RESPIRATORY: Some diffuse crackles througout b/l lung correa. CARDIOVASCULAR: Regular rate and rhythm. No murmurs. ABDOMEN: Soft, non-tender and non-distended. No palpable masses. Normal bowel sounds. EXTREMITIES: 3+ bilateral lower extremity edema with minimal TTP; no difference between RLE and LLE. NEUROLOGIC: Right upper extremity hemiparesis c/w previous stroke. Results & Data Results & Data ([facility]) Vital Signs (Past 12 Hours) Vital Signs Temp Pulse Pulse Resp BP Pulse Ox 12/01/19 10:42 37 C 87 18 102/68 100 12/01/19 08:16 36.3 C L 84 16 91/60 L 97 12/01/19 08:00 77 12/01/19 03:56 37.1 C 86 22 92/60 L 93
[2019-12-01] MEDS: PROSOURCE NO CARB 30 ML/PKT NG SCH (15:51)
--- NOTE | 2019-12-01 17:30 | Billing Data ---
Date of Service December 01, 2019 Coding Level of Care Code 98250 Subseq Hosp Care Lvl 2
[2019-12-01] MEDS: MIRTAZAPINE TAB 15 MG TAB NG SCH (20:40)
[2019-12-01] MEDS: ATORVASTATIN 40 MG TAB NG SCH (20:40)
[2019-12-02 07:07] LABS: BUN Creatinine Ratio 51.3 (10-20); Calcium 7.3 mg/dl (8.5-10.1); Creatinine Clr Calc Pharmacy 114.3 ml/min; Est GFR (Non-African American) 104.4; Phosphorus 2.8 mg/dl (2.5-4.9); Potassium 3.2 mmol/L (3.5-5.1)
[2019-12-02 07:27] LABS: Hematocrit (blood only) 27.2 % (37-47); Hemoglobin 8.8 g/dL (12.0-16.0); Mean Corpuscular Hemoglobin 30.4 pg (25-34); Mean Corpuscular Hgb Conc 32.4 g/dL (32-36); Mean Corpuscular Volume 94.1 fL (80-100); Platelet Count 312 K/uL (130-400); RDW Coefficient of Variation 19.6 % (11.5-14.5); RDW Standard Deviation 61.2 fL (36.4-46.3); Red Blood Count 2.89 M/uL (4.2-5.4)
[2019-12-02] MEDS: CEFTOLOZANE/TAZOBACTAM 1,500 MG in DEXTROSE 5% 100 ML IV SCH ×2 (07:50→15:50)
[2019-12-02] MEDS: MIDODRINE HCL 10 MG TAB PO SCH ×3 (07:50→15:50)
[2019-12-02] MEDS: POT PHOSPHATE MONOBASIC W/ SOD TAB NG SCH ×2 (07:51→21:28)
[2019-12-02] MEDS: ASPIRIN 81 MG CHEW NG SCH (07:51)
[2019-12-02] MEDS: MAGNESIUM OXIDE 400 MG TAB PO SCH ×2 (07:51→21:28)
[2019-12-02] MEDS: ASCORBIC ACID 500 MG TAB PO SCH (07:51)
[2019-12-02] MEDS: LANSOPRAZOLE 30 MG SOLTAB PEG SCH (07:51)
[2019-12-02] MEDS: FLUOXETINE HCL 20 MG/5 ML UDP NG SCH (07:51)
[2019-12-02] MEDS: THIAMINE HCL 100 MG TAB NG SCH ×2 (07:51→21:27)
[2019-12-02] MEDS: MULTI VIT W/MINERALS LIQUID 15 ML UDP NG SCH (07:51)
[2019-12-02] MEDS: FERROUS SULFATE 325 MG/7.4 ML UDP PO SCH (07:51)
[2019-12-02] MEDS: POTASSIUM CHLORIDE 20 MEQ/15 ML UDC PO SCH ×2 (07:51→21:27)
[2019-12-02 07:55] LABS: Anisocytosis Present; Basophils # (auto) 0.08 K/uL (0-0.2); Basophils % (auto) 0.6 %; Echinocytes 1+; Eosinophils # (auto) 0.13 K/uL (0-0.5); Immature Granulocytes # (auto) 0.41 K/uL (0.00-0.02); Immature Granulocytes % (auto) 3.2 %; Lymphocytes # (auto) 0.68 K/uL (1.2-3.4); Lymphocytes % (auto) 5.4 %; Monocytes % (auto) 5.5 %; Neutrophils % (auto) 84.3 %; Poikilocytosis Present
[2019-12-02] MEDS ORDERED: POTASSIUM CHLORIDE 20 MEQ/15 ML UDC PO STA (08:11)
--- NOTE | 2019-12-02 08:44 | Hospitalist Progress Note ---
Date of Service December 02, 2019 Assessment & Plan (1) Retroperitoneal hemorrhage: This patient is a 49-year-old female with a Hx of stroke in May 2019, Crohn's disease, depression, with LLE DVT and multiple bilateral PEs. She has had a prolonged hospital stay due to a spontaneous retroperitoneal hemorrhage and septic shock secondary to a UTI. Her course has also been complicated by profound protein calorie malnutrition and hypoalbuminemia with anasarca and new onset seizure on 11/24. 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 12/02/19 per note, recommendations are as follows: - easy to chew diet - pt will need fed all meals - discontinue feeding through NG tube as directed by physician and dietary - safe swallow strategies (small bites, small sips, slow rate) - aspiration precautions as outlined - fully upright and alert for any intake and cue for swallow if noting oral hold - clean mouth after intake and check for pocketing - Will start advancing diet with easy to chew diet and thin liquids starting with dinner tonight - PT evaluated today -- recommending trial of acute care PT at frequency of 2-3 days/week progressing as per her tolerance. Recommend return to [facility] when medically stable. - Recommend that nursing add 250 cc water w/ tube feeds to increase hydration status. Also recommend that nursing urge patient to increase fluid PO intake for hydration. - Strongly urged patient to try to start eating/drinking by mouth Retroperitoneal Bleed -Hgb stable but decreased 1 point from yesterday - Pt asymptomatic at this time and denies lightheadedness, dizziness, BULLOCK, or nausea - Will recheck Hgb q6h x24 hours -follow CBC daily Seizure -new onset; ertapenem as potential cause, will hold ertapenem -EEG completed -- no signs of seizure activity at that time -appreciate neurology consult and recommendations PE -IVC filter in place currently Anasarca -due to profound hypoalbuminemia Hemiplegia and hemiparesis following cerebral infarction affecting right dominant side: - secondary to large left MCA stroke and small right MCA stroke with asymptomatic hemorrhagic conversion as per notes from [facility] GERD (gastroesophageal reflux disease): - Continue pantoprazole through the IV Major depressive disorder: -Continue fluoxetine, mirtazapine CODE STATUS: DNR/DNI Admission and Anticipated Discharge Date Admission Date: November 11, 2019 Supervising Physician Co-Signing Physician Notes I personally examined the patient and verified all armstrong points of history and exam, discussed case, and agree with decision making with Dr Lugo. notes that NG tube not interfering w swallowing, does agree that she's not taking much in PO though vitals noted nad heent nc at mmm breathing unlabored NGT without breakdown. shock/UTI/sepsis/retroperitoneal bleed/seizure - continue current care. appears to be recovered from septic shock and retroperitoneal bleed. continue tube feeds but working on PO nutrition - for now using tube feeds to ensure she doesn't fall further behind nutritionally - but ultimately will need to increase actual PO intake. once we've had good nutrition in her for several days and have more "margin of error" may need to consider pulling NG and following on PO intake alone. would again want several good days of nutrition first to at least have some semblance of reserve. goal return to SNF otherwise as above Subjective Patient seen and evaluated in room today. She admits that she has not been eating much by mouth and that she "doesn't feel hungry." Patient has no complaints of pain today; denies CP, abdominal pain, SOB, cough, or headache. Review of Systems Constitutional: no fever and no chills Respiratory: no cough and no dyspnea Cardiovascular: no chest pain Gastrointestinal: no abdominal pain, no nausea and no vomiting Musculoskeletal: + swelling Neurologic: no headache(s) Physical Exam Physical Exam: GENERAL: No acute distress. Vital signs reviewed as above. EYES: Ecchymosis around right eye, improving. HENT: Head is normocephalic. Dry mucous membranes. NG tube in place. RESPIRATORY: Some diffuse crackles throughout b/l lung correa, improving. CARDIOVASCULAR: Regular rate and rhythm. No murmurs. ABDOMEN: Soft, non-tender and non-distended. No palpable masses. Normal bowel sounds. EXTREMITIES: 3+ bilateral lower extremity edema with minimal TTP; no difference between RLE and LLE. NEUROLOGIC: Right upper extremity hemiparesis c/w previous stroke. Results & Data Results & Data ([facility]) Vital Signs (Past 12 Hours) Vital Signs Temp Pulse Resp BP Pulse Ox 12/01/19 23:13 36.8 C 99 H 19 104/64 92
[2019-12-02] MEDS: PEPTAMEN INTENSE VHP 1.0 CAL 1,000 ML BAG GT SCH (13:09)
[2019-12-02] MEDS: PROSOURCE NO CARB 30 ML/PKT NG SCH (15:50)
--- NOTE | 2019-12-02 19:30 | Billing Data ---
Date of Service December 02, 2019 Coding Level of Care Code 72880 Subseq Hosp Care Lvl 3
[2019-12-02] MEDS: ATORVASTATIN 40 MG TAB NG SCH (21:28)
[2019-12-02] MEDS: MIRTAZAPINE TAB 15 MG TAB NG SCH (21:29)
[2019-12-03] MEDS: CEFTOLOZANE/TAZOBACTAM 1,500 MG in DEXTROSE 5% 100 ML IV SCH ×3 (00:02→16:45)
[2019-12-03 06:22] LABS: Hematocrit (blood only) 24.9 % (37-47); Hemoglobin 8.1 g/dL (12.0-16.0); Mean Corpuscular Hgb Conc 32.5 g/dL (32-36); Mean Corpuscular Volume 95.4 fL (80-100); Mean Platelet Volume 10.6 fL (7.4-10.4); Platelet Count 343 K/uL (130-400); RDW Coefficient of Variation 19.9 % (11.5-14.5); RDW Standard Deviation 63.6 fL (36.4-46.3); Red Blood Count 2.61 M/uL (4.2-5.4); White Blood Count 9.28 K/uL (4.8-10.8)
[2019-12-03 06:50] LABS: Basophils # (auto) 0.06 K/uL (0-0.2); Basophils % (auto) 0.6 %; Eosinophils # (auto) 0.16 K/uL (0-0.5); Eosinophils % (auto) 1.7 %; Immature Granulocytes # (auto) 0.18 K/uL (0.00-0.02); Immature Granulocytes % (auto) 1.9 %; Lymphocytes # (auto) 0.53 K/uL (1.2-3.4); Lymphocytes % (auto) 5.7 %; Monocytes # (auto) 0.58 K/uL (0.11-0.59); Monocytes % (auto) 6.3 %; Neutrophils # (auto) 7.77 K/uL (1.4-6.5); Neutrophils % (auto) 83.8 %; Polychromasia 1+
[2019-12-03 07:02] LABS: BUN Creatinine Ratio 66.8 (10-20); Calcium 7.5 mg/dl (8.5-10.1); Est GFR (African American) 135.5; Est GFR (Non-African American) 116.9; Potassium 3.5 mmol/L (3.5-5.1)
[2019-12-03] MEDS: FERROUS SULFATE 325 MG/7.4 ML UDP PO SCH (08:07)
[2019-12-03] MEDS: MULTI VIT W/MINERALS LIQUID 15 ML UDP NG SCH (08:07)
[2019-12-03] MEDS: MIDODRINE HCL 10 MG TAB PO SCH ×3 (08:07→16:46)
[2019-12-03] MEDS: POT PHOSPHATE MONOBASIC W/ SOD TAB NG SCH ×2 (08:07→20:34)
[2019-12-03] MEDS: FLUOXETINE HCL 20 MG/5 ML UDP NG SCH (08:07)
[2019-12-03] MEDS: POTASSIUM CHLORIDE 20 MEQ/15 ML UDC PO SCH ×2 (08:07→20:35)
[2019-12-03] MEDS: MAGNESIUM OXIDE 400 MG TAB PO SCH ×2 (08:07→20:34)
[2019-12-03] MEDS: ASCORBIC ACID 500 MG TAB PO SCH (08:08)
[2019-12-03] MEDS: LANSOPRAZOLE 30 MG SOLTAB PEG SCH (08:08)
[2019-12-03] MEDS: THIAMINE HCL 100 MG TAB NG SCH ×2 (08:08→20:34)
[2019-12-03] MEDS: LOPERAMIDE LIQUID 120 ML BOTTLE PO PRN (08:09)
[2019-12-03] MEDS: ASPIRIN 81 MG CHEW NG SCH (08:09)
--- NOTE | 2019-12-03 09:49 | Hospitalist Progress Note ---
Date of Service December 03, 2019 Assessment & Plan (1) Retroperitoneal hemorrhage: This patient is a 49-year-old female with a Hx of stroke in May 2019, Crohn's disease, depression, with LLE DVT and multiple bilateral PEs. She has had a prolonged hospital stay due to a spontaneous retroperitoneal hemorrhage and septic shock secondary to a UTI. Her course has also been complicated by profound protein calorie malnutrition and hypoalbuminemia with anasarca and new onset seizure on 11/24. Sepsis with Septic Shock - Resolving - Treated with Zybrexa for sepsis/UTI. Treated with Zybrexa x7 days. Will discontinue today (12/02). - NG tube placed 11/21/19 due to poor nutrition; NG tube still in place --> will increase tube feeds and work towards restarting PO intake - Pt refusing PEG tube - Nutrition is on case/consulted to assist with nutrition and tube feeds. Appreciate their recommendations and assistance. - PT/OT/ST for evaluation and therapy as indicated - CRAB BUTCHER evaluated 12/02/19 per note, recommendations are as follows: - easy to chew diet - pt will need fed all meals - discontinue feeding through NG tube as directed by physician and dietary - safe swallow strategies (small bites, small sips, slow rate) - aspiration precautions as outlined - fully upright and alert for any intake and cue for swallow if noting oral hold - clean mouth after intake and check for pocketing - Will start advancing diet with easy to chew diet and thin liquids starting with dinner tonight - PT -- recommending trial of acute care PT at frequency of 2-3 days/week progressing as per her tolerance. Recommend return to [facility] when medically stable. - Recommend that nursing add 250 cc water w/ tube feeds to increase hydration status. Also recommend that nursing urge patient to increase fluid PO intake for hydration. - Strongly urged patient to try to start eating/drinking by mouth Diarrhea - Pt with negative c. diff test on 11/22/2019 but due to worsening diarrhea - Nursing reports increasing frequency of watery diarrhea - Will retest for c. diff - If c. diff is negative, plan for trial of probiotic - Rectal tube in place due to frequent diarrhea and sacral sores; will consult wound care Retroperitoneal Bleed - Hgb stable at this time - Pt asymptomatic at this time and denies lightheadedness, dizziness, BULLOCK, or nausea - follow CBC daily Seizure -new onset; ertapenem as potential cause, will hold ertapenem -EEG completed -- no signs of seizure activity at that time -appreciate neurology consult and recommendations PE -IVC filter in place currently Anasarca -due to profound hypoalbuminemia Hemiplegia and hemiparesis following cerebral infarction affecting right dominant side: - secondary to large left MCA stroke and small right MCA stroke with asymptomatic hemorrhagic conversion as per notes from [facility] GERD (gastroesophageal reflux disease): - Continue pantoprazole through the IV Major depressive disorder: -Continue fluoxetine, mirtazapine CODE STATUS: DNR/DNI Admission and Anticipated Discharge Date Admission Date: November 11, 2019 Supervising Physician Co-Signing Physician Notes I personally examined the patient and verified all armstrong points of history and exam, discussed case, and agree with decision making with Dr Lugo. diarrhea, belly hurts a little. admits to still not doing all that great with getting in much nutrition PO. tolerating tube feeds. extensive discussion w lap layer and input greatly appreciated vitals noted nad heent nc at mmm breathing unlabored NGT without breakdown. abd soft nd mild diffuse tenderness no guarding no rebound. shock/UTI/sepsis/retroperitoneal bleed/seizure - continue current care. appears to be recovered from septic shock and retroperitoneal bleed. ertapenem as probable culprit for seizure diarrhea - likely abx related, less likely tube feed intolerance. since on abx and in hospital - check Cdiff. since she has been on zerbaxa for 7 days and sepsis appears clinically resolved - will stop. if Cdiff negative can give trial to probiotic to help as well. malnutrition - this is the biggest usp concern at this time. she was quite ill so concerned on not letting her worsen - hence tube feeds for now (the fact that she showed some refeeding -- now improving -- does legitimize the concern on not letting her fall behind more); however, she has repeatedly stated to multiple providers (including myself today) that she would not want a PEG tube - so NGT is really just a "short term fix" to ensure she is getting adequate nutrition for now (but only for now). at some point, since she doesn't want PEG, we'll need to get her to where she is eating well enough on her own. the secondary problem is (of course) that the tube feeds themselves may be suppressing her appetite and therefore causing her to not eat as much as she might (but are at least ensuring nutritional support for the time being). by ~12/04 NG will have been in about 2wks - probably by then will want to dc tube around then (will have given several days of decent nutrition to have more margin of error should she struggle) and see how well she does on her own -- then if poorly consider appetite stimulant vs re-discussing PEG vs re-discussing a more palliative approach. otherwise as above Subjective Patient seen and evaluated in room today. She appears to be resting comfortably, laying in bed watching TV. Patient admits that she has not been taking in much oral intake but she states that she has been drinking more, specifically juice and ensure. She reports some nausea and states that she just doesn't feel hungry. Per nursing staff, patient has had increasing frequency and more watery stool output; specifically, nursing reports ~10 episodes of large watery stool output yesterday within 12 hours. The stool does not have foul odor. Patient does have a rectal tube in now due to frequent defecation and sores on her bottom secondary to the frequent stools. Patient denies chest pain, SOB, abdominal pain, or vomiting. Review of Systems Constitutional: no fever and no fatigue Respiratory: no cough and no dyspnea Cardiovascular: no chest pain Gastrointestinal: + nausea and + diarrhea/loose stools; no abdominal pain and no vomiting Neurologic: no headache(s) Physical Exam Physical Exam: GENERAL: No acute distress. Vital signs reviewed as above. HENT: Head is normocephalic. Dry mucous membranes. NG tube in place. RESPIRATORY: Some diffuse crackles throughout in left upper lung correa. Otherwise CTA. CARDIOVASCULAR: Regular rate and rhythm. ABDOMEN: Soft. Mild diffuse TTP. No palpable masses. Normal bowel sounds. EXTREMITIES: 3+ bilateral lower extremity edema with no TTP. NEUROLOGIC: Right upper extremity hemiparesis c/w previous stroke. Results & Data Results & [facility] ([facility]) Vital Signs (Past 12 Hours) Vital Signs Temp Pulse Pulse Resp BP Pulse Ox 12/03/19 08:00 37 C 86 18 106/71 98 12/02/19 23:49 37.3 C 93 H 18 103/66 92
[2019-12-03 12:34] LABS: Hematocrit (blood only) 27.3 % (37-47); Hemoglobin 8.6 g/dL (12.0-16.0)
[2019-12-03] MEDS: PROSOURCE NO CARB 30 ML/PKT NG SCH (16:47)
--- NOTE | 2019-12-03 16:52 | Billing Data ---
Date of Service December 03, 2019 Coding Level of Care Code 77250 Subseq Hosp Care Lvl 3
[2019-12-03] MEDS: MIRTAZAPINE TAB 15 MG TAB NG SCH (20:34)
[2019-12-03] MEDS: ATORVASTATIN 40 MG TAB NG SCH (20:34)
[2019-12-03] MEDS: PEPTAMEN INTENSE VHP 1.0 CAL 1,000 ML BAG GT SCH (20:53)
[2019-12-04 06:37] LABS: Basophils # (auto) 0.05 K/uL (0-0.2); Basophils % (auto) 0.5 %; Eosinophils # (auto) 0.21 K/uL (0-0.5); Eosinophils % (auto) 2.2 %; Hematocrit (blood only) 28.3 % (37-47); Hemoglobin 8.8 g/dL (12.0-16.0); Immature Granulocytes # (auto) 0.06 K/uL (0.00-0.02); Immature Granulocytes % (auto) 0.6 %; Lymphocytes # (auto) 0.51 K/uL (1.2-3.4); Lymphocytes % (auto) 5.4 %; Mean Corpuscular Hemoglobin 30.2 pg (25-34); Mean Corpuscular Hgb Conc 31.1 g/dL (32-36); Mean Corpuscular Volume 97.3 fL (80-100); Mean Platelet Volume 10.4 fL (7.4-10.4); Monocytes # (auto) 0.46 K/uL (0.11-0.59); Monocytes % (auto) 4.9 %; Neutrophils # (auto) 8.17 K/uL (1.4-6.5); Neutrophils % (auto) 86.4 %; Platelet Count 483 K/uL (130-400); RDW Coefficient of Variation 20.4 % (11.5-14.5); RDW Standard Deviation 66.6 fL (36.4-46.3); Red Blood Count 2.91 M/uL (4.2-5.4); White Blood Count 9.46 K/uL (4.8-10.8)
[2019-12-04 07:11] LABS: BUN Creatinine Ratio 76.5 (10-20); Blood Urea Nitrogen 24 mg/dl (7-18); Calcium 7.7 mg/dl (8.5-10.1); Carbon Dioxide 27 mmol/L (21-32); Chloride 114 mmol/L (98-107); Creatinine Clr Calc Pharmacy 228.6 ml/min; Est GFR (African American) > 150.0; Est GFR (Non-African American) 131.2; Glucose 93 mg/dl (70-99); Potassium 3.9 mmol/L (3.5-5.1); Sodium 144 mmol/L (136-145)
[2019-12-04 07:23] LABS: Anisocytosis Present; Basophilic Stippling 1+; Polychromasia 1+
--- NOTE | 2019-12-04 08:12 | Hospitalist Progress Note ---
Date of Service December 04, 2019 Assessment & Plan (1) Retroperitoneal hemorrhage: This patient is a 49-year-old female with a Hx of stroke in May 2019, Crohn's disease, depression, with LLE DVT and multiple bilateral PEs. She has had a prolonged hospital stay due to a spontaneous retroperitoneal hemorrhage and septic shock secondary to a UTI. Her course has also been complicated by profound protein calorie malnutrition and hypoalbuminemia with anasarca and new onset seizure on 11/24. Feeding disorder- - NG tube placed 11/21/19 due to poor nutrition; NG tube remains in place through today - MAG[employer] M[employer] OPERATOR evaluation on 12/02/19, with recommendations as follows: - easy to chew diet - pt will need fed all meals - discontinue feeding through NG tube as directed by physician and dietary - safe swallow strategies (small bites, small sips, slow rate) - aspiration precautions as outlined - fully upright and alert for any intake and cue for swallow if noting oral hold - clean mouth after intake and check for pocketing - Nutrition actively following to assist with nutrition and tube feeds. Appreciate their recommendations and assistance. - Nutrition planning: - Spent significant amount of time discussing nutritional needs going forward. Patient understands that NG tube is not a permanent solution and that she has the capacity for PO intake. - Palliative also saw patient and discussed this -- at the time of this discussion, patient was willing to have NG out - On revisit she is still hesitant to have the NG tube removed and would not like to make changes today - She expressed on multiple occasions they would not like a PEG as primary mode of nutrition - Encourage PO intake of yogurt, soft foods as much as possible -- revisit tomorrow, lesa - Continue easy to chew diet and thin liquids - Fluoxetine 20mg PO increased to 40mg PO daily as method to increase appetite, mood, and support nutrition Diarrhea - Pt with negative c. diff test on 11/22/2019 - In the days preceding 12/02, nursing reported increasing frequency of watery diarrhea - Retest of C. diff on 12/02 came back negative - Probiotics daily - Rectal tube in place due to frequent diarrhea and sacral sores; wound care consulted Sepsis with Septic Shock: Clinically Resolved - Treated with ceftolozane/tazobactam x 7 days, discontinued on 12/02 Retroperitoneal Bleed - Hgb continues to be stable at 8.8 and improving on a day-by-day basis (8.6 yesterday) - follow CBC daily New-onset seizure, likely precipitated by combination of sepsis and ertapenem - Seen by neurology 11/29 - seizure thought to be 2/2 sepsis and being on ertapenem - Per neurology - if seizure recurs, Keppra 1g IV loading followed by Keppra 500mg b.i.d. New Pulmonary Embolism noted on admission - s/p IVC filter placement on 11/15/19 - Anticoagulation deferred due to bleeding risk with prior MCA stroke w/ hemorrhagic conversion & retroperitoneal bleed Severe malnutrition -Hypoalbuminemia, complicated by anasarca - Clinically still present on exam most notably in the form of lower extremity peripheral edema (2-3+ b/l) - due to profound hypoalbuminemia -- last measured on 11/23, reported at 1.2 Hemiplegia and hemiparesis following cerebral infarction affecting right dominant side (may 2019): - secondary to large left MCA stroke and small right MCA stroke with asymptomatic hemorrhagic conversion as per notes from [facility] GERD (gastroesophageal reflux disease): - Continue pantoprazole through the IV Major depressive disorder: - Increase fluoxetine 20mg PO daily --> 40mg PO daily - Continue mirtazipine 15mg PO qPM Dispo: Med/Surg PT: Recommending trial of acute care PT at frequency of 2-3 days/week progressing as per her tolerance. Recommend return to [facility] when medically stable. F/E/N: NG tube in-place PPX: Previously on heparin > lovenox > warfarin. Held d/t recent CVA and retroperitoneal hemorrhage. Now -- IVC filter and IV pantoprazole, as above CODE STATUS: DNR/DNI Admission and Anticipated Discharge Date Admission Date: November 11, 2019 Supervising Physician Co-Signing Physician Notes Resident Physician Supervision Note: I independently interviewed and examined the patient and verified the armstrong history and physical, reviewed labs and image studies, discussed the case with the resident Dr. Peterson and agree with the findings and care plan. Subjective No acute events overnight. At the bedside this morning, patient reports feeling comfortable and without any pain. She says that she has continued to consume liquids without any difficulty with her NG tube in place, denying any pain. When asked about her appetite, she reports that she does not feel hungry. With regards to her frequent diarrhea, Ileana does have a rectal tube in place, but feels like things may be getting better; unfortunately, nursing does report that she continues to fill express significant amounts of stool. She denies any chest pain, shortness of breath, or vomiting. Update (4:40pm): Patient reports feeling well overall - although communication is limited, she denies any acute problems or concerns she wants to discuss. Dr. Gutierrez with Palliative Care came by earlier and Ileana said the conversation went well. Upon revisiting the topic, Ileana denies wanting to have the NG tube out. She says that the yogurt she attempted to eat earlier did not go down well -- she is worried about painful swallowing. She is eager, however, to try again. Physical Exam Constitutional: Upon entering the room, patient is sleeping comfortably. She converses in limited sentences, Which apparently is baseline for her. She is afebrile and not in any acute distress. Respiratory: normal respiratory effort, lungs clear to auscultation Cardiovascular: Normal rate and regular rhythm, S1 and S2 present without any murmurs rubs or gallops. Of note she does have about 2+ pitting edema bilaterally in the lower extremities, With some tenderness to palpation. When asked if this is different or new than in the past, patient says no. Results & Data Results & Data ([facility]) Vital Signs (Past 12 Hours) Vital Signs Temp Pulse Resp BP Pulse Ox 12/04/19 07:13 36.7 C 83 20 104/69 97 12/03/19 22:37 37.0 C 83 18 118/77 95 Resident Activity Tracking Resident Involvement: Resident Care Provided Care Provided: Adult Hospital Medicine
[2019-12-04] MEDS: ASCORBIC ACID 500 MG TAB PO SCH (08:46)
[2019-12-04] MEDS: MIDODRINE HCL 10 MG TAB PO SCH ×3 (08:47→16:56)
[2019-12-04] MEDS: LANSOPRAZOLE 30 MG SOLTAB PEG SCH (08:47)
[2019-12-04] MEDS: POT PHOSPHATE MONOBASIC W/ SOD TAB NG SCH ×2 (08:48→20:59)
[2019-12-04] MEDS: MULTI VIT W/MINERALS LIQUID 15 ML UDP NG SCH (08:48)
[2019-12-04] MEDS: THIAMINE HCL 100 MG TAB NG SCH ×2 (08:48→20:59)
[2019-12-04] MEDS: MAGNESIUM OXIDE 400 MG TAB PO SCH ×2 (08:48→20:59)
[2019-12-04] MEDS: FLUOXETINE HCL 20 MG/5 ML UDP NG SCH ×2 (08:49→11:41)
[2019-12-04] MEDS: POTASSIUM CHLORIDE 20 MEQ/15 ML UDC PO SCH ×2 (08:49→21:00)
[2019-12-04] MEDS: FERROUS SULFATE 325 MG/7.4 ML UDP PO SCH ×2 (08:49→10:33)
[2019-12-04] MEDS: LOPERAMIDE LIQUID 120 ML BOTTLE PO PRN (08:55)
[2019-12-04] MEDS: ASPIRIN 81 MG CHEW NG SCH (10:33)
--- NOTE | 2019-12-04 13:59 | Palliative Care Progress Note ---
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 Patient was at [facility] from 06/08- 06/28 and was transferred to [facility]. Patient was at [facility] until 07/25 when she was transferred to [facility] for further therapies. Patient was sent to [facility] on 11/09 for tachycardia, hypotension, and mild hypoxia. Patient's O2 sats were 88%, heart rate was between 150 and 170. Patient received IV hydration for hypotension- also required pressors, was weaned off pressors on 11/24, pressors were restarted. Patient had an echo which was within normal limits on 11/10, she had a recent colonoscopy with EGD prior to this admission 11/08 due to history of GERD and Crohn's-no abnormalities were found, biopsies were negative for malignancy or any acute issues. Due to hypoxia patient underwent a CTA that showed bilateral emboli with a moderate to large pleural effusion-she had her left pleural effusion tapped on 11/22-was 600 cc removed. Pleural fluid studies showed transudate. Patient had a Doppler was found to have a left distal nonocclusive popliteal vein thrombosis. Patient had been on Lovenox at [facility]. Patient was not on full AC due to prior CVA with hemorrhagic conversion in May. An IVC filter was placed on 11/14. While in the hospital she continued to be tachycardic with low blood pressures, she had decreased urine output and increased edema and was transferred to the ICU on 11/13. Patient's albumin on admission was 0.8, her hemoglobin continued to drop-she was found to have right retroperitoneal bleed extending into the muscle on 11/19-she was transfused 2 units on 11/21 for hemoglobin of 7.1. On 11/24 patient exhibited seizure activity- even though she is at risk for seizures due to her stroke she had not had any prior, it was felt that may be ertapenem had triggered a seizure-this was discontinued and patient was placed on Zerbaxa for ESBL E. coli UTI. Patient was noted to have a UTI prior to admission-despite antibiotics her urine was still positive on 11/21. -Saw patient in room 278-patient Much more alert, able to say a few words. Is at her prior baseline when she was initially discharged from [facility] - CODE STATUS changed to DNR/DNI on 11/26. -Also spoke with patient regarding transition to comfort care on the last several visits. Today she did indicate she does not want to keep coming to the hospital. Patient would like to return to [facility] skilled if possible, is amenable to comfort care/hospice. Patient would like to continue to eat what she can orally, discontinue the NG tube, understands that by not eating enough by mouth, she will decline again. -Nutrition-patient was taking some p.o., had been on dronabinol 5 mg 3 times daily at [facility]-was eating very little, is currently on NG tube feeds. Patient had previously made statements regarding no PEG tube-patient did indicate those continue to be her current wishes. - Spoke with patient's mother last week-mother stated she would agree with what ever Ileana wants. -Patient was started on Prozac after her stroke for neuro restorative as well as depressive symptoms-she had been doing well at [facility]. -CVA-patient with dense right hemiparesis. Patient's expressive aphasia and dysphagia had improved while at [facility] -patient appears to have returned to her prior baseline mental status on exam today -Will continue to follow and assist patient and family with medical decision making. PPS-30% (2) Hemiplegia and hemiparesis following cerebral infarction affecting right dominant side: (3) Deep vein thrombosis (DVT) of popliteal vein of left lower extremity: Not a candidate for AC (4) S/P insertion of IVC (inferior vena caval) filter: (5) Protein calorie malnutrition: Poor p.o. intake, had been on dronabinol prior to admission (6) Retroperitoneal bleed: Hemoglobin stable (7) UTI (urinary tract infection): E. coli ESBL-on IV Zerbaxa (8) Dysphagia: Able to take some p.o. (9) New onset seizure: (10) Pleural effusion: Status post Tap-600 cc removed on 11/22 (11) Hypotension: On midodrine 10 mg 3 times daily (12) Anasarca: Continue diuresis Admission and Anticipated Discharge Date Admission Date: November 11, 2019 Subjective Patient awake and very alert, able to say a few words. Patient is back to her prior baseline that I knew when she had done rehab at [facility] prior to transfer to [facility]. Have been speaking with patient over the last week regarding transition to comfort care- Patient did report that she does not want to keep coming to the hospital with NG feeds when she does not take p.o. well. She amenable to comfort/hospice care. Spoke with case management regarding if patient has the ability to be skilled at [facility] and then transition to hospice. sugar plantation manager will discuss with Gove Oanh determine if patient can return s killed. Patient is currently on a bed hold. Patient sitting up in bed-has a regular diet on her bedside table, is taking a few bites. Review of Systems Review of Systems: Patient denies fever, chills, chest pain, shortness of breath, or abdominal pain Positive for diarrhea/loose stools-patient on tube feeds Physical Exam Physical Exam: PE: Patient awake, alert and oriented, no acute distress HEENT: EOMI, NG tube in place. Respiratory: Unlabored, stable on room air CV: Regular rate, No increased edema Abdomen: Soft, nontender. Rectal tube in place : Plata catheter in place Neuro: Alert and oriented, able to make her own medical decisions Results & Data ([facility]) Vital Signs (Past 12 Hours) Vital Signs Temp Pulse Resp BP Pulse Ox 12/04/19 07:13 98.1 F 83 20 104/69 97 PG Care Time/CCT Total # of Minutes Spent Total Time Spent with Patient: Total time spent 35 minutes with greater than 50% of the time spent at bedside discussing patient's goals of care and collaborating with case management as well as attending team. Coding Level of Care Code 25623 Subseq Hosp Care Lvl 3 Diagnoses Goals of care, counseling/discussion Z71.89 Hemiplegia and hemiparesis following cerebral infarction affecting right dominant side I69.351 Deep vein thrombosis (DVT) of popliteal vein of left lower extremity I82.432 S/P insertion of IVC (inferior vena caval) filter Z95.828 Protein calorie malnutrition E46 Retroperitoneal bleed R58 UTI (urinary tract infection) N30.01 Hematuria presence: with hematuria Urinary tract infection type: acute cystitis Dysphagia R13.10 New onset seizure R56.9 Pleural effusion J90 Hypotension I95.9 Anasarca R60.1 Time Spent (min) 35 (1) UTI (urinary tract infection) Hematuria presence: with hematuria Urinary tract infection type: acute cystitis Qualified Code(s): N30.01 - Acute cystitis with hematuria
[2019-12-04] MEDS: PROSOURCE NO CARB 30 ML/PKT NG SCH (16:57)
[2019-12-04] MEDS: MIRTAZAPINE TAB 15 MG TAB NG SCH (20:59)
[2019-12-04] MEDS: ATORVASTATIN 40 MG TAB NG SCH (20:59)
[2019-12-04] MEDS: PEPTAMEN INTENSE VHP 1.0 CAL 1,000 ML BAG GT SCH (21:20)
[2019-12-05 06:10] LABS: Basophils # (auto) 0.09 K/uL (0-0.2); Eosinophils # (auto) 0.11 K/uL (0-0.5); Eosinophils % (auto) 1.3 %; Hematocrit (blood only) 26.2 % (37-47); Hemoglobin 8.2 g/dL (12.0-16.0); Immature Granulocytes # (auto) 0.04 K/uL (0.00-0.02); Immature Granulocytes % (auto) 0.5 %; Lymphocytes # (auto) 0.51 K/uL (1.2-3.4); Lymphocytes % (auto) 5.9 %; Mean Corpuscular Hemoglobin 30.5 pg (25-34); Mean Corpuscular Hgb Conc 31.3 g/dL (32-36); Mean Corpuscular Volume 97.4 fL (80-100); Mean Platelet Volume 9.7 fL (7.4-10.4); Monocytes # (auto) 0.56 K/uL (0.11-0.59); Monocytes % (auto) 6.5 %; Neutrophils # (auto) 7.31 K/uL (1.4-6.5); Neutrophils % (auto) 84.8 %; Platelet Count 544 K/uL (130-400); RDW Coefficient of Variation 20.7 % (11.5-14.5); RDW Standard Deviation 68.1 fL (36.4-46.3); Red Blood Count 2.69 M/uL (4.2-5.4); White Blood Count 8.62 K/uL (4.8-10.8)
[2019-12-05 06:29] LABS: Anisocytosis Present; Polychromasia 1+
--- NOTE | 2019-12-05 06:40 | Hospitalist Progress Note ---
Date of Service December 05, 2019 Assessment & Plan (1) Retroperitoneal hemorrhage: This patient is a 49-year-old female with a Hx of stroke in May 2019, Crohn's disease, depression, with LLE DVT and multiple bilateral PEs. She has had a prolonged hospital stay due to a spontaneous retroperitoneal hemorrhage and septic shock secondary to a UTI. Her course has also been complicated by profound protein calorie malnutrition and hypoalbuminemia with anasarca and new onset seizure on 11/24. Feeding disorder - - NG tube placed 11/21/19 due to poor nutrition; NG tube remains in place through today - [employer] evaluation on 12/02/19, with recommendations as follows: - easy to chew diet - pt will need fed all meals - discontinue feeding through NG tube as directed by physician and dietary - safe swallow strategies (small bites, small sips, slow rate) - aspiration precautions as outlined - fully upright and alert for any intake and cue for swallow if noting oral hold - clean mouth after intake and check for pocketing - Nutrition actively following to assist with nutrition and tube feeds. Appreciate their recommendations and assistance. - Fluoxetine 20mg PO increased to 40mg PO daily as method to increase appetite, mood, and support nutrition - Nutrition planning: - Patient has successfully combined PO intake and NG tubes over the last 2 days -After several days of discussion, patient opted for NG tube removal today. Dr. Peter was present for this conversation. Patient understands the importance of p.o. intake following removal. - Continue easy to chew diet and thin liquids while transitioning to [facility] Diarrhea - Pt with negative c. diff test on 11/22/2019 - In the days preceding 12/02, nursing reported increasing frequency of watery diarrhea - Retest of C. diff on 12/02 came back negative - Probiotics daily - Rectal tube in place due to frequent diarrhea and sacral sores; wound care following - Case management is in the process of determining if [facility] can manage Transaminitis, mild - Today: AST 122 / ALT 94 / AlkPhos 166 - Last LFTs (11/23): AST 15 / ALT 7 / AlkPhos 41 - Suspect this mild transaminitis is likely 2/2 resolving hepatic damage from recent septic shock episode (resolved) - Malnutrition may also be contributory; no current or concerning signs for cholecystitis - CMP tomorrow to trend Sepsis with Septic Shock: Clinically Resolved - Treated with ceftolozane/tazobactam x 7 days, discontinued on 12/02 Retroperitoneal Bleed - Hgb continues to be stable at 8.2 and improving on a day-by-day basis (8.8 yesterday) - follow CBC daily New-onset seizure, likely precipitated by combination of sepsis and ertapenem - Seen by neurology 11/29 - seizure thought to be 2/2 sepsis and being on ertapenem - Per neurology - if seizure recurs, Keppra 1g IV loading followed by Keppra 500mg b.i.d. Pulmonary Embolism - s/p IVC filter placement on 11/15/19 - Anticoagulation deferred due to bleeding risk with prior MCA stroke w/ hemorrhagic conversion & retroperitoneal bleed Malnutrition/Hypoalbuminemia, complicated by anasarca - Clinically still present on exam most notably in the form of lower extremity peripheral edema (2-3+ b/l) - due to profound hypoalbuminemia in setting of malnutrition -- current albumin 1.2 (12/04) Hemiplegia and hemiparesis following cerebral infarction affecting right dominant side: - secondary to large left MCA stroke and small right MCA stroke with asymptomatic hemorrhagic conversion as per notes from [facility] GERD (gastroesophageal reflux disease): - Continue pantoprazole through the IV Major depressive disorder: - Increase fluoxetine 20mg PO daily --> 40mg PO daily - Continue mirtazipine 15mg PO qPM Dispo: Med/Surg-- anticipate discharge tomorrow (12/05) to [facility] D/C planning: certified orthotist practice manager determining whether or not [facility] can manage rectal tube that is currently in place. PT: Recommending trial of acute care PT at frequency of 2-3 days/week progressing as per her tolerance. Recommend return to [facility] when medically stable. F/E/N: NG tube in-place PPX: Previously on heparin > lovenox > warfarin. Held d/t recent CVA and retroperitoneal hemorrhage. Now -- IVC filter and IV pantoprazole, as above CODE STATUS: DNR/DNI Admission and Anticipated Discharge Date Admission Date: November 11, 2019 Supervising Physician Co-Signing Physician Notes Resident Physician Supervision Note: I independently interviewed and examined the patient and verified the armstrong history and physical, reviewed labs and image studies, discussed the case with the resident Dr. Peterson and agree with the findings and care plan. Subjective No acute events overnight. Patient reports feeling well at the bedside this morning, without any concerns. She had breakfast in front of her upon visiting, and she reported that eating still takes a while and produces a little soreness in the back of her mouth, but is getting easier compared to before. No nausea or vomiting. Denies any dysphagia or trouble swallowing. Denies any pain elsewhere. Denies any chest pressure or shortness of breath. Review of Systems Constitutional: no fever and no chills Respiratory: + dyspnea on exertion; no cough Cardiovascular: no chest pain, no palpitations and no edema Gastrointestinal: no abdominal pain, no nausea and no vomiting Physical Exam Constitutional: Patient is awake, smiling, and has breakfast in front of her upon visiting this morning. General impression is that she is alert and oriented, continues to be aphasic at baseline. No acute distress ENMT: Limited view of the oropharynx using a tongue depressor and flashlight. Upon visualization, no erythema or concerning lesions or ulcers were noted. Respiratory: Good respiratory effort with symmetric expansion of the chest. Her lungs are clear to auscultation bilaterally without any crackles or wheezes. Cardiovascular: Normal rate and regular rhythm. S1 and S2 are present without any murmurs rubs or gallops. There continues to be 2+ pitting edema in lower extremities bilaterally. Gastrointestinal (Abdomen): The abdomen is soft, nondistended, and very mildly and diffusely tender to palpation Neurologic: Expressive aphasia at baseline, unchanged since previous exam. Psychiatric: A+Ox3, euthymic affect Results & Data Results & Data ([facility]) Vital Signs (Past 12 Hours) Vital Signs Temp Pulse Resp BP Pulse Ox 12/04/19 22:58 37.1 C 97 H 18 116/74 92 Resident Activity Tracking Resident Involvement: Resident Care Provided Care Provided: Adult [facility]
[2019-12-05 06:52] LABS: Alanine Aminotransferase 94 U/L (12-78); Albumin Level 1.2 gm/dl (3.4-5.0); Aspartate Aminotransferase 122 U/L (15-37); BUN Creatinine Ratio 75.3 (10-20); Blood Urea Nitrogen 21 mg/dl (7-18); Calcium 7.7 mg/dl (8.5-10.1); Carbon Dioxide 28 mmol/L (21-32); Chloride 114 mmol/L (98-107); Creatinine Clr Calc Pharmacy 253.1 ml/min; Est GFR (African American) > 150.0; Est GFR (Non-African American) 135.6; Glucose 88 mg/dl (70-99); Sodium 145 mmol/L (136-145)
[2019-12-05 06:55] LABS: Albumin Globulin Ratio 0.3 (0.9-2); Alkaline Phosphatase 166 U/L (45-117); Bilirubin,Total 0.7 mg/dl (0.2-1); Globulin 3.5 gm/dl (2.5-4.0); Total Protein 4.7 gm/dl (6.4-8.2)
[2019-12-05] MEDS: POTASSIUM CHLORIDE 20 MEQ/15 ML UDC PO SCH ×2 (08:35→21:23)
[2019-12-05] MEDS: ASCORBIC ACID 500 MG TAB PO SCH (08:35)
[2019-12-05] MEDS: MAGNESIUM OXIDE 400 MG TAB PO SCH ×2 (08:35→21:23)
[2019-12-05] MEDS: LACTOBACILLUS ACIDOPHILUS 1 GM PACK PO SCH ×3 (08:35→16:21)
[2019-12-05] MEDS: LANSOPRAZOLE 30 MG SOLTAB PEG SCH (08:36)
[2019-12-05] MEDS: MIDODRINE HCL 10 MG TAB PO SCH ×3 (08:36→16:20)
[2019-12-05] MEDS: FLUOXETINE HCL 20 MG/5 ML NG SCH (08:36)
[2019-12-05] MEDS: FERROUS SULFATE 325 MG/7.4 ML UDP PO SCH (08:36)
[2019-12-05] MEDS: POT PHOSPHATE MONOBASIC W/ SOD TAB NG SCH ×2 (08:36→21:23)
[2019-12-05] MEDS: MULTI VIT W/MINERALS LIQUID 15 ML UDP NG SCH (08:36)
[2019-12-05] MEDS: THIAMINE HCL 100 MG TAB NG SCH ×2 (08:44→21:23)
[2019-12-05] MEDS: ASPIRIN 81 MG CHEW NG SCH (08:44)
[2019-12-05] MEDS ORDERED: FLUOXETINE HCL 20 MG/5 ML UDP NG SCH (09:00)
--- NOTE | 2019-12-05 14:52 | Palliative Care Progress Note ---
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 Patient was at [facility] from 06/08- 06/28 and was transferred to [facility]. Patient was at [facility] until 07/25 when she was transferred to [facility] for further therapies. Patient was sent to [facility] on 11/09 for tachycardia, hypotension, and mild hypoxia. Patient's O2 sats were 88%, heart rate was between 150 and 170. Patient received IV hydration for hypotension- also required pressors, was weaned off pressors on 11/24, pressors were restarted. Patient had an echo which was within normal limits on 11/10, she had a recent colonoscopy with EGD prior to this admission 11/08 due to history of GERD and Crohn's-no abnormalities were found, biopsies were negative for malignancy or any acute issues. Due to hypoxia patient underwent a CTA that showed bilateral emboli with a moderate to large pleural effusion-she had her left pleural effusion tapped on 11/22-was 600 cc removed. Pleural fluid studies showed transudate. Patient had a Doppler was found to have a left distal nonocclusive popliteal vein thrombosis. Patient had been on Lovenox at [facility]. Patient was not on full AC due to prior CVA with hemorrhagic conversion in May. An IVC filter was placed on 11/14. While in the hospital she continued to be tachycardic with low blood pressures, she had decreased urine output and increased edema and was transferred to the ICU on 11/13. Patient's albumin on admission was 0.8, her hemoglobin continued to drop-she was found to have right retroperitoneal bleed extending into the muscle on 11/19-she was transfused 2 units on 11/21 for hemoglobin of 7.1. On 11/24 patient exhibited seizure activity- even though she is at risk for seizures due to her stroke she had not had any prior, it was felt that may be ertapenem had triggered a seizure-this was discontinued and patient was placed on Zerbaxa for ESBL E. coli UTI. Patient was noted to have a UTI prior to admission-despite antibiotics her urine was still positive on 11/21. -Saw patient in room 278-patient alert, able to say a few words. She is at her prior baseline when she was discharged from [facility] - CODE STATUS changed to DNR/DNI on 11/26. -Also spoke with patient regarding goals of care , she has accepted returning to [facility] on hospice care. Comfort measures only are her goal. -Nutrition-patient was taking some p.o., had been on dronabinol 5 mg 3 times daily at [facility]-was eating very little. Patient stated she would not want a PEG tube. - Spoke with patient's mother last week-mother stated she would agree with what ever Ileana wants. -CVA-patient with dense right hemiparesis. Patient's expressive aphasia and dys phagia had improved while at [facility] -patient appears to have returned to her prior baseline mental status on exam today -Will continue to follow and assist patient and family with medical decision making. PPS-30% (2) Hemiplegia and hemiparesis following cerebral infarction affecting right dominant side: (3) Deep vein thrombosis (DVT) of popliteal vein of left lower extremity: Not a candidate for AC (4) S/P insertion of IVC (inferior vena caval) filter: (5) Protein calorie malnutrition: Poor p.o. intake, had been on dronabinol prior to admission (6) Retroperitoneal bleed: Hemoglobin stable (7) UTI (urinary tract infection): E. coli ESBL-completed course of IV Zerbaxa (8) Dysphagia: Able to take some p.o. (9) New onset seizure: (10) Pleural effusion: Status post Tap-600 cc removed on 11/22 (11) Hypotension: On midodrine 10 mg 3 times daily (12) Anasarca: Continue diuresis Admission and Anticipated Discharge Date Admission Date: November 11, 2019 Subjective Patient awake and alert, no acute distress. Patient continues to be at her baseline mental status. Patient restated her wish to go back to [facility] on hospice. Patient has not required any as needed medication for pain, nausea or discomfort. Review of Systems Review of Systems: Patient denies fever, chills, chest pain, shortness of breath, or abdominal pain. Physical Exam Physical Exam: PE: Patient awake and alert, NAD HEENT: EOMI, hearing within normal limits. NG tube in place Respirations: Unlabored, clear breath sounds CV: Tachycardic, regular rate, 1+ on right, 2+ on the left Abdomen: Soft, nontender Neuro: Awake and alert, able to make her own medical decisions, expressive a aphasia-but able to communicate. Results & Data ([facility]) Vital Signs (Past 12 Hours) Vital Signs Temp Pulse Resp BP Pulse Ox 12/05/19 07:29 98.6 F 103 H 16 104/63 93 PG Care Time/CCT Total # of Minutes Spent Total Time Spent with Patient: Total time spent 35 minutes with greater than 50% of the time spent at bedside discussing patient's goals of care as well as collaborating with attending physician team Coding Level of Care Code 13523 Subseq Hosp Care Lvl 3 Diagnoses Goals of care, counseling/discussion Z71.89 Hemiplegia and hemiparesis following cerebral infarction affecting right dominant side I69.351 Deep vein thrombosis (DVT) of popliteal vein of left lower extremity I82.432 S/P insertion of IVC (inferior vena caval) filter Z95.828 Protein calorie malnutrition E46 Retroperitoneal bleed R58 UTI (urinary tract infection) N30.01 Hematuria presence: with hematuria Urinary tract infection type: acute cystitis Dysphagia R13.10 New onset seizure R56.9 Pleural effusion J90 Hypotension I95.9 Anasarca R60.1 Time Spent (min) 35 (1) UTI (urinary tract infection) Hematuria presence: with hematuria Urinary tract infection type: acute cystitis Qualified Code(s): N30.01 - Acute cystitis with hematuria
[2019-12-05] MEDS ORDERED: Nursing to Pharmacy Communication SCH (15:15)
[2019-12-05] MEDS: ACETAMINOPHEN 325 MG TAB PO PRN (16:21)
[2019-12-05] MEDS: PROSOURCE NO CARB 30 ML/PKT NG SCH (16:21)
[2019-12-05] MEDS: ATORVASTATIN 40 MG TAB NG SCH (21:22)
[2019-12-05] MEDS: MIRTAZAPINE TAB 15 MG TAB NG SCH (21:23)
[2019-12-06 06:03] LABS: Basophils # (auto) 0.12 K/uL (0-0.2); Basophils % (auto) 1.6 %; Eosinophils # (auto) 0.12 K/uL (0-0.5); Eosinophils % (auto) 1.6 %; Hemoglobin 7.9 g/dL (12.0-16.0); Immature Granulocytes # (auto) 0.02 K/uL (0.00-0.02); Immature Granulocytes % (auto) 0.3 %; Lymphocytes # (auto) 0.64 K/uL (1.2-3.4); Lymphocytes % (auto) 8.5 %; Mean Corpuscular Hemoglobin 30.9 pg (25-34); Mean Corpuscular Hgb Conc 31.6 g/dL (32-36); Mean Corpuscular Volume 97.7 fL (80-100); Monocytes # (auto) 0.38 K/uL (0.11-0.59); Neutrophils # (auto) 6.27 K/uL (1.4-6.5); Platelet Count 645 K/uL (130-400); RDW Coefficient of Variation 20.9 % (11.5-14.5); RDW Standard Deviation 69.2 fL (36.4-46.3); Red Blood Count 2.56 M/uL (4.2-5.4); White Blood Count 7.55 K/uL (4.8-10.8)
[2019-12-06 06:26] LABS: Anisocytosis Present; Polychromasia 1+
[2019-12-06 06:31] LABS: Alanine Aminotransferase 93 U/L (12-78); Albumin Level 1.2 gm/dl (3.4-5.0); Aspartate Aminotransferase 115 U/L (15-37); BUN Creatinine Ratio 61.3 (10-20); Blood Urea Nitrogen 16 mg/dl (7-18); Calcium 7.6 mg/dl (8.5-10.1); Carbon Dioxide 25 mmol/L (21-32); Chloride 114 mmol/L (98-107); Creatinine Clr Calc Pharmacy 272.4 ml/min; Est GFR (African American) > 150.0; Glucose 71 mg/dl (70-99); Potassium 3.9 mmol/L (3.5-5.1); Sodium 144 mmol/L (136-145)
[2019-12-06 06:34] LABS: Albumin Globulin Ratio 0.3 (0.9-2); Alkaline Phosphatase 160 U/L (45-117); Bilirubin,Total 0.6 mg/dl (0.2-1); Globulin 3.5 gm/dl (2.5-4.0); Total Protein 4.7 gm/dl (6.4-8.2)
[2019-12-06] MEDS: MIDODRINE HCL 10 MG TAB PO SCH ×3 (08:32→17:43)
[2019-12-06] MEDS: LACTOBACILLUS ACIDOPHILUS 1 GM PACK PO SCH ×3 (08:33→17:32)
[2019-12-06] MEDS: MAGNESIUM OXIDE 400 MG TAB PO SCH ×2 (08:33→21:50)
[2019-12-06] MEDS: ASCORBIC ACID 500 MG TAB PO SCH (08:33)
[2019-12-06] MEDS: POT PHOSPHATE MONOBASIC W/ SOD TAB NG SCH ×2 (08:33→21:50)
[2019-12-06] MEDS: FERROUS SULFATE 325 MG/7.4 ML UDP PO SCH (08:34)
[2019-12-06] MEDS: LANSOPRAZOLE 30 MG SOLTAB PEG SCH (08:34)
[2019-12-06] MEDS: THIAMINE HCL 100 MG TAB NG SCH ×2 (08:34→21:50)
[2019-12-06] MEDS: ASPIRIN 81 MG CHEW NG SCH (08:34)
[2019-12-06] MEDS: MULTI VIT W/MINERALS LIQUID 15 ML UDP NG SCH (08:35)
[2019-12-06] MEDS: FLUOXETINE HCL 20 MG/5 ML NG SCH (08:35)
[2019-12-06] MEDS: ACETAMINOPHEN 325 MG TAB PO PRN (08:36)
[2019-12-06] MEDS: POTASSIUM CHLORIDE 20 MEQ/15 ML UDC PO SCH ×2 (08:49→21:51)
[2019-12-06] MEDS ORDERED: CHLORASEPTIC 1.4% SOLN 180 ML BTL MT PRN (09:57)
--- NOTE | 2019-12-06 10:54 | Hospitalist Progress Note ---
Date of Service December 06, 2019 Assessment & Plan (1) Retroperitoneal hemorrhage: This patient is a 49-year-old female with a Hx of stroke in May 2019, Crohn's disease, depression, with LLE DVT and multiple bilateral PEs. She has had a prolonged hospital stay due to a spontaneous retroperitoneal hemorrhage and septic shock secondary to a UTI. Her course has also been complicated by profound protein calorie malnutrition and hypoalbuminemia with anasarca and new onset seizure on 11/24. Feeding disorder - NG tube placed 11/21/19 due to poor nutrition; NG tube remains in place through today - CLEARANCE REP evaluation on 12/02/19, with recommendations as follows: - easy to chew diet - pt will need fed all meals - discontinue feeding through NG tube as directed by physician and dietary - safe swallow strategies (small bites, small sips, slow rate) - aspiration precautions as outlined - fully upright and alert for any intake and cue for swallow if noting oral hold - clean mouth after intake and check for pocketing - Nutrition actively following to assist with nutrition and tube feeds. Appreciate their recommendations and assistance. - Fluoxetine 20mg PO increased to 40mg PO daily as method to increase appetite, mood, and support nutrition - Nutrition planning: -After several days of discussion, agreed NGT removal - 12/04 - Continue easy to chew diet and thin liquids while transitioning to [facility] - Utilize chloraseptic throat spray PRN for throat discomfort Prison goal - considering patients overall comorbidities - Palliative care consulted. - To discuss hospice/comfort care once back at SNF Erythematous rash, left antecubital fossa - Clinically, this is an erythematous rash with very mild desquamation at the lateral aspect of the left antecubital fossa, aside an IV site which does not seem to be affected - DDX: mild cellulitis vs. superficial phlebitis - Recommend cycling between icing / heat pads each day -- no need for ABX at this time Diarrhea - Pt with negative c. diff test on 11/22/2019 - In the days preceding 12/02, nursing reported increasing frequency of watery diarrhea - Retest of C. diff on 12/02 came back negative - Probiotics daily - Rectal tube in place due to frequent diarrhea and sacral sores; wound care following - Case management is in the process of determining if [facility] can manage Transaminitis, mild - LFTs continue to be stable today at AST 115 / ALT 93 / AlkPhos 160 - Yesterday: AST 122 / ALT 94 / AlkPhos 166 - Suspect this mild transaminitis is likely 2/2 resolving hepatic damage from recent septic shock episode (resolved), and possibly hepatic congestion - Malnutrition may also be contributory; no current or concerning signs for cholecystitis - Follow-up in the outpatient setting Sepsis with Septic Shock: Clinically Resolved - Treated with ceftolozane/tazobactam x 7 days, discontinued on 12/02 Retroperitoneal Bleed - Hgb continues to be stable at 8.2 and improving on a day-by-day basis (8.8 yesterday) - follow CBC daily New-onset seizure, likely precipitated by combination of sepsis and ertapenem - Seen by neurology 11/29 - seizure thought to be 2/2 sepsis and being on ertapenem - Per neurology - if seizure recurs, Keppra 1g IV loading followed by Keppra 500mg b.i.d. Pulmonary Embolism - s/p IVC filter placement on 11/15/19 - Anticoagulation deferred due to bleeding risk with prior MCA stroke w/ hemorrhagic conversion & retroperitoneal bleed Malnutrition/Hypoalbuminemia, complicated by anasarca - Clinically still present on exam most notably in the form of lower extremity peripheral edema (2-3+ b/l) - due to profound hypoalbuminemia in setting of malnutrition -- current albumin 1.2 (12/04) Hemiplegia and hemiparesis following cerebral infarction affecting right dominant side: - secondary to large left MCA stroke and small right MCA stroke with asymptomatic hemorrhagic conversion as per notes from [facility] GERD (gastroesophageal reflux disease): - Continue pantoprazole through the IV - Upon d/c, anticipate transition to pantoprazole 20mg PO qAM Major depressive disorder: - Increase fluoxetine 20mg PO daily --> 40mg PO daily - Continue mirtazipine 15mg PO qPM Dispo: Med/Surg-- anticipate discharge tomorrow (12/06) to [place] PT: Recommending trial of acute care PT at frequency of 2-3 days/week progressing as per her tolerance F/E/N: [id number] diet. NG tube removed. PPX: Previously on heparin > lovenox > warfarin. Held d/t recent CVA and retroperitoneal hemorrhage. Now -- IVC filter and IV pantoprazole, as above CODE STATUS: DNR/DNI Admission and Anticipated Discharge Date Admission Date: November 11, 2019 Supervising Physician Co-Signing Physician Notes Resident Physician Supervision Note: I independently interviewed and examined the patient and verified the armstrong history and physical, reviewed labs and image studies, discussed the case with the resident Dr. Peterson and agree with the findings and care plan. Subjective NAEO. Patient reports feeling well this morning. NG tube removed yesterday without complication. Patient reports that eating is going "ok" -- still some pain at the back of her throat during swallowing, has been able to get down [id number] solid foods without difficulty. Denies nausea or vomiting. Further denies any pain elsewhere. No chest pain, palpitations, or shortness of breath. Review of Systems Constitutional: no fever and no chills Respiratory: no cough and no dyspnea Cardiovascular: no chest pain and no palpitations Gastrointestinal: no abdominal pain, no nausea and no vomiting Physical Exam Constitutional: Well-appearing 49-year-old female who is sitting up in her hospital bed, relaxed, eating breakfast upon my arrival. She continues to have expressive aphasia, no changes from yesterday. No acute distress Respiratory: Good respiratory effort with symmetric expansion of the chest. On auscultation, there are rales heard throughout both lung correa bilaterally. Otherwise no crackles or wheezes. Cardiovascular: Normal rate and regular rhythm, S1 and S2 present without any murmurs rubs or gallops. Gastrointestinal (Abdomen): The abdomen is soft and nondistended. As it was yesterday, there is diffuse, very mild tenderness to palpation in all quadrants, no rebound or guarding. Alvarez's negative. Skin: There is focalized area of erythema with very mild desquamation just lateral to the left antecubital fossa that is slightly warm and tender to the touch. Results & Data Results & Data ([facility]) Vital Signs (Past 12 Hours) Vital Signs Temp Pulse Resp BP Pulse Ox 12/06/19 07:53 36.8 C 91 H 18 108/73 96 12/06/19 00:03 37 C 95 H 18 99/65 L 91 Resident Activity Tracking Resident Involvement: Resident Care Provided Care Provided: [facility]
[2019-12-06] MEDS: PROSOURCE NO CARB 30 ML/PKT NG SCH (16:07)
[2019-12-06] MEDS: ATORVASTATIN 40 MG TAB NG SCH (21:50)
[2019-12-06] MEDS: MIRTAZAPINE TAB 15 MG TAB NG SCH (21:50)
[2019-12-07] MEDS: THIAMINE HCL 100 MG TAB NG SCH (07:24)
[2019-12-07] MEDS: MAGNESIUM OXIDE 400 MG TAB PO SCH (07:24)
[2019-12-07] MEDS: LACTOBACILLUS ACIDOPHILUS 1 GM PACK PO SCH ×2 (07:24→11:31)
[2019-12-07] MEDS: POT PHOSPHATE MONOBASIC W/ SOD TAB NG SCH (07:24)
[2019-12-07] MEDS: LOPERAMIDE LIQUID 120 ML BOTTLE PO PRN (07:25)
[2019-12-07] MEDS: MULTI VIT W/MINERALS LIQUID 15 ML UDP NG SCH (07:27)
[2019-12-07] MEDS: FLUOXETINE HCL 20 MG/5 ML NG SCH (07:28)
[2019-12-07] MEDS: POTASSIUM CHLORIDE 20 MEQ/15 ML UDC PO SCH (07:28)
[2019-12-07] MEDS: LANSOPRAZOLE 30 MG SOLTAB PEG SCH (07:29)
[2019-12-07] MEDS: ASPIRIN 81 MG CHEW NG SCH (07:29)
[2019-12-07] MEDS: FERROUS SULFATE 325 MG/7.4 ML UDP PO SCH (07:29)
[2019-12-07] MEDS: ASCORBIC ACID 500 MG TAB PO SCH (07:29)
[2019-12-07] MEDS: MIDODRINE HCL 10 MG TAB PO SCH ×2 (07:30→11:31)
--- NOTE | 2019-12-07 15:31 | Discharge Summary ---
Date of Service December 07, 2019 Admission HPI Per Admitting Provider Patient is a 53-year-old female who presents to the ER for chest pain. She notes that the symptoms that have been there for the past several days to a week. She is truly uncertain. She also admits that her heart rate has been up. She denies any headache, change in vision, nausea vomiting or diarrhea. No dysuria urgency or frequency. No other exacerbating or remitting factors. History of a CVA with a right-sided deficit and difficulty talking. No other exacerbating or remitting factors. She was sent from [facility] for the elevated heart rate and hypotension. Patient denies any new weakness or numb ness. Admission Exam Per Admitting Provider The patient appeared well nourished and normally developed. Vital signs as documented. Head exam is normocephalic atraumatic no scleral icterus Neck is without JVD, thyromegaly, or carotid bruits. Lungs are clear to auscultation, no focal loss of breath sounds Cardiac exam, Rhythm is regular.. No murmurs, rubs or gallops. Abdominal exam reveals normal bowel sounds, soft non tender, no masses Extremities are nonedematous and both pedal pulses are normal. Neurologic exam is alert and oriented, no focal loss of strength or sensation Skin is without bruises or rashes Psychologically is without concerns for anxiety or depression. Principal Diagnosis bilateral PEs left lower extremity DVT retroperitoneal hemorrhage sepsis malnutrition Discharge Exam Constitutional Well-appearing 49-year-old female who is lying back in her hospital bed, looking out the window. She is conversive during our conversation; she demonstrates expressive aphasia at baseline. She is in no acute distress. Respiratory Good respiratory effort with symmetric expansion of the chest. Lungs are clear to auscultation bilaterally without any crackles or wheezes. Cardiovascular Normal rate and regular rhythm. S1 and S2 are present without any murmurs rubs or gallops. Gastrointestinal (Abdomen) Normoactive bowel sounds. Abdomen is soft, nontender, nondistended. Skin Just lateral to the left antecubital fossa, there is focalized patch of erythema with superficial desquamation that is slightly warm to the touch. Patient reports very mild tenderness. Discharge Data Allergies Allergy/AdvReac Type Severity Reaction Status Date / Time Sulfa (Sulfonamide Allergy Intermediate RASH TO Verified 11/10/19 12:36 Antibiotics) FACE Consultations 11/10/19 13:41 ED Decision to Admit Stat 11/10/19 16:10 Consult Case Management - Discharge Planning Routine 11/11/19 01:07 Consult Case Management - Discharge Planning Routine 11/11/19 16:15 Consult Neurology Routine 11/14/19 07:42 Consult Cardiology Routine 11/14/19 10:27 Consult Gastroenterology Routine 11/14/19 16:45 Consult Child Protective Services Social Worker Routine 11/15/19 07:27 Consult Vascular Surgery Routine 11/26/19 07:08 Consult Neurology Routine 11/27/19 15:36 Consult Palliative Care Routine Procedures Performed Operation Date: 11/15/19 11:40 Actual Procedures p Inferior Vena Cava Filter Placement, Right Femoral Approach, Ultrasound for Localization, Fluoroscopy for Positioning(Right) - Bera Covarrubias MD Ordered Studies 11/10/19 16:10 CT angio chest PE protocol Urgent US venous doppler LE BI Routine 11/11/19 09:00 CT abd pelvis wo con Stat 11/12/19 07:00 CT head/brain wo con Routine 11/14/19 22:06 US point of care ultrasound Stat 11/15/19 05:36 CT abd pelvis wo con Stat 11/15/19 11:03 EV IVC filter placement Routine US EV guide vascular access Routine 11/20/19 09:24 CT abd pelvis wo con Stat 11/22/19 02:00 CT abd pelvis IV con only Urgent 11/22/19 05:03 US point of care ultrasound Urgent 11/22/19 09:00 US venous doppler LE RT Urgent 11/23/19 10:55 US point of care ultrasound Urgent 11/25/19 20:40 CT head/brain wo con Urgent Hospital Course (1) Pulmonary embolism: This patient is a 49-year-old female with a Hx of stroke in May 2019, Crohn's disease, depression, with LLE DVT and multiple bilateral PEs. She has had a prolonged hospital stay due to a spontaneous retroperitoneal hemorrhage and septic shock secondary to a UTI. Her course has also been complicated by profound protein calorie malnutrition and hypoalbuminemia with anasarca and new onset seizure on 11/24. Pulmonary Embolism - On admission on 11/09, found to be tachycardic, tachypneic, and hypoxic - CT-A of the Chest performed in ED demonstrated bilateral pulmonary emboli - Doppler of the left lower extremity demonstrated a near-occlusive DVT involving the left popliteal vein - Started on heparin gtt and subsequently transitioned to Warfarin and DOAC - Stopped secondary to development of retroperitoneal hemorrhage - IVC filter placement on 11/15/19 - Further anticoagulation deferred due to bleeding risk with prior MCA stroke w/ hemorrhagic conversion & retroperitoneal bleed Retroperitoneal Bleed - Following initiation of anticoagulation for her bilateral PEs and LLE DVT, developed a retroperitoneal hemorrhage - Received multiple units of pRBC, FFP in the ICU over several days - CBC obtained daily throughout admission -- H&H continued to trend up, stabilizing in the low 8.0s later in her stay - Final H&H (12/05 - day before d/c): 7.9/25.0 with MCV 98. Asymptomatic. - F/U CBC upon discharge -- optimize nutritional support including folate, B12 through daily diet Sepsis with Septic Shock: Clinically Resolved Upon Discharge - Patient was documented to have E. coli UTI prior to admission -- was on cefdinir upon admission, transitioned to ceftriaxone - In the ICU, began developing profound hypotension (alongside being treated for retroperitoneal bleed) -- required many pressors, fluid infusions - On 11/20, spiked fever, profound hypotension, and lactic acidosis --> suspected d/t septic shot 2/2 EBSL E. coli from urine culture - Initially on Zosyn, then transitioned to ertapenem --> subsequently developed a seizure (see below) - Ertapenem d/c, continued treatment with ceftolozane/tazobactam x 7 days, finished course on 12/02 New-onset seizure, likely precipitated by combination of sepsis and ertapenem - Isolated seizure incident while being treated in the ICU for retroperitoneal hemorrhage and sepsis - Seen by neurology 11/29 - seizure thought to be 2/2 sepsis and being on ertapenem - Per neurology - if seizure recurs, Keppra 1g IV loading followed by Keppra 500mg b.i.d. - No new daily medications for this upon d/c h/o right dominant MCA stroke with residual Hemiplegia and hemiparesis: - Occurred prior to admission in 05/2019 - Secondary to large left MCA stroke and small right MCA stroke with asymptomatic hemorrhagic conversion as per notes from [facility] (05/2019) - Clinically, patient demonstrates significant right-sided hemiplegia and hemiparesis, alongside expressive aphasia -- all were unchanged through admission. Malnutrition/Hypoalbuminemia, complicated by anasarca - Noted to have significant hypoalbuminemia in the ICU complicated by anasarca - Patient's mother did note that Ileana had poor diet for the year preceding her stroke (05/2019) - Clinically still present on exam most notably in the form of lower extremity peripheral edema up to time of discharge (2-3+ b/l) - Final albumin was 1.2 (12/04) - See "feeding disorder" below Feeding disorder - NG tube placed 11/21/19 due to poor nutrition while in ICU; NG tube remains in place through today - DESKTOP SUPPORT MANAGER evaluation on 12/02/19, with feeding recommendations as follows: - easy to chew diet - pt will need fed all meals - discontinue feeding through NG tube as directed by physician and dietary - safe swallow strategies (small bites, small sips, slow rate) - aspiration precautions as outlined - fully upright and alert for any intake and cue for swallow if noting oral hold - clean mouth after intake and check for pocketing - Nutrition actively following to assist with nutrition and tube feeds. Appreciate their recommendations and assistance. - Fluoxetine 20mg PO increased to 40mg PO daily as method to increase appetite, mood, and support nutrition - Nutrition planning: -After several days of discussion, agreed NGT removal - 12/04 - Continue easy to chew diet and thin liquids while transitioning to [facility] - Utilize chloraseptic throat spray PRN for throat discomfort Inspector Insulation Goals - Palliative care consulted during stay -- discussed hospice/comfort care once back at [facility]. Patient is amenable to proceeding with these services. Erythematous rash, left antecubital fossa - Appreciated on physical exam on 12/05 - Clinically, this is an erythematous rash with very mild desquamation at the lateral aspect of the left antecubital fossa -- not near an IV site - DDX: mild cellulitis vs. superficial phlebitis - Begin Keflex 500mg PO b.i.d. x 7 days upon discharge Diarrhea - Pt with negative c. diff test on 11/22/2019 - In the days preceding 12/02, nursing reported increasing frequency of watery diarrhea - Retest of C. diff on 12/02 came back negative - Probiotics daily - Rectal tube was placed due to frequent diarrhea and sacral sores; wound care followed throughout course - Removed just prior to discharge alongside Plata Transaminitis, mild - LFTs continue to be stable today at AST 115 / ALT 93 / AlkPhos 160 - Yesterday: AST 122 / ALT 94 / AlkPhos 166 - Suspect this mild transaminitis is likely 2/2 resolving hepatic damage from recent septic shock episode (resolved), and possibly hepatic congestion - Malnutrition may also be contributory; no current or concerning signs for cholecystitis - Follow-up CMP in the outpatient setting GERD (gastroesophageal reflux disease): - Continue pantoprazole through the IV - Upon d/c, anticipate transition to pantoprazole PO Major depressive disorder: - Increase fluoxetine 20mg PO daily --> 40mg PO daily - Continue mirtazipine 15mg PO qPM Dispo: Med/Surg-- anticipate discharge tomorrow (12/06) to [facility] PT: Recommending trial of acute care PT at frequency of 2-3 days/week progressing as per her tolerance F/E/N: [id number]-[id number] diet. NG tube removed. PPX: Previously on heparin > lovenox > warfarin. Held d/t recent CVA and retroperitoneal hemorrhage. Now -- IVC filter and IV pantoprazole, as above CODE STATUS: DNR/DNI (2) Sepsis: (3) Retroperitoneal hemorrhage: (4) Deep vein thrombosis (DVT) of popliteal vein of left lower extremity: (5) Goals of care, counseling/discussion: (6) New onset seizure: (7) Anasarca: (8) Nausea & vomiting: (9) Abdominal pain: (10) Hypotension: (11) S/P insertion of IVC (inferior vena caval) filter: (12) Hemiplegia and hemiparesis following cerebral infarction affecting right dominant side: (13) Failure to thrive in adult: (14) Protein calorie malnutrition: (15) UTI (urinary tract infection): (16) Major depressive disorder: (17) GERD (gastroesophageal reflux disease): Total Time Total Time Spent Total Time Spent (In Minutes): 27 days Discharge Plan Discharge Items Patient Disposition: Transfer Long Term Fac Reason For Visit: TACHYCARDIA Discharge Diagnosis: sepsis bilateral PEs retroperitoneal bleed malnutrition Activity: Per Instructions section Non-emergency contact: Primary Care Provider Call non-emergency contact if: your symptoms worsen, your pain is not controlled and your temperature is above 101.5 Follow-up/Referrals: [facility] [Primary Care Provider] - Diet: Other - See Diet Comment Addtl Attending Provider Instructions: This patient is a 49-year-old female with a Hx of stroke in May 2019, Crohn's disease, depression, with LLE DVT and multiple bilateral PEs. She has had a prolonged hospital stay due to a spontaneous retroperitoneal hemorrhage and septic shock secondary to a UTI. Her course has also been complicated by profound protein calorie malnutrition and hypoalbuminemia with anasarca and new onset seizure on 11/24. Hemiplegia and hemiparesis following cerebral infarction affecting right dominant side: - Occurred prior to admission in 05/2019 - Secondary to large left MCA stroke and small right MCA stroke with asym ptomatic hemorrhagic conversion as per notes from [facility] (05/2019) - Clinically, patient demonstrates significant right-sided hemiplegia and hemiparesis, alongside expressive aphasia -- all were unchanged through admission. Pulmonary Embolism - On admission on 11/09, found to be tachycardic, tachypneic, and hypoxic - CT-A of the Chest performed in ED demonstrated bilateral pulmonary emboli - Doppler of the left lower extremity demonstrated a near-occlusive DVT involving the left popliteal vein - Started on heparin gtt and subsequently transitioned to Warfarin and DOAC - Stopped secondary to development of retroperitoneal hemorrhage - IVC filter placement on 11/15/19 - Further anticoagulation deferred due to bleeding risk with prior MCA stroke w/ hemorrhagic conversion & retroperitoneal bleed Retroperitoneal Bleed - Following initiation of anticoagulation for her bilateral PEs and LLE DVT, developed a retroperitoneal hemorrhage - Received multiple units of pRBC, FFP in the ICU over several days - CBC obtained daily throughout admission -- H&H continued to trend up, stabilizing in the low 8.0s later in her stay - Final H&H (12/05 - day before d/c): 7.9/25.0 with MCV 98. Asymptomatic. - F/U CBC upon discharge -- optimize nutritional support including folate, B12 through daily diet Sepsis with Septic Shock: Clinically Resolved Upon Discharge - Patient was documented to have E. coli UTI prior to admission -- was on cefdinir upon admission, transitioned to ceftriaxone - In the ICU, began developing profound hypotension (alongside being treated for retroperitoneal bleed) -- required many pressors, fluid infusions - On 11/20, spiked fever, profound hypotension, and lactic acidosis --> suspected d/t septic shot 2/2 EBSL E. coli from urine culture - Initially on Zosyn, then transitioned to ertapenem --> subsequently developed a seizure (see below) - Ertapenem d/c, continued treatment with ceftolozane/tazobactam x 7 days, finished course on 12/02 New-onset seizure, likely precipitated by combination of sepsis and ertapenem - Isolated seizure incident while being treated in the ICU for retroperitoneal hemorrhage and sepsis - Seen by neurology 11/29 - seizure thought to be 2/2 sepsis and being on ertapenem - Per neurology - if seizure recurs, Keppra 1g IV loading followed by Keppra 500mg b.i.d. - No new daily medications for this upon d/c Malnutrition/Hypoalbuminemia, complicated by anasarca - Noted to have significant hypoalbuminemia in the ICU complicated by anasarca - Patient's mother did note that Ileana had poor diet for the year preceding her stroke (05/2019) - Clinically still present on exam most notably in the form of lower extremity peripheral edema up to time of discharge (2-3+ b/l) - Final albumin was 1.2 (12/04) - See "feeding disorder" below Feeding disorder - NG tube placed 11/21/19 due to poor nutrition while in ICU; NG tube remains in place through today - DESKTOP SUPPORT MANAGER evaluation on 12/02/19, with feeding recommendations as follows: - easy to chew diet - pt will need fed all meals - discontinue feeding through NG tube as directed by physician and dietary - safe swallow strategies (small bites, small sips, slow rate) - aspiration precautions as outlined - fully upright and alert for any intake and cue for swallow if noting oral hold - clean mouth after intake and check for pocketing - Nutrition actively following to assist with nutrition and tube feeds. Appreci ate their recommendations and assistance. - Fluoxetine 20mg PO increased to 40mg PO daily as method to increase appetite, mood, and support nutrition - Nutrition planning: -After several days of discussion, agreed NGT removal - 12/04 - Continue easy to chew diet and thin liquids while transitioning to [facility] - Utilize chloraseptic throat spray PRN for throat discomfort Fdc Goals - Palliative care consulted during stay -- discussed hospice/comfort care once back at [facility]. Patient is amenable to proceeding with these services. Erythematous rash, left antecubital fossa - Appreciated on physical exam on 12/05 - Clinically, this is an erythematous rash with very mild desquamation at the lateral aspect of the left antecubital fossa -- not near an IV site - DDX: mild cellulitis vs. superficial phlebitis - Begin Keflex 500mg PO b.i.d. x 7 days upon discharge Diarrhea - Pt with negative c. diff test on 11/22/2019 - In the days preceding 12/02, nursing reported increasing frequency of watery diarrhea - Retest of C. diff on 12/02 came back negative - Probiotics daily - Rectal tube in place due to frequent diarrhea and sacral sores; wound care followed throughout course - Removed just prior to discharge alongside Plata Transaminitis, mild - LFTs continue to be stable today at AST 115 / ALT 93 / AlkPhos 160 - Yesterday: AST 122 / ALT 94 / AlkPhos 166 - Suspect this mild transaminitis is likely 2/2 resolving hepatic damage from recent septic shock episode (resolved), and possibly hepatic congestion - Malnutrition may also be contributory; no current or concerning signs for cholecystitis - Follow-up CMP in the outpatient setting GERD (gastroesophageal reflux disease): - Continue pantoprazole through the IV - Upon d/c, anticipate transition to pantoprazole PO Major depressive disorder: - Increase fluoxetine 20mg PO daily --> 40mg PO daily - Continue mirtazipine 15mg PO qPM Dispo: Med/Surg-- anticipate discharge tomorrow (12/06) to [facility] PT: Recommending trial of acute care PT at frequency of 2-3 days/week progressing as per her tolerance F/E/N: [id number] diet. NG tube removed. PPX: Previously on heparin > lovenox > warfarin. Held d/t recent CVA and retroperitoneal hemorrhage. Now -- IVC filter and IV pantoprazole, as above CODE STATUS: DNR/DNI Pending Studies at Discharge: Yes (COVID swab) Stand-Alone Forms: [facility] Sk[facility] Patient informed of condition?: Yes DNR: Yes Discharge Level of Care: Skilled Communicable Disease: No Discharge Prognosis: Stable Lines: None Urinary Catheter: Yes (and rectal tube ) Medications and DC Order Prescriptions: New acetaminophen 325 mg Tablet 650 mg PO Q4H PRN30 Days Qty: 0 RF: 0 ascorbic acid (vitamin C) [Vitamin C] 500 mg Tablet 500 mg PO QAM Qty: 0 RF: 0 aspirin 81 mg Tablet,Chewable 81 mg PO DAILY Qty: 0 RF: 0 Sore Throat (phenol) 1.4 % Aerosol,[place] 2 spray MT Q3H PRNQty: 0 RF: 0 Calmoseptine 0.44-20.6 % Ointment 1 applic EXT TID PRN (Reason: skin irritation) 30 Days RF: 0 lansoprazole [Prevacid SoluTab] 30 mg Tablet,Disintegrat, Delay Rel 30 mg PO DAILY Qty: 0 RF: 0 ferrous sulfate 220 mg (44 mg iron)/5 mL Elixir 44 mg PO QAM Qty: 5 RF: 0 cephalexin [Keflex] 500 mg capsule 500 mg PO BID 7 Days Qty: 14 RF: 0 Continued multivitamin Tablet 1 tab PO DAILY RF: 0 metoprolol tartrate 25 mg Tablet 12.5 mg PO BID RF: 0 Saccharomyces boulardii [Florastor] 250 mg capsule 250 mg PO BID Qty: 20 RF: 0 atorvastatin 40 mg Tablet 40 mg PO PM RF: 0 ondansetron HCl [Zofran] 4 mg Tablet 4 mg PO Q6H PRN (Reason: Nausea) RF: 0 thiamine HCl (vitamin B1) 100 mg Tablet 100 mg PO QAM RF: 0 Fleet Enema 19-7 gram/118 mL Enema 118 ml CO DAILY PRN (Reason: Constipation) RF: 0 mirtazapine 15 mg Tablet 15 mg PO PM RF: 0 gabapentin 100 mg Capsule 100 mg PO PM RF: 0 magnesium hydroxide [Milk Of Magnesia Concentrated] 2,400 mg/10 mL Suspension 30 ml PO DAILY PRN (Reason: Constipation) RF: 0 Lactobacillus acidoph-L.bulgar [Floranex] 1 million cell Tablet 1 tab PO QDL Qty: 0 RF: 0 Changed polyethylene glycol 3350 [Miralax] 17 gram Powder In Packet 17 g PO ONCE PRN (Reason: constipation) Qty: 0 RF: 0 loperamide 2 mg Tablet 2 mg PO TID PRN (Reason: loose stool) Qty: 0 RF: 0 bisacodyl 5 mg Tablet,Delayed Release (Dr/Ec) 20 mg PO HS PRN (Reason: constipation) Qty: 0 RF: 0 fluoxetine 20 mg Capsule 40 mg PO QAM Qty: 30 RF: 0 Discontinued enoxaparin 40 mg/0.4 mL syringe 40 mg subcut DAILY RF: 0 bisacodyl 5 mg Suppository 5 mg CO BID PRN (Reason: Constipation) RF: 0 pantoprazole 20 mg Tablet,Delayed Release (Dr/Ec) 20 mg PO QAM RF: 0 aspirin 81 mg Tablet,Chewable 81 mg PO QAM RF: 0 acetaminophen [Tylenol] 325 mg Capsule 325 mg PO QID PRN (Reason: Pain) RF: 0 Calmoseptine 0.44-20.6 % Ointment 1 applic TOPICAL TID PRN (Reason: Skin Irritation) RF: 0 Discharge Orders: Discharge Order (Routine); Ordered 12/07/19 Ordered By: Sundeep Peterson Admission Data Admit Date/Time: 11/11/19 11:38 Attending Provider: Symone Peter Admit Provider: John Davis Primary Care Provider: Miri March Other Providers: Miri March ; Libra Calles ; John Davis ; Karen Avendaño ; Mat Pennington ; Mark Resendez ; Domenic Rinaldi ; Bear Covarrubias ; Lee De Jesus ; Abby Gutierrez ; Sundeep Hagen Other Interventions: Discharge Summary Assessment (RN) Last Done: 12/07/19 14:05 Supervising Physician Co-Signing Physician Notes Resident Physician Supervision Note: I independently interviewed and examined the patient and verified the armstrong history and physical, reviewed labs and image studies, discussed the case with the resident Dr. Peterson and agree with the findings and care plan. Resident Activity Tracking Resident Involvement: Resident Care Provided Care Provided: Adult Hospital Medicine
== END 2019-12-07 15:44 | disposition hospice, inpatient (51) | DRG 166 ==
LOC: ED 10:37 → 2N 10:37 → SUATTDRO 14:09 → 2N 15:43 → 2S 11-11 11:30 → SUATTDRO 11-11 11:38 → 1E 11-14 16:42 → 2E 11-19 14:51 → 1E 11-20 09:36 → 2S 11-21 19:36 → 1E 11-22 04:15 → 2S 11-28 19:07 → 2N 12-01 10:34